=== PATIENT | male | born 1965 | race Caucasian/White ===

== ENCOUNTER → 2017-10-18 14:40 | Outpatient (CLI) | payer MEDICAID, SELFPAY ==
--- NOTE | 2017-10-18 14:43 | MR_ITS ---
MR elbow RT wo con CLINICAL INDICATION: Pain and swelling in elbow ITS.REASON: LATERAL EPICONDYLITIS, RIGHT ELBOW ORDERING PHYSICIAN: Damien Childs PATIENT AGE: 51 years Comparison: 09/14/2016 TECHNIQUE: Routine multiplanar multiecho sequences are performed without contrast. FINDINGS: Motion artifact obscures fine detail. This is especially prominent on the coronal 3-D images. Ligamentous structures are somewhat obscured secondary to the motion artifact which may result in false-positive or false-negative findings. A marker is placed along the medial aspect of the elbow joint as apparent palpable abnormality. No obvious fracture or bone bruise. There is a small amount fluid within the elbow joint. Mild soft tissue swelling is present in the subcutaneous region in the medial aspect of the elbow just superior to the placed marker. There is mild thickening of the common extensor tendon suggesting mild lateral epicondylitis. A small amount fluid is present in this region as well. As mentioned previously the lateral collateral ligament is not identified and may be torn. The biceps tendon and triceps tendon are intact. IMPRESSION: 1. Study is somewhat limited secondary to motion artifact. The ligaments about the elbow are therefore not well delineated. 2. There is mild soft tissue swelling along the medial aspect of the elbow involving the subcutaneous soft tissues. 3. 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
== END ==
PROVIDERS: Family Provider Emergency Medicine; PCP Emergency Medicine; Visit Provider Orthopaedic Surgery Adult Reconstructive Orthopaedic Surgery
DX: M77.11 Lateral epicondylitis, right elbow (principal)
CPT/HCPCS: 73221

== ENCOUNTER → 2018-02-01 14:19 | Outpatient (CLI) | payer MEDICAID, SELFPAY ==
--- NOTE | 2018-02-01 14:25 | US_ITS ---
US kidney retroperitoneal comp HISTORY: ITS.REASON: ABNORMAL KIDNEY FUNCTION ORDERING PHYSICIAN: Sana Serrano PATIENT AGE: 52 years Comparison: None FINDINGS: RIGHT KIDNEY:Unremarkable. Normal size and echogenicity. No hydronephrosis 10 x 5 x 7 cm LEFT KIDNEY:Unremarkable. No hydronephrosis. Normal size and echogenicity. 10 x 5 x 6 cm OTHER FINDINGS: No other pertinent findings IMPRESSION: Unremarkable renal ultrasound
== END ==
PROVIDERS: PCP Nurse Practitioner; Visit Provider Nurse Practitioner
DX: R94.4 Abnormal results of kidney function studies (principal)
CPT/HCPCS: 76770

== ENCOUNTER → 2018-05-18 11:25 | Outpatient (CLI) | payer MEDICAID, SELFPAY | PROVIDERS: PCP Nurse Practitioner; Visit Provider Physician Assistant | DX: R07.9 Chest pain, unspecified (principal); R94.31 Abnormal electrocardiogram [ECG] [EKG]; F17.200 Nicotine dependence, unspecified, uncomplicated; I10 Essential (primary) hypertension; I25.118 Atherosclerotic heart disease of native coronary artery with other forms of angina pectoris | CPT/HCPCS: 93225 ==

== ENCOUNTER → 2018-05-24 11:27 | Outpatient (CLI) | payer MEDICAID, SELFPAY ==
--- NOTE | 2018-05-24 11:31 | NM_ITS ---
History and Indications: History of [place], hypertension, tobacco use, family history, chest pain, palpitations, fatigue and abnormal EKG. Procedure: Patient received a 0.4 mg of intravenous Lexiscan, resting heart rate was 58 beats prominent, resting blood pressure 155/90, with intravenous was 87 bpm which is less than 85% of the maximum predicted heart rate and a blood pressure was 122/90. With Lexiscan patient complained of shortness of breath. Electrocardiogram: Resting electrocardiogram showed sinus bradycardia, rightward axis, with Lexiscan there is less than 1.[address] segment depression noted from the baseline EKG. The EKG portion of the Lexiscan Myoview is nondiagnostic. Cardiac stress and resting SPECT images: Cardiac stress and resting SPECT images were obtained using technetium 99 Myoview 32.0 mCi stress and 10.4 mCi at rest. Gated SPECT further analysis of segmental wall motion and calculation of the ejection fraction also done. Cardiac stress and resting SPECT images show uniform myocardial activity without segmental perfusion abnormality, computer derived ejection fraction is 58% with no regional wall motion abnormality, right ventricle is normal size and contractility. Conclusion: 1. The EKG portion of the Lexiscan Myoview is nondiagnostic. 2. No scintigraphic evidence of reversible ischemia seen, computer derived ejection 58% with no regional wall motion abnormality, right ventricle is normal size and contractility. 3. Normal Lexiscan Myoview study.
--- NOTE | 2018-05-24 11:48 | CA_ITS ---
PROCEDURE: 2-D M-mode and color Doppler study INDICATIONS FOR THE TEST: Chest pain + COPD Heart Murmur Tobacco Smoking+ Palpitations Fatigue Syncope Edema Hypertension+Diabetes Mellitus Rheumatic Fever SOB SPENCER Obesity Hyperlipidemia Family History HD Additional History CAD, ABN EKG PATIENT INFORMATION HEIGHT: 72 WEIGHT:237 GENDER: Male B/P:146/91 2-D/M-MODE INTERPRETATION: 2-D MEASUREMENTS OBSERVED VALUES IN CMS Right Ventricular Dimension (RVDd) 2.6 Interventricular Septum (Thickness)(IVsd) 1.5 Left Ventricular Internal Dimensions(LVIDd) 5.1 Left Ventricular Posterior Wall (Thickness)(LVPWd) 1.2 Aortic Root 3.9 Aortic Cusp Separation 2.1 Left Atrial Dimensions (LAD) 3.7 2D 1. Left atrium is mildly enlarged, left ventricle is normal size, there is mild concentric left ventricular hypertrophy, visually estimated ejection fraction 55% with no regional wall motion abnormality. 2. The right atrium and right ventricle are mildly enlarged with normal contractility. 3. The aortic valve is minimally thickened and fibrosed. 4. The mitral and tricuspid valvular grossly normal. 5. The pulmonic valve is poorly visualized. 6. No significant pericardial effusion noted. DOPPLER INTERROGATION: Doppler interrogation of the aortic, mitral and tricuspid valvular presence of mild mitral and tricuspid regurgitation, tricuspid regurgitation jet velocity is inadequate for calculation of the right ventricular systolic pressure, grade 1 diastolic dysfunction seen with tissue Doppler evidence of raised left atrial pressure. CONCLUSION: 1. Mildly enlarged left atrium, normal left ventricular size, mild concentric left ventricular hypertrophy, visually estimated ejection fraction 55% with no regional wall motion abnormality, grade 1 diastolic dysfunction seen with tissue Doppler evidence of raised left atrial pressure. 2. Mildly enlarged right ventricle with normal contractility. 3. Mild mitral and tricuspid regurgitation 4. No significant pericardial effusion noted.
--- NOTE | 2018-05-24 14:50 | HMH.ITSHM ---
Current Home Medications as stated by this patient Luca Kauffman or passenger relations representative. []LISINOPRIL ISOSORBIDE MEDCAVE VYCODENE
== END ==
PROVIDERS: PCP Family Medicine; Visit Provider Internal Medicine
DX: R07.9 Chest pain, unspecified (principal); R94.31 Abnormal electrocardiogram [ECG] [EKG]; I10 Essential (primary) hypertension; I25.118 Atherosclerotic heart disease of native coronary artery with other forms of angina pectoris; F17.200 Nicotine dependence, unspecified, uncomplicated
CPT/HCPCS: 78452; 93306; A9502; J2785

== ENCOUNTER → 2018-08-27 12:27 | Outpatient (CLI) | payer MEDICAID, SELFPAY ==
--- NOTE | 2018-08-27 12:29 | CT_ITS ---
CT chest wo con HISTORY: Abnormal chest x-ray, chest pain, ovary nodule ITS.REASON: PULMONARY NODULE ORDERING PHYSICIAN: Marquise Wilkins PATIENT AGE: 52 years COMPARISON: 07/30/2018 Technique: Axial images obtained without contrast. Sagittal, and coronal reformatted images are also generated and reviewed. All CT scans at the facility use one or more dose reduction, viz: automated exposure control, ma/kV adjustment per patient size (including targeted exams where dose is matched to indication, i.e. head), or iterative reconstruction technique. FINDINGS: Thyroid gland is slightly prominent on both sides. Scattered small lymph nodes are present in the mediastinum and janene. Normal heart size. No evidence pericardial effusion. There are centrilobular emphysematous changes with scattered areas of scarring with coarsening of the bronchovascular markings and mild prominence of the interstitium which may be seen with smoking-related lung disease. Please correlate with clinical findings. No lobar consolidation or collapse. There is an overall slight haziness of the pulmonary markings. There is a 5 mm noncalcified nodule in the left lower lobe. There is a 9 mm parenchymal opacity in the right upper lobe anteriorly in the subpleural region which may be related to an area of parenchymal scarring. A small fissural nodules present on the right in the mid aspect of the major fissure at 5 mm. The abnormality noted on the radiograph is felt to be related to some scarring in the right middle lobe. No acute bony findings. IMPRESSION: 1. Centrilobular emphysema with COPD with coarsening of the bronchovascular markings and mild prominence of interstitium with an overall hazy appearance of the lung markings on both sides which may be related to smoking-related lung disease. 2. Scattered parenchymal opacities as described above which represent areas of parenchymal scarring including a 8 mm opacity in the right upper lobe medially. Recommend 6 month follow-up to confirm stability
== END ==
PROVIDERS: PCP Nurse Practitioner; Visit Provider Internal Medicine Critical Care Medicine
DX: R91.1 Solitary pulmonary nodule (principal)
CPT/HCPCS: 71250

== ENCOUNTER → 2018-09-13 14:11 | Outpatient (CLI) | payer MEDICAID, SELFPAY ==
[2018-09-13 18:21] LABS: Free T4 (Free Thyroxine) 0.94 ng/dl (0.76-1.46)
== END ==
PROVIDERS: Visit Provider Otolaryngology
DX: E01.0 Iodine-deficiency related diffuse (endemic) goiter (principal); R13.10 Dysphagia, unspecified
CPT/HCPCS: 36415; 84439; 84443

== ENCOUNTER → 2018-09-19 08:36 | Outpatient (CLI) | payer MEDICAID, SELFPAY ==
--- NOTE | 2018-09-19 08:39 | FL_ITS ---
EXAM: Barium swallow/esophagram. INDICATION: ITS.REASON: dysphagia ORDERING PHYSICIAN: Gilbert Stark MD PATIENT AGE: 52 years COMPARISON: None TECHNIQUE: In the upright position the patient was observed to swallow barium in both the AP and lateral view. The cervical esophagus was examined under fluoroscopy with images obtained. The patient was then placed prone in the right anterior oblique position and was observed to swallow barium with Valsalva technique . FLUOROSCOPY TIME: 56 seconds FINDINGS: There was no evidence of aspiration. There was normal peristalsis. No filling defects or mucosal abnormalities. No masses or strictures. No hiatal hernia or reflux demonstrated. The esophagus does not appear deviated IMPRESSION: Negative barium swallow.
--- NOTE | 2018-09-19 08:39 | US_ITS ---
US thyroid HISTORY: ITS.REASON: enlarged thyroid ORDERING PHYSICIAN: Gilbert Stark MD PATIENT AGE: 52 years Comparison: None FINDINGS: The isthmus is prominent at 6 mm. The right lobe measures 4.7 x 1 point #2.3 cm. The left lobe measures 4.5 x 1.8 x 2.6 cm. No discrete mass evident. No cyst apparent IMPRESSION: Thyroid enlargement, no discrete nodules apparent
== END ==
PROVIDERS: PCP Family Medicine; Visit Provider Otolaryngology
DX: E01.0 Iodine-deficiency related diffuse (endemic) goiter (principal); R13.10 Dysphagia, unspecified
CPT/HCPCS: 74220; 76536

== ENCOUNTER → 2019-01-04 10:03 | Outpatient (CLI) | payer MEDICAID, SELFPAY ==
[2019-01-04 11:06] LABS: Basophils # 0.1 K/mm3 (0-0.2); Basophils % 0.9 % (0.1-2.0); Eosinophils # 0.3 K/mm3 (0.0-0.4); Eosinophils % 3.4 % (0.1-12.0); Hematocrit 48.7 % (42.0-52.0); Hemoglobin 16.4 g/dL (14.1-18.0); Lymphocytes # 2.2 K/mm3 (0.7-4.5); Lymphocytes % 29.9 % (10-50); Mean Corpuscular HGB Conc 33.7 g/dL (31.8-35.4); Mean Corpuscular Hemoglobin 31.8 pg (27.0-31.2); Mean Corpuscular Volume 94.3 fl (80-94); Mean Platelet Volume 10.1 fl (7.4-10.4); Monocytes # 0.4 K/mm3 (0.1-1.0); Monocytes % 5.8 % (1.7-9.3); Neutrophils # 4.4 K/mm3 (1.8-7.8); Neutrophils % 59.9 % (37.0-80.0); Platelet Count 132 K/mm3 (142-424); Red Blood Count 5.16 M/mm3 (4.60-6.20); Red Cell Distribution Width 13.3 % (11.5-17.5); White Blood Count 7.3 K/mm3 (4.8-10.8)
[2019-01-04 13:32] LABS: Alanine Aminotransferase 31 U/L (12-78); Albumin Level 3.5 gm/dL (3.4-5.0); Albumin/Globulin Ratio 1.2 (1.1-1.8); Alkaline Phosphatase 150 U/L (46-116); Anion Gap 12.4 mEq/L (5-15); Aspartate Amino Transferase 13 U/L (15-37); Bilirubin,Total 0.4 mg/dL (0.2-1.0); Blood Urea Nitrogen 7 mg/dL (7-18); Calcium 8.7 mg/dL (8.5-10.1); Carbon Dioxide 29 mmol/L (21.0-32.0); Chloride 105 mmol/L (98-107); Creatinine,Serum 1.14 mg/dL (0.70-1.30); Estimated Glomerular Filt Rate 68 ml/min (>60); GFR (African American) 82 ML/MIN (>60); Glucose 93 mg/dL (74-106); Potassium 3.4 mmoL/L (3.5-5.1); Sodium 143 mmol/L (136-145); Thyroid Stimulating Hormone 1.82 uIU/ml (0.358-3.740); Total Protein,Serum 6.5 gm/dL (6.4-8.2)
[2019-01-07 15:26] LABS: Anti-Centromere B Antibodies <0.2 AI (0.0-0.9); Anti-Jo-1 <0.2 AI (0.0-0.9); Anti-Smith Antibody <0.2 AI (0.0-0.9); Antichromatin Antibodies 0.5 AI (0.0-0.9); Antiscleroderma-70 Antibodies <0.2 AI (0.0-0.9); RNP Antibodies <0.2 AI (0.0-0.9); Sjogren's Anti-SS-A <0.2 AI (0.0-0.9); Sjogren's Anti-SS-B <0.2 AI (0.0-0.9)
[2019-01-08 06:56] LABS: Anti-DNA (DS) Ab Qn 1 IU/mL (0-9)
== END ==
PROVIDERS: Visit Provider Nurse Practitioner Family
DX: R59.0 Localized enlarged lymph nodes (principal); R53.83 Other fatigue
CPT/HCPCS: 36415; 80053; 82330; 84443; 85025; 86225; 86235

== ENCOUNTER → 2019-01-22 07:40 | Outpatient (CLI) | payer MEDICAID, SELFPAY ==
--- NOTE | 2019-01-22 07:50 | US_ITS ---
PROCEDURE: US ABDOMEN COMPLETE CLINICAL INDICATION: SPLENOMEGALY COMPARISON: [facility] CT abdomen pelvis wo con from 07/30/2018 FINDINGS: PANCREAS: Unremarkable. No obvious mass or abnormal fluid collection. No ductal dilatation LIVER: No focal liver lesions demonstrated. Homogeneous echogenicity. No intrahepatic biliary ductal dilatation evident. There is appropriate direction of blood flow within a non dilated portal vein RIGHT KIDNEY: Unremarkable. Normal size and echogenicity. No hydronephrosis LEFT KIDNEY: Unremarkable. Normal size and echogenicity. No hydronephrosis GALLBLADDER: Prior cholecystectomy. Common bile duct is normal at 3 mm AORTA: No evidence of aneurysmal dilatation. SPLEEN: Borderline splenomegaly at 13 cm. Homogeneous echogenicity of the spleen ASCITES: None demonstrated. IMPRESSION: Borderline splenomegaly. Status post cholecystectomy Dictated by: Tom Knox MD 01/22/2019 10:54 Signed by: <Electronically signed by Tom Knox MD in [place]> 01/22/2019 10:54
== END ==
PROVIDERS: PCP Nurse Practitioner; Visit Provider Nurse Practitioner
DX: D73.81 Neutropenic splenomegaly (principal)
CPT/HCPCS: 76700

== ENCOUNTER 2019-02-18 10:47 | Observation (INO) ==
--- NOTE | 2019-02-18 11:08 | Emergency Department Note ---
ED Disposition Clinical Impression: Allergic reaction Qualifiers: Encounter type: initial encounter Qualified Code(s): T78.40XA - Allergy, unspecified, initial encounter Disposition: Admitted As Inpatient Condition on Discharge: Fair Referrals: Sana Serrano APRN [Primary Care Provider] - - Critical Care Critical Care Time: No Attestation: On 02/18/19, the high probability of a clinically significant, sudden or life threatening deterioration of the following system(s) required my full and direct attention, intervention and personal management. The time I documented below is in addition to time spent performing reported procedures but includes the following listed in this critical care notation. Medical Decision Making - [place] Inquiry Pt receiving controlled substance: No Vital Signs: 02/18/19 11:00 Temperature 99.4 F Temperature Source Oral Pulse Rate [Left Radial] 71 Respiratory Rate 18 Blood Pressure [Right Arm] 129/92 H Blood Pressure Mean [Right Arm] 104 Blood Pressure Source [Right Arm] Automatic Cuff Blood Pressure Position [Right Arm] Sitting 02 Sat by Pulse Oximetry 96 Oxygen Delivery Method Room Air Orders (Tests/Meds): ED MEDICATIONS Generic Name Dose Route Start Last Admin Trade Name Freq PRN Reason Stop Dose Admin Sodium Chloride 8 ml 02/18/19 11:10 02/18/19 11:16 Sodium Chloride 0.9% 10ml Vial IV 03/20/19 11:09 8 ml NEEDED PRN Administration dilute pepcid Discontinued Medications Generic Name Dose Route Start Last Admin Trade Name Freq PRN Reason Stop Dose Admin Diphenhydramine HCl 50 mg 02/18/19 11:05 02/18/19 11:16 Benadryl 50mg/1ml Vial IV 02/18/19 11:06 50 mg ONCE ONE Administration Famotidine 20 mg 02/18/19 11:10 02/18/19 11:16 Pepcid 20mg/2ml Vial IV 02/18/19 11:11 20 mg ONCE ONE Administration ORDERS Category Date Time Status BMP [Basic Metabolic Panel] Stat Lab 02/18/19 11:04 Ordered Complete Blood Count Auto Diff Stat Lab 02/18/19 11:04 Ordered Medical Decision Narrative: Patient with possible allergic reaction, also considered reaction to lisinopril given swollen tongue and lower lip. He complains of left eyelid swelling, but really this appears to be more related to a stye as the entire lid is not swollen. Will hold lisinopril, admit for observation. No airway emergency at this time and patient does not feel like he is having any breathing difficulties. He states that he "swells" with steroids, so I have given him IV Benadryl and Pepcid at this time. Discussed his case with Dr. Roach and patient will be admitted for further management. Allergic React/Insect Bite HPI - General Chief complaint: Allergic Reaction Stated complaint: lips and eyes are swollen Time Seen by Provider: 02/18/19 11:05 Mode of Arrival - ED Triage: Ambulatory Limitations: No Limitations - History of Present Illness HPI narrative: This is a 53-year-old male with a past medical history significant for hypertension, COPD who presents to the emergency department for lip, tongue, left eyelid swelling since yesterday. He tried taking Benadryl last night, but symptoms were worse this morning. He states that he cannot take steroids and is allergic to these. He has multiple medication allergies, but has not had any new medications, new foods or new environmental exposures to his knowledge. He denies any difficulty breathing. He does take lisinopril once a day, but has never had an allergic reaction before to this. He denies any chest pain, vomiting. MD complaint: allergic reaction Allergies/Adverse Reactions: Allergies Allergy/AdvReac Type Severity Reaction Status Date / Time ciprofloxacin Allergy Severe S-DIFF. Verified 09/13/18 13:34 BREATHING; SWELLING Corticosteroids Allergy Severe S-SWELLS-OR Verified 09/13/18 13:34 (Glucocorticoids) AL/THROAT erythromycin base Allergy Severe S-DIFF. Verified 09/13/18 13:34 BREATHING; SWELLING Fish Containing Products Allergy Severe S-DIFF. Verified 09/13/18 13:34 [From SEAFOOD (F/D)] BREATHING; SWELLING iopamidol Allergy Severe S-DIFF. Verified 09/13/18 13:34 BREATHING; SWELLING NSAIDS (Non-Steroidal Allergy Severe BLEEDING Verified 09/13/18 13:34 Anti-Inflamma Penicillins Allergy Severe S-DIFF. Verified 09/13/18 13:34 BREATHING; SWELLING tramadol Allergy Severe S-DIFF. Verified 09/13/18 13:34 BREATHING; SWELLING From SEAFOOD (F/D) Allergy Severe S-DIFF. Uncoded 05/08/18 14:05 BREATHING; SWELLING - Related Data Home Medications Medication Instructions Recorded Confirmed hydrocodone 5 mg-acetaminophen 500 1 tab PO QID PRN tab 07/21/17 02/18/19 mg tablet nitroglycerin 0.4 mg sublingual 0.4 mg SUBLINGUAL Q5M PRN 07/21/17 02/18/19 tablet pantoprazole 40 mg tablet,delayed 40 mg PO QAM 07/21/17 02/18/19 release methocarbamol 750 mg tablet 750 mg PO QID PRN 02/08/18 02/18/19 Amlodipine Besylate 2.5 mg PO DAILY 07/30/18 02/18/19 Isosorbide Mononitrate [Imdur 30mg 30 mg PO DAILY 07/30/18 02/18/19 ER tablet] Lisinopril/Hydrochlorothiazide 1 tab PO DAILY 07/30/18 02/18/19 [Lisinopril-Hctz 10-12.5 mg Tab] [facility] History - Hepatitis A Screen Drug use history?: No High risk sexual behaviors?: No History of sexually transmitted infection?: No Currently employed?: No Childcare worker?: No Do you have indoor plumbing?: No Do you have electricity?: Yes Attestation statement:: This patient has been screened for Hepatitis A risk factors. Medical History: Reports:: Asthma, Cancer, Chronic Obstructive Pulmonary Disease (COPD), Gastroesophageal Reflux Disease(GERD), Hypertension, Palpitations Denies:: Diabetes Mellitus Type 1, Diabetes Mellitus Type 2 Other Medical History: Reports: Arthritis Laterality Cases: Right: Arthroscopy Shoulder, Bilateral: Arthroscopy Knee Other Surgeries: Yes: Cancer Surgery, Cardiac Catheterization, Cholecystectomy, Colonoscopy, Other Amputation: No Fractures: No Comment: hemorrhoid, R tendon repair Elbow & Wrist. - Social History Smoking Status: Current every day smoker Tobacco Type: cigarettes # Packs/Day (cigarettes): 1 Alcohol Intake: never Alcohol Intake Frequency:: 0-2 drinks per day Substance Use Type: denies use Occupational Status: other Family Hx:: Coronary Artery Disease, Heart Attack ROS Obtained: Yes All systems reviewed & no additional complaints Physical Exam - General General appearance: alert, in no apparent distress - Eye Eye exam: Present: PERRL, other (Mild swelling of the upper lid on the left) - ENT ENT exam: Present: other (Swollen tongue and lower lip,) - Neck Neck exam: Present: normal inspection, full ROM, trachea midline. Absent: meningismus, lymphadenopathy - Respiratory Respiratory exam: Present: normal lung sounds bilaterally. Absent: respiratory distress - Cardiovascular Cardiovascular exam: Present: regular rate, normal rhythm. Absent: JVD - Abdominal Exam Abdominal exam: Present: soft, normal bowel sounds. Absent: distention, tenderness, guarding - Extremities Exam Extremities exam: Present: normal inspection, normal capillary refill. Absent: joint swelling - Neurological Exam Neurological exam: Present: alert, oriented X3 - Psychiatric Psychiatric exam: Present: normal affect, normal mood - Skin Skin exam: Present: warm, dry, intact, normal color. Absent: rash
[2019-02-18 11:32] LABS: Basophils # 0.1 K/mm3 (0-0.2); Basophils % 0.7 % (0.1-2.0); Eosinophils # 0.3 K/mm3 (0.0-0.4); Eosinophils % 3.6 % (0.1-12.0); Hematocrit 51.7 % (42.0-52.0); Hemoglobin 16.7 g/dL (14.1-18.0); Lymphocytes # 2.4 K/mm3 (0.7-4.5); Lymphocytes % 27.8 % (10-50); Mean Corpuscular HGB Conc 32.2 g/dL (31.8-35.4); Mean Corpuscular Volume 95.9 fl (80-94); Mean Platelet Volume 10.1 fl (7.4-10.4); Monocytes # 0.6 K/mm3 (0.1-1.0); Neutrophils # 5.2 K/mm3 (1.8-7.8); Neutrophils % 60.9 % (37.0-80.0); Platelet Count 154 K/mm3 (142-424); Red Blood Count 5.39 M/mm3 (4.60-6.20); Red Cell Distribution Width 13.6 % (11.5-17.5); White Blood Count 8.5 K/mm3 (4.8-10.8)
[2019-02-18 12:02] LABS: Anion Gap 12.7 mEq/L (5-15); Calcium 8.9 mg/dL (8.5-10.1)
--- NOTE | 2019-02-18 17:46 | H&P/Discharge Summary ---
General - General Admission date:: 02/18/19 Discharge date: 02/18/19 *Admission Date: 02/18/19 *Chief complaint: Swelling of lips and eyes *History of present illness: 53-year-old male presented to the emergency department with nonpruritic swelling of the lower lip as well as the eyes left more so than right. Patient awoke like this this morning. He denies similar history. He does take lisinopril for hypertension. Patient was given IV Benadryl in the emergency department. He indicated to staff that he felt like his tongue was mildly swollen and decision was made to admit for observation. [facility] History I have reviewed the patient's past medical history: Yes Medical History: Reports:: Asthma, Cancer, Chronic Obstructive Pulmonary Disease (COPD), Gastroesophageal Reflux Disease(GERD), Hypertension, Palpitations Denies:: Diabetes Mellitus Type 1, Diabetes Mellitus Type 2, MRSA *Have you ever received a pneumonia vaccine?: Yes *Have you received a flu vaccine this season?: Yes Other Medical History: Reports: Arthritis Laterality Cases: Right: Arthroscopy Shoulder, Bilateral: Arthroscopy Knee Other Surgeries: Yes: Cancer Surgery, Cardiac Catheterization, Cholecystectomy, Colonoscopy, Other Amputation: No Fractures: No - *Social History Educational Level: Completed College Smoking Status: Current every day smoker Tobacco Type: cigarettes # Packs/Day (cigarettes): 1 Alcohol Intake: never Alcohol Intake Frequency:: 0-2 drinks per day Substance Use Type: denies use *Occupational Status:: retired, other Housing: house Household Members: family *Travel in the last 8 weeks: None Family Hx:: Coronary Artery Disease, Heart Attack Review of Systems - Review of Systems Review of systems:: pertinent systems reviewed and negative unless documented below Exam Vital signs and Labs for Last 24 Hours: Temp Pulse Resp BP Pulse Ox 98.7 F 54 L 18 157/93 H 96 02/18/19 16:00 02/18/19 16:00 02/18/19 16:00 02/18/19 16:00 02/18/19 16:00 Laboratory Results - last 24 hr 02/18/19 11:20: WBC 8.5, RBC 5.39, Hgb 16.7, Hct 51.7, MCV 95.9 H, MCH 30.9, MCHC 32.2, RDW 13.6, Plt Count 154, MPV 10.1, Neut % (Auto) 60.9, Lymph % (Auto) 27.8, [place] % (Auto) 7.0, Eos % (Auto) 3.6, Baso % (Auto) 0.7, Neut # (Auto) 5.2, Lymph # (Auto) 2.4, [place] # (Auto) 0.6, Eos # (Auto) 0.3, Baso # (Auto) 0.1 02/18/19 11:20: Sodium 142, Potassium 3.7, Chloride 105, Carbon Dioxide 28, Anion Gap 12.7, BUN 5 L, Creatinine 1.05, Estimated Creat Clear 107, Estimated GFR 74, Est GFR ( Amer) 90, Glucose 93, Calcium 8.9 I & O for Last 24 hours: Intake & Output 02/16/19 02/17/19 02/18/19 02/19/19 11:59 11:59 11:59 11:59 Output Total 0 / 0 Balance 0 / 0 Weight 232 lb 6 oz Narrative: Patient is in no distress. The left upper eyelid is mildly swollen. Sclera are clear. Extraocular movements are intact. Oropharynx is moist and clear. Tongue does not appear swollen nor any evidence of glossitis. The lower lip is mildly swollen. Of note patient had a picture of his lip when he first awoke this morning and there has been significant improvement in amount of swelling. Neck has no lymphadenopathy or carotid bruits. Lungs are clear. Heart has a regular rate and rhythm. Neurologically he has a grossly normal exam Hospital Course Hospital Course: Patient was given IV Benadryl and IV Pepcid in the emergency department. He was given additional doses of oral Benadryl after he was admitted to the floor for observation. Swelling in both eyelid and the lip improved and patient was discharged to home. Patient does not need to follow-up in the office. He has been taken off of his lisinopril and will be given amlodipine for his hypertension Results Labs on day of discharge: Labs from last 24 hours 02/18/19 02/18/19 11:20 11:20 WBC 8.5 RBC 5.39 Hgb 16.7 Hct 51.7 MCV 95.9 H MCH 30.9 MCHC 32.2 RDW 13.6 Plt Count 154 MPV 10.1 Neut % (Auto) 60.9 Lymph % (Auto) 27.8 [place] % (Auto) 7.0 Eos % (Auto) 3.6 Baso % (Auto) 0.7 Neut # (Auto) 5.2 Lymph # (Auto) 2.4 [place] # (Auto) 0.6 Eos # (Auto) 0.3 Baso # (Auto) 0.1 Sodium 142 Potassium 3.7 Chloride 105 Carbon Dioxide 28 Anion Gap 12.7 BUN 5 L Creatinine 1.05 Estimated Creat Clear 107 Estimated GFR 74 Est GFR ( Amer) 90 Glucose 93 Calcium 8.9 DS: Diagnosis - Discharge Diagnosis (1) Angioedema due to angiotensin converting enzyme inhibitor (MALLORY-I) Status: Acute Discharge Plan - Patient Discharge Instructions ACTIVITY: Continue current activity DIET: continue same diet - Follow up Plan Disposition: Home, Self-Long-Term Medications: Home Medications Medication Instructions Recorded Confirmed Type hydrocodone 5 mg-acetaminophen 500 1 tab PO QID PRN tab 07/21/17 02/18/19 History mg tablet nitroglycerin 0.4 mg sublingual 0.4 mg SUBLINGUAL Q5M PRN 07/21/17 02/18/19 History tablet pantoprazole 40 mg tablet,delayed 40 mg PO QAM 07/21/17 02/18/19 History release methocarbamol 750 mg tablet 750 mg PO QID PRN 02/08/18 02/18/19 History Isosorbide Mononitrate [Imdur 30mg 30 mg PO DAILY 07/30/18 02/18/19 History ER tablet] Lisinopril/Hydrochlorothiazide 1 tab PO DAILY 07/30/18 02/18/19 History [Lisinopril-Hctz 10-12.5 mg Tab] Amlodipine Besylate [Amlodipine 5 mg PO DAILY #30 tab 02/18/19 Rx 5mg tab] hydroCHLOROthiazide 12.5 mg PO DAILY #30 tab 02/18/19 Rx [Hydrochlorothiazide 12.5mg Tab] Prescriptions/Medication Reconciliation: New hydroCHLOROthiazide [Hydrochlorothiazide 12.5mg Tab] 12.5 mg PO DAILY #30 tab Amlodipine Besylate [Amlodipine 5mg tab] 5 mg PO DAILY #30 tab Continued nitroglycerin 0.4 mg sublingual tablet 0.4 mg SUBLINGUAL Q5M PRN PRN Reason: Chest Pain hydrocodone 5 mg-acetaminophen 500 mg tablet 1 tab PO QID PRN tab PRN Reason: pain methocarbamol 750 mg tablet 750 mg PO QID PRN PRN Reason: spasms pantoprazole 40 mg tablet,delayed release 40 mg PO QAM Isosorbide Mononitrate [Imdur 30mg ER tablet] 30 mg PO DAILY Discontinued Lisinopril/Hydrochlorothiazide [Lisinopril-Hctz 10-12.5 mg Tab] 1 tab PO DAILY - Problem Reconciliation Problems Reviewed?: Yes
== END 2019-02-18 18:28 | disposition home or self-care (01) ==
LOC: ER 10:47 → 2ND 10:47
PROVIDERS: ADMIT Family Medicine; ATTEND Family Medicine
DX: J44.9 Chronic obstructive pulmonary disease, unspecified; Z72.0 Tobacco use; Z88.1 Allergy status to other antibiotic agents; T78.3XXA Angioneurotic edema, initial encounter; Z88.8 Allergy status to other drugs, medicaments and biological substances; Z88.0 Allergy status to penicillin; Z91.041 Radiographic dye allergy status; Z88.6 Allergy status to analgesic agent; Z79.899 Other long term (current) drug therapy; Z91.013 Allergy to seafood
CPT/HCPCS: 80048; 85025; 96374; 96375; 99283; G0378

== ENCOUNTER → 2019-02-28 09:28 | Outpatient (CLI) | payer MEDICAID, SELFPAY ==
[2019-02-28 10:09] LABS: Basophils # 0.1 K/mm3 (0-0.2); Basophils % 1.4 % (0.1-2.0); Eosinophils # 0.3 K/mm3 (0.0-0.4); Eosinophils % 2.9 % (0.1-12.0); Hematocrit 50.5 % (42.0-52.0); Hemoglobin 16.4 g/dL (14.1-18.0); Lymphocytes # 2.6 K/mm3 (0.7-4.5); Lymphocytes % 26.1 % (10-50); Mean Corpuscular HGB Conc 32.5 g/dL (31.8-35.4); Mean Corpuscular Hemoglobin 31.1 pg (27.0-31.2); Mean Corpuscular Volume 95.7 fl (80-94); Mean Platelet Volume 10.1 fl (7.4-10.4); Monocytes # 0.8 K/mm3 (0.1-1.0); Monocytes % 7.6 % (1.7-9.3); Neutrophils # 6.1 K/mm3 (1.8-7.8); Neutrophils % 61.9 % (37.0-80.0); Platelet Count 168 K/mm3 (142-424); Red Blood Count 5.28 M/mm3 (4.60-6.20); Red Cell Distribution Width 13.7 % (11.5-17.5); White Blood Count 9.8 K/mm3 (4.8-10.8)
[2019-02-28 11:17] LABS: Lactate Dehydrogenase 192 U/L (82-234)
[2019-03-01 14:26] LABS: Immunoglobulin A, Qn 270 mg/dL (90-386); Immunoglobulin G, Qn 778 mg/dL (700-1600)
[2019-03-01 15:10] LABS: Albumin 3.8 g/dL (2.9-4.4); Alpha-1-Globulin 0.3 g/dL (0.0-0.4); Alpha-2-Globulin 0.9 g/dL (0.4-1.0); Free Kappa Lt Chains 22.1 mg/L (3.3-19.4); Free Lambda Lt Chains 20.6 mg/L (5.7-26.3); Gamma Globulin 0.8 g/dL (0.4-1.8); Protein, Total 6.9 g/dL (6.0-8.5)
[2019-03-01 17:06] LABS: Immunoglobulin M, Qn 81 mg/dL (20-172)
[2019-03-02 09:30] LABS: Peripheral Smear Review Scanned Result
== END ==
PROVIDERS: PCP Emergency Medicine; Visit Provider Internal Medicine Medical Oncology
DX: D73.81 Neutropenic splenomegaly (principal)
CPT/HCPCS: 36415; 82784; 83615; 83883; 84155; 84165; 85025; 86334

== ENCOUNTER → 2019-05-21 13:57 | Outpatient (CLI) | payer MEDICAID, SELFPAY ==
--- NOTE | 2019-05-21 13:57 | US_ITS ---
PROCEDURE: MM DIG MAMM BI DX W/CAD CLINICAL INDICATION: breast lump Which okay digits text [facility] if you treated not all abdominal P still COMPARISON: No exams were available for comparison TECHNIQUE: Standard CC and MLO images were obtained. R2 CAD reviewed. FINDINGS: IMPRESSION: BI-RAD Category: FOLLOW-UP: (A letter has been sent to the patient regarding results of the study.) Dictated by: Tom Knox MD 05/24/2019 11:16 Electronically signed by Tom Knox MD in [place] 05/24/2019 11:16
== END ==
PROVIDERS: PCP Emergency Medicine; Visit Provider Nurse Practitioner Family
DX: N63.41 Unspecified lump in right breast, subareolar (principal); N64.4 Mastodynia
CPT/HCPCS: 76641; 77066

== ENCOUNTER → 2019-07-23 10:59 | Outpatient (CLI) | payer MEDICAID, SELFPAY ==
--- NOTE | 2019-07-23 11:02 | FL_ITS ---
PROCEDURE: FL BARIUM SWALLOW MODIFIED CLINICAL INDICATION: DYSPHAGIA COMPARISON: No exams were available for comparison TECHNIQUE: Patient administered varying consistencies of barium contrast, while viewed in lateral position under real-time fluoroscopy with cine recording. FLUOROSCOPY TIME:1 minutes 25 seconds The study was performed in conjunction with speech pathologist. Please see that report & recommendations. FINDINGS: Patient was given varying consistencies of barium. No evidence of penetration or aspiration. No significant stasis or premature spillage. IMPRESSION: Unremarkable modified barium swallow. Please see speech pathologist report and recommendations. Dictated by: Tom Knox MD 07/25/2019 13:51 Electronically signed by Tom Knox MD in [place] 07/25/2019 13:51
== END ==
PROVIDERS: PCP Emergency Medicine; Visit Provider Internal Medicine
DX: R13.12 Dysphagia, oropharyngeal phase (principal)
CPT/HCPCS: 70371; 92611

== ENCOUNTER → 2019-08-14 08:47 | Outpatient (CLI) | payer MEDICAID, SELFPAY ==
--- NOTE | 2019-08-14 08:50 | US_ITS ---
PROCEDURE: US ABDOMEN LIMITED CLINICAL INDICATION: SPLENOMEGLY COMPARISON: US ABDOMEN COMPLETE from 01/22/2019 FINDINGS: Spleen size is upper normal at 12 cm. There is homogeneous echogenicity. No splenic mass evident. No obvious splenic mass or perisplenic fluid collection. Images of the left kidney are unremarkable. IMPRESSION: Spleen size upper limits of normal otherwise negative splenic ultrasound Dictated by: Tom Knox MD 08/14/2019 12:52 Electronically signed by Tom Knox MD in [place] 08/14/2019 12:52
--- NOTE | 2019-08-14 09:13 | CT_ITS ---
PROCEDURE: CT CHEST WO CON CLINICAL INDICATION: LUNG NODULES Follow-up lung nodule COMPARISON: ABDPELW/O CT ABD PELVIS W/O CONTRAST from 03/12/[address] chest wo con from 08/27/2018 TECHNIQUE: Axial images obtained with sagittal and coronal reformats. All CT scans at the facility use one or more dose reduction, viz: automated exposure control, ma/kV adjustment per patient size (including targeted exams where dose is matched to indication, i.e. head), or iterative reconstruction technique. FINDINGS: HEART AND MEDIASTINAL STRUCTURES: Scattered small nodes are present in the mediastinum measuring up to 14 mm. LUNGS AND PLEURAL SPACES: Centrilobular emphysema with changes of COPD. Scattered areas of scarring are noted as before. Six mm nodule left lower lobe not significantly changed. Parenchymal opacity in the right upper lobe is unchanged.. Small fissural nodule on the right is unchanged. No new nodules are evident. No lobar consolidation or collapse. BONY STRUCTURES: No acute bony abnormalities apparent. UPPER ABDOMEN: Unremarkable. ADDITIONAL FINDINGS: Scattered small bilateral axillary nodes. There is bilateral gynecomastia. IMPRESSION: Overall stable appearance of the chest. There are centrilobular emphysematous changes as well as COPD. 6 mm left lower lobe nodules unchanged. Other parenchymal opacities are unchanged as well. Dictated by: Tom Knox MD 08/15/2019 12:54 Electronically signed by Tom Knox MD in [place] 08/15/2019 12:54
[2019-08-14 09:58] LABS: Basophils # 0.1 K/mm3 (0-0.2); Basophils % 1.1 % (0.1-2.0); Eosinophils # 0.3 K/mm3 (0.0-0.4); Eosinophils % 3.9 % (0.1-12.0); Hematocrit 48.7 % (42.0-52.0); Hemoglobin 16.1 g/dL (14.1-18.0); Lymphocytes # 2.4 K/mm3 (0.7-4.5); Mean Corpuscular Hemoglobin 30.6 pg (27.0-31.2); Mean Corpuscular Volume 92.7 fl (80-94); Monocytes # 0.4 K/mm3 (0.1-1.0); Monocytes % 4.7 % (1.7-9.3); Neutrophils # 4.9 K/mm3 (1.8-7.8); Neutrophils % 60.3 % (37.0-80.0); Platelet Count 148 K/mm3 (142-424); Red Blood Count 5.26 M/mm3 (4.60-6.20); White Blood Count 8.1 K/mm3 (4.8-10.8)
[2019-08-14 10:44] LABS: Chloride 108 mmol/L (98-107); Potassium 3.8 mmoL/L (3.5-5.1); Sodium 140 mmol/L (136-145)
[2019-08-14 10:46] LABS: Alanine Aminotransferase 38 U/L (12-78); Aspartate Amino Transferase 33 U/L (17-59); Blood Urea Nitrogen 10 mg/dl (9-20); Estimated Glomerular Filt Rate 71 ml/min (>60); GFR (African American) 85 ML/MIN (>60)
[2019-08-14 10:47] LABS: Albumin/Globulin Ratio 1.7 (1.1-1.8); Alkaline Phosphatase 120 U/L (38-126); Anion Gap 9.8 mEq/L (5-15); Bilirubin,Total 0.5 mg/dl (0.2-1.3); Calcium 9.1 mg/dl (8.4-10.2); Carbon Dioxide 26 mmol/L (22.0-30.0); Globulin 2.4 g/dL (1.3-3.2); Glucose 96 mg/dl (74-100); Total Protein,Serum 6.4 g/dl (6.3-8.2)
[2019-08-15 15:23] LABS: Free Kappa Lt Chains 15.4 mg/L (3.3-19.4); Free Lambda Lt Chains 17.5 mg/L (5.7-26.3)
== END ==
PROVIDERS: PCP Emergency Medicine; Visit Provider Internal Medicine Medical Oncology
DX: R16.1 Splenomegaly, not elsewhere classified (principal); R91.8 Other nonspecific abnormal finding of lung field
CPT/HCPCS: 36415; 71250; 76705; 80053; 83883; 85025

== ENCOUNTER → 2019-08-28 09:34 | Outpatient (CLI) | payer MEDICAID, SELFPAY ==
[2019-08-28 10:30] VITALS: PULSE 71; PULSE 75
== END ==
PROVIDERS: PCP Emergency Medicine; Visit Provider Internal Medicine Sleep Medicine
DX: R06.02 Shortness of breath (principal); R91.1 Solitary pulmonary nodule
CPT/HCPCS: 94060; 94640; 94727; 94729

== ENCOUNTER → 2019-09-05 12:13 | Outpatient (CLI) | payer MEDICAID, SELFPAY | PROVIDERS: PCP Emergency Medicine; Visit Provider Internal Medicine Sleep Medicine | DX: R06.02 Shortness of breath (principal); J44.9 Chronic obstructive pulmonary disease, unspecified | CPT/HCPCS: 94618 ==

== ENCOUNTER → 2019-11-05 10:16 | Outpatient (CLI) | payer MEDICAID, SELFPAY ==
[2019-11-06 15:31] LABS: Covid-19 Nasal PCR Sendout Lex NONE DETECTED
== END ==
PROVIDERS: Visit Provider Internal Medicine Pulmonary Disease
DX: Z03.818 Encounter for observation for suspected exposure to other biological agents ruled out (principal); R59.1 Generalized enlarged lymph nodes
CPT/HCPCS: U0004

== ENCOUNTER → 2019-12-02 10:09 | Outpatient (CLI) | payer MEDICAID, SELFPAY ==
[2019-12-03 13:28] LABS: Covid-19 Nasal PCR Sendout Lex NOT DETECTED
== END ==
PROVIDERS: Visit Provider Thoracic Surgery (Cardiothoracic Vascular Surgery)
DX: Z01.818 Encounter for other preprocedural examination (principal)
CPT/HCPCS: U0004

== ENCOUNTER 2019-12-13 12:22 | Emergency (ER) | payer MEDICAID, SELFPAY ==
[2019-12-13 12:24] VITALS: BP 145/109; PULSE 85; RESP 16; TEMP 37.1; O2SAT 98; BMI 31.3
[2019-12-13 12:59] VITALS: BP 142/110; PULSE 76; O2SAT 93
[2019-12-13 13:07] LABS: Alanine Aminotransferase 31 U/L (12-78); Albumin Level 4.2 g/dl (3.5-5.0); Albumin/Globulin Ratio 1.4 (1.1-1.8); Alkaline Phosphatase 150 U/L (38-126); Anion Gap 13.2 mEq/L (5-15); Aspartate Amino Transferase 35 U/L (17-59); Blood Urea Nitrogen 9 mg/dl (9-20); Calcium 8.9 mg/dl (8.4-10.2); Carbon Dioxide 29 mmol/L (22.0-30.0); Chloride 103 mmol/L (98-107); Creatinine Clearance Estimated 128 mL/min (50-200); Estimated Glomerular Filt Rate 78 ml/min (>60); GFR (African American) 95 ML/MIN (>60); Glucose 114 mg/dl (74-100); Potassium 3.2 mmoL/L (3.5-5.1); Sodium 142 mmol/L (136-145); Total Protein,Serum 7.2 g/dl (6.3-8.2)
[2019-12-13 13:12] LABS: Lactic Acid 1.3 mmol/L (0.7-2.1)
[2019-12-13 13:16] LABS: Strep Scrn Group A (Rapid) Negative (Negative)
[2019-12-13 13:42] LABS: Basophils # 0.1 K/mm3 (0-0.2); Basophils % 0.6 % (0.1-2.0); Eosinophils # 0.3 K/mm3 (0.0-0.4); Eosinophils % 3.1 % (0.1-12.0); Hematocrit 48.5 % (42.0-52.0); Hemoglobin 16.7 g/dL (14.1-18.0); Lymphocytes # 1.9 K/mm3 (0.7-4.5); Lymphocytes % 21.9 % (10-50); Mean Corpuscular HGB Conc 34.5 g/dL (31.8-35.4); Mean Corpuscular Hemoglobin 32.7 pg (27.0-31.2); Mean Corpuscular Volume 94.8 fl (80-94); Mean Platelet Volume 11.8 fl (7.4-10.4); Monocytes # 0.5 K/mm3 (0.1-1.0); Monocytes % 6.1 % (1.7-9.3); Neutrophils # 5.8 K/mm3 (1.8-7.8); Neutrophils % 68.3 % (37.0-80.0); Platelet Count 140 K/mm3 (142-424); Red Blood Count 5.12 M/mm3 (4.60-6.20); Red Cell Distribution Width 13.6 % (11.5-17.5); White Blood Count 8.5 K/mm3 (4.8-10.8)
[2019-12-13 14:00] VITALS: BP 167/113; PULSE 75; O2SAT 90
--- NOTE | 2019-12-13 14:40 | HMH.EDFEV ---
ED Disposition Clinical Impression: Fever of unknown origin, Viral infection Disposition: Home, Self-Care Condition on Discharge: Good Instructions: Fever of Unknown Origin Additional Instructions: Please stay self isolated until we recovered test back which would be tomorrow or at the latest on Monday. Referrals: Antwan Esparza MD [Primary Care Provider] - - Critical Care Critical Care Time: No Attestation: On 12/13/19, the high probability of a clinically significant, sudden or life threatening deterioration of the following system(s) required my full and direct attention, intervention and personal management. The time I documented below is in addition to time spent performing reported procedures but includes the following listed in this critical care notation. Medical Decision Making - Medical Records Medical records reviewed: Yes: I reviewed the patient's medical records. - [place] Inquiry Pt receiving controlled substance: No Vital Signs: 12/13/19 12:24 12/13/19 12:59 12/13/19 14:00 Temperature 98.7 F Temperature Source Oral Pulse Rate [Left Radial] 85 76 75 Respiratory Rate 16 Blood Pressure [Right Arm] 145/109 H 142/110 H 167/113 H Blood Pressure Mean [Right Arm] 121 120 131 Blood Pressure Source [Right Arm] Automatic Cuff Automatic Cuff Blood Pressure Position [Right Arm] Sitting Sitting Sitting 02 Sat by Pulse Oximetry 98 93 L 90 L Oxygen Delivery Method Room Air Room Air Room Air - Lab Data Lab results reviewed: Yes: I reviewed the patient's lab results. Lab Results 12/13/19 12:35: Group A Strep Rapid Negative 12/13/19 12:48: WBC 8.5, RBC 5.12, Hgb 16.7, Hct 48.5, MCV 94.8 H, MCH 32.7 H, MCHC 34.5, RDW 13.6, Plt Count 140 L, MPV 11.8 H, Neut % (Auto) 68.3, Lymph % (Auto) 21.9, Lumpkin % (Auto) 6.1, Eos % (Auto) 3.1, Baso % (Auto) 0.6, Neut # (Auto) 5.8, Lymph # (Auto) 1.9, Lumpkin # (Auto) 0.5, Eos # (Auto) 0.3, Baso # (Auto) 0.1 12/13/19 12:48: Sodium 142, Potassium 3.2 L, Chloride 103, Carbon Dioxide 29, Anion Gap 13.2, BUN 9, Creatinine 1.00, Estimated Creat Clear 128, Estimated GFR 78, Est GFR ( Amer) 95, Glucose 114 H, Calcium 8.9, Total Bilirubin 1.0, AST 35, ALT 31, Alkaline Phosphatase 150 H, Total Protein 7.2, Albumin 4.2, Globulin 3.0, Albumin/Globulin Ratio 1.4 12/13/19 12:48: Lactate 1.3 Result diagrams: 12/13/19 12:48 12/13/19 12:48 Orders (Tests/Meds): ORDERS Category Date Time Status SARS-CoV-2, FANNY ([place]) Stat Lab 12/13/19 14:31 Ordered Blood Culture Stat Micro 12/13/19 12:48 Received Strep Screen Confirmation Stat Micro 12/13/19 12:35 Received Medical Decision Narrative: Patient's laboratory data and his strep screen both came back negative but given the patient's history I do want to do a COVID test on this individual. Fever HPI - General Chief Complaint: Fever Stated Complaint: sore throat,fever post surgery december 03 Time Seen by Provider: 12/13/19 14:40 Mode of Arrival: Ambulatory Source of Information: Patient Limitations: No Limitations Description of Symptoms (Recalled from ER Triage Doc. by RN): to ed per pvt car with c/o sore throat and fever. pt states recent surgery 12/03 to remove lymphnodes in the throat. pt states symptoms since surgury but pain is worse today. pt states fever at home up to 100. states he called his MD today regarding symptoms and told to come to ed for eval - History of Present Illness HPI Narrative: A pleasant 54-year-old female presents the emergency department with a sore throat and a subjective fever. He states he did have a surgical procedure done 3 days prior and was intubated and they said that his throat could be sore from the intubation. However patient states that he at night his throat feels like it is on fire and he states at home he has had chills and shakes stated his temperature at home was 100. Patient denies any other acute symptoms. Patient does rate his throat pain 3 out of 10 and classi
[2019-12-13 15:37] VITALS: BP 160/105; PULSE 64; O2SAT 90
[2019-12-13 16:28] VITALS: BP 152/75; PULSE 65; RESP 16; TEMP 36.6; O2SAT 98
[2019-12-15 16:32] LABS: Covid-19 Nasal PCR Sendout UK Not Detected
== END 2019-12-13 16:29 | disposition home or self-care (01) ==
PROVIDERS: Emergency Provider Family Medicine; PCP Emergency Medicine
DX: B34.9 Viral infection, unspecified (principal); J44.9 Chronic obstructive pulmonary disease, unspecified; K21.9 Gastro-esophageal reflux disease without esophagitis; Z87.891 Personal history of nicotine dependence; Z88.0 Allergy status to penicillin; Z88.8 Allergy status to other drugs, medicaments and biological substances
CPT/HCPCS: 80053; 83605; 85025; 87040; 87430; 96374; 96375; 99283; J2405; U0003

== ENCOUNTER 2020-02-05 12:18 | Outpatient (RCR) | payer MEDICAID, SELFPAY | END 2020-05-12 14:42 | disposition home or self-care (01) | LOC: PT 12:18 | PROVIDERS: Visit Provider Internal Medicine Pulmonary Disease | DX: J44.9 Chronic obstructive pulmonary disease, unspecified (principal) ==

== ENCOUNTER → 2020-02-28 14:10 | Outpatient (CLI) | payer MEDICAID, SELFPAY ==
--- NOTE | 2020-02-28 14:14 | CT_ITS ---
PROCEDURE: CT HEAD/BRAIN WO CON CLINICAL INDICATION: NEUROPATHY The facial numbness, left arm and leg numbness weakness and slurred speech, history of lymphoma COMPARISON: CT HDWO CT HEAD W/O CONTRAST from 03/14/2017 TECHNIQUE: Axial images obtained. All CT scans at the facility use one or more dose reduction, viz: automated exposure control, ma/kV adjustment per patient size (including targeted exams where dose is matched to indication, i.e. head), or iterative reconstruction technique. FINDINGS: No midline shift, mass effect, intracranial hemorrhage, hydrocephalus, or extra-axial fluid collection is evident. The calvarium has an unremarkable appearance. No mastoid effusion. No sinus air-fluid level. IMPRESSION: No acute intracranial finding Dictated by: Tom Knox MD 02/28/2020 17:41 Tom Knox MD in [place] 02/28/2020 17:41
== END ==
PROVIDERS: PCP Emergency Medicine; Visit Provider Physician Assistant
DX: G62.9 Polyneuropathy, unspecified (principal); R20.0 Anesthesia of skin; R20.2 Paresthesia of skin
CPT/HCPCS: 70450

== ENCOUNTER → 2020-04-29 08:53 | Outpatient (CLI) | payer MEDICAID, SELFPAY ==
--- NOTE | 2020-04-29 08:55 | US_ITS ---
PROCEDURE: US SOFT TISSUE HEAD AND NECK CLINICAL INDICATION: CERVICALGIA, LYMPHADENOPATHY,CERVICAL COMPARISON: CT,PT PET/CT SKULL, BASE,THIGH from 10/11/2019 FINDINGS: Survey is performed of the left neck showing scattered small lymph nodes. The largest node is in the left submandibular region laterally measuring 12 by 5 mm. This node is deep to the sternocleidomastoid. Other smaller nodes are present along the same change. No abnormal fluid collections. IMPRESSION: Small left-sided cervical lymph nodes Dictated by: Tom Knox MD 04/29/2020 19:12 Tom Knox MD in [place] 04/29/2020 19:12
--- NOTE | 2020-04-29 08:57 | US_ITS ---
PROCEDURE: US FNA THYROID CLINICAL INDICATION: CERVICALGIA,LYMPHADENOPATHY,CERVICAL COMPARISON: No exams were available for comparison FINDINGS: Technique: Following obtaining informed consent and time-out procedure under aseptic conditions and local anesthesia with 1 percent lidocaine with ultrasound guidance, FNA was performed of a small cervical lymph node in the left neck. FNA was performed x4 with 2 specimen sent for cytology and 2 or RPMI. Oral sedation was given with 1 mg of Xanax and 7.5 mg hydrocodone p.o.. Cytology: Negative for malignancy, compatible with a benign lymph node. The lymph node sampled was the largest identified in the left neck area. The patient tolerated the procedure well without evidence of immediate complication. IMPRESSION: Uneventful ultrasound-guided fine needle aspiration of a left neck lymph node benign findings. Dictated by: Tom Knox MD 05/17/2020 11:15 Tom Knox MD in [place] 05/17/2020 11:15
== END ==
PROVIDERS: PCP Emergency Medicine; Visit Provider Otolaryngology
DX: M54.2 Cervicalgia (principal); R59.0 Localized enlarged lymph nodes
CPT/HCPCS: 10005; 76536; 76942

== ENCOUNTER → 2020-05-13 13:28 | Outpatient (CLI) | payer MEDICAID, SELFPAY ==
--- NOTE | 2020-05-13 13:28 | CT_ITS ---
PROCEDURE: CT SOFT TISSUE NECK WO CON CLINICAL HISTORY: Cervical lymphadenopathy lymphadenopathy left side of neck marked with bb has had prev u/s biopsy Hx of lymphoma COMPARISON: CT,PT PET/CT SKULL, BASE,THIGH from 10/11/2019 TECHNIQUE: Oral Contrast: None IV Contrast: None Axial images obtained with sagittal and coronal reformats. All CT scans at the facility use one or more dose reduction, viz: automated exposure control, ma/kV adjustment per patient size (including targeted exams where dose is matched to indication, i.e. head), or iterative reconstruction technique. FINDINGS: Evaluation slightly limited due to lack of IV contrast. The nasopharynx, oropharynx, uvula, hypopharynx, epiglottis, and laryngeal region have an unremarkable appearance. The thyroid gland is somewhat prominent not significantly changed. There are a few scattered nonenlarged cervical lymph nodes. These are located in the submandibular region and jugular chain. The largest node is the left submandibular area level IIa measuring approximately 10 mm similar to the previous exam. Other smaller nodes are present on both sides not significantly changed. Lung apices demonstrates COPD with centrilobular emphysema. IMPRESSION: No change small bilateral cervical lymph nodes as described above. Dictated by: Tom Knox MD 05/18/2020 09:15 Tom Knox MD in [place] 05/18/2020 09:15
--- NOTE | 2020-05-13 13:28 | CT_ITS ---
PROCEDURE: CT CHEST WO CON CLINICAL INDICATION: adenopathy hx of lung nodules COMPARISON: CT CT CHEST WO CON from 08/14/2019 CT,PT PET/CT SKULL, BASE,THIGH from 10/11/2019 TECHNIQUE: Axial images obtained with sagittal and coronal reformats. All CT scans at the facility use one or more dose reduction, viz: automated exposure control, ma/kV adjustment per patient size (including targeted exams where dose is matched to indication, i.e. head), or iterative reconstruction technique. FINDINGS: The thyroid gland is slightly prominent in may be better evaluated with thyroid ultrasound if clinically warranted. There are few small mediastinal lymph nodes. These are not significantly changed in size. Nodes are present in the pretracheal, precarinal, and aortopulmonic window region. The single largest node is in the precarinal region measuring 1.6 cm in transverse dimension not significantly changed. Small axillary nodes are also present in are unchanged. There are changes of centrilobular emphysema with COPD. Scattered areas of scarring are noted. There is mild bronchial thickening. 5 mm noncalcified nodules present in the left lower lobe image 49 series 3 unchanged. 3 mm subpleural nodule left lower lobe image 49 series 3 unchanged. 4 mm flat like nodule right upper lobe posteriorly 43 series 3 calcified 3 mm nodule right upper lobe image 39 series 3. No new nodules are identified. Mild gynecomastia. Upper abdominal images show prior cholecystectomy. There is mild splenomegaly at 14 cm. There are few small peripancreatic lymph nodes. IMPRESSION: Overall stable CT appearance of the chest. Centrilobular emphysema with COPD and scattered areas of scarring with stable small bilateral pulmonary nodular opacities and stable small lymph nodes within the mediastinum in the axilla. The largest node is in the precarinal area measuring approximately 1.6 cm overall not significantly changed. Mild splenomegaly. Mild gynecomastia. Mild prominence of the thyroid gland. Dictated by: Tom Knox MD 05/18/2020 08:57 Tom Knox MD in [facility] 05/18/2020 08:57
== END ==
PROVIDERS: PCP Emergency Medicine; Visit Provider Internal Medicine Pulmonary Disease
DX: R59.0 Localized enlarged lymph nodes (principal); R91.8 Other nonspecific abnormal finding of lung field
CPT/HCPCS: 70490; 71250

== ENCOUNTER → 2020-06-23 09:00 | Outpatient (CLI) | payer MEDICAID, SELFPAY | LOC: LAB 06-25 14:43 → LAB.DROPOF 06-26 08:36 | PROVIDERS: Visit Provider Internal Medicine Pulmonary Disease | DX: J44.9 Chronic obstructive pulmonary disease, unspecified (principal) | CPT/HCPCS: 87070; 87077; 87186; 87205 ==

== ENCOUNTER → 2020-06-25 14:32 | Outpatient (CLI) | payer MEDICAID, SELFPAY ==
[2020-06-25 16:17] LABS: T4 (Thyroxine) 11.5 ug/dl (5.53-11.0); Triiodothryronine (T3) Uptake 26 % (23.5-40.5)
[2020-06-25 16:30] LABS: Thyroid Stimulating Hormone 2.68 uIU/mL (0.465-4.68)
== END ==
LOC: LAB.DROPOF 14:33 → LAB 06-26 08:34
PROVIDERS: Physician Assistant; Visit Provider Internal Medicine Pulmonary Disease
DX: E07.9 Disorder of thyroid, unspecified (principal); R68.89 Other general symptoms and signs
CPT/HCPCS: 36415; 84436; 84443; 84479

== ENCOUNTER → 2020-07-23 13:20 | Outpatient (CLI) | payer MEDICAID, SELFPAY ==
--- NOTE | 2020-07-23 13:25 | MR_ITS ---
PROCEDURE: MR ORBITS FACE NECK WO/W CON CLINICAL INDICATION: PARESTHESIA, AND ABNORMAL THYROID IMAGING pt states hx of lymphoma. COMPARISON: CT CT SOFT TISSUE NECK WO CON from 05/13/2020 TECHNIQUE: Routine multiplanar multi echo sequences are performed without and with gadolinium enhancement. FINDINGS: There is considerable motion artifact on every sequence limiting fine detail evaluation. No obvious mass or abnormal fluid collection. There are small bilateral enhancing lymph nodes. No dominant adenopathy. No abnormal fluid collection. There is indeterminate thyroid heterogeneity with significant artifact degradation. There is a small area of enhancement in the left nasopharyngeal mucosa measuring 6 mm best detected on series 16, image 6. Direct visualization is suggested. This exam was also sent to [facility]ology for 2nd opinion. IMPRESSION: Limited evaluation of the neck due to motion artifact. Scattered small enhancing cervical nodes are present with no dominant adenopathy or abscess. There is a tiny area of enhancement in the left nasopharyngeal mucosa measuring 6 mm best detected on series 16, image 6. This is of questionable clinical significance. Direct visualization is suggested. Dictated by: Tom Knox MD 07/26/2020 10:50 Tom Knox MD in [facility] 07/26/2020 10:50
== END ==
PROVIDERS: PCP Emergency Medicine; Visit Provider Otolaryngology
DX: R93.89 Abnormal findings on diagnostic imaging of other specified body structures (principal); R20.2 Paresthesia of skin
CPT/HCPCS: 70543; A9576

== ENCOUNTER → 2021-01-11 13:18 | Outpatient (CLI) | payer MEDICAID, SELFPAY ==
[2021-01-11 13:56] LABS: Chloride 106 mmol/L (98-107); Potassium 3.5 mmoL/L (3.5-5.1); Sodium 141 mmol/L (136-145)
[2021-01-11 13:58] LABS: Alanine Aminotransferase 28 U/L (12-78); Aspartate Amino Transferase 31 U/L (17-59); Blood Urea Nitrogen 6 mg/dl (9-20); Estimated Glomerular Filt Rate 78 ml/min (>60); GFR (African American) 95 ML/MIN (>60)
[2021-01-11 13:59] LABS: Albumin Level 4.1 g/dl (3.5-5.0); Albumin/Globulin Ratio 1.5 (1.1-1.8); Alkaline Phosphatase 133 U/L (38-126); Anion Gap 13.5 mEq/L (5-15); Bilirubin,Total 0.9 mg/dl (0.2-1.3); Calcium 8.8 mg/dl (8.4-10.2); Carbon Dioxide 25 mmol/L (22.0-30.0); Globulin 2.7 g/dL (1.3-3.2); Glucose 102 mg/dl (74-100); Total Protein,Serum 6.8 g/dl (6.3-8.2)
== END ==
PROVIDERS: PCP Emergency Medicine; Visit Provider Physician Assistant
DX: I73.9 Peripheral vascular disease, unspecified (principal); I25.10 Atherosclerotic heart disease of native coronary artery without angina pectoris; I10 Essential (primary) hypertension; F17.200 Nicotine dependence, unspecified, uncomplicated; T50.2X5A Adverse effect of carbonic-anhydrase inhibitors, benzothiadiazides and other diuretics, initial encounter
CPT/HCPCS: 36415; 80053; 93970

== ENCOUNTER → 2021-01-21 12:22 | Outpatient (CLI) | payer MEDICAID, SELFPAY ==
--- NOTE | 2021-01-21 13:25 | CA_ITS ---
APPROVED REPORT Bilateral Lower Extremity Venous Study for DVT. Senior Web Architect: Wilda Bonilla RVT Indications Lower Extremity Pain: Bilateral Lower Extremity Edema: Bilateral History of Smoking bilateral leg edema Risk Factors History of Smoking Vein Imaging CFV (R): compressive, spontaneous, phasic, augmentation FEM (R): compressive, spontaneous, phasic, augmentation POP (R): compressive, spontaneous, phasic, augmentation PTV (R): Compressible GSV (R): Compressible Peroneals (R):Compressible GAS (R): Compressible CFV (L): compressive, spontaneous, phasic, augmentation FEM (L): compressive, spontaneous, phasic, augmentation POP (L): compressive, spontaneous, phasic, augmentation PTV (L): Compressible GSV (L): Compressible Peroneals (L):Compressible GAS (L): Compressible Findings Study suggests no evidence of DVT or SVT of the bilateral lower extremities. Conclusion Study suggests no evidence of DVT or SVT of the bilateral lower extremities. Electronically signed by : Tom Knox MD 01/21/2021 16:27:18
== END ==
PROVIDERS: PCP Emergency Medicine; Visit Provider Physician Assistant
DX: R60.0 Localized edema (principal); I70.213 Atherosclerosis of native arteries of extremities with intermittent claudication, bilateral legs
CPT/HCPCS: 93970

== ENCOUNTER → 2021-03-16 14:43 | Outpatient (CLI) | payer MEDICAID, SELFPAY ==
[2021-03-16 15:20] LABS: Chloride 105 mmol/L (98-107); Sodium 140 mmol/L (136-145)
[2021-03-16 15:21] LABS: Potassium 4.2 mmoL/L (3.5-5.1)
[2021-03-16 15:23] LABS: Anion Gap 13.2 mEq/L (5-15); Blood Urea Nitrogen 7 mg/dl (9-20); Carbon Dioxide 26 mmol/L (22.0-30.0); Estimated Glomerular Filt Rate 88 ml/min (>60); GFR (African American) 107 ML/MIN (>60)
[2021-03-16 15:24] LABS: Calcium 9.2 mg/dl (8.4-10.2); Glucose 94 mg/dl (74-100)
== END ==
PROVIDERS: Visit Provider Physician Assistant
DX: R07.9 Chest pain, unspecified (principal); I25.118 Atherosclerotic heart disease of native coronary artery with other forms of angina pectoris; I10 Essential (primary) hypertension; R94.31 Abnormal electrocardiogram [ECG] [EKG]; F17.200 Nicotine dependence, unspecified, uncomplicated
CPT/HCPCS: 36415; 80048

== ENCOUNTER → 2021-04-02 14:45 | Outpatient (CLI) | payer MEDICAID, SELFPAY ==
--- NOTE | 2021-04-02 14:46 | CA_ITS ---
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: Ana Hall RT(R) Ht: 6 ft 0 in Wt: 247lbs BSA: 2.33 BP: 160/110 mmHg Indications: cp, copd, smoker, palpitations, fatigue, HTN, SOB, CAD, abn EKG, CA, GERD 2D Dimensions LVOT 2.01 cm (M/F) 1.5-2.5 M-Mode Dimensions RVDd 2.99 cm (0.9-2.6) LA Diam 2.69 cm (1.9-4.0) LVDd 4.86 cm (3.5-5.7) Ao Diam 2.78 cm (2.0-3.7) LVDs 4.10 cm (3.5-5.7) IVSd 0.98 cm (0.6-1.1) PWd 1.07 cm (0.6-1.1) EF (Teich) 33.00% FS 15.60% EDV (Teich) 110.70 mL ESV (Teich) 74.20 mL LV Diastology E Decel Time 180.00 (160-240 msec) E/A Ratio 0.8 MED E' 9.80 (< 7 cm/sec) E'/MED E' Ratio 7.13 (>14) LAT E' 9.20 (<10 cm/sec) E/LAT E' Ratio 7.60 (>14) Mitral Valve MV E Max Aric. 70.00 (40-130 cm/s) MV A Velocity 87.00 (40-130 cm/s) E/A Ratio 0.81 MV Decel. Time 180.00 (160-240 ms) MV PHT 53.00 ms Left Ventricle Technically difficult study because of the patient factors and poor acoustic windows. Left atrium is mildly enlarged, left ventricle is normal size, mild concentric left ventricular hypertrophy, visually estimated ejection fraction 55% with no regional wall motion abnormality, grade 1 diastolic dysfunction seen without tissue Doppler evidence of raise left atrial pressure. Right Ventricle Right atrium and right ventricle are mildly enlarged with normal contractility. Aortic Valve Aortic valve is minimally thickened and fibrosed, there is no aortic stenosis or aortic insufficiency. Mitral Valve Mitral valve grossly normal, there is trace mitral regurgitation. Tricuspid Valve Tricuspid valve grossly normal, there is trace tricuspid regurgitation, tricuspid regurgitation jet velocity is inadequate for calculation of the right ventricular systolic pressure. Pulmonic Valve Pulmonic valve is poorly visualized. Great Vessels Aortic root is normal size. Inferior vena cava is normal size with normal inspiratory collapse. Pericardium No significant pericardial effusion noted. Conclusion 1. Mild biatrial enlargement, normal left ventricular size, mild concentric left ventricular hypertrophy, visually estimated ejection fraction 55% with no regional wall motion abnormality, grade 1 diastolic dysfunction seen without tissue Doppler evidence of raise left atrial pressure. 2. Mildly enlarged right ventricle with normal contractility. 3. Trace mitral and tricuspid regurgitation. 4. No significant pericardial effusion noted. 5. Inferior vena cava normal size with normal inspiratory collapse. Electronically signed by : Miguel Warren MD 04/05/2021 19:28:58
--- NOTE | 2021-04-02 14:55 | CA_ITS ---
APPROVED REPORT Chief Of Anesthesiology: Wilda Bonilla RVT Study Quality: Good Indications: HTN, CAD Risk Factors Hypertension Smoking Renal Artery Doppler Origin (R) 137.2/ cm/sec Proximal (R) 138.7/ cm/sec Mid (R) 118.7/ cm/sec Distal (R) 72.2/ cm/sec Renal Aorta Ratio (R) 1.48 Segmental A. (R) 54.9/28.7 cm/sec RI: 0.47 Segmental A. Sup (R) 54.9/28.7 cm/sec Segmental A. Mid (R) 44.9/21.2 cm/sec Segmental A. Inf (R) 42.4/20.0 cm/sec Origin (L) 133.2/ cm/sec Proximal (L) 105.2/ cm/sec Mid (L) 141.6/ cm/sec Distal (L) 130.0/ cm/sec Renal Aorta Ratio (L) 1.51 Segmental A. (L) 67.2/24.5 cm/sec RI: 0.63 Segmental A. Sup (L) 42.6/20.7 cm/sec Segmental A. Mid (L) 56.8/23.3 cm/sec Segmental A. Inf (L) 67.2/24.5 cm/sec Renal Measurements Kidney Size (R) 11.8x7.4 cm Cortical Thickness (R) 1.5 cm Kidney Size (L) 10.3x7.2 cm Cortical Thickness (L) 2.0 cm Findings Study suggests no evidence of stenosis of the bilateral renal arteries. Conclusion Study suggests no evidence of stenosis of the bilateral renal arteries. Electronically signed by : Tom Knox MD 04/05/2021 15:25:08
== END ==
PROVIDERS: PCP Emergency Medicine; Visit Provider Physician Assistant
DX: I25.10 Atherosclerotic heart disease of native coronary artery without angina pectoris (principal); I10 Essential (primary) hypertension
CPT/HCPCS: 93306; 93976

== ENCOUNTER → 2021-08-10 14:45 | Outpatient (CLI) | payer MEDICAID, SELFPAY ==
--- NOTE | 2021-08-10 14:52 | MR_ITS ---
FINAL REPORT CLINICAL HISTORY: PARESTHESIA OF LT UPPER EXTREMITY. numbness and tingling bilateral hand and arms. headache. no recent injury or trauma. numbness on lt side of neck x3yrs. FINDINGS: Multi planar MR imaging was obtained of the cervical spine. There is abnormal decreased signal throughout the cervical discs. The vertebrae are of normal height. There is no malalignment. The cervical cord demonstrates normal signal and configuration. C2-C3: There is no evidence of significant disc bulge or protrusion. There is no significant facet hypertrophy. C3-C4: There is mild diffuse disc bulge. There is a left posterior lateral disc protrusion resulting in mild to moderate left neural foraminal narrowing. C4-C5: There is no evidence of significant disc bulge or protrusion. There is no significant facet hypertrophy. C5-C6: There is no evidence of significant disc bulge or protrusion. There is no significant facet hypertrophy. C6-C7: There is no evidence of significant disc bulge or protrusion. There is no significant facet hypertrophy. C7-T1: There is no evidence of significant disc bulge or protrusion. There is no significant facet hypertrophy. IMPRESSION: Left posterior lateral disc protrusion at C3-4 with significant compromise of the left C3-4 neural foramen. Reviewed, Interpreted and Dictated by Henry Silva MD Transcribed by Lynn Childers Authenticated by Henry Silva MD on 08/10/2021 05:20:02 PM [facility]
== END ==
PROVIDERS: PCP Nurse Practitioner Family; Visit Provider Physical Medicine & Rehabilitation
DX: R20.2 Paresthesia of skin (principal)
CPT/HCPCS: 72141; 76376

== ENCOUNTER → 2021-10-15 12:22 | Outpatient (CLI) | payer MEDICAID, SELFPAY ==
[2021-10-15 13:04] LABS: Basophils # 0.1 K/mm3 (0-0.2); Basophils % 1.3 % (0.1-2.0); Eosinophils # 0.3 K/mm3 (0.0-0.4); Eosinophils % 3.7 % (0.1-12.0); Hematocrit 47.9 % (42.0-52.0); Hemoglobin 16.8 g/dL (14.1-18.0); Lymphocytes # 2.2 K/mm3 (0.7-4.5); Lymphocytes % 30.6 % (10-50); Mean Corpuscular HGB Conc 35.1 g/dL (31.8-35.4); Mean Corpuscular Volume 91.3 fl (80-94); Mean Platelet Volume 10.2 fl (7.4-10.4); Monocytes # 0.6 K/mm3 (0.1-1.0); Monocytes % 8.3 % (1.7-9.3); Platelet Count 134 K/mm3 (142-424); Red Blood Count 5.24 M/mm3 (4.60-6.20); Red Cell Distribution Width 12.9 % (11.5-17.5); White Blood Count 7.2 K/mm3 (4.8-10.8)
[2021-10-15 13:39] LABS: Chloride 107 mmol/L (98-107); Potassium 3.9 mmoL/L (3.5-5.1); Sodium 140 mmol/L (136-145)
[2021-10-15 13:41] LABS: Alanine Aminotransferase 30 U/L (12-78); Alkaline Phosphatase 125 U/L (38-126); Anion Gap 11.9 mEq/L (5-15); Aspartate Amino Transferase 31 U/L (17-59); Bilirubin,Direct 0.1 mg/dl (0.0-0.4); Bilirubin,Indirect 0.6 mg/dL (0.0-0.9); Bilirubin,Total 0.7 mg/dl (0.2-1.3); Bilirubin,Unconjugated 0.6 mg/dL (0.0-1.1); Blood Urea Nitrogen 7 mg/dl (9-20); Carbon Dioxide 25 mmol/L (22.0-30.0); Estimated Glomerular Filt Rate 78 ml/min (>60); GFR (African American) 95 ML/MIN (>60)
[2021-10-15 13:42] LABS: Albumin Level 4.2 g/dl (3.5-5.0); Calcium 9.2 mg/dl (8.4-10.2); Chol/HDL Ratio 4.7 (1-3.5); Cholesterol 142 mg/dl (140-200); Glucose 98 mg/dl (74-100); HDL Cholesterol 30 mg/dl (40-60); Magnesium 1.7 mg/dl (1.6-2.3); Total Protein,Serum 6.5 g/dl (6.3-8.2); Triglycerides 111 mg/dl (30-150); VLDL Cholesterol 22 mg/dL (0-40)
[2021-10-15 13:58] LABS: Direct LDL Cholesterol 98.04 mg/dL (100-129)
[2021-10-15 13:59] LABS: Free T4 (Free Thyroxine) 1.11 ng/dl (0.78-2.19)
[2021-10-15 14:14] LABS: Thyroid Stimulating Hormone 2.28 uIU/mL (0.465-4.68)
== END ==
PROVIDERS: Visit Provider Physician Assistant
DX: I25.10 Atherosclerotic heart disease of native coronary artery without angina pectoris (principal); I10 Essential (primary) hypertension; F17.200 Nicotine dependence, unspecified, uncomplicated; R94.31 Abnormal electrocardiogram [ECG] [EKG]
CPT/HCPCS: 36415; 80048; 80061; 80076; 83735; 84439; 84443; 85025

== ENCOUNTER → 2021-10-27 13:14 | Outpatient (CLI) | payer MEDICAID, SELFPAY ==
--- NOTE | 2021-10-27 13:14 | US_ITS ---
FINAL REPORT CLINICAL HISTORY: thyroid nodule FINDINGS: Sonographic images of the thyroid were obtained. The thyroid is enlarged measuring 2.4 x 5.0 x 2.5 cm. Blood flow is noted. There are 2 nodules on the right. There is a solid, hypoechoic nodule on the right measuring 3 x 3 x 2 mm consistent with TI-RADS category 4. There is a 2nd, solid hypoechoic nodule measuring 4 x 3 x 3 mm consistent with TI-RADS category 4. No dominant mass or nodule is identified. The isthmus is normal. IMPRESSION: Right thyroid lobe nodules consistent with TI-RADS category 4. No follow-up is required. Reviewed, Interpreted and Dictated by Luis Carroll III, MD Transcribed by Kitty Alejandra Authenticated and [facility]
== END ==
PROVIDERS: PCP Nurse Practitioner Family; Visit Provider Otolaryngology
DX: E04.1 Nontoxic single thyroid nodule (principal)
CPT/HCPCS: 76536

== ENCOUNTER → 2022-02-04 14:22 | Outpatient (CLI) | payer MEDICAID, SELFPAY ==
--- NOTE | 2022-02-04 14:36 | XR_ITS ---
FINAL REPORT CLINICAL HISTORY: Left foot pain FINDINGS: LEFT FOOT 3 views were obtained. There is no acute fracture or dislocation. The joint spaces are intact. There is no soft tissue abnormality. IMPRESSION: No acute bony abnormality. Reviewed, Interpreted and Dictated by Luis Carroll III, MD Transcribed by Lynn Childers Authenticated and [facility]
== END ==
PROVIDERS: PCP Emergency Medicine; Visit Provider Podiatrist
DX: M79.672 Pain in left foot (principal)
CPT/HCPCS: 73630

== ENCOUNTER → 2022-03-11 13:13 | Outpatient (CLI) | payer MEDICAID, SELFPAY ==
--- NOTE | 2022-03-11 13:13 | CT_ITS ---
FINAL REPORT TECHNIQUE: Thin section axial CT images of the left ankle 3D reformatted images, coronal and sagittal reformats were performed. This study was performed with techniques to keep radiation doses as low as reasonably achievable (ALARA). Individualized dose reduction techniques using automated exposure control or adjustment of mA and/or kV according to the patient''s size were employed. CLINICAL HISTORY: ankle pain FINDINGS: There are no fractures. There are no masses or fluid collections. There are no soft tissue abnormalities. There are mild degenerative changes. IMPRESSION: Mild degenerative changes without acute bony abnormality. Reviewed, Interpreted and Dictated by Luis Carroll III, MD Transcribed by Dahiana Gaston Authenticated and [facility]
== END ==
PROVIDERS: PCP Emergency Medicine; Visit Provider Podiatrist
DX: M25.572 Pain in left ankle and joints of left foot (principal); M79.672 Pain in left foot
CPT/HCPCS: 73700

== ENCOUNTER → 2022-04-06 13:13 | Outpatient (CLI) | payer MEDICAID, SELFPAY ==
--- NOTE | 2022-04-06 13:13 | MR_ITS ---
FINAL REPORT CLINICAL HISTORY: ankle pain left ankle pain after fall x 3 years aog discoloration swelling and numbness FINDINGS: Multiplanar MR imaging of the left ankle was performed without contrast. The bony structures are intact without evidence of fracture, bone bruise or marrow edema. There is mild subcutaneous soft tissue edema about the ankle. No osteochondral lesion is identified. The ligaments are intact without evidence of injury. The flexor and extensor tendons are intact. The posterior plantar aponeurosis is intact. No significant joint effusion is seen. The musculature is intact. There is no evidence of soft tissue mass or cyst. IMPRESSION: Mild subcutaneous soft tissue edema about the ankle. Reviewed, Interpreted and Dictated by Henry Silva MD Transcribed by Kitty Alejandra Authenticated and [facility]
== END ==
PROVIDERS: PCP Emergency Medicine; Visit Provider Podiatrist
DX: M25.572 Pain in left ankle and joints of left foot (principal)
CPT/HCPCS: 73721

== ENCOUNTER → 2022-04-29 10:29 | Outpatient (CLI) | payer MEDICAID, SELFPAY ==
--- NOTE | 2022-04-29 10:32 | US_ITS ---
FINAL REPORT CLINICAL HISTORY: discolored toes neuropathic pain,HTN,EX SMOKER,HX HI, PRIOR INJURY LT FOOT/ANKLE FINDINGS: COMPLETE ANKLE/BRACHIAL INDICES BILATERAL Complete ankle brachial indices were obtained. The right BENITO is 1.2. The left BENITO is 1.2. IMPRESSION: ABIs are within normal limits bilaterally. Reviewed, Interpreted and Dictated by Luis Carroll III, MD Transcribed by Kitty Alejandra Authenticated and [facility]
== END ==
PROVIDERS: PCP Emergency Medicine; Visit Provider Podiatrist
DX: R09.89 Other specified symptoms and signs involving the circulatory and respiratory systems (principal); G57.93 Unspecified mononeuropathy of bilateral lower limbs; G60.9 Hereditary and idiopathic neuropathy, unspecified
CPT/HCPCS: 93923

== ENCOUNTER → 2022-05-24 12:48 | Outpatient (CLI) | payer MEDICAID, SELFPAY ==
--- NOTE | 2022-05-24 12:48 | US_ITS ---
FINAL REPORT CLINICAL HISTORY: hx nodule COMPARISON: October 27, 2021 FINDINGS: THYROID ULTRASOUND Sonographic images of the thyroid was obtained. The right lobe of the thyroid measures 5.8 x 3.0 x 2.4 cm. The left lobe of the thyroid measures 5.8 x 2.4 x 2.0 cm. The isthmus measures 9 mm. Redemonstration of small hypoechoic nodules in the right lobe measuring 3 and 4 mm, stable. There is a probable cyst in the thyroid isthmus. No lesions within the left lobe. There is moderate thyromegaly, diffusely, which is slightly worse from prior exam. IMPRESSION: Progressive thyromegaly. Benign right thyroid nodules, stable. TI-RADS category 4. No additional follow-up recommended given size and morphology of the nodules. Reviewed, Interpreted and Dictated by Shawn Galan MD Transcribed by Ale Cummings Authenticated and [facility]
== END ==
PROVIDERS: PCP Emergency Medicine; Visit Provider Otolaryngology
DX: E04.1 Nontoxic single thyroid nodule (principal); J39.2 Other diseases of pharynx
CPT/HCPCS: 76536

== ENCOUNTER → 2022-07-06 08:37 | Outpatient (CLI) | payer MEDICAID, SELFPAY ==
--- NOTE | 2022-07-06 08:42 | NM_ITS ---
FINAL REPORT CLINICAL HISTORY: LT ANKLE PAIN 9:00AM 26.3 MCI TC MDP FINDINGS: The patient was injected with 26.3 mCi of technetium 99 M MDP. Limited images of the left ankle were obtained in 3 phase. Compared to MRI dated 04/06/2022. There is symmetric angiographic phase. The immediate blood pool images show symmetric uptake within the right mid foot. On the delayed images, there is symmetric uptake within the hindfoot and midfoot between the right and left lower extremities, nonspecific. IMPRESSION: No convincing osteomyelitis. Nonspecific soft tissue uptake the recommend correlation with plain films. Reviewed, Interpreted and Dictated by Soni Tamayo MD Transcribed by Kitty Alejandra Authenticated and [facility]
== END ==
PROVIDERS: PCP Emergency Medicine; Visit Provider Orthopaedic Surgery Adult Reconstructive Orthopaedic Surgery
DX: M25.572 Pain in left ankle and joints of left foot (principal)
CPT/HCPCS: 78315; A9503

== ENCOUNTER → 2022-08-08 10:31 | Outpatient (POV) | payer MEDICAID, SELFPAY ==
[2022-08-08 11:00] VITALS: BP 178/100; PULSE 79; RESP 18; O2SAT 98; BMI 31.4
--- NOTE | 2022-08-08 11:26 | EXP.PAIN.OV ---
HPI Data of Consult Patient: new to practice Consult date: 08/08/22 Requesting Physician: Vaishali Borja APRN Primary Care Provider: Antwan Esparza MD Consult Narrative Reason for consult: Left foot/ankle pain, neuropathy History of present illness: Mr. Kauffman is a 56 year old male who presents today as a new patient. He is a referral from Dr. Damien Hauser office. He rates his pain a 6 out of 10. He states his pain is all in his left foot and ankle that is related to an injury that happened approximately 4 years ago. He states he fell off a ladder and believes this caused his issues and it has progressively worsened since. Patient states that approximately 8 months ago his pain did worsen with throbbing and popping sensations. He does state that it is worse with increased activity or weightbearing exercises. He does state that this extremity does have color change as well as frequent edema and cool to touch in comparison to his right. Patient states he has been to multiple orthopedic doctors as well as Dr. Regalado here at [facility] who all were not recommending surgical intervention. Patient was placed in a boot that does help provide support and stabilization. He states he has a history of cardiac and stomach issues and cannot tolerate any NSAIDs. Patient states that he tries to stay away from Tylenol products as well. Patient has tried multiple [id number] creams and sprays including lidocaine and diclofenac with minimal improvement. Patient has also tried heat and ice and an old remedy of vinegar with a brown paper back with no additional relief. Patient does state that he went to neuroscience [place] and was told he was high risk due to a pulmonary issue. 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 Patient denies any physical therapy or chiropractor history in the recent past. He does state that Dr. Hauser office was recommending to try a left ankle nerve block. Patient denies see a pain management group at however they do not do these type of blocks. He does state that he has prescribed pain medication and muscle relaxer from this facility. At this time his [place] report is still under manual review. CC: Vaishali Boraj APRN [facility] Disclaimer: The information contained in this section may have been updated after the patient was seen, as this information can be updated by other users. Medical History Asthma CAD (coronary artery disease) Cancer Chest pain COPD (chronic obstructive pulmonary disease) Dysphagia GERD (gastroesophageal reflux disease) HTN (hypertension) Palpitations Surgical History History of arthroscopy of both knees History of arthroscopy of right shoulder History of cholecystectomy Family History Other Coronary artery disease Heart attack Social History (Updated 08/08/22 @ 11:01 by Marley Carlisle RN) Smoking Status: Former smoker alcohol intake: never counseling provided: none substance use type: denies use current occupational status: other Travel in the last 8 weeks: None household members: other housing: other caffeine: No Review of Systems Review of Systems Review of systems:: pertinent systems reviewed and negative unless documented below Review of systems (narrative): Review of Systems: General: No recent weight changes, no fever, no sleep disturbances Respiratory: No cough, no shortness of air, no recurring pulmonary infections Cardiovascular/peripheral vascular: No chest pain, no palpitations, no edema, no shortness of breath Gastrointestinal: No new onset incontinence, normal bowel movements reported Genitourinary: No new onset incontinence Musculoskeletal: Left foot/ankle pain Psychiatric: [Normal mood/affect] Neurological: [Roberto
== END ==
LOC: SC.PAIN 10:32
PROVIDERS: PCP Emergency Medicine; Visit Provider Nurse Practitioner Family
DX: M25.572 Pain in left ankle and joints of left foot; M79.672 Pain in left foot; G90.522 Complex regional pain syndrome I of left lower limb
CPT/HCPCS: 99202; G0463

== ENCOUNTER 2022-08-16 13:02 | Day surgery (SDC) | payer MEDICAID, SELFPAY ==
[2022-08-16 13:22] VITALS: BP 178/114; PULSE 74; RESP 16; TEMP 36.6; O2SAT 95; BMI 31.4
[2022-08-16 13:35] VITALS: BP 155/99; PULSE 69; RESP 18; O2SAT 97
[2022-08-16 13:36] VITALS: BP 155/99; PULSE 69; RESP 18; O2SAT 97
[2022-08-16 13:40] VITALS: BP 158/100; PULSE 63; RESP 18; O2SAT 95
--- NOTE | 2022-08-16 13:51 | EXP.PAIN.PRO ---
Procedure Date: 08/16/22 Time: 13:30 Anesthesiologist:: Taj Fernandez CRNA Complications:: None Pre-procedure Diagnosis:: CRPS left ankle/foot Post-procedure Diagnosis:: Same Indications for Procedure:: Very pleasant 56-year-old male who comes our clinic today for sympathetic nerve block left L4 V nerve. Patient has chronic left foot/ankle pain secondary to a fall that happened 4 years ago. Patient has anaphylactic side effects from steroids in the past. Procedure Details:: Details of the procedure were explained to the patient. The patient was taken the procedure room placed in the prone position. The area of the lumbar spine was cleansed using chlorhexidine as a cleansing solution. At this time using fluoroscopy guidance markers were placed on the left lateral border of the L4 vertebral body. The skin and subcutaneous tissue was anesthetized using 1% lidocaine and 25-gauge needle. At this time using a 22-gauge 3-1/2 inch spinal needle the right upper one third of the L4-5 foramen was accessed. Needle positions were confirmed and a lateral view using fluoroscopy and contrast dye. At this time 4 cc of 1% lidocaine was injected at each level after negative aspiration. [place] were removed. Band-Aid applied. Patient tolerated the procedure without difficulty. There are no complications. Plan and Disposition:: Patient was discharged without incident
== END 2022-08-16 13:40 | disposition home or self-care (01) ==
PROVIDERS: PCP Emergency Medicine; Visit Provider Nurse Anesthetist, Certified Registered
DX: G90.522 Complex regional pain syndrome I of left lower limb (principal)
CPT/HCPCS: 64520; 77003

== ENCOUNTER → 2022-10-07 14:17 | Outpatient (CLI) | payer MEDICAID, SELFPAY ==
[2022-10-07 15:08] LABS: Basophils # 0.1 K/mm3 (0-0.2); Basophils % 1.3 % (0.1-2.0); Eosinophils # 0.3 K/mm3 (0.0-0.4); Eosinophils % 3.5 % (0.1-12.0); Hematocrit 50.4 % (42.0-52.0); Hemoglobin 16.5 g/dL (14.1-18.0); Lactate Dehydrogenase 215 U/L (313-618); Lymphocytes # 2.5 K/mm3 (0.7-4.5); Lymphocytes % 31.3 % (10-50); Mean Corpuscular HGB Conc 32.8 g/dL (31.8-35.4); Mean Corpuscular Hemoglobin 31.9 pg (27.0-31.2); Mean Corpuscular Volume 97.2 fl (80-94); Mean Platelet Volume 11.2 fl (7.4-10.4); Monocytes # 0.5 K/mm3 (0.1-1.0); Neutrophils # 4.6 K/mm3 (1.8-7.8); Neutrophils % 57.9 % (37.0-80.0); Platelet Count 146 K/mm3 (142-424); Red Blood Count 5.18 M/mm3 (4.60-6.20); Red Cell Distribution Width 13.6 % (11.5-17.5); White Blood Count 7.9 K/mm3 (4.8-10.8)
[2022-10-07 15:14] LABS: C-Reactive Protein 5.2 mg/L (0-4)
== END ==
PROVIDERS: PCP Emergency Medicine; Visit Provider Internal Medicine Medical Oncology
DX: E04.1 Nontoxic single thyroid nodule (principal)
CPT/HCPCS: 83615; 85025; 86140

== ENCOUNTER → 2022-12-09 14:25 | Outpatient (CLI) | payer MEDICAID, SELFPAY ==
[2022-12-09 15:01] LABS: Anion Gap 7.8 mEq/L (5-15); Blood Urea Nitrogen 11 mg/dl (9-20); Calcium 8.8 mg/dl (8.4-10.2); Carbon Dioxide 33 mmol/L (22.0-30.0); Chloride 104 mmol/L (98-107); Estimated Glomerular Filt Rate 57 ml/min (>60); GFR (African American) 69 ML/MIN (>60); Glucose 99 mg/dl (74-100); Potassium 3.8 mmoL/L (3.5-5.1); Sodium 141 mmol/L (136-145)
== END ==
PROVIDERS: PCP Emergency Medicine; Visit Provider Internal Medicine Cardiovascular Disease
DX: R06.02 Shortness of breath (principal); I50.20 Unspecified systolic (congestive) heart failure; R60.0 Localized edema
CPT/HCPCS: 36415; 80048

== ENCOUNTER → 2023-01-25 14:23 | Outpatient (CLI) | payer MEDICAID, SELFPAY ==
--- NOTE | 2023-01-25 14:27 | CT_ITS ---
FINAL REPORT TECHNIQUE: Axial images were obtained from the lung apex to the mid abdomen by computed tomography. Coronal and sagittal reformatted images were obtained. This study was performed with techniques to keep radiation doses as low as reasonably achievable, (ALARA). Individualized dose reduction techniques using automated exposure control or adjustment of mA and/or kV according to the patient's size were employed. CLINICAL HISTORY: MULTIPLE LUNG NODULES COMPARISON: 05/13/2020 FINDINGS: There is no axillary adenopathy. There are multiple small mediastinal nodes which are unchanged since the prior CT of 2019. Mild changes of emphysema are again noted. There is a small 5 mm posterior left lower lobe nodule seen on image #49, unchanged since the prior CT of 2019. Several other small nodules are again noted, also unchanged. No new masses or nodules are identified. Heart size is normal. There is no pericardial or pleural effusion. The patient has undergone a prior cholecystectomy. IMPRESSION: No new masses or nodules are identified since the prior CT of April 2020. Mild changes of emphysema. Reviewed, Interpreted and Dictated by Luis Carroll III, MD Transcribed by Barby Lund Authenticated and [facility]
== END ==
PROVIDERS: PCP Nurse Practitioner Family; Visit Provider Internal Medicine Medical Oncology
DX: R91.8 Other nonspecific abnormal finding of lung field (principal)
CPT/HCPCS: 71250

== ENCOUNTER → 2023-04-03 14:43 | Outpatient (CLI) | payer MEDICAID, SELFPAY ==
[2023-04-03 16:15] LABS: Free T4 (Free Thyroxine) 1.19 ng/dl (0.78-2.19)
[2023-04-03 16:29] LABS: Thyroid Stimulating Hormone 2.16 uIU/mL (0.465-4.68)
== END ==
PROVIDERS: PCP Emergency Medicine; Visit Provider Specialist
DX: E04.9 Nontoxic goiter, unspecified (principal)
CPT/HCPCS: 36415; 84439; 84443

== ENCOUNTER → 2023-05-09 11:34 | Outpatient (CLI) | payer MEDICAID, SELFPAY ==
--- NOTE | 2023-05-09 11:40 | XR_ITS ---
FINAL REPORT CLINICAL HISTORY: L Elbow pain, sx 2018 to release nerve. Anterior/posterior pain and swelling in left elbow. Numbness in left hand. COMPARISON: None FINDINGS: AP, oblique, and lateral views of the right elbow were obtained. There is no prior exam for comparison. There is no acute fracture or dislocation. Joint space is preserved. There is no joint effusion or other soft tissue abnormality. IMPRESSION: No acute osseous abnormality of the right elbow. Reviewed, Interpreted and Dictated by Henry Silva MD Transcribed by Barby Lund Authenticated and [facility]
== END ==
PROVIDERS: PCP Nurse Practitioner Family; Visit Provider Nurse Practitioner Family
DX: M25.522 Pain in left elbow (principal)
CPT/HCPCS: 73080

== ENCOUNTER 2023-05-25 13:23 | Outpatient (CLI) | payer MEDICAID, SELFPAY | END 2023-05-25 23:59 | LOC: RAD 13:23 | PROVIDERS: PCP Nurse Practitioner Family; Visit Provider Orthopaedic Surgery | DX: M25.522 Pain in left elbow (principal) ==

== ENCOUNTER 2023-06-23 14:39 | Outpatient (CLI) | payer MEDICAID, SELFPAY ==
--- NOTE | 2023-06-23 14:39 | MR_ITS ---
FINAL REPORT TECHNIQUE: Multiplanar MR without contrast CLINICAL HISTORY: Lt Elbow pain UNABLE TO STRAIGHTEN ELBOW BEST IMAGES POSSIBLE DUE TO PATIENT BEING IN PAIN AND MOVING , 2ND ATTEMPT FOR MRI , PT ALSO HAD TO GET UP DURING SCAN , WAS DONE AFTER 2ND SAG COMPARISON: None FINDINGS: There is marked overall degradation of image quality secondary to motion artifact, as the patient had difficulty with pain during the examination. There is bone marrow edema in the lateral epicondyle. There is significant edema within and surrounding the common extensor tendon at the lateral epicondyle attachment, consistent with severe lateral epicondylitis with partial tears. A physiologic joint effusion is present. There is no osteochondral defect. Medial and lateral collateral ligaments are intact. Biceps and triceps tendons are unremarkable. Flexor tendons have a normal appearance. IMPRESSION: Bone marrow edema in the lateral epicondyle, and significant edema in and around the extensor tendons, consistent with severe lateral epicondylitis and partial tears of the common extensor tendon. Would recommend a follow-up exam in several months for further evaluation. Reviewed, Interpreted and Dictated by Shawn Galan MD Transcribed by Barby Lund Authenticated and [facility]
== END 2023-06-23 23:59 ==
LOC: RAD 14:39
PROVIDERS: PCP Nurse Practitioner Family; Visit Provider Orthopaedic Surgery
DX: M25.522 Pain in left elbow (principal)
CPT/HCPCS: 73221

== ENCOUNTER 2023-07-19 09:59 | Day surgery (SDC) | payer MEDICAID, SELFPAY ==
[2023-07-17 09:22] VITALS: BMI 31.4
[2023-07-19] VITALS (10 sets, daily range): BP systolic 106–174; BP diastolic 52–106; PULSE 54–95; RESP 12–18; TEMP 36.2–36.6; O2SAT 90–99
--- NOTE | 2023-07-19 10:08 | XR_ITS ---
FINAL REPORT CLINICAL HISTORY: preop COMPARISON: 07/30/2018 FINDINGS: A single PA view of the chest was obtained. The cardiac and mediastinal silhouettes are within normal limits. The lungs are clear. There is no effusion or pneumothorax. IMPRESSION: No radiographic evidence of acute cardiac or pulmonary disease on this single view of the chest. Reviewed, Interpreted and Dictated by Soni Tamayo MD Transcribed by Kitty Alejandra Authenticated and [facility]
[2023-07-19] MEDS: LACTATED RINGERS 1000ML 1,000 ML 25 ML IV (10:23)
--- NOTE | 2023-07-19 10:26 | ECG_ITS ---
APPROVED REPORT Exam: Resting ECG HR:66 bpm ECG Measurements Heart Rate 66 AXES HI 177 P 11 QRSd 107 QRS -22 QT 425 T 56 QTc 439 Conclusion SINUS RHYTHM WITH OCCASIONAL SUPRAVENTRICULAR PREMATURE COMPLEXES BORDERLINE LEFT AXIS DEVIATION [QRS AXIS < -20] BORDERLINE ECG UNCONFIRMED REPORT Electronically signed by : Pedro Carmen MD 07/20/2023 20:04:16
[2023-07-19 11:35] LABS: Chloride 105 mmol/L (98-107)
[2023-07-19] MEDS: CLINDAMYCIN PHOSPHATE/D5W 900 MG/50 ML PIGGYBACK 106 MG IV (11:40)
[2023-07-19 11:43] LABS: Alanine Aminotransferase 32 U/L (12-78); Alkaline Phosphatase 135 U/L (38-126); Aspartate Amino Transferase 32 U/L (17-59); Bilirubin,Total 0.8 mg/dl (0.2-1.3); Blood Urea Nitrogen 10 mg/dl (9-20); Calcium 8.6 mg/dl (8.4-10.2); Creatinine Clearance Estimated 96 mL/min (50-200); Estimated Glomerular Filt Rate 57 ml/min (>60); GFR (African American) 69 ML/MIN (>60); Glucose 97 mg/dl (74-100); Potassium 3.7 mmoL/L (3.5-5.1); Sodium 139 mmol/L (136-145); Total Protein,Serum 6.8 g/dl (6.3-8.2)
[2023-07-19] MEDS: BUPIVACAINE 0.5% 30ML VIAL 150 MG (11:48)
--- NOTE | 2023-07-19 11:55 | P.PNANES_ITS ---
[facility] Disclaimer: The information contained in this section may have been updated after the patient was seen, as this information can be updated by other users. Medical History Asthma CAD (coronary artery disease) Cancer Chest pain COPD (chronic obstructive pulmonary disease) Dysphagia GERD (gastroesophageal reflux disease) HTN (hypertension) Palpitations Surgical History History of arthroscopy of both knees History of arthroscopy of right shoulder History of cholecystectomy Family History Other Coronary artery disease Heart attack Social History Smoking Status: Former smoker tobacco type: cigarettes packs per day: 1 alcohol intake: never counseling provided: none substance use type: denies use current occupational status: other Travel in the last 8 weeks: None household members: other housing: other caffeine: No [facility] Anesthesia Checklist Patient Identification Patient Identification: Verbal (Name & ) Structural Data Admitted From: Home Planned Operative Procedure/s: l elbow repair Consent for Planned Operative Procedure(s) Verified: Yes NPO Status Verified Time NPO: 00:00 Additional verifications Anesthesia Reactions: No Hx Blood Transfusions: No Blood Transfusion Reaction: No Airway Assessment Mallampati Score:: Class II C-Spine Mobility Assessed: Yes TMJ Mobility Assessed: Yes Dentition: Edentulous Neurological Assessment Level of Consciousness: Awake, Alert and Appropriate Anesthesia Plan Anesthesia Risk discussed: Yes Anesthesia Plan: Verified ASA Class: III Anesthesia Type: General
--- NOTE | 2023-07-19 12:03 | P.PNANES_ITS ---
[facility] Anesthesia Record Part I Anesthesia Record I Intake, IV Amount: 1,200 Hydration: Adequate Estimated blood loss (mL): 0 Urine output (mL): 0 Blood Pressure: 106/52 SaO2: 94 Pulse Rate: 56 Airway Patency: Patent Respiratory Rate: 12 Temperature: 97.2 F Patient is:: Awake and Stable Stable to PACU at:: 12:04
--- NOTE | 2023-07-19 12:03 | EXP.OP.NOTE ---
Date of procedure: 07/19/23 Pre-op Diagnosis:: Left elbow severe lateral epicondylitis and partial tear of the common extensor tendon origin Post-op Diagnosis:: Same Procedure performed:: Left elbow ultrasound-guided percutaneous tenotomy common extensor tendon origin (TENEX) Surgeon:: Andrew Borja DO RECORDING STUDIO SET UP WORKER:: Kartik Mccracken Anesthesia: GETA Estimated blood loss (mL): 0 Operative findings:: See dictation Operative note:: Patient is identified preoperatively. Left elbow marked with yes my initials. Then transferred to operative suite placed upon the operating bed general anesthesia administered airway secured. With a hand table left upper extremities prepped and draped normal sterile fashion. Once prepped and draped final operative timeout performed to identify proper patient procedure and extremity. Everyone involved the case agreed. There were no counter indications to beginning. Did receive preoperative antibiotics. The Tenex system was passed off and the system was primed. Sterile ultrasound sleeve was used ultrasound probe was then used to identify the lateral epicondyle and area of suspicion with a hyperechoic area of the common extensor tendon origin. And needle was used to guide placement of the incision the common extensor tendon origin once this was identified 11 blade was used to make a saad in the skin and hemostat was used for spreading and then the Tenex handpiece was inserted under direct ultrasound guidance the hyperechoic areas on the area of the common extensor tendon origin were identified and using a [id number] movement with the Tenex probe these were debrided under direct visualization. This gave good area of repair and debridement at the common extensor tendon origin. Once this was complete skin incisions were closed with nylon stitch sterile dressing placed from wrist to elbow patient waken anesthesia taken recovery in stable condition. Condition: stable Disposition: PACU Complications:: None apparent
--- NOTE | 2023-07-19 12:25 | SUR.PHASEI ---
Shawn MCGRATH FIRE OBSERVER NOTIFIED FOR PAIN MED ORDER. LMA REMOVED WITH DIFFICULTY AT 1219.
[2023-07-19] MEDS: MORPHINE 2MG/ML SYRINGE 2 MG IV ×3 (12:32→12:44)
[2023-07-19] MEDS: ONDANSETRON 4MG/2ML VIAL 4 MG IV (12:59)
[2023-07-19 15:09] LABS: Anion Gap 6.7 mEq/L (5-15); Carbon Dioxide 31 mmol/L (22.0-30.0)
[2023-07-19 16:31] LABS: Albumin Level 4.1 g/dl (3.5-5.0); Albumin/Globulin Ratio 1.5 (1.1-1.8); Globulin 2.7 g/dL (1.3-3.2)
[2023-07-20 09:42] VITALS: BP 151/100; PULSE 55; RESP 18; TEMP 36.2; O2SAT 95
--- NOTE | 2023-07-20 09:42 | EXP.ANES.II ---
[facility] Anesthesia Record Part II Anesthesia Record Part II Discharge Time: 13:04 Destination: Surgical Day Care (OP Surgery) PACU nurse assessment reviewed?: Yes Patient Condition:: Good Anesthesia Complications:: None Swallowing reflex intact?: Yes Airway Patency: Patent Cyanosis?: No Blood Pressure: 151/100 SaO2: 95 Respiratory Rate: 18 Pulse Rate: 55 Temperature: 97.1 F Mental Status: Alert & Oriented Pain level:: 4 Nausea and/or vomitting:: None Intake, IV Amount: 0 Hydration: Adequate
== END 2023-07-19 13:27 | disposition home or self-care (01) ==
PROVIDERS: PCP Internal Medicine; Visit Provider Orthopaedic Surgery
PROC: (CPT 24357; principal; 2023-07-19 11:00)
DX: M77.12 Lateral epicondylitis, left elbow (principal)
CPT/HCPCS: 24357; 71045; 80053; 93005; 96374; J2405

== ENCOUNTER 2023-09-15 12:29 | Outpatient (CLI) | payer MEDICAID, SELFPAY ==
--- NOTE | 2023-09-15 12:30 | US_ITS ---
FINAL REPORT CLINICAL HISTORY: History of Thyroid Nodules COMPARISON: 05/24/2022 FINDINGS: THYROID ULTRASOUND: The right lobe of the thyroid measures 5.2 x 2.3 x 3 cm in size. The left lobe of the thyroid measures 5.1 x 2.6 x 2.2 cm in size. There are small cystic nodular foci present in the right lobe of the thyroid, that likely represent small colloid cysts. The isthmus measures 5 mm in thickness. In the isthmus there is an 8 mm heterogeneous nodular focus eccentric to the right, probably present on the prior examination. No new focal nodules or masses are seen. IMPRESSION: 8 mm heterogeneous nodule in the isthmus slightly eccentric to the right, was probably present on the prior exam. This is a TI-RADS category 4 nodule. According to TI-RADS criteria, a nodule of the size does not require follow-up at this time. Multiple small cystic appearing nodules are present as noted on the prior exam, possibly small colloid cysts. Reviewed, Interpreted and Dictated by Henry Silva MD Transcribed by Barby Lund Authenticated and [facility]
[2023-09-15 13:42] LABS: Thyroid Stimulating Hormone 2.35 uIU/mL (0.465-4.68)
== END 2023-09-15 23:59 | disposition home or self-care (01) ==
LOC: RAD 12:30
PROVIDERS: PCP Internal Medicine; Visit Provider Nurse Practitioner
DX: R13.10 Dysphagia, unspecified (principal); R53.83 Other fatigue; Z86.39 Personal history of other endocrine, nutritional and metabolic disease
CPT/HCPCS: 36415; 76536; 84439; 84443

== ENCOUNTER 2023-10-06 09:28 | Emergency (ER) | payer MEDICAID, SELFPAY ==
[2023-10-06 09:28] VITALS: BP 180/143; PULSE 100; RESP 20; TEMP 36.8; O2SAT 97; BMI 31.8
--- NOTE | 2023-10-06 09:29 | ECG_ITS ---
APPROVED REPORT Exam: Resting ECG HR:96 bpm ECG Measurements Heart Rate 96 AXES ID 189 P 76 QRSd 104 QRS -8 QT 368 T 79 QTc 422 Conclusion SINUS RHYTHM WITH OCCASIONAL VENTRICULAR PREMATURE COMPLEXES POSSIBLE LEFT ATRIAL ENLARGEMENT [-0.1mV P-WAVE IN V1/V2] MODERATE ST DEPRESSION [0.05+ mV ST DEPRESSION] ABNORMAL ECG UNCONFIRMED REPORT Electronically signed by : J LUIS BALDWIN, 10/07/2023 06:02:43
--- NOTE | 2023-10-06 09:34 | HMH.EDGENADL ---
Discharge Plan Disposition Patient Disposition: Home, Self-Care Condition: Good Prescriptions Prescriptions: New metronidazole 500 mg tablet 500 mg PO Q8H 5 Days Qty: 15 0RF sulfamethoxazole-trimethoprim 800-160 mg tablet 1 tab PO BID 5 Days Qty: 10 0RF ondansetron 4 mg tablet,disintegrating 4 mg PO Q8H PRN (Reason: nausea and vomiting) 5 Days Qty: 10 0RF Discontinued hydrocodone-acetaminophen 5-325 mg tablet 1 tab PO Q4H PRN (Reason: post op pain) Qty: 7 0RF Rx Instructions: to add to current regimen for extra dose daily for 7 days. No Action diclofenac sodium 1 % gel topical nifedipine 90 mg tablet extended release 24hr PO metoprolol succinate 100 mg tablet extended release 24 hr PO doxazosin 4 mg tablet PO nitroglycerin 0.4 mg tablet, sublingual 0.4 mg SUBLINGUAL Q5M PRN (Reason: Chest Pain) Qty: 20 0RF epinephrine 0.3 mg/0.3 mL auto-injector 0.3 mg IM Q4H PRN (Reason: anaphylaxis) Qty: 2 0RF isosorbide mononitrate 60 mg tablet extended release 24 hr 120 mg PO DAILY metolazone 5 mg tablet 5 mg PO DAILY cyclobenzaprine 5 mg tablet 5 mg PO DAILY rosuvastatin 40 mg tablet 40 mg PO DAILY Referrals Follow up/Referrals: Provider,Referral, MD [Referring] - See instructions Activity Restrictions/Add. Instructions Additional Instructions/Restrictions: As we discussed today, your CT results showed diverticulitis. I have prescribed antibiotics that do not show any issues with your allergies after reviewing your allergy list. I have also prescribed nausea medication. I recommend you continue taking your hydrocodone/acetaminophen tablets which have been prescribed to you for pain. Looking through your prescription history it looks like you regularly get prescribed this medication and more recently dispensed 120 tablets so I am unable to prescribe any more medication on top of that. Please continue to stay hydrated. Please return with any new or worsening symptoms. Clinical Impressions Clinical Impression: Diverticulitis Discharge ED Provider: Altaf Ayala General Adult HPI General Chief complaint: Chest Pain Stated complaint: Chest Pain Time Seen by Provider: 10/06/23 09:34 History of Present Illness HPI narrative: The patient presents with a chief complaint of sudden onset stomach and chest pain that began two days ago. The pain is described as sharp and intermittent, particularly severe around the stomach area. The initial episode occurred while he was watching TV, and subsequently woke him up early in the morning due to the intensity of the pain. He reports a medical history significant for the surgical removal of a nodule near the heart by a thoracic surgeon and mentions having asbestosis throughout the body. Additionally, there is a history of stomach surgeries where 'nodules' were removed, and he believes that some surgical clamps were mistakenly left inside. He also mentions having thyroid issues, including nodules on the thyroid, and is scheduled to see a surgeon later in the month. Associated symptoms include fevers and chills, which occur intermittently, and nausea which led to a recent episode of vomiting outside. There is no report of blood in the vomit, changes in bowel movements, or any relation of the pain to meals. The patient confirms ongoing shortness of breath, attributing it to asbestosis. There have been no recent changes in medications or the introduction of new medications. Please note that above description of symptoms, in this electronic medical record under categorization of recalled from ER triage doctor by RN are reflective of an initial nursing assessment, however, is not reflective of my full history and physical exam that was personally taken and clarified. Consequentially, this preceding description of symptoms, which may include the patient's categorized chief complaint in the EMR, do not reflect my personal clinical impression, and the ultimate description of history of present illness and patient stated complaints should be deferred to this section of the note. Unless stated otherwise or congruent with this section of the note, additional signs, symptoms, or incongruence should be interpreted as inaccurate with my clinical impression. Related Data Home Medications Medication Instructions Recorded Confirmed isosorbide mononitrate 60 mg 120 mg PO DAILY HEART 10/26/22 10/05/23 tablet,extended release 24 hr cyclobenzaprine 5 mg tablet 5 mg PO DAILY 07/17/23 10/05/23 metolazone 5 mg tablet 5 mg PO DAILY 07/17/23 10/05/23 rosuvastatin 40 mg tablet 40 mg PO DAILY 07/17/23 10/05/23 diclofenac sodium 1 % topical gel topical 09/28/23 10/05/23 doxazosin 4 mg tablet mg PO 09/28/23 10/05/23 metoprolol succinate 100 mg mg PO 09/28/23 10/05/23 tablet,extended release 24 hr nifedipine 90 mg tablet,extended mg PO 09/28/23 10/05/23 release 24 hr Previous Rx's Medication Instructions Recorded nitroglycerin 0.4 mg sublingual 0.4 mg sublingual Q5M PRN Chest 07/02/19 tablet Pain #20 tabs epinephrine 0.3 mg/0.3 mL 0.3 mg (0.3 mL) IM Q4H PRN 10/02/23 injection, auto-injector anaphylaxis #2 ea metronidazole 500 mg tablet 500 mg PO Q8H 5 days #15 tabs 10/06/23 ondansetron 4 mg disintegrating 4 mg PO Q8H PRN nausea and 10/06/23 tablet vomiting 5 days #10 tabs sulfamethoxazole 800 1 tab PO BID 5 days #10 tabs 10/06/23 mg-trimethoprim 160 mg tablet Allergies Allergy/AdvReac Type Severity Reaction Status Date / Time ciprofloxacin Allergy Severe S-DIFF. Verified 10/05/23 14:47 BREATHING; SWELLING Corticosteroids Allergy Severe S-SWELLS-OR Verified 10/05/23 14:47 (Glucocorticoids) AL/THROAT erythromycin base Allergy Severe S-DIFF. Verified 10/05/23 14:47 BREATHING; SWELLING Fish Containing Products Allergy Severe S-DIFF. Verified 10/05/23 14:47 [From SEAFOOD (F/D)] BREATHING; SWELLING iopamidol Allergy Severe S-DIFF. Verified 10/05/23 14:47 BREATHING; SWELLING lisinopril Allergy Severe Swelling Verified 10/05/23 14:47 of Lip/Tongue/Throat losartan Allergy Severe bleeding Verified 10/05/23 14:47 kidneys NSAIDS (Non-Steroidal Allergy Severe BLEEDING Verified 10/05/23 14:47 Anti-Inflamma Penicillins Allergy Severe S-DIFF. Verified 10/05/23 14:47 BREATHING; SWELLING tramadol Allergy Severe S-DIFF. Verified 10/05/23 14:47 BREATHING; SWELLING albuterol Allergy Verified 10/05/23 14:47 CONTRAST DYE Allergy Severe RESPIRATORY Uncoded 10/06/23 09:57 FAILURE From SEAFOOD (F/D) Allergy Severe S-DIFF. Uncoded 10/05/23 14:47 BREATHING; SWELLING PFSH PFSH Disclaimer: The information contained in this section may have been updated after the patient was seen, as this information can be updated by other users. Medical History History of thyroid nodule Dysphagia Palpitations GERD (gastroesophageal reflux disease) COPD (chronic obstructive pulmonary disease) Cancer Asthma Chest pain CAD (coronary artery disease) HTN (hypertension) Surgical History History of cholecystectomy History of arthroscopy of both knees History of arthroscopy of right shoulder Family History Other Coronary artery disease Heart attack Social History Smoking Status: Current every day smoker tobacco type: cigarettes packs per day: 1 alcohol intake: never counseling provided: none substance use type: denies use current occupational status: other Travel in the last 8 weeks: None household members: other housing: other caffeine: No ROS Obtained: Yes other As per HPI Physical Exam General General appearance: alert and in no apparent distress Head Head exam: atraumatic and normocephalic Eye Eye exam: Present normal appearance Neck Neck exam: Present normal inspection Chest Chest inspection: Present normal inspection and symmetric chest wall rise Respiratory Respiratory exam: Present normal lung sounds bilaterally; Absent respiratory distress Cardiovascular Cardiovascular exam: Present regular rate and normal rhythm Abdominal Exam Abdominal exam: Present soft and tenderness; Absent guarding, rebound or rigidity Abdominal tenderness: Present LUQ, LLQ and mild Neurological Exam Neurological exam: Present alert and oriented X3 Psychiatric Psychiatric exam: Present normal affect and normal mood Skin Skin exam: Present warm and dry Medical Decision Making Medical Records Medical records reviewed: Yes I reviewed the patient's medical records. [place] Inquiry Pt receiving controlled substance: No Vital Signs: 10/06/23 09:28 10/06/23 10:00 10/06/23 11:00 Temperature 98.3 F Temperature Source Oral Pulse Rate 89 85 Pulse Rate [Right Radial] 100 H Respiratory Rate 20 Blood Pressure 143/102 H 154/97 H Blood Pressure [Right Arm] 180/143 H Blood Pressure Mean [Right Arm] 155 Blood Pressure Source Blood Pressure Source [Right Arm] Automatic Cuff Blood Pressure Position Blood Pressure Position [Right Arm] Sitting 02 Sat by Pulse Oximetry 97 97 92 L Oxygen Delivery Method Room Air Room Air 10/06/23 11:30 10/06/23 12:01 10/06/23 12:38 Temperature 98.7 F Temperature Source Oral Pulse Rate 94 H 90 64 Pulse Rate [Right Radial] Respiratory Rate 18 Blood Pressure 151/92 H 157/106 H 150/64 H Blood Pressure [Right Arm] Blood Pressure Mean [Right Arm] Blood Pressure Source Automatic Cuff Blood Pressure Source [Right Arm] Blood Pressure Position Sitting Blood Pressure Position [Right Arm] 02 Sat by Pulse Oximetry 91 L 93 L Oxygen Delivery Method Room Air Room Air Room Air Lab Data Lab Results 10/06/23 09:35: WBC 11.6 H, RBC 5.19, Hgb 16.9, Hct 49.0, MCV 94.3 H, MCH 32.5 H, MCHC 34.4, RDW 13.5, Plt Count 147, MPV 10.3, Neut % (Auto) 74.1, Lymph % (Auto) 16.1, [place] % (Auto) 6.7, Eos % (Auto) 2.4, Baso % (Auto) 0.7, Neut # (Auto) 8.6 H, Lymph # (Auto) 1.9, [place] # (Auto) 0.8, Eos # (Auto) 0.3, Baso # (Auto) 0.1, Sodium 138, Potassium 3.2 L, Chloride 105, Carbon Dioxide 26, Anion Gap 10.2, BUN 9, Creatinine 1.20, Estimated Creat Clear 105, Estimated GFR 63, Est GFR ( Amer) 76, Glucose 124 H, Calcium 8.9, Total Bilirubin 1.1, AST 31, ALT 32, Alkaline Phosphatase 115, Troponin I < 0.01, Total Protein 7.0, Albumin 4.1, Globulin 2.9, Albumin/Globulin Ratio 1.4, Lipase 41 10/06/23 09:35 10/06/23 09:35 Orders (Tests/Meds): ED MEDICATIONS Discontinued Medications Generic Name Dose Route Start Last Admin Trade Name Freq PRN Reason Stop Dose Admin Aspirin 325 mg 10/06/23 09:35 10/06/23 09:46 Aspirin 325mg Tablet PO 10/06/23 09:36 Not Given ONCE ONE Belladonna Alkaloids 60 ml 10/06/23 09:45 10/06/23 09:56 Belladonna Alkaloids 60 Ml Ml PO 10/06/23 09:46 60 ml ONCE ONE Administration Hydromorphone HCl 0.5 mg 10/06/23 09:45 10/06/23 09:56 Hydromorphone 4 Mg/Ml Syringe IV 10/06/23 09:46 0.5 mg ONCE ONE Administration Lactated Ringer's 1,000 mls @ 999 mls/hr 10/06/23 09:45 10/06/23 09:56 Lactated Ringer's 1000 Ml Bag IV 10/06/23 10:45 999 mls/hr .Q1H1M ONE Administration Ondansetron HCl 4 mg 10/06/23 09:45 10/06/23 09:56 Ondansetron 4mg/2ml Vial IV 10/06/23 09:46 4 mg ONCE ONE Administration ORDERS Category Date Time Status CT abdomen pelvis wo con Stat Cat Scan 10/06/23 09:45 Completed XR chest portable Stat Exams 10/06/23 09:35 Completed CBC w/Auto Diff [Complete Blood Count Auto Diff] Stat Lab 10/06/23 09:35 Completed CMP [Comprehensive Metabolic Panel] Stat Lab 10/06/23 09:35 Completed Lipase Stat Lab 10/06/23 09:35 Completed Troponin I Q3H Lab 10/06/23 09:35 Completed HEART Score History (anamnesis): Slightly suspicious ECG: Normal Age: 45-65 years Risk factors: Atherosclerosis history Troponin: </= normal limit HEART Score: 3 Medical Decision Narrative: Patient with history and exam per above presenting for evaluation of left lower quadrant, left upper quadrant abdominal pain, reported radiation to chest Diagnoses considered include Diverticulitis, ureterolithiasis, bowel obstruction, bowel perforation, hernia, epiploic appendagitis, constipation, pyelonephritis, acute cystitis, low index of suspicion for ACS upon clarification of patient's initially triage symptoms ED workup and treatment included: ED MEDICATIONS Discontinued Medications Generic Name Dose Route Start Last Admin Trade Name Freq PRN Reason Stop Dose Admin Aspirin 325 mg 10/06/23 09:35 10/06/23 09:46 Aspirin 325mg Tablet PO 10/06/23 09:36 Not Given ONCE ONE Belladonna Alkaloids 60 ml 10/06/23 09:45 10/06/23 09:56 Belladonna Alkaloids 60 Ml Ml PO 10/06/23 09:46 60 ml ONCE ONE Administration Hydromorphone HCl 0.5 mg 10/06/23 09:45 10/06/23 09:56 Hydromorphone 4 Mg/Ml Syringe IV 10/06/23 09:46 0.5 mg ONCE ONE Administration Lactated Ringer's 1,000 mls @ 999 mls/hr 10/06/23 09:45 10/06/23 09:56 Lactated Ringer's 1000 Ml Bag IV 10/06/23 10:45 999 mls/hr .Q1H1M ONE Administration Ondansetron HCl 4 mg 10/06/23 09:45 10/06/23 09:56 Ondansetron 4mg/2ml Vial IV 10/06/23 09:46 4 mg ONCE ONE Administration ORDERS Category Date Time Status CT abdomen pelvis wo con Stat Cat Scan 10/06/23 09:45 Completed XR chest portable Stat Exams 10/06/23 09:35 Completed CBC w/Auto Diff [Complete Blood Count Auto Diff] Stat Lab 10/06/23 09:35 Completed CMP [Comprehensive Metabolic Panel] Stat Lab 10/06/23 09:35 Completed Lipase Stat Lab 10/06/23 09:35 Completed Troponin I Q3H Lab 10/06/23 09:35 Completed Labs were independently interpreted by me, significant for white blood cell count 11.6, liver enzymes within normal limits, creatinine 1.20, initial troponin undetectable, lipase within normal limits Imaging was independently visualized and interpreted by me, significant for uncomplicated diverticulitis. Please refer to radiology report for full details. My clinical impression at this time is most consistent with uncomplicated diverticulitis, upon repeat evaluation patient reports moderate improvement of symptoms, after shared decision-making, patient elects to not proceed with draw of second troponin, and wishes to be discharged at this time with course of antibiotics, antiemetics, and close outpatient follow-up. I discussed my clinical impression with patient and answered all questions The patient was advised that persistent or worsening symptoms require further evaluation. I confirmed the patient's understanding of this discussion. Critical Care Critical Care Time Critical Care Time: No
--- NOTE | 2023-10-06 09:35 | XR_ITS ---
FINAL REPORT CLINICAL HISTORY: chest pain COMPARISON: 07/19/2023 FINDINGS: ABDOMEN SINGLE VIEW There is a nonspecific, nonobstructive bowel gas pattern. There are mild bibasilar opacities, favor atelectasis over pneumonia. No abnormal calcification is seen. IMPRESSION: Favor bibasilar atelectasis over pneumonia. Reviewed, Interpreted and Dictated by Luis Carroll III, MD Transcribed by Kitty Alejandra Authenticated and [facility]
--- NOTE | 2023-10-06 09:45 | CT_ITS ---
FINAL REPORT CLINICAL HISTORY: diffuse abdominal pain COMPARISON: None FINDINGS: Axial CT images of the abdomen and pelvis were obtained without intravenous contrast. Coronal and sagittal reformatted images were also obtained.This study was performed with techniques to keep radiation doses as low as reasonably achievable (ALARA). Individualized dose reduction techniques using automated exposure control or adjustment of mA and/or kV according to the patient's size were employed. Abdomen: There is bibasilar atelectasis versus scar, and emphysema in the lung bases. There is no evidence of renal stone or hydronephrosis. The gallbladder has been surgically resected. The liver, spleen and pancreas have an unremarkable, unenhanced appearance. No mass or adenopathy is seen. No inflammatory process is identified. Mild vascular calcifications are noted. There is a small umbilical hernia containing fat. Pelvis: Images of the pelvis reveal no evidence of ureteral dilation or ureteral stone.No mass or abnormal fluid collection is identified. The appendix is unremarkable in appearance. There is diverticulosis in the descending and sigmoid portions of the colon. In the distal sigmoid colon there are changes of sigmoid diverticulitis, with adjacent stranding and inflammatory change but no evidence of abscess. IMPRESSION: No renal or ureteral stone, or hydronephrosis. Distal sigmoid diverticulitis, without evidence of a focal abscess. Reviewed, Interpreted and Dictated by Luis Carroll III, MD Transcribed by Barby Lund Authenticated and [facility]
--- NOTE | 2023-10-06 09:47 | PC.NURSE ---
Patient refused Aspirin due to 'stomach issues'. Aware.
[2023-10-06 09:50] LABS: Basophils # 0.1 K/mm3 (0-0.2); Basophils % 0.7 % (0.1-2.0); Eosinophils # 0.3 K/mm3 (0.0-0.4); Eosinophils % 2.4 % (0.1-12.0); Hemoglobin 16.9 g/dL (14.1-18.0); Lymphocytes # 1.9 K/mm3 (0.7-4.5); Lymphocytes % 16.1 % (10-50); Mean Corpuscular HGB Conc 34.4 g/dL (31.8-35.4); Mean Corpuscular Hemoglobin 32.5 pg (27.0-31.2); Mean Corpuscular Volume 94.3 fl (80-94); Mean Platelet Volume 10.3 fl (7.4-10.4); Monocytes # 0.8 K/mm3 (0.1-1.0); Monocytes % 6.7 % (1.7-9.3); Neutrophils # 8.6 K/mm3 (1.8-7.8); Neutrophils % 74.1 % (37.0-80.0); Platelet Count 147 K/mm3 (142-424); Red Blood Count 5.19 M/mm3 (4.60-6.20); Red Cell Distribution Width 13.5 % (11.5-17.5); White Blood Count 11.6 K/mm3 (4.8-10.8)
[2023-10-06] MEDS: BELLADONNA ALKALOIDS 60 ML ML PO (09:56)
[2023-10-06] MEDS: LACTATED RINGERS 1000ML 1,000 ML 999 ML IV (09:56)
[2023-10-06] MEDS: ONDANSETRON 4MG/2ML VIAL 4 MG IV (09:56)
--- NOTE | 2023-10-06 09:57 | PC.NURSE ---
Pt concerned about the GI cocktail containing IPP dye . Consulted with Sagar in Pharmacy, he is unsure of what dye this is. Consulted with pt further and he was explaining it that he can not have IV contrast dye . Educated pt again regarding the GI cocktail and what it contains. He is agreeable to take it now. MD aware of severe allergy to IV contrast.
[2023-10-06 10:00] VITALS: BP 143/102; PULSE 89; O2SAT 97
[2023-10-06 10:08] LABS: Chloride 105 mmol/L (98-107)
[2023-10-06 10:09] LABS: Potassium 3.2 mmoL/L (3.5-5.1); Sodium 138 mmol/L (136-145)
[2023-10-06 10:11] LABS: Alanine Aminotransferase 32 U/L (12-78); Aspartate Amino Transferase 31 U/L (17-59); Blood Urea Nitrogen 9 mg/dl (9-20); Creatinine Clearance Estimated 105 mL/min (50-200); Estimated Glomerular Filt Rate 63 ml/min (>60); GFR (African American) 76 ML/MIN (>60)
[2023-10-06 10:12] LABS: Albumin Level 4.1 g/dl (3.5-5.0); Albumin/Globulin Ratio 1.4 (1.1-1.8); Alkaline Phosphatase 115 U/L (38-126); Anion Gap 10.2 mEq/L (5-15); Bilirubin,Total 1.1 mg/dl (0.2-1.3); Calcium 8.9 mg/dl (8.4-10.2); Carbon Dioxide 26 mmol/L (22.0-30.0); Globulin 2.9 g/dL (1.3-3.2); Glucose 124 mg/dl (74-100); Lipase 41 U/L (23-300)
--- NOTE | 2023-10-06 10:30 | PC.NURSE ---
pt leaving for CT by WC at this time
[2023-10-06 11:00] VITALS: BP 154/97; PULSE 85; O2SAT 92
[2023-10-06 11:10] LABS: Troponin I < 0.01 ng/ml (0.00-0.034)
[2023-10-06 11:30] VITALS: BP 151/92; PULSE 94; O2SAT 91
[2023-10-06 12:01] VITALS: BP 157/106; PULSE 90; O2SAT 93
[2023-10-06 12:38] VITALS: BP 150/64; PULSE 64; RESP 18; TEMP 37.1; O2SAT 98
== END 2023-10-06 12:44 | disposition home or self-care (01) ==
PROVIDERS: Emergency Provider Emergency Medicine; PCP Nurse Practitioner Family
DX: K57.32 Diverticulitis of large intestine without perforation or abscess without bleeding (principal); E87.6 Hypokalemia; I49.3 Ventricular premature depolarization; R50.9 Fever, unspecified; R11.2 Nausea with vomiting, unspecified; F17.210 Nicotine dependence, cigarettes, uncomplicated; J44.9 Chronic obstructive pulmonary disease, unspecified; I11.9 Hypertensive heart disease without heart failure; I25.10 Atherosclerotic heart disease of native coronary artery without angina pectoris; K21.9 Gastro-esophageal reflux disease without esophagitis
CPT/HCPCS: 71045; 74176; 80053; 83690; 84484; 85025; 93005; 96361; 96374; 96375; 99285; J2405

== ENCOUNTER 2023-11-29 12:47 | Outpatient (CLI) | payer MEDICAID, SELFPAY ==
--- NOTE | 2023-11-29 12:51 | CT_ITS ---
FINAL REPORT CLINICAL HISTORY: abdominal pain COMPARISON: 10/06/2023 FINDINGS: Axial CT images of the abdomen and pelvis were obtained without intravenous contrast. Coronal and sagittal reformatted images were also obtained.This study was performed with techniques to keep radiation doses as low as reasonably achievable (ALARA). Individualized dose reduction techniques using automated exposure control or adjustment of mA and/or kV according to the patient's size were employed. Abdomen: Mild atelectasis versus scar is present in the lung bases. There is no evidence of renal stone or hydronephrosis.The liver, spleen and pancreas have an unremarkable, unenhanced appearance. No mass or adenopathy is seen. No inflammatory process is identified. Pelvis: Images of the pelvis reveal no evidence of ureteral dilation or ureteral stone. There is diffuse colon wall thickening, as well as areas of diverticulosis of the sigmoid colon, with interval improvement of the inflammatory change consistent with diverticulitis that was seen on the prior exam. Today's exam is suggestive of colitis. No mass or abnormal fluid collection is identified. IMPRESSION: No renal or ureteral stone, or hydronephrosis. Diffuse colonic wall thickening, worrisome for colitis. Reviewed, Interpreted and Dictated by Luis Carroll III, MD Transcribed by Barby Lund Authenticated and [facility]
== END 2023-11-29 23:59 | disposition home or self-care (01) ==
LOC: RAD 12:51
PROVIDERS: PCP Surgery; Visit Provider Surgery
DX: K57.92 Diverticulitis of intestine, part unspecified, without perforation or abscess without bleeding (principal)
CPT/HCPCS: 74176

== ENCOUNTER 2023-12-20 13:46 | Outpatient (CLI) | payer MEDICAID, SELFPAY ==
--- NOTE | 2023-12-20 13:50 | XR_ITS ---
FINAL REPORT CLINICAL HISTORY: lt wrist pain FINDINGS: Left wrist Three views were obtained. There is no acute fracture or dislocation. The joint spaces appear normal. No soft tissue abnormality is identified. IMPRESSION: No acute process. Reviewed, Interpreted and Dictated by Henry Silva MD Transcribed by Kitty Alejandra Authenticated and . [facility]
== END 2023-12-20 23:59 | disposition home or self-care (01) ==
LOC: RAD 13:48
PROVIDERS: PCP Nurse Practitioner Family; Visit Provider Orthopaedic Surgery
DX: M25.532 Pain in left wrist (principal)
CPT/HCPCS: 73110

== ENCOUNTER 2024-02-14 11:13 | Outpatient (CLI) | payer MEDICAID, SELFPAY ==
[2024-02-14 11:56] LABS: Alanine Aminotransferase 32 U/L (12-78); Albumin Level 4.2 g/dl (3.5-5.0); Albumin/Globulin Ratio 1.8 (1.1-1.8); Alkaline Phosphatase 103 U/L (38-126); Amylase 69 U/L (30-110); Anion Gap 5.7 mEq/L (5-15); Aspartate Amino Transferase 32 U/L (17-59); Blood Urea Nitrogen 9 mg/dl (9-20); Calcium 9.1 mg/dl (8.4-10.2); Carbon Dioxide 31 mmol/L (22.0-30.0); Chloride 105 mmol/L (98-107); Estimated Glomerular Filt Rate 69 ml/min (>60); GFR (African American) 84 ML/MIN (>60); Globulin 2.3 g/dL (1.3-3.2); Glucose 97 mg/dl (74-100); Lipase 50 U/L (23-300); Potassium 3.7 mmoL/L (3.5-5.1); Sodium 138 mmol/L (136-145); Total Protein,Serum 6.5 g/dl (6.3-8.2)
== END 2024-02-14 23:59 | disposition home or self-care (01) ==
LOC: LAB 11:13
PROVIDERS: PCP Nurse Practitioner Family; Visit Provider Internal Medicine Gastroenterology
DX: R10.13 Epigastric pain (principal)
CPT/HCPCS: 36415; 80053; 82150; 83690

== ENCOUNTER 2024-03-07 08:00 | Day surgery (SDC) | payer MEDICAID, SELFPAY ==
[2024-03-05 12:16] VITALS: BMI 32.6
[2024-03-07 08:15] VITALS: BP 162/84; PULSE 68; RESP 16; TEMP 36.8; O2SAT 95
[2024-03-07] MEDS: LACTATED RINGERS 1000ML 1,000 ML 25 ML IV (08:21)
--- NOTE | 2024-03-07 08:30 | P.PNANES_ITS ---
[facility] Disclaimer: The information contained in this section may have been updated after the patient was seen, as this information can be updated by other users. Medical History (Updated 03/07/24 @ 08:22 by Chiara Zarate) History of myocardial infarction Congestive heart failure Multiple thyroid nodules History of thyroid nodule Dysphagia Palpitations GERD (gastroesophageal reflux disease) COPD (chronic obstructive pulmonary disease) Cancer Asthma Chest pain CAD (coronary artery disease) HTN (hypertension) Surgical History History of colonoscopy History of cholecystectomy History of arthroscopy of both knees History of arthroscopy of right shoulder Family History Other Coronary artery disease Heart attack Social History Smoking Status: Current every day smoker tobacco type: cigarettes packs per day: 1 alcohol intake: never counseling provided: none substance use type: denies use current occupational status: other Travel in the last 8 weeks: None household members: other housing: other caffeine: No [facility] Anesthesia Checklist Patient Identification Patient Identification: Verbal (Name & ) Structural Data Admitted From: Home Planned Operative Procedure/s: egd Consent for Planned Operative Procedure(s) Verified: Yes NPO Status Verified Time NPO: 00:00 Additional verifications Anesthesia Reactions: No Hx Blood Transfusions: No Blood Transfusion Reaction: No Airway Assessment Mallampati Score:: Class II C-Spine Mobility Assessed: Yes TMJ Mobility Assessed: Yes Dentition: Edentulous Neurological Assessment Level of Consciousness: Awake, Alert and Appropriate Anesthesia Plan Anesthesia Risk discussed: Yes Anesthesia Plan: Verified ASA Class: III Anesthesia Type: MAC
[2024-03-07 09:30] VITALS: O2SAT 95
--- NOTE | 2024-03-07 09:40 | HMH.PROCNOTE ---
[facility] Procedure Note Date: 03/07/24 Time: 09:40 Procedure Note:: Upper Endoscopy Procedure Report: Esophagogastroduodenoscopy with cold biopsies and TTS balloon dilation Endoscopost: Sky Grady II, MD Referring Physician: Inna WALTERS Date of Procedure: March 07, 2024 Equipment: Olympus GIF 190 standard upper endoscope Sedation: MAC sedation Indications: Mr. Kauffman is a 58-year-old gentleman with chronic epigastric abdominal discomfort which can sometimes be generalized. He reports bloating, nausea and early satiety. He has occasional dysphagia. The patient had been seen by Dr. 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 He was told to follow-up annually or biannually. He reports no heartburn or reflux. He does have a history of uncomplicated diverticulitis. He reports no belching, gassiness, heartburn or reflux. He does take Protonix daily which is not helping his symptoms. He was drinking up to a 12 pack of carbonated beverages daily. Procedure: Prior to the procedure, a history and physical exam was performed, and patient's medications and allergies were reviewed. The risks, benefits and alternatives of the sedation and procedure were discussed with the patient. All questions were answered and informed consent was obtained. The patient was brought to the procedure room. Patient identification and proposed procedure were verified by the physician and the nurse. The patient was placed in a left lateral decubitus position and the scope was passed under direct vision. Throughout the procedure, the patient's blood pressure, pulse, and oxygen saturations were monitored continuously. The upper GI endoscopy was accomplished without difficulty. The patient tolerated the procedure well. Findings: The scope was passed directly into the upper esophagus and advanced to the third portion of the duodenum. The post bulbar duodenum and duodenal bulb were normal with normal mucosa and conniventes. The scope was withdrawn through a normal duodenal bulb and pylorus into the stomach. There was bile reflux with moderate linear reactive gastropathy of the antrum and body. There was mild gastritis of the body and fundus. 2 biopsies were taken in the antrum and along the lesser curvature for histology to rule out gastritis and/or H pylori. Upon retroflexion there was no hiatal hernia. The scope was then withdrawn into the esophagus. There was a serrated Z-line but no evidence of reflux esophagitis or Ugarte's. Biopsies were taken from the GE junction. There were tertiary contractions and evidence of moderate esophageal dysmotility. The entire esophagus was dilated to 60 Welsh/20 mm with a TTS hydrostatic balloon. There was minimal resistance. The remainder of the esophageal mucosa was normal. Impression: 1. Nonerosive GERD with moderate esophageal dysmotility 2. Bile reflux with moderate linear reactive gastropathy and mild type A proximal gastritis Plan: I will follow-up the biopsies to rule out H. pylori. I will also check biopsies to see if there is evidence of any intestinal metaplasia at the GE junction. The patient does have functional dyspepsia. I have recommended dietary measures and we will discuss additional treatment options today. I will proceed with colonoscopy.
[2024-03-07 09:53] VITALS: BP 145/91; PULSE 68; RESP 16; TEMP 37.2; O2SAT 93
[2024-03-07 10:10] VITALS: BP 132/91; PULSE 54; RESP 16; O2SAT 93
[2024-03-07 10:23] VITALS: BP 131/96; PULSE 54; RESP 18; O2SAT 94
== END 2024-03-07 10:23 | disposition home or self-care (01) ==
PROVIDERS: PCP Nurse Practitioner; Visit Provider Internal Medicine Gastroenterology
PROC: 0DJ08ZZ Inspection of Upper Intestinal Tract, Via Natural or Artificial Opening Endoscopic (ICD-10-PCS; CPT 43235; principal; 2024-03-07 10:00)
DX: R10.13 Epigastric pain (principal); R10.10 Upper abdominal pain, unspecified; R14.0 Abdominal distension (gaseous); R11.0 Nausea; R68.81 Early satiety; R13.10 Dysphagia, unspecified; K29.70 Gastritis, unspecified, without bleeding; K22.4 Dyskinesia of esophagus; K21.9 Gastro-esophageal reflux disease without esophagitis; Z85.01 Personal history of malignant neoplasm of esophagus; Z72.0 Tobacco use; K31.9 Disease of stomach and duodenum, unspecified
CPT/HCPCS: 43239; 43249; C1726; J7120

== ENCOUNTER 2024-04-24 15:01 | Outpatient (CLI) | payer MEDICAID, SELFPAY ==
--- NOTE | 2024-04-24 15:10 | XR_ITS ---
FINAL REPORT CLINICAL HISTORY: CHEST PAIN hx of nodule near bottom of sternum, taken out, patient says it was cancer, can feel a nodule here again COMPARISON: 10/06/2023 FINDINGS: CHEST 2 VIEWS PA AND LATERAL The heart is normal in size. The mediastinum is unremarkable. The lungs are hyperinflated consistent with COPD. No mass is identified. There is no pneumothorax. IMPRESSION: COPD. No mass identified. Reviewed, Interpreted and Dictated by Luis Carroll III, MD Transcribed by Kitty Alejandra Authenticated and [facility]
== END 2024-04-24 23:59 | disposition home or self-care (01) ==
PROVIDERS: PCP Nurse Practitioner; Visit Provider Nurse Practitioner
DX: R07.9 Chest pain, unspecified (principal)
CPT/HCPCS: 71046

== ENCOUNTER 2024-05-16 09:16 | Outpatient (POV) | payer MEDICAID, SELFPAY ==
[2024-05-16 09:37] VITALS: BP 171/99; PULSE 86; RESP 95; O2SAT 95; BMI 32.8
--- NOTE | 2024-05-16 10:00 | A.OFFVIS_ITS ---
[facility] Disclaimer: The information contained in this section may have been updated after the patient was seen, as this information can be updated by other users. Medical History (Updated 05/16/24 @ 10:05 by Vaishali Borja APRN) History of myocardial infarction Congestive heart failure Multiple thyroid nodules History of thyroid nodule Dysphagia Palpitations GERD (gastroesophageal reflux disease) COPD (chronic obstructive pulmonary disease) Cancer Asthma Chest pain CAD (coronary artery disease) HTN (hypertension) Surgical History History of colonoscopy History of cholecystectomy History of arthroscopy of both knees History of arthroscopy of right shoulder Family History Other Coronary artery disease Heart attack Social History Smoking Status: Current every day smoker tobacco type: cigarettes packs per day: 1 alcohol intake: never counseling provided: none substance use type: denies use current occupational status: other Travel in the last 8 weeks: None household members: other housing: other caffeine: No PM Subjective & Objective Subjective Subjective:: Patient is a pleasant 58-year-old male who presents today for worsening neck pain with radiating numbness and tingling into his left upper extremity. Patient denies any new trauma or injury. He rates his pain today a 6 out of 10. Patient does state that he ended up having updated imaging there at for his cervical spine due to worsening pain symptoms. He states that he has been to see 2 different neurosurgeons and neither of them are recommending surgery due to being too high risk. Patient states the pain is constant and describes it as an aching, throbbing sensation with numbness and tingling. He does state the pain is interfering with his ability to perform activities of daily living such as cooking and cleaning. Patient does state in the past he has had injections and initially they really helped however over time they became less effective. Patient states that he ended up having surgery on his elbow and had an EMG test following by Dr. Avendaño and that is when the left arm numbness tingling started. Patient does state that he has a prior history of allergy to steroids and stated that he did have tongue swelling. He is prescribed [place] 5 mg 4 times a day from an outside provider. His [place] has been reviewed and is appropriate. Review of Systems: General: No recent weight changes, no fever, no sleep disturbances Respiratory: No cough, no shortness of air, no recurring pulmonary infections Cardiovascular/peripheral vascular: No chest pain, no palpitations, no edema, no shortness of breath Gastrointestinal: No new onset incontinence, normal bowel movements reported Genitourinary: No new onset incontinence Musculoskeletal: Neck pain, left arm pain Psychiatric: [Normal mood/affect] Neurological: [Denies weakness in extremities], [denies balance issues] Pain at rest (0-10 scale): 6 Objective Objective:: Physical Exam: General: Alert and oriented x3, no acute distress, pleasant and cooperative Lungs: Respirations even and unlabored, symmetrical chest expansion Eyes: PERRL Musculoskeletal: Flexion and extension of cervical [spine] somewhat guarded secondary to pain, [antalgic gait noted] Neurological: Speech clear, no gross sensory deficit Has patient had previous pain injection?: No Conservative treatment options previously tried: Home exercise plan Length of treatment: Longer than 12 weeks Meds Home Medications and Allergies Home Medications ?Medication ?Instructions ?Recorded ?Confirmed ?Type nitroglycerin 0.4 mg sublingual 0.4 mg sublingual Q5M PRN Chest 07/02/19 05/16/24 Rx tablet Pain #20 tabs isosorbide mononitrate 60 mg 120 mg PO DAILY HEART 10/26/22 05/16/24 History tablet,extended release 24 hr cyclobenzaprine 5 mg tablet 5 mg PO DAILY 07/17/23 05/16/24 History metolazone 5 mg tablet 5 mg PO DAILY 07/17/23 05/16/24 History rosuvastatin 40 mg tablet 40 mg PO DAILY 07/17/23 05/16/24 History diclofenac sodium 1 % topical gel 1 ea topical DAILY 09/28/23 05/16/24 History doxazosin 4 mg tablet 4 mg PO NEEDED PRN Chest Pain 09/28/23 05/16/24 History metoprolol succinate 100 mg 100 mg PO DAILY 09/28/23 05/16/24 History tablet,extended release 24 hr nifedipine 90 mg tablet,extended 90 mg PO DAILY 09/28/23 05/16/24 History release 24 hr epinephrine 0.3 mg/0.3 mL 0.3 mg (0.3 mL) IM Q4H PRN 10/02/23 05/16/24 Rx injection, auto-injector anaphylaxis #2 ea ondansetron 4 mg disintegrating 4 mg PO Q8H PRN nausea and 10/06/23 05/16/24 Rx tablet vomiting 5 days #10 tabs hydrocodone 5 mg-acetaminophen 325 1 tab PO Q8H PRN Pain 10/24/23 05/16/24 History mg tablet pantoprazole 40 mg tablet,delayed 40 mg PO DAILY 11/07/23 05/16/24 History release metronidazole 500 mg tablet 500 mg PO Q8H #30 tabs 12/19/23 05/16/24 Rx benzonatate 100 mg capsule 100 mg PO TID PRN cough #30 caps 01/11/24 05/16/24 Rx metoclopramide HCl 10 mg tablet 10 mg PO QAC #90 tabs 02/14/24 05/16/24 Rx metoclopramide HCl 10 mg tablet 10 mg PO QAC #90 tabs 03/11/24 05/16/24 Rx New Prescriptions to Start Prescriptions: Allergies Allergy/AdvReac Type Severity Reaction Status Date / Time ciprofloxacin Allergy Severe S-DIFF. Verified 03/05/24 12:15 BREATHING; SWELLING Corticosteroids Allergy Severe S-SWELLS-OR Verified 03/05/24 12:15 (Glucocorticoids) AL/THROAT erythromycin base Allergy Severe S-DIFF. Verified 03/05/24 12:15 BREATHING; SWELLING Fish Containing Products Allergy Severe S-DIFF. Verified 03/05/24 12:15 (From SEAFOOD (F/D)) BREATHING; SWELLING iopamidol Allergy Severe S-DIFF. Verified 03/05/24 12:15 BREATHING; SWELLING lisinopril Allergy Severe Swelling Verified 03/05/24 12:15 of Lip/Tongue/Throat losartan Allergy Severe bleeding Verified 03/05/24 12:15 kidneys NSAIDS (Non-Steroidal Allergy Severe BLEEDING Verified 03/05/24 12:15 Anti-Inflamma Penicillins Allergy Severe S-DIFF. Verified 03/05/24 12:15 BREATHING; SWELLING tramadol Allergy Severe S-DIFF. Verified 03/05/24 12:15 BREATHING; SWELLING albuterol Allergy Unknown Verified 03/05/24 12:15 allergy reaction CONTRAST DYE Allergy Severe RESPIRATORY Uncoded 02/14/24 10:42 FAILURE From SEAFOOD (F/D) Allergy Severe S-DIFF. Uncoded 02/14/24 10:42 BREATHING; SWELLING Assessment and Plan *Assessment and plan (1) Degenerative disc disease, cervical: Status: Acute Category: Medical Code(s): M50.30 - Other cervical disc degeneration, unspecified cervical region (2) Cervical radiculopathy: Status: Acute Category: Medical Code(s): M54.12 - Radiculopathy, cervical region (3) Chronic pain syndrome: Status: Acute Category: Medical Code(s): G89.4 - Chronic pain syndrome Plan Patient was discussed due to his reaction to steroids that we may be able to see if he is a potential candidate of a spinal cord stimulator. Patient has been to multiple neurosurgeons and is not a candidate for neck surgery due to the risk. I did review over the risk and benefits and educational handouts during today's visit. Patient would like to proceed forward with this plan of care. Patient will be ordered a psychological evaluation and if he is deemed an appropriate candidate we will proceed forward with the trial at a later date. Patient will return to clinic in 1 month following his evaluation for plan of care. Patient has been instructed to contact the clinic with any concerns before the next appointment. Dr. Lopez has reviewed this note and agrees with this plan of care. This note was dictated using voice recognition software and make contain errors or omissions. All injections are used with Lidocaine, Bupivacaine and Depo Medrol. Occasionally urine drug screen is needed to verify patient's compliance with our office pain contract. This is ordered based off specific treatments related to chronic pain with the potential to abuse certain medications.
== END 2024-05-16 23:59 | disposition home or self-care (01) ==
LOC: SC.PAIN 09:18
PROVIDERS: PCP Nurse Practitioner; Visit Provider Nurse Practitioner Family
DX: M50.10 Cervical disc disorder with radiculopathy, unspecified cervical region (principal); G89.4 Chronic pain syndrome; F17.210 Nicotine dependence, cigarettes, uncomplicated; Z73.89 Other problems related to life management difficulty; Z79.899 Other long term (current) drug therapy
CPT/HCPCS: 99212; G0463

== ENCOUNTER 2024-06-18 14:23 | Outpatient (CLI) | payer MEDICAID, SELFPAY ==
[2024-07-12 10:04] LABS: Miscellaneous Test SCANNED IMAGE
== END 2024-06-18 23:59 | disposition home or self-care (01) ==
LOC: LAB 14:24
PROVIDERS: PCP Nurse Practitioner; Visit Provider Nurse Practitioner
DX: R69 Illness, unspecified (principal)
CPT/HCPCS: 36415

== ENCOUNTER 2024-06-26 14:31 | Outpatient (CLI) | payer MEDICAID, SELFPAY ==
--- NOTE | 2024-06-26 14:34 | CT_ITS ---
FINAL REPORT TECHNIQUE: Axial images were obtained through the chest without contrast. This study was performed with techniques to keep radiation doses as low as reasonably achievable (ALARA). Individualized dose reduction techniques using automated exposure control or adjustment of mA and/or kV according to the patient's size were employed. CLINICAL HISTORY: LYMPHOMA COMPARISON: 01/25/2023 FINDINGS: CT CHEST WITHOUT CONTRAST: There are a few small right paratracheal nodes, measuring up to 12 mm in size, stable. No axillary or hilar adenopathy is noted. There are moderately advanced changes of centrilobular emphysema present. The heart size is normal. There is no pericardial or pleural effusion. Limited images of the upper abdomen are unremarkable. The previously seen nodule in the left lower lobe, 5 mm in size, is stable when compared to the prior examination, best seen on image #147 of series 3. There is another small left base nodule, 4 mm in size, best seen on image #148 of series 3, also stable. Scattered calcified granulomas are noted in the lung medrano bilaterally, unchanged. IMPRESSION: Left lower lobe nodule, stable as described above. Another small left base nodule, 4 mm in size, is also stable. No new masses or nodules are identified. Right paratracheal nodes, measuring up to 12 mm in size, remain unchanged since the prior exam. Reviewed, Interpreted and Dictated by Henry Silva MD Transcribed by Barby Lund Authenticated and [facility]
== END 2024-06-26 23:59 | disposition home or self-care (01) ==
LOC: RAD 14:32
PROVIDERS: PCP Nurse Practitioner; Visit Provider Nurse Practitioner
DX: C85.90 Non-Hodgkin lymphoma, unspecified, unspecified site (principal)
CPT/HCPCS: 71250

== ENCOUNTER 2024-09-02 13:58 | Outpatient (CLI) | payer MEDICAID, SELFPAY ==
--- OUTSIDE RECORDS SUMMARY | 2024-09-02 14:01 | XMS_ITS | Data Portability ---
Author Organization [facility] - [place] [facility] Address [address] [place] [id number] Care Team Providers Care Coiler Name Role Phone APOLINAR MARISCAL Primary Care Provider Assessment Encounter Date Assessment Date Assessment LastModified by Organization Details LastModified Time 11/06/2023 11/06/2023 57-year-old male with: 1) Diverticulitis -Will discuss scheduling colonoscopy at follow up once symptoms have resolved -Patient instructed to start fiber supplement once daily such as Metamucil or Citrucel as it has a protective effect to help prevent worsening disease and can reduce recurrent episodes -Patient educated that looser stools are permissive. If patient begins to experience constipation, start Miralax 1 capful in 8oz of liquid once daily to help facilitate adequate bowel movements -Discussed high-fiber diet -Discussed weight loss. Patient states he is having trouble losing weight and would like a referral for medical weight loss management and possibly bariatric surgery -Reduce meat intake -Discussed tobacco cessation 2) Barretts esophagus -Will prescribe pantoprazole 40mg daily. -EGD with Dr. Mello on 12/10/2021, pathology showed intestinal metaplasia without dysplasia. Repeat recommended in 3 years. Due 12/10/2024. - Take PPI 30 minutes before eating for it to be effective - Elevation of head of the bed - Remain upright 2 to 3 hours after eating - Dietary modification: Avoidance of triggers such as fatty foods, caffeine, chocolate, spicy foods, food with high fat content, carbonated beverages, peppermint, acidic and citrus items - Avoidance of tight fitting garments - Promotion of salivation through oral lozenges/chewing gum to neutralize refluxed acid - Avoidance of tobacco and alcohol 6-8 week f/u [email or web address] Not available 11/06/2023 16:37:06 Plan of Treatment Reminders Order Date Submit Date Provider Last Modified By Organization Details Last Modified Time Details Appointments None record ed. Lab None record ed. Referral dermat ologis t referr al 2022 023 [facility], [address] [facility], [place], [address], 3 14:32:26 endocr inolog y referr al - thyroi d nodule [address] [facility] , [address] [facility], [place], [address], 3 05:01:47 Procedures None record ed. Surgeries None record ed. Imaging CT, chest, w/o contra st [address] (Scheduling), [address], [place], [address], 3 10:16:35 Medication Orders pantop razole 40 mg tablet ,delay ed releas e 2023 024 [facility], [address] [facility] 27 [place], [id number], 4 15:07:34 Patient TargetsNo targets recorded. Patient InstructionsNo instructions recorded. Reason for Referral Endocrinology Referral for T hyroid nodule thyroid nodule Referring Physician: Jose Mccracken, Hematology/Oncology, Encounter Date: 07/29/2022 Veneer Measurer Referral for S kin lesion Referring Physician: Jose Mccracken Hematology/Oncology, Encounter Date: 02/01/2023 Results Created Date Observation Date Name Description Value Unit Range Abnormal Flag Note LastModifiedBy Organization Detail LastModifiedTime 07/26/19 23 05/24/2022 US, thyro id No observ ation record ed. [email or web address] [facility] (Med Record) [address], [place], [address], 07/26/2022 08:54:38 12/20/1912/14/2022 imagi ng/di agnos tic resul t No observ ation record ed. [email or web address] [address], [place], [address], 12/20/2022 06:28:04 12/22/1912/30/2018 CT, chest , w/ contr ast No observ ation record ed. [address] Replaced By [facility], [place], [address], 12/22/2022 10:08:15 01/11/20 23 12/14/2022 CT, chest , w/ contr ast No observ ation record ed. [address] [facility] [address], [place], [address], 01/11/2023 13:35:49 01/28/2001/25/2023 CT, chest , w/o contr ast No observ ation record ed. [facility] [address], [place], [address], 01/27/2023 12:44:10 02/02/2005/13/2020 CT, chest , w/ contr ast No observ ation record ed. [email or web address] [facility] (Med Record) [address], [place], [address], 02/01/2023 14:01:06 02/02/20 23 05/13/2020 CT, chest , w/ contr ast No observ ation record ed. [email or web address] [facility] [address], [place], [address], 02/02/2023 08:58:00 07/04/1906/26/2024 CT, chest , w/ contr ast No observ ation record ed. [email or web address] [facility] (Med Record) [address], [place], [place], [address], 07/04/2024 15:40:52 08/17/19 25 PET, skull base to mid-t high No observ ation record ed. [email or web address] Not Available 2024 12:39:53 Result Notes None recorded. Procedures Surgical History Date Name Laterality Status Provider Name and Address Organization Details Recorded Time 021 Gastrointestinal Surgery completed Neo PRADHAN - [facility] & [place] 11/06/2023 14:00:49 Imaging Results Imaging Date Name Status LastModified by Organiz ation Details LastModified Time 05/24/2022 US, thyroid completed [address] (Med Record) [address], [place], [address], 07/26/2022 08:54:38 12/14/2022 imaging/diagn ostic result completed [address] [facility] [place] [address], [place], [address], 12/20/2022 06:28:04 12/30/2018 CT, chest, w/ contrast completed [address], [place], [address], 12/22/2022 10:08:15 12/14/2022 CT, chest, w/ contrast completed [address] [place], [address], 01/11/2023 13:35:49 01/25/2023 CT, chest, w/o contrast completed [email or web address] [facility] [address], [place], [address], 01/27/2023 12:44:10 05/13/2020 CT, chest, w/ contrast completed [email or web address] [facility] (Med Record) [address], [place], [address], 02/01/2023 14:01:06 05/13/2020 CT, chest, w/ contrast completed [email or web address] [facility] [address], [place], [address], 02/02/2023 08:58:00 06/26/2024 CT, chest, w/ contrast completed [email or web address] [facility] (Med Record) [address], [place], [address], 07/04/2024 15:40:52 08/16/2024 PET, skull base to mid-thigh completed [email or web address] Information not available 08/16/2024 12:39:53 Procedure Notes None recorded. Medical Equipment None Reported. Allergies Allergen ID Allergen Name Allergen Category Reaction Reaction Severity Criticality Documentation Date Start Date Code Code System Note Provider Name and Address Organization Details Recorded Time 004542 Cipro medicatio n Not available Not available Not available 11/06/2023 92683 3 RxNorm Neo Adler n null, [place] - [facility] - [place] 4 14:11:53 823952 Product containin g glucocort icoid (product) medicatio n Not available Not available Not available 11/06/2023 81290 6006 SNOMED Neo Adler n null, [place] - [facility] & [place] 4 14:12:04 407260 erythromy deborah medicatio n Not available Not available Not available 11/06/2023 4053 RxNorm Neo Adler n null, [place] - [facility] - [place] 4 14:12:12 784169 Fish (substanc e) food,medi cation Not available Not available Not available 11/06/2023 12622 1005 SNOMED Neo Adler n null, [place] - [facility] [place] 4 14:12:27 659002 iopamidol medicatio n Not available Not available Not available 11/06/2023 5966 RxNorm Neo Bartletto n null, [place] - [facility] [place] 4 14:12:34 474457 lisinopri l medicatio n Not available Not available Not available 11/06/2023 90724 RxNorm Neo Williamso n null, [place] - [facility] & [place] 4 14:12:45 612758 losartan medicatio n Not available Not available Not available 11/06/2023 17574 RxNorm Neo Williamso n null, [place] [facility] & [place] 4 14:12:52 602682 Non-stero idal anti-infl ammatory agent (product) medicatio n Not available Not available Not available 11/06/2023 13251 005 SNOMED Neo Williamso n null, [place] - [facility] & [place] 4 14:12:58 777934 Product containin g penicilli n (product) medicatio n Not available Not available Not available 11/06/2023 17879 8001 SNOMED Neo Williamso n null, [place] - [facility] & [place] 4 14:13:04 357868 tramadol medicatio n Not available Not available Not available 11/06/2023 59386 RxNorm Neo Williamso n null, [place] - [facility] & [place] 4 14:13:11 433354 albuterol medicatio n Not available Not available Not available 11/06/2023 435 RxNorm Neo Williamso n null, [place] [facility] & [place] 4 14:13:29 779053 Iodinated contrast media (substanc e) medicatio n Not available Not available Not available 11/06/2023 13045 2004 SNOMED Neo Williamso n null, [place] - [facility] & [place] 4 14:13:36 Medications Name Sig Start Date Stop Date Status Note LastModified by Organization Details LastModified Time lpv cream (rr) 11/05 completed Not Available Not Available Not Available amantadine HCl 100 mg tablet 12/13 completed Not Available Not Available Not Available losartan 50 mg tablet 12/13 completed Not Available Not Available Not Available latanoprost 0.005 % eye drops 11/05 completed Not Available Not Available Not Available ipratropium 0.5 mg-albuterol 3 mg (2.5 mg base)/3 mL nebulization soln active Not Available Not Available Not Available clindamycin HCl 300 mg capsule 03/20 completed Not Available Not Available Not Available doxazosin 1 mg tablet 11/05 completed Not Available Not Available Not Available azithromycin 250 mg tablet 11/05 completed Not Available Not Available Not Available metoprolol succinate ER 50 mg tablet,extend ed release 24 hr 12/13 completed Not Available Not Available Not Available hydrocodone 5 mg-acetaminop hen 325 mg tablet active Not Available Not Available Not Available metoprolol succinate ER 100 mg tablet,extend ed release 24 hr active Not Available Not Available Not Available metolazone 5 mg tablet active Not Available Not Available No t Available metronidazole 500 mg tablet active Not Available Not Availabl e Not Available sulfamethoxaz ole 800 mg-trimethopr im 160 mg tablet active Not Available Not Available Not Available spironolacton e 25 mg tablet 03/20 completed Not Available Not Available Not Available lidocaine-frank locaine 2.5 %-2.5 % topical cream 03/20 completed Not Available Not Available Not Available isosorbide mononitrate ER 120 mg tablet,extend ed release 24 hr active Not Available Not Available Not Available losartan 100 mg-hydrochlor othiazide 25 mg tablet 12/13 completed Not Available Not Available Not Available nifedipine ER 90 mg tablet,extend ed release 24 hr active Not Available Not Available Not Available amlodipine 10 mg tablet 12/13 completed Not Available Not Available Not Available pantoprazole 40 mg tablet,delaye d release Take 1 tablet every day by oral route for 90 days. active Not Available Not Available No t Available nitroglycerin 0.4 mg sublingual tablet active Not Available Not Available Not Available doxazosin 4 mg tablet active Not Available Not Available No t Available epinephrine 0.3 mg/0.3 mL injection, auto-injector active Not Available Not Availabl e Not Available nifedipine ER 60 mg tablet,extend ed release 11/05 completed Not Available Not Available Not Available ondansetron 4 mg disintegratin g tablet active Not Available Not Available Not Available losartan 100 mg tablet 03/20 completed Not Available Not Available Not Available doxazosin 2 mg tablet 11/05 completed Not Available Not Available Not Available cyclobenzapri ne 5 mg tablet active Not Available Not Available Not Available rosuvastatin 40 mg tablet active Not Available Not Available Not Available Flovent HFA 110 mcg/actuation aerosol inhaler 03/20 completed Not Available Not Available Not Available ProAir HFA 90 mcg/actuation aerosol inhaler 03/20 completed Not Available Not Available Not Available diclofenac 1 % topical gel active Not Available Not Availabl e Not Available Bevespi Aerosphere 9 mcg-4.8 mcg HFA aerosol inhaler 03/20 completed Not Available Not Available Not Available Trelegy Ellipta 100 mcg-62.5 mcg-25 mcg powder for inhalation 03/20 completed Not Available Not Available Not Available Nexlizet 180 mg-10 mg tablet active Not Available Not Available Not Available Vitals Date Recorded Body weight Body mass index (BMI) Body height Body temperature Oxygen saturation Oxygen saturation in Arterial blood by Pulse oximetry Heart rate Systolic blood pressure Diastolic blood pressure Provider Name and Address Organization Details Last Updated DateTime 528929. 05 g 34.6 kg/m2 182.88 cm 97.7 [degF] 97 % 97 % 84 /min 164 mm[Hg] 111 mm[Hg] Neo ruano [place] - [facility] & [place] 14:05:35 Social History Question Answer Notes LastModified by Organizat ion Details LastModified Time Tobacco Smoking Status Former Smoker Neo lai, [place] - [facility] & [place] 11/06/2023 14:00:43 Do You Have An Advance Directive? Yes Information not available 11/06/2023 What Is Your Level Of Alcohol Consumption? None [email or web address] Information not available 11/06/2023 Are You Blind Or Do You Have Difficulty Seeing? Yes Information not available 11/06/2023 What Was The Date Of Your Most Recent Tobacco Screening? 07/24/2022 [email or web address] Information not available 11/06/2023 Are You Passively Exposed To Smoke? No [email or web address] Information no t available 11/06/2023 Do You Or Have You Ever Used Smokeless Tobacco? Never Used Smokeless Tobacco [email or web address] Information not available 11/06/2023 How Much Tobacco Do You Smoke? No [email or web address] Information not available 11/06/2023 Do You Feel Stressed (tense, Restless, Nervous, Or Anxious, Or Unable To Sleep At Night)? [id number] [email or web address] Information not available 11/06/2023 Do You Use Any Illicit Or Recreational Drugs? No [email or web address] Information not available 11/06/2023 How Many Years Have You Smoked Tobacco? 35 [email or web address] Information not available 11/06/2023 Sex: Unknown Functional Status Question Answer Note LastModified by Organization D etails LastModified Time What is your exercise level? Moderate [email or web address] Information not available 11/06/2023 Mental Status None recorded. Family History Relationship Description Onset Age of this Age Resolved Age Notes LastModified by Organization Details LastModified Time Mother Chronic obstructive pulmonary disease pt. added direct ly (11/02) [email or web address] Not available 11/03/2023 14:14:24 Father Chronic obstructive pulmonary disease pt. added direct ly (11/02) [email or web address] Not available 11/03/2023 14:14:24 Medical History Condition Response Lung Disease Y COPD Y Autoimmune disease Y Vision or Eye Problems Y Arthritis Y Thyroid Problems Y GI Problems Y Osteoporosis/Osteopenia Y Neurological Problems Y Back Problems Y Heart Disease Y Hypertension Y Immunizations Vaccine Type Date Status Note Provider Nam e and Address Organization Details Recorded Time influenza, intradermal, quadrivalent, preservative free 9 completed Brooklynn lai, [place] - [facility] & [place] 10/27/2023 08:17:10 Pneumococcal conjugate PCV 13 9 completed Brooklynn lai, [place] - [facility] & [place] 10/27/2023 08:17:10 Td (adult), 2 Lf tetanus toxoid, preservative free, adsorbed 4 completed Brooklynn lai, [place] - [facility] & [place] 10/27/2023 08:17:10 DTaP 4 completed Brooklynn lai, [place] - [facility] & [place] 10/27/2023 08:17:10 Past Encounters Encounter ID Performer Location Encounter Start Date Encounter Closed Date Diagnosis/Indication Diagnosis SNOMED-CT Code Diagnosis ICD10 Code Diagnosis Note [id number] Jose Mccracken MD [facility] [address] [place] [address] 07/29/2022 12:03:08 07/29/2022 12:07:25 Multiple nodules of lung 510956540 R91.8 Patient with long history of pulmonary nodules. Patient follows with Pulmonary Medicine. Patient has been seen previously [facility] by Pulmonary Medicine as well as CT surgery. Bronchosco py to evaluate nodules without evidence of malignancy . CT scan of the chest without contrast on January 11, 2022 with comparison made to imaging on August 06, 2021. Findings of no mediastina l or hilar lymphadeno roland. Moderate to severe emphysemat ous changes. No focal pneumonia. No suspicious pulmonary nodule or mass. Ultrasound of the thyroid performed on May 24, 2022 with findings of right thyroid lobe 5.8 x 3.0 x 2.4 cm. Left thyroid lobe with findings of 5.8 x 2.4 x 2.0 cm. Isthmus measuring 9 mm. Small hypoechoic nodules in the right lobe that measures 3 and 4 mm. These are stable in size. Probable cyst in the thyroid isthmus. No lesions in the left thyroid lobe. Moderate thyromegal y diffusely and progressiv e thyromegal y since previous imaging on October 27, 2021. During evaluation with Gastroente rology for difficulty swallowing patient had discussion of thyroid enlargemen t causing symptoms with swallowing . Patient seen by ENT at [facility] and no interventi on planned. Telephone visit on July 29, 2022. Discussed repeat CT scan of the chest and will proceed with repeat in December 2022. discussed potential evaluation with Endocrinol ogy due to thyromegal y. Patient is on a regular diet. Will consult with Endocrinol ogy if any further testing needs to be performed of thyromegal y. Telephone visit on July 29, 2022 began at 11 40 a.m. and ended at 12:05 p.m.. Thyroid nodule [id number] E04.1 Ultrasound of the thyroid performed on October 27, 2021. Thyroid slightly enlarged at 2.4 x 5.0 x 2.5 cm. Two nodules on the right seen. Solid hypoechoic nodule 3.0 x 3.0 x 2.0 mm consistent with TI-RADS category 4. Second nodule is 4.0 x 3.0 x 3.0 mm and thy- rads category 4. No follow-up required. Ultrasound of the thyroid performed on May 24, 2022 with findings of right thyroid lobe 5.8 x 3.0 x 2.4 cm. Left thyroid lobe with findings of 5.8 x 2.4 x 2.0 cm. Isthmus measuring 9 mm. Small hypoechoic nodules in the right lobe that measures 3 and 4 mm. These are stable in size. Probable cyst in the thyroid isthmus. No lesions in the left thyroid lobe. Moderate thyromegal y diffusely and progressiv e thyromegal y since previous imaging on October 27, 2021. During evaluation with Gastroente rology for difficulty swallowing patient had discussion of thyroid enlargemen t causing symptoms with swallowing . Patient seen by ENT at [facility] and no interventi on planned. Telephone visit on July 29, 2022. Discussed repeat CT scan of the chest and will proceed with repeat in December 2022. discussed potential evaluation with Endocrinol ogy due to thyromegal y. Patient is on a regular diet. Will consult with Endocrinol ogy if any further testing needs to be performed of thyromegal y. 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 Thrombocyt openic disorder [id number] D69.6 Labs on December 24, 2020 with white blood cell count 7.7. Red blood count 5.2. Hemoglobin 16.5 and hematocrit 47.0. Platelet count 323706. Normal cell differenti al. Patient recently seen at [facility] and had labs performed on October 15, 2021. White blood cell count 7.2. Red blood count 5.24. Hemoglobin 16.8 and hematocrit 47.9. MCV 91.3. MCH 32.0. Platelet count 836680. GFR greater than 60. Creatinine 1.0. Normal liver function testing.Pr eviously on imaging from April 2020 patient had mild splenomega ly with spleen at 14 cm. If platelet count continues to decrease would repeat imaging. [id number] Jose Mccracken MD [facility] [address] [place] [address] 12/16/2022 10:28:44 12/16/2022 11:45:01 Multiple nodules of lung [id number] R91.8 Patient with long history of pulmonary nodules. Patient follows with Pulmonary Medicine. Patient has been seen previously [facility] by Pulmonary Medicine as well as CT surgery. Bronchosco py to evaluate nodules without evidence of malignancy . CT scan of the chest without contrast on January 11, 2022 with comparison made to imaging on August 06, 2021. Findings of no mediastina l or hilar lymphadeno roland. Moderate to severe emphysemat ous changes. No focal pneumonia. No suspicious pulmonary nodule or mass. Ultrasound of the thyroid performed on May 24, 2022 with findings of right thyroid lobe 5.8 x 3.0 x 2.4 cm. Left thyroid lobe with findings of 5.8 x 2.4 x 2.0 cm. Isthmus measuring 9 mm. Small hypoechoic nodules in the right lobe that measures 3 and 4 mm. These are stable in size. Probable cyst in the thyroid isthmus. No lesions in the left thyroid lobe. Moderate thyromegal y diffusely and progressiv e thyromegal y since previous imaging on October 27, 2021. Telephone visit on December 16, 2022. Telephone visit began at 11:15 a.m. and ended at 11:35 a.m. patient recently seen by CT surgery at [facility]. Previously has been evaluated by Cardiology at [facility] for congestive heart failure. Patient has decrease in ejection fraction and difficulty with hypertensi on. During the course of last few weeks patient has had blood pressure medication altered to help lower his blood pressure. Cardiac imaging performed at [facility] with concern for cardiac nodularity . Patient had biopsy of myocardium on December 15, 2022 at [facility]. Will follow-up pathology. Patient concern for possible malignancy verses etiology of congestive heart failure. Will follow-up pathology sampling. Plan see the patient back for phone visit next few weeks. Thyroid nodule [id number] E04.1 Ultrasound of the thyroid performed on October 27, 2021. Thyroid slightly enlarged at 2.4 x 5.0 x 2.5 cm. Two nodules on the right seen. Solid hypoechoic nodule 3.0 x 3.0 x 2.0 mm consistent with TI-RADS category 4. Second nodule is 4.0 x 3.0 x 3.0 mm and thy- rads category 4. No follow-up required. Ultrasound of the thyroid performed on May 24, 2022 with findings of right thyroid lobe 5.8 x 3.0 x 2.4 cm. Left thyroid lobe with findings of 5.8 x 2.4 x 2.0 cm. Isthmus measuring 9 mm. Small hypoechoic nodules in the right lobe that measures 3 and 4 mm. These are stable in size. Probable cyst in the thyroid isthmus. No lesions in the left thyroid lobe. Moderate thyromegal y diffusely and progressiv e thyromegal y since previous imaging on October 27, 2021. During evaluation with Gastroente rology for difficulty swallowing patient had discussion of thyroid enlargemen t causing symptoms with swallowing . Patient seen by ENT at [facility] and no interventi on planned. Telephone visit on July 29, 2022. Discussed repeat CT scan of the chest and will proceed with repeat in December 2022. discussed potential evaluation with Endocrinol ogy due to thyromegal y. Patient is on a regular diet. Will consult with Endocrinol ogy if any further testing needs to be performed of thyromegal y. 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 Thrombocyt openic disorder [id number] D69.6 Labs on December 24, 2020 with white blood cell count 7.7. Red blood count 5.2. Hemoglobin 16.5 and hematocrit 47.0. Platelet count 229148. Normal cell differenti al. Patient recently seen at [facility] and had labs performed on October 15, 2021. White blood cell count 7.2. Red blood count 5.24. Hemoglobin 16.8 and hematocrit 47.9. MCV 91.3. MCH 32.0. Platelet count 084572. GFR greater than 60. Creatinine 1.0. Normal liver function testing.Pr eviously on imaging from April 2020 patient had mild splenomega ly with spleen at 14 cm. If platelet count continues to decrease would repeat imaging. Chronic sy stolic heart failure [id number] I50.22 Recent diagnosis in 2022 of congestive heart failure. Decrease in ejection fraction. Long history of hypertensi on.Myometr ium biopsy on December 15, 2022. Chronic ob structive pulmonary disease [id number] J44.9 History of COPD. Patient follows with Pulmonary Medicine. Peripheral vascular disease [id number] I73.9 Patient seen by vascular surgery at [facility]. Difficulty with peripheral circulatio n and findings of peripheral vascular disease. Patient was also diagnosed with congestive heart failure around this time. [id number] Jose Mccracken MD [facility] Oncology and Hematolog [facility] [address] [place] [address] 02/01/2023 14:16:47 02/01/2023 15:10:02 Multiple nodules of lung [id number] R91.8 Patient with long history of pulmonary nodules. Patient follows with Pulmonary Medicine. Patient has been seen previously [facility] by Pulmonary Medicine as well as CT surgery. Bronchosco py to evaluate nodules without evidence of malignancy . CT scan of the chest without contrast on January 11, 2022 with comparison made to imaging on August 06, 2021. Findings of no mediastina l or hilar lymphadeno roland. Moderate to severe emphysemat ous changes. No focal pneumonia. No suspicious pulmonary nodule or mass. Ultrasound of the thyroid performed on May 24, 2022 with findings of right thyroid lobe 5.8 x 3.0 x 2.4 cm. Left thyroid lobe with findings of 5.8 x 2.4 x 2.0 cm. Isthmus measuring 9 mm. Small hypoechoic nodules in the right lobe that measures 3 and 4 mm. These are stable in size. Probable cyst in the thyroid isthmus. No lesions in the left thyroid lobe. Moderate thyromegal y diffusely and progressiv e thyromegal y since previous imaging on October 27, 2021. CT scan of the chest performed on January 25, 2023 with comparison to imaging from May 13, 2020. Imaging performed at [facility]. No findings of axillary adenopathy . Small mediastina l lymph nodes unchanged from 2019. Emphysemat ous changes noted. Small 5 mm posterior lower lobe nodule that is stable and unchanged from CT scan from April 2020. No new masses or nodules. Heart is normal in size. No pericardia l or pleural effusion. Telephone visit on February 01, 2023. Discussed results from recent imaging. Discussed continued follow-up as neededWchasity d plan to repeat CT scan of the chest as well as abdomen in July 2023. Will follow-up. Telephone visit began at 2:45 p.m. and ended at 3:05 p.m.. Thyroid nodule [id number] E04.1 Ultrasound of the thyroid performed on October 27, 2021. Thyroid slightly enlarged at 2.4 x 5.0 x 2.5 cm. Two nodules on the right seen. Solid hypoechoic nodule 3.0 x 3.0 x 2.0 mm consistent with TI-RADS category 4. Second nodule is 4.0 x 3.0 x 3.0 mm and thy- rads category 4. No follow-up required. Ultrasound of the thyroid performed on May 24, 2022 with findings of right thyroid lobe 5.8 x 3.0 x 2.4 cm. Left thyroid lobe with findings of 5.8 x 2.4 x 2.0 cm. Isthmus measuring 9 mm. Small hypoechoic nodules in the right lobe that measures 3 and 4 mm. These are stable in size. Probable cyst in the thyroid isthmus. No lesions in the left thyroid lobe. Moderate thyromegal y diffusely and progressiv e thyromegal y since previous imaging on October 27, 2021. During evaluation with Gastroente rology for difficulty swallowing patient had discussion of thyroid enlargemen t causing symptoms with swallowing . Patient seen by ENT at [facility] and no interventi on planned. Telephone visit on July 29, [address]. [address] scan of the chest and will proceed with repeat in December 2022. discussed potential evaluation with Endocrinol ogy due to thyromegal y. Patient is on a regular diet. Will consult with Endocrinol ogy if any further testing needs to be performed of thyromegal y. Plan to have total thyroidect gideon on March 02, 2023 at [facility]. 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 Thrombocyt openic disorder [id number] D69.6 Labs on December 24, 2020 with white blood cell count 7.7. Red blood count 5.2. Hemoglobin 16.5 and hematocrit 47.0. Platelet count 664283. Normal cell differenti al. Patient recently seen at [facility] and had labs performed on October 15, 2021. White blood cell count 7.2. Red blood count 5.24. Hemoglobin 16.8 and hematocrit 47.9. MCV 91.3. MCH 32.0. Platelet count 844063. GFR greater than 60. Creatinine 1.0. Normal liver function testing. Previously on imaging from April 2020 patient had mild splenomega ly with spleen at 14 cm. If platelet count continues to decrease would repeat imaging. Stable findings on imaging from January 25, 2023. Chronic sy stolic heart failure [id number] I50.22 Recent diagnosis in 2022 of congestive heart failure. Decrease in ejection fraction. Long history of hypertensi on.Myometr ium biopsy on December 15, 2022. Chronic ob structive pulmonary disease [id number] J44.9 History of COPD. Patient follows with Pulmonary Medicine. Peripheral vascular disease [id number] I73.9 Patient seen by vascular surgery at [facility]. Difficulty with peripheral circulatio n and findings of peripheral vascular disease. Patient was also diagnosed with congestive heart failure around this time. Skin lesion [id number] L98 .9 Patient reports dark skin lesion under left arm. Patient requesting to be seen by Dermatolog y. Will make referral [id number] Jose Mccracken MD [facility] Hematolog [facility] [address] [place] [address] 03/22/2023 15:04:08 03/23/2023 06:54:50 Multiple nodules of lung [id number] R91.8 Patient with long history of pulmonary nodules. Patient follows with Pulmonary Medicine. Patient has been seen previously [facility] by Pulmonary Medicine as well as CT surgery. Bronchosco py to evaluate nodules without evidence of malignancy . CT scan of the chest without contrast on January 11, 2022 with comparison made to imaging on August 06, 2021. Findings of no mediastina l or hilar lymphadeno roland. Moderate to severe emphysemat ous changes. No focal pneumonia. No suspicious pulmonary nodule or mass. Ultrasound of the thyroid performed on May 24, 2022 with findings of right thyroid lobe 5.8 x 3.0 x 2.4 cm. Left thyroid lobe with findings of 5.8 x 2.4 x 2.0 cm. Isthmus measuring 9 mm. Small hypoechoic nodules in the right lobe that measures 3 and 4 mm. These are stable in size. Probable cyst in the thyroid isthmus. No lesions in the left thyroid lobe. Moderate thyromegal y diffusely and progressiv e thyromegal y since previous imaging on October 27, 2021. CT scan of the chest performed on January 25, 2023 with comparison to imaging from May 13, 2020. Imaging performed at [facility]. No findings of axillary adenopathy . Small mediastina l lymph nodes unchanged from 2019. Emphysemat ous changes noted. Small 5 mm posterior lower lobe nodule that is stable and unchanged from CT scan from April 2020. No new masses or nodules. Heart is normal in size. No pericardia l or pleural effusion. Thyroid nodule [id number] E04.1 Ultrasound of the thyroid performed on October 27, 2021. Thyroid slightly enlarged at 2.4 x 5.0 x 2.5 cm. Two nodules on the right seen. Solid hypoechoic nodule 3.0 x 3.0 x 2.0 mm consistent with TI-RADS category 4. Second nodule is 4.0 x 3.0 x 3.0 mm and thy- rads category 4. No follow-up required. Ultrasound of the thyroid performed on May 24, 2022 with findings of right thyroid lobe 5.8 x 3.0 x 2.4 cm. Left thyroid lobe with findings of 5.8 x 2.4 x 2.0 cm. Isthmus measuring 9 mm. Small hypoechoic nodules in the right lobe that measures 3 and 4 mm. These are stable in size. Probable cyst in the thyroid isthmus. No lesions in the left thyroid lobe. Moderate thyromegal y diffusely and progressiv e thyromegal y since previous imaging on October 27, 2021. During evaluation with Gastroente rology for difficulty swallowing patient had discussion of thyroid enlargemen t causing symptoms with swallowing . Patient seen by ENT at [facility] and no interventi on planned.Pl anned to have total thyroidect gideon on March 02, 2023 at [facility]. CT scan of the chest performed on January 25, 2023 with comparison to imaging from May 13, 2020. Imaging performed at [facility]. No findings of axillary adenopathy . Small mediastina l lymph nodes unchanged from 2019. Emphysemat ous changes noted. Small 5 mm posterior lower lobe nodule that is stable and unchanged from CT scan from April 2020. No new masses or nodules. Heart is normal in size. No pericardia l or pleural effusion. [facility] Patient reports having ultrasound of the thyroid as well as needle biopsy. Patient is unaware of results. Can request results and review. Patient reports previous evaluation Gastroente rology and felt to have extrinsic compressio n of the esophagus on recent EGD. Patient was not pleased with endocrinol ogy evaluation as he reports he was told there was nothing more they could do, and no further workup was required. Patient was told to follow-up with his primary care physician. Telephone visit began at 2:40 p.m. and ended at 2:55 p.m. On March 22, 2023. Will request results and most recent clinic note. Will review notes and see if any interventi on is needed from Hematology Oncology perspectiv e. 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 Thrombocyt openic disorder [id number] D69.6 Labs on December 24, 2020 with white blood cell count 7.7. Red blood count 5.2. Hemoglobin 16.5 and hematocrit 47.0. Platelet count 596605. Normal cell differenti al. Patient recently seen at [facility] and had labs performed on October 15, 2021. White blood cell count 7.2. Red blood count 5.24. Hemoglobin 16.8 and hematocrit 47.9. MCV 91.3. MCH 32.0. Platelet count 500966. GFR greater than 60. Creatinine 1.0. Normal liver function testing. Previously on imaging from April 2020 patient had mild splenomega ly with spleen at 14 cm. If platelet count continues to decrease would repeat imaging. Stable findings on imaging from January 25, 2023. Chronic sy stolic heart failure [id number] I50.22 Recent diagnosis in 2022 of congestive heart failure. Decrease in ejection fraction. Long history of hypertensi on.Myometr ium biopsy on December 15, 2022. Chronic ob structive pulmonary disease [id number] J44.9 History of COPD. Patient follows with Pulmonary Medicine. Peripheral vascular disease [id number] I73.9 Patient seen by vascular surgery at [facility]. Difficulty with peripheral circulatio n and findings of peripheral vascular disease. Patient was also diagnosed with congestive heart failure around this time. Lower extremity edema multifacto rial. Patient with congestive heart failure as well as peripheral vascular disease. 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 Diverticul osis of colon 074621740 K57.30 Diverticulitis 480895407 K57.92 Umbilical hernia [id number] [id number] K42.9 Health Concerns Section Related Observation LastModified by Organization Detai ls LastModified Time None Recorded Concern Status LastModified by Organization Details LastModified Time None Recorded Advance Directives Directive Y: Payers Encounter Date Sequence Insurance Name Policy Number Policy Morton Covered Member ID Morton Member ID Guarantor Name 07/29/2022 1 [employer] [place] ([place]ICA[place]MO[place] [id number] Luca Kauffman [id number] Luca Kauffman 12/16/2022 1 [employer] [place]7 Luca Kauffman [id number] Luca Kauffman 02/01/2023 1 [employer] [place]!7 Luca Johnsonn [id number] Luca Kauffman 03/22/2023 1 [employer] [place]7 Luca Kauffman [id number] Luca Kauffman 11/06/2023 1 [employer] [place] ([place] Q!7 Luca Kauffman [id number] Luca Kauffman Notes Date Note Type Note Provider Name and Address Organization Details Recorded Time 07/29/2022 text/html 56 yo M returns for evaluation of pulmonary nodule. Patient with history of lung nodules and had CT scan of the chest on May 13, 2020. Comparison imaging was August 14, 2019 and PET scan performed on October 11, 2019.Findings on CT scan of the chest on May 13, 2020 with no significant change in mediastinal lymph nodes. Nodes are present in the pretracheal precarinal and AP window. Single largest lymph node is in the precarinal region and measures 1.6 cm. Not significantly changed in size. Findings of central lobar emphysema noted. Scattered noncalcified nodules in the left lower lobe as well as subpleural nodule. Mild gynecomastia noted. Mild splenomegaly with spleen size at 14 cm.Patient with positive family history of lung cancer.Patient being evaluated by Gastroenterology for liver disease. Previous liver biopsy with concerns for cirrhosis..In 2019 the patient reports being seen at [facility] by CT surgery as well as Pulmonary Medicine. Patient had bronchoscopy for evaluation of pulmonary nodules. Have requested records. Patient also reports having surgery with a nodule removed. Will follow-up pathology evaluation.Records from [facility] obtained:PET scan performed on October 11, 2019 no hypermetabolic focus in the head and neck. Few prominent bilateral upper cervical lymph nodes but no hypermetabolic activity. Left level 2A lymph node measures 0.9 x 0.8 cm. No hypermetabolic activity. Left level 2 B lymph node measuring 0.9 x 0.6 cm. No signs of hypermetabolism. Mildly hypermetabolic 1.5 x 1.3 cm right lower paratracheal lymph node with an SUV of 3.7. AP window lymph node with size of 1.1 x 0.9 cm with SUV of 2.4. Overall sub cm non hypermetabolic bilateral lung nodules favored to be inflammatory in the setting of emphysema.Patient following PET scan had EBUS performed at [facility] with Pulmonary Medicine. Lymph nodes sampled was 4 R lymph node from previous PET scan abnormality. Pathology was nondiagnostic.Patient was then evaluated by CT surgery for mediastinoscopy which was done on December 04, 2019.Pathology from EBUS with lymph node 4R with findings of lymphocytes and lymphoid stroma. No tumor seen. Station 12 are with lymphocytes and lymphoid stroma seen. No evidence of malignancy.Pathology from mediastinoscopy on December 04, 2019 with resection of lymph node for are. Benign lymph node with marked reactive sinusoidal hyperplasia. Partial fat replacement. No evidence of clonal or aberrant population on flow cytometry. Mix lymph node lymphocyte population. Normal CD4 and CD8 ratio. No aberrant T-cell population. B cells with polyclonal surface immunoglobulin expression not consistent with malignancy.CT scan of the chest without contrast performed on August 01, 2020. Imaging without IV contrast. Multiple blebs in the upper lobes and apices. Calcified granuloma in the right upper lobe laterally. Mild scar in the inferior medial right middle lobe. 2 mm noncalcified nodule in the peripheral lateral segment of the right middle lobe. 6 mm noncalcified nodule in the left lower lobe posteriorly. 2 mm nodule in the left lower lobe anteriorly and laterally. 4 mm noncalcified nodule along the left major fissure. Mildly prominent interstitial pattern suggesting chronic lung disease. Mediastinal lymph node that is 1.2 cm. No evidence of pleural effusion. No enlarged axillary lymph nodes.Labs on December 24, 2020 with white blood cell count 7.7. Red blood count 5.2. Hemoglobin 16.5 and hematocrit 47.0. Platelet count 702156. Normal cell differential.Patient recently seen at [facility] and had labs performed on October 15, 2021. White blood cell count 7.2. Red blood count 5.24. Hemoglobin 16.8 and hematocrit 47.9. MCV 91.3. MCH 32.0. Platelet count 349904. GFR greater than 60. Creatinine 1.0. Normal liver function testing.Ultrasound of the thyroid performed on October 27, 2021. Thyroid slightly enlarged at 2.4 x 5.0 x 2.5 cm. Two nodules on the right seen. Solid hypoechoic nodule 3.0 x 3.0 x 2.0 mm consistent with TI-RADS category 4. Second nodule is 4.0 x 3.0 x 3.0 mm and tie rads category 4. No follow-up required. CT scan of the chest without contrast on January 11, 2022 with comparison made to imaging on August 06, 2021. Findings of no mediastinal or hilar lymphadenopathy. Moderate to severe emphysematous changes. No focal pneumonia. No suspicious pulmonary nodule or mass. Ultrasound of the thyroid performed on May 24, 2022 with findings of right thyroid lobe 5.8 x 3.0 x 2.4 cm. Left thyroid lobe with findings of 5.8 x 2.4 x 2.0 cm. Isthmus measuring 9 mm. Small hypoechoic nodules in the right lobe that measures 3 and 4 mm. These are stable in size. Probable cyst in the thyroid isthmus. No lesions in the left thyroid lobe. Moderate thyromegaly diffusely and progressive thyromegaly since previous imaging on October 27, 2021. During evaluation with Gastroenterology for difficulty swallowing patient had discussion of thyroid enlargement causing symptoms with swallowing. Patient seen by ENT at [facility] and no intervention planned. Telephone visit on July 29, 2022. Discussed repeat CT scan of the chest and will proceed with repeat in December 2022. discussed potential evaluation with Endocrinology due to thyromegaly. Patient is on a regular diet. Will consult with Endocrinology if any further testing needs to be performed of thyromegaly. Jose Mccracken MD [address], [place], [address], [place] - [facility] - [place] 07/29/2022 12:05:46 12/16/2022 text/html 57 yo M returns for evaluation of pulmonary nodule. Patient with history of lung nodules and had CT scan of the chest on May 13, 2020. Comparison imaging was August 14, 2019 and PET scan performed on October 11, 2019.Findings on CT scan of the chest on May 13, 2020 with no significant change in mediastinal lymph nodes. Nodes are present in the pretracheal precarinal and AP window. Single largest lymph node is in the precarinal region and measures 1.6 cm. Not significantly changed in size. Findings of central lobar emphysema noted. Scattered noncalcified nodules in the left lower lobe as well as subpleural nodule. Mild gynecomastia noted. Mild splenomegaly with spleen size at 14 cm.Patient with positive family history of lung cancer. In 2019 the patient reports being seen at [facility] by CT surgery as well as Pulmonary Medicine. Patient had bronchoscopy for evaluation of pulmonary nodules. Have requested records. Patient also reports having surgery with a nodule removed. Will follow-up pathology evaluation.Records from [facility] hospital obtained:PET scan performed on October 11, 2019 no hypermetabolic focus in the head and neck. Few prominent bilateral upper cervical lymph nodes but no hypermetabolic activity. Left level 2A lymph node measures 0.9 x 0.8 cm. No hypermetabolic activity. Left level 2 B lymph node measuring 0.9 x 0.6 cm. No signs of hypermetabolism. Mildly hypermetabolic 1.5 x 1.3 cm right lower paratracheal lymph node with an SUV of 3.7. AP window lymph node with size of 1.1 x 0.9 cm with SUV of 2.4. Overall sub cm non hypermetabolic bilateral lung nodules favored to be inflammatory in the setting of emphysema.Patient following PET scan had EBUS performed at [facility] with Pulmonary Medicine. Lymph nodes sampled was 4 R lymph node from previous PET scan abnormality. Pathology was nondiagnostic.Patient was then evaluated by CT surgery for mediastinoscopy which was done on December 04, 2019.Pathology from EBUS with lymph node 4R with findings of lymphocytes and lymphoid stroma. No tumor seen. Station 12 are with lymphocytes and lymphoid stroma seen. No evidence of malignancy.Pathology from mediastinoscopy on December 04, 2019 with resection of lymph node for are. Benign lymph node with marked reactive sinusoidal hyperplasia. Partial fat replacement. No evidence of clonal or aberrant population on flow cytometry. Mix lymph node lymphocyte population. Normal CD4 and CD8 ratio. No aberrant T-cell population. B cells with polyclonal surface immunoglobulin expression not consistent with malignancy.CT scan of the chest without contrast performed on August 01, 2020. Imaging without IV contrast. Multiple blebs in the upper lobes and apices. Calcified granuloma in the right upper lobe laterally. Mild scar in the inferior medial right middle lobe. 2 mm noncalcified nodule in the peripheral lateral segment of the right middle lobe. 6 mm noncalcified nodule in the left lower lobe posteriorly. 2 mm nodule in the left lower lobe anteriorly and laterally. 4 mm noncalcified nodule along the left major fissure. Mildly prominent interstitial pattern suggesting chronic lung disease. Mediastinal lymph node that is 1.2 cm. No evidence of pleural effusion. No enlarged axillary lymph nodes.Labs on December 24, 2020 with white blood cell count 7.7. Red blood count 5.2. Hemoglobin 16.5 and hematocrit 47.0. Platelet count 720347. Normal cell differential.Patient recently seen at [facility] and had labs performed on October 15, 2021. White blood cell count 7.2. Red blood count 5.24. Hemoglobin 16.8 and hematocrit 47.9. MCV 91.3. MCH 32.0. Platelet count 621711. GFR greater than 60. Creatinine 1.0. Normal liver function testing.Ultrasound of the thyroid performed on October 27, 2021. Thyroid slightly enlarged at 2.4 x 5.0 x 2.5 cm. Two nodules on the right seen. Solid hypoechoic nodule 3.0 x 3.0 x 2.0 mm consistent with TI-RADS category 4. Second nodule is 4.0 x 3.0 x 3.0 mm and tie rads category 4. No follow-up required. CT scan of the chest without contrast on January 11, 2022 with comparison made to imaging on August 06, 2021. Findings of no mediastinal or hilar lymphadenopathy. Moderate to severe emphysematous changes. No focal pneumonia. No suspicious pulmonary nodule or mass. Ultrasound of the thyroid performed on May 24, 2022 with findings of right thyroid lobe 5.8 x 3.0 x 2.4 cm. Left thyroid lobe with findings of 5.8 x 2.4 x 2.0 cm. Isthmus measuring 9 mm. Small hypoechoic nodules in the right lobe that measures 3 and 4 mm. These are stable in size. Probable cyst in the thyroid isthmus. No lesions in the left thyroid lobe. Moderate thyromegaly diffusely and progressive thyromegaly since previous imaging on October 27, 2021. During evaluation with Gastroenterology for difficulty swallowing patient had discussion of thyroid enlargement causing symptoms with swallowing. Patient seen by ENT at [facility] and no intervention planned. Telephone visit on July 29, 2022. Discussed repeat CT scan of the chest and will proceed with repeat in December 2022. discussed potential evaluation with Endocrinology due to thyromegaly. Telephone visit on December 16, 2022. Telephone visit began at 11:15 a.m. and ended at 11:35 a.m. patient recently seen by CT surgery at [facility]. Previously has been evaluated by Cardiology at [facility] for congestive heart failure. Patient has decrease in ejection fraction and difficulty with hypertension. During the course of last few weeks patient has had blood pressure medication altered to help lower his blood pressure. Cardiac imaging performed at [facility] with concern for cardiac nodularity. Patient had biopsy of myocardium on December 15, 2022 at [facility]. Will follow-up pathology. Patient concern for possible malignancy verses etiology of congestive heart failure. Will follow-up pathology sampling. Plan see the patient back for phone visit next few weeks. Jose Mccracken MD [address], [place], [address], [place] [facility] - [place] 12/16/2022 11:43:41 02/01/2023 text/html 57 yo M returns for evaluation of pulmonary nodule. Patient with history of lung nodules and had CT scan of the chest on May 13, 2020. Comparison imaging was August 14, 2019 and PET scan performed on October 11, 2019.Findings on CT scan of the chest on May 13, 2020 with no significant change in mediastinal lymph nodes. Nodes are present in the pretracheal precarinal and AP window. Single largest lymph node is in the precarinal region and measures 1.6 cm. Not significantly changed in size. Findings of central lobar emphysema noted. Scattered noncalcified nodules in the left lower lobe as well as subpleural nodule. Mild gynecomastia noted. Mild splenomegaly with spleen size at 14 cm.Patient with positive family history of lung cancer. In 2019 the patient reports being seen at [facility] by CT surgery as well as Pulmonary Medicine. Patient had bronchoscopy for evaluation of pulmonary nodules. Have requested records. Patient also reports having surgery with a nodule removed. Will follow-up pathology evaluation.Records from [facility] obtained:PET scan performed on October 11, 2019 no hypermetabolic focus in the head and neck. Few prominent bilateral upper cervical lymph nodes but no hypermetabolic activity. Left level 2A lymph node measures 0.9 x 0.8 cm. No hypermetabolic activity. Left level 2 B lymph node measuring 0.9 x 0.6 cm. No signs of hypermetabolism. Mildly hypermetabolic 1.5 x 1.3 cm right lower paratracheal lymph node with an SUV of 3.7. AP window lymph node with size of 1.1 x 0.9 cm with SUV of 2.4. Overall sub cm non hypermetabolic bilateral lung nodules favored to be inflammatory in the setting of emphysema.Patient following PET scan had EBUS performed at [facility] with Pulmonary Medicine. Lymph nodes sampled was 4 R lymph node from previous PET scan abnormality. Pathology was nondiagnostic.Patient was then evaluated by CT surgery for mediastinoscopy which was done on December 04, 2019.Pathology from EBUS with lymph node 4R with findings of lymphocytes and lymphoid stroma. No tumor seen. Station 12 are with lymphocytes and lymphoid stroma seen. No evidence of malignancy.Pathology from mediastinoscopy on December 04, 2019 with resection of lymph node for are. Benign lymph node with marked reactive sinusoidal hyperplasia. Partial fat replacement. No evidence of clonal or aberrant population on flow cytometry. Mix lymph node lymphocyte population. Normal CD4 and CD8 ratio. No aberrant T-cell population. B cells with polyclonal surface immunoglobulin expression not consistent with malignancy.CT scan of the chest without contrast performed on August 01, 2020. Imaging without IV contrast. Multiple blebs in the upper lobes and apices. Calcified granuloma in the right upper lobe laterally. Mild scar in the inferior medial right middle lobe. 2 mm noncalcified nodule in the peripheral lateral segment of the right middle lobe. 6 mm noncalcified nodule in the left lower lobe posteriorly. 2 mm nodule in the left lower lobe anteriorly and laterally. 4 mm noncalcified nodule along the left major fissure. Mildly prominent interstitial pattern suggesting chronic lung disease. Mediastinal lymph node that is 1.2 cm. No evidence of pleural effusion. No enlarged axillary lymph nodes.Labs on December 24, 2020 with white blood cell count 7.7. Red blood count 5.2. Hemoglobin 16.5 and hematocrit 47.0. Platelet count [id number]. Normal cell differential.Patient recently seen at [facility] and had labs performed on October 15, 2021. White blood cell count 7.2. Red blood count 5.24. Hemoglobin 16.8 and hematocrit 47.9. MCV 91.3. MCH 32.0. Platelet count 260525. GFR greater than 60. Creatinine 1.0. Normal liver function testing.Ultrasound of the thyroid performed on October 27, 2021. Thyroid slightly enlarged at 2.4 x 5.0 x 2.5 cm. Two nodules on the right seen. Solid hypoechoic nodule 3.0 x 3.0 x 2.0 mm consistent with TI-RADS category 4. Second nodule is 4.0 x 3.0 x 3.0 mm and tie rads category 4. No follow-up required. CT scan of the chest without contrast on January 11, 2022 with comparison made to imaging on August 06, 2021. Findings of no mediastinal or hilar lymphadenopathy. Moderate to severe emphysematous changes. No focal pneumonia. No suspicious pulmonary nodule or mass. Ultrasound of the thyroid performed on May 24, 2022 with findings of right thyroid lobe 5.8 x 3.0 x 2.4 cm. Left thyroid lobe with findings of 5.8 x 2.4 x 2.0 cm. Isthmus measuring 9 mm. Small hypoechoic nodules in the right lobe that measures 3 and 4 mm. These are stable in size. Probable cyst in the thyroid isthmus. No lesions in the left thyroid lobe. Moderate thyromegaly diffusely and progressive thyromegaly since previous imaging on October 27, 2021. During evaluation with Gastroenterology for difficulty swallowing patient had discussion of thyroid enlargement causing symptoms with swallowing. Patient seen by ENT at [facility] and no intervention planned. Telephone visit on July 29, 2022. Discussed repeat CT scan of the chest and will proceed with repeat in December 2022. discussed potential evaluation with Endocrinology due to thyromegaly. Telephone visit on December 16, 2022. Telephone visit began at 11:15 a.m. and ended at 11:35 a.m. patient recently seen by CT surgery at [facility]. Previously has been evaluated by Cardiology at [facility] for congestive heart failure. Patient has decrease in ejection fraction and difficulty with hypertension. During the course of last few weeks patient has had blood pressure medication altered to help lower his blood pressure. Cardiac imaging performed at [facility] with concern for cardiac nodularity. Patient had biopsy of myocardium on December 15, 2022 at [facility]. Will follow-up pathology. CT scan of the chest performed on January 25, 2023 with comparison to imaging from May 13, 2020. Imaging performed at [facility]. No findings of axillary adenopathy. Small mediastinal lymph nodes unchanged from 2020. Emphysematous changes noted. Small 5 mm posterior lower lobe nodule that is stable and unchanged from CT scan from April 2020. No new masses or nodules. Heart is normal in size. No pericardial or pleural effusion. Telephone visit on February 01, 2023. Discussed results from recent imaging. Discussed continued follow-up as needed Jose Mccracken MD [id number] [facility], [place], [address], [place] - [facility] - [place] 02/01/2023 15:08:02 03/22/2023 text/html 57 yo M returns for evaluation of pulmonary nodule. Patient with history of lung nodules and had CT scan of the chest on May 13, 2020. Comparison imaging was August 14, 2019 and PET scan performed on October 11, 2019.Findings on CT scan of the chest on May 13, 2020 with no significant change in mediastinal lymph nodes. Nodes are present in the pretracheal precarinal and AP window. Single largest lymph node is in the precarinal region and measures 1.6 cm. Not significantly changed in size. Findings of central lobar emphysema noted. Scattered noncalcified nodules in the left lower lobe as well as subpleural nodule. Mild gynecomastia noted. Mild splenomegaly with spleen size at 14 cm.Patient with positive family history of lung cancer. In 2019 the patient reports being seen at [facility] by CT surgery as well as Pulmonary Medicine. Patient had bronchoscopy for evaluation of pulmonary nodules. Have requested records. Patient also reports having surgery with a nodule removed. Will follow-up pathology evaluation.Records from [facility] obtained:PET scan performed on October 11, 2019 no hypermetabolic focus in the head and neck. Few prominent bilateral upper cervical lymph nodes but no hypermetabolic activity. Left level 2A lymph node measures 0.9 x 0.8 cm. No hypermetabolic activity. Left level 2 B lymph node measuring 0.9 x 0.6 cm. No signs of hypermetabolism. Mildly hypermetabolic 1.5 x 1.3 cm right lower paratracheal lymph node with an SUV of 3.7. AP window lymph node with size of 1.1 x 0.9 cm with SUV of 2.4. Overall sub cm non hypermetabolic bilateral lung nodules favored to be inflammatory in the setting of emphysema.Patient following PET scan had EBUS performed at [facility] with Pulmonary Medicine. Lymph nodes sampled was 4 R lymph node from previous PET scan abnormality. Pathology was nondiagnostic.Patient was then evaluated by CT surgery for mediastinoscopy which was done on December 04, 2019.Pathology from EBUS with lymph node 4R with findings of lymphocytes and lymphoid stroma. No tumor seen. Station 12 are with lymphocytes and lymphoid stroma seen. No evidence of malignancy.Pathology from mediastinoscopy on December 04, 2019 with resection of lymph node for are. Benign lymph node with marked reactive sinusoidal hyperplasia. Partial fat replacement. No evidence of clonal or aberrant population on flow cytometry. Mix lymph node lymphocyte population. Normal CD4 and CD8 ratio. No aberrant T-cell population. B cells with polyclonal surface immunoglobulin expression not consistent with malignancy.CT scan of the chest without contrast performed on August 01, 2020. Imaging without IV contrast. Multiple blebs in the upper lobes and apices. Calcified granuloma in the right upper lobe laterally. Mild scar in the inferior medial right middle lobe. 2 mm noncalcified nodule in the peripheral lateral segment of the right middle lobe. 6 mm noncalcified nodule in the left lower lobe posteriorly. 2 mm nodule in the left lower lobe anteriorly and laterally. 4 mm noncalcified nodule along the left major fissure. Mildly prominent interstitial pattern suggesting chronic lung disease. Mediastinal lymph node that is 1.2 cm. No evidence of pleural effusion. No enlarged axillary lymph nodes.Labs on December 24, 2020 with white blood cell count 7.7. Red blood count 5.2. Hemoglobin 16.5 and hematocrit 47.0. Platelet count [id number]. Normal cell differential.Patient recently seen at [facility] and had labs performed on October 15, 2021. White blood cell count 7.2. Red blood count 5.24. Hemoglobin 16.8 and hematocrit 47.9. MCV 91.3. MCH 32.0. Platelet count [id number]. GFR greater than 60. Creatinine 1.0. Normal liver function testing.Ultrasound of the thyroid performed on October 27, 2021. Thyroid slightly enlarged at 2.4 x 5.0 x 2.5 cm. Two nodules on the right seen. Solid hypoechoic nodule 3.0 x 3.0 x 2.0 mm consistent with TI-RADS category 4. Second nodule is 4.0 x 3.0 x 3.0 mm and tie rads category 4. No follow-up required. CT scan of the chest without contrast on January 11, 2022 with comparison made to imaging on August 06, 2021. Findings of no mediastinal or hilar lymphadenopathy. Moderate to severe emphysematous changes. No focal pneumonia. No suspicious pulmonary nodule or mass. Ultrasound of the thyroid performed on May 24, 2022 with findings of right thyroid lobe 5.8 x 3.0 x 2.4 cm. Left thyroid lobe with findings of 5.8 x 2.4 x 2.0 cm. Isthmus measuring 9 mm. Small hypoechoic nodules in the right lobe that measures 3 and 4 mm. These are stable in size. Probable cyst in the thyroid isthmus. No lesions in the left thyroid lobe. Moderate thyromegaly diffusely and progressive thyromegaly since previous imaging on October 27, 2021. During evaluation with Gastroenterology for difficulty swallowing patient had discussion of thyroid enlargement causing symptoms with swallowing. Patient seen by ENT at [facility] and no intervention planned. Discussed repeat CT scan of the chest and will proceed with repeat in December 2022. discussed potential evaluation with Endocrinology due to thyromegaly. patient recently seen by CT surgery at [facility]. Previously has been evaluated by Cardiology at [facility] for congestive heart failure. Patient has decrease in ejection fraction and difficulty with hypertension. During the course of last few weeks patient has had blood pressure medication altered to help lower his blood pressure. Cardiac imaging performed at [facility] with concern for cardiac nodularity. Patient had biopsy of myocardium on December 15, 2022 at [facility]. Will follow-up pathology. CT scan of the chest performed on January 25, 2023 with comparison to imaging from May 13, 2020. Imaging performed at [facility]. No findings of axillary adenopathy. Small mediastinal lymph nodes unchanged from 2019. Emphysematous changes noted. Small 5 mm posterior lower lobe nodule that is stable and unchanged from CT scan from April 2020. No new masses or nodules. Heart is normal in size. No pericardial or pleural effusion. Following image of the chest on CT scan with imaging performed in December 2022 patient was noted to have thyromegaly. Patient was recently seen by Endocrinology [facility]. Patient reports having ultrasound of the thyroid as well as needle biopsy. Patient is unaware of results. Can request results and review. Patient reports previous evaluation Gastroenterology and felt to have extrinsic compression of the esophagus on recent EGD. Patient was not pleased with endocrinology evaluation as he reports he was told there was nothing more they could do, and no further workup was required. Patient was told to follow-up with his primary care physician. Telephone visit began at 2:40 p.m. and ended at 2:55 p.m. On March 22, 2023. Will request results and most recent clinic note. Will review notes and see if any intervention is needed from Hematology Oncology perspective. Jose Mccracken MD [address] [facility], [place], [address], [place] - [facility] - [place] 03/22/2023 15:13:00 11/06/2023 text/html CURRENT (11/06/23 Evelia Diaz): Ms. Kauffman is a 57-year-old male who was referred by Apolinar Mariscal for diverticulitis. The patient presented to [facility] with abdominal pain. CT scan performed on 10/06/2023 revealed sigmoid diverticulitis. He was started on antibiotics for treatment. He reports since that time he was started on antibiotics a second time as his lower abdominal pain had not subsided. He is still taking this round of antibiotics. He has an appointment with Dr. Landry at [facility] tomorrow for evaluation of his hernias found on CT scan at that time. 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 Repeat was recommended in 3 years. The patient reports he previously stopped his PPI therapy as he has minimal acid reflux symptoms. He denies nausea, vomiting, hematemesis, hematochezia or melena. BOUBACAR DIAZ MSN, [employer], MICROBIOLOGY [employer]IL SCIENTIST-C [id number] , [place], [address], [facility] - [place] 11/06/2023 16:37:59
--- NOTE | 2024-09-02 14:03 | XR_ITS ---
FINAL REPORT CLINICAL HISTORY: Left ankle pain pt states neuropathy bilat feet FINDINGS: LEFT ANKLE Three views demonstrate no acute fracture or dislocation. The mortise is intact. The soft tissues are unremarkable. IMPRESSION: No acute bony abnormality. Reviewed, Interpreted and Dictated by Henry Silva MD Transcribed by Lynn Childers Authenticated and [facility]
== END 2024-09-02 23:59 | disposition home or self-care (01) ==
LOC: RAD 13:59
PROVIDERS: PCP Nurse Practitioner; Visit Provider Nurse Practitioner
DX: M25.572 Pain in left ankle and joints of left foot (principal)
CPT/HCPCS: 73610

== ENCOUNTER 2024-10-21 14:04 | Emergency (ER) | payer MEDICAID, SELFPAY ==
[2024-10-21 14:20] VITALS: BP 205/111; PULSE 88; RESP 20; TEMP 36.6; O2SAT 97; BMI 31.4
--- NOTE | 2024-10-21 14:36 | ECG_ITS ---
APPROVED REPORT Exam: Resting ECG HR:85 bpm ECG Measurements Heart Rate 85 AXES MD 192 P 77 QRSd 105 QRS 37 QT 390 T 72 QTc 432 Conclusion SINUS RHYTHM WITH FREQUENT ECTOPIC PREMATURE COMPLEXES No STEMI Electronically signed by : KARYN MELGAR, 10/22/2024 06:34:24
--- NOTE | 2024-10-21 14:51 | XR_ITS ---
FINAL REPORT CLINICAL HISTORY: SOB/CP COMPARISON: 04/24/2024 FINDINGS: A portable view of the chest was obtained. Cardiac and mediastinal silhouettes are within normal limits. The lungs are clear. There is no pleural effusion or pneumothorax. IMPRESSION: No acute process on this portable exam. Reviewed, Interpreted and Dictated by Soni Tamayo MD Transcribed by Neris Mcknight Authenticated and [facility]
[2024-10-21 14:56] LABS: Lactate Venous 1.6 mmol/L (0.4-2.0); VBG Base Excess -2.6 mmol/L (-2.4-2.3); VBG HCO3 23.1 mmol/L (23-30); VBG Oxygen Saturation 78.5 % (50-70); VBG PCO2 43.2 mmol/L (35-51); VBG PH 7.35 mmol/L (7.31-7.41); VBG PO2 41.6 mmol/L (28-40); VBG Total CO2 24.4 mmol/L (23-27)
[2024-10-21 14:57] LABS: Basophils # 0.1 K/mm3 (0-0.2); Eosinophils # 0.2 Kmm3 (0.0-0.4); Hematocrit 51.3 % (42.0-52.0); Hemoglobin 17.7 g/dL (14.1-18.0); Immature Granulocytes # 0.03 10^3uL; Immature Granulocytes % 0.4 %; Lymphocytes # 1.9 K/mm3 (0.7-4.5); Lymphocytes % 24.5 % (10-50); Mean Corpuscular HGB Conc 34.5 g/dL (31.8-35.4); Mean Corpuscular Hemoglobin 31.9 pg (27.0-31.2); Mean Corpuscular Volume 92.6 fl (80-94); Mean Platelet Volume 12.7 fl (7.4-10.4); Monocytes # 0.6 K/mm3 (0.1-1.0); Monocytes % 7.6 % (1.7-9.3); Neutrophils # 4.9 K/mm3 (1.8-7.8); Neutrophils % 63.5 % (37.0-80.0); Nucleated Red Blood Cells # 0 10^3/uL; Nucleated Red Blood Cells % 0 %; Platelet Count 137 K/mm3 (142-424); Red Blood Count 5.54 M/mm3 (4.60-6.20); Red Cell Distribution Width 12.5 % (11.5-17.5); Red Cell Distribution Width-SD 42.9 fL; White Blood Count 7.7 K/mm3 (4.8-10.8)
[2024-10-21 15:03] LABS: Alanine Aminotransferase 37 U/L (12-78); Albumin Level 4.6 g/dl (3.5-5.0); Albumin/Globulin Ratio 1.6 (1.1-1.8); Alkaline Phosphatase 138 U/L (38-126); Anion Gap 9.6 mEq/L (5-15); Aspartate Amino Transferase 34 U/L (17-59); Bilirubin,Total 0.8 mg/dl (0.2-1.3); Blood Urea Nitrogen 11 mg/dl (9-20); Carbon Dioxide 31 mmol/L (22.0-30.0); Chloride 104 mmol/L (98-107); Creatinine Clearance Estimated 94 mL/min (50-200); Estimated Glomerular Filt Rate 57 ml/min (>60); GFR (African American) 69 ML/MIN (>60); Globulin 2.9 g/dL (1.3-3.2); Glucose 100 mg/dl (74-100); Potassium 3.6 mmoL/L (3.5-5.1); Sodium 141 mmol/L (136-145); Total Protein,Serum 7.5 g/dl (6.3-8.2)
[2024-10-21 15:16] VITALS: BP 183/106; PULSE 57; RESP 17; O2SAT 96
[2024-10-21 15:19] LABS: Troponin I < 0.01 ng/ml (0.00-0.034)
--- NOTE | 2024-10-21 15:26 | ED_ITS ---
Discharge Plan Disposition Patient Disposition: Home, Self-Care Condition: Good Prescriptions Prescriptions: No Action diclofenac sodium 1 % gel 1 ea topical DAILY nifedipine 90 mg tablet extended release 24hr 90 mg PO DAILY metoprolol succinate 100 mg tablet extended release 24 hr 100 mg PO DAILY hydrocodone-acetaminophen 5-325 mg tablet 1 tab PO Q8H PRN (Reason: Pain) metoclopramide HCl 10 mg tablet 10 mg PO QAC Qty: 90 3RF Rx Instructions: administer 30 minutes before meals tamsulosin [Flomax] 0.4 mg capsule 0.4 mg PO DAILY 90 Days Qty: 90 0RF nitroglycerin 0.4 mg tablet, sublingual 0.4 mg SUBLINGUAL Q5M PRN (Reason: Chest Pain) Qty: 20 0RF pantoprazole 40 mg tablet,delayed release (DR/EC) 40 mg PO DAILY benzonatate 100 mg capsule 100 mg PO TID PRN (Reason: cough) Qty: 30 0RF epinephrine 0.3 mg/0.3 mL auto-injector 0.3 mg IM Q4H PRN (Reason: anaphylaxis) Qty: 2 0RF metronidazole 500 mg tablet 500 mg PO Q8H Qty: 30 0RF metoclopramide HCl 10 mg tablet 10 mg PO QAC Qty: 90 0RF Rx Instructions: Please take 1 tablet p.o. AC before meals isosorbide mononitrate 60 mg tablet extended release 24 hr 120 mg PO DAILY ondansetron 4 mg tablet,disintegrating 4 mg PO Q8H PRN (Reason: nausea and vomiting) 5 Days Qty: 10 0RF metolazone 5 mg tablet 5 mg PO DAILY cyclobenzaprine 5 mg tablet 5 mg PO DAILY rosuvastatin 40 mg tablet 40 mg PO DAILY Referrals Follow up/Referrals: Inna Serrano APRN [Primary Care Provider, Medical] - See instructions Activity Restrictions/Add. Instructions Additional Instructions/Restrictions: I recommend strongly following up with cardiology for review of your blood pressure management and blood pressure records. If you have any new or worsening signs or symptoms follow-up with your PCP return to the ER as needed. Clinical Impressions Clinical Impression: Asymptomatic hypertension Print Language Print Language: Upper Sorbian Discharge ED Provider: Altaf Ayala [facility] <ELÍAS Vasquez - Last Filed: 10/21/24 19:03> General Chief Complaint: Chest Pain Stated Complaint: HIGH BP- sent by Dr. Jose Time Seen by Provider: 10/21/24 14:56 Mode of Arrival: Ambulatory Source of Information: Patient Description of Symptoms (Recalled from ER Triage Doc. by RN): Pt was at follow up appt with Dr Suero today and sent here due to his BP. Pt has hx of htn his pressure is currently 205/111. Pt O2 is 97% but states his chest feels heavy but he believes its from the chest nodules he has that his oncologist is watching. History of Present Illness HPI narrative: Patient was sent from Dr. Jose's office for elevated blood pressure. Patient reports that he has significant past medical history for CHF coronary artery disease hypertension longstanding pulmonary nodule history of smoking. He was at Dr. Joes's office for routine follow-up for his bladder and kidney issues and it was noted that he was significantly hypertensive. Patient does not routinely check his blood pressure but did note that it has been in the 200s as most recently as this week. 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 He follows with cardiology in [place]. Patient currently denies dyspnea cardiac chest pain fever chills hemoptysis hematochezia melena nausea vomiting diarrhea. Related Data Home Medications ?Medication ?Instructions ?Recorded ?Confirmed isosorbide mononitrate 60 mg 120 mg PO DAILY HEART 12/1110/21/24 tablet,extended release 24 hr cyclobenzaprine 5 mg tablet 5 mg PO DAILY 07/17/2307/16 metolazone 5 mg tablet 5 mg PO DAILY 07/17/2310/21 rosuvastatin 40 mg tablet 40 mg PO DAILY 07/17/2307/16 diclofenac sodium 1 % topical gel 1 ea topical DAILY 0 09/28/23 10/21/24 metoprolol succinate 100 mg 100 mg PO DAILY 09/28/23 0 10/21/24 tablet,extended release 24 hr nifedipine 90 mg tablet,extended 90 mg PO DAILY 10/21/24 release 24 hr hydrocodone 5 mg-acetaminophen 325 1 tab PO Q8H PRN Pa in 10/24/23 10/21/24 mg tablet pantoprazole 40 mg tablet,delayed 40 mg PO DAILY 11/0610/21/24 release Previous Rx's ?Medication ?Instructions ?Recorded nitroglycerin 0.4 mg sublingual 0.4 mg sublingual Q5M PRN Chest 07/02/19 tablet Pain #20 tabs epinephrine 0.3 mg/0.3 mL 0.3 mg (0.3 mL) IM Q4H PRN 0 10/02/23 injection, auto-injector anaphylaxis #2 ea ondansetron 4 mg disintegrating 4 mg PO Q8H PRN nausea and 10/06/23 tablet vomiting 5 days #10 tabs metronidazole 500 mg tablet 500 mg PO Q8H #30 tabs benzonatate 100 mg capsule 100 mg PO TID PRN cough #30 caps 01/11/24 metoclopramide HCl 10 mg tablet 10 mg PO QAC #90 tabs 02/14/24 metoclopramide HCl 10 mg tablet 10 mg PO QAC #90 tabs 03/11/24 tamsulosin 0.4 mg capsule (Flomax) 0.4 mg PO DAILY 90 days #90 caps 10/21/24 Allergies Allergy/AdvReac Type Severity Reaction Status Date / Time ciprofloxacin Allergy Severe S-DIFF. Verified 10/21/24 13:10 BREATHING; SWELLING Corticosteroids Allergy Severe S-SWELLS-OR Verified 10/21/24 13:10 (Glucocorticoids) AL/THROAT erythromycin base Allergy Severe S-DIFF. Verified 10/21/24 13:10 BREATHING; SWELLING Fish Containing Products Allergy Severe S-DIFF. Verified 10/21/24 13:10 (From SEAFOOD (F/D)) BREATHING; SWELLING iopamidol Allergy Severe S-DIFF. Verified 10/21/24 13:10 BREATHING; SWELLING lisinopril Allergy Severe Swelling Verified 10/21/24 13:10 of Lip/Tongue/Throat losartan Allergy Severe bleeding Verified 10/21/24 13:10 kidneys NSAIDS (Non-Steroidal Allergy Severe BLEEDING Verified 10/21/24 13:10 Anti-Inflamma Penicillins Allergy Severe S-DIFF. Verified 10/21/24 13:10 BREATHING; SWELLING tramadol Allergy Severe S-DIFF. Verified 10/21/24 13:10 BREATHING; SWELLING albuterol Allergy Unknown Verified 10/21/24 13:10 allergy reaction CONTRAST DYE Allergy Severe RESPIRATORY Uncoded 10/21/24 13:10 FAILURE From SEAFOOD (F/D) Allergy Severe S-DIFF. Uncoded 10/21/24 13:10 BREATHING; SWELLING PFSH <ELÍAS Vasquez - Last Filed: 10/21/24 19:03> [facility] Disclaimer: The information contained in this section may have been updated after the patient was seen, as this information can be updated by other users. Medical History History of myocardial infarction Congestive heart failure Multiple thyroid nodules History of thyroid nodule Dysphagia Palpitations GERD (gastroesophageal reflux disease) COPD (chronic obstructive pulmonary disease) Cancer Asthma Chest pain CAD (coronary artery disease) HTN (hypertension) Surgical History History of colonoscopy History of cholecystectomy History of arthroscopy of both knees History of arthroscopy of right shoulder Family History Other Coronary artery disease Heart attack Social History Smoking Status: Current every day smoker tobacco type: cigarettes packs per day: 1 alcohol intake: never counseling provided: none substance use type: denies use current occupational status: other Travel in the last 8 weeks?: None household members: other housing: other caffeine: No Have you lived/traveled outside US in past 30 days?: No Contact w/someone who lives/traveled outside US past 30 days?: No Exposure to someone with infectious disease in past 14 days?: No Do you have a fever (greater than 100.4 F or 38 C)?: No Have you tested positive for COVID-19?: No Exposed to someone with COVID-19 in past 14 days?: No Do you have a sore throat?: No Do you have a cough?: No Do you have any weakness?: No Do you have any diarrhea?: No Are you experiencing any unusual bleeding?: No Do you have any muscle aches/pain?: No Do you have any abdominal pain?: No Are you experiencing loss of taste or smell?: No Other Medical History Have you received the Flu Vaccine for this season: No Have you received the Pneumonia Vaccine: Yes <ELÍAS Vasquez - Last Filed: 10/21/24 19:03> ROS Obtained: Yes Systems reviewed as appropriate & no additional complaints except as documented Physical Exam <ELÍAS Vasquez - Last Filed: 10/21/24 19:03> General General appearance: alert and in no apparent distress Respiratory Respiratory exam: Present normal lung sounds bilaterally Cardiovascular Cardiovascular exam: Present regular rate Neurological Exam Neurological exam: Present alert and oriented X3 HEART Score <ELÍAS Vasquez - Last Filed: 10/21/24 19:03> HEART Score HEART Score assessment performed?: Yes History (anamnesis): Slightly suspicious ECG: Normal Age: 45-65 years Risk factors: Atherosclerosis history Troponin: </= normal limit HEART Score: 3 <Altaf Ayala MD - Last Filed: 10/21/24 23:34> HEART Score HEART Score: 3 Critical Care <ELÍAS Vasquez - Last Filed: 10/21/24 19:03> Critical Care Time Critical Care Time: No Medical Decision Making <ELÍAS Vasquez - Last Filed: 10/21/24 19:03> Medical Records Medical records reviewed: Yes I reviewed the patient's medical records. [place] Inquiry Pt receiving controlled substance: No Vital Signs Vital Signs: 10/21/24 14:20 10/21/24 15:16 10/21/24 15:31 Temperature 97.9 F Temperature Source Oral Pulse Rate 57 L 74 Pulse Rate [Left] 88 Respiratory Rate 20 17 12 Blood Pressure 183/106 H 185/116 H Blood Pressure [Right Arm] 205/111 H Blood Pressure Mean [Right Arm] 142 Blood Pressure Source Blood Pressure Source [Right Arm] Manual Cuff/ Doppler Blood Pressure Position Blood Pressure Position [Right Arm] Sitting 02 Sat by Pulse Oximetry 97 96 95 Oxygen Delivery Method Room Air Room Air Room Air 10/21/24 15:46 10/21/24 16:01 10/21/24 16:31 Temperature 98.4 F Temperature Source Oral Pulse Rate 51 L 62 74 Pulse Rate [Left] Respiratory Rate 20 43 H 14 Blood Pressure 172/101 H 191/103 H 196/123 H Blood Pressure [Right Arm] Blood Pressure Mean [Right Arm] Blood Pressure Source Automatic Cuff Blood Pressure Source [Right Arm] Blood Pressure Position Supine Blood Pressure Position [Right Arm] 02 Sat by Pulse Oximetry 95 98 Oxygen Delivery Method Room Air Room Air Lab Data Lab results reviewed: Yes I reviewed the patient's lab results. Labs: Lab Results 10/21/24 14:30: WBC 7.7, RBC 5.54, Hgb 17.7, Hct 51.3, MCV 92.6, MCH 31.9 H, MCHC 34.5, RDW 12.5, Plt Count 137 L, MPV 12.7 H, Neut % (Auto) 63.5, Lymph % (Auto) 24.5, [place] % (Auto) 7.6, Eos % (Auto) 3.0, Baso % (Auto) 1.0, Neut # (Auto) 4.9, Lymph # (Auto) 1.9, [place] # (Auto) 0.6, Eos # (Auto) 0.2, Baso # (Auto) 0.1, Sodium 141, Potassium 3.6, Chloride 104, Carbon Dioxide 31 H, Anion Gap 9.6, BUN 11, Creatinine 1.30 H, Estimated Creat Clear 94, Estimated GFR 57 L , Est GFR ( Amer) 69, Glucose 100, Calcium 9.0, Total Bilirubin 0.8, AST 34, ALT 37, Alkaline Phosphatase 138 H, Troponin I < 0.01, NT-Pro-B Natriuret Pep 155 H, Total Protein 7.5, Albumin 4.6, Globulin 2.9, Albumin/Globulin Ratio 1.6, HCV Ab SANTOS w/Rflx PCR Qn Negative, HIV Ag/Ab Combo Qual Negative 10/21/24 14:44: VBG pH 7.35, VBG pCO2 43.2, VBG pO2 41.6 H, VBG HCO3 23.1, VBG Total CO2 24.4, VBG O2 Saturation 78.5 H, VBG Base Excess -2.6 L, VBG Lactic Acid 1.6 10/21/24 14:30 10/21/24 14:30 Response Orders (Tests/Meds): ED MEDICATIONS Discontinued Medications Generic Name Dose Route Start Last Admin Trade Name Freq PRN Reason Stop Dose Admin Aspirin 324 mg 10/21/24 14:52 10/21/24 15:27 Aspirin Ec 81mg Tablet PO 10/21/24 14:53 324 mg ONCE ONE Administration ORDERS Category Date Time Status Chest XR -- portable [XR chest portable] Stat Exams 10/21/24 14:51 Completed BNP [NT Pro Brain Natriuretic Pep.] Stat Lab 10/21/24 14:30 Completed Complete Blood Count Auto Diff Stat Lab 10/21/24 14:30 Completed Comprehensive Metabolic Panel Stat Lab 10/21/24 14:30 Completed HIV Combo Stat Lab 10/21/24 14:30 Completed Hepatitis C Ab Qual. W/ RFX Stat Lab 10/21/24 14:30 Completed Troponin I Stat Lab 10/21/24 14:30 Completed VBG [Venous Blood Gas] Stat RT 10/21/24 14:44 Completed MDM Narrative Medical Decision Narrative: In summary patient is a 58-year-old male who presents to the emergency department for evaluation of asymptomatic hypertension. Patient is hypertensive on arrival with a blood pressure 205/111 pulse 88 normal sinus rhythm on bedside monitor breathing 20 times a minute satting at 97% on room air upon arrival, afebrile at 97.9. Physical exam reveals a well-nourished well-developed was awake 58-year-old gentleman is currently in no acute distress. Breath sounds clear and equal bilaterally to the bases without adventitious sounds, heart sounds are S1-S2 regular rate and rhythm without murmurs gallops rubs or thrills, abdomen soft nontender no rebound or guarding no rigidity. Patient is neurovascularly intact in all 4 extremities and has nonpitting edema in his right lower extremity which is known.. Differential diagnosis considered included CHF hypertensive emergency ACS etc. Initial workup will be conducted with hematologic labs twelve-lead EKG Inflatherm chest x-ray. Initial interventions were considered however patient is symptom-free thus deferred.. Initial workup reviewed by me shows his hematologic labs significant for normal white count normal H&H no neutrophilic shift VBG shows a pH of 7.35 VBG lactic acid 1.6 creatinine is 1.3 GFR is 57 troponin is undetectable at 0.01 NT proBNP is 155 urinalysis is bland and my informal trepidation of his plain film chest x-ray shows no acute processes. Upon repeat evaluation patient remains asymptomatic. 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 Patient verbalized understanding and agreement. <Altaf Ayala MD - Last Filed: 10/21/24 23:34> Vital Signs Vital Signs: 10/21/24 14:20 10/21/24 15:16 10/21/24 15:31 Temperature 97.9 F Temperature Source Oral Pulse Rate 57 L 74 Pulse Rate [Left] 88 Respiratory Rate 20 17 12 Blood Pressure 183/106 H 185/116 H Blood Pressure [Right Arm] 205/111 H Blood Pressure Mean [Right Arm] 142 Blood Pressure Source Blood Pressure Source [Right Arm] Manual Cuff/ Doppler Blood Pressure Position Blood Pressure Position [Right Arm] Sitting 02 Sat by Pulse Oximetry 97 96 95 Oxygen Delivery Method Room Air Room Air Room Air 10/21/24 15:46 10/21/24 16:01 10/21/24 16:31 Temperature 98.4 F Temperature Source Oral Pulse Rate 51 L 62 74 Pulse Rate [Left] Respiratory Rate 20 43 H 14 Blood Pressure 172/101 H 191/103 H 196/123 H Blood Pressure [Right Arm] Blood Pressure Mean [Right Arm] Blood Pressure Source Automatic Cuff Blood Pressure Source [Right Arm] Blood Pressure Position Supine Blood Pressure Position [Right Arm] 02 Sat by Pulse Oximetry 95 98 Oxygen Delivery Method Room Air Room Air Lab Data Labs: Lab Results 10/21/24 14:30: WBC 7.7, RBC 5.54, Hgb 17.7, Hct 51.3, MCV 92.6, MCH 31.9 H, MCHC 34.5, RDW 12.5, Plt Count 137 L, MPV 12.7 H, Neut % (Auto) 63.5, Lymph % (Auto) 24.5, [place] % (Auto) 7.6, Eos % (Auto) 3.0, Baso % (Auto) 1.0, Neut # (Auto) 4.9, Lymph # (Auto) 1.9, [place] # (Auto) 0.6, Eos # (Auto) 0.2, Baso # (Auto) 0.1, Sodium 141, Potassium 3.6, Chloride 104, Carbon Dioxide 31 H, Anion Gap 9.6, BUN 11, Creatinine 1.30 H, Estimated Creat Clear 94, Estimated GFR 57 L , Est GFR ( Amer) 69, Glucose 100, Calcium 9.0, Total Bilirubin 0.8, AST 34, ALT 37, Alkaline Phosphatase 138 H, Troponin I < 0.01, NT-Pro-B Natriuret Pep 155 H, Total Protein 7.5, Albumin 4.6, Globulin 2.9, Albumin/Globulin Ratio 1.6, HCV Ab SANTOS w/Rflx PCR Qn Negative, HIV Ag/Ab Combo Qual Negative 10/21/24 14:44: VBG pH 7.35, VBG pCO2 43.2, VBG pO2 41.6 H, VBG HCO3 23.1, VBG Total CO2 24.4, VBG O2 Saturation 78.5 H, VBG Base Excess -2.6 L, VBG Lactic Acid 1.6 Response Orders (Tests/Meds): ED MEDICATIONS Discontinued Medications Generic Name Dose Route Start Last Admin Trade Name Freq PRN Reason Stop Dose Admin Aspirin 324 mg 10/21/24 14:52 10/21/24 15:27 Aspirin Ec 81mg Tablet PO 10/21/24 14:53 324 mg ONCE ONE Administration ORDERS Category Date Time Status Chest XR -- portable [XR chest portable] Stat Exams 10/21/24 14:51 Completed BNP [NT Pro Brain Natriuretic Pep.] Stat Lab 10/21/24 14:30 Completed Complete Blood Count Auto Diff Stat Lab 10/21/24 14:30 Completed Comprehensive Metabolic Panel Stat Lab 10/21/24 14:30 Completed HIV Combo Stat Lab 10/21/24 14:30 Completed Hepatitis C Ab Qual. W/ RFX Stat Lab 10/21/24 14:30 Completed Troponin I Stat Lab 10/21/24 14:30 Completed VBG [Venous Blood Gas] Stat RT 10/21/24 14:44 Completed MDM Narrative Medical Decision Narrative: In summary patient is a 58-year-old male who presents to the emergency department for evaluation of asymptomatic hypertension. Patient is hypertensive on arrival with a blood pressure 205/111 pulse 88 normal sinus rhythm on bedside monitor breathing 20 times a minute satting at 97% on room air upon arrival, afebrile at 97.9. Physical exam reveals a well-nourished well-developed was awake 58-year-old gentleman is currently in no acute distress. Breath sounds clear and equal bilaterally to the bases without adventitious sounds, heart sounds are S1-S2 regular rate and rhythm without murmurs gallops rubs or thrills, abdomen soft nontender no rebound or guarding no rigidity. Patient is neurovascularly intact in all 4 extremities and has nonpitting edema in his right lower extremity which is known.. Differential diagnosis considered included CHF hypertensive emergency ACS etc. Initial workup will be conducted with hematologic labs twelve-lead EKG Inflatherm chest x-ray. Initial interventions were considered however patient is symptom-free thus deferred.. Initial workup reviewed by me shows his hematologic labs significant for normal white count normal H&H no neutrophilic shift VBG shows a pH of 7.35 VBG lactic acid 1.6 creatinine is 1.3 GFR is 57 troponin is undetectable at 0.01 NT proBNP is 155 urinalysis is bland and my informal trepidation of his plain film chest x-ray shows no acute processes. Upon repeat evaluation patient remains asymptomatic. 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 Patient verbalized understanding and agreement. I was consulted by the VANDA, and we discussed the complexity of the problems being addressed.I approved the treatment and management plan for this patient?s care in the Emergency Department, thus performing a substantive portion of the medical decision making.Signed, Altaf Ayala MD MBA
[2024-10-21] MEDS: ASPIRIN EC 81MG TABLET 324 MG PO (15:27)
[2024-10-21 15:31] VITALS: BP 185/116; PULSE 74; RESP 12; O2SAT 95
[2024-10-21 15:46] VITALS: BP 172/101; PULSE 51; RESP 20; O2SAT 95
[2024-10-21 15:56] LABS: HIV Combo NEGATIVE (Negative)
[2024-10-21 16:01] VITALS: BP 191/103; PULSE 62; RESP 43; O2SAT 98
[2024-10-21 16:05] LABS: Hepatitis C Ab Qual. W/ RFX NEGATIVE (Negative)
[2024-10-21 16:08] LABS: NT Pro Brain Natriuretic Pep. 155 pg/mL (0-125)
--- NOTE | 2024-10-21 16:13 | PC.NURSE ---
Gave the patient a blanket.
[2024-10-21 16:31] VITALS: BP 196/123; PULSE 74; RESP 14; TEMP 36.9; O2SAT 100
[2024-10-24 08:16] LABS: PSA, Free 0.18 ng/mL; Prostate Specific Ag 0.8 ng/mL (0.0-4.0)
== END 2024-10-21 16:35 | disposition home or self-care (01) ==
PROVIDERS: Emergency Medicine; Physician Assistant; Urology; Emergency Provider Emergency Medicine; PCP Nurse Practitioner
DX: R91.1 Solitary pulmonary nodule (principal); I10 Essential (primary) hypertension; F17.210 Nicotine dependence, cigarettes, uncomplicated; Z11.59 Encounter for screening for other viral diseases; Z11.4 Encounter for screening for human immunodeficiency virus [HIV]
CPT/HCPCS: 71045; 80053; 82803; 83880; 84153; 84154; 84484; 85025; 86803; 87389; 93005; 99284

== ENCOUNTER 2024-12-09 14:41 | Outpatient (CLI) | payer MEDICAID, SELFPAY ==
--- OUTSIDE RECORDS SUMMARY | 2024-11-08 11:57 | XMS_ITS | Encounter Summary ---
[facility] [address] [place] [address] Care Team Providers Care Kindergarten Teacher Name Role Phone Delmer Fritz MD Primary Care Provider Reason for Referral * Cardiac Stress Testing (Routine) - Closed Specialty Diagnoses / Procedures Referred By Cortez johnson Referred To Contact Diagnoses Amyloidosis, unspecified type Procedures [facility] Imaging for Cardiac Amyloidosis Antwan Armstrong MD [address] [place] [address] Phone: tel: fax: Referral ID Status Reason Start Date Expiration Date Visits Re quested Visits Authorized Closed 11/01/2024 01/31/2026 1 1 Reason for Visit * Cardiac Stress Testing (Routine) - Closed Specialty Diagnoses / Procedures Referred By Cortez johnson Referred To Contact Diagnoses Amyloidosis, unspecified type Procedures [facility] Imaging for Cardiac Amyloidosis Antwan Armstrong MD [facility] [place] [address] Phone: tel: fax: Referral ID Status Reason Start Date Expiration Date Visits Re quested Visits Authorized Closed 11/01/2024 01/31/2026 1 1 Encounter Details Date Type Department Care Team (Late st Contact Info) Description 11/08/2024 11:57 AM EDT - 11/08/2024 11:59 PM EDT Hospital Encounter [facility] [address] [place] [address] Antwan Armstrong MD [address] [place] [address] Amyloidosis, unspecified type Discharge Disposition: Home or Self Care Social History Tobacco Use Types Packs/Day Years Used Date Smoking Tobacco: Every Day Cigarettes 0.3 38.6 Started: 1986 Smokeless Tobacco: Former Comments:has smoked over a p ack a day at times. 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 06/11/2018 benzonatate (TESSALON) 100 MG capsule Take 1 capsule by mouth 3 (Three) Times a Day As Needed for Cough. cyclobenzaprine (FLEXERIL) 5 MG tablet Take 1 tablet by mouth. 07/17/2023 doxazosin (CARDURA) 4 MG tablet 09/28/2023 EPINEPHrine (EPIPEN) 0.3 MG/0.3ML solution auto-injector injection HYDROcodone-acetam inophen (NORCO) 5-325 MG per tablet Take 2 tablets by mouth Every 6 (Six) Hours As Needed. 06/28/2018 isosorbide mononitrate (IMDUR) 30 MG 24 hr tablet Take 1 tablet by mouth Daily. 06/11/2018 metoclopramide (REGLAN) 10 MG tablet Take 1 tablet by mouth 4 (Four) Times a Day Before Meals & at Bedtime. metoprolol succinate XL (TOPROL-XL) 100 MG 24 hr tablet 09/28/2023 nitroglycerin (NITROSTAT) 0.[address] 1 tablet under the tongue Every 5 (Five) Minutes As Needed for Chest Pain. Take no more than 3 doses in 15 minutes. ondansetron (ZOFRAN) 4 MG tablet Take 1 tablet by mouth. 11/21/2018 pantoprazole (PROTONIX) 40 MG EC tablet Take 1 tablet by mouth Daily. promethazine (PHENERGAN) 25 MG tablet Take 1 tablet by mouth Every 6 (Six) Hours As Needed. 11/21/2018 rosuvastatin (CRESTOR) 40 MG tablet 07/17/2023 documented as of this encounter Plan of Treatment Not on file documented as of this encounter Procedures Procedure Name Priority Date/Time Associated Diagnosis Comments PYP IMAGING FOR CARDIAC AMYLOIDOSIS Routine 11/08/2024 12:13 PM EDT Amyloidosis, unspecified type documented in this encounter Results * [facility]YP Imaging for Cardiac Amyloidosis (11/08/2024 12:13 PM EDT) Anatomical Region Laterality Modality Nuclear Medicine Narrative 11/08/2024 3:41 PM EDT Semi-quantitative visual grading of myocardial uptake by comparison to rib uptake was grade 0 (no cardiac uptake and normal bone uptake). Quantitative analysis of heart/lung ratio was normal. The study is not suggestive of ATTR cardiac amyloidosis. There is no prior study available for comparison. PYP Technical Details Rest imaging was performed with CT based attenuation correction while the patient was in a supine position approximately two hour(s) following the intravenous injection of 21 mCi of Technetium-99m HDP administered on 11/08/2024 at 12:05 EDT in the right antecubital fossa. Planar and SPECT acquisition was performed. PYP Findings The image quality of the study was good. Semi-quantitative visual grading of myocardial uptake by comparison to rib uptake was grade 0 (no cardiac uptake and normal bone uptake). . Quantitative analysis of heart/lung ratio was normal. PYP Conclusion The study is not suggestive of ATTR cardiac amyloidosis. There is no prior study available for comparison. Please note that [place] amylodosis should be excluded using appropriate serum and urine tests prior to final diagnosis of ATTR amyloidosis. PYP scan does not differentiate between wild-type and hereditary ATTR amyloidosis, and very rare instances of false positive or negative PYP scans can occur. Consider formal Cardiology/Heart Failure Clinic referral if clinically indicated. us Antwan Armstrong MD CV STRESS ORDERABLES Final Result documented in this encounter Visit Diagnoses Diagnosis Amyloidosis, unspecified type documented in this encounter Administered Medications Inactive Administered Medications - up to 3 most recent administrations Medication Order MAR Action Action Date Dose Rate Site technetium oxidronate (TechneScan HDP) injection 1 dose 1 dose, Intravenous, Once in Imaging, On Mon11/08/24 at 1209, For 1 dose, Millicuries: 21 Given 11/08/2024 12:07 PM EDT 1 dose documented in this encounter Care Teams Kindergarten Teacher Relationship Specialty Start Date End Date Delmer Fritz MD [address] [place] [address] PCP - General Family Medicine 08/07/24 documented as of this encounter
--- OUTSIDE RECORDS SUMMARY | 2024-11-11 13:40 | XMS_ITS | Encounter Summary ---
Author Organization Healthcare Address [address] [place] [address] Care Team Providers Care Advanced Manufacturing Vice President Name Role Phone Ángela Millard CASINO INVESTIGATOR Unavailable [phone] Inna Serrano APRN Primary Care Provider [phone] Reason for Visit * Reason Comments Follow-up Encounter Details Date Type Department Care Team (Late st Contact Info) Description 11/11/2024 1:40 PM EDT Office Visit [facility] [address] [place] [address] Leslie Suarez DO [address] [facility] [address] [place] [address] High risk medication use (Primary Dx) Social History Tobacco Use Types Packs/Day Years Used Date Smoking Tobacco: Every Day Cigarettes 0.3 37 Started: 11/06/1986; Last attempted to quit: 10/30/2023 Smokeless Tobacco: Never Tobacco Cessation:Ready to Q uit: Not Asked; Counseling Given: Not Answered Alcohol Use Standard Drinks/Week Comments No 0 (1 standard drink = 0.6 oz pure alcohol) Alcoholic Drinks/day: Never Drank Alcohol PHQ-2 Answer Date Recorded Patient Health Questionnaire-2 Score 0 11/11/2024 PHQ-2A Answer Date Recorded Patient Health Questionnaire-2 Score 0 03/23/2023 Sex and Gender Information Value Date Recorded Sex Assigned at Not on file Legal Sex Male 8:01 PM EDT Gender Identity Not on file Sexual Orientation Not on file documented as of this encounter Last Filed Vital Signs Vital Sign Reading Time Taken Comments Blood Pressure 161/103 11/11/2024 1:27 PM EDT Pulse - - Temperature - - Respiratory Rate - - Oxygen Saturation - - Inhaled Oxygen Concentration - - Weight 105 kg (232 lb) 11/11/2024 1:27 PM EDT Height 182.9 cm (6') 11/11/2024 1:27 PM EDT Body Mass Index 31.46 11/11/2024 1:27 PM EDT documented in this encounter Functional Status * Over the past 2 weeks, how often have you been bothered by any of the following problems? Question Answer Date of Assessment Author Little interest or pleasure in doing things Not at all 11/11/2024 1:29 PM EDT Poly Squires Feeling down, depressed, or hopeless Not at all 10/21 1:29 PM EDT Poly Squires Patient Health Questionnaire-2 Score 0 10/21 1:29 PM EDT Poly Squires * Calculated C-SSRS Risk Score (Lifetime/Recent) Answer Date of Assessment Author No Risk Indicated 11/11/2024 1:28 PM EDT Jaja Squires * If you checked off any problems on this questionnaire so far, Question Answer Date of Assessment Author How difficult have these problems made it for you to do your work, take care of things at home, or get along with other people? Not difficult at all 11/11/2024 1:29 PM EDT Poly Squires * Question Answer Date of Assessment Author 1. Wish to be (Past 1 Month) No 025 1:28 PM EDT Poly Squires 2. Non-Specific Active Suici tyrone Thoughts (Past 1 Month) No 11/11/2024 1:28 PM EDT Poly Squires 6. Suicidal Behavior (Lifetime) No 1:28 PM EDT Poly Squires documented as of this encounter Miscellaneous Notes * Progress Notes - Leslie Suarez DO - 11/11/2024 1:40 PM EDT Images from the original note were not included. PHYSICAL MEDICINE AND REHABILITATION OUTPATIENT CLINIC NOTE Chief Complaint: Follow up and need for med refills, pain in neck/back/feet Background History: Luca Kauffman is a 58 y.o. year old male presenting with chronic low back painand med refills Interval History: the patient was last seen in clinic 3 months ago. Notes since last visit was diagnosed with heart failure and started on lasix and entresto. Also notes diagnosed with renal insufficiency with Cr now at 1.3 due to the PFA exposure and high levels detected. Notes that his blood pressure has been elevated. He is to fu in heart failure clinic but in the meantime is trying to keep upwith monitoring of his blood pressure. Notes pain in the back and legs unchanged + swelling in the legs. Will need refills of meds. 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 Has been using his pwc more consistently as feels very SOA with any exertion. Bowel: continent Bladder: continent Skin: discoloration of forefoot bilaterally and impacted by swelling Equipment needs: none Spasticity: none Mood/behavior: stable Med refill needs: hydrocodone Current Therapy: None Other needs: None Details of past medical history, surgical history, family history, and social history reviewed in the medical record. Allergies: Allergies Allergen Reactions Ciprofloxacin Anaphylaxis, Other - please document in the comment field, Swelling and Unknown - Patient states they do not know rxn details Contrast Allergy Premed Pack [Prednisone & Diphenhydramine] Anaphylaxis and Swelling Erythromycin Anaphylaxis, Other - please document in the comment field and Swelling Iodinated Contrast Media Other - please document in the comment field and Swelling Iv Contrast Other - please document in the comment field and Swelling Keflex [Cephalexin] Shortness of breath and Swelling Lisinopril Swelling Losartan Other - please document in the comment field Milk-Related Compounds Other - please document in the comment field CAUSES PLEURAL EFFUSIONS CAUSES PLEURAL EFFUSIONS Nsaids Anaphylaxis, Swelling and Unknown - Patient states they do not know rxn details Non specific Other Swelling STERIODS Penicillins Rash, Anaphylaxis, Itching and Swelling Prednisone Anaphylaxis, Swelling and Unknown - Patient states they do not know rxn details Patient states he has the same reaction to all steroids Shellfish-Derived Products Anaphylaxis and Swelling Sulfacetamide Anaphylaxis and Swelling Tilactase Swelling and Unknown - Patient states they do not know rxn details Tramadol Other - please document in the comment field and Swelling Albuterol Other - please document in the comment field Anti-Inflammatory Enzyme [Cholestatin] Other - please document in the comment field G I bleed Ibuprofen Unknown - Patient states they do not know rxn details Shellfish Allergy Unknown - Patient states they do not know rxn details Tramadol-Acetaminophen Other - please document in the comment field and Unknown - Patient states they do not know rxn details Medications: Current Outpatient Medications: amantadine (Symmetrel) 100 MG tablet, Take 1 tablet (100 mg) by mouth 1 (one) time each day., Disp:, Rfl: cyclobenzaprine (Flexeril) 5 MG tablet, Take 1 tablet by mouth 2 times a day., Disp: 120 tablet, Rfl: 3 diclofenac (Voltaren) 1 % topical gel, , Disp: , Rfl: doxazosin (Cardura) 4 MG tablet, Take 1 tablet (4 mg) by mouth every night., Disp: , Rfl: Entresto 49-51 MG tablet, Take 1 tablet by mouth 2 times a day., Disp: , Rfl: EPINEPHrine (Epipen) 0.3 MG/0.3ML injection syringe, , Disp: , Rfl: furosemide (Lasix) 40 MG tablet, Take 1 tablet by mouth daily., Disp: , Rfl: HYDROcodone-acetaminophen ([place]) 5-325 MG tablet, Take 1 tablet by mouth every 6 hours as needed for severe pain., Disp: 120 tablet, Rfl: 0 isosorbide mononitrate ER (Imdur) 120 MG 24 hr tablet, Take 1 tablet (120 mg) by mouth 1 (one) timeeach day., Disp: , Rfl: LORazepam (Ativan) 0.5 MG tablet, Take 1 tablet by mouth 2 times a day., Disp: , Rfl: metoclopramide (Reglan) 10 MG tablet, Take 1 tablet (10 mg) by mouth., Disp: , Rfl: metOLazone (Zaroxolyn) 5 MG tablet, Take 1 tablet (5 mg) by mouth 1 (one) time each day., Disp: , Rfl: metoprolol succinate XL (Toprol-XL) 100 MG 24 hr tablet, Take 1 tablet (100 mg) by mouth 1 (one) time each day., Disp: , Rfl: naloxone (Narcan) 4 mg/0.1 mL nasal spray, 1. Give 1 spray in nostril for no/slow breathing or cannot wake after opioid use 2. Call 911 3. Repeat in other nostril if symptoms continue, Disp: 1 each, Rfl: 0 NIFEdipine XL (Procardia XL) 90 MG 24 hr tablet, , Disp: , Rfl: nitroglycerin (Nitrostat) 0.4 MG SL tablet, , Disp: , Rfl: pantoprazole (Protonix) 40 MG EC tablet, , Disp: , Rfl: promethazine (Phenergan) 25 MG tablet, Take 1 tablet (25 mg) by mouth., Disp: , Rfl: rosuvastatin (Crestor) 40 MG tablet, , Disp: , Rfl: tamsulosin (Flomax) 0.4 MG 24 hr capsule, Take 1 capsule by mouth daily., Disp: , Rfl: ROS: 14 point ROS negative except for above. Physical Examination: 02/08/2024 10:33 AM 02/08/2024 10:37 AM 02/15/2024 2:41 PM 08/12/2024 1:41 PM 09/24/2024 10:16 AM 09/24/2024 10:23 AM 11/11/2024 1:27 PM Vitals Systolic 163 180 174 181 161 Diastolic 103 88 100 130 103 Heart Rate 81 Resp 18 Height (cm) 182.9 cm 182.9 cm 182.9 cm 182.9 cm Weight (kg) 110.678 kg 110.678 kg 113.3 kg 105.235 kg BMI 33.09 kg/m2 33.09 kg/m2 33.88 kg/m2 31.46 kg/m2 BSA (m2) 2.37 m2 2.37 m2 2.4 m2 2.31 m2 Visit Report Report Report Report Report Report Report Report General Apperance: Awake, in no acute distress Respiratory: No use of accessory muscles during breathing. Cardiovascular: edema in the BLE as described by patient , mild rubor Gastrointestinal: Soft, non-tender Skin: bilateral skin discoloration in feet Heme/lymph/immune: no bruising, no lymphadenopathy Musculoskeletal: Able to move all 4 extremities but pain noted Neurological: - Awake and alert, AOx4, participating in conversation - Speech: fluent without appreciable aphasia or dysarthria Assessment: Luca Kauffman is a 58 y.o. 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 Yes Authorizations and Agreements/Telemedicine Consent sent and consent confirmed? Yes Patient Location: Patient's Home Patient confirms they are physically located in [place]? Yes If the patient is not physically located in [place], the provider has confirmed with Legal thatthe provider is authorized to provide services in patient's stated location? Yes Provider Location: HealthCare Facility Audio and video or audio only? Audio and video Total visit time: 30 minutes Electronically Signed by: Leslie Morrison DO - 11/11/2024 - 1:30 PM documented in this encounter Plan of Treatment Upcoming Encounters Date Type Department Care Team (Late st Contact Info) Description 12/24/2024 2:50 PM EDT Office Visit [facility] [address] [place] [address] Apollo Torres, LOUIE [address] [place] [address] 02/12/2025 3:00 PM EDT Office Visit [facility] at [facility] [address] [place] [address] Leslie Suarez DO [address] [facility] [address] [place] [address] 09/30/2025 10:10 AM EDT Appointment [facility] [address] [place] [address] 09/30/2025 11:30 AM EDT Office Visit [facility] [address] [place] [address] Aysha Crews MD [address] [place] [address] Scheduled Orders Name Type Priority Associated Diagnoses Orde r Schedule Pain Management, Quantitative Urine Drug Testing Lab Routine High risk medication use Expected: 02/11/2025 (Approximate), Expires: 05/15/2026 documented as of this encounter Visit Diagnoses Diagnosis High risk medication use- Primary documented in this encounter Additional Health Concerns Assessment Noted Time A fall risk assessment has been complete d for the patient 11/11/2024 1:29 PM EDT A Body Mass Index follow-up plan has been documented for the patient 11/11/2024 5:31 PM EDT documented as of this encounter Care Teams Advanced Manufacturing Vice President Relationship Specialty Start Date End Date Inna Serrano APRN [address] [place] [address] PCP - General 02/19/24 Ángela Millard, BELINDA [address] [place] [address] Nurse Practitioner Neurosurgery 09/17/21 documented as of this encounter
--- OUTSIDE RECORDS SUMMARY | 2024-12-09 14:44 | XMS_ITS | Clinical Summary ---
[facility] Organization [facility] Address [address] [place] [address] Care Team Providers Care Sack Maker Name Role Phone Delmer Fritz MD Primary Care Provider [phone] Allergies Active Allergy Reactions Criticality Noted Date Comments Ciprofloxacin Anaphylaxis,Swellin g High 09/06/2018 Contrast Dye (Echo Or Unknown Ct/Mr) Swelling High 11/01/2018 Erythromycin Anaphylaxis,Swellin g High 09/06/2018 Lisinopril Anaphylaxis,Swellin g High 07/29/2024 Milk-Related Compounds Other (See Comments) High 11/01/2018 CAUSES PLEURAL EFFUSIONS Nsaids Anaphylaxis,Swellin g High 08/21/2018 Non specific Other Swelling High 11/01/2018 STERIODS Penicillins Anaphylaxis,Swellin g High 08/21/2018 Prednisone Anaphylaxis,Swellin g High 09/06/2018 Patient states he has the same reaction to all steroids Shellfish-Derived Products Anaphylaxis,Swellin g High 09/06/2018 Medications isosorbide mononitrate (IMDUR) 30 MG 24 hr tablet Take 1 tablet by mouth Daily. 06/11/2018 Active amLODIPine (NORVASC) 2.5 MG tablet Take 1 tablet by mouth Daily. 06/11/2018 Active HYDROcodone-acet aminophen (NORCO) 5-325 MG per tablet Take 2 tablets by mouth Every 6 (Six) Hours As Needed. 06/28/2018 Active nitroglycerin (NITROSTAT) 0.[address] 1 tablet under the tongue Every 5 (Five) Minutes As Needed for Chest Pain. Take no more than 3 doses in 15 minutes. Active pantoprazole (PROTONIX) 40 MG EC tablet Take 1 tablet by mouth Daily. Active ondansetron (ZOFRAN) 4 MG tablet Take 1 tablet by mouth. 11/21/2018 Active promethazine (PHENERGAN) 25 MG tablet Take 1 tablet by mouth Every 6 (Six) Hours As Needed. 11/21/2018 Active cyclobenzaprine (FLEXERIL) 5 MG tablet Take 1 tablet by mouth. 07/17/2023 Active benzonatate (TESSALON) 100 MG capsule Take 1 capsule by mouth 3 (Three) Times a Day As Needed for Cough. Active metoprolol succinate XL (TOPROL-XL) 100 MG 24 hr tablet 09/28/2023 Act mai doxazosin (CARDURA) 4 MG tablet 09/28/2023 Active EPINEPHrine (EPIPEN) 0.3 MG/0.3ML solution auto-injector injection Active rosuvastatin (CRESTOR) 40 MG tablet 07/17/2023 Active metoclopramide (REGLAN) 10 MG tablet Take 1 tablet by mouth 4 (Four) Times a Day Before Meals & at Bedtime. Active Active Problems Problem Noted Date Diagnosed Date Bilateral pulmonary nodules (Largest 8mm in LLL) Incidental 08/21/2018 Tobacco abuse (Resolved x 1 month) 08/21/2018 Stage IV (very severe) COPD 08/21/2018 H/O Asbestos exposure 08/21/2018 Chronic back pain (Chronic narcotics) 08/21/2018 Encounters Date Type Department Care Team Description 11/08/2024 11:57 AM EDT - 11/08/2024 11:59 PM EDT Hospital Encounter [facility] [address] [place] [address] Antwan Armstrong MD Amyloidosis, unspecified type Discharge Disposition: Home or Self Care 11/08/2024 Travel from Last 3 Months Immunizations Immunization Administration Dates Next Due DTaP 08/21/2013 Flu Vaccine Intradermal Quad 18-64YR 05/23/2018 Pneumococcal Conjugate 13-Valent (PCV13) 019 Family History Medical History Relation Name Comments Asthma Child Atrial fibrillation Mother Cancer Mother lung cancer Hypertension Mother Vaginal cancer Mother Relation Name Status Comments Child Alive Father age 22 Maternal Grandfather Maternal Grandmother Mother Alive Paternal Grandfather Paternal Grandmother Social History Tobacco Use Types Packs/Day Years Used Date Smoking Tobacco: Every Day Cigarettes 0.3 38.6 Started: 1984 Smokeless Tobacco: Former Tobacco Cessation:Ready to Q uit: Not Asked; Counseling Given: Not Answered Comments:has smoked over a pack a day at times. 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 Not on file Not on f ile Last Filed Vital Signs Vital Sign Reading Time Taken Comments Blood Pressure 138/76 08/20/2024 12:09 PM EDT Pulse 81 07/29/2024 1:56 PM EDT Temperature 37 C (98.6 F) 08/20/2024 12:09 PM EDT Respiratory Rate 18 12/19/2018 2:57 PM EDT Oxygen Saturation 98% 08/20/2024 12:09 PM EDT Inhaled Oxygen Concentration - - Weight 115 kg (253 lb) 08/20/2024 12:09 PM EDT Height 182.9 cm (6') 08/20/2024 12:09 PM EDT per pt Body Mass Index 34.31 08/20/2024 12:09 PM EDT Plan of Treatment Health Maintenance Due Date Last Done Comments COLOGUARD 11/13/2012 COLON CANCER SCREENING 5 YEA R SIGMOIDOSCOPY 11/13/2012 COLONOSCOPY 11/13/2012 COLORECTAL CANCER SCREENING 11/13/2012 CT COLONOGRAPHY 11/13/2012 FECAL OCCULT BLOOD TEST 11/13/2012 FIT Testing (1 year) 11/13/2012 TDAP/TD VACCINES (2 - Tdap) 03/05/2014 03/05/2004 ZOSTER VACCINE (1 of 2) 11/13/2017 ANNUAL PHYSICAL 08/21/2018 HEPATITIS C SCREENING 08/21/2018 COVID-19 Vaccine (1 - season) 2024 Pneumococcal Vaccine 50+ (2 of 2 - PPSV23) 04/01/2024 02/05/2024, 05/23/2018 INFLUENZA VACCINE 02/19/2025 05/23/2018, 03/01/2011 Procedures Procedure Name Priority Date/Time Associated Diagnosis Comments [facility] IMAGING FOR CARDIAC AMYLOIDOSIS Routine 11/08/2024 12:13 PM EDT Amyloidosis, unspecified type from Last 3 Months Results * [facility] Imaging for Cardiac Amyloidosis [...] Cardiology/Heart Failure Clinic referral if clinically indicated. Antwan Armstrong MD CV STRESS ORDERABLES Final Result from Last 3 Months Insurance Care Teams Sack Maker Relationship Specialty Start Date End Date Delmer Fritz MD [address] [id number] PCP - General Family Medicine 08/07/24
--- OUTSIDE RECORDS SUMMARY | 2024-12-09 14:44 | XMS_ITS | Encounter Summary ---
Author Organization [facility] Address [address] [place] [address] Care Team Providers Care Planer Tailer Name Role Phone Antwan Esparza MD Primary Care Provider [phone] Ángela Millard PIPE AND TANK FABRICATOR Unavailable [phone] Inna Serrano APRN Primary Care Provider + [phone] Encounter Details Date Type Department Care Team (Late Contact Info) Description 05/24/2022 Orders Only External Location [address] [place] [address] Provider, External Social History Tobacco Use Types Packs/Day Years Used Date Smoking Tobacco: Every Day Cigarettes Smokeless Tobacco: Never Alcohol Use Standard Drinks/Week Comments No 0 (1 standard drink = 0.6 oz pure alcohol) Alcoholic Drinks/day: Never Drank Alcohol PHQ-2 Answer Date Recorded Patient Health Questionnaire-2 Score 0 04/25/2022 Sex and Gender Information Value Date Recorded Sex Assigned at Not on file Legal Sex Male 8:01 PM EDT Gender Identity Not on file Sexual Orientation Not on file documented as of this encounter Plan of Treatment Upcoming Encounters Date Type Department Care Team (Late st Contact Info) Description 12/24/2024 2:50 PM EDT [facility] Visit [facility] [address] [place] [address] Apollo Torres DPM [address] [place] [address] 02/12/2025 3:00 PM EDT Office Visit [facility] [address] [place] [address] Leslie Suarez DO [address] [place] [address] 09/30/2025 10:10 AM EDT Appointment [facility] [address] [place] [address] 09/30/2025 11:30 AM EDT Office Visit [facility] [address] [place] [address] Aysha Crews MD [address] [place] [address] documented as of this encounter Procedures Procedure Name Priority Date/Time Associated Diagnosis Comments US THYROID 05/24/2022 1:35 PM EST documented in this encounter Results * US Thyroid (05/24/2022 1:35 PM EST) Anatomical Region Laterality Modality Thyroid, Neck Ultrasound 05/24/2022 1:35 PM EST us External Provider IMG US PROCEDURES Final Result documented in this encounter Visit Diagnoses Not on filedocumented in this encounter Additional Health Concerns Assessment Noted Time A fall risk assessment has been complete d for the patient 04/25/2022 1:12 PM EST documented as of this encounter Care Teams Planer Tailer Relationship Specialty Start Date End Date Antwan Esparza MD [address] [place] [address] PCP - General 12/14/20 02/18/24 Inna Serrano APRN [address] [place] [address] PCP - General 02/19/24 Ángela Millard APRN [address] [place] [address] Nurse Practitioner Neurosurgery 09/17/21 documented as of this encounter
--- OUTSIDE RECORDS SUMMARY | 2024-12-09 14:44 | XMS_ITS | Encounter Summary ---
Author Organization [facility] Address [address] [place] [address] Care Team Providers Care Mud Analysis Well Logging Operator Name Role Phone Ángela Millard TOLL TEST DESK WORKER Unavailable [phone] Inna Serrano APRN Primary Care Provider [phone] Reason for Visit * Reason Onset Date Comments HCN - Patient Message 10/24/2024 Encounter Details Date Type Department Care Team (Late st Contact Info) Description 10/24/2024 Telephone Physical Medicine & Rehabilitation Clinic at [facility] [address] [facility] [place] [address] Leslie Suarez DO [address] [facility] [address] [place] [address] HCN - Patient Message Social History Tobacco Use Types Packs/Day Years Used Date Smoking Tobacco: Every Day Cigarettes 0.3 37 Started: 11/06/1986; Last attempted to quit: 10/30/2023 Smokeless Tobacco: Never Alcohol Use Standard Drinks/Week [...] on file documented as of this encounter Functional Status * Over the [...] as of this encounter Miscellaneous Notes * Telephone Encounter - Leslie Suarez DO - 10/24/2024 3:34 PM EDT Thank you for the update. 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 His has just been diagnosed with congestive heart failure. Best contact number: [phone] (mobile) Optimal time of day to reach caller: ANYTIME Additional comments/information from caller: None Note: Please do not reply to this message. Follow-up communication and further actions as a result of this message need to be communicated with the patient directly, if the patient is not active onMyChart. If the patient is active on MyChart, they will receive notification of the communication/outcome via MyChart. documented in this encounter Plan of Treatment Upcoming Encounters Date Type Department Care Team (Late st Contact Info) Description 12/24/2024 2:50 PM EDT Office Visit [facility] Surgery [facility] Medicine [address] [place] [address] Apollo Torres, LOUIE [address] [facility] [address] [place] [address] 02/12/2025 3:00 PM EDT Office Visit [facility] at [facility] [address] [place] [address] Leslie Suarez DO [address] [place] [address] 09/30/2025 10:10 AM EDT Appointment [facility] [address] [place] [address] 09/30/2025 11:30 AM EDT Office Visit [facility] [address] [place] [address] Aysha Crews MD [address] [facility] [address] [place] [address] documented as of this encounter Visit Diagnoses Not on filedocumented in this encounter Additional Health Concerns Assessment Noted Time A fall risk assessment has been complete d for the patient 09/24/2024 10:19 AM EDT A Body Mass Index follow-up plan has been documented for the patient 09/24/2024 12:24 PM EDT documented as of this encounter Care Teams Mud Analysis Well Logging Operator Relationship Specialty Start Date End Date Inna Serrano APRN [address] [place] [address] PCP - General 02/19/24 Ángela Millard APRN [address] [place] [address] Nurse Practitioner Neurosurgery 09/17/21 documented as of this encounter
--- OUTSIDE RECORDS SUMMARY | 2024-12-09 14:44 | XMS_ITS | Encounter Summary ---
Author Organization [facility] Address [address] [place] [address] Care Team Providers Care Tick Inspector Name Role Phone Delmer Fritz MD Primary Care Provider [phone] Antwan Esparza MD Primary Care Provider + [phone] Ángela Millard RESORT DESK CLERK Unavailable [phone] Inna Serrano APRN Primary Care Provider + [phone] Encounter Details Date Type Department Care Team (Late st Contact Info) Description 07/20/2012 Orders Only External Location [address] [place] [address] Vin Ji MD [address] [facility] [place] [address] Social History Tobacco Use Types Packs/Day Years Used Date Smoking Tobacco: Never Assessed Sex and Gender Information Value Date Recorded Sex Assigned at Not on file Legal Sex Male 8:01 PM EDT Gender Identity Not on file Sexual Orientation Not on file documented as of this encounter Plan of Treatment Upcoming Encounters Date Type Department Care Team (Late st Contact Info) Description 12/24/2024 2:50 PM EDT [facility] [address] [place] [address] Apollo Torres DPM [address] [place] [address] 02/12/2025 3:00 PM EDT Office Visit [facility] [address] [place] [address] Leslie Suarez DO [address] [place] [address] 09/30/2025 10:10 AM EDT Appointment [facility] [address] [place] [address] 09/30/2025 11:30 AM EDT Office Visit [facility] [address]nd [place] [address] Aysha Crews MD [address] [place] [address] documented as of this encounter Procedures Procedure Name Priority Date/Time Associated Diagnosis Comments XR OUTSIDE IMAGES 07/20/2012 1:54 PM EST documented in this encounter Results * XR OUTSIDE IMAGES (07/20/2012 1:54 PM EST) Anatomical Region Laterality Modality Radiographic Kendra ging 07/20/2012 1:54 PM EST us Vin Ji MD IMG XR PROCEDURES Final Res ult documented in this encounter Visit Diagnoses Not on filedocumented in this encounter Care Teams Tick Inspector Relationship Specialty Start Date End Date Delmer Fritz MD [address] [facility] [address] [place] [address] PCP - General 10/02/20 12/13/20 Antwan Esparza MD [address] [place] [address] PCP - General 12/14/20 02/18/24 Inna Serrano APRN [address] [place] [address] PCP - General 02/19/24 Ángela Millard APRN [address] [address] Nurse Practitioner Neurosurgery 09/17/21 documented as of this encounter
--- OUTSIDE RECORDS SUMMARY | 2024-12-09 14:44 | XMS_ITS | Encounter Summary ---
Author Organization Healthcare Address [address] [place] [address] Care Team Providers Care Electromechanical Technologist Name Role Phone Antwan Esparza MD Primary Care Provider [phone] Ángela Millard ASSOCIATE MERCHANT Unavailable [phone] Inna Serrano APRN Primary Care Provider [phone] Reason for Referral * Consultation (Routine) - Closed Specialty Diagnoses / Procedures Referred By Cortez johnson Referred To Contact Endocrinology Diagnoses Thyroid nodule Jose Mccracken MD [address] [facility] [address] [place] [address] Phone: tel: fax: [facility] [address] [place] [address] Phone: tel: fax: Referral ID Status Reason Start Date Expiration Date V isits Requested Visits Authorized [id number] Closed Specialty Services Required 08/01/2022 01/31/2024 1 1 Encounter Details Date Type Department Care Team (Late st Contact Info) Description 08/01/2022 Community [facility] [address] [place] [address] Jose Mccracken MD [address] [facility] [place] [address] Thyroid nodule (Primary Dx) Social History Tobacco Use Types [...] on file Sexual Orientation Not on file COVID-19 Exposure Response Date Recorded In the last 10 days, have yo u been in contact with someone who was confirmed or suspected to have Coronavirus/COVID-19? No / Unsure 08/03/2022 9:28 AM EDT documented as of this encounter Plan of Treatment Upcoming Encounters Date Type Department Care Team (Late st Contact Info) Description 12/24/2024 2:50 PM EDT [facility] [address] [place] [address] Apollo Torres DPM [address] [facility] [address] [place] [address] 02/12/2025 3:00 PM EDT Office Visit [facility] [address] [place] [address] Leslie Suarez DO [address] [place] [address] 09/30/2025 10:10 AM EDT Appointment [facility] [address] [place] [address] 09/30/2025 11:30 AM EDT Office Visit [facility] [address] [place] [address] Aysha Crews MD [address] [facility] [address] [place] [address] Scheduled Referrals Name Type Priority Associated Diagnoses Order Schedule Ambulatory referral to Endocrinology Outpatient Referral Routine Thyroid nodule 1 Occurrences starting 08/01/2022 until 02/02/2024 documented as of this encounter Visit Diagnoses Diagnosis Thyroid nodule- Primary Nontoxic uninodular goiter documented in this encounter Additional Health Concerns Assessment Noted Time A fall risk assessment has been complete d for the patient 04/25/2022 1:12 PM EST documented as of this encounter Care Teams Electromechanical Technologist Relationship Specialty Start Date End Date Antwan Esparza MD [address] [place] [address] PCP - General 12/14/20 02/18/24 Inna Serrano APRN [address] [place] [address] PCP - General 02/19/24 Ángela Millard APRN [address] [place] [address] Nurse Practitioner Neurosurgery 09/17/21 documented as of this encounter
--- OUTSIDE RECORDS SUMMARY | 2024-12-09 14:44 | XMS_ITS | Encounter Summary ---
Author Organization [facility] Address [address] [place] [address] Care Team Providers Care University Counselor Name Role Phone Ángela Millard LOGISTICS SPECIALIST Unavailable [phone] Inna Serrano APRN Primary Care Provider [phone] Reason for Visit * Reason Onset Date Comments HCN - Patient Message 10/31/2024 Encounter Details Date Type Department Care Team (Late st Contact Info) Description 10/31/2024 Telephone Physical Medicine & Rehabilitation Clinic at [facility] [address] [place] [address] Leslie Suarez DO [address] [facility] [address] [place] [address] HCN - Patient Message Social History Tobacco Use Types Packs/Day Years Used Date Smoking Tobacco: Every Day Cigarettes 0.3 37 Started: 11/06/1986; Last attempted to quit: 10/30/2023 Smokeless Tobacco: Never Alcohol Use Standard Drinks/Week Comments No 0 (1 standard drink = 0.6 oz pure alcohol) Alcoholic Drinks/day: Never Drank Alcohol PHQ-2 Answer Date Recorded Patient Health Questionnaire-2 Score 0 08/12/2024 PHQ-2A Answer Date Recorded Patient Health Questionnaire-2 Score 0 03/23/2023 Sex and Gender Information Value Date Recorded Sex Assigned at Not on file Legal Sex Male 8:01 PM EDT Gender Identity Not on file Sexual Orientation Not on file documented as of this encounter Miscellaneous Notes * Telephone Encounter - Graciela Lal - 10/31/2024 2:49 PM EDT Confirmed 11/11/24 is a telephone visit with Dr. Morrison at end of clinic day. * Telephone Encounter - Carissa Fried - 10/31/2024 1:21 PM EDT Clinical Concern/Question SANDIE Reason for Call: Patient calling asking to change his TH on 11/11 to a phone call. Please call patient back to arrange if possible. Best contact number: [phone] (mobile) Optimal time of day to reach caller: ANYTIME Additional comments/information from caller: None Note: Please do not reply to this message. Follow-up communication and further actions as a result of this message need to be communicated with the patient directly, if the patient is not active onMyChart. If the patient is active on MyChart, they will receive notification of the communication/outcome via [employer]. documented in this encounter Plan of Treatment Upcoming Encounters Date Type Department Care Team (Late st Contact Info) Description 12/24/2024 2:50 PM EDT Office Visit [facility] Orthopaedic Surgery & Sports Medicine [address] [place] [address] Apollo Torres, DPLeland [address] [place] [address] 02/12/2025 3:00 PM EDT Office Visit [facility] Rehabilitation Clinic at [facility] [address] [place] [address] Leslie Suarez DO [address] [place] [address] 09/30/2025 10:10 AM EDT Appointment [facility] [address] [place] [address] 09/30/2025 11:30 AM EDT Office Visit [facility] [address] [place] [address] Aysha Crews MD [address] [place] [address] documented as of this encounter Visit Diagnoses Not on filedocumented in this encounter Additional Health Concerns Assessment Noted Time A fall risk assessment has been complete d for the patient 09/24/2024 10:19 AM EDT A Body Mass Index follow-up plan has been documented for the patient 09/24/2024 12:24 PM EDT documented as of this encounter Care Teams University Counselor Relationship Specialty Start Date End Date Inna Serrano APRN [address] [place] [address] PCP - General 02/19/24 Ángela Millard APRN [address] [place] [address] Nurse Practitioner Neurosurgery 09/17/21 documented as of this encounter
--- OUTSIDE RECORDS SUMMARY | 2024-12-09 14:44 | XMS_ITS | Encounter Summary ---
Author Organization [facility] Address [address] [place] [address] Care Team Providers Care Appraisal Technician Name Role Phone Ángela Millard PURIFICATION OPERATOR HELPER Unavailable [phone] Inna Serrano APRN Primary Care Provider [phone] Reason for Visit * Reason Onset Date Comments HCN - Patient Message 10/28/2024 Encounter Details Date Type Department Care Team (Late st Contact Info) Description 10/28/2024 Telephone Physical [facility] at [facility] [address] [facility] [place] [address] Leslie Suarez DO [address] [facility] [address] [place] [address] HCN - Patient Message Social [...] Telephone Encounter - Leslie Suarez DO - 10/28/2024 9:47 AM EDT Noted and thanks for passing along. * Telephone Encounter - Omkar Thurman - 10/28/2024 8:47 AM EDT Clinical Concern/Question Reason for Call: Dr. Adonis Morrison pt called to correct a message he sent last week. He states he does not have congestive heart failure. He states he was diagnosed with chronic heart failure. Best contact number: [phone] (mobile) Optimal time of day to reach [...] Description 12/24/2024 2:50 PM EDT Office Visit [facility] Orthopaedic Surgery & Sports Medicine [address], 1st [address] [place] [address] Apollo Torres DPM [address] [place] [address] 02/12/2025 3:00 PM EDT Office Visit [facility] at [facility] [address] [place] [address] Leslie Suarez DO [address] [place] [address] 09/30/2025 10:10 AM EDT Appointment [facility] Rad[facility] [address] [place] [address] 09/30/2025 11:30 AM EDT Office Visit [facility] [address] [facility], 2nd [place] [address] Aysha Crews MD [address] [facility] [address] [place] [address] documented as of this encounter Visit Diagnoses Not on filedocumented in this encounter Additional Health Concerns Assessment Noted Time A fall risk assessment has been complete d for the patient 09/24/2024 10:19 AM EDT A Body Mass Index follow-up plan has been documented for the patient 09/24/2024 12:24 PM EDT documented as of this encounter Care Teams Appraisal Technician Relationship Specialty Start Date End Date Inna Serrano APRN [address] [place], [place] [id number] PCP - General 02/19/24 Ángela Millard APRN [address] [place] [address] Nurse Practitioner Neurosurgery 09/17/21 documented as of this encounter
--- OUTSIDE RECORDS SUMMARY | 2024-12-09 14:44 | XMS_ITS | Encounter Summary ---
Author Organization Healthcare Address [address] [place] [address] Care Team Providers Care Pyrotechnic Mixer Name Role Phone Delmer Fritz MD Primary Care Provider [phone] Antwan Esparza MD Primary Care Provider + [phone] Ángela Millard CUSTOM SHOEMAKER Unavailable [phone] Inna Serrano APRN Primary Care Provider + [phone] Encounter Details Date Type Department Care Team (Late st Contact Info) Description 02/09/2011 Orders Only External Location [address] [place] [address] Vin Ji MD [address] [facility] [place] [address] Social History Tobacco Use Types [...] Description 12/24/2024 2:50 PM EDT Office Visit [facility] [address], 1st Floor [address] [place] [address] Apollo Torres DPM [address] [place] [address] 02/12/2025 3:00 PM EDT Office Visit [facility] [address] [place] [address] Leslie Suarez DO [address] [place] [address] 09/30/2025 10:10 AM EDT Appointment [facility] Rad[facility] [address] [place] [address] 09/30/2025 11:30 AM EDT Office Visit [facility] [address], 2nd [place] [address] Ayhsa Crews MD [address] [place] [address] documented as of this encounter Procedures Procedure Name Priority Date/Time Associated Diagnosis Comments XR OUTSIDE IMAGES 02/09/2011 3:37 PM EDT documented in this encounter Results * XR OUTSIDE IMAGES (02/09/2011 3:37 PM EDT) Anatomical Region Laterality Modality Radiographic Kendra ging 02/09/2011 3:37 PM EDT Vin Ji MD IMG XR PROCEDURES Final Res ult documented in this encounter Visit Diagnoses Not on filedocumented in this encounter Care Teams Pyrotechnic Mixer Relationship Specialty Start Date End Date Delmer Fritz MD [address] [facility] [address] [place] [address] PCP - General 10/02/20 12/13/20 Antwan Esparza MD [address] [place] [address] PCP - General 12/14/20 02/18/24 Inna Serrano APRN [address] [place] [address] PCP - General 02/19/24 Ángela Millard APRN [address] [facility] [place] [address] Nurse Practitioner Neurosurgery 09/17/21 documented as of this encounter
--- OUTSIDE RECORDS SUMMARY | 2024-12-09 14:44 | XMS_ITS | Encounter Summary ---
Author Organization Healthcare Address [address] [place] [address] Care Team Providers Care Gold Frame Assembler Name Role Phone Ángela Millard MANAGER EQUITY Unavailable [phone] Inna Serrano MANAGER EQUITY Primary Care Provider [phone] Reason for Visit * Reason Onset Date Comments HCN - Rx Refill Request 10/10/2024 Encounter Details Date Type Department Care Team (Late st Contact Info) Description 10/10/2024 Telephone Physical Medicine & Rehabilitation Clinic at [facility] [address] [facility] [place] [address] Leslie Suarez DO [address] [facility] [address] [place] [address] HCN - Rx Refill Request Social History Tobacco Use Types Packs/Day Years [...] Telephone Encounter - Leslie Suarez DO - 10/10/2024 10:12 AM EDT done * Telephone Encounter - Malena Edmond - 10/10/2024 8:52 AM EDT Medication Refill Request Medication Name: flexieril and hydrocodone Dosage: on chart Preferred Pharmacy & Location: [facility] [place] [address] [address] (Pharmacy) Days of medication remaining (if under 3 days please aishwarya as urgent): 6 Best contact number: [phone] (home) Optimal time of day to reach caller: ANYTIME Additional comments/information from caller: None Note: Please do not reply to this message. Follow-up communication and further actions as a result of this message need to be communicated with the patient directly, if the patient is not active onMyChart. If the patient is active on MyChart, they will receive notification of the communication/outcome via [employer]. documented in this encounter Plan of Treatment Upcoming Encounters Date Type Department Care Team (Late st Contact Info) Description 12/24/2024 2:50 PM EDT Office Visit [facility] Orthopaedic Surgery & Sports Medicine [address], 1st Floor [address] [place] [address] Apollo Torres, DPLeland [address] [place] [address] 02/12/2025 3:00 PM EDT Office Visit Physical Medicine & Rehabilitation Clinic at [facility] [address] [place] [address] Leslie Suarez DO [address] [place] [address] 09/30/2025 10:10 AM EDT Appointment [facility] Rad[facility] [address] [place] [address] 09/30/2025 11:30 AM EDT Office Visit [facility] [address], 2nd [place] [address] Aysha Crews MD [address] [place] [address] documented as of this encounter Visit Diagnoses Not on filedocumented in this encounter Additional Health Concerns Assessment Noted Time A fall risk assessment has been complete d for the patient 09/24/2024 10:19 AM EDT A Body Mass Index follow-up plan has been documented for the patient 09/24/2024 12:24 PM EDT documented as of this encounter Care Teams Gold Frame Assembler Relationship Specialty Start Date End Date Inna Serrano APRN [facility] [place] [address] PCP - General 02/19/24 Ángela Millard APRN [address] [place] [address] Nurse Practitioner Neurosurgery 09/17/21 documented as of this encounter
--- OUTSIDE RECORDS SUMMARY | 2024-12-09 14:44 | XMS_ITS | Encounter Summary ---
Author Organization Healthcare Address [address] [place] [address] Care Team Providers Care Salesperson Art Objects Name Role Phone Antwan Esparza MD Primary Care Provider + [phone] Ángela Millard SOLUTION MANAGER Unavailable [phone] Inna Serrano APRN Primary Care Provider [phone] Encounter Details Date Type Department Care Team (Late st Contact Info) Description 12/20/2023 Orders Only External Location [address] [place] [address] Provider, External Social History Tobacco Use Types Packs/Day Years Used Date Smoking Tobacco: Every Day Cigarettes Smokeless Tobacco: Never Alcohol Use Standard Drinks/Week Comments No 0 (1 standard drink = 0.6 oz pure alcohol) Alcoholic Drinks/day: Never Drank Alcohol PHQ-2 Answer Date Recorded Patient Health Questionnaire-2 Score 0 12/21/2023 PHQ-2A Answer Date Recorded Patient Health Questionnaire-2 [...] pleasure in doing things Not at all 12/21/2023 2:54 PM EDT Branden Sancehz RN Feeling down, depressed, or hopeless Not at all 12/21/2023 2:54 PM EDT Branden Calderon RN Patient Health Questionnaire-2 Score 0 12/21/2023 2:54 PM EDT Branden Jules, ANNIKA * Calculated C-SSRS Risk Score (Lifetime/Recent) Answer Date of Assessment Author No Risk Indicated 12/21/2023 2:54 PM EDT Branden Pretty, ANNIKA * Question Answer Date of Assessment Author 1. Wish to be (Past 1 Month) No 12/21/2023 2:54 PM EDT Branden Calderon RN 2. Non-Specific Active Suicidal Thoughts (Past 1 Month) No 12/21/2023 2:54 PM EDT Branden Calderon, ANNIKA 6. Suicidal Behavior (Lifetime) No 12/21/2023 2:54 PM EDT Branden Calderon, ANNIKA documented as of this encounter Plan of Treatment Upcoming Encounters Date Type Department Care Team (Late st Contact Info) Description 12/24/2024 2:50 PM EDT Office Visit [facility] Surgery [facility] [address], 1st Floor [address] [place] [address] Apollo Torres DPM [address] [place] [address] 02/12/2025 3:00 PM EDT Office Visit [facility] at [facility] [address] [place] [address] Leslie Suarez DO [address] [place] [address] 09/30/2025 10:10 AM EDT Appointment [facility] [address] [place] [address] 09/30/2025 11:30 AM EDT Office Visit [facility] [address] 2nd [place] [address] Aysha Crews MD [address] [place] [address] documented as of this encounter Procedures Procedure Name Priority Date/Time Associated Diagnosis Comments XR OUTSIDE IMAGES 12/20/2023 1:52 PM EDT documented in this encounter Results * XR OUTSIDE IMAGES (12/20/2023 1:52 PM EDT) Anatomical Region Laterality Modality Radiographic Kendra ging 12/20/2023 1:52 PM EDT us External Provider IMG XR PROCEDURES Final Result documented in this encounter Visit Diagnoses Not on filedocumented in this encounter Additional Health Concerns Assessment Noted Time A fall risk assessment has been complete d for the patient 09/20/2023 2:37 PM EDT A Body Mass Index follow-up plan has been documented for the patient 09/25/2023 3:28 PM EDT documented as of this encounter Care Teams Salesperson Art Objects Relationship Specialty Start Date End Date Antwan Esparza MD [address] [place] [address] PCP - General 12/14/20 02/18/24 Inna Serrano APRN [address] [place] [address] PCP - General 02/19/24 Ángela Millard APRN [address] [place] [address] Nurse Practitioner Neurosurgery 09/17/21 documented as of this encounter
--- OUTSIDE RECORDS SUMMARY | 2024-12-09 14:44 | XMS_ITS | Encounter Summary ---
Author Organization Healthcare Address [address] [place] [address] Care Team Providers Care Student Liaison Officer Name Role Phone Antwan Esparza MD Primary Care Provider + [phone] Ángela Millard HVAC SERVICES PROFESSIONAL Unavailable [phone] Inna Serrano APRN Primary Care Provider + [phone] Encounter Details Date Type Department Care Team (Late st Contact Info) Description 03/08/2021 Orders Only External Location [address] [place] [address] Provider, External Social History Tobacco Use Types Packs/Day Years Used Date Smoking Tobacco: Every Day Smokeless Tobacco: Never Alcohol Use Standard Drinks/Week Comments No 0 (1 standard drink = 0.6 oz pure alcohol) Alcoholic Drinks/day: Never Drank Alcohol Sex and Gender Information Value Date Recorded Sex Assigned at Not on file Legal Sex Male 8:01 PM EDT Gender Identity Not on file Sexual Orientation Not on file documented as of this encounter Plan of Treatment Upcoming Encounters Date Type Department Care Team (Late Contact Info) Description 12/24/2024 2:50 PM EDT Office Visit [facility] [address], 1st [address] [place] [address] Apollo Torres DPM [address] [place] [address] 02/12/2025 3:00 PM EDT Office Visit Physical Medicine & Rehabilitation Clinic at [facility] [address] [place] [address] Leslie Suarez, [address] [place] [address] 09/30/2025 10:10 AM EDT Appointment [facility] Rad[facility] [address] [place] [address] 09/30/2025 11:30 AM EDT Office Visit [facility] [address], 2nd [place] [address] Aysha Crews MD [address] [place] [address] documented as of this encounter Procedures Procedure Name Priority Date/Time Associated Diagnosis Comments CT THORACIC OUTSIDE IMAGES 03/08/2021 2:34 PM EDT documented in this encounter Results * CT THORACIC OUTSIDE IMAGES (03/08/2021 2:34 PM EDT) Anatomical Region Laterality Modality Computed Tomogra phy 03/08/2021 2:34 PM EDT External Provider IMG CT PROCEDURES Final Result documented in this encounter Visit Diagnoses Not on filedocumented in this encounter Additional Health Concerns Assessment Noted Time A fall risk assessment has been complete d for the patient 12/14/2020 9:53 AM EDT documented as of this encounter Care Teams Student Liaison Officer Relationship Specialty Start Date End Date Antwan Esparza MD [address] [place] [address] PCP - General 12/14/20 02/18/24 Inna Serrano APRN [address] [place] [address] PCP - General 02/19/24 Ángela Millard APRN [address] [place] [address] Nurse Practitioner Neurosurgery 09/17/21 documented as of this encounter
--- OUTSIDE RECORDS SUMMARY | 2024-12-09 14:44 | XMS_ITS | Encounter Summary ---
Author Organization Healthcare Address [address] [place] [address] Care Team Providers Care Offbearer Sewer Pipe Name Role Phone Ángela Millard PROGRAM MANAGEMENT SPECIALIST Unavailable [phone] Inna Serrano PROGRAM MANAGEMENT SPECIALIST Primary Care Provider [phone] Reason for Visit * Reason Onset Date Comments HCN - Patient Message 10/03/2024 Encounter Details Date Type Department Care Team (Late st Contact Info) Description 10/03/2024 Telephone [facility] Orthopaedic Surgery & Sports Medicine [address], 1st [address] [place] [address] Sancho Gutierrez, DPLeland [address] [place] [address] HCN - Patient Message Social History Tobacco [...] encounter Miscellaneous Notes * Telephone Encounter - Jessie Brownlee - 10/04/2024 1:37 PM EDT Called and asked for ankle films to be PS and they said it was sent * Telephone Encounter - Germaine Hart - 10/03/2024 4:21 PM EDT Clinical Concern/Question Reason for Call: Ahmed patient calling to juan antonio Barney know that his Xrs should have been sent to clinic from [facility] via [employer] Best contact number: [phone] (mobile) Optimal time of day to reach caller: ANYTIME Additional comments/information from caller: None Note: Please do not reply to this message. Follow-up communication and further actions as a result of this message need to be communicated with the patient directly, if the patient is not active onMyChart. If the patient is active on MyChart, they will receive notification of the communication/outcome via [employer]. documented in this encounter Plan of Treatment Upcoming Encounters Date Type Department Care Team (Late st Contact Info) Description 12/24/2024 2:50 PM EDT Office Visit [facility] Orthopaedic Surgery & Sports Medicine [address], 1[address] [place] [address] Apollo Torres, DPLeland [address] [place] [address] 02/12/2025 3:00 PM EDT Office Visit Physical Medicine & Rehabilitation Clinic at [facility] [address] [place] [address] Leslie Suarez DO [address] [place] [address] 09/30/2025 10:10 AM EDT Appointment [facility]ino[facility] Radiology [address] [place] [address] 09/30/2025 11:30 AM EDT Office Visit [facility] [address] 2[address] [place] [address] Aysha Crews MD [address] [place] [address] documented as of this encounter Visit Diagnoses Not on filedocumented in this encounter Additional Health Concerns Assessment Noted Time A fall risk assessment has been complete d for the patient 09/24/2024 10:19 AM EDT A Body Mass Index follow-up plan has been documented for the patient 09/24/2024 12:24 PM EDT documented as of this encounter Care Teams Offbearer Sewer Pipe Relationship Specialty Start Date End Date Inna Serrano APRN [address] [place] [address] PCP - General 02/19/24 Ángela Millard, PROGRAM MANAGEMENT SPECIALIST [address] [place] [address] Nurse Practitioner Neurosurgery 09/17/21 documented as of this encounter
--- OUTSIDE RECORDS SUMMARY | 2024-12-09 14:44 | XMS_ITS | Encounter Summary ---
Author Organization Healthcare Address [address] [place] [address] Care Team Providers Care Tar Chaser Name Role Phone Antwan Esparza MD Primary Care Provider + [phone] Ángela Millard APRN Unavailable [phone] Inna Serrano APRN Primary Care Provider + [phone] Encounter Details Date Type Department Care Team ([facility] Contact Info) Description 12/24/2020 Orders Only External Location [address] [place] [address] Provider, External Social History Tobacco Use Types [...] Exposure Response Date Recorded In the last month, have you been in contact with someone who was confirmed or suspected to have Coronavirus / COVID-19? No / Unsure 12/14/2020 9:46 AM EDT documented as of this encounter Plan of Treatment Upcoming Encounters Date Type Department Care Team ([facility] Contact Info) Description 12/24/2024 2:50 PM EDT Office Visit [facility] [address] 1st [address] [place] [address] Apollo Torres, LOUIE [address] [place] [address] 02/12/2025 3:00 PM EDT Office Visit [facility] [address] [place] [address] Adonis Prince Leslie, [address] [place] [address] 09/30/2025 10:10 AM EDT Appointment [facility] Radiology [address] [place] [address] 09/30/2025 11:30 AM EDT Office Visit [facility] [address], 2nd [place] [address] Aysha Crews MD [address] [place] [address] documented as of this encounter Procedures Procedure Name Priority Date/Time Associated Diagnosis Comments XR THORACIC OUTSIDE IMAGES 12/24/2020 1:05 PM EDT documented in this encounter Results * XR THORACIC OUTSIDE IMAGES (12/24/2020 1:05 PM EDT) Anatomical Region Laterality Modality Radiographic Kendra ging 12/24/2020 1:05 PM EDT us External Provider IMG XR PROCEDURES Final Result documented in this encounter Visit Diagnoses Not on filedocumented in this encounter Additional Health Concerns Assessment Noted Time A fall risk assessment has been complete d for the patient 12/14/2020 9:53 AM EDT documented as of this encounter Care Teams Tar Chaser Relationship Specialty Start Date End Date Antwan Esparza MD [address] [place] [address] PCP - General 12/14/20 02/18/24 Inna Serrano APRN [address] [place] [address] PCP - General 02/19/24 Ángela Millard APRN [address] [address] Nurse Practitioner Neurosurgery 09/17/21 documented as of this encounter
--- OUTSIDE RECORDS SUMMARY | 2024-12-09 14:44 | XMS_ITS | Encounter Summary ---
Author Organization Healthcare Address [address] [place] [id number] Care Team Providers Care Laundry Machine Operator Name Role Phone Ángela Millard UNDERBASTER Unavailable [phone] Inna Serrano UNDERBASTER Primary Care Provider [phone] Encounter Details Date Type Department Care Team (Late st Contact Info) Description 10/23/2024 Telephone [facility] [address] [place] [address] Aysha Crews MD [address] [place] [address] Social History Tobacco Use Types Packs/Day Years [...] encounter Miscellaneous Notes * Telephone Encounter - Alison Jonas RN - 10/24/2024 12:11 PM EDT RN spoke w/ pt. Pt reports Monday pt saw his urologist and his blood pressure was 232/196. They took it 3x and still high every time. They sent pt to ED where they did an EKG and CXR. Discharged home. BP at time of discharge was 190/106. Congestive heart failure per com writer (seen today 10/24). Ordered a bunch of scans. Both arms andlegs are swollen. Feeling weak. Echo done in office. 'Heart skips when he lays down.' Podiatry appt on 11/26 to see if blood vessels are ok in feet or need addressed. Pt wanted to keep Dr. Crews in the loop on his health. RN will let Dr. Crews know and encouraged pt to call back if pt needed anything or had any questions. RN wished him the best. Pt verbalized understanding and agreeable to plan. * Telephone Encounter - Jag Lott - 10/23/2024 2:29 PM EDT Patient Phone Message Reason for Call: Patient called requesting call back from Dr. Crews or her nurse. He was in the ED recently and would like to discuss his symptoms and advice/next steps. Please call back to discuss. Best contact number and optimal time of day to reach caller: Luca: [phone] Note: Please do not reply to this message. Follow-up communication and further actions as a result of this message need to be communicated with the patient directly, if the patient is not active onMyChart. If the patient is active on MyChart, they will receive notification of the communication/outcome via [employer]. documented in this encounter Plan of Treatment Upcoming Encounters Date Type Department Care Team (Late st Contact Info) Description 12/24/2024 2:50 PM EDT Office Visit [facility] Orthopaedic Surgery & Sports Medicine [address] [place] [address] Apollo Torres, LOUIE [address] [place] [address] 02/12/2025 3:00 PM EDT Office Visit [facility] [address] [place] [address] Adonis Prince Leslie, [address] [place] [address] 09/30/2025 10:10 AM EDT Appointment [facility] Radiology [address] [place] [address] 09/30/2025 11:30 AM EDT Office Visit [facility] [address] [place] [address] Aysha Crews MD [address] [place] [address] documented as of this encounter Visit Diagnoses Not on filedocumented in this encounter Additional Health Concerns Assessment Noted Time A fall risk assessment has been complete d for the patient 09/24/2024 10:19 AM EDT A Body Mass Index follow-up plan has been documented for the patient 09/24/2024 12:24 PM EDT documented as of this encounter Care Teams Laundry Machine Operator Relationship Specialty Start Date End Date Inna Serrano APRN [address] [place], [place] [id number] PCP - General 02/19/24 Ángela Millard APRN [address] [place] [address] Nurse Practitioner Neurosurgery 09/17/21 documented as of this encounter
--- OUTSIDE RECORDS SUMMARY | 2024-12-09 14:44 | XMS_ITS | Encounter Summary ---
Author Organization Healthcare Address [address] [place] [address] Care Team Providers Care Timber Hewer Name Role Phone Ángela Millard SPIKE DRIVER Unavailable [phone] Inna Serrano SPIKE DRIVER Primary Care Provider [phone] Reason for Visit * Reason Onset Date Comments HCN - Patient Message 10/02/2024 Encounter Details Date Type Department Care Team (Late st Contact Info) Description 10/02/2024 Telephone [facility] Orthopaedic Surgery & Sports Medicine [address] [place] [address] Sancho Gutierrez, DPLeland [address] [place] [address] HCN - Patient Message Social [...] Telephone Encounter - Jessie Brownlee - 10/04/2024 8:05 AM EDT PACS told patient what I had received. I will ask [facility] to PS xrays again * Telephone Encounter - Omkar Thurman - 10/02/2024 10:40 AM EDT Clinical Concern/Question Reason for Call: Pt called to confirm receipt of PFAS lab results from [facility] ahead of his upcoming appt with Dr. Gutierrez. Best contact number: [phone] (mobile) Optimal time of day to reach caller: ANYTIME Additional comments/information from caller: None Note: Please do not reply to this message. Follow-up communication and further actions as a result of this message need to be communicated with the patient directly, if the patient is not active onMyChart. If the patient is active on MyChart, they will receive notification of the communication/outcome via [employer]. documented in this encounter Plan of Treatment Upcoming Encounters Date Type Department Care Team (Late st Contact Info) Description 12/24/2024 2:50 PM EDT Office Visit [facility] Orthopaedic Surgery & Sports Medicine [address] [place] [address] Apollo Torres, LOUIE [address] [place] [address] 02/12/2025 3:00 PM EDT Office Visit [facility] [address] [place] [address] Leslie Suarez DO [address] [place] [address] 09/30/2025 10:10 AM EDT Appointment [facility] Radiology [address] [place] [address] 09/30/2025 11:30 AM EDT Office Visit [facility] [address], [address] [place] [address] Aysha Crews MD [address] [place] [address] documented as of this encounter Visit Diagnoses Not on filedocumented in this encounter Additional Health Concerns Assessment Noted Time A fall risk assessment has been complete d for the patient 09/24/2024 10:19 AM EDT A Body Mass Index follow-up plan has been documented for the patient 09/24/2024 12:24 PM EDT documented as of this encounter Care Teams Timber Hewer Relationship Specialty Start Date End Date Inna Serrano APRN [address] [place] [address] PCP - General 02/19/24 Ángela Millard APRN [address] [place] [address] Nurse Practitioner Neurosurgery 09/17/21 documented as of this encounter
--- OUTSIDE RECORDS SUMMARY | 2024-12-09 14:44 | XMS_ITS | Encounter Summary ---
Author Organization Healthcare Address [address] [place] [address] Care Team Providers Care Telegraph Mechanic Name Role Phone Antwan Esparza MD Primary Care Provider + [phone] Ángela Millard COMPUTER NUMERICAL CONTROL PROGRAMMER Unavailable [phone] Inna Serrano APRN Primary Care Provider + [phone] Encounter Details Date Type Department Care Team (Late st Contact Info) Description 02/01/2021 Orders Only External Location [address] [place] [address] Provider, External Social History Tobacco Use Types [...] Description 12/24/2024 2:50 PM EDT Office Visit [facility] Surgery [facility] [address], [address] [place] [address] Apollo Torres DPM [address] [place] [address] 02/12/2025 3:00 PM EDT Office Visit [facility] at [facility] [address] [place] [address] Leslie Suarez, [address] [place] [address] 09/30/2025 10:10 AM EDT Appointment [facility] Radiology [address] [place] [address] 09/30/2025 11:30 AM EDT Office Visit [facility] [address], [address] [place] [address] Aysha Crews MD [address] [place] [address] documented as of this encounter Procedures Procedure Name Priority Date/Time Associated Diagnosis Comments XR OUTSIDE IMAGES 02/01/2021 1:29 PM EDT documented in this encounter Results * XR OUTSIDE IMAGES (02/01/2021 1:29 PM EDT) Anatomical Region Laterality Modality Radiographic Kendra ging 02/01/2021 1:29 PM EDT us External Provider IMG XR PROCEDURES Final Result documented in this encounter Visit Diagnoses Not on filedocumented in this encounter Additional Health Concerns Assessment Noted Time A fall risk assessment has been complete d for the patient 12/14/2020 9:53 AM EDT documented as of this encounter Care Teams Telegraph Mechanic Relationship Specialty Start Date End Date Antwan Esparza MD [address] [place] [address] PCP - General 12/14/20 02/18/24 Inna Serrano APRN [address] [place] [address] PCP - General 02/19/24 Ángela Millard APRN [address] [place] [address] Nurse Practitioner Neurosurgery 09/17/21 documented as of this encounter
--- OUTSIDE RECORDS SUMMARY | 2024-12-09 14:44 | XMS_ITS | Encounter Summary ---
Author Organization Healthcare Address [address] [place] [address] Care Team Providers Care Trust Officer Name Role Phone Antwan Esparza MD Primary Care Provider + [phone] Ángela Millard APRN Unavailable [phone] Inna Serrano APRN Primary Care Provider + [phone] Encounter Details Date Type Department Care Team ([facility] Contact Info) Description 08/06/2021 Orders Only External Location [address] [place] [address] Provider, External Social History Tobacco Use Types [...] have Coronavirus / COVID-19? No / Unsure 07/26/2021 10:11 AM EST documented as of this encounter Plan of Treatment Upcoming Encounters Date Type Department Care Team ([facility] Contact Info) Description 12/24/2024 2:50 PM EDT Office Visit [facility] [address] [place] [address] Apollo Torres, LOUIE [address] [place] [address] 02/12/2025 3:00 PM EDT Office Visit [facility] [address] [place] [address] Adonis PrinceLeslie, DO [address] [place] [address] 09/30/2025 10:10 AM EDT Appointment [facility] Radiology [address] [place] [address] 09/30/2025 11:30 AM EDT Office Visit [facility] Res[facility] [address] [place] [address] Aysha Crews MD [address] [place] [address] documented as of this encounter Procedures Procedure Name Priority Date/Time Associated Diagnosis Comments CT THORACIC OUTSIDE IMAGES 08/06/2021 12:28 PM EDT documented in this encounter Results * CT THORACIC OUTSIDE IMAGES (08/06/2021 12:28 PM EDT) Anatomical Region Laterality Modality Computed Tomogra phy 08/06/2021 12:2 8 PM EDT us External Provider IMG CT PROCEDURES Final Result documented in this encounter Visit Diagnoses Not on filedocumented in this encounter Additional Health Concerns Assessment Noted Time A fall risk assessment has been complete d for the patient 12/14/2020 9:53 AM EDT documented as of this encounter Care Teams Trust Officer Relationship Specialty Start Date End Date Antwan Esparza MD [address] [place] [address] PCP - General 12/14/20 02/18/24 Inna Serrano APRN [address] [place] [address] PCP - General 02/19/24 Ángela Millard APRN [address] [facility] [place] [address] Nurse Practitioner Neurosurgery 09/17/21 documented as of this encounter
--- OUTSIDE RECORDS SUMMARY | 2024-12-09 14:44 | XMS_ITS | Encounter Summary ---
Author Organization Healthcare Address [address] [place] [address] Care Team Providers Care Nurse Wound Name Role Phone Antwan Esparza MD Primary Care Provider + [phone] Ángela Millard RECORD CUTTER Unavailable [phone] Inna Serrano APRN Primary Care Provider + [phone] Encounter Details Date Type Department Care Team (Late st Contact Info) Description 02/01/2021 Orders Only External Location [address] [place] [address] Provider, External Social History Tobacco Use Types [...] Description 12/24/2024 2:50 PM EDT Office Visit [facility] [address] [place] [address] Apollo Torres DPM [address] [place] [address] 02/12/2025 3:00 PM EDT Office Visit [facility] Medicine & Rehabilitation Clinic at [facility] [address] [place] [address] Leslie Suarez, [address] [place] [address] 09/30/2025 10:10 AM EDT Appointment [facility] Radiology [address] [place] [address] 09/30/2025 11:30 AM EDT Office Visit [facility] Res[facility] [address] [place] [address] Aysha Crews MD [address] [place] [address] documented as of this encounter Procedures Procedure Name Priority Date/Time Associated Diagnosis Comments US OUTSIDE IMAGES 02/01/2021 1:55 PM EDT documented in this encounter Results * US OUTSIDE IMAGES (02/01/2021 1:55 PM EDT) Anatomical Region Laterality Modality Ultrasound 02/01/2021 1:55 PM EDT us External Provider IMG US PROCEDURES Final Result documented in this encounter Visit Diagnoses Not on filedocumented in this encounter Additional Health Concerns Assessment Noted Time A fall risk assessment has been complete d for the patient 12/14/2020 9:53 AM EDT documented as of this encounter Care Teams Nurse Wound Relationship Specialty Start Date End Date Antwan Esparza MD [address] [place] [address] PCP - General 12/14/20 02/18/24 Inna Serrano APRN [facility] [place] [address] PCP - General 02/19/24 Ángela Millard APRN [address] [place] [address] Nurse Practitioner Neurosurgery 09/17/21 documented as of this encounter
--- OUTSIDE RECORDS SUMMARY | 2024-12-09 14:44 | XMS_ITS | Clinical Summary ---
Author Organization [facility] Address [address] [place] [address] Phone Care Team Providers Care Manager Client Name Role Phone Unavailable Primary Care Provider Unavailabl e Allergies Active Allergy Reactions Criticality Noted Date Comments Androgenic Anabolic Steroid 05/28/19 11 Ciprofloxacin 05/28/2010 Erythromycin 05/28/2010 Iodinated Contrast Media 05/28/2010 Penicillins 05/28/2010 Medications VALPROIC ACID ORAL Take by mouth. Active methocarbamol (ROBAXIN) 750 mg Take 750 mg by mouth every 4 hours. Active Medical History Medical History Date Comments Migraines CAD (coronary artery disease) Social History Tobacco Use Types Packs/Day Years Used Date Smoking Tobacco: Every Day Cigarettes Sex and Gender Information Value Date Recorded Sex Assigned at Not on file Legal Sex Male 8:16 PM EDT Gender Identity Not on file Sexual Orientation Not on file Obstetrics History Last Filed Vital Signs Vital Sign Reading Time Taken Comments Blood Pressure 150/81 05/28/2010 10:22 PM EST Pulse 72 05/28/2010 10:22 PM EST Temperature 36.6 C (97.8 F) 05/28/2010 5:53 PM EST Respiratory Rate 18 05/28/2010 10:22 PM EST Oxygen Saturation 96% 05/28/2010 8:16 PM EST Inhaled Oxygen Concentration - - Weight - - Height - - Body Mass Index - - Plan of Treatment Health Maintenance Due Date Last Done Comments Annual Wellness Exam 11/13/1970 DTaP/TDaP/Td (1 - Tdap) 11/13/1986 Hepatitis B Vaccine (1 of 3 - 19+ 3-dose series) 11/13/1986 Cologuard 11/13/2012 Colon Cancer Screening 11/13/2012 Colonoscopy 11/13/2012 FIT 11/13/2012 Sigmoidoscopy 11/13/2012 Virtual Colonography 11/13/2012 Pneumococcal Vaccine 50+ (1 of 1 - PCV) 11/13/2017 Zoster (1 of 2) 11/13/2017 COVID-19 Vaccine (1 - 2023-2 5 season) 2024 Influenza Vaccine (#1) 2025 Meningococcal B Vaccine Aged Out No l onger eligible based on patient's age to complete this topic Insurance [employer] [facility] [place] [id number] [facility] [id number] [facility]
--- OUTSIDE RECORDS SUMMARY | 2024-12-09 14:44 | XMS_ITS | Encounter Summary ---
Author Organization Healthcare Address [address] [place] [address] Care Team Providers Care Production Machine Shop Supervisor Name Role Phone Antwan Esparza MD Primary Care Provider + [phone] Ángela Millard ANTIQUE COLLECTOR Unavailable [phone] Inna Serrano APRN Primary Care Provider + [phone] Encounter Details Date Type Department Care Team (Late st Contact Info) Description 10/06/2023 Orders Only External Location [address] [place] [address] Provider, External Social History Tobacco Use Types Packs/Day Years Used Date Smoking Tobacco: Every Day Cigarettes Smokeless Tobacco: Never Alcohol Use Standard Drinks/Week Comments No 0 (1 standard drink = 0.6 oz pure alcohol) Alcoholic Drinks/day: Never Drank Alcohol PHQ-2 Answer Date Recorded Patient Health Questionnaire-2 Score 0 09/20/2023 PHQ-2A Answer Date Recorded Patient Health Questionnaire-2 [...] Description 12/24/2024 2:50 PM EDT Office Visit [facility] [address] [place] [address] Apollo Torres, LOUIE [address] [place] [address] 02/12/2025 3:00 PM EDT Office Visit [facility] [address] [place] [address] Adonis PrinceLeslie gibson DO [address] [place] [address] 09/30/2025 10:10 AM EDT Appointment [facility] Rad[facility] [address] [place] [address] 09/30/2025 11:30 AM EDT Office Visit [facility] Res[facility] [address] [place] [address] Aysha Crews MD [address] [facility] [address] [place] [address] documented as of this encounter Procedures Procedure Name Priority Date/Time Associated Diagnosis Comments XR OUTSIDE IMAGES 10/06/2023 9:42 AM EDT documented in this encounter Results * XR OUTSIDE IMAGES (10/06/2023 9:42 AM EDT) Anatomical Region Laterality Modality Radiographic Kendra ging 10/06/2023 9:42 AM EDT us External Provider IMG XR PROCEDURES [...] documented as of this encounter Care Teams Production Machine Shop Supervisor Relationship Specialty Start Date End Date Antwan Esparza MD [address] [place] [address] PCP - General 12/14/20 02/18/24 Inna Serrano APRN [facility] [place] [address] PCP - General 02/19/24 Ángela Millard APRN [address] [place] [address] Nurse Practitioner Neurosurgery 09/17/21 documented as of this encounter
--- OUTSIDE RECORDS SUMMARY | 2024-12-09 14:44 | XMS_ITS | Encounter Summary ---
Author Organization Healthcare Address [address] [place] [address] Care Team Providers Care Vision Teacher Name Role Phone Delmer Fritz MD Primary Care Provider [phone] Antwan Esparza MD Primary Care Provider + [phone] Ángela Millard VERTICA ARCHITECT Unavailable [phone] Inna Serrano APRN Primary Care Provider + [phone] Encounter Details Date Type Department Care Team (Late st Contact Info) Description 09/01/2020 Orders Only External Location [address] [place] [address] Provider, External Social History Tobacco Use Types [...] Description 12/24/2024 2:50 PM EDT Office Visit [facility] [address] [place] [address] Apollo Torres, LOUIE [address] [place] [address] 02/12/2025 3:00 PM EDT Office Visit [facility] at [facility] [address] [place] [address] Leslie Suarez, DO [address] [place] [address] 09/30/2025 10:10 AM EDT Appointment [facility] Rad[facility] [address] [place] [address] 09/30/2025 11:30 AM EDT Office Visit [facility] [address] [place] [address] Aysha Crews MD [address] [place] [address] documented as of this encounter Procedures Procedure Name Priority Date/Time Associated Diagnosis Comments CT THORACIC OUTSIDE IMAGES 09/01/2020 2:48 PM EDT documented in this encounter Results * CT THORACIC OUTSIDE IMAGES (09/01/2020 2:48 PM EDT) Anatomical Region Laterality Modality Computed Tomogra phy 09/01/2020 2:48 PM EDT us External Provider IMG CT PROCEDURES Final Result documented in this encounter Visit Diagnoses Not on filedocumented in this encounter Care Teams Vision Teacher Relationship Specialty Start Date End Date Delmer Fritz MD [address] [facility] [address] [place] [address] PCP - General 10/02/20 12/13/20 Antwan Esparza MD [address] [place], [place] [address] PCP - General 12/14/20 02/18/24 Inna Serrano APRN [facility] [place] [address] PCP - General 02/19/24 Ángela Millard APRN [address] [place] [address] Nurse Practitioner Neurosurgery 09/17/21 documented as of this encounter
--- OUTSIDE RECORDS SUMMARY | 2024-12-09 14:44 | XMS_ITS | Encounter Summary ---
Author Organization Healthcare Address [address] [place] [address] Care Team Providers Care Weaving Machine Operator Name Role Phone Ángela Millard MANAGER BEAUTY Unavailable [phone] Inna Serrano APRN Primary Care Provider [phone] Reason for Visit * Reason Onset Date Comments HCN Status Update Call #1 10/21/2024 Encounter Details Date Type Department Care Team (Late st Contact Info) Description 10/21/2024 Telephone Physical Medicine & Rehabilitation Clinic at [facility] [address] [place] [address] Leslie Suarez DO [address] [place] [address] HCN Status Update Call #1 Social History Tobacco Use Types Packs/Day Years [...] encounter Miscellaneous Notes * Telephone Encounter - Poly Squires - 10/21/2024 3:24 PM EDT Called pt back, he stated that they sent him to ER because BP is 220/186 legs and feet are swollen. * Telephone Encounter - Malena Edmond Ekaterina - 10/21/2024 10:35 AM EDT Status Update Call #1 1st call regarding the status of the initial request. Best contact number: [phone] (mobile) Optimal time of day to reach [...] receive notification of the communication/outcome via MyChart. * Telephone Encounter - Macy Green - 10/21/2024 9:08 AM EDT Clinical Concern/Question Reason for Call: Dr. Morrison pt. This pt wanting to let Dr. Morrison know that he is seeing a providerfor his kidneys today at 1 pm. He is requesting a call back from clinical staff after his appt today. Best contact number: [phone] (mobile) Optimal time of day to reach [...] Description 12/24/2024 2:50 PM EDT Office Visit [facility] Orthopaedic Surgery & Sports Medicine [address], 1[address] [place] [address] Apollo Torres, DPLeland [address] [place] [address] 02/12/2025 3:00 PM EDT Office Visit Physical Medicine & Rehabilitation Clinic at [facility] [address] [place] [address] Leslie Suarez DO [address] [place] [address] 09/30/2025 10:10 AM EDT Appointment [facility] Radiology [address] [place] [address] 09/30/2025 11:30 AM EDT Office Visit [facility] Res[facility] [address]nd [place] [address] Aysha Crews MD [address] [place] [address] documented as of this encounter Visit Diagnoses Not on filedocumented in this encounter Additional Health Concerns Assessment Noted Time A fall risk assessment has been complete d for the patient 09/24/2024 10:19 AM EDT A Body Mass Index follow-up plan has been documented for the patient 09/24/2024 12:24 PM EDT documented as of this encounter Care Teams Weaving Machine Operator Relationship Specialty Start Date End Date Inna Serrano APRN [facility] [place] [address] PCP - General 02/19/24 Ángela Millard APRN [address] [place] [address] Nurse Practitioner Neurosurgery 09/17/21 documented as of this encounter
--- OUTSIDE RECORDS SUMMARY | 2024-12-09 14:44 | XMS_ITS | Encounter Summary ---
Author Organization Healthcare Address [address] [place] [address] Care Team Providers Care Geochemical Laboratory Technician Name Role Phone Ángela Millard SIZE ROLLER OPERATOR Unavailable [phone] Inna Serrano SIZE ROLLER OPERATOR Primary Care Provider [phone] Reason for Visit * Reason Onset Date Comments HCN - Patient Message 10/31/2024 HCN Status Update Call #1 10/31/2024 Encounter Details Date Type Department Care Team (Late st Contact Info) Description 10/31/2024 Telephone Physical Medicine & Rehabilitation Clinic at [facility] [address] [place] [address] Leslie Suarez DO [address] [facility] [address] [place] [address] HCN - Patient Message; HCN Status Update Call #1 Social History [...] Telephone Encounter - Leslie Suarez DO - 11/05/2024 2:30 PM EDT Noted thanks for letting me know. 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 * Telephone Encounter - Nikki Garg - 11/05/2024 8:37 AM EDT Status Update Call #2 2nd call regarding the status of the initial request. Best contact number: [phone] (mobile) Optimal time of day to reach caller: ANYTIME Additional comments/information from caller: Patient is calling about what the neurologist said andwould like to speak with a nurse to let provider know. I sent a SM, but no one was available to take the call. Note: Please do not reply to this message. Follow-up communication and further actions as a result of this message need to be communicated with the patient directly, if the patient is not active onMyChart. If the patient is active on MyChart, they will receive notification of the communication/outcome via MyChart. * Telephone Encounter - Carissa Fried - 10/31/2024 1:22 PM EDT Clinical Concern/Question SANDIE Reason for Call: Patient calling stating his lokie engineer is referring him to vascular surgery because he has severe leg swelling and was told he has blockages . He said he wants Dr. Morrison to know this. Best contact number: [phone] (mobile) Optimal time of day to reach [...] Description 12/24/2024 2:50 PM EDT Office Visit [facility] [address], 1[address] [place] [address] Apollo Torres, LOUIE [address] [place] [address] 02/12/2025 3:00 PM EDT Office Visit [facility] at [facility] [address] [place] [address] Leslie Suarez DO [address] [facility] [address] [place] [address] 09/30/2025 10:10 AM EDT Appointment [facility] G Radiology [address] [place] [address] 09/30/2025 11:30 AM EDT Office Visit [facility] Respiratory [address] [facility], 2nd [place] [address] Aysha Crews MD [address] [place] [address] documented as of this encounter Visit Diagnoses Not on filedocumented in this encounter Additional Health Concerns Assessment Noted Time A fall risk assessment has been complete d for the patient 09/24/2024 10:19 AM EDT A Body Mass Index follow-up plan has been documented for the patient 09/24/2024 12:24 PM EDT documented as of this encounter Care Teams Geochemical Laboratory Technician Relationship Specialty Start Date End Date Inna Serrano APRN [address] [place] [address] PCP - General 02/19/24 Ángela Millard APRN [address] [place] [address] Nurse Practitioner Neurosurgery 09/17/21 documented as of this encounter
--- OUTSIDE RECORDS SUMMARY | 2024-12-09 14:44 | XMS_ITS | Encounter Summary ---
Author Organization Healthcare Address [address] [place] [address] Care Team Providers Care Sewing Machine Attachment Tester Name Role Phone Antwan Esparza MD Primary Care Provider [phone] Ángela Millard BATCHER OPERATOR Unavailable [phone] Inna Serrano APRN Primary Care Provider + [phone] Encounter Details Date Type Department Care Team (Late st Contact Info) Description 10/06/2023 Orders Only External Location [address] [place] [address] Provider, External Social History Tobacco Use Types [...] Description 12/24/2024 2:50 PM EDT Office Visit [place] [facility] [address], 1[address] [place] [address] Apollo Torres, LOUIE [address] [place] [address] 02/12/2025 3:00 PM EDT Office Visit [facility] at [facility] [address] [place] [address] Adonis Prince LeslieDO [address] [place] [address] 09/30/2025 10:10 AM EDT Appointment [facility] G Radiology [address] [place] [address] 09/30/2025 11:30 AM EDT Office Visit [facility] [address], [address]nd [place] [address] Aysha Crews MD [address] [facility] [address] [place] [address] documented as of this encounter Procedures Procedure Name Priority Date/Time Associated Diagnosis Comments CT OUTSIDE IMAGES 10/06/2023 10:33 AM EDT documented in this encounter Results * CT OUTSIDE IMAGES (10/06/2023 10:33 AM EDT) Anatomical Region Laterality Modality Computed Tomogra phy 10/06/2023 10:3 3 AM EDT us External Provider IMG CT PROCEDURES [...] documented as of this encounter Care Teams Sewing Machine Attachment Tester Relationship Specialty Start Date End Date Antwan Esparza MD [address] [place] [address] PCP - General 12/14/20 02/18/24 Inna Serrano APRN [facility] [place] [address] PCP - General 02/19/24 Ángela Millard APRN [address] [place] [address] Nurse Practitioner Neurosurgery 09/17/21 documented as of this encounter
--- OUTSIDE RECORDS SUMMARY | 2024-12-09 14:44 | XMS_ITS | Encounter Summary ---
Author Organization [facility] Address [address] [place] [address] Care Team Providers Care Roller Coaster Engineer Name Role Phone Ángela Millard RADIO REPAIRMAN Unavailable [phone] Inna Serrano APRN Primary Care Provider [phone] Reason for Visit * Reason Onset Date Comments HCN Clinical Concern/Question 10/22/2024 Encounter Details Date Type Department Care Team (Late st Contact Info) Description 10/22/2024 Telephone Physical Medicine & Rehabilitation Clinic at [facility] [address] [facility] [place] [address] Leslie Suarez DO [address] [facility] [address] [place] [address] HCN Clinical Concern/Question Social History Tobacco Use Types Packs/Day Years [...] Telephone Encounter - Leslie Suarez DO - 10/22/2024 2:57 PM EDT Noted and thanks for letting me know. * Telephone Encounter - Poly Squires - 10/22/2024 1:10 PM EDT I spoke with pt and he stated that they found out at the ER that he has kidney disease his R kidneyis filled with blood. Pt has to go back in two weeks to see them. The reason way his BP was high isbecause of his leg and feet being swollen. They recommended for him to go see his sueding and buffing machine operator for Xray's and for a possible inpatient. * Telephone Encounter - Leta Fraser - 10/22/2024 8:52 AM EDT Clinical Concern/Question Reason for Call: patient is requesting a call back from Dr. Morrison nurse regarding hi recent ER visit Best contact number: [phone] (mobile) Optimal time of day to reach caller: ANYTIME Additional comments/information from caller: None Note: Please do not reply to this message. Follow-up communication and further actions as a result of this message need to be communicated with the patient directly, if the patient is not active onMyChart. If the patient is active on MyChart, they will receive notification of the communication/outcome via WigWaghart. documented in this encounter Plan of Treatment Upcoming Encounters Date Type Department Care Team (Late st Contact Info) Description 12/24/2024 2:50 PM EDT Office Visit [facility] [address] 1[address] [place] [address] Apollo Torres, LOUIE [address] [place] [address] 02/12/2025 3:00 PM EDT Office Visit Physical Medicine & Rehabilitation Clinic at [facility] [address] [place] [address] Leslie Suarez DO [address] [place] [address] 09/30/2025 10:10 AM EDT Appointment [facility] G Radiology [address] [place] [address] 09/30/2025 11:30 AM EDT Office Visit [facility] Res[facility] [address] 2nd [place] [address] Aysha Crews MD [address] [place] [address] documented as of this encounter Visit Diagnoses Not on filedocumented in this encounter Additional Health Concerns Assessment Noted Time A fall risk assessment has been complete d for the patient 09/24/2024 10:19 AM EDT A Body Mass Index follow-up plan has been documented for the patient 09/24/2024 12:24 PM EDT documented as of this encounter Care Teams Roller Coaster Engineer Relationship Specialty Start Date End Date Inna Serrano, RADIO REPAIRMAN [address] [place], [place] [id number] PCP - General 02/19/24 Ángela Millard APRN [address] [place] [address] Nurse Practitioner Neurosurgery 09/17/21 documented as of this encounter
--- OUTSIDE RECORDS SUMMARY | 2024-12-09 14:45 | XMS_ITS | Encounter Summary ---
Author Organization Healthcare Address [address] [place] [address] Care Team Providers Care Title Search Manager Name Role Phone Antwan Esparza MD Primary Care Provider [phone] Ángela Millard NEWSPAPER MANAGING EDITOR Unavailable [phone] Inna Serrano NEWSPAPER MANAGING EDITOR Primary Care Provider + [phone] Encounter Details Date Type Department Care Team (Late Contact Info) Description 07/06/2022 Orders Only External Location [address] [place] [address] Damien Childs MD [address] [facility] [address] [place] [address] Social History Tobacco Use Types Packs/Day Years [...] Description 12/24/2024 2:50 PM EDT Office Visit [facility] [address], 1[address] [place] [address] Apollo Torres DPM [address] [place] [address] 02/12/2025 3:00 PM EDT Office Visit [facility] at [facility] [address] [place] [address] Adonis PrinceLeslie gibson, DO [address] [place] [address] 09/30/2025 10:10 AM EDT Appointment [facility] Radiology [address] [place] [address] 09/30/2025 11:30 AM EDT Office Visit [facility] [address], 2nd [place] [address] Aysha Crews MD [address] [facility] [address] [place] [address] documented as of this encounter Procedures Procedure Name Priority Date/Time Associated Diagnosis Comments NM OUTSIDE IMAGES 07/06/2022 8:58 AM EST documented in this encounter Results * NM OUTSIDE IMAGES (07/06/2022 8:58 AM EST) Anatomical Region Laterality Modality Nuclear Medicine 07/06/2022 8:58 AM EST Damien Childs MD IMG NM PROCEDURES Final Result documented in this encounter Visit Diagnoses Not on filedocumented in this encounter Additional Health Concerns Assessment Noted Time A fall risk assessment has been complete d for the patient 04/25/2022 1:12 PM EST documented as of this encounter Care Teams Title Search Manager Relationship Specialty Start Date End Date Antwan Esparza MD [address] [place] [address] PCP - General 12/14/20 02/18/24 Inna Serrano APRN [address] [place] [address] PCP - General 02/19/24 Ángela Millard APRN [address] [place] [address] Nurse Practitioner Neurosurgery 09/17/21 documented as of this encounter
--- OUTSIDE RECORDS SUMMARY | 2024-12-09 14:45 | XMS_ITS | Encounter Summary ---
Author Organization Healthcare Address [address] [place] [address] Care Team Providers Care Oceanography Professor Name Role Phone Antwan Esparza MD Primary Care Provider [phone] Ángela Millard SALESFORCE CONSULTANT Unavailable [phone] Inna Serrano APRN Primary Care Provider + [phone] Encounter Details Date Type Department Care Team (Late Contact Info) Description 04/06/2022 Orders Only External Location [address] [place] [address] [address] [address] Social History Tobacco Use Types Packs/Day Years Used Date Smoking Tobacco: Every Day Cigarettes Smokeless Tobacco: Never Alcohol Use Standard Drinks/Week Comments No 0 (1 standard drink = 0.6 oz pure alcohol) Alcoholic Drinks/day: Never Drank Alcohol PHQ-2 Answer Date Recorded Patient Health Questionnaire-2 Score 0 11/01/2021 Sex and Gender Information Value Date Recorded Sex Assigned at Not on file Legal Sex Male 8:01 PM EDT Gender Identity Not on file Sexual Orientation Not on file documented as of this encounter Plan of Treatment Upcoming Encounters Date Type Department Care Team (Late Contact Info) Description 12/24/2024 2:50 PM EDT Office Visit [place] [facility] [address] 1[address] [place] [address] Apollo Torres, LOUIE [address] [place] [address] 02/12/2025 3:00 PM EDT Office Visit [facility] at [facility] [address] [place] [address] Adonis Prince Leslie [address] [place] [address] [place] [address] 09/30/2025 10:10 AM EDT Appointment [facility] G Radiology [address] [place] [address] 09/30/2025 11:30 AM EDT Office Visit [facility] Res[facility] [address], [address]nd [place] [address] Aysha Cerws MD [address] [place] [address] documented as of this encounter Procedures Procedure Name Priority Date/Time Associated Diagnosis Comments MR MSK OUTSIDE IMAGES 04/06/2022 1:22 PM EST documented in this encounter Results * MR MSK OUTSIDE IMAGES (04/06/2022 1:22 PM EST) Anatomical Region Laterality Modality Magnetic Resonan ce 04/06/2022 1:22 PM EST Petra Regalado [facility] MRI PROCEDURES Final Result documented in this encounter Visit Diagnoses Not on filedocumented in this encounter Additional Health Concerns Assessment Noted Time A fall risk assessment has been complete d for the patient 01/31/2022 1:51 PM EDT documented as of this encounter Care Teams Oceanography Professor Relationship Specialty Start Date End Date Antwan Esparza MD [address] [place] [address] PCP - General 12/14/20 02/18/24 Inna Serrano APRN [address] [place] [address] PCP - General 02/19/24 Ángela Millard APRN [address] [address] Nurse Practitioner Neurosurgery 09/17/21 documented as of this encounter
--- OUTSIDE RECORDS SUMMARY | 2024-12-09 14:45 | XMS_ITS | Encounter Summary ---
Author Organization Healthcare Address [address] [place] [address] Care Team Providers Care Bench Inspector Name Role Phone Delmer Fritz MD Primary Care Provider [phone] Antwan Esparza MD Primary Care Provider + [phone] Ángela Millard TAFE LECTURER Unavailable [phone] Inna Serrano APRN Primary Care Provider + [phone] Encounter Details Date Type Department Care Team (Late st Contact Info) Description 08/27/2018 Orders Only External Location [address] [place] [address] Provider, External Social History Tobacco Use Types [...] Description 12/24/2024 2:50 PM EDT Office Visit [place] [facility] [address] [place] [address] Apollo Torres, LOUIE [address] [place] [address] 02/12/2025 3:00 PM EDT Office Visit Physical Medicine & Rehabilitation Clinic at [facility] [address] [place] [address] Cordelia Suareza, DO [address] [place] [address] 09/30/2025 10:10 AM EDT Appointment [facility] Radiology [address] [place] [address] 09/30/2025 11:30 AM EDT Office Visit [facility] [address] [place] [address] Aysha Crews MD [address] [place] [address] documented as of this encounter Procedures Procedure Name Priority Date/Time Associated Diagnosis Comments CT OUTSIDE IMAGES 08/27/2018 1:15 PM EDT documented in this encounter Results * CT OUTSIDE IMAGES (08/27/2018 1:15 PM EDT) Anatomical Region Laterality Modality Computed Tomogra phy 08/27/2018 1:15 PM EDT us External Provider IMG CT PROCEDURES Final Result documented in this encounter Visit Diagnoses Not on filedocumented in this encounter Care Teams Bench Inspector Relationship Specialty Start Date End Date Delmer Fritz MD [address] [facility] [address] [place] [address] PCP - General 10/02/20 12/13/20 Antwan Esparza MD [address] [place] [address] PCP - General 12/14/20 02/18/24 Inna Serrano APRN [address] [place] [address] PCP - General 02/19/24 Ángela Millard APRN [address] [place] [address] Nurse Practitioner Neurosurgery 09/17/21 documented as of this encounter
--- OUTSIDE RECORDS SUMMARY | 2024-12-09 14:45 | XMS_ITS | Encounter Summary ---
Author Organization Healthcare Address [address] [place] [address] Care Team Providers Care Operations Recruiter Name Role Phone Delmer Fritz MD Primary Care Provider [phone] Antwan Esparza MD Primary Care Provider + [phone] Ángela Millard PURCHASING/RECEIVING Unavailable [phone] Inna Serrano APRN Primary Care Provider + [phone] Encounter Details Date Type Department Care Team (Late st Contact Info) Description 02/08/2017 Orders Only External Location [address] [place] [address] Provider, External Social History Tobacco Use Types [...] Description 12/24/2024 2:50 PM EDT Office Visit [facility] [address] 1[address] [place] [address] Apollo Torres, LOUIE [address] [place] [address] 02/12/2025 3:00 PM EDT Office Visit Physical Medicine & Rehabilitation Clinic at [facility] [address] [place] [address] Adonis Morrison Leslie, [address] [place] [address] 09/30/2025 10:10 AM EDT Appointment [facility] G Radiology [address] [place] [address] 09/30/2025 11:30 AM EDT Office Visit [facility] [address]nd [place] [address] Aysha Crews MD [address] [place] [address] documented as of this encounter Procedures Procedure Name Priority Date/Time Associated Diagnosis Comments XR OUTSIDE IMAGES 02/08/2017 11:59 AM EDT documented in this encounter Results * XR OUTSIDE IMAGES (02/08/2017 11:59 AM EDT) Anatomical Region Laterality Modality Radiographic Kendra ging 02/08/2017 11:5 9 AM EDT us External Provider IMG XR PROCEDURES Final Result documented in this encounter Visit Diagnoses Not on filedocumented in this encounter Care Teams Operations Recruiter Relationship Specialty Start Date End Date Delmer Fritz MD [address] [facility] [address] [place], [place] [id number] PCP - General 10/02/20 12/13/20 Antwan Esparza MD [address] [place] [address] PCP - General 12/14/20 02/18/24 Inna Serrano APRN [facility] [place] [address] PCP - General 02/19/24 Ángela Millard APRN [address] [place] [address] Nurse Practitioner Neurosurgery 09/17/21 documented as of this encounter
--- OUTSIDE RECORDS SUMMARY | 2024-12-09 14:45 | XMS_ITS | Encounter Summary ---
Author Organization Healthcare Address [address] [place] [address] Care Team Providers Care Nipping Machine Operator Name Role Phone Antwan Esparza MD Primary Care Provider + [phone] Ángela Millard CURBSTONE SETTER Unavailable [phone] Inna Serrano APRN Primary Care Provider + [phone] Encounter Details Date Type Department Care Team (Late Contact Info) Description 01/25/2023 Orders Only External Location [address] [place] [address] Provider, External Social History Tobacco Use Types Packs/Day Years Used Date Smoking Tobacco: Every Day Cigarettes Smokeless Tobacco: Never Alcohol Use Standard Drinks/Week Comments No 0 (1 standard drink = 0.6 oz pure alcohol) Alcoholic Drinks/day: Never Drank Alcohol PHQ-2 Answer Date Recorded Patient Health Questionnaire-2 Score 0 12/21/2022 Sex and Gender Information Value Date Recorded [...] Orthopaedic Surgery & Sports Medicine [address], 1[address] [place] [address] Apollo Torres DPM [address] [place] [address] 02/12/2025 3:00 PM EDT Office Visit [facility] [address] [place] [address] Leslie Suarez DO [address] [place] [address] 09/30/2025 10:10 AM EDT Appointment [facility] Radiology [address] [place] [address] 09/30/2025 11:30 AM EDT Office Visit [facility] [address], 2nd [place] [address] Aysha Crews MD [address] [place] [address] documented as of this encounter Procedures Procedure Name Priority Date/Time Associated Diagnosis Comments CT THORACIC OUTSIDE IMAGES 01/25/2023 2:38 PM EDT documented in this encounter Results * CT THORACIC OUTSIDE IMAGES (01/25/2023 2:38 PM EDT) Anatomical Region Laterality Modality Computed Tomogra phy 01/25/2023 2:38 PM EDT us External Provider IMG CT PROCEDURES Final Result documented in this encounter Visit Diagnoses Not on filedocumented in this encounter Additional Health Concerns Assessment Noted Time A fall risk assessment has been complete d for the patient 12/21/2022 3:37 PM EDT A Body Mass Index follow-up plan has been documented for the patient 12/21/2022 4:58 PM EDT documented as of this encounter Care Teams Nipping Machine Operator Relationship Specialty Start Date End Date Antwan Esparza MD [address] [place] [address] PCP - General 12/14/20 02/18/24 Inna Serrano APRN [address] [place] [address] PCP - General 02/19/24 Ángela Millard, BELINDA [address] [address] Nurse Practitioner Neurosurgery 09/17/21 documented as of this encounter
--- OUTSIDE RECORDS SUMMARY | 2024-12-09 14:45 | XMS_ITS | Encounter Summary ---
Author Organization Healthcare Address [address] [place] [address] Care Team Providers Care It Consulting Manager Name Role Phone Antwan Esparza MD Primary Care Provider + [phone] Ángela Millard ELECTRICIAN FRONT Unavailable +[phone] Inna Serrano APRN Primary Care Provider [phone] Encounter Details Date Type Department Care Team (Late Contact Info) Description 07/19/2023 Orders Only External Location [address] [place] [address] Andrew Borja, DO [address] [place] [address] [place] [id number] Social History Tobacco Use Types Packs/Day Years Used Date Smoking Tobacco: Every Day Cigarettes Smokeless Tobacco: Never Alcohol Use Standard Drinks/Week Comments No 0 (1 standard drink = 0.6 oz pure alcohol) Alcoholic Drinks/day: Never Drank Alcohol PHQ-2 Answer Date Recorded Patient Health Questionnaire-2 Score 0 06/21/2023 PHQ-2A Answer Date Recorded Patient Health Questionnaire-2 [...] Description 12/24/2024 2:50 PM EDT [facility] [address], 1st [address] [place] [address] Apollo Torres, LOUIE [address] [place] [address] 02/12/2025 3:00 PM EDT Office Visit [facility] [address] [place] [address] Leslie Suarez DO [address] [place] [address] 09/30/2025 10:10 AM EDT Appointment [facility] Radiology [address] [place] [address] 09/30/2025 11:30 AM EDT Office Visit [facility] [address], 2nd [place] [address] Aysha Crews MD [address] [place] [address] documented as of this encounter Procedures Procedure Name Priority Date/Time Associated Diagnosis Comments XR OUTSIDE IMAGES 07/19/2023 10:27 AM EST documented in this encounter Results * XR OUTSIDE IMAGES (07/19/2023 10:27 AM EST) Anatomical Region Laterality Modality Radiographic Kendra ging 07/19/2023 10:2 7 AM EST Gene J Borja DO IMG XR PROCEDURES Final Result documented in this encounter Visit Diagnoses Not on filedocumented in this encounter Additional Health Concerns Assessment Noted Time A fall risk assessment has been complete d for the patient 06/21/2023 3:11 PM EST A Body Mass Index follow-up plan has been documented for the patient 06/23/2023 5:09 PM EST documented as of this encounter Care Teams It Consulting Manager Relationship Specialty Start Date End Date Antwan Esparza MD [address] [place] [address] PCP - General 12/14/20 02/18/24 Inna Serrano APRN [address] [place] [address] PCP - General 02/19/24 Ángela Millard APRN [address] [place] [address] Nurse Practitioner Neurosurgery 09/17/21 documented as of this encounter
--- OUTSIDE RECORDS SUMMARY | 2024-12-09 14:45 | XMS_ITS | Encounter Summary ---
Author Organization [facility] Address [address] [place] [address] Care Team Providers Care Residential Collections Name Role Phone Antwan Esparza MD Primary Care Provider + [phone] Ángela Millard CREATIVE ENGAGEMENT DIRECTOR Unavailable [phone] Inna Serrano CREATIVE ENGAGEMENT DIRECTOR Primary Care Provider [phone] Encounter Details Date Type Department Care Team (Late Contact Info) Description 09/15/2023 Orders Only External Location [address] [place] [address] Idalia Torres, CREATIVE ENGAGEMENT DIRECTOR [address] [place] [address] Social History Tobacco Use Types Packs/Day [...] Description 12/24/2024 2:50 PM EDT Office Visit [facility] [address], 1st [address] [place] [address] Apollo Torres, LOUIE [address] [place] [address] 02/12/2025 3:00 PM EDT Office Visit [facility] [address] [place] [address] Leslie Suarez, [address] [place] [address] 09/30/2025 10:10 AM EDT Appointment [facility] Radiology [address] [place] [address] 09/30/2025 11:30 AM EDT Office Visit [facility] [address], 2nd [place] [address] Aysha Crews MD [address] [place] [address] documented as of this encounter Procedures Procedure Name Priority Date/Time Associated Diagnosis Comments US THYROID 09/15/2023 12:36 PM EDT documented in this encounter Results * US Thyroid (09/15/2023 12:36 PM EDT) Anatomical Region Laterality Modality Thyroid, Neck Ultrasound 09/15/2023 12:3 6 PM EDT us Idalia Torres CREATIVE ENGAGEMENT DIRECTOR IMG US PROCEDURES Final Result documented in this encounter Visit Diagnoses Not on filedocumented in this encounter Additional Health Concerns Assessment Noted Time A fall risk assessment has been complete d for the patient 06/21/2023 3:11 PM EST A Body Mass Index follow-up plan has been documented for the patient 06/23/2023 5:09 PM EST documented as of this encounter Care Teams Residential Collections Relationship Specialty Start Date End Date Antwan Esparza MD [address] [place] [address] PCP - General 12/14/20 02/18/24 Inna Serrano APRN [address] [place] [address] PCP - General 02/19/24 Ángela Millard APRN [address] [place] [address] Nurse Practitioner Neurosurgery 09/17/21 documented as of this encounter
--- OUTSIDE RECORDS SUMMARY | 2024-12-09 14:45 | XMS_ITS | Encounter Summary ---
Author Organization Healthcare Address [address] [place] [address] Care Team Providers Care Personal Financial Representative Name Role Phone Delmer Fritz MD Primary Care Provider [phone] Antwan Esparza MD Primary Care Provider + [phone] Ángela Millard PIPE MANUFACTURE SUPERVISOR Unavailable [phone] Inna Serrano APRN Primary Care Provider + [phone] Encounter Details Date Type Department Care Team (Late st Contact Info) Description 02/28/2020 Orders Only External Location [address] [place] [address] Provider, External Social History Tobacco Use Types [...] Description 12/24/2024 2:50 PM EDT Office Visit [facility] [address] 1[address] [place] [address] Apollo Torres, LOUIE [address] [place] [address] 02/12/2025 3:00 PM EDT Office Visit Physical Medicine & Rehabilitation Clinic at [facility] [address] [place] [address] Cordelia Suareza, DO [address] [place] [address] 09/30/2025 10:10 AM EDT Appointment [facility] Radiology [address] [place] [address] 09/30/2025 11:30 AM EDT Office Visit [facility] [address], 2nd [place] [address] Aysha Crews MD [address] [place] [address] documented as of this encounter Procedures Procedure Name Priority Date/Time Associated Diagnosis Comments CT OUTSIDE IMAGES 02/28/2020 2:21 PM EDT documented in this encounter Results * CT OUTSIDE IMAGES (02/28/2020 2:21 PM EDT) Anatomical Region Laterality Modality Computed Tomogra phy 02/28/2020 2:21 PM EDT us External Provider IMG CT PROCEDURES Final Result documented in this encounter Visit Diagnoses Not on filedocumented in this encounter Care Teams Personal Financial Representative Relationship Specialty Start Date End Date Delmer Fritz MD [address] [facility] [address] [place] [address] PCP - General 10/02/20 12/13/20 Antwan Esparza MD [address] [place] [address] PCP - General 12/14/20 02/18/24 Inna Serrano APRN [address] [place] [address] PCP - General 02/19/24 Ángela Millard APRN [address] [place] [address] Nurse Practitioner Neurosurgery 09/17/21 documented as of this encounter
--- OUTSIDE RECORDS SUMMARY | 2024-12-09 14:45 | XMS_ITS | Encounter Summary ---
Author Organization Healthcare Address [address] [place] [address] Care Team Providers Care Metalworker Name Role Phone Delmer Fritz MD Primary Care Provider [phone] Antwan Esparza MD Primary Care Provider + [phone] Ángela Millard CARBON PRINTER Unavailable +[phone] Inna Serrano APRN Primary Care Provider + [phone] Encounter Details Date Type Department Care Team (Late st Contact Info) Description 05/13/2020 Orders Only External Location [address] [place] [address] Provider, External Social History Tobacco Use Types [...] Description 12/24/2024 2:50 PM EDT Office Visit [facility] [address], 1[address] [place] [address] Apollo Torres, LOUIE [address] [place] [address] 02/12/2025 3:00 PM EDT Office Visit Physical Medicine & Rehabilitation Clinic at [facility] [address] [place] [address] Adonis Jimenezles, Leslie, DO [address] [place] [address] 09/30/2025 10:10 AM EDT Appointment [facility] Radiology [address] [place] [address] 09/30/2025 11:30 AM EDT Office Visit [facility] [address] 2nd [place] [address] Aysha Crews MD [address] [place] [address] documented as of this encounter Procedures Procedure Name Priority Date/Time Associated Diagnosis Comments CT OUTSIDE IMAGES 05/13/2020 1:38 PM EST documented in this encounter Results * CT OUTSIDE IMAGES (05/13/2020 1:38 PM EST) Anatomical Region Laterality Modality Computed Tomogra phy 05/13/2020 1:38 PM EST us External Provider IMG CT PROCEDURES Final Result documented in this encounter Visit Diagnoses Not on filedocumented in this encounter Care Teams Metalworker Relationship Specialty Start Date End Date Delmer Fritz MD [address] [facility] [address] [place] [address] PCP - General 10/02/20 12/13/20 Antwan Esparza MD [address] [place], [place] [address] PCP - General 12/14/20 02/18/24 Inna Serrano APRN [address] [place] [address] PCP - General 02/19/24 Ángela Millard APRN [address] [place] [address] Nurse Practitioner Neurosurgery 09/17/21 documented as of this encounter
--- OUTSIDE RECORDS SUMMARY | 2024-12-09 14:45 | XMS_ITS | Encounter Summary ---
Author Organization Healthcare Address [address] [place] [id number] Care Team Providers Care Civil Engineer Helper Name Role Phone Ángela Millard BUSINESS TRAVEL CONSULTANT Unavailable [phone] Inna Serrano BUSINESS TRAVEL CONSULTANT Primary Care Provider [phone] Encounter Details Date Type Department Care Team (Late st Contact Info) Description 11/12/2024 Telephone [facility] [address], [address]nd [place] [address] Aysha Crews MD [address] [place] [address] Social History Tobacco Use Types [...] Telephone Encounter - Alison Jonas RN - 11/12/2024 3:03 PM EDT RN spoke w/ pt. Pt wanted to update Dr. Crews & team that pt has been diagnosed with kidney failure and also diagnosed with chronic heart failure. [facility]/options including if pt is a transplant candidate. Pt will call with any further issues or updates as needed. 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 Geovanny Tovar @ [facility]) sending pt to heart failure clinic, Best contact number and optimal time of day to reach caller: [phone], Note: Please do not reply to this message. Follow-up communication and further actions as a result of this message need to be communicated with the patient directly, if the patient is not active onMyChart. If the patient is active on MyChart, they will receive notification of the communication/outcome via Badge. documented in this encounter Plan of Treatment Upcoming Encounters Date Type Department Care Team (Late st Contact Info) Description 12/24/2024 2:50 PM EDT Office Visit [facility] Orthopaedic Surgery & Sports Medicine [address] 1[address] [place] [address] Apollo Torres, DPLeland [address] [place] [address] 02/12/2025 3:00 PM EDT Office Visit Physical Medicine & Rehabilitation Clinic at [facility] [address] [place] [address] Leslie Suarez DO [address] [facility] [address] [place] [address] 09/30/2025 10:10 AM EDT Appointment [facility] Radiology [address] [place] [address] 09/30/2025 11:30 AM EDT Office Visit [facility] [address]nd [place] [address] Aysha Crews MD [address] [facility] [address] [place] [address] documented as of this encounter Visit Diagnoses Not on filedocumented in this encounter Additional Health Concerns Assessment Noted Time A fall risk assessment has been complete d for the patient 11/11/2024 1:29 PM EDT A Body Mass Index follow-up plan has been documented for the patient 11/11/2024 5:31 PM EDT documented as of this encounter Care Teams Civil Engineer Helper Relationship Specialty Start Date End Date Inna Serrano APRN [address] [place] [address] PCP - General 02/19/24 Ángela Millard APRN [address] [place] [address] Nurse Practitioner Neurosurgery 09/17/21 documented as of this encounter
--- OUTSIDE RECORDS SUMMARY | 2024-12-09 14:45 | XMS_ITS | Encounter Summary ---
Author Organization Healthcare Address [address] [place] [address] Care Team Providers Care Furniture Lumber Production Worker Name Role Phone Delmer Fritz MD Primary Care Provider [phone] Antwan Esparza MD Primary Care Provider + [phone] Ángela Millard PLATING EQUIPMENT TENDER Unavailable [phone] Inna Serrano APRN Primary Care Provider + [phone] Encounter Details Date Type Department Care Team (Late st Contact Info) Description 10/30/2012 Orders Only External Location [address] [place] [address] Provider, External Social History Tobacco Use Types [...] Description 12/24/2024 2:50 PM EDT [facility] [address], 1st [address] [place] [address] Apollo Torres, LOUIE [address] [place] [address] 02/12/2025 3:00 PM EDT Office Visit Physical Medicine & Rehabilitation Clinic at [facility] [address] [place] [address] Adonis Morrison Leslie, DO [address] [place] [address] 09/30/2025 10:10 AM EDT Appointment [facility] Radiology [address] [place] [address] 09/30/2025 11:30 AM EDT Office Visit [facility] [address] 2nd [place] [address] Aysha Crews MD [address] [place] [address] documented as of this encounter Procedures Procedure Name Priority Date/Time Associated Diagnosis Comments US OUTSIDE IMAGES 10/30/2012 1:38 PM EDT documented in this encounter Results * US OUTSIDE IMAGES (10/30/2012 1:38 PM EDT) Anatomical Region Laterality Modality Ultrasound 10/30/2012 1:38 PM EDT us External Provider IMG US PROCEDURES Final Result documented in this encounter Visit Diagnoses Not on filedocumented in this encounter Care Teams Furniture Lumber Production Worker Relationship Specialty Start Date End Date Delmer Fritz MD [address] [facility] [address] [place] [address] PCP - General 10/02/20 12/13/20 Antwan Esparza MD [address] [place] [address] PCP - General 12/14/20 02/18/24 Inna Serrano APRN [address] [place] [address] PCP - General 02/19/24 Ángela Millard APRN [address] [place] [address] Nurse Practitioner Neurosurgery 09/17/21 documented as of this encounter
--- OUTSIDE RECORDS SUMMARY | 2024-12-09 14:45 | XMS_ITS | Encounter Summary ---
Author Organization Healthcare Address [address] [place] [address] Care Team Providers Care Customer Support Specialist Name Role Phone Antwan Esparza MD Primary Care Provider + [phone] Ángela Millard PROGRAM CLINICIAN Unavailable [phone] Inna Serrano PROGRAM CLINICIAN Primary Care Provider [phone] Reason for Visit * Reason Onset Date Comments HCN - Patient Message 10/08/2021 Encounter Details Date Type Department Care Team (Late st Contact Info) Description 09/27/2021 Refill [facility] [address] [place] [address] Leslie Suarez, DO [address] [facility] [address] [place] [address] Chronic low back pain, unspecified back pain laterality, unspecified whether sciatica present Social History Tobacco Use Types Packs/Day Years Used Date Smoking Tobacco: Every Day Cigarettes Smokeless Tobacco: Never Alcohol Use Standard Drinks/Week Comments No 0 (1 standard drink = 0.6 oz pure alcohol) Alcoholic Drinks/day: Never Drank Alcohol PHQ-2 Answer Date Recorded Patient Health Questionnaire-2 Score 0 09/02/2021 Sex and Gender Information Value Date Recorded Sex Assigned at Not on file Legal Sex Male 8:01 PM EDT Gender Identity Not on file Sexual Orientation Not on file COVID-19 Exposure Response Date Recorded In the last 10 days, have yo u been in contact with someone who was confirmed or suspected to have Coronavirus/COVID-19? No / Unsure 09/17/2021 1:24 PM EDT documented as of this encounter Miscellaneous Notes * Telephone Encounter - Heena Millard - 10/12/2021 11:06 AM EDT Patient Phone Message Reason for Call: Patient calling asking to speak to Dr. Morrison. Best contact number and optimal time of day to reach caller: [phone] Note: Please do not reply to this message. Follow-up communication and further actions as a result of this message need to be communicated with the patient directly, if the patient is not active onMyChart. If the patient is active on MyChart, they will receive notification of the communication/outcome via MyChart. * Telephone Encounter - Malena Edmond - 10/08/2021 3:18 PM EDT Patient Phone Message Reason for Call:Patient is requesting call back to discuss Neuro result please call patient to advise Best contact number and optimal time of day to reach caller: [phone] Note: Please do not reply to this message. Follow-up communication and further actions as a result of this message need to be communicated with the patient directly, if the patient is not active onMyChart. If the patient is active on MyChart, they will receive notification of the communication/outcome via MyChart. * Telephone Encounter - Omkar Thurman - 09/27/2021 8:01 AM EDT Medication Refill Request Medication Name & Dosage: Hydrocodone Preferred Pharmacy & Location: [facility] Days of medication remaining (if under 3 days please aishwarya as urgent): 4 Best contact number and optimal time of day to reach caller: [phone] Additional comments/information from caller: Pt asked if it would be possible to increase # of doses per day from 2 to 3. Note: Please do not reply to this [...] Description 12/24/2024 2:50 PM EDT Office Visit [facility] [address] [place] [address] Apollo Torres DPM [address] [place] [address] 02/12/2025 3:00 PM EDT Office Visit Physical Medicine & Rehabilitation Clinic at [facility] [address] [place] [address] Leslie Suarez DO [address] [place] [address] 09/30/2025 10:10 AM EDT Appointment [facility] Radiology [address] [place] [address] 09/30/2025 11:30 AM EDT Office Visit [facility] [address] 2[address] [place] [address] Aysha Crews MD [address] [facility] [address] [place] [address] documented as of this encounter Visit Diagnoses Diagnosis Chronic low back pain, unspecified back pain laterality, unspecified whether sciatica present documented in this encounter Additional Health Concerns Assessment Noted Time A fall risk assessment has been complete d for the patient 09/17/2021 1:57 PM EDT documented as of this encounter Care Teams Customer Support Specialist Relationship Specialty Start Date End Date Antwan Esparza MD [address] [place] [address] PCP - General 12/14/20 02/18/24 Inna Serrano APRN [address] [place] [address] PCP - General 02/19/24 Ángela Millard APRN [address] [place] [address] Nurse Practitioner Neurosurgery 09/17/21 documented as of this encounter
--- OUTSIDE RECORDS SUMMARY | 2024-12-09 14:45 | XMS_ITS | Encounter Summary ---
Author Organization Healthcare Address [address] [place] [address] Care Team Providers Care Flame Brazing Machine Operator Name Role Phone Delmer Fritz MD Primary Care Provider [phone] Antwan Esparza MD Primary Care Provider + [phone] Ángela Millard REGIONAL SALES MANAGER Unavailable [phone] Inna Serrano APRN Primary Care Provider + [phone] Encounter Details Date Type Department Care Team (Late st Contact Info) Description 03/19/2015 Orders Only External Location [address] [place] [address] Provider, External Social History Tobacco Use Types [...] Description 12/24/2024 2:50 PM EDT Office Visit [facility] [address], 1st [address] [place] [address] Apollo Torres, LOUIE [address] [place] [address] 02/12/2025 3:00 PM EDT Office Visit [facility] at [facility] [address] [place] [address] Adonis Morrison Leslie, [address] [place] [address] 09/30/2025 10:10 AM EDT Appointment [facility] [address] [place] [address] 09/30/2025 11:30 AM EDT Office Visit [facility] [address], [address]nd [place] [address] Aysha Crews MD [address] [place] [address] documented as of this encounter Procedures Procedure Name Priority Date/Time Associated Diagnosis Comments XR OUTSIDE IMAGES 03/19/2015 3:55 PM EDT documented in this encounter Results * XR OUTSIDE IMAGES (03/19/2015 3:55 PM EDT) Anatomical Region Laterality Modality Radiographic Kendra ging 03/19/2015 3:55 PM EDT us External Provider IMG XR PROCEDURES Final Result documented in this encounter Visit Diagnoses Not on filedocumented in this encounter Care Teams Flame Brazing Machine Operator Relationship Specialty Start Date End Date Delmer Fritz MD 430 [facility] [address]1 [address]1 [place], [place] [id number] PCP - General 10/02/20 12/13/20 Antwan Esparza MD [address] [place], [place] [address] PCP - General 12/14/20 02/18/24 Inna Serrano APRN [facility] [place] [address] PCP - General 02/19/24 Ángela Millard APRN [address] [place] [address] Nurse Practitioner Neurosurgery 09/17/21 documented as of this encounter
--- OUTSIDE RECORDS SUMMARY | 2024-12-09 14:45 | XMS_ITS | Encounter Summary ---
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
--- OUTSIDE RECORDS SUMMARY | 2024-12-09 14:45 | XMS_ITS | Encounter Summary ---
Author Organization Healthcare Address [address] [place] [address] Care Team Providers Care Configuration Analyst Name Role Phone Ángela Millard COMFORT STATION ATTENDANT Unavailable [phone] Inna Serrano COMFORT STATION ATTENDANT Primary Care Provider [phone] Encounter Details Date Type Department Care Team (Late Contact Info) Description 09/02/2024 Orders Only External Location [address] [place] [address] Provider, External Social History Tobacco Use Types [...] Orthopaedic Surgery & Sports Medicine [address], 1st Floor [address] [place] [address] Apollo Torres, LOUIE [address] [place] [address] 02/12/2025 3:00 PM EDT Office Visit [facility] [address] [place] [address] Adonis PrinceLeslie gibson, [address] [place] [address] 09/30/2025 10:10 AM EDT Appointment [facility] Radiology [address] [place] [address] 09/30/2025 11:30 AM EDT Office Visit [facility] [address], 2nd [place] [address] Aysha Crews MD [address] [place] [address] documented as of this encounter Procedures Procedure Name Priority Date/Time Associated Diagnosis Comments XR MSK OUTSIDE IMAGES 09/02/2024 2:11 PM EDT documented in this encounter Results * XR MSK OUTSIDE IMAGES (09/02/2024 2:11 PM EDT) Anatomical Region Laterality Modality Radiographic Kendra ging 09/02/2024 2:11 PM EDT us External Provider IMG XR PROCEDURES Final Result documented in this encounter Visit Diagnoses Not on filedocumented in this encounter Additional Health Concerns Assessment Noted Time A fall risk assessment has been complete d for the patient 08/12/2024 1:42 PM EDT A Body Mass Index follow-up plan has been documented for the patient 08/13/2024 2:56 PM EDT documented as of this encounter Care Teams Configuration Analyst Relationship Specialty Start Date End Date Inna Serrano APRN [address] [place] [address] PCP - General 02/19/24 Ángela Millard APRN [address] [place] [address] Nurse Practitioner Neurosurgery 09/17/21 documented as of this encounter
--- OUTSIDE RECORDS SUMMARY | 2024-12-09 14:45 | XMS_ITS | Encounter Summary ---
Author Organization Healthcare Address [address] [place] [address] Care Team Providers Care Planning Rn Name Role Phone Antwan Esparza MD Primary Care Provider + [phone] Ángela Millard APRN Unavailable [phone] Inna Serrano APRN Primary Care Provider + [phone] Encounter Details Date Type Department Care Team ([facility] Contact Info) Description 08/10/2021 Orders Only External Location [address] [place] [address] Provider, External Social History Tobacco Use Types [...] Upcoming Encounters Date Type Department Care Team ([facility] Contact Info) Description 12/24/2024 2:50 PM EDT Office Visit [facility] [address], 1[address] [place] [address] Apollo Torres, LOUIE [address] [place] [address] 02/12/2025 3:00 PM EDT Office Visit [facility] [address] [place] [address] Adonis Prince Leslie, [address] [place] [address] 09/30/2025 10:10 AM EDT Appointment [facility] Rad[facility] [address] [place] [address] 09/30/2025 11:30 AM EDT Office Visit [facility] [address], 2nd [place] [address] Aysha Crews MD [address] [place] [address] documented as of this encounter Procedures Procedure Name Priority Date/Time Associated Diagnosis Comments MR OUTSIDE IMAGES 08/10/2021 3:51 PM EDT documented in this encounter Results * MR transfer of outside films (08/10/2021 3:51 PM EDT) Anatomical Region Laterality Modality Magnetic Resonan ce 08/10/2021 3:51 PM EDT us External Provider IMG MRI PROCEDURES Final Resul t documented in this encounter Visit Diagnoses Not on filedocumented in this encounter Additional Health Concerns Assessment Noted Time A fall risk assessment has been complete d for the patient 12/14/2020 9:53 AM EDT documented as of this encounter Care Teams Planning Rn Relationship Specialty Start Date End Date Antwan Esparza MD [address] [place] [address] PCP - General 12/14/20 02/18/24 Inna Serrano APRN [address] [place] [address] PCP - General 02/19/24 Ángela Millard APRN [address] [address] Nurse Practitioner Neurosurgery 09/17/21 documented as of this encounter
--- OUTSIDE RECORDS SUMMARY | 2024-12-09 14:45 | XMS_ITS | Encounter Summary ---
Author Organization Healthcare Address [address] [id number] Care Team Providers Care Remote Encoding Operations Supervisor Name Role Phone Antwan Esparza MD Primary Care Provider + [phone] Ángela Millard LADLE WATCHER Unavailable [phone] Inna Serrano LADLE WATCHER Primary Care Provider + [phone] Reason for Visit * Reason Onset Date Comments HCN - Rx Refill Request 05/30/2022 Encounter Details Date Type Department Care Team (Late st Contact Info) Description 05/30/2022 Refill PFE SCHEDULING [address] [place] [address] Leslie Suarez DO [address] [facility] [address] [place] [address] Chronic low back pain, unspecified back pain laterality, unspecified whether sciatica present; Chronic midline low back pain without sciatica; Chronic bilateral low back pain without sciatica Social History Tobacco Use Types Packs/Day Years [...] encounter Miscellaneous Notes * Telephone Encounter - Carissa Fried - 05/30/2022 1:07 PM EST Medication Refill Request SANDIE Medication Name & Dosage: Hydrocodone 5/325 mg take every 6 hrs as needed for pain Preferred Pharmacy & Location: [facility] [phone] Days of medication remaining (if under 3 days please aishwarya as urgent): 0 Best contact number and optimal time of day to reach caller: [phone] Additional comments/information from caller: Note: Please do not reply to this message. Follow-up communication and further actions as a result of this message need to be communicated with the patient directly, if the patient is not active onMyChart. If the patient is active on MyChart, they will receive notification of the communication/outcome via [employer]. documented in this encounter Plan of Treatment Upcoming Encounters Date Type Department Care Team (Late st Contact Info) Description 12/24/2024 2:50 PM EDT Office Visit [facility] [address], 1st Floor [address] [place] [address] Apollo Torres, LOUIE [address] [place] [address] 02/12/2025 3:00 PM EDT Office Visit Physical Medicine & Rehabilitation Clinic at [facility] [address] [place] [address] Lelsie Suarez, [address] [place] [address] 09/30/2025 10:10 AM EDT Appointment [facility] Radiology [address] [place] [address] 09/30/2025 11:30 AM EDT Office Visit [facility] [address] 2nd [place] [address] Aysha Crews MD [address] [place] [address] documented as of this encounter Visit Diagnoses Diagnosis Chronic low back pain, unspecified back pain laterality, unspecified whether sciatica present documented in this encounter Additional Health Concerns Assessment Noted Time A fall risk assessment has been complete d for the patient 04/25/2022 1:12 PM EST documented as of this encounter Care Teams Remote Encoding Operations Supervisor Relationship Specialty Start Date End Date Antwan Esparza MD 9 [place] [address] PCP - General 12/14/20 02/18/24 Inna Serrano APRN [facility] [place] [address] PCP - General 02/19/24 Ángela Millard APRN [address] [facility] [address] [place] [address] Nurse Practitioner Neurosurgery 09/17/21 documented as of this encounter
--- OUTSIDE RECORDS SUMMARY | 2024-12-09 14:45 | XMS_ITS | Encounter Summary ---
Author Organization Healthcare Address [address] [place] [address] Care Team Providers Care Highway Engineering Teacher Name Role Phone Ángela Millard FLAT DRIER Unavailable [phone] Inna Serrano APRN Primary Care Provider [phone] Reason for Visit * Reason Onset Date Comments HCN - Patient Message 12/02/2024 Encounter Details Date Type Department Care Team (Late st Contact Info) Description 12/02/2024 Telephone Physical Medicine & Rehabilitation Clinic at [facility] [address] [facility] [place] [address] Leslie Suarez DO [address] [facility] [address] [place] [address] HCN - Patient Message Social [...] Telephone Encounter - Leslie Suarez DO - 12/02/2024 4:00 PM EDT Noted thanks * Telephone Encounter - Poly Squires - 12/02/2024 2:28 PM EDT Thank you * Telephone Encounter - Germaine Hart - 12/02/2024 10:59 AM EDT Clinical Concern/Question Reason for Call: Prince patient calling, he is needing to get some information to Prince RODRIGUEZ. Patient is going to be seeing a hardware installer due to his PCP finding lesions on his neck, face, stomach,and arms. He is also needing to let her know he is having a thermal-image scan on his heart as advised by his supervisor vat house and heart transplant doctors to determine if he is a candidate for a heart transplant. Best contact number: [phone] (mobile) Optimal time of day to reach [...] 12/24/2024 2:50 PM EDT Office Visit [facility] Orthopaedic Surgery & Sports Medicine [address], 1st Floor [address] [place] [address] Apollo Torres DPM [address] [place] [address] 02/12/2025 3:00 PM EDT Office Visit [facility] [address] [place] [place] [address] Leslie Suarez, [address] [place] [address] 09/30/2025 10:10 AM EDT Appointment [facility] Radiology [address] [place] [address] 09/30/2025 11:30 AM EDT Office Visit [facility] [address], 2nd [place] [address] Aysha Crews MD [address] [place] [address] documented as of this encounter Visit Diagnoses Not on filedocumented in this encounter Additional Health Concerns Assessment Noted Time A fall risk assessment has been complete d for the patient 11/11/2024 1:29 PM EDT A Body Mass Index follow-up plan has been documented for the patient 11/11/2024 5:31 PM EDT documented as of this encounter Care Teams Highway Engineering Teacher Relationship Specialty Start Date End Date Inna Serrano APRN [address] [place] [address] PCP - General 02/19/24 Ángela Millard APRN [address] [place] [address] Nurse Practitioner Neurosurgery 09/17/21 documented as of this encounter
--- OUTSIDE RECORDS SUMMARY | 2024-12-09 14:45 | XMS_ITS | Encounter Summary ---
Author Organization Healthcare Address [address] [place] [address] Care Team Providers Care Clam Bed Worker Name Role Phone Delmer Fritz MD Primary Care Provider [phone] Antwan Esparza MD Primary Care Provider + [phone] Ángela Millard BATCH MIXER Unavailable [phone] Inna Serrano APRN Primary Care Provider + [phone] Encounter Details Date Type Department Care Team (Late st Contact Info) Description 05/13/2020 Orders Only External Location [address] [place] [address] Provider, External Social History Tobacco Use Types [...] Description 12/24/2024 2:50 PM EDT Office Visit [facility] [address], 1[address] Floor [address] [place] [address] Apollo Torres, LOUIE [address] [place] [address] 02/12/2025 3:00 PM EDT Office Visit [facility] Medicine [facility] Rehabilitation [facility] at [facility] [address] [place] [address] Adonis Jimenezles, Leslie, DO [address] [place] [address] 09/30/2025 10:10 AM EDT Appointment [facility] Radiology [address] [place] [address] 09/30/2025 11:30 AM EDT Office Visit [facility] [address], 2nd [place] [address] Aysha Crews MD [address] [place] [address] documented as of this encounter Procedures Procedure Name Priority Date/Time Associated Diagnosis Comments CT OUTSIDE IMAGES 05/13/2020 1:35 PM EST documented in this encounter Results * CT OUTSIDE IMAGES (05/13/2020 1:35 PM EST) Anatomical Region Laterality Modality Computed Tomogra phy 05/13/2020 1:35 PM EST us External Provider IMG CT PROCEDURES Final Result documented in this encounter Visit Diagnoses Not on filedocumented in this encounter Care Teams Clam Bed Worker Relationship Specialty Start Date End Date Delmer Fritz MD 430 [facility] [address] [place] [address] PCP - General 10/02/20 12/13/20 Antwan sEparza MD [address] [place] [address] PCP - General 12/14/20 02/18/24 Inna Serrano APRN [address] [place] [address] PCP - General 02/19/24 Ángela Millard APRN [address] [place] [address] Nurse Practitioner Neurosurgery 09/17/21 documented as of this encounter
--- OUTSIDE RECORDS SUMMARY | 2024-12-09 14:45 | XMS_ITS | Encounter Summary ---
Author Organization Healthcare Address [address] [place] [address] Care Team Providers Care Food And Nutrition Services Supervisor Name Role Phone Antwan Esparza MD Primary Care Provider + [phone] Ángela Millard DYE BOX OPERATOR Unavailable [phone] Inna Serrano APRN Primary Care Provider [phone] Encounter Details Date Type Department Care Team (Late Contact Info) Description 06/23/2023 Orders Only External Location [address] [place] [address] Andrew Borja, DO [address] [place] [address] [place] [id number] Social History Tobacco Use Types Packs/Day Years [...] Description 12/24/2024 2:50 PM EDT Office Visit [facility] Orthopaedic Surgery & Sports Medicine [address], 1st [address] [place] [address] Apollo Torres, LOUIE [address] [place] [address] 02/12/2025 3:00 PM EDT Office Visit [facility] [address] [place] [address] Leslie Suarez DO [address] [place] [address] 09/30/2025 10:10 AM EDT Appointment [facility] Radiology [address] [place] [address] 09/30/2025 11:30 AM EDT Office Visit [facility] [address], 2nd [place] [address] Aysha Crews MD [address] [place] [address] documented as of this encounter Procedures Procedure Name Priority Date/Time Associated Diagnosis Comments MR OUTSIDE IMAGES 06/23/2023 3:04 PM EST documented in this encounter Results * MR transfer of outside films (06/23/2023 3:04 PM EST) Anatomical Region Laterality Modality Magnetic Resonan ce 06/23/2023 3:04 PM EST Gene J Borja DO IMG MRI PROCEDURES Final Result documented in this encounter Visit Diagnoses Not on filedocumented in this encounter Additional Health Concerns Assessment Noted Time A fall risk assessment has been complete d for the patient 06/21/2023 3:11 PM EST A Body Mass Index follow-up plan has been documented for the patient 06/23/2023 5:09 PM EST documented as of this encounter Care Teams Food And Nutrition Services Supervisor Relationship Specialty Start Date End Date Antwan Esparza MD [address] [place] [address] PCP - General 12/14/20 02/18/24 Inna Serrano APRN [address] [place] [address] PCP - General 02/19/24 Ángela Millard APRN [address] [place] [address] Nurse Practitioner Neurosurgery 09/17/21 documented as of this encounter
--- OUTSIDE RECORDS SUMMARY | 2024-12-09 14:45 | XMS_ITS | Encounter Summary ---
Author Organization Healthcare Address [address] [place] [address] Care Team Providers Care Shaker Repairer Name Role Phone Delmer Fritz MD Primary Care Provider [phone] Antwan Esparza MD Primary Care Provider + [phone] Ángela Millard MANAGER MARKETING Unavailable [phone] Inna Serrano APRN Primary Care Provider + [phone] Encounter Details Date Type Department Care Team (Late st Contact Info) Description 07/30/2018 Orders Only External Location [address] [place] [address] Provider, External Social History Tobacco Use Types [...] Description 12/24/2024 2:50 PM EDT Office Visit [facility] [address], 1[address] [place] [address] Apollo Torres, LOUIE [address] [place] [address] 02/12/2025 3:00 PM EDT Office Visit Physical Medicine & Rehabilitation Clinic at [facility] [address] [address] Adonis Morrison Leslie, [address] [place] [address] 09/30/2025 10:10 AM EDT Appointment [facility] Radiology [address] [place] [address] 09/30/2025 11:30 AM EDT Office Visit [facility] [address], 2nd [place] [address] Aysha Crews MD [address] [place] [address] documented as of this encounter Procedures Procedure Name Priority Date/Time Associated Diagnosis Comments XR OUTSIDE IMAGES 07/30/2018 2:13 PM EDT documented in this encounter Results * XR OUTSIDE IMAGES (07/30/2018 2:13 PM EDT) Anatomical Region Laterality Modality Radiographic Kendra ging 07/30/2018 2:13 PM EDT us External Provider IMG XR PROCEDURES Final Result documented in this encounter Visit Diagnoses Not on filedocumented in this encounter Care Teams Shaker Repairer Relationship Specialty Start Date End Date Delmer Fritz MD 430 [facility] [address] [place], [place] [id number] PCP - General 10/02/20 12/13/20 Antwan Esparza MD [address] [place], [place] [address] PCP - General 12/14/20 02/18/24 Inna Serrano APRN [facility] [place] [address] PCP - General 02/19/24 Ángela Millard APRN [address] [place] [address] Nurse Practitioner Neurosurgery 09/17/21 documented as of this encounter
--- OUTSIDE RECORDS SUMMARY | 2024-12-09 14:45 | XMS_ITS | Encounter Summary ---
Author Organization Healthcare Address [address] [address] Care Team Providers Care Financial Processing Clerk Name Role Phone Delmer Fritz MD Primary Care Provider [phone] Antwan Esparza MD Primary Care Provider + [phone] Ángela Millard TERMINAL CARMAN Unavailable [phone] Inna Serrano APRN Primary Care Provider + [phone] Encounter Details Date Type Department Care Team (Late st Contact Info) Description 08/14/2019 Orders Only External Location [address] [place] [address] Provider, External Social History Tobacco Use Types [...] Description 12/24/2024 2:50 PM EDT Office Visit [facility] [address] [address] Apollo Torres, LOUIE [address] [address] 02/12/2025 3:00 PM EDT Office Visit Physical Medicine & Rehabilitation Clinic at [facility] [address] [address] Cordelia Suareza, [address] [address] 09/30/2025 10:10 AM EDT Appointment [facility] Radiology [address] [address] 09/30/2025 11:30 AM EDT Office Visit [facility] [address], 2[address] Floor [address] Aysha Crews MD [address] [address] documented as of this encounter Procedures Procedure Name Priority Date/Time Associated Diagnosis Comments CT OUTSIDE IMAGES 08/14/2019 9:18 AM EDT documented in this encounter Results * CT OUTSIDE IMAGES (08/14/2019 9:18 AM EDT) Anatomical Region Laterality Modality Computed Tomogra phy 08/14/2019 9:18 AM EDT us External Provider IMG CT PROCEDURES Final Result documented in this encounter Visit Diagnoses Not on filedocumented in this encounter Care Teams Financial Processing Clerk Relationship Specialty Start Date End Date Delmer Fritz MD [address] [facility] [address] [place] [address] PCP - General 10/02/20 12/13/20 Antwan Esparza MD [address] [place] [address] PCP - General 12/14/20 02/18/24 Inna Serrano APRN [address] [place] [address] PCP - General 02/19/24 Ángela Millard APRN [address] [address] Nurse Practitioner Neurosurgery 09/17/21 documented as of this encounter
--- OUTSIDE RECORDS SUMMARY | 2024-12-09 14:45 | XMS_ITS | Encounter Summary ---
Author Organization Healthcare Address [address] [place] [address] Care Team Providers Care Time Piece Repairer Name Role Phone Ángela Millard CLOTHING ROOM SUPERVISOR Unavailable [phone] Inna Serrano CLOTHING ROOM SUPERVISOR Primary Care Provider [phone] Reason for Visit * Reason Onset Date Comments HCN - Patient Message 09/18/2024 Encounter Details Date Type Department Care Team (Late st Contact Info) Description 09/18/2024 Telephone [facility] Orthopaedic Surgery & Sports Medicine [address], [address] [place] [address] Sancho Gutierrez, DPLeland [address] [place] [address] HCN - Patient Message Social [...] * Telephone Encounter - Jessie Brownlee - 09/20/2024 11:02 AM EDT MRI and bone scan requested from [facility] per patient's request prior to appt * Telephone Encounter - Jessie Brownlee - 09/19/2024 10:40 AM EDT LVM * Telephone Encounter - Malena Edmond - 09/18/2024 1:08 PM EDT Clinical Concern/Question Reason for Call: Pt is requesting call back regarding xrays from [facility] he stated we need to request them please call to advise Best contact number: [phone] (mobile) Optimal time of day to reach caller: ANYTIME Additional comments/information from caller: None Note: Please do not reply to this message. Follow-up communication and further actions as a result of this message need to be communicated with the patient directly, if the patient is not active onMyChart. If the patient is active on MyChart, they will receive notification of the communication/outcome via [employer]. documented in this encounter Plan of Treatment Upcoming Encounters Date Type Department Care Team (Late st Contact Info) Description 12/24/2024 2:50 PM EDT Office Visit [facility] Orthopaedic Surgery & Sports Medicine [address] [place] [address] Apollo Torres, DPLeland [address] [place] [address] 02/12/2025 3:00 PM EDT Office Visit [facility] at [facility] [address] [place] [address] Leslie Suarez DO [address] [facility] [address] [place] [address] 09/30/2025 10:10 AM EDT Appointment [facility] [address] [place] [address] 09/30/2025 11:30 AM EDT Office Visit [facility] [address] [place] [address] Aysha Crews MD [address] [place] [address] documented as of this encounter Visit Diagnoses Not on filedocumented in this encounter Additional Health Concerns Assessment Noted Time A fall risk assessment has been complete d for the patient 08/12/2024 1:42 PM EDT A Body Mass Index follow-up plan has been documented for the patient 08/13/2024 2:56 PM EDT documented as of this encounter Care Teams Time Piece Repairer Relationship Specialty Start Date End Date Inna Serrano, CLOTHING ROOM SUPERVISOR [address] [place] [address] PCP - General 02/19/24 Ángela Millard, CLOTHING ROOM SUPERVISOR [address] [place] [address] Nurse Practitioner Neurosurgery 09/17/21 documented as of this encounter
--- OUTSIDE RECORDS SUMMARY | 2024-12-09 14:45 | XMS_ITS | Encounter Summary ---
Author Organization Healthcare Address [address] [place] [address] Care Team Providers Care Milk Vendor Name Role Phone Antwan Esparza MD Primary Care Provider [phone] Ángela Millard TOOLROOM ATTENDANT Unavailable [phone] Inna Serrano TOOLROOM ATTENDANT Primary Care Provider + [phone] Reason for Visit * Reason Onset Date Comments HCN - Rx Refill Request 04/11/2022 Encounter Details Date Type Department Care Team (Late st Contact Info) Description 04/11/2022 Refill [facility] [address] [place] [address] Leslie Suaerz DO [address] [facility] [address] [place] [address] Chronic low back pain, unspecified back pain laterality, unspecified whether sciatica present (Primary Dx); Chronic midline low back pain without sciatica; [...] encounter Miscellaneous Notes * Telephone Encounter - Yocasta Harthel N - 04/11/2022 10:37 AM EST Medication Refill Request Medication Name & Dosage: Hydrocodone-acetaminophen 5-325MG Preferred Pharmacy & Location: [facility] [place], [place] Days of medication remaining (if under 3 days please aishwarya as urgent): 7 days Best contact number and optimal time of day to reach caller: [phone] Additional comments/information from caller: Note: Please do not reply to this message. Follow-up communication and further actions as a result of this message need to be communicated with the patient directly, if the patient is not active onMyChart. If the patient is active on MyChart, they will receive notification of the communication/outcome via [employer]. documented in this encounter Plan of Treatment Upcoming Encounters Date Type Department Care Team (Late st Contact Info) Description 12/24/2024 2:50 PM EDT [facility] Visit [facility] [address] 1[address] [place] [address] Apollo Torres, DPLeland [address] [place] [address] 02/12/2025 3:00 PM EDT Office Visit [facility] [address] [place] [address] Leslie Suarez DO [address] [place] [address] 09/30/2025 10:10 AM EDT Appointment [facility] [address] [place] [address] 09/30/2025 11:30 AM EDT Office Visit [facility] [address] [place] [address] Aysha Crews MD [address] [place] [address] documented as of this encounter Visit Diagnoses Diagnosis Chronic low back pain, unspecified back pain laterality, unspecified whether sciatica present- Primary documented in this encounter Additional Health Concerns Assessment Noted Time A fall risk assessment has been complete d for the patient 01/31/2022 1:51 PM EDT documented as of this encounter Care Teams Milk Vendor Relationship Specialty Start Date End Date Antwan Esparza MD [address] [place] [address] PCP - General 12/14/20 02/18/24 Inna Serrano APRN [facility] [place] [address] PCP - General 02/19/24 Ángela Millard APRN [address] [place] [address] Nurse Practitioner Neurosurgery 09/17/21 documented as of this encounter
--- OUTSIDE RECORDS SUMMARY | 2024-12-09 14:45 | XMS_ITS | Encounter Summary ---
Author Organization Healthcare Address [address] [place] [address] Care Team Providers Care Data Analytics Architect Name Role Phone Ángela Millard DETECTIVE INVESTIGATOR Unavailable [phone] Inna Serrano DETECTIVE INVESTIGATOR Primary Care Provider [phone] Encounter Details Date Type Department Care Team (Late Contact Info) Description 08/08/2024 Orders Only External Location [address] [place] [address] Provider, External Social History Tobacco Use Types [...] Description 12/24/2024 2:50 PM EDT Office Visit [facility] [address], [address] [place] [address] Apollo Torres, LOUIE [address] [place] [address] 02/12/2025 3:00 PM EDT Office Visit [facility] [address] [place] [address] Adonis PrinceLeslie gibson, [address] [place] [address] 09/30/2025 10:10 AM EDT Appointment [facility] [address] [place] [address] 09/30/2025 11:30 AM EDT Office Visit [facility] [address], 2nd [place] [address] Aysha Crews MD [address] [place] [place] [address] documented as of this encounter Procedures Procedure Name Priority Date/Time Associated Diagnosis Comments CT MSK OUTSIDE IMAGES 08/08/2024 3:22 PM EDT documented in this encounter Results * CT MSK OUTSIDE IMAGES (08/08/2024 3:22 PM EDT) Anatomical Region Laterality Modality Computed Tomogra phy 08/08/2024 3:22 PM EDT us External Provider IMG CT PROCEDURES Final Result documented in this encounter Visit Diagnoses Not on filedocumented in this encounter Additional Health Concerns Assessment Noted Time A fall risk assessment has been complete d for the patient 05/20/2024 2:14 PM EST A Body Mass Index follow-up plan has been documented for the patient 05/20/2024 4:46 PM EST documented as of this encounter Care Teams Data Analytics Architect Relationship Specialty Start Date End Date Inna Serrano APRN [address] [place] [address] PCP - General 02/19/24 Ángela Millard APRN [address] [place] [address] Nurse Practitioner Neurosurgery 09/17/21 documented as of this encounter
--- OUTSIDE RECORDS SUMMARY | 2024-12-09 14:45 | XMS_ITS | Encounter Summary ---
Author Organization Healthcare Address [address] [place] [address] Care Team Providers Care Order Tracer Name Role Phone Ángela Millard INSPECTOR BRAKE LINING Unavailable [phone] Inna Serrano APRN Primary Care Provider [phone] Reason for Visit * Reason Onset Date Comments HCN - Patient Message 09/19/2024 Encounter Details Date Type Department Care Team (Late st Contact Info) Description 09/19/2024 Telephone Physical Medicine & Rehabilitation Clinic at [facility] [address] [facility] [place] [address] Leslie Suarez DO [address] [facility] [address] [place] [address] HCN - Patient Message Social [...] Telephone Encounter - Leslie Suarez DO - 09/19/2024 4:42 PM EDT Noted thank you for the update. * Telephone Encounter - Poly Squires - 09/19/2024 3:49 PM EDT I called pt back, he stated that his cancer doctor is sending him on the 6 to see a thoracic surgeon and chemo doctor. * Telephone Encounter - Nikki Garg - 09/19/2024 11:03 AM EDT Clinical Concern/Question Reason for Call: Prince Patient is calling asking to speak with a nurse to give an update after talking with cancer provider. Please call to discuss. Best contact number: [phone] (mobile) Optimal time of day to reach caller: ANYTIME Additional comments/information from caller: I sent a SM, but no one [...] Description 12/24/2024 2:50 PM EDT Office Visit [facility] Orthopaedic Surgery & Sports Medicine [address] 1[address] [place] [address] Apollo Torres, LOUIE [address] [place] [address] 02/12/2025 3:00 PM EDT Office Visit [facility] at [facility] [address] [place] [address] Adonis Prince Leslie, DO [address] [facility] [address] [place] [address] 09/30/2025 10:10 AM EDT Appointment [facility] [address] [place] [address] 09/30/2025 11:30 AM EDT Office Visit [facility] [address], [address]nd [place] [address] Aysha Crews MD [address] [place] [address] documented as of this encounter Visit Diagnoses Not on filedocumented in this encounter Additional Health Concerns Assessment Noted Time A fall risk assessment has been complete d for the patient 08/12/2024 1:42 PM EDT A Body Mass Index follow-up plan has been documented for the patient 08/13/2024 2:56 PM EDT documented as of this encounter Care Teams Order Tracer Relationship Specialty Start Date End Date Inna Serrano APRN [address] [place] [address] PCP - General 02/19/24 Ángela Millard APRN [address] [place] [address] Nurse Practitioner Neurosurgery 09/17/21 documented as of this encounter
--- OUTSIDE RECORDS SUMMARY | 2024-12-09 14:45 | XMS_ITS | Encounter Summary ---
Author Organization [facility] Address [address] [place] [address] Care Team Providers Care Icebox Worker Name Role Phone Antwan Esparza MD Primary Care Provider [phone] Ángela Millard RADIO PROGRAM CHECKER Unavailable [phone] Inna Serrano RADIO PROGRAM CHECKER Primary Care Provider [phone] Reason for Visit * Reason Onset Date Comments HCN - Rx Refill Request 12/27/2021 Encounter Details Date Type Department Care Team (Late st Contact Info) Description 12/27/2021 Telephone Physical Medicine & Rehabilitation Clinic at [facility] [address] [place] [address] Leslie Suarez DO [address] [facility] [address] [place] [address] HCN - Rx Refill Request [...] encounter Miscellaneous Notes * Telephone Encounter - Omkar Thurman - 12/27/2021 8:31 AM EDT Medication Refill Request Medication Name & Dosage: Hydrocodone and diclofenac Preferred Pharmacy & Location: [facility] Days of medication remaining (if under 3 days please aishwarya as urgent): 5 Best contact number and optimal time of day to reach caller: [phone] Additional comments/information from caller: Note: Please do not reply to this message. Follow-up communication and further actions as a result of this message need to be communicated with the patient directly, if the patient is not active onMyChart. If the patient is active on MyChart, they will receive notification of the communication/outcome via [employer]. documented in this encounter Plan of Treatment Upcoming Encounters Date Type Department Care Team (Late st Contact Info) Description 12/24/2024 2:50 PM EDT Office Visit [facility] [address] 1[address] [place] [address] Apollo Torres, LOUIE [address] [place] [address] 02/12/2025 3:00 PM EDT Office Visit [facility] [address] [place] [address] Leslie Suarez DO [address] [place] [address] 09/30/2025 10:10 AM EDT Appointment [facility] [address] [place] [address] 09/30/2025 11:30 AM EDT Office Visit [facility] [address] 2[address] [place] [address] Aysha Crews MD [address] [place] [address] documented as of this encounter Visit Diagnoses Diagnosis Chronic low back pain, unspecified back pain laterality, unspecified whether sciatica present documented in this encounter Additional Health Concerns Assessment Noted Time A fall risk assessment has been complete d for the patient 11/01/2021 9:34 AM EDT documented as of this encounter Care Teams Icebox Worker Relationship Specialty Start Date End Date Antwan Esparza MD [address] [place] [address] PCP - General 12/14/20 02/18/24 Inna Serrano APRN [address] [place] [address] PCP - General 02/19/24 Ángela Millard APRN [address] [place] [address] Nurse Practitioner Neurosurgery 09/17/21 documented as of this encounter
--- OUTSIDE RECORDS SUMMARY | 2024-12-09 14:46 | XMS_ITS | Encounter Summary ---
Author Organization [facility] Address [address] [place] [address] Care Team Providers Care Revenue Cycle Specialist Name Role Phone Ángela Millard PUNCH BOX TENDER Unavailable [phone] Inna Serrano APRN Primary Care Provider [phone] Encounter Details Date Type Department Care Team (Latest Contact Info) Description 11/11/2024 Travel Social History Tobacco Use Types Packs/Day [...] Poly Squires documented as of this encounter Plan of Treatment Upcoming Encounters Date Type Department Care Team (Late st Contact Info) Description 12/24/2024 2:50 PM EDT Office Visit [facility] [address] [place] [address] Apollo Torres, LOUIE [address] [place] [address] 02/12/2025 3:00 PM EDT Office Visit [facility] [address] [place] [address] Leslie Suarez DO [address] [place] [address] 09/30/2025 10:10 AM EDT Appointment [facility] [address] [place] [address] 09/30/2025 11:30 AM EDT Office Visit [facility] [address] [place] [address] Aysha Crews MD [address] [place] [address] documented as of this encounter Visit Diagnoses Not on filedocumented in this encounter Additional Health Concerns Assessment Noted Time A fall risk assessment has been complete d for the patient 11/11/2024 1:29 PM EDT A Body Mass Index follow-up plan has been documented for the patient 11/11/2024 5:31 PM EDT documented as of this encounter Care Teams Revenue Cycle Specialist Relationship Specialty Start Date End Date Inna Serrano APRN [address] [place] [address] PCP - General 02/19/24 Ángela Millard APRN [address] [place] [address] Nurse Practitioner Neurosurgery 09/17/21 documented as of this encounter
--- OUTSIDE RECORDS SUMMARY | 2024-12-09 14:46 | XMS_ITS | Encounter Summary ---
Author Organization Healthcare Address [address] [place] [id number] Care Team Providers Care Hide Cleaner Name Role Phone Ángela Millard IRONER SOCK Unavailable [phone] Inna Serrano IRONER SOCK Primary Care Provider [phone] Encounter Details Date Type Department Care Team (Late st Contact Info) Description 12/03/2024 Telephone [facility] [address], 2nd [place] [address] Aysha Crews MD [address] [place] [address] Social History Tobacco Use Types [...] Telephone Encounter - Alison Jonas RN - 12/04/2024 10:39 AM EDT RN spoke with pt. RN told pt that skin lesions would be better addressed by a radio mechanic or other specialist and that his PCP would be the one to make that referral. Pt expressed concern that manydermatologists don't take medicaid. RN advised pt to reach out to PCP and work with them to find a radio mechanic that does accept his insurance. Pt verbalized understanding and agreeable to plan. * Telephone Encounter - Alissa Mcintyre - 12/04/2024 8:39 AM EDT Patient is calling back to check on the status of this, he is wanting to make sure he doesn't have skin cancer. * Telephone Encounter - Bertha Contreras - 12/03/2024 10:09 AM EDT Patient states he saw his PCP on 11/29/2024 and they saw lesions on face, neck, and stomach that are black. 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 documented in this encounter Plan of Treatment Upcoming Encounters Date Type Department Care Team (Late st Contact Info) Description 12/24/2024 2:50 PM EDT Office Visit [facility] Orthopaedic Surgery & Sports Medicine [address] [place] [address] Apollo Torres, DPLeland [address] [place] [address] 02/12/2025 3:00 PM EDT Office Visit [facility] Rehabilitation [facility] at [facility] [address] [place] [address] Leslie Suarez DO [address] [place] [address] 09/30/2025 10:10 AM EDT Appointment [facility] [address] [place] [address] 09/30/2025 11:30 AM EDT Office Visit [facility] [address], 2[address] [place] [address] Aysha Crews MD [address] [facility] [address] [place] [address] documented as of this encounter Visit Diagnoses Not on filedocumented in this encounter Additional Health Concerns Assessment Noted Time A fall risk assessment has been complete d for the patient 11/11/2024 1:29 PM EDT A Body Mass Index follow-up plan has been documented for the patient 11/11/2024 5:31 PM EDT documented as of this encounter Care Teams Hide Cleaner Relationship Specialty Start Date End Date Inna Serrano APRN [address] [place] [address] PCP - General 02/19/24 Ángela Millard APRN [address] [place] [address] Nurse Practitioner Neurosurgery 09/17/21 documented as of this encounter
--- OUTSIDE RECORDS SUMMARY | 2024-12-09 14:46 | XMS_ITS | Clinical Summary ---
Author Organization [facility] Address [address] [place] [address] Care Team Providers Care Scooper Name Role Phone Ángela Millard CT SCAN TECHNICIAN Unavailable [phone] SCAN TECHNICIAN Primary Care Provider [phone] Allergies Active Allergy Reactions Criticality Noted Date Comments Albuterol Other - please document in the comment field Low 01/11/2024 Cholestatin Other - please document in the comment field Low 08/02/2010 G I bleed Ciprofloxacin Anaphylaxis,Other - please document in the comment field,Swelling,Unkn own - Patient states they do not know rxn details High 05/28/2010 Prednisone & Diphenhydramine Anaphylaxis,Swellin g High 10/23/2012 Erythromycin Anaphylaxis,Other - please document in the comment field,Swelling High 05/28/2010 Ibuprofen Unknown - Patient states they do not know rxn details Low 10/23/2012 Iodinated Contrast Media Other - please document in the comment field,Swelling High 01/11/2024 Iv Contrast Other - please document in the comment field,Swelling High 05/28/2010 Cephalexin Shortness of breath,Swelling High 09/24/2024 Lisinopril Swelling High 04/25/2019 Losartan Other - please document in the comment field High 01/11/2024 Milk-Related Compounds Other - please document in the comment field High 11/01/2018 CAUSES PLEURAL EFFUSIONS CAUSES PLEURAL EFFUSIONS Nsaids Anaphylaxis,Swellin g,Unknown - Patient states they do not know rxn details High 02/04/2013 Non specific Other Swelling High 11/01/2018 STERIODS Penicillins Rash,Anaphylaxis,It dean,Swelling High 05/28/2010 Prednisone Anaphylaxis,Swellin g,Unknown - Patient states they do not know rxn details High 05/12/2014 Patient states he has the same reaction to all steroids Shellfish Allergy Unknown - Patient states they do not know rxn details Low 05/12/2014 Shellfish-Derived Products Anaphylaxis,Swellin g High 10/23/2012 Sulfacetamide Anaphylaxis,Swellin g High 10/23/2012 Tilactase Swelling,Unknown - Patient states they do not know rxn details High 10/23/2012 Tramadol Other - please document in the comment field,Swelling High 01/11/2024 Tramadol-Acetaminophen Other - please document in the comment field,Unknown - Patient states they do not know rxn details Low 08/02/2010 Medications EPINEPHrine (Epipen) 0.3 MG/0.3ML injection syringe 8 Active promethazine (Phenergan) 25 MG tablet Take 1 tablet (25 mg) by mouth. 9 Active amantadine (Symmetrel) 100 MG tablet Take 1 tablet (100 mg) by mouth 1 (one) time each day. 3 Active doxazosin (Cardura) 4 MG tablet Take 1 tablet (4 mg) by mouth every night. 3 Active isosorbide mononitrate ER (Imdur) 120 MG 24 hr tablet Take 1 tablet (120 mg) by mouth 1 (one) time each day. 3 Active metOLazone (Zaroxolyn) 5 MG tablet Take 1 tablet (5 mg) by mouth 1 (one) time each day. 3 Active nitroglycerin (Nitrostat) 0.4 MG SL tablet 3 Active rosuvastatin (Crestor) 40 MG tablet 3 Active metoprolol succinate XL (Toprol-XL) 100 MG 24 hr tablet Take 1 tablet (100 mg) by mouth 1 (one) time each day. 3 Active NIFEdipine XL (Procardia XL) 90 MG 24 hr tablet 3 Active naloxone (Narcan) 4 mg/0.1 mL nasal spray 1. Give 1 spray in nostril for no/slow breathing or cannot wake after opioid use 2. Call 911 3. Repeat in other nostril if symptoms continue 1 each 4 Active pantoprazole (Protonix) 40 MG EC tablet 4 Active diclofenac (Voltaren) 1 % topical gel 4 Active metoclopramide (Reglan) 10 MG tablet Take 1 tablet (10 mg) by mouth. 4 Active Entresto 49-51 MG tablet Take 1 tablet by mouth 2 times a day. 5 Active tamsulosin (Flomax) 0.4 MG 24 hr capsule Take 1 capsule by mouth daily. 5 Active LORazepam (Ativan) 0.5 MG tablet Take 1 tablet by mouth 2 times a day. 5 Active furosemide (Lasix) 40 MG tablet Take 1 tablet by mouth daily. 5 Active HYDROcodone-nelida taminophen (Slaton) 5-325 MG tablet Take 1 tablet by mouth every 6 hours as needed for severe pain. 120 tablet 5 Active cyclobenzaprine (Flexeril) 5 MG tablet Take 1 tablet by mouth 2 times a day. 120 tablet 3 5 Active HYDROcodone-nelida taminophen (Slaton) 5-325 MG tablet Take 1 tablet by mouth every 6 hours as needed for severe pain. 120 tablet 5 11/12/19 25 Discontinu ed(Reorder ) cyclobenzaprine (Flexeril) 5 MG tablet Take 1 tablet by mouth 2 times a day. 120 tablet 3 5 11/12/19 25 Discontinu ed(Reorder ) Active Problems Problem Noted Date Diagnosed Date Tobacco use disorder 09/24/2024 Second hand smoke exposure 09/24/2024 Chronic back pain 08/21/2018 Elbow pain 08/17/2017 DJD (degenerative joint disease) 05/12/2014 Encounters Date Type Department Care Team Description 12/09/2024 Telephone [facility] [address] [place] [address] Leslie Suarez DO HCN - Patient Message 12/03/2024 Telephone [facility] [address] , [address] [place] [address] Aysha Crews MD 12/02/2024 Telephone [facility] [address] [place] [address] Leslie Suarez, HCN - Patient Message 11/12/2024 Telephone [facility] [address] , [address] [place] [address] Aysha Crews MD 11/11/2024 1:40 PM EDT Office Visit [facility] [address] [place] [address] Leslie Suarez, High risk medication use (Primary Dx) 11/11/2024 Travel 10/31/2024 Telephone [facility] [address] [place] [address] Leslie Suarez, HCN - Patient Message; HCN Status Update Call #1 10/31/2024 Telephone [facility] [address] [place] [address] Leslie Suarez, HCN - Patient Message 10/28/2024 Telephone [facility] [address] [place] [address] Leslie Suarez, HCN - Patient Message 10/24/2024 Telephone [facility] [address] [place] [address] Leslie Suarez, HCN - Patient Message 10/23/2024 Telephone [facility] [address] [place] [address] yAsha Crews MD 10/22/2024 Telephone [facility] [address] [place] [address] Leslie Suarez, HCN Clinical Concern/Question 10/21/2024 Telephone [facility] [address] [place] [address] Leslie Suarez DO HCN Status Update Call #1 10/10/2024 Telephone [facility] [address] [place] [address] Leslie Suarez DO HCN - Rx Refill Request 10/03/2024 Telephone [facility] [address], [address]st [address] [place] [address] Sancho Gutierrez, LOUIE HCN - Patient Message 10/02/2024 Telephone [facility] [address], [address] [place] [address] Sancho Gutierrez, SARANYAM HCN - Patient Message 10/01/2024 Travel 09/30/2024 Orders Only [facility] [address], [address] [facility] [address] [place] [address] Sancho Gutierrez, DPM Bilateral foot pain (Primary Dx) 09/25/2024 Telephone [facility] [address] [facility], [address] [place] [address] Aysha Crews MD 09/24/2024 11:00 AM EDT Office Visit [facility] [address] [id number] Aysha Crews MD Lung nodule (Primary Dx) 09/24/2024 Telephone [facility] [address] [place] [address] Leslie Suarez DO HCN - Patient Message 09/24/2024 Travel 09/19/2024 Travel 09/19/2024 Telephone [facility] [address] [place] [address] Leslie Suarez DO HCN - Patient Message 09/18/2024 Telephone [facility] [address], [address] [place] [address] Sancho Gutierrez, DPM HCN - Patient Message 09/17/2024 Telephone [facility] [address] [facility], [address]nd [place] [address] Nina Santos RN 09/16/2024 Telephone [facility] [address] [facility], [address]nd [place] [address] Ramo Bhatt MD 09/12/2024 Travel 09/09/2024 Refill [facility] [address] [place] [address] Leslie Suarez DO from Last 3 Months Immunizations Immunization Administration Dates Next Due DTaP 08/21/2013 Influenza, Unspecified 03/01/2011 Influenza, intradermal, quad rivalent, preservative free 05/23/2018 Pneumococcal Conjugate PCV 13 02/05/2024, 019 TD (adult), 2 Lf tetanus tox oid, preservative free, adsorbed 03/05/2004 Family History Medical History Relation Name Comments Dislocations Brother Mothers brother Diabetes Father Luca Epilepsy Father Luca Hypertension Father Luca Allergies Mother Luca Arthritis Mother Luca Asthma Mother Luca Cancer Mother Luca Hyperlipidemia Mother Luca Hypertension Mother Luca Lung cancer Mother Luca Osteoporosis Mother Luca Broken bones Mother's Brother 1 Mother Severe sprains Mother's Brother 2 Luca mother Heart attack Other 1 Cancer Other 2 Conversions - Other Other 3 Other Sp ecified Family Circumstances Diabetes Paternal Grandfather Father Relation Name Status Comments Brother Mothers brother Father Luca Mother Luca Mother's Brother 1 Mother Mother's Brother 2 Luca mother Other 1 Other 2 Other 3 Paternal Grandfather Father Social History Tobacco Use Types Packs/Day Years [...] on file Sexual Orientation Not on file Last Filed Vital Signs Vital Sign Reading Time Taken Comments Blood Pressure 161/103 11/11/2024 1:27 PM EDT Pulse 81 09/24/2024 10:16 AM EDT Temperature 36.7 C (98 F) 09/02/2021 8:57 AM EDT Respiratory Rate 18 09/24/2024 10:16 AM EDT Oxygen Saturation 97% 09/24/2024 10:16 AM EDT Inhaled Oxygen Concentration - - Weight 105 kg (232 lb) 11/11/2024 1:27 PM EDT Height 182.9 cm (6') 11/11/2024 1:27 PM EDT Body Mass Index 31.46 11/11/2024 1:27 PM EDT Plan of Treatment Upcoming Encounters Date Type Department Care Team (Late st Contact Info) Description 12/24/2024 2:50 PM EDT Office Visit [facility] [address], [address] [place] [address] Apollo Torres, DPM [address] [place] [address] 02/12/2025 3:00 PM EDT Office Visit [facility] [address] [place] [address] Leslie Suarez DO [address] [place] [address] 09/30/2025 10:10 AM EDT Appointment [facility] [address] [place] [address] 09/30/2025 11:30 AM EDT Office Visit [facility] [address] [place] [address] Aysha Crews MD [address] [place] [address] Health Maintenance Due Date Last Done Comments [facility]-HIV Screening 1965 [facility]-Hepatitis C Screening 1967 [facility]-Infant/Child/Adol SDOH Screenings 1965 [facility]- SDOH Screenings 11/13/1985 [facility]-Adult SDOH Screenings 11/13/1985 [facility]-Hepatitis B Vaccines (1 of 3 - 19+ 3-dose series) 11/13/1986 CT Colonography 11/13/2012 Colonoscopy 11/13/2012 FIT-DNA 11/13/2012 FIT 11/13/2012 FOBT 11/13/2012 Sigmoidoscopy 11/13/2012 [facility]-Colorectal Cancer Screening 11/13/2012 [facility]-Zoster Vaccines (1 of 2) 11/13/2017 [facility]-DTaP,Tdap,and Td Vaccines (2 - Tdap) 08/22/2023 08/21/2013, 03/05/2004 [id number] Vaccine (1 - season) 2024 [facility]-Pneumococcal Vaccine: 50+ Years (2 of 2 - PPSV23) 04/01/2024 02/05/2024, 05/23/2018 [facility]-Influenza Vaccine (#1) 2025 03/01/2011 [facility]-Depression Screening 11/11/2025 11/11/2024 [facility]-Obesity Intervention Completed 025, 09/24/2024, 08/12/2024, Additional history exists HPV Vaccines Aged Out No longer eligi ble based on patient's age to complete this topic [facility]-HIB Vaccines Aged Out No longer e ligible based on patient's age to complete this topic [facility]-Hepatitis A Vaccines Aged Out No longer eligible based on patient's age to complete this topic [facility]-IPV Vaccines Aged Out No longer e ligible based on patient's age to complete this topic [facility]-Rotavirus Vaccines Aged Out No lo nger eligible based on patient's age to complete this topic Insurance [facility] MEDICAID Care Teams Scooper Relationship Specialty Start Date End Date Inna Serrano APRN [address] [place] [address] PCP - General 02/19/24 Ángela Millard, CT SCAN TECHNICIAN [address] [place] [address] Nurse Practitioner Neurosurgery 09/17/21
--- OUTSIDE RECORDS SUMMARY | 2024-12-09 14:46 | XMS_ITS | Encounter Summary ---
Author Organization [facility] Address [address] [place] [address] Care Team Providers Care Protocol Manager Name Role Phone Ángela Millard LIBRARY SPECIALIST Unavailable Inna Serrano APRN Primary Care Provider [phone] Reason for Visit * Reason Onset Date Comments HCN - Patient Message 12/09/2024 Encounter Details Date Type Department Care Team (Late st Contact Info) Description 12/09/2024 Telephone [facility] [address] [facility] [place] [address] Leslie Suarez DO [address] [facility] [address] [place] [address] HCN - Patient Message Social [...] Telephone Encounter - Leslie Suarez DO - 12/09/2024 10:14 AM EDT Tell him thanks for the fu * Telephone Encounter - Minnie Edmondasha Ekaterina - 12/09/2024 9:16 AM EDT Clinical Concern/Question Reason for Call: Pt is calling to let you know he is going to see his neuro due to kidney functionsplease call to advise Best contact number: [phone] (mobile) Optimal time of day to reach caller: ANYTIME Additional comments/information from caller: None Note: Please do not reply to this message. Follow-up communication and further actions as a result of this message need to be communicated with the patient directly, if the patient is not active onMyChart. If the patient is active on MyChart, they will receive notification of the communication/outcome via [email or web address]. documented in this encounter Plan of Treatment Upcoming Encounters Date Type Department Care Team (Late st Contact Info) Description 12/24/2024 2:50 PM EDT Office Visit [facility] Orthopa[facility] Surgery & Sports Medicine [address], [address] [place] [address] Apollo Torres, DPLeland [address] [place] [address] 02/12/2025 3:00 PM EDT Office Visit [facility] [address] [place] [address] Leslie Suarez DO [address] [place] [address] 09/30/2025 10:10 AM EDT Appointment [facility] [address] [place] [address] 09/30/2025 11:30 AM EDT Office Visit [facility] [address] [place] [address] Aysha Crews MD [address] [place] [address] documented as of this encounter Visit Diagnoses Not on filedocumented in this encounter Additional Health Concerns Assessment Noted Time A fall risk assessment has been complete d for the patient 11/11/2024 1:29 PM EDT A Body Mass Index follow-up plan has been documented for the patient 11/11/2024 5:31 PM EDT documented as of this encounter Care Teams Protocol Manager Relationship Specialty Start Date End Date Inna Serrano APRN [address] [place] [address] PCP - General 02/19/24 Ángela Millard, BELINDA [address] [place] [address] Nurse Practitioner Neurosurgery 09/17/21 documented as of this encounter
[2024-12-09 15:26] LABS: Blood Urea Nitrogen 9 mg/dl (9-20); Creatinine,Serum 1.10 mg/dl (0.66-1.25); Estimated Glomerular Filt Rate 69 ml/min (>60); GFR (African American) 83 ML/MIN (>60)
== END 2024-12-09 23:59 | disposition home or self-care (01) ==
LOC: LAB 14:42
PROVIDERS: PCP Nurse Practitioner; Visit Provider Urology
DX: N19 Unspecified kidney failure (principal)
CPT/HCPCS: 36415; 82565; 84520

== ENCOUNTER 2025-01-21 14:09 | Outpatient (CLI) | payer MEDICAID, SELFPAY ==
--- OUTSIDE RECORDS SUMMARY | 2025-01-08 14:00 | XMS_ITS | Encounter Summary ---
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 Absolute 0.04 0.00 - 0.06 10*3/uL LAB HEMATOLOGY METHOD 01/08/2025 5:22 PM EDT [facility] Blood Venous blood specimen / Unknown Venipuncture / Unknown 01/08/2025 3:44 PM EDT 01/08/2025 3:44 PM EDT Narrative [facility] - 01/08/2025 5:22 PM EDT Therapeutic decision making should be based on absolute values, rather than percentages. us David Workman MD LAB BLOOD ORDERABLES Final Resul t [facility] [address] [place] [address] * (ABNORMAL) Renal Function Panel, Plasma (01/08/2025 3:44 PM EDT) Glucose, Plasma 96 74 - 99 mg/dL 01/08/2025 5:54 PM EDT [facility] BUN, Plasma 8 7 - 21 mg/dL 01/08/2025 5:54 PM EDT [facility] Creatinine, Plasma 1.26(H) 0.70 - 1.20 mg/dL 01/08/2025 5:54 PM EDT [facility] BUN/Creatinine Ratio 6 01/08/2025 5:54 PM EDT [facility] Sodium, Plasma 140 136 - 145 mmol/L 01/08/2025 5:54 PM EDT [facility] Potassium, Plasma 3.5(L) 3.6 - 4.9 mmol/L 01/08/2025 5:54 PM EDT [facility] Chloride, Plasma 102 97 - 107 mmol/L 01/08/2025 5:54 PM EDT [facility] CO2, Plasma 26 22 - 29 mmol/L 01/08/2025 5:54 PM EDT [facility] Anion Gap 12 6 - 16 mmol/L 01/08/2025 5:54 PM EDT [facility] Total Calcium, Plasma 9.1 8.9 - 10.2 mg/dL 01/08/2025 5:54 PM EDT [facility] Phosphorus, Plasma 3.3 2.5 - 4.5 mg/dL 01/08/2025 5:54 PM EDT [facility] Albumin, Plasma 4.4 3.5 - 5.2 g/dL 01/08/2025 5:54 PM EDT [facility] eGFRcr 66.5 mL/min/1.7 3m*2 01/08/2025 5:54 PM EDT [facility] Comment:Reported eGFRcr in m L/min/1.73m2 is based the CKD-EPI 2020 equation that does not use a race coefficient. Blood Venous blood specimen / Unknown Venipuncture / Unknown 01/08/2025 3:44 PM EDT 01/08/2025 3:44 PM EDT us David Workman MD LAB BLOOD ORDERABLES Final Resul t Performing Organization Address City/[facility] [[email or web address]] Co de Phone Number [facility] [address] [place] [address] * Protein, Random, Urine with Creatinine (01/08/2025 3:40 PM EDT) Protein, Urine 13 mg/dL 01/08/2025 5:55 PM EDT [facility] Creatinine, Urine 86 mg/dL 01/08/2025 5:55 PM EDT [facility] Protein/Creati nine Ratio 0.2 mg/mg Creat 01/08/2025 5:55 PM EDT [facility] Urine Urine specimen obtained by clean catch procedure / Unknown Non-blood Collection / Unknown 01/08/2025 3:40 PM EDT 01/08/2025 3:40 PM EDT us David Workman MD LAB URINE ORDERABLES Final Resul t Performing Organization Address [facility] de Phone Number [facility] [address] [place] [address] * Albumin-creatinine ratio, urine, random (01/08/2025 3:40 PM EDT) Microalbumin, Urine 1.78 <1.9 mg/dL 01/08/2025 6:10 PM EDT [facility] Creatinine, Urine 87 mg/dL 01/08/2025 6:10 PM EDT [facility] Albumin/Creati nine Ratio 20 0 - 30 mg/g creatinine 01/08/2025 6:10 PM EDT [facility] Urine Urine specimen obtained by clean catch procedure / Unknown Non-blood Collection / Unknown 01/08/2025 3:40 PM EDT 01/08/2025 3:40 PM EDT us David Workman MD LAB URINE ORDERABLES Final Resul t Performing Organization Address City/[facility]/ZIP Co de Phone Number [facility] [address] [place] [address] * Urinalysis with reflex microscopic (Culture NOT Included) (01/08/2025 3:40 PM EDT) Color, Urine Yellow LAB URINALYSIS - AUTOMATED METHOD 01/08/2025 5:15 PM EDT [facility] Clarity, Urine Clear LAB URINALYSIS - AUTOMATED METHOD 01/08/2025 5:15 PM EDT [facility] Spec [place], Urine 1.010 1.005 - 1.030 LAB URINALYSIS - AUTOMATED METHOD 01/08/2025 5:15 PM EDT [facility] pH, Urine 6.0 5.0 - 8.0 LAB URINALYSIS - AUTOMATED METHOD 01/08/2025 5:15 PM EDT [facility] Protein, Urine Negative Negative mg/dL LAB URINALYSIS - AUTOMATED METHOD 01/08/2025 5:15 PM EDT [facility] Glucose, Urine Negative Negative mg/dL LAB URINALYSIS - AUTOMATED METHOD 01/08/2025 5:15 PM EDT [facility] Ketones, Urine Negative Negative mg/dL LAB URINALYSIS - AUTOMATED METHOD 01/08/2025 5:15 PM EDT [facility] Blood, Urine Negative Negative LAB URINALYSIS - AUTOMATED METHOD 01/08/2025 5:15 PM EDT [facility] Bilirubin, Urine Negative Negative LAB URINALYSIS - AUTOMATED METHOD 01/08/2025 5:15 PM EDT [facility] Urobilinogen, Urine 0.2 0.2 to 1.0 mg/dL LAB URINALYSIS - AUTOMATED METHOD 01/08/2025 5:15 PM EDT [facility] Leukocytes, Urine Negative Negative LAB URINALYSIS - AUTOMATED METHOD 01/08/2025 5:15 PM EDT [facility] Nitrite, Urine Negative Negative LAB URINALYSIS - AUTOMATED METHOD 01/08/2025 5:15 PM EDT [facility] Urine Urine specimen obtained by clean catch procedure / Unknown Non-blood Collection / Unknown 01/08/2025 3:40 PM EDT 01/08/2025 3:40 PM EDT us David Workman MD LAB URINE ORDERABLES Final Resul t [facility] [address] [place] [address] documented in this encounter Visit Diagnoses Diagnosis CKD stage 3a, GFR 45-59 ml/min ([facility])- Primary documented in this encounter Additional Health Concerns Assessment Noted Time A fall risk assessment has been complete d for the patient 01/08/2025 1:58 PM EDT A Body Mass Index follow-up plan has been documented for the patient 01/08/2025 3:33 PM EDT documented as of this encounter Care Teams Postal Transportation Clerk Relationship Specialty Start Date End Date Inna Serrano APRN [address] [place] [address] PCP - General 02/19/24 Ángela Millard APRN [address] [place] [address] Nurse Practitioner Neurosurgery 09/17/21 documented as of this encounter
--- NOTE | 2025-01-21 14:10 | US_ITS ---
FINAL REPORT TECHNIQUE: Multiple sonographic images of the kidneys were obtained in the longitudinal and transverse planes. CLINICAL HISTORY: CKD STAGE 3A FINDINGS: The right kidney measures 10.4 cm in [id number] length. There is no hydronephrosis, mass or stone. Cortical echogenicity and cortical thickness are within normal limits. The left kidney measures 10.3 cm in [id number] length. There is no hydronephrosis, mass or stone. Cortical echogenicity and cortical thickness are within normal limits. IMPRESSION: Morphologically normal kidneys bilaterally. Reviewed, Interpreted and Dictated by Henry Silva MD Transcribed by Cinthia Chen Authenticated and [facility]
--- OUTSIDE RECORDS SUMMARY | 2025-01-21 14:11 | XMS_ITS | Clinical Summary ---
[facility] Address [address] [place] [address] Care Team Providers Care Cloud Solutions Architect Name Role Phone Delmer Fritz MD Primary Care Provider [phone] Allergies Active Allergy Reactions Criticality Noted Date [...] 100 MG 24 hr tablet 09/28/2023 Act mia doxazosin (CARDURA) 4 MG tablet 09/28/2023 Active [...] - 11/08/2024 11:59 PM EDT Hospital Encounter [facility] [address] [place] [address] Antwan Armstrong MD Amyloidosis, unspecified [...] Date Smoking Tobacco: Every Day Cigarettes 0.3 38.7 Started: 1984 Smokeless Tobacco: Former Tobacco Cessation:Ready [...] Job Start Date Job 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 Not 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 Not on file Not [...] 08/20/2024 12:09 PM EDT Plan of Treatment Upcoming Encounters Date Type Department Care Team (Late st Contact Info) Description 01/29/2025 10:45 AM EDT Appointment [facility] [address] [facility] [address] [place] [address] 01/29/2025 12:15 PM EDT Appointment [facility] [address] [facility] [address]rd [place] [address] Health Maintenance Due Date Last Done Comments COLOGUARD 11/13/2012 COLON CANCER SCREENING 5 YEA R SIGMOIDOSCOPY 11/13/2012 COLONOSCOPY 11/13/2012 COLORECTAL CANCER SCREENING 11/13/2012 CT COLONOGRAPHY 11/13/2012 FECAL OCCULT BLOOD TEST 11/13/2012 FIT Testing (1 year) 11/13/2012 TDAP/TD VACCINES (2 - Tdap) 03/05/2014 03/05/2004 ZOSTER VACCINE (1 of 2) 11/13/2017 ANNUAL PHYSICAL 08/21/2018 HEPATITIS C SCREENING 08/21/2018 Pneumococcal Vaccine 50+ (2 of 2 - PPSV23) 04/01/2024 02/05/2024, 05/23/2018 COVID-19 Vaccine (1 - season) 2025 INFLUENZA VACCINE 02/19/2025 05/23/2018, 03/01/2011 Procedures Procedure [...] Final Result from Last 3 Months Insurance [employer] Care Teams Cloud Solutions Architect Relationship Specialty Start Date End Date Delmer Fritz MD [address] [place] [phone] PCP - General Family Medicine 08/07/24
--- OUTSIDE RECORDS SUMMARY | 2025-01-21 14:11 | XMS_ITS | Encounter Summary ---
Author Organization Healthcare Address [address] [place] [address] Care Team Providers Care Director Of Agronomy Name Role Phone Ángela Millard STARCH DUMPER Unavailable [phone] Inna Serrano APRN Primary Care Provider [phone] Reason for Visit * Reason Onset Date Comments HCN Status Update Call #2 01/08/2025 Encounter Details Date Type Department Care Team (Late st Contact Info) Description 01/08/2025 Telephone Physical Medicine & Rehabilitation Clinic at [facility] [address] [facility] [place] [address] Leslie Suarez DO [address] [facility] [address] [place] [address] HCN Status Update Call #2 Social History Tobacco Use Types Packs/Day Years [...] encounter Miscellaneous Notes * Telephone Encounter - Germaine Hart - 01/15/2025 12:49 PM EDT Status Update Call #2 2nd call regarding the status of the initial request. Best contact number: [phone] (mobile) Optimal time of day to reach caller: ANYTIME Additional comments/information from caller: Patient calling regarding RX needing a PA sent to the pharmacy [facility]. Patient states the medication is due today and he cannot fill without the PA. Note: Please do not reply to this message. Follow-up communication and further actions as a result of this message need to be communicated with the patient directly, if the patient is not active onMyChart. If the patient is active on MyChart, they will receive notification of the communication/outcome via [employer]. * Telephone Encounter - Malena Edmond - 01/09/2025 9:07 AM EDT Status Update Call #1 1st call regarding the status of the initial request. Best contact number: [phone] (mobile) Optimal time of day to reach caller: ANYTIME Additional comments/information from caller: Pt is calling to check the status of drug results Note: Please do not reply to this message. Follow-up communication and further actions as a result of this message need to be communicated with the patient directly, if the patient is not active onMyChart. If the patient is active on MyChart, they will receive notification of the communication/outcome via MyChart. * Telephone Encounter - Dee Dee Jenkins MD - 01/08/2025 3:28 PM EDT Noted. Thanks. Will watch for results * Telephone Encounter - Poly Squires - 01/08/2025 2:36 PM EDT Spoke with pt he just wanted to inform . It was done at . * Telephone Encounter - Nikki Garg - 01/08/2025 2:15 PM EDT Clinical Concern/Question Reason for Call: Prince, Patient is calling and asked to advise provider that he had done the drug test today that the provider requested. Best contact number: [phone] (mobile) Optimal time of day to reach [...] Description 02/12/2025 3:00 PM EDT Office Visit [facility] [address] [place] [address] Leslie Suarez DO [address] [place] [address] 04/08/2025 12:00 PM EST Office Visit [facility]ph[facility], [facility]eral Metabolism [address] [facility], [address] [place] [address] David Workman MD [address] [place] [address] 09/30/2025 10:10 AM EDT Appointment [facility] [address] [place] [address] 09/30/2025 11:30 AM EDT Office Visit [facility] [address] [facility], 2nd [place] [address] Aysha Crews MD [address] [place] [address] documented as of this encounter Visit Diagnoses Not on filedocumented in this encounter Additional Health Concerns Assessment Noted Time A fall risk assessment has been complete d for the patient 01/08/2025 1:58 PM EDT A Body Mass Index follow-up plan has been documented for the patient 01/08/2025 3:33 PM EDT documented as of this encounter Care Teams Director Of Agronomy Relationship Specialty Start Date End Date Inna Serrano APRN [address] [place] [address] PCP - General 02/19/24 Ángela Millard APRN [address] [place] [address] Nurse Practitioner Neurosurgery 09/17/21 documented as of this encounter
--- OUTSIDE RECORDS SUMMARY | 2025-01-21 14:11 | XMS_ITS | Clinical Summary ---
Author Organization [facility] Address [address] [place] [address] Phone Care Team Providers Care Box Brander Name Role Phone Unavailable Primary Care Provider [...] to complete this topic Insurance [employer] [place] [id number] [facility] [id number] [facility]
--- OUTSIDE RECORDS SUMMARY | 2025-01-21 14:11 | XMS_ITS | Encounter Summary ---
Author Organization [facility] Address [address] [place] [address] Care Team Providers Care End Maker Name Role Phone Ángela Millard REPLANTER Unavailable [phone] Inna Serrano APRN Primary Care Provider [phone] Reason for Visit * Reason Onset Date Comments HCN - Patient Message 10/24/2024 Encounter Details Date Type Department Care Team (Late st Contact Info) Description 10/24/2024 Telephone Physical Medicine & Rehabilitation Clinic at [facility] [address] [facility] [place] [address] Leslie Suarez DO [address] [facility] [address] [place] [address] HCN - Patient Message Social [...] with congestive heart failure. Best contact number: [phone] (mobile) Optimal time of day to reach [...] Visit [facility] at [facility] [address] [place] [address] Leslie Suarez DO [address] [place] [address] 04/08/2025 12:00 PM EST Office Visit [facility] [place] Nephrology, Bone & Mineral Metabolism [address] [facility], [address] [place] [address] David Workman MD [address] [place] [address] 09/30/2025 10:10 AM EDT Appointment [facility] Radiology [address] [place] [address] 09/30/2025 11:30 AM EDT Office Visit [facility] [address] [facility], 2nd [place] [address] Aysha Crews MD [address] [facility] [address] [place] [address] documented as of this encounter Visit Diagnoses Not on filedocumented in this encounter Additional Health Concerns Assessment Noted Time A fall risk assessment has been complete d for the patient 09/24/2024 10:19 AM EDT A Body Mass Index follow-up plan has been documented for the patient 09/24/2024 12:24 PM EDT documented as of this encounter Care Teams End Maker Relationship Specialty Start Date End Date Inna Serrano APRN [address] [place] [address] PCP - General 02/19/24 Ángela Millard APRN [address] [place] [address] Nurse Practitioner Neurosurgery 09/17/21 documented as of this encounter
--- OUTSIDE RECORDS SUMMARY | 2025-01-21 14:11 | XMS_ITS | Encounter Summary ---
Author Organization Healthcare Address [address] [place] [address] Care Team Providers Care Foam Dispenser Name Role Phone Antwan Esparza MD Primary Care Provider + [phone] Ángela Millard FELTMAKER Unavailable [phone] Inna Serrano APRN Primary Care Provider [phone] Encounter Details Date Type Department Care Team (Late st Contact Info) Description 12/20/2023 Orders Only External Location [address] [place] [address] Provider, External Social History Tobacco Use Types [...] at all 12/21/2023 2:54 PM EDT Branden Sanchez RN Feeling down, depressed, or hopeless Not at all 12/21/2023 2:54 PM EDT Branden Calderon RN Patient Health Questionnaire-2 Score 0 12/21/2023 2:54 PM EDT Branden Jules RN * Calculated C-SSRS Risk Score (Lifetime/Recent) Answer [...] Visit Physical Medicine & Rehabilitation Clinic at [facility] [address] [place] [address] Leslie Suarez DO [address] [facility] [address] [place] [address] 04/08/2025 12:00 PM EST Office Visit [facility] Nephrology, Bone & Mineral Metabolism [address] [facility], [address] [place] [address] David Workman MD [address] [place] [address] 09/30/2025 10:10 AM EDT Appointment [facility] Radiology [address] [place] [address] 09/30/2025 11:30 AM EDT Office Visit [facility] [address] [facility], 2nd [place] [address] Aysha Crews MD [address] [facility] [address] [place] [address] documented as of this encounter Procedures Procedure Name Priority Date/Time Associated Diagnosis Comments XR OUTSIDE IMAGES 12/20/2023 1:52 PM EDT documented in this encounter Results * XR OUTSIDE IMAGES (12/20/2023 1:52 PM EDT) Anatomical Region Laterality Modality Radiographic Kendra ging 12/20/2023 1:52 PM EDT External Provider IMG XR PROCEDURES Final Result documented in this encounter Visit Diagnoses Not on filedocumented in this encounter Additional Health Concerns Assessment Noted Time A fall risk assessment has been complete d for the patient 09/20/2023 2:37 PM EDT A Body Mass Index follow-up plan has been documented for the patient 09/25/2023 3:28 PM EDT documented as of this encounter Care Teams Foam Dispenser Relationship Specialty Start Date End Date Antwan Esparza MD [address] [place] [address] PCP - General 12/14/20 02/18/24 Inna Serrano APRN [address] [place] [address] PCP - General 02/19/24 Ángela Millard APRN [address] [place] [address] Nurse Practitioner Neurosurgery 09/17/21 documented as of this encounter
--- OUTSIDE RECORDS SUMMARY | 2025-01-21 14:11 | XMS_ITS | Encounter Summary ---
Author Organization [facility] Address [address] [place] [id number] Care Team Providers Care International Logistics Analyst Name Role Phone Ángela Millard MULTICULTURAL SERVICES LIBRARIAN Unavailable [phone] Inna Serrano MULTICULTURAL SERVICES LIBRARIAN Primary Care Provider [phone] Reason for Visit * Reason Onset Date Comments HCN Clinical Concern/Question 12/23/2024 Encounter Details Date Type Department Care Team ([facility] st Contact Info) Description 12/23/2024 Telephone [facility]phrology, [facility]eral Metabolism [address] [facility], [address] [place] [address] Greta Elliott MD [address] [place] [id number] HCN Clinical Concern/Question Social History Tobacco Use [...] encounter Miscellaneous Notes * Telephone Encounter - Celina Wolfe - 12/23/2024 9:54 AM EDT Rescheduled to male provider per pt. request * Telephone Encounter - Tammy Mata - 12/23/2024 8:18 AM EDT Clinical Concern/Question Reason for Call: Patient would like to change his 12/25 appointment -- he prefers only a male provider. Best contact number: [phone] (home) Optimal time of day to reach caller: ANYTIME Additional comments/information from caller: None Note: Please do not reply to this message. Follow-up communication and further actions as a result of this message need to be communicated with the patient directly, if the patient is not active onMyChart. If the patient is active on MyChart, they will receive notification of the communication/outcome via [employer]. documented in this encounter Plan of Treatment Upcoming Encounters Date Type Department Care Team (Late st Contact Info) Description 02/12/2025 3:00 PM EDT Office Visit [facility] [address] [place] [address] Leslie Suarez DO [address] [facility] [address] [place] [address] 04/08/2025 12:00 PM EST Office Visit [facility] Bone [facility] Mineral Metabolism [address] [facility], [address] [place] [address] David Workman MD [address] [place] [address] 09/30/2025 10:10 AM EDT Appointment [facility] Radiology [address] [place] [address] 09/30/2025 11:30 AM EDT Office Visit [facility] [address] [facility], 2nd [place] [address] Aysha Crews MD [address] [place] [address] documented as of this encounter Visit Diagnoses Not on filedocumented in this encounter Additional Health Concerns Assessment Noted Time A fall risk assessment has been complete d for the patient 11/11/2024 1:29 PM EDT A Body Mass Index follow-up plan has been documented for the patient 11/11/2024 5:31 PM EDT documented as of this encounter Care Teams International Logistics Analyst Relationship Specialty Start Date End Date Inna Serrano APRN [facility] [place] [address] PCP - General 02/19/24 Ángela Millard APRN [address] [place] [address] Nurse Practitioner Neurosurgery 09/17/21 documented as of this encounter
--- OUTSIDE RECORDS SUMMARY | 2025-01-21 14:11 | XMS_ITS | Encounter Summary ---
Author Organization [facility] Address [address] [place] [address] Care Team Providers Care Production Potter Name Role Phone Antwan Esparza MD Primary Care Provider [phone] Ángela Millard SYNCHRONIZER Unavailable [phone] Inna Serrano APRN Primary Care Provider [phone] Reason for Referral * Consultation (Routine) - Closed Specialty Diagnoses / Procedures Referred By Cortez johnson Referred To Contact Endocrinology Diagnoses Thyroid nodule Jose Mccracken MD [address] [facility] [address] [place] [address] Phone: tel: fax: [facility] [address] [place] [address] Phone: tel: fax: Referral ID Status Reason Start Date Expiration Date V isits Requested Visits Authorized [id number] Closed Specialty Services Required 08/01/2022 01/31/2024 1 1 Encounter Details Date Type Department Care Team (Late st Contact Info) Description 08/01/2022 Community [facility] [address] [place] [address] Jose Mccracken MD [address] [facility] [place] [address] Thyroid nodule (Primary Dx) Social [...] Rehabilitation Clinic at [facility] [address] [place] [address] Leslie Suarez DO [address] [facility] [address] [place] [address] 04/08/2025 12:00 PM EST Office Visit [facility] [address] [facility], [address] [place] [address] David Workman MD [address] [place] [address] 09/30/2025 10:10 AM EDT Appointment [facility] Radiology [address] [place] [address] 09/30/2025 11:30 AM EDT Office Visit [facility] Res[facility] [address] [facility], 2nd [place] [address] Aysha Crews MD [address] [facility] [address] [place] [address] Scheduled Referrals Name Type Priority Associated Diagnoses [...] as of this encounter Care Teams Production Potter Relationship Specialty Start Date End Date Antwan Esparza MD [address] [place] [address] PCP - General 12/14/20 02/18/24 Inna Serrano, SYNCHRONIZER [address] [place] [address] PCP - General 02/19/24 Ángela Millard APRN [address] [place] [address] Nurse Practitioner Neurosurgery 09/17/21 documented as of this encounter
--- OUTSIDE RECORDS SUMMARY | 2025-01-21 14:11 | XMS_ITS | Encounter Summary ---
Author Organization Healthcare Address [address] [place] [address] Care Team Providers Care Duplicate Maker Name Role Phone Antwan Esparza MD Primary Care Provider [phone] Ángela Millard APRN Unavailable [phone] Inna Serrano APRN Primary Care Provider [phone] Encounter Details Date Type Department Care Team (Late Contact Info) Description 12/24/2020 Orders Only External Location [address] [place] [address] Provider, External Social History Tobacco Use Types [...] Department Care Team (Late Contact Info) Description 02/12/2025 3:00 PM EDT Office Visit [facility] [address] [place] [address] Leslie Suarez DO [address] [place] [address] 04/08/2025 12:00 PM EST Office Visit [facility] Nephrology, Bone & Mineral Metabolism [address] [facility], [address] [place] [address] David Workman MD [address] [place] [address] 09/30/2025 10:10 AM EDT Appointment [facility] Radiology [address] [place] [address] 09/30/2025 11:30 AM EDT Office Visit [facility] Res[facility] [address] 2nd [place] [address] Aysha Crews MD [address] [place] [address] documented as of this encounter [...] documented as of this encounter Care Teams Duplicate Maker Relationship Specialty Start Date End Date Antwan Esparza MD [address] [place] [address] PCP - General 12/14/20 02/18/24 Inna Serrano APRN [facility] [place] [address] PCP - General 02/19/24 Ángela Millard APRN [address] [place] [address] Nurse Practitioner Neurosurgery 09/17/21 documented as of this encounter
--- OUTSIDE RECORDS SUMMARY | 2025-01-21 14:11 | XMS_ITS | Encounter Summary ---
Author Organization [facility] Address [address] [place] [address] Care Team Providers Care Printed Circuit Board Panels Trimmer Name Role Phone Ángela Millard STAFF HOME THERAPY RN Unavailable [phone] Inna Serrano APRN Primary Care Provider [phone] Encounter Details Date Type Department Care Team (Latest Contact Info) Description 01/08/2025 Travel Social History Tobacco Use Types Packs/Day [...] all 01/08/2025 1:58 PM EDT Bro Bauer B Patient Health Questionnaire-2 Score 2 01/08/2025 1:58 PM EDT Maynor Bauer * If you checked off any problems on this questionnaire so far, Question Answer Date of Assessment Author How difficult have these problems made it for you to do your work, take care of things at home, or get along with other people? Not difficult at all 01/08/2025 1:58 PM EDT Gaurav Bauer * How difficult have these problems made it for you to do your work, take care of things at home, or get along with other people? Answer Date of Assessment Author Not difficult at all 01/08/2025 1:58 PM EDT Kacey Griffith documented as of this encounter Plan of Treatment Upcoming Encounters Date Type Department Care Team (Late st Contact Info) Description 02/12/2025 3:00 PM EDT Office Visit Physical Medicine & Rehabilitation Clinic at [facility] [address] [place] [address] Leslie Suarez DO [address] [facility] [address] [place] [address] 04/08/2025 12:00 PM EST Office Visit [facility] Nephrology, Bone & Mineral Metabolism [address] [facility], [address] [place] [address] David Workman MD [address] [place] [address] 09/30/2025 10:10 AM EDT Appointment [facility] Radiology [address] [place] [address] 09/30/2025 11:30 AM EDT Office Visit [facility]ck [facility] Respiratory [address] [facility], 2nd [place] [address] Aysha Crews MD [address] [facility] [address] [place] [address] documented as of this encounter Visit Diagnoses Not on filedocumented in this encounter Additional Health Concerns Assessment Noted Time A fall risk assessment has been complete d for the patient 01/08/2025 1:58 PM EDT A Body Mass Index follow-up plan has been documented for the patient 01/08/2025 3:33 PM EDT documented as of this encounter Care Teams Printed Circuit Board Panels Trimmer Relationship Specialty Start Date End Date Inna eSrrano APRN [address] [place] [address] PCP - General 02/19/24 Ángela Millard APRN [address] [place] [address] Nurse Practitioner Neurosurgery 09/17/21 documented as of this encounter
--- OUTSIDE RECORDS SUMMARY | 2025-01-21 14:11 | XMS_ITS | Encounter Summary ---
Author Organization [facility] Address [address] [place] [address] Care Team Providers Care Curve Saw Operator Name Role Phone Ángela Millard PUPIL PERSONNEL SERVICES DIRECTOR Unavailable [phone] Inna Serrano APRN Primary Care Provider [phone] Reason for Visit * Reason Onset Date Comments HCN - Patient Message 10/28/2024 Encounter Details Date Type Department Care Team (Late st Contact Info) Description 10/28/2024 Telephone Physical Medicine & Rehabilitation [facility] at [facility] [address] [facility] [place] [address] Leslie Suarez DO [address] [facility] [address] [place] [address] HCN - Patient Message Social [...] with chronic heart failure. Best contact number: [phone] (mobile) Optimal time of day to reach [...] [facility] [address] [place] [address] Leslie Suarez DO [address] [facility] [address] [place] [address] 04/08/2025 12:00 PM EST Office Visit [facility] Nephrology, Bone & Mineral Metabolism [address] [facility], [address] [place] [address] David Workman MD [address] [place] [address] 09/30/2025 10:10 AM EDT Appointment [facility] Radiology [address] [place] [address] 09/30/2025 11:30 AM EDT Office Visit [facility] [address] [facility], 2nd [place] [address] Aysha Crews MD [address] [facility] [address] [place] [address] documented as of this encounter Visit Diagnoses Not on filedocumented in this encounter Additional Health Concerns Assessment Noted Time A fall risk assessment has been complete d for the patient 09/24/2024 10:19 AM EDT A Body Mass Index follow-up plan has been documented for the patient 09/24/2024 12:24 PM EDT documented as of this encounter Care Teams Curve Saw Operator Relationship Specialty Start Date End Date Inna Serrano APRN [address] [place] [address] PCP - General 02/19/24 Ángela Millard APRN [address] [place] [address] Nurse Practitioner Neurosurgery 09/17/21 documented as of this encounter
--- OUTSIDE RECORDS SUMMARY | 2025-01-21 14:11 | XMS_ITS | Encounter Summary ---
Author Organization [facility] Address [address] [place] [address] Care Team Providers Care Ecommerce Merchandising Manager Name Role Phone Ángela Millard PIANO AND ORGAN REFINISHER Unavailable [phone] Inna Serrano PIANO AND ORGAN REFINISHER Primary Care Provider [phone] Encounter Details Date Type Department Care Team (Late st Contact Info) Description 12/30/2024 Telephone [facility]ph[facility], [facility] Mineral Metabolism [address] [facility], [address] [place] [address] David Workman MD [address] [place] [address] Social History Tobacco Use Types Packs/Day Years [...] Miscellaneous Notes * Telephone Encounter - Celina Arce - 01/01/2025 3:55 PM EDT .secure chat sent to Dr. Workman and Dr. Lyons * Telephone Encounter - Neyda Guzman - 12/30/2024 1:08 PM EDT Clinical Concern/Question Reason for Call: Asking to speak w/nurse about health concerns at this time Best contact number: [phone] (home) Optimal time of day to reach caller: ANYTIME Additional comments/information from caller: None Note: Please do not reply to this message. Follow-up communication and further actions as a result of this message need to be communicated with the patient directly, if the patient is not active onMyChart. If the patient is active on MyChart, they will receive notification of the communication/outcome via [employer]. documented in this encounter Plan of Treatment Upcoming Encounters Date Type Department Care Team ([facility] st Contact Info) Description 02/12/2025 3:00 PM EDT Office Visit [facility] [address] [place] [address] Leslie Suarez DO [address] [place] [address] 04/08/2025 12:00 PM EST Office Visit [facility] Nephrology, Bone & Mineral Metabolism [address] [facility] [address], [address] [place] [address] David Workman MD [address] [place] [address] 09/30/2025 10:10 AM EDT Appointment [facility] [address] [place] [address] 09/30/2025 11:30 AM EDT Office Visit [facility] [address] [facility], 2nd [place] [address] Aysha Crews MD [address] [place] [address] documented as of this encounter Visit Diagnoses Not on filedocumented in this encounter Additional Health Concerns Assessment Noted Time A fall risk assessment has been complete d for the patient 11/11/2024 1:29 PM EDT A Body Mass Index follow-up plan has been documented for the patient 11/11/2024 5:31 PM EDT documented as of this encounter Care Teams Ecommerce Merchandising Manager Relationship Specialty Start Date End Date Inna Serrano APRN [address] [place], [place] [id number] PCP - General 02/19/24 Ángela Millard APRN [address] [place] [address] Nurse Practitioner Neurosurgery 09/17/21 documented as of this encounter
--- OUTSIDE RECORDS SUMMARY | 2025-01-21 14:11 | XMS_ITS | Encounter Summary ---
Author Organization [facility] Address [address] [place] [address] Care Team Providers Care Chair Upholsterer Name Role Phone Ángela Millard ICE SELLER Unavailable [phone] Inna Serrano APRN Primary Care Provider [phone] Encounter Details Date Type Department Care Team (Late st Contact Info) Description 12/19/2024 Orders Only [facility] at [facility] [address] [place] [address] Leslie Suarez DO [address] [facility] [address] [place] [address] High risk medication use (Primary [...] [facility] [address] [place] [address] Leslie Suarez DO [address] [place] [address] 04/08/2025 12:00 PM EST Office Visit [facility] Nephrology, Bone & Mineral Metabolism [address] [facility] [address], [address] [place] [address] David Workman MD [address] [place] [address] 09/30/2025 10:10 AM EDT Appointment [facility] Radiology [address] [place] [address] 09/30/2025 11:30 AM EDT Office Visit [facility] Head[facility] Neck [facility] Respiratory [address] [facility], 2nd [place] [address] Aysha Crews MD [address] [place] [address] documented as of this encounter Visit Diagnoses Diagnosis High risk medication use- Primary documented in this encounter Additional Health Concerns Assessment Noted Time A fall risk assessment has been complete d for the patient 11/11/2024 1:29 PM EDT A Body Mass Index follow-up plan has been documented for the patient 11/11/2024 5:31 PM EDT documented as of this encounter Care Teams Chair Upholsterer Relationship Specialty Start Date End Date Inna Serrano APRN [address] [place] [address] PCP - General 02/19/24 Ángela Millard APRN [address] [place] [address] Nurse Practitioner Neurosurgery 09/17/21 documented as of this encounter
--- OUTSIDE RECORDS SUMMARY | 2025-01-21 14:11 | XMS_ITS | Encounter Summary ---
Author Organization [facility] Address [address] [place] [address] Care Team Providers Care Trial Examiner Name Role Phone Ángela Millard ROOFER Unavailable [phone] Inna Serrano ROOFER Primary Care Provider [phone] Reason for Visit * Reason Onset Date Comments HCN - Patient Message 10/31/2024 HCN Status Update Call #1 10/31/2024 Encounter Details Date Type Department Care Team (Late st Contact Info) Description 10/31/2024 Telephone [facility] [address] [address] Leslie Suarez DO [address] [facility] [address] [place] [address] HCN - Patient Message; HCN [...] appt [facility] heart scan [facility]. * Telephone Encounter - Nikki Garg - 11/05/2024 8:37 AM EDT Status Update Call #2 2nd call regarding the status of the initial request. Best contact number: [phone] (mobile) Optimal time of day to reach [...] Reason for Call: Patient calling stating his edge beader is referring him to vascular surgery because he has severe leg swelling and was told he has blockages . He said he wants Dr. Morrison to know this. Best contact number: [phone] (mobile) Optimal time of day to reach [...] [facility] [address] [place] [address] Leslie Suarez DO [address] [place] [address] 04/08/2025 12:00 PM EST Office Visit [facility] Nephrology, Bone & Mineral Metabolism [address] [facility], [address] [place] [address] David Workman MD [address] [place] [address] 09/30/2025 10:10 AM EDT Appointment [facility] Radiology [address] [place] [address] 09/30/2025 11:30 AM EDT Office Visit [facility] Head[facility] Neck [facility] Respiratory [address] [facility], 2nd [place] [address] Aysha Crews MD [address] [place] [address] documented as of this encounter Visit Diagnoses Not on filedocumented in this encounter Additional Health Concerns Assessment Noted Time A fall risk assessment has been complete d for the patient 09/24/2024 10:19 AM EDT A Body Mass Index follow-up plan has been documented for the patient 09/24/2024 12:24 PM EDT documented as of this encounter Care Teams Trial Examiner Relationship Specialty Start Date End Date Inna Serrano APRN [address] [place] [address] PCP - General 02/19/24 Ángela Millard APRN [address] [place] [address] Nurse Practitioner Neurosurgery 09/17/21 documented as of this encounter
--- OUTSIDE RECORDS SUMMARY | 2025-01-21 14:11 | XMS_ITS | Encounter Summary ---
Author Organization [facility] Address [address] [place] [place] [id number] Care Team Providers Care Returned Goods Receiving Clerk Name Role Phone Ángela Millard Ev DIRECTOR BLOOD BANK Unavailable [phone] Inna Serrano APRN Primary Care Provider [phone] Reason for Visit * Reason Onset Date Comments HCN - Patient Message 01/09/2025 Encounter Details Date Type Department Care Team ([facility] st Contact Info) Description 01/09/2025 Telephone [facility] Nephrology, Bone & Mineral Metabolism [address] [facility], [address] [place] [address] David Workman MD [address] [place] [address] HCN - Patient Message Social History Tobacco [...] * Telephone Encounter - Celina Arce - 01/13/2025 2:55 PM EDT Renal ultrasound order faxed to [facility] [phone] * Telephone Encounter - Celina Arce - 01/10/2025 11:22 AM EDT Secure chat sent to the provider, Dr. Workman * Telephone Encounter - Neyda Guzman - 01/10/2025 8:04 AM EDT Status Update Call #1 1st call regarding the status of the initial request. Best contact number: [phone] (mobile) Optimal time of day to reach caller: ANYTIME Additional comments/information from caller: Asking for call back about labs and states no Rx was or has been sent Note: Please do not reply to this message. Follow-up communication and further actions as a result of this message need to be communicated with the patient directly, if the patient is not active onMyChart. If the patient is active on MyChart, they will receive notification of the communication/outcome via [employer]. * Telephone Encounter - Radha Cruz LPN - 01/09/2025 4:03 PM EDT Message sent to provider that patient is requesting call to discuss lab results. * Telephone Encounter - Claudia Griffin - 01/09/2025 3:51 PM EDT Pt is calling back regarding his previous msg. * Telephone Encounter - Claudia Griffin - 01/09/2025 12:13 PM EDT Patient Phone Message Reason for Call: Pt is requesting a call to discuss results. Best contact number and optimal time of day to reach caller: [phone] Note: Please do not reply to this [...] [facility] [address] [place] [address] Leslie Suarez DO [address] [facility] [address] [place] [address] 04/08/2025 12:00 PM EST Office Visit [facility]ph[facility] Bone & Mineral Metabolism [address] [facility], [address] [place] [address] David Workman MD [address] [place] [address] 09/30/2025 10:10 AM EDT Appointment [facility] [address] [place] [address] 09/30/2025 11:30 AM EDT Office Visit [facility]ck [facility] Respiratory [address] [facility], 2nd [place] [address] Aysha Crews MD [address] [facility] [address] [place] [address] documented as of this encounter Visit Diagnoses Not on filedocumented in this encounter Additional Health Concerns Assessment Noted Time A fall risk assessment has been complete d for the patient 01/08/2025 1:58 PM EDT A Body Mass Index follow-up plan has been documented for the patient 01/08/2025 3:33 PM EDT documented as of this encounter Care Teams Returned Goods Receiving Clerk Relationship Specialty Start Date End Date Inna Serrano APRN [address] [place] [address] PCP - General 02/19/24 Ángela Millard, BELINDA [address] [place] [address] Nurse Practitioner Neurosurgery 09/17/21 documented as of this encounter
--- OUTSIDE RECORDS SUMMARY | 2025-01-21 14:11 | XMS_ITS | Encounter Summary ---
Author Organization [facility] Address [address] [place] [address] Care Team Providers Care Doctor Of Podiatry Name Role Phone Ángela Millard ORTHOPEDICS TEACHER Unavailable [phone] Inna Serrano APRN Primary Care Provider [phone] Reason for Visit * Reason Onset Date Comments HCN - Patient Message 12/13/2024 Encounter Details Date Type Department Care Team ([facility] st Contact Info) Description 12/13/2024 Telephone [facility] Nephrology, Bone & Mineral Metabolism [address] [facility], [address] [place] [address] None, None [address] [place] [address] HCN - Patient Message Social History Tobacco [...] all 01/08/2025 1:58 PM EDT Gaurav Bauer l B * How difficult have these problems made it for you to do your work, take care of things at home, or get along with other people? Answer Date of Assessment Author Not difficult at all 01/08/2025 1:58 PM EDT Kacey Griffith documented as of this encounter Miscellaneous Notes * Telephone Encounter - Jesi Pope - 12/17/2024 5:15 PM EDT 12/17/24 CALLED PT NO ANSWER * Telephone Encounter - Jesi Pope - 12/17/2024 5:14 PM EDT 12/17/24 CALLED PT MAIL BOX ARE FULL CAN'T LEAVE A MESSAGED * Telephone Encounter - Celina Wolfe - 12/13/2024 12:14 PM EDT Scheduled December * Telephone Encounter - Rebecca Zavaleta - 12/13/2024 11:41 AM EDT Clinical Concern/Question Reason for Call: RETAIL MARKETING COORDINATOR calling to schedule appointment from referral placed. Diagnosis not showing on DT. Best contact number: [phone] (mobile) Optimal time of day to reach caller: ANYTIME Additional comments/information from caller: Note: Please do [...] Upcoming Encounters Date Type Department Care Team ([facility] st Contact Info) Description 02/12/2025 3:00 PM EDT Office Visit [facility] [address] [place] [address] Leslie Suarez DO [address] [facility] [place] [address] [place] [address] 04/08/2025 12:00 PM EST Office Visit [facility] Nephrology, Bone & Mineral Metabolism [address] [facility], [address] [place] [address] David Workman MD [address] [place] [address] 09/30/2025 10:10 AM EDT Appointment [facility] [address] [place] [address] 09/30/2025 11:30 AM EDT Office Visit [facility] Head[facility] Neck [facility] Respiratory [address] [facility], 2nd [place] [address] Aysha Crews MD [address] [facility] [address] [place] [address] documented as of this encounter Visit Diagnoses Not on filedocumented in this encounter Additional Health Concerns Assessment Noted Time A fall risk assessment has been complete d for the patient 11/11/2024 1:29 PM EDT A Body Mass Index follow-up plan has been documented for the patient 11/11/2024 5:31 PM EDT documented as of this encounter Care Teams Doctor Of Podiatry Relationship Specialty Start Date End Date Inna Serrano APRN [address] [place] [address] PCP - General 02/19/24 Ángela Millard APRN [address] [place] [address] Nurse Practitioner Neurosurgery 09/17/21 documented as of this encounter
--- OUTSIDE RECORDS SUMMARY | 2025-01-21 14:11 | XMS_ITS | Encounter Summary ---
Author Organization [facility] Address [address] [place] [address] Care Team Providers Care Ladle Operator Name Role Phone Antwan Esparza MD Primary Care Provider [phone] Ángela Millard CHROME WORKER Unavailable [phone] Inna Serrano APRN Primary Care Provider [phone] Encounter Details Date Type Department Care Team (Late st Contact Info) Description 10/06/2023 Orders Only External Location [address] [place] [address] Provider, External Social History Tobacco Use Types [...] [facility] [address] [place] [address] Leslie Suarez DO [address] [place] [address] 04/08/2025 12:00 PM EST Office Visit [facility] Nephrology, Bone & Mineral Metabolism [address], [address] [place] [address] David Workman MD [address] [place] [address] 09/30/2025 10:10 AM EDT Appointment [facility] Radiology [address] [place] [address] 09/30/2025 11:30 AM EDT Office Visit [facility] Head[facility] Neck [facility] Respiratory [address] [facility], 2nd [place] [address] Aysha Crews MD [address] [place] [address] documented as of this encounter [...] documented as of this encounter Care Teams Ladle Operator Relationship Specialty Start Date End Date Antwan Esparza MD [address] [place] [address] PCP - General 12/14/20 02/18/24 Inna Serrano APRN [address] [place] [address] PCP - General 02/19/24 Ángela Millard APRN [address] [facility] [place] [address] Nurse Practitioner Neurosurgery 09/17/21 documented as of this encounter
--- OUTSIDE RECORDS SUMMARY | 2025-01-21 14:11 | XMS_ITS | Encounter Summary ---
Author Organization [facility] Address [address] [place] [address] Care Team Providers Care Senior Developer Name Role Phone Ángela Millard Ev TURNAROUND PLANNER Unavailable [phone] Inna Serrano APRN Primary Care Provider [phone] Reason for Visit * Reason Onset Date Comments HCN Clinical Concern/Question 12/19/2024 Encounter Details Date Type Department Care Team ([facility] st Contact Info) Description 12/19/2024 Telephone [facility] Nephrology, Bone & Mineral Metabolism [address] [facility], [address] [place] [address] David Workman MD [address] [place] [address] HCN Clinical Concern/Question Social History Tobacco Use [...] encounter Miscellaneous Notes * Telephone Encounter - Tammy Mata - 12/19/2024 8:27 AM EDT Clinical Concern/Question Reason for Call: Patient asking if it is okay for him to have a stress test. Best contact number: [phone] (mobile) Optimal time of day to reach caller: ANYTIME Additional comments/information from caller: None Note: Please do not reply to this message. Follow-up communication and further actions as a result of this message need to be communicated with the patient directly, if the patient is not active onMyChart. If the patient is active on MyChart, they will receive notification of the communication/outcome via [employer]. documented in this encounter Plan of Treatment Upcoming Encounters Date Type Department Care Team ([facility] st Contact Info) Description 02/12/2025 3:00 PM EDT Office Visit [facility] at [facility] [address] [place] [address] Leslie Suarez DO [address] [facility] [address] [place] [address] 04/08/2025 12:00 PM EST Office Visit [facility] Nephrology, Bone & Mineral Metabolism [address] [facility], [address] [place] [address] David Workman MD [address] [place] [address] 09/30/2025 10:10 AM EDT Appointment [facility] Radiology [address] [place] [address] 09/30/2025 11:30 AM EDT Office Visit [facility] Head[facility] Neck & Respiratory [address] [facility], 2nd [place] [address] Aysha Crews MD [address] [facility] [address] [place] [address] documented as of this encounter Visit Diagnoses Not on filedocumented in this encounter Additional Health Concerns Assessment Noted Time A fall risk assessment has been complete d for the patient 11/11/2024 1:29 PM EDT A Body Mass Index follow-up plan has been documented for the patient 11/11/2024 5:31 PM EDT documented as of this encounter Care Teams Senior Developer Relationship Specialty Start Date End Date Inna Serrano APRN [address] [place] [address] PCP - General 02/19/24 Ángela Millard APRN [address] [place] [address] Nurse Practitioner Neurosurgery 09/17/21 documented as of this encounter
--- OUTSIDE RECORDS SUMMARY | 2025-01-21 14:11 | XMS_ITS | Encounter Summary ---
Author Organization [facility] Address [address] [place] [address] Care Team Providers Care Medical Staff Assistant Name Role Phone Ángela Millard NEW ACCOUNT INTERVIEWER Unavailable [phone] Inna Serrano APRN Primary Care Provider [phone] Encounter Details Date Type Department Care Team (Latest Contact Info) Description 01/01/2025 Travel Social History Tobacco Use Types Packs/Day [...] Visit Physical Medicine & Rehabilitation Clinic at [facility] [address] [place] [address] Leslie Suarez DO [address] [place] [address] 04/08/2025 12:00 PM EST Office Visit [facility] Nephrology, Bone & Mineral Metabolism [address] [facility], [address] [place] [address] David Workman MD [address] [place] [address] 09/30/2025 10:10 AM EDT Appointment [facility] [address] [place] [address] 09/30/2025 11:30 AM EDT Office Visit [facility]ck [facility] Respiratory [address] [facility], 2nd [place] [address] Aysha Crews MD [address] [facility] [address] [place] [address] documented as of this encounter Visit Diagnoses Not on filedocumented in this encounter Additional Health Concerns Assessment Noted Time A fall risk assessment has been complete d for the patient 11/11/2024 1:29 PM EDT A Body Mass Index follow-up plan has been documented for the patient 11/11/2024 5:31 PM EDT documented as of this encounter Care Teams Medical Staff Assistant Relationship Specialty Start Date End Date Inna Serrano APRN [address] [place] [address] PCP - General 02/19/24 Ángela Millard APRN [address] [place] [address] Nurse Practitioner Neurosurgery 09/17/21 documented as of this encounter
--- OUTSIDE RECORDS SUMMARY | 2025-01-21 14:11 | XMS_ITS | Encounter Summary ---
Author Organization [facility] Address [address] [place] [address] Care Team Providers Care Collar Starcher Name Role Phone Antwan Esparza MD Primary Care Provider [phone] Ángela Millard PROFESSOR OF LAW Unavailable [phone] Inna Serrano APRN Primary Care Provider + [phone] Encounter Details Date Type Department Care Team (Late st Contact Info) Description 10/06/2023 Orders Only External Location [address] [place] [address] Provider, External Social History Tobacco Use Types [...] & Rehabilitation Clinic at [facility] [address] [place] [address] Leslie Suarez DO [address] [place] [address] 04/08/2025 12:00 PM EST Office Visit [facility] Nephrology, Bone & Mineral Metabolism [address], [address] [place] [address] David Workman MD [address] [place] [address] 09/30/2025 10:10 AM EDT Appointment [facility] [address] [place] [address] 09/30/2025 11:30 AM EDT Office Visit [facility] Head[facility] Neck [facility] Respiratory [address] [facility], 2nd [place] [address] Aysha Crews MD [address] [place] [address] documented as of this encounter [...] documented as of this encounter Care Teams Collar Starcher Relationship Specialty Start Date End Date Antwan Esparza MD [address] [place] [address] PCP - General 12/14/20 02/18/24 Inna Serrano APRN [address] [place] [address] PCP - General 02/19/24 Ángela Millard APRN [address] [address] Nurse Practitioner Neurosurgery 09/17/21 documented as of this encounter
--- OUTSIDE RECORDS SUMMARY | 2025-01-21 14:11 | XMS_ITS | Encounter Summary ---
Author Organization Healthcare Address [address] [place] [address] Care Team Providers Care Fastener Sewing Machine Operator Name Role Phone Ángela Millard LEAD COOK Unavailable [phone] Inna Serrano APRN Primary Care Provider [phone] Reason for Visit * Reason Onset Date Comments HCN Status Update Call #1 10/21/2024 Encounter Details Date Type Department Care Team (Late st Contact Info) Description 10/21/2024 Telephone Physical Medicine & Rehabilitation Clinic at [facility] [address] [place] [address] Leslie Suarez DO [address] [facility] [place] [address] HCN Status Update Call #1 [...] swollen. * Telephone Encounter - Malena Edmond Ekaetrina - 10/21/2024 10:35 AM EDT Status Update Call #1 1st call regarding the status of the initial request. Best contact number: [phone] (mobile) Optimal time of day to reach [...] after his appt today. Best contact number: [phone] (mobile) Optimal time of day to reach [...] Physical Medicine & [facility] at [facility] [address] [place] [address] Leslie Suarez DO [address] [facility] [address] [place] [address] 04/08/2025 12:00 PM EST Office Visit Professional [facility] Nephrology, Bone & Mineral Metabolism [address] [facility], [address] [place] [address] David Workman MD [address] [place] [address] 09/30/2025 10:10 AM EDT Appointment [facility] Radiology [address] [place] [address] 09/30/2025 11:30 AM EDT Office Visit [facility] Respiratory [address], 2nd [place] [address] Aysha Crews MD [address] [place] [address] documented as of this encounter Visit Diagnoses Not on filedocumented in this encounter Additional Health Concerns Assessment Noted Time A fall risk assessment has been complete d for the patient 09/24/2024 10:19 AM EDT A Body Mass Index follow-up plan has been documented for the patient 09/24/2024 12:24 PM EDT documented as of this encounter Care Teams Fastener Sewing Machine Operator Relationship Specialty Start Date End Date Inna Serrano APRN [address] [place] [address] PCP - General 02/19/24 Ángela Millard APRN [address] [place] [address] Nurse Practitioner Neurosurgery 09/17/21 documented as of this encounter
--- OUTSIDE RECORDS SUMMARY | 2025-01-21 14:11 | XMS_ITS | Encounter Summary ---
Author Organization [facility] Address [address] [place] [address] Care Team Providers Care Convalescent Sitter Name Role Phone Ángela Millard MEDICAL TECHNOLOGIST CHEMISTRY Unavailable [phone] Inna Serrano MEDICAL TECHNOLOGIST CHEMISTRY Primary Care Provider [phone] Reason for Visit * Reason Comments Med Refill Encounter Details Date Type Department Care Team (Late st Contact Info) Description 12/13/2024 Refill Physical Medicine & Rehabilitation Clinic at [facility] [address] [place] [address] Leslie Suarez DO [address] [facility] [address] [place] [address] Social History Tobacco Use Types Packs/Day Years [...] encounter Miscellaneous Notes * Telephone Encounter - Kaykay Orellana - 12/13/2024 3:16 PM EDT F/u 02/12/25 documented in this encounter Plan of Treatment Upcoming Encounters Date Type Department Care Team (Late st Contact Info) Description 02/12/2025 3:00 PM EDT Office Visit [facility] Rehabilitation [facility] at [facility] [address] [place] [address] Leslie Suarez DO [address] [place] [address] 04/08/2025 12:00 PM EST Office Visit [facility] Nephrology, Bone & Mineral Metabolism [address] [facility], [address] [place] [address] David Workman MD [address] [place] [address] 09/30/2025 10:10 AM EDT Appointment [facility] Radiology [address] [place] [address] 09/30/2025 11:30 AM EDT Office Visit [facility] Head[facility] Neck & Respiratory [address] [facility], 2nd [place] [address] Aysha Crews MD [address] [facility] [address] [place] [address] documented as of this encounter Visit Diagnoses Not on filedocumented in this encounter Additional Health Concerns Assessment Noted Time A fall risk assessment has been complete d for the patient 11/11/2024 1:29 PM EDT A Body Mass Index follow-up plan has been documented for the patient 11/11/2024 5:31 PM EDT documented as of this encounter Care Teams Convalescent Sitter Relationship Specialty Start Date End Date Inna Serrano APRN [address] [place] [address] PCP - General 02/19/24 Ángela Millard APRN [address] [address] Nurse Practitioner Neurosurgery 09/17/21 documented as of this encounter
--- OUTSIDE RECORDS SUMMARY | 2025-01-21 14:11 | XMS_ITS | Encounter Summary ---
Author Organization Healthcare Address [address] [place] [address] Care Team Providers Care Card Cutter Name Role Phone Ángela Millard INSURANCE COMPLIANCE ANALYST Unavailable [phone] Inna Serrano APRN Primary Care Provider [phone] Reason for Visit * Reason Onset Date Comments HCN - Patient Message 12/09/2024 Encounter Details Date Type Department Care Team (Late st Contact Info) Description 12/09/2024 Telephone Physical Medicine & Rehabilitation Clinic at [facility] [address] [place] [address] Leslie Suarez DO [address] [facility] [address] [place] [address] HCN - Patient Message Social [...] encounter Miscellaneous Notes * Telephone Encounter - Sally Caputo - 12/09/2024 3:52 PM EDT Clinical Concern/Question Reason for Call: Prince pt. Pt went to his kidney dr today. His level is 1.[address] discussed putting him on dialysis for for a short time to get the excess fluid out of his body. He is also going to do a biopsy on his kidneys in Dec. Pt just wanted to update Dr Morrison about what is going on. Best contact number: [phone] (mobile) Optimal time of day to reach caller: ANYTIME Additional comments/information from caller: None Note: Please do not reply to this message. Follow-up communication and further actions as a result of this message need to be communicated with the patient directly, if the patient is not active onMyChart. If the patient is active on MyChart, they will receive notification of the communication/outcome via MAZ[employer]. documented in this encounter Plan of Treatment Upcoming Encounters Date Type Department Care Team (Late st Contact Info) Description 02/12/2025 3:00 PM EDT Office Visit [facility] at [facility] [address] [place] [address] Leslie Suarez DO [address] [place] [address] 04/08/2025 12:00 PM EST Office Visit Professional [facility] Nephrology, Bone & Mineral Metabolism [address] [facility], [address] [place] [address] David Workman MD [address] [place] [address] 09/30/2025 10:10 AM EDT Appointment [facility] Radiology [address] [place] [address] 09/30/2025 11:30 AM EDT Office Visit [facility] Head[facility] Neck [facility] Respiratory [address] [facility], 2nd [place] [address] Aysha Crews MD [address] [place] [address] documented as of this encounter Visit Diagnoses Not on filedocumented in this encounter Additional Health Concerns Assessment Noted Time A fall risk assessment has been complete d for the patient 11/11/2024 1:29 PM EDT A Body Mass Index follow-up plan has been documented for the patient 11/11/2024 5:31 PM EDT documented as of this encounter Care Teams Card Cutter Relationship Specialty Start Date End Date Inna Serrano APRN [address] [place], [place] [id number] PCP - General 02/19/24 Ángela Millard APRN [address] [place] [address] Nurse Practitioner Neurosurgery 09/17/21 documented as of this encounter
--- OUTSIDE RECORDS SUMMARY | 2025-01-21 14:11 | XMS_ITS | Encounter Summary ---
Author Organization Healthcare Address [address] [place] [address] Care Team Providers Care Home Coordinator Name Role Phone Delmer Fritz MD Primary Care Provider [phone] Antwan Esparza MD Primary Care Provider [phone] Ángela Millard RF MANAGER Unavailable [phone] Inna Serrano APRN Primary Care Provider + [phone] Encounter Details Date Type Department Care Team (Late st Contact Info) Description 09/01/2020 Orders Only External Location [address] [place] [address] Provider, External Social History Tobacco Use Types [...] [facility] at [facility] [address] [place] [address] Leslie Suarez DO [address] [place] [address] 04/08/2025 12:00 PM EST Office Visit Professional [facility] Nephrology, Bone & Mineral Metabolism [address], [address] [place] [address] David Workman MD [address] [place] [address] 09/30/2025 10:10 AM EDT Appointment [facility] Radiology [address] [place] [address] 09/30/2025 11:30 AM EDT Office Visit [facility] Head[facility] Neck & Respiratory [address] [facility], 2nd [place] [address] Aysha Crews MD [address] [place] [address] documented as of this encounter Procedures Procedure [...] on filedocumented in this encounter Care Teams Home Coordinator Relationship Specialty Start Date End Date Delmer Fritz MD [address] [facility] [address] [place] [address] PCP - General 10/02/20 12/13/20 Antwan Esparza MD [address] [place] [address] PCP - General 12/14/20 02/18/24 Inna Serrano APRN [address] [place] [address] PCP - General 02/19/24 Ángela Millard APRN [address] [place] [address] Nurse Practitioner Neurosurgery 09/17/21 documented as of this encounter
--- OUTSIDE RECORDS SUMMARY | 2025-01-21 14:11 | XMS_ITS | Encounter Summary ---
Author Organization [facility] Address [address] [place] [address] Care Team Providers Care Business Development Associate Name Role Phone Ángela Millard PRODUCT SAFETY TEST ENGINEER Unavailable [phone] Inna Serrano APRN Primary Care Provider [phone] Reason for Visit * Reason Onset Date Comments HCN Clinical Concern/Question 10/22/2024 Encounter Details Date Type Department Care Team (Late st Contact Info) Description 10/22/2024 Telephone Physical Medicine & Rehabilitation Clinic at [facility] [address] [facility] [place] [address] Leslie Suarez DO [address] [facility] [address] [place] [address] HCN Clinical Concern/Question Social History [...] recommended for him to go see his lead tank mechanic for Xray's and for a possible inpatient. * Telephone Encounter - Leta Fraser - 10/22/2024 8:52 AM EDT Clinical Concern/Question Reason for Call: patient is requesting a call back from Dr. Morrison nurse regarding hi recent ER visit Best contact number: [phone] (mobile) Optimal time of day to reach caller: ANYTIME Additional comments/information from caller: None Note: Please do not reply to this message. Follow-up communication and further actions as a result of this message need to be communicated with the patient directly, if the patient is not active onMyChart. If the patient is active on MyChart, they will receive notification of the communication/outcome via Streem[employer]. documented in this encounter Plan of Treatment Upcoming Encounters Date Type Department Care Team ([facility] st Contact Info) Description 02/12/2025 3:00 PM EDT Office Visit [facility] at [facility] [address] [place] [address] Leslie Suarez DO [address] [facility] [address] [place] [address] 04/08/2025 12:00 PM EST Office Visit [facility] Nephrology, Bone & Mineral Metabolism [address] [facility], [address] [place] [address] David Workman MD [address] [place] [address] 09/30/2025 10:10 AM EDT Appointment [facility] Radiology [address] [place] [address] 09/30/2025 11:30 AM EDT Office Visit [facility] Head, Neck & Respiratory [address] [facility], 2nd [place] [address] Aysha Cerws MD [address] [facility] [address] [place] [address] documented as of this encounter Visit Diagnoses Not on filedocumented in this encounter Additional Health Concerns Assessment Noted Time A fall risk assessment has been complete d for the patient 09/24/2024 10:19 AM EDT A Body Mass Index follow-up plan has been documented for the patient 09/24/2024 12:24 PM EDT documented as of this encounter Care Teams Business Development Associate Relationship Specialty Start Date End Date Inna Serrano APRN [address] [place] [address] PCP - General 02/19/24 Ángela Millard APRN [address] [place] [address] Nurse Practitioner Neurosurgery 09/17/21 documented as of this encounter
--- OUTSIDE RECORDS SUMMARY | 2025-01-21 14:11 | XMS_ITS | Encounter Summary ---
Author Organization [facility] Address [address] [place] [address] Care Team Providers Care Airframe Design Engineer Name Role Phone Ángela Millard PCAT INSTRUCTOR Unavailable [phone] Inna Serrano APRN Primary Care Provider [phone] Reason for Visit * Reason Onset Date Comments HCN - Patient Message 12/19/2024 Encounter Details Date Type Department Care Team (Late st Contact Info) Description 12/19/2024 Telephone Physical Medicine & Rehabilitation Clinic at [facility] [address] [facility] [place] [address] Leslie Suarez DO [address] [facility] [address] [place] [address] HCN - Patient Message Social [...] Telephone Encounter - Leslie Suarez DO - 12/23/2024 10:30 AM EDT Ok thank you for update. Did he get his UDS done, if so please call for the results. Thanks. * Telephone Encounter - Carissa Fried - 12/23/2024 9:58 AM EDT Status Update Call #2 2nd call regarding the status of the initial request. Patient called back stating his appt with hisurologist was moved to 01/08. He said he requested a male physician. He just wanted to make Dr. Morrison aware of the new appt date/time. Best contact number: [phone] (mobile) Optimal time of day to reach caller: ANYTIME Additional comments/information from caller: None. Note: Please do not reply to this message. Follow-up communication and further actions as a result of this message need to be communicated with the patient directly, if the patient is not active onMyChart. If the patient is active on MyChart, they will receive notification of the communication/outcome via MyChart. * Telephone Encounter - Poly Squires - 12/19/2024 10:49 AM EDT Spoke with clinic they said it's [facility] no need to fax order * Telephone Encounter - Leslie Suarez DO - 12/19/2024 10:20 AM EDT Order placed thanks. Please fax to external lab * Telephone Encounter - Poly Squires - 12/19/2024 10:17 AM EDT UDS * Telephone Encounter - Leslie Suarez DO - 12/19/2024 9:46 AM EDT Ua or UDS? * Telephone Encounter - Poly Squires - 12/19/2024 9:31 AM EDT Spoke with pt he would like a urinalysis order put in so that he can do it at good same he has an appt with his kidney Doctor. * Telephone Encounter - Omkar Thurman - 12/19/2024 8:32 AM EDT Clinical Concern/Question Reason for Call: Dr. Adonis Morrison pt is requesting a call back from clinical staff re: urinalysis order. Best contact number: [phone] (mobile) Optimal time of day to reach [...] Rehabilitation Clinic at [facility] [address] [place] [address] Leslie Suarez DO [address] [place] [address] 04/08/2025 12:00 PM EST Office Visit Professional [facility] Nephrology, Bone & Mineral Metabolism [address] [facility], [address] [place] [address] David Workman MD [address] [place] [address] 09/30/2025 10:10 AM EDT Appointment [facility] Radiology [address] [place] [address] 09/30/2025 11:30 AM EDT Office Visit [facility] Head, Neck & Respiratory [address] [facility], 2nd [place] [address] Aysha Crews MD [address] [facility] [address] [place] [address] documented as of this encounter Visit Diagnoses Not on filedocumented in this encounter Additional Health Concerns Assessment Noted Time A fall risk assessment has been complete d for the patient 11/11/2024 1:29 PM EDT A Body Mass Index follow-up plan has been documented for the patient 11/11/2024 5:31 PM EDT documented as of this encounter Care Teams Airframe Design Engineer Relationship Specialty Start Date End Date Inna Serrano APRN [address] [place] [address] PCP - General 02/19/24 Ángela Millard APRN [address] [place] [address] Nurse Practitioner Neurosurgery 09/17/21 documented as of this encounter
--- OUTSIDE RECORDS SUMMARY | 2025-01-21 14:11 | XMS_ITS | Encounter Summary ---
Author Organization Healthcare Address [address] [place] [address] Care Team Providers Care Project Lead Name Role Phone Ángela Millard BELINDA Unavailable [phone] Inna Serrano APRN Primary Care Provider [phone] Reason for Visit * Reason Onset Date Comments Med Refill 12/13/2024 Encounter Details Date Type Department Care Team (Late st Contact Info) Description 12/13/2024 Refill Physical Medicine & Rehabilitation Clinic at [facility] [address] [facility] [place] [address] Leslie Suarez DO [address] [facility] [address] [place] [address] Social History Tobacco Use Types [...] Telephone Encounter - Leslie Suarez DO - 12/13/2024 8:34 PM EDT duplicate * Telephone Encounter - Harshal, Sally S - 12/13/2024 2:19 PM EDT Status Update Call #1 1st call regarding the status of the initial request. Best contact number: [phone] (mobile) Optimal time of day to reach caller: ANYTIME Additional comments/information from caller: None Note: Please do not reply to this message. Follow-up communication and further actions as a result of this message need to be communicated with the patient directly, if the patient is not active onMyChart. If the patient is active on MyChart, they will receive notification of the communication/outcome via [employer]. documented in this encounter Plan of Treatment Upcoming Encounters Date Type Department Care Team (Late st Contact Info) Description 02/12/2025 3:00 PM EDT Office Visit [facility] at [facility] [address] [place] [address] Leslie Suarez DO [address] [place] [address] 04/08/2025 12:00 PM EST Office Visit Professional [facility] Nephrology, Bone & Mineral Metabolism [address] [facility], [address] [place] [address] David Workman MD [address] [place] [address] 09/30/2025 10:10 AM EDT Appointment [facility] Radiology [address] [place] [address] 09/30/2025 11:30 AM EDT Office Visit [facility] Head[facility] Neck & Respiratory [address] [facility], 2nd [place] [address] Aysha Crews MD [address] [place] [address] documented as of this encounter Visit Diagnoses Not on filedocumented in this encounter Additional Health Concerns Assessment Noted Time A fall risk assessment has been complete d for the patient 11/11/2024 1:29 PM EDT A Body Mass Index follow-up plan has been documented for the patient 11/11/2024 5:31 PM EDT documented as of this encounter Care Teams Project Lead Relationship Specialty Start Date End Date Inna Serrano APRN [address] [place], [place] [id number] PCP - General 02/19/24 Ángela Millard APRN [address] [place] [address] Nurse Practitioner Neurosurgery 09/17/21 documented as of this encounter
--- OUTSIDE RECORDS SUMMARY | 2025-01-21 14:12 | XMS_ITS | Encounter Summary ---
Author Organization Healthcare Address [address] [place] [address] Care Team Providers Care Software Test Manager Name Role Phone Antwan Esparza MD Primary Care Provider [phone] Ángela Millard LABELS MOLDER Unavailable [phone] Inna Serrano APRN Primary Care Provider + [phone] Encounter Details Date Type Department Care Team (Late Contact Info) Description 02/01/2021 Orders Only External Location [address] [place] [address] Provider, External Social History Tobacco Use Types [...] Visit Physical Medicine & Rehabilitation Clinic at [facility] [address] [place] [address] Leslie Suarez DO [address] [place] [address] 04/08/2025 12:00 PM EST Office Visit [facility] Nephrology, Bone & Mineral Metabolism [address] [facility], [address] [place] [address] David Workman MD [address] [place] [address] 09/30/2025 10:10 AM EDT Appointment [facility] Radiology [address] [place] [address] 09/30/2025 11:30 AM EDT Office Visit [facility] Head, Neck & Respiratory [address] [facility], 2nd [place] [address] Aysha Cerws MD [address] [place] [address] documented as of this encounter [...] documented as of this encounter Care Teams Software Test Manager Relationship Specialty Start Date End Date Antwan Esparza MD [address] [place] [address] PCP - General 12/14/20 02/18/24 Inna Serrano APRN [facility] [place] [address] PCP - General 02/19/24 Ángela Millard APRN [address] [place] [address] Nurse Practitioner Neurosurgery 09/17/21 documented as of this encounter
--- OUTSIDE RECORDS SUMMARY | 2025-01-21 14:12 | XMS_ITS | Encounter Summary ---
Author Organization Healthcare Address [address] [place] [address] Care Team Providers Care High Pressure Kettle Operator Name Role Phone Antwan Esparza MD Primary Care Provider + [phone] Ángela Millard CUTLET MAKER PORK Unavailable [phone] Inna Serrano APRN Primary Care Provider + [phone] Encounter Details Date Type Department Care Team (Late Contact Info) Description 02/01/2021 Orders Only External Location [address] [place] [address] Provider, External Social History Tobacco Use Types [...] Visit Physical Medicine & Rehabilitation Clinic at [facility] [address] [place] [address] Leslie Suarez DO [address] [place] [address] 04/08/2025 12:00 PM EST Office Visit [facility] Nephrology, Bone & Mineral Metabolism [address] [facility], [address] [place] [address] David Workman MD [address] [place] [address] 09/30/2025 10:10 AM EDT Appointment [facility] Radiology [address] [place] [address] 09/30/2025 11:30 AM EDT Office Visit [facility] Head[facility] Neck & Respiratory [address] [facility], 2nd [place] [address] Aysha Crews MD [address] [place] [address] documented as of this encounter [...] documented as of this encounter Care Teams High Pressure Kettle Operator Relationship Specialty Start Date End Date Antwan Esparza MD [address] [place], [place] [id number] PCP - General 12/14/20 02/18/24 Inna Serrano APRN [address] [place] [address] PCP - General 02/19/24 Ángela Millard APRN [address] [place] [address] Nurse Practitioner Neurosurgery 09/17/21 documented as of this encounter
--- OUTSIDE RECORDS SUMMARY | 2025-01-21 14:12 | XMS_ITS | Encounter Summary ---
Author Organization Healthcare Address [address] [place] [address] Care Team Providers Care Senior Grants Officer Name Role Phone Delmer Fritz MD Primary Care Provider [phone] Antwan Esparza MD Primary Care Provider + [phone] Ángela Millard HEAD SCHOOL CUSTODIAN Unavailable +[phone] Inna Serrano APRN Primary Care Provider + [phone] Encounter Details Date Type Department Care Team (Late st Contact Info) Description 05/13/2020 Orders Only External Location [address] [place] [address] Provider, External Social History Tobacco Use Types [...] [facility] [address] [address] Leslie Suarez DO [address] [place] [address] 04/08/2025 12:00 PM EST Office Visit [facility] Nephrology, Bone & Mineral Metabolism [address] [facility], [address] [place] [address] David Workman MD [address] [place] [address] 09/30/2025 10:10 AM EDT Appointment [facility] G Radiology [address] [place] [address] 09/30/2025 11:30 AM EDT Office Visit [facility] Head, Neck & Respiratory [address] [facility], 2nd [place] [address] Aysha Crews MD [address] [facility] [address] [place] [address] documented as of this encounter [...] on filedocumented in this encounter Care Teams Senior Grants Officer Relationship Specialty Start Date End Date Delmer Fritz MD [address] [place] [address] [address] [place] [address] PCP - General 10/02/20 12/13/20 Antwan Esparza MD [address] [place] [address] PCP - General 12/14/20 02/18/24 Inna Serrano APRN [address] [place] [address] PCP - General 02/19/24 Ángela Millard APRN [address] [place] [address] Nurse Practitioner Neurosurgery 09/17/21 documented as of this encounter
--- OUTSIDE RECORDS SUMMARY | 2025-01-21 14:12 | XMS_ITS | Encounter Summary ---
Author Organization Healthcare Address [address] [place] [address] Care Team Providers Care Ultrasound Tester Name Role Phone Ángela Millard STEREOTYPER Unavailable [phone] Inna Serrano APRN Primary Care Provider [phone] Reason for Visit * Reason Onset Date Comments HCN - Patient Message 01/21/2025 Encounter Details Date Type Department Care Team (Late st Contact Info) Description 01/21/2025 Telephone [facility] at [facility] [address] [place] [address] Leslie Suarez DO [address] [facility] [address] [place] [address] HCN - Patient Message Social [...] * Telephone Encounter - Omkar Thurman - 01/21/2025 8:31 AM EDT Clinical Concern/Question Reason for Call: Dr. Adonis Morrison pt called to inform provider and clinical staff that he is scheduled for renal ultrasound bx at [facility] today. No call back requested. Best contact number: [phone] (mobile) Optimal time of day to reach caller: ANYTIME Additional comments/information from caller: None Note: Please do not reply to this message. Follow-up communication and further actions as a result of this message need to be communicated with the patient directly, if the patient is not active onMyChart. If the patient is active on MyChart, they will receive notification of the communication/outcome via DeskActivehart. documented in this encounter Plan of Treatment Upcoming Encounters Date Type Department Care Team (Late st Contact Info) Description 02/12/2025 3:00 PM EDT Office Visit [facility] [address] [address] Leslie Suarez DO [address] [facility] [address] [place] [address] 04/08/2025 12:00 PM EST Office Visit [facility] Nephrology, Bone & Mineral Metabolism [address] [facility], [address] [place] [address] David Workman MD [address] [place] [address] 09/30/2025 10:10 AM EDT Appointment [facility] G Radiology [address] [place] [address] 09/30/2025 11:30 AM EDT Office Visit [facility] Head, Neck & Respiratory 800 [facility], 2nd [place] [address] Aysha Crews MD [address] [facility] [address] [place] [address] documented as of this encounter Visit Diagnoses Not on filedocumented in this encounter Additional Health Concerns Assessment Noted Time A fall risk assessment has been complete d for the patient 01/08/2025 1:58 PM EDT A Body Mass Index follow-up plan has been documented for the patient 01/08/2025 3:33 PM EDT documented as of this encounter Care Teams Ultrasound Tester Relationship Specialty Start Date End Date Inna Serrano APRN [address] [place] [address] PCP - General 02/19/24 Ángela Millard APRN [address] [place] [address] Nurse Practitioner Neurosurgery 09/17/21 documented as of this encounter
--- OUTSIDE RECORDS SUMMARY | 2025-01-21 14:12 | XMS_ITS | Encounter Summary ---
Author Organization Healthcare Address [address] [place] [address] Care Team Providers Care Shell Freezing Machine Operator Name Role Phone Antwan Esparza MD Primary Care Provider + [phone] Ángela Millard LEARNING AND DEVELOPMENT INTERN Unavailable [phone] Inna Serrano LEARNING AND DEVELOPMENT INTERN Primary Care Provider + [phone] Encounter Details Date Type Department Care Team (Late st Contact Info) Description 01/25/2023 Orders Only External Location [address] [place] [address] Provider, External Social History Tobacco Use Types [...] Visit [facility] [address] [place] [address] Leslie Suarez DO [address] [place] [address] 04/08/2025 12:00 PM EST Office Visit [facility] Nephrology, Bone & Mineral Metabolism [address], [address] [place] [address] David Workman MD [address] [place] [address] 09/30/2025 10:10 AM EDT Appointment P[facility] G Radiology [address] [place] [address] 09/30/2025 11:30 AM EDT Office Visit Pav [facility] Head, Neck & Respiratory 800 [facility], 2nd [place] [address] Aysha Crews MD [address] [place] [address] documented as of this encounter [...] documented as of this encounter Care Teams Shell Freezing Machine Operator Relationship Specialty Start Date End Date Antwan Esparza MD [address] [place] [address] PCP - General 12/14/20 02/18/24 Inna Serrano APRN [facility] [place] [address] PCP - General 02/19/24 Ángela Millard, BELINDA [address] [place] [address] Nurse Practitioner Neurosurgery 09/17/21 documented as of this encounter
--- OUTSIDE RECORDS SUMMARY | 2025-01-21 14:12 | XMS_ITS | Encounter Summary ---
Author Organization Healthcare Address [address] [place] [address] Care Team Providers Care Psychiatric Technician Name Role Phone Delmer Fritz MD Primary Care Provider [phone] Antwan Esparza MD Primary Care Provider + [phone] Ángela Millard PATTERN HANGER Unavailable [phone] Inna Serrano APRN Primary Care Provider + [phone] Encounter Details Date Type Department Care Team (Late st Contact Info) Description 08/27/2018 Orders Only External Location [address] [place] [address] Provider, External Social History Tobacco Use Types [...] [facility] [address] [place] [address] Leslie Suarez DO [address] [place] [address] 04/08/2025 12:00 PM EST Office Visit Professional [facility] Nephrology, Bone & Mineral Metabolism [address] [facility], [address] [place] [address] David Workman MD [address] [place] [address] 09/30/2025 10:10 AM EDT Appointment [facility] G Radiology [address] [place] [address] 09/30/2025 11:30 AM EDT Office Visit [facility] Head, Neck & Respiratory 800 [facility], 2nd [place] [address] Aysha Crews MD [address] [place] [address] documented as of this encounter [...] on filedocumented in this encounter Care Teams Psychiatric Technician Relationship Specialty Start Date End Date Delmer Fritz MD [address] [facility] [address] [place] [address] PCP - General 10/02/20 12/13/20 Antwan Esparza MD [address] [place] [address] PCP - General 12/14/20 02/18/24 Inna Serrano APRN [address] [place] [address] PCP - General 02/19/24 Ángela Millard APRN [address] [place] [address] Nurse Practitioner Neurosurgery 09/17/21 documented as of this encounter
--- OUTSIDE RECORDS SUMMARY | 2025-01-21 14:12 | XMS_ITS | Encounter Summary ---
Author Organization Healthcare Address [address] [place] [address] Care Team Providers Care Entry Level Project Engineer Name Role Phone Delmer Fritz MD Primary Care Provider [phone] Antwan Esparza MD Primary Care Provider + [phone] Ángela Millard BATTERY WRECKER OPERATOR Unavailable [phone] Inna Serrano APRN Primary Care Provider + [phone] Encounter Details Date Type Department Care Team (Late st Contact Info) Description 08/14/2019 Orders Only External Location [address] [place] [address] Provider, External Social History Tobacco Use Types [...] [facility] [address] [place] [address] Leslie Suarez DO [address] [place] [address] 04/08/2025 12:00 PM EST Office Visit [facility] Nephrology, Bone & Mineral Metabolism [address] [facility], [address] [place] [address] David Workman MD [address] [place] [address] 09/30/2025 10:10 AM EDT Appointment [facility] Radiology [address] [place] [address] 09/30/2025 11:30 AM EDT Office Visit [facility] Head, Neck & Respiratory 800 [facility], 2nd [place] [address] Aysha Crews MD [address] [place] [address] documented as of this encounter [...] on filedocumented in this encounter Care Teams Entry Level Project Engineer Relationship Specialty Start Date End Date Delmer Fritz MD [address] [facility] [address] [place] [address] PCP - General 10/02/20 12/13/20 Antwan Esparza MD 9 [place] [address] PCP - General 12/14/20 02/18/24 Inna Serrano APRN [address] [place] [address] PCP - General 02/19/24 Ángela Millard APRN [address] [place] [address] Nurse Practitioner Neurosurgery 09/17/21 documented as of this encounter
--- OUTSIDE RECORDS SUMMARY | 2025-01-21 14:12 | XMS_ITS | Encounter Summary ---
Author Organization Healthcare Address [address] [place] [address] Care Team Providers Care System Operation Superintendent Name Role Phone Delmer Fritz MD Primary Care Provider [phone] Antwan Esparza MD Primary Care Provider + [phone] Ángela Millard BINGO WORKER Unavailable [phone] Inna Serrano APRN Primary Care Provider + [phone] Encounter Details Date Type Department Care Team (Late st Contact Info) Description 02/28/2020 Orders Only External Location [address] [place] [address] Provider, External Social History Tobacco Use Types [...] [facility] [address] [place] [address] Leslie Suarez DO [address] [place] [address] 04/08/2025 12:00 PM EST Office Visit [facility] Nephrology, Bone & Mineral Metabolism [address] [facility], [address] [place] [address] David Workman MD [address] [place] [address] 09/30/2025 10:10 AM EDT Appointment P[facility] G Radiology [address] [place] [address] 09/30/2025 11:30 AM EDT Office Visit Pav CC Head, Neck & Respiratory 800 [facility], 2nd [place] [address] Aysha Crews MD [address] [place] [address] documented as of this encounter [...] on filedocumented in this encounter Care Teams System Operation Superintendent Relationship Specialty Start Date End Date Delmer Fritz MD [address] [facility] [address] [place] [address] PCP - General 10/02/20 12/13/20 Antwan Esparza MD 9 [place] [address] PCP - General 12/14/20 02/18/24 Inna Serrano APRN [address] [place] [address] PCP - General 02/19/24 Ángela Millard APRN [address] [place] [address] Nurse Practitioner Neurosurgery 09/17/21 documented as of this encounter
--- OUTSIDE RECORDS SUMMARY | 2025-01-21 14:12 | XMS_ITS | Encounter Summary ---
Author Organization Healthcare Address [address] [place] [address] Care Team Providers Care Finance Insurance Manager Name Role Phone Ángela Millard DISC RULER OPERATOR Unavailable [phone] Inna Serrano APRN Primary Care Provider [phone] Encounter Details Date Type Department Care Team (Latest Contact Info) Description 12/19/2024 Travel Social History Tobacco Use Types Packs/Day [...] Visit [facility] at [facility] [address] [place] [address] Leslie Suarez DO [address] [place] [address] 04/08/2025 12:00 PM EST Office Visit [facility] Nephrology, Bone & Mineral Metabolism [address] [facility], [address] [place] [address] David Workman MD [address] [place] [address] 09/30/2025 10:10 AM EDT Appointment [facility] G Radiology [address] [place] [address] 09/30/2025 11:30 AM EDT Office Visit [facility] Head, Neck & Respiratory 800 [facility], 2nd [place] [address] Aysha Crews MD [address] [facility] [address] [place] [address] documented as of this encounter Visit Diagnoses Not on filedocumented in this encounter Additional Health Concerns Assessment Noted Time A fall risk assessment has been complete d for the patient 11/11/2024 1:29 PM EDT A Body Mass Index follow-up plan has been documented for the patient 11/11/2024 5:31 PM EDT documented as of this encounter Care Teams Finance Insurance Manager Relationship Specialty Start Date End Date Inna Serrano APRN [address] [place] [address] PCP - General 02/19/24 Ángela Millard APRN [address] [place] [address] Nurse Practitioner Neurosurgery 09/17/21 documented as of this encounter
--- OUTSIDE RECORDS SUMMARY | 2025-01-21 14:12 | XMS_ITS | Encounter Summary ---
Author Organization Healthcare Address [address] [place] [address] Care Team Providers Care Hydrocrane Operator Name Role Phone Ángela Millard SELF SEALING FUEL TANK REPAIRER Unavailable [phone] Inna Serrano APRN Primary Care Provider [phone] Reason for Visit * Reason Onset Date Comments HCN - Patient Message 01/15/2025 Encounter Details Date Type Department Care Team (Late st Contact Info) Description 01/15/2025 Telephone Physical [facility] at [facility] [address] [facility] [place] [address] Leslie Suarez DO [address] [facility] [address] [place] [address] HCN - Patient Message Social [...] Telephone Encounter - Leslie Suarez DO - 01/15/2025 8:28 PM EDT Thank you for the update * Telephone Encounter - Carissa Fried - 01/15/2025 2:45 PM EDT Clinical Concern/Question SANDIE Reason for Call: Patient called back psychiatric therapist is ordering US of kidney plus needle biopsy 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 It is all from drinking water where the PFA was in the water. Best contact number: [phone] (mobile) Optimal time of day to reach caller: ANYTIME Additional comments/information from caller: None Note: Please do not reply to this message. Follow-up communication and further actions as a result of this message need to be communicated with the patient directly, if the patient is not active onMyChart. If the patient is active on MyChart, they will receive notification of the communication/outcome via Betterment. documented in this encounter Plan of Treatment Upcoming Encounters Date Type Department Care Team (Late st Contact Info) Description 02/12/2025 3:00 PM EDT Office Visit [facility] at [facility] [address] [place] [address] Leslie Suarez DO [address] [place] [address] 04/08/2025 12:00 PM EST Office Visit [facility] Nephrology, Bone & Mineral Metabolism [address], [address] [place] [address] David Workman MD [address] [place] [address] 09/30/2025 10:10 AM EDT Appointment P[facility] G Radiology [address] [place] [address] 09/30/2025 11:30 AM EDT Office Visit [facility] Head, Neck & Respiratory [address] , 2nd [place] [address] Aysha Crews MD [address] [place] [address] documented as of this encounter Visit Diagnoses Not on filedocumented in this encounter Additional Health Concerns Assessment Noted Time A fall risk assessment has been complete d for the patient 01/08/2025 1:58 PM EDT A Body Mass Index follow-up plan has been documented for the patient 01/08/2025 3:33 PM EDT documented as of this encounter Care Teams Hydrocrane Operator Relationship Specialty Start Date End Date Inna Serrano APRN [address] [place] [address] PCP - General 02/19/24 Ángela Millard APRN [address] [place] [address] Nurse Practitioner Neurosurgery 09/17/21 documented as of this encounter
--- OUTSIDE RECORDS SUMMARY | 2025-01-21 14:12 | XMS_ITS | Encounter Summary ---
Author Organization Healthcare Address [address] [place] [address] Care Team Providers Care Check Weigher Name Role Phone Antwan Esparza MD Primary Care Provider [phone] Ángela Millard SLIP MIXER Unavailable [phone] Inna Serrano SLIP MIXER Primary Care Provider [phone] Encounter Details Date Type Department Care Team (Late Contact Info) Description 04/06/2022 Orders Only External Location [address] [place] [address] Petra Regalado [address] [address] Social History Tobacco Use Types [...] [facility] [address] [place] [address] Leslie Suarez DO [address] [place] [address] 04/08/2025 12:00 PM EST Office Visit Professional [facility] Nephrology, Bone & Mineral Metabolism [address] [facility], [address] [place] [address] David Workman MD [address] [place] [address] 09/30/2025 10:10 AM EDT Appointment P[facility] G Radiology [address] [place] [address] 09/30/2025 11:30 AM EDT Office Visit [facility] Head, Neck & Respiratory 800 [facility], 2nd [place] [address] Aysha Crews MD [address] [place] [address] documented as of this encounter Procedures Procedure Name Priority Date/Time Associated Diagnosis Comments MR MSK OUTSIDE IMAGES 04/06/2022 1:22 PM EST documented in this encounter Results * MR MSK OUTSIDE IMAGES (04/06/2022 1:22 PM EST) Anatomical Region Laterality Modality Magnetic Resonan ce 04/06/2022 1:22 PM EST Petra Regalado [facility] MRI PROCEDURES Final Result documented in this encounter Visit Diagnoses Not on filedocumented in this encounter Additional Health Concerns Assessment Noted Time A fall risk assessment has been complete d for the patient 01/31/2022 1:51 PM EDT documented as of this encounter Care Teams Check Weigher Relationship Specialty Start Date End Date Antwan Esparza MD [address] [place] [address] PCP - General 12/14/20 02/18/24 Inna Serrano APRN [facility] [place] [address] PCP - General 02/19/24 Ángela Millard APRN [address] [place] [address] Nurse Practitioner Neurosurgery 09/17/21 documented as of this encounter
--- OUTSIDE RECORDS SUMMARY | 2025-01-21 14:12 | XMS_ITS | Encounter Summary ---
Author Organization Healthcare Address [address] [place] [address] Care Team Providers Care Audio Installer Name Role Phone Antwan Esparza MD Primary Care Provider [phone] Ángela Millard SHELLFISH SORTER Unavailable [phone] Inna Serrano SHELLFISH SORTER Primary Care Provider + [phone] Encounter Details Date Type Department Care Team (Late st Contact Info) Description 05/24/2022 Orders Only External Location [address] [place] [address] Provider, External Social History Tobacco Use Types [facility] [address] [place] [address] Leslie Suarez DO [address] [place] [address] 04/08/2025 12:00 PM EST Office Visit Professional [facility] Nephrology, Bone & Mineral Metabolism [address] [facility], [address] [place] [address] David Workman MD [address] [place] [address] 09/30/2025 10:10 AM EDT Appointment PAV G Radiology [address] [place] [address] 09/30/2025 11:30 AM EDT Office Visit Pav CC Head, Neck & Respiratory 800 [facility], 2nd [place] [address] Aysha Crews MD [address] [place] [address] documented as of this encounter [...] documented as of this encounter Care Teams Audio Installer Relationship Specialty Start Date End Date Antwan Esparza MD 9 [place] [address] PCP - General 12/14/20 02/18/24 Inna Serrano APRN [facility] [place] [address] PCP - General 02/19/24 Ángela Millard APRN [address] [place] [address] Nurse Practitioner Neurosurgery 09/17/21 documented as of this encounter
--- OUTSIDE RECORDS SUMMARY | 2025-01-21 14:12 | XMS_ITS | Encounter Summary ---
Author Organization Healthcare Address [address] [place] [address] Care Team Providers Care Awning Erector Name Role Phone Demler Fritz MD Primary Care Provider [phone] Antwan Esparza MD Primary Care Provider + [phone] Ángela Millard ONCOLOGY SOCIAL WORKER Unavailable [phone] Inna Serrano APRN Primary Care Provider + [phone] Encounter Details Date Type Department Care Team (Late st Contact Info) Description 02/08/2017 Orders Only External Location [address] [place] [address] Provider, External Social History Tobacco Use Types [...] Rehabilitation Clinic at [facility] [address] [place] [address] Leslie Suarez DO [address] [place] [address] 04/08/2025 12:00 PM EST Office Visit Professional [facility] Nephrology, Bone & Mineral Metabolism [address] [facility] [place], [address] [place] [address] David Workman MD [address] [place] [address] 09/30/2025 10:10 AM EDT Appointment P[facility] G Radiology [address] [place] [address] 09/30/2025 11:30 AM EDT Office Visit Pav CC Head, Neck & Respiratory 800 [facility], 2nd [place] [address] Aysha Crews MD [address] [facility] [address] [place] [address] documented as of this encounter [...] on filedocumented in this encounter Care Teams Awning Erector Relationship Specialty Start Date End Date Delmer Fritz MD [address] [place] [address] [address] [place] [address] PCP - General 10/02/20 12/13/20 Antwan Esparza MD 9 [place] [address] PCP - General 12/14/20 02/18/24 Inna Serrano APRN [address] [place] [address] PCP - General 02/19/24 Ángela Millard APRN [address] [facility] [address] [place] [address] Nurse Practitioner Neurosurgery 09/17/21 documented as of this encounter
--- OUTSIDE RECORDS SUMMARY | 2025-01-21 14:12 | XMS_ITS | Encounter Summary ---
Author Organization Healthcare Address [address] [place] [address] Care Team Providers Care Coal Getter Name Role Phone Delmer Fritz MD Primary Care Provider [phone] Antwan Esparza MD Primary Care Provider + [phone] Ángela Millard DENTAL HYGIENE INSTRUCTOR Unavailable [phone] Inna Serrano APRN Primary Care Provider [phone] Encounter Details Date Type Department Care Team (Late st Contact Info) Description 07/20/2012 Orders Only External Location [address] [place] [address] Vin Ji MD [address] [facility]100 [place], [place] [id number] Social History Tobacco Use Types Packs/Day Years [...] Clinic at [facility] [address] [place] [address] Leslie Suarez DO [address] [facility] [address] [place] [address] 04/08/2025 12:00 PM EST Office Visit [facility] Nephrology, Bone & Mineral Metabolism [address] [facility], [address] [place] [address] David Workman MD [address] [place] [address] 09/30/2025 10:10 AM EDT Appointment [facility] Radiology [address] [place] [address] 09/30/2025 11:30 AM EDT Office Visit [facility] Head[facility] Neck & Respiratory 800 [facility], 2nd [place] [address] Aysha Crews MD [address] [place] [address] documented as of this encounter Procedures Procedure Name Priority Date/Time Associated Diagnosis Comments XR OUTSIDE IMAGES 07/20/2012 1:54 PM EST documented in this encounter Results * XR OUTSIDE IMAGES (07/20/2012 1:54 PM EST) Anatomical Region Laterality Modality Radiographic Kendra ging 07/20/2012 1:54 PM EST Vin Ji MD IMG XR PROCEDURES Final Res ult documented in this encounter Visit Diagnoses Not on filedocumented in this encounter Care Teams Coal Getter Relationship Specialty Start Date End Date Delmer Fritz MD [address] [facility] [address] [place] [address] PCP - General 10/02/20 12/13/20 Antwan Esparza MD [address] [place] [address] PCP - General 12/14/20 02/18/24 Inna Serrano APRN [address] [place] [address] PCP - General 02/19/24 Ángela Millard APRN [address] [place] [address] Nurse Practitioner Neurosurgery 09/17/21 documented as of this encounter
--- OUTSIDE RECORDS SUMMARY | 2025-01-21 14:12 | XMS_ITS | Encounter Summary ---
Author Organization Healthcare Address [address] [place] [address] Care Team Providers Care Underwriting Technician Name Role Phone Delmer Fritz MD Primary Care Provider [phone] Antwan Esparza MD Primary Care Provider + [phone] Ángela Millard BOAT DRIVER Unavailable [phone] Inna Serrano APRN Primary Care Provider + [phone] Encounter Details Date Type Department Care Team (Late st Contact Info) Description 07/30/2018 Orders Only External Location [address] [place] [address] Provider, External Social History Tobacco Use Types [...] Physical Medicine & Rehabilitation Clinic at [facility] [address] [place] [place] [address] Leslie Suarez DO [address] [place] [address] 04/08/2025 12:00 PM EST Office Visit Professional [facility] Nephrology, Bone & Mineral Metabolism [address] [facility], [address] [place] [address] David Workman MD [address] [place] [address] 09/30/2025 10:10 AM EDT Appointment [facility] G Radiology [address] [place] [address] 09/30/2025 11:30 AM EDT Office Visit [facility] Head, Neck & Respiratory 800 [facility], 2nd [place] [address] Aysha Crews MD [address] [facility] [address] [place] [address] documented as of this encounter [...] on filedocumented in this encounter Care Teams Underwriting Technician Relationship Specialty Start Date End Date Delmer Fritz MD [address] [place] [address] [address] [place] [address] PCP - General 10/02/20 12/13/20 Antwan Esparza MD [address] [place] [address] PCP - General 12/14/20 02/18/24 Inna Serrano APRN [address] [place] [address] PCP - General 02/19/24 Ángela Millard APRN [address] [place] [address] Nurse Practitioner Neurosurgery 09/17/21 documented as of this encounter
--- OUTSIDE RECORDS SUMMARY | 2025-01-21 14:12 | XMS_ITS | Encounter Summary ---
Author Organization [facility] Address [address] [id number] Care Team Providers Care Document Preparation Specialist Name Role Phone Ángela Millard Ev DINKEY OPERATOR SLATE Unavailable [phone] Inna Serrano APRN Primary Care Provider [phone] Reason for Visit * Reason Onset Date Comments HCN - Patient Message 01/14/2025 Encounter Details Date Type Department Care Team ([facility] st Contact Info) Description 01/14/2025 Telephone [facility] Nephrology, Bone & Mineral Metabolism [address] [facility], [address] [place] [address] David Workman MD [address] [place] [address] HCN - Patient Message Social History [...] * Telephone Encounter - Celina Arce - 01/16/2025 1:45 PM EDT Prior auth not required Renal ultrasound order faxed to [facility] [place] Scheduling [phone] * Telephone Encounter - Celina Arce - 01/14/2025 12:19 PM EDT Confirmed with facility that order was received, stated they need prior auth. Auth team notified * Telephone Encounter - Claudia Griffin - 01/14/2025 12:11 PM EDT Patient Phone Message Reason for Call: Pt says [facility] does not have his renal US order. He is asking for the status of the referral. Best contact number and optimal time of day to reach caller: [phone] Note: Please do not reply to this message. Follow-up communication and further actions as a result of this message need to be communicated with the patient directly, if the patient is not active onMyChart. If the patient is active on MyChart, they will receive notification of the communication/outcome via Eventupt. documented in this encounter Plan of Treatment Upcoming Encounters Date Type Department Care Team (Late st Contact Info) Description 02/12/2025 3:00 PM EDT Office Visit [facility] [address] [address] Leslie Suarez DO [address] [place] [address] 04/08/2025 12:00 PM EST Office Visit [facility] Nephrology, Bone & Mineral Metabolism [address] [facility], [address] [place] [address] David Workman MD [address] [place] [address] 09/30/2025 10:10 AM EDT Appointment [facility] Radiology [address] [place] [address] 09/30/2025 11:30 AM EDT Office Visit [facility] Head, Neck & Respiratory 800 [facility], 2nd [place] [address] Aysha Crews MD [address] [place] [address] documented as of this encounter Visit Diagnoses Not on filedocumented in this encounter Additional Health Concerns Assessment Noted Time A fall risk assessment has been complete d for the patient 01/08/2025 1:58 PM EDT A Body Mass Index follow-up plan has been documented for the patient 01/08/2025 3:33 PM EDT documented as of this encounter Care Teams Document Preparation Specialist Relationship Specialty Start Date End Date Inna Serrano, DINKEY OPERATOR [address] [place] [address] PCP - General 02/19/24 Ángela Millard, DINKEY OPERATOR SLATE [address] [place] [address] Nurse Practitioner Neurosurgery 09/17/21 documented as of this encounter
--- OUTSIDE RECORDS SUMMARY | 2025-01-21 14:12 | XMS_ITS | Encounter Summary ---
Author Organization Healthcare Address [address] [place] [address] Care Team Providers Care Water Hauler Name Role Phone Antwan Esparza MD Primary Care Provider + [phone] Ángela Millard APRN Unavailable [phone] Inna Serrano APRN Primary Care Provider + [phone] Encounter Details Date Type Department Care Team (Late Contact Info) Description 08/06/2021 Orders Only External Location [address] [place] [address] Provider, External Social History Tobacco Use Types [...] [facility] at [facility] [address] [place] [address] Leslie Suarez DO [address] [place] [address] 04/08/2025 12:00 PM EST Office Visit [facility] Nephrology, Bone & Mineral Metabolism [address] [facility], [address] [place] [address] David Workman MD [address] [place] [address] 09/30/2025 10:10 AM EDT Appointment [facility] Radiology [address] [place] [address] 09/30/2025 11:30 AM EDT Office Visit [facility] Head, Neck & Respiratory 800 [facility], 2nd [place] [address] Aysha Crews MD [address] [place] [address] documented as of this encounter [...] documented as of this encounter Care Teams Water Hauler Relationship Specialty Start Date End Date Antwan Esparza MD [address] [place] [address] PCP - General 12/14/20 02/18/24 Inna Serrano APRN [facility] [place] [address] PCP - General 02/19/24 Ángela Millard APRN [address] [address] Nurse Practitioner Neurosurgery 09/17/21 documented as of this encounter
--- OUTSIDE RECORDS SUMMARY | 2025-01-21 14:12 | XMS_ITS | Encounter Summary ---
Author Organization [facility] Address [address] [place] [address] Care Team Providers Care Dental Financial Coordinator Name Role Phone Antwan Esparza MD Primary Care Provider [phone] Ángela Millard EXECUTIVE DIRECTOR SHELTERED WORKSHOP Unavailable [phone] Inna Serrano EXECUTIVE DIRECTOR SHELTERED WORKSHOP Primary Care Provider + [phone] Encounter Details Date Type Department Care Team (Late Contact Info) Description 07/06/2022 Orders Only External Location [address] [place] [address] Damien Childs MD [address] [facility] [address] [place] [address] Social History Tobacco Use Types [...] [facility] at [facility] [address] [place] [address] Leslie Suarez DO [address] [facility] [address] [place] [address] 04/08/2025 12:00 PM EST Office Visit [facility] Nephrology, Bone & Mineral Metabolism [address], [address] [place] [address] David Workman MD [address] [place] [address] 09/30/2025 10:10 AM EDT Appointment [facility] Radiology [address] [place] [address] 09/30/2025 11:30 AM EDT Office Visit [facility] Head, Neck & Respiratory [address] , 2nd [place] [address] Aysha Crews MD [address] [place] [address] documented as of this encounter [...] documented as of this encounter Care Teams Dental Financial Coordinator Relationship Specialty Start Date End Date Antwan Esparza MD [address] [place] [address] PCP - General 12/14/20 02/18/24 Inna Serrano APRN [address] [place] [address] PCP - General 02/19/24 Ángela Millard APRN [address] [place] [address] Nurse Practitioner Neurosurgery 09/17/21 documented as of this encounter
--- OUTSIDE RECORDS SUMMARY | 2025-01-21 14:12 | XMS_ITS | Encounter Summary ---
Author Organization Healthcare Address [address] [place] [address] Care Team Providers Care Cytopathology Technologist Name Role Phone Delmer Fritz MD Primary Care Provider [phone] Antwan Esparza MD Primary Care Provider + [phone] Ángela Millard BIT WELDER Unavailable [phone] Inan Serrano APRN Primary Care Provider [phone] Encounter Details Date Type Department Care Team (Late st Contact Info) Description 02/09/2011 Orders Only External Location 800 [place] [address] Vin Ji MD [address] [facility]100 [place], [place] [address] Social History Tobacco Use Types Packs/Day Years [...] [facility] [address] [place] [address] Leslie Suaerz DO 2049 [facility] [address] [place] [address] 04/08/2025 12:00 PM EST Office Visit [facility] Nephrology, Bone & Mineral Metabolism [address] [facility], [address] [place] [address] David Workman MD [address] [place] [address] 09/30/2025 10:10 AM EDT Appointment [facility] G Radiology [address] [place] [address] 09/30/2025 11:30 AM EDT Office Visit [facility] Head, Neck & Respiratory 800 [facility], 2nd [place] [address] yAsha Crews MD [address] [place] [address] documented as of this encounter [...] on filedocumented in this encounter Care Teams Cytopathology Technologist Relationship Specialty Start Date End Date Delmer Fritz MD 430 [facility] [address] [place] [address] PCP - General 10/02/20 12/13/20 Antwan Esparza MD [address] [place] [address] PCP - General 12/14/20 02/18/24 Inna Serrano APRN [facility] [place] [address] PCP - General 02/19/24 Ángela Millard APRN [address] [place] [address] Nurse Practitioner Neurosurgery 09/17/21 documented as of this encounter
--- OUTSIDE RECORDS SUMMARY | 2025-01-21 14:12 | XMS_ITS | Encounter Summary ---
Author Organization Healthcare Address [address] [place] [address] Care Team Providers Care Spinning Lathe Operator Name Role Phone Antwan Esparza MD Primary Care Provider + [phone] Ángela Millard RESEARCH BIOSTATISTICIAN Unavailable [phone] Inna Serrano APRN Primary Care Provider + [phone] Encounter Details Date Type Department Care Team (Late Contact Info) Description 03/08/2021 Orders Only External Location [address] [place] [address] Provider, External Social History Tobacco Use Types [...] Visit Physical Medicine & Rehabilitation [facility] at [facility] [address] [place] [address] Leslie Suarez DO [address] [place] [address] 04/08/2025 12:00 PM EST Office Visit [facility] Nephrology, Bone & Mineral Metabolism [address] [facility], [address] [place] [address] David Workman MD 800 [place] [address] 09/30/2025 10:10 AM EDT Appointment [facility] G Radiology [address] [place] [address] 09/30/2025 11:30 AM EDT Office Visit [facility] Head, Neck & Respiratory 800 [facility], 2nd [place] [address] Aysha Crews MD [address] [place] [address] documented as of this encounter Procedures Procedure Name Priority Date/Time Associated Diagnosis Comments CT THORACIC OUTSIDE IMAGES 03/08/2021 2:34 PM EDT documented in this encounter Results * CT THORACIC OUTSIDE IMAGES (03/08/2021 2:34 PM EDT) Anatomical Region Laterality Modality Computed Tomogra phy 03/08/2021 2:34 PM EDT us External Provider IMG CT PROCEDURES Final Result documented in this encounter Visit Diagnoses Not on filedocumented in this encounter Additional Health Concerns Assessment Noted Time A fall risk assessment has been complete d for the patient 12/14/2020 9:53 AM EDT documented as of this encounter Care Teams Spinning Lathe Operator Relationship Specialty Start Date End Date Antwan Esparza MD [address] [place] [address] PCP - General 12/14/20 02/18/24 Inna Serrano APRN [facility] [place] [address] PCP - General 02/19/24 Ángela Millard APRN [address] [place] [address] Nurse Practitioner Neurosurgery 09/17/21 documented as of this encounter
--- OUTSIDE RECORDS SUMMARY | 2025-01-21 14:13 | XMS_ITS | Encounter Summary ---
Author Organization Healthcare Address [address] [place] [place] [id number] Care Team Providers Care Journeyman Machinist Name Role Phone Ángela Millard NUTRITION PROFESSOR Unavailable [phone] Inna Serrano NUTRITION PROFESSOR Primary Care Provider [phone] Encounter Details Date Type Department Care Team (Late st Contact Info) Description 12/03/2024 Telephone [facility] Head[facility] Neck & Respiratory [address], 2nd [place] [address] Aysha Crews MD [address] [place] [address] Social History Tobacco Use Types [...] lesions would be better addressed by a multiple slide operator or other specialist and that his PCP would be the one to make that referral. Pt expressed concern that manydermatologists don't take medicaid. RN advised pt to reach out to PCP and work with them to find a multiple slide operator that does accept his insurance. Pt verbalized [...] Rehabilitation Clinic at [facility] [address] [place] [address] Leslie Suarez, [address] [place] [address] 04/08/2025 12:00 PM EST Office Visit [facility] Nephrology, Bone & Mineral Metabolism [address] [facility], [address] [place] [address] David Workman MD [address] [place] [address] 09/30/2025 10:10 AM EDT Appointment [facility] G Radiology [address] [place] [address] 09/30/2025 11:30 AM EDT Office Visit [facility] Head, Neck & Respiratory [address] , 2[address] [place] [address] Aysha Crews MD [address] [place] [address] documented as of this encounter Visit Diagnoses Not on filedocumented in this encounter Additional Health Concerns Assessment Noted Time A fall risk assessment has been complete d for the patient 11/11/2024 1:29 PM EDT A Body Mass Index follow-up plan has been documented for the patient 11/11/2024 5:31 PM EDT documented as of this encounter Care Teams Journeyman Machinist Relationship Specialty Start Date End Date Inna Serrano APRN [address] [place] [address] PCP - General 02/19/24 Ángela Millard APRN [address] [place] [address] Nurse Practitioner Neurosurgery 09/17/21 documented as of this encounter
--- OUTSIDE RECORDS SUMMARY | 2025-01-21 14:13 | XMS_ITS | Encounter Summary ---
Author Organization Healthcare Address [address] [place] [address] Care Team Providers Care Fire Code Inspector Name Role Phone Delmer Fritz MD Primary Care Provider [phone] Antwan Esparza MD Primary Care Provider + [phone] Ángela Millard PREMIUM CARD CANCELLATION CLERK Unavailable [phone] Inna Serrano APRN Primary Care Provider + [phone] Encounter Details Date Type Department Care Team (Late st Contact Info) Description 05/13/2020 Orders Only External Location [address] [place] [address] Provider, External Social History Tobacco Use Types [...] Rehabilitation Clinic at [facility] [address] [place] [address] Leslie Suarez DO [address] [place] [address] 04/08/2025 12:00 PM EST Office Visit [facility] Nephrology, Bone & Mineral Metabolism [address] [facility], [address] [place] [address] David Workman MD [address] [place] [address] 09/30/2025 10:10 AM EDT Appointment [facility] Radiology [address] [place] [address] 09/30/2025 11:30 AM EDT Office Visit [facility] Head, Neck & Respiratory 800 [facility], 2nd [place] [address] Aysha Crews MD [address] [facility] [address] [place] [address] documented as of this encounter [...] on filedocumented in this encounter Care Teams Fire Code Inspector Relationship Specialty Start Date End Date Delmer Fritz MD [address] [place] [address] [address] [place] [address] PCP - General 10/02/20 12/13/20 Antwan Esparza MD [address] [place] [address] PCP - General 12/14/20 02/18/24 Inna Serrano APRN [address] [place] [address] PCP - General 02/19/24 Ángela Millard APRN [address] [place] [address] Nurse Practitioner Neurosurgery 09/17/21 documented as of this encounter
--- OUTSIDE RECORDS SUMMARY | 2025-01-21 14:13 | XMS_ITS | Clinical Summary ---
Author Organization [facility] Address [address] [place] [address] Care Team Providers Care Beading Installer Name Role Phone Ángela Millard WELDER FITTER HELPER Unavailable [phone] Inna Serrano WELDER FITTER HELPER Primary Care Provider [phone] Allergies Active Allergy Reactions Criticality Noted Date [...] Other Swelling High 11/01/2018 STERIODS Penicillins Rash,Anaphylaxis,It edan,Swelling High 05/28/2010 Prednisone Anaphylaxis,Swellin g,Unknown - Patient [...] Medications EPINEPHrine (Epipen) 0.3 MG/0.3ML injection syringe 11/18/19 18 Active promethazine (Phenergan) 25 MG tablet Take 1 tablet (25 mg) by mouth. 11/22/19 19 Active amantadine (Symmetrel) 100 MG tablet Take 1 tablet (100 mg) by mouth 1 (one) time each day. 08/11/19 23 Active doxazosin (Cardura) 4 MG tablet Take 1 tablet (4 mg) by mouth every night. 12/14/19 23 Active isosorbide mononitrate ER (Imdur) 120 MG 24 hr tablet Take 1 tablet (120 mg) by mouth 1 (one) time each day. 12/08/19 23 Active metOLazone (Zaroxolyn) 5 MG tablet Take 1 tablet (5 mg) by mouth 1 (one) time each day. 11/30/19 23 Active nitroglycerin (Nitrostat) 0.4 MG SL tablet 11/30/19 23 Active rosuvastatin (Crestor) 40 MG tablet 12/08/19 23 Active metoprolol succinate XL (Toprol-XL) 100 MG 24 hr tablet Take 1 tablet (100 mg) by mouth 1 (one) time each day. 12/13/19 23 Active NIFEdipine XL (Procardia XL) 90 MG 24 hr tablet 03/15/20 23 Active naloxone (Narcan) 4 mg/0.1 mL nasal spray 1. Give 1 spray in nostril for no/slow breathing or cannot wake after opioid use 2. Call 911 3. Repeat in other nostril if symptoms continue 1 each 11/17/19 24 Active pantoprazole (Protonix) 40 MG EC tablet 11/06/19 24 Active metoclopramide (Reglan) 10 MG tablet Take 1 tablet (10 mg) by mouth. 02/14/20 24 Active tamsulosin (Flomax) 0.4 MG 24 hr capsule Take 1 capsule by mouth daily. 10/22/19 25 Active LORazepam (Ativan) 0.5 MG tablet Take 1 tablet by mouth 2 times a day. 10/30/19 25 Active cyclobenzaprine (Flexeril) 5 MG tablet Take 1 tablet by mouth 2 times a day. 120 tablet 3 11/12/19 25 Active HYDROcodone-nelida taminophen ([place]) 5-325 MG tablet Take 1 tablet by mouth every 6 hours as needed for severe pain. 120 tablet 01/10/20 25 Active diclofenac (Voltaren) 1 % topical gel 01/23/20 24 025 Discontinued Entresto 49-51 MG tablet Take 1 tablet by mouth 2 times a day. 10/25/19 25 025 Discontinued furosemide (Lasix) 40 MG tablet Take 1 tablet by mouth daily. 10/25/19 25 025 Discontinued HYDROcodone-nelida taminophen ([place]) 5-325 MG tablet TAKE 1 TABLET BY MOUTH EVERY 6 HOURS NEEDED FOR SEVERE pain 120 tablet 12/14/19 25 025 Discontinued(Re order) Active Problems Problem Noted Date Diagnosed Date Tobacco use disorder 09/24/2024 Second hand smoke exposure 09/24/2024 Chronic back pain 08/21/2018 Elbow pain 08/17/2017 DJD (degenerative joint disease) 05/12/2014 Encounters Date Type Department Care Team Description 01/21/2025 Telephone [facility] [address] [address] Leslie Suarez DO HCN - Patient Message 01/15/2025 Telephone [facility] [address] [place] [address] Leslie Suarez DO HCN - Patient Message 01/14/2025 Telephone [facility] [place] [facility] [address], [address] [place] [address] David Workman MD HCN - Patient Message 01/09/2025 Telephone [facility] [address], [address] [place] [address] David Workman MD HCN - Patient Message 01/08/2025 2:00 PM EDT Office Visit [facility] [address], [address] [place] [address] David Workman MD CKD stage 3a, GFR 45-59 ml/min (CMS/HCC) (Primary Dx) 01/08/2025 Telephone [facility] [address] [place] [address] Leslie Suarez DO HCN Status Update Call #2 01/08/2025 Travel 01/01/2025 Travel 12/30/2024 Telephone [facility] [address], [address] [place] [address] David Workman MD 12/23/2024 Telephone [facility] [address], [address] [place] [address] Greta Elliott MD HCN Clinical Concern/Question 12/19/2024 Orders Only [facility] [address] [place] [address] Leslie Suarez DO High risk medication use (Primary Dx) 12/19/2024 Telephone [facility] [address] [place] [address] Leslie Suarez DO HCN - Patient Message 12/19/2024 Telephone [facility] [address], [address] [place] [address] David Workman MD HCN Clinical Concern/Question 12/19/2024 Travel 12/13/2024 Refill [facility] [address] [place] [address] Leslie Suarez, 12/13/2024 Telephone [facility] [address] [facility], [address] [place] [address] None, None HCN - Patient Message 12/13/2024 Refill [facility] [address] [place] [address] Leslie Suarez, 12/09/2024 Telephone [facility] [address] [place] [address] Leslie Suarez, HCN - Patient Message 12/09/2024 Telephone [facility] [address] [place] [address] Leslie Suarez DO HCN - Patient Message 12/03/2024 Telephone [facility] [address] [place] [address] Aysha Crews MD 12/02/2024 Telephone [facility] [address] [place] [address] Leslie Suarez DO HCN - Patient Message 11/12/2024 Telephone [facility] [address], [address] [place] [phone] Aysha Crews MD 11/11/2024 1:40 PM EDT Office Visit [facility] [address] [place] [address] Leslie Suarez DO High risk medication use (Primary Dx) 11/11/2024 Travel 10/31/2024 Telephone [facility] [address] [place] [address] Leslie Suarez, HCN - Patient Message; HCN Status Update Call #1 10/31/2024 Telephone [facility] [address] [place] [address] Leslie Suarez, HCN - Patient Message 10/28/2024 Telephone [facility] [address] [place] [address] Leslie Suarez, HCN - Patient Message 10/24/2024 Telephone [facility] [address] [place] [address] Leslie Suarez, HCN - Patient Message 10/23/2024 Telephone [facility] [address] [place] [id number] Aysha Crews MD 10/22/2024 Telephone [facility] [address] [place] [address] [place] [address] Leslie Suarez, HCN Clinical Concern/Question 10/21/2024 Telephone [facility] [address] [place] [address] [place] [address] Leslie Suarez, HCN Status Update Call #1 from Last 3 Months Immunizations Immunization Administration Dates Next Due DTaP 08/21/2013 Influenza, Unspecified 03/01/2011 Influenza, intradermal, quad rivalent, preservative free 05/23/2018 Pneumococcal Conjugate PCV 13 02/05/2024, 019 TD (adult), 2 Lf tetanus tox oid, preservative free, adsorbed 03/05/2004 Family History Medical History Relation Name Comments Dislocations Brother Mothers brother Diabetes Father Father Epilepsy Father Father Hypertension Father Father Kidney Stones Father Father Thyroid disease Father Father Allergies Mother Mother Arthritis Mother Mother Asthma Mother Mother COPD Mother Mother Cancer Mother Mother Coronary artery disease Mother Mother Heart disease Mother Mother Hyperlipidemia Mother Mother Hypertension Mother Mother Lung cancer Mother Mother Osteoporosis Mother Mother Broken bones Mother's Brother 1 Mother Severe sprains Mother's Brother 2 Luca mother Heart attack Other 1 Cancer Other 2 Conversions - Other Other 3 Other Sp ecified Family Circumstances Diabetes Paternal Grandfather Father Vision loss Son Luca kauffman Relation Name Status Comments Brother Mothers brother Father Father Mother Mother Mother's Brother 1 Mother Mother's Brother 2 Luca mother Other 1 Other 2 Other 3 Paternal Grandfather Father Son Luca kauffman Alive Social History Tobacco Use Types Packs/Day Years [...] F) 01/08/2025 1:59 PM EDT Respiratory Rate 18 09/24/2024 10:1 6 AM EDT Oxygen Saturation 95% 01/08/2025 1:5 9 PM EDT Inhaled Oxygen Concentration - - Weight 115 kg (253 lb) 01/08/2025 1:59 PM EDT Height 182.9 cm (6') 01/08/2025 1:59 PM EDT Body Mass Index 34.31 01/08/2025 1:59 PM EDT Plan of Treatment Upcoming Encounters Date Type Department Care Team (Late st Contact Info) Description 02/12/2025 3:00 PM EDT Office Visit [facility] [address] [place] [address] Leslie Suarez DO [address] [place] [address] 04/08/2025 12:00 PM EST Office Visit [facility] [address] [facility], [address] [place] [address] David Workman MD [address] [place] [address] 09/30/2025 10:10 AM EDT Appointment [facility] [address] [place] [address] 09/30/2025 11:30 AM EDT Office Visit [facility] [address] [place] [address] Aysha Crews MD [address] [place] [address] Health Maintenance Due Date Last Done Comments [facility]-HIV Screening 1967 [facility]-Hepatitis C Screening 1967 [facility]-/Child/Adol SDOH Screenings 1965 [facility]- SDOH Screenings 11/13/1985 [facility]-Adult SDOH Screenings 11/13/1985 [facility]-Hepatitis B Vaccines (1 of 3 - 19+ 3-dose series) 11/13/1986 CT Colonography 11/13/2012 Colonoscopy 11/13/2012 FIT-DNA 11/13/2012 FIT 11/13/2012 FOBT 11/13/2012 Sigmoidoscopy 11/13/2012 [facility]-Colorectal Cancer Screening 11/13/2012 [facility]-Zoster Vaccines (1 of 2) 11/13/2017 [facility]-DTaP,Tdap,and Td Vaccines (2 - Tdap) 08/22/2023 08/21/2013, 03/05/2004 [facility]-Pneumococcal Vaccine: 50+ Years (2 of 2 - PPSV23) 04/01/2024 02/05/2024, 05/23/2018 [id number] Vaccine (1 - 2023- season) 2025 [facility]-Influenza Vaccine (#1) 2025 03/01/2011 [facility]-Depression Screening 01/08/2026 01/08/2025 [facility]-Obesity Intervention Completed 025, 11/11/2024, 09/24/2024, Additional history exists HPV Vaccines Aged Out [...] on patient's age to complete this topic Procedures Procedure Name Priority Date/Time Associated Diagnosis Comments PROTEIN ELECTROPHORESIS, PATHOLOGIST INTERPRETATION Routine 01/08/2025 3:44 PM EDT CKD stage 3a, GFR 45-59 ml/min (CMS/HCC) KAPPA LAMBDA QUANTITATIVE FREE LIGHT CHAINS WITH RATIO Routine 01/08/2025 3:44 PM EDT CKD stage 3a, GFR 45-59 ml/min (CMS/HCC) RENAL FUNCTION PANEL, PLASMA Routine 01/08/2025 3:44 PM EDT CKD stage 3a, GFR 45-59 ml/min (CMS/HCC) CBC WITH AUTO DIFFERENTIAL Routine 01/08/2025 3:44 PM EDT CKD stage 3a, GFR 45-59 ml/min (CMS/HCC) PTH INTACT TOTAL Routine 01/08/2025 3:44 PM EDT CKD stage 3a, GFR 45-59 ml/min (CMS/HCC) VITAMIN D 25 HYDROXY Routine 01/08/2025 3:44 PM EDT CKD stage 3a, GFR 45-59 ml/min (CMS/HCC) KAPPA LAMBDA QUANT FREE LIGHT CHAINS WITH RATIO ORDERABLE Routine 01/08/2025 3:44 PM EDT CKD stage 3a, GFR 45-59 ml/min (CMS/HCC) TOTAL PROTEIN, SERUM Routine 01/08/2025 3:44 PM EDT CKD stage 3a, GFR 45-59 ml/min (CMS/HCC) PROTEIN ELECTROPHORESIS, SERUM Routine 01/08/2025 3:44 PM EDT CKD stage 3a, GFR 45-59 ml/min (CMS/HCC) PROTEIN ELECTROPHORESIS, SERUM Routine 01/08/2025 3:44 PM EDT CKD stage 3a, GFR 45-59 ml/min (CMS/HCC) URINALYSIS WITH REFLEX MICROSCOPIC Routine 01/08/2025 3:40 PM EDT CKD stage 3a, GFR 45-59 ml/min (CMS/HCC) ALBUMIN, URINE, RANDOM Routine 3:40 PM EDT CKD stage 3a, GFR 45-59 ml/min (CMS/HCC) PROTEIN, URINE, RANDOM WITH CREATININE Routine 01/08/2025 3:40 PM EDT CKD stage 3a, GFR 45-59 ml/min (CMS/HCC) PAIN MANAGEMENT, QUANTITATIVE URINE DRUG TESTING Routine 01/08/2025 1:38 PM EDT High risk medication use PAIN MANAGEMENT, QUANTITATIVE URINE DRUG TESTING Routine 01/08/2025 1:38 PM EDT High risk medication use from Last 3 Months Results * [place] Lambda Quant Free Light Chains w/Ratio (01/08/2025 3:44 PM EDT) [place] Lambda Free Light Chain Ratio 0.98 0.26 - 1.65 Ratio 01/09/2025 9:12 AM EDT [facility] [place] Quant Free Light Chains 18.92 3.30 - 19.40 mg/L 01/09/2025 9:12 AM EDT [facility] Lambda Quant Free Light Chains 19.21 5.71 - 26.30 mg/L 01/09/2025 9:12 AM EDT [facility] Blood Venous blood specimen / Unknown Venipuncture / Unknown 01/08/2025 3:44 PM EDT 01/08/2025 3:44 PM EDT Narrative [facility] - 01/09/2025 9:12 AM EDT Undetected antigen excess is a rare event but cannot be excluded.If these free light chain results do not agree with other clinical or laboratory findings,or if the sample is from a patient that has previously demonstrated antigen excess,the results must be checked by retesting at a higher sample dilution. Results should always be interpreted in conjunction with other laboratory tests and clinical evidence; any anomalies should be discussed with the testing laboratory. Test performed at [facility],Special Chemistry Laboratory. David Workman MD LAB BLOOD ORDERABLES Final Resul t Performing Organization Address City/[facility] Co de Phone Number [facility] [address] [place] [address] * Total Protein, Serum (01/08/2025 3:44 PM EDT) Total Protein 6.9 6.2 - 7.7 g/dL 01/08/2025 5:58 PM EDT [facility] Blood Venous blood specimen / Unknown Venipuncture / Unknown 01/08/2025 3:44 PM EDT 01/08/2025 3:44 PM EDT David Workman MD LAB BLOOD ORDERABLES Final Resul t [facility] [address] [place] [address] * Protein Electrophoresis, Serum (01/08/2025 3:44 PM EDT) Albumin Electrophoresis, Serum 4.1 3.6 - 4.7 g/dL 01/09/2025 2:51 AM EDT [facility] Alpha 1 Globulin Electrophoresis, Serum 0.4 0.2 - 0.4 g/dL 01/09/2025 2:51 AM EDT [facility] Alpha 2 Globulin Electrophoresis, Serum 0.8 0.5 - 0.9 g/dL 01/09/2025 2:51 AM EDT [facility] Beta 1 Globulin Electrophoresis, Serum 0.4 0.3 - 0.5 g/dL 01/09/2025 2:51 AM EDT [facility] Beta 2 Globulin Electrophoresis, Serum 0.4 0.2 - 0.5 g/dL 01/09/2025 2:51 AM EDT [facility] Gamma Globulin Electrophoresis, Serum 0.9 0.6 - 1.5 g/dL 01/09/2025 2:51 AM EDT [facility] Interpretation, Serum Protein Electrophoresis Pathology report to follow. 01/09/2025 2:51 AM EDT [facility] Blood Venous blood specimen / Unknown Venipuncture / Unknown 01/08/2025 3:44 PM EDT 01/08/2025 3:44 PM EDT us David Workman MD LAB BLOOD ORDERABLES Final Resul t [facility] [address] [place] [address] * Protein electrophoresis serum, pathologist interpretation (01/08/2025 3:44 PM EDT) Clinical Diagnosis, SPEP CKD stage 3a 01/09/2025 11:33 AM EDT [facility] Interpretation , SPEP There are no significant abnormalities in the protein electrophoretic pattern. A resident was involved in the service. I attest I examined the relevant preparations for the specimens and confirmed the diagnosis or interpretation. 01/09/2025 11:33 AM EDT [facility] Pathologist Signature, SPEP Reviewed by: Cory Valenzuela MD 01/09/2025 11:33 AM EDT [facility] CP ASR DISCLAIMER Yes 01/09/2025 11:33 AM EDT [facility] Blood Venous blood specimen / Unknown Venipuncture / Unknown 01/08/2025 3:44 PM EDT 01/08/2025 3:44 PM EDT us David Workman MD LAB PATHOLOGY ORDERABLES Final R esult Performing Organization Address City/[facility]/ZIP Co de Phone Number [facility] [address] [place] [address] * Vitamin D 25 Hydroxy (01/08/2025 3:44 PM EDT) Vitamin D 25 Hydroxy 20.2 20.0 - 80.0 ng/mL 01/08/2025 8:13 PM EDT [facility] Blood Venous blood specimen / Unknown Venipuncture / Unknown 01/08/2025 3:44 PM EDT 01/08/2025 3:44 PM EDT Narrative [facility] - 01/08/2025 8:13 PM EDT Testing performed on [employer], standardized against NIST SRM [id number]. When testing [...] ORDERABLES Final Resul t Performing Organization Address City/[facility]/ZIP Co de Phone Number [facility] [address] [place] [address] * (ABNORMAL) CBC and Differential (01/08/2025 3:44 PM EDT) WBC Count 9.82 3.70 - 10.30 10*3/uL LAB HEMATOLOGY METHOD 01/08/2025 5:22 PM EDT [facility] RBC Count 5.41 4.60 - 6.10 10*6/uL LAB HEMATOLOGY METHOD 01/08/2025 5:22 PM EDT [facility] HGB 17.0 13.7 - 17.5 g/dL LAB HEMATOLOGY METHOD 01/08/2025 5:22 PM EDT [facility] HCT 49.6 40.0 - 51.0 % LAB HEMATOLOGY METHOD 01/08/2025 5:22 PM EDT [facility] Platelet Count 152(L) 155 - 369 10*3/uL LAB HEMATOLOGY METHOD 01/08/2025 5:22 PM EDT [facility] MCV 92 79 - 98 fL LAB HEMATOLOGY METHOD 01/08/2025 5:22 PM EDT [facility] MCH 31.4 26.0 - 32.0 pg LAB HEMATOLOGY METHOD 01/08/2025 5:22 PM EDT [facility] MCHC 34.3 30.7 - 35.5 g/dL LAB HEMATOLOGY METHOD 01/08/2025 5:22 PM EDT [facility] RDW 12.1 11.5 - 14.5 % LAB HEMATOLOGY METHOD 01/08/2025 5:22 PM EDT [facility] MPV 12.4 8.8 - 12.5 fL LAB HEMATOLOGY METHOD 01/08/2025 5:22 PM EDT [facility] nRBC 0.0 <=0.0 per 100 WBCs LAB HEMATOLOGY METHOD 01/08/2025 5:22 PM EDT [facility] Differential Type Automated LAB HEMATOLOGY METHOD 01/08/2025 5:22 PM EDT [facility] Neutrophils % 66 % LAB HEMATOLOGY METHOD 01/08/2025 5:22 PM EDT [facility] Lymphocytes % 24 % LAB HEMATOLOGY METHOD 01/08/2025 5:22 PM EDT [facility] Monocytes % 7 % LAB HEMATOLOGY METHOD 01/08/2025 5:22 PM EDT [facility] Eosinophils % 2 % LAB HEMATOLOGY METHOD 01/08/2025 5:22 PM EDT [facility] Basophils % 1 % LAB HEMATOLOGY METHOD 01/08/2025 5:22 PM EDT [facility] Immature Granulocytes % 0 % LAB HEMATOLOGY METHOD 01/08/2025 5:22 PM EDT [facility] Neutrophils Absolute 6.44(H) 1.60 - 6.10 10*3/uL LAB HEMATOLOGY METHOD 01/08/2025 5:22 PM EDT [facility] Lymphocytes Absolute 2.34 1.20 - 3.90 10*3/uL LAB HEMATOLOGY METHOD 01/08/2025 5:22 PM EDT [facility] Monocytes Absolute 0.66 0.30 - 0.90 10*3/uL LAB HEMATOLOGY METHOD 01/08/2025 5:22 PM EDT [facility] Eosinophils Absolute 0.24 0.00 - 0.50 10*3/uL LAB HEMATOLOGY METHOD 01/08/2025 5:22 PM EDT [facility] Basophils Absolute 0.10 0.00 - 0.10 10*3/uL LAB HEMATOLOGY METHOD 01/08/2025 5:22 PM EDT [facility] Immature Granulocytes Absolute 0.04 0.00 - 0.06 10*3/uL LAB HEMATOLOGY METHOD 01/08/2025 5:22 PM EDT [facility] Blood Venous blood specimen / Unknown Venipuncture / Unknown 01/08/2025 3:44 PM EDT 01/08/2025 3:44 PM EDT Narrative [facility] - 01/08/2025 5:22 PM EDT Therapeutic decision making should be based on absolute values, rather than percentages. us David Workman MD LAB BLOOD ORDERABLES Final Resul t Performing Organization Address City/[facility] Co de Phone Number [facility] [address] [place] [address] * (ABNORMAL) PTH Intact Total (01/08/2025 3:44 PM EDT) PTH Intact Total 107(H) 9 - 77 pg/mL 01/08/2025 8:08 PM EDT [facility] Blood Venous blood specimen / Unknown Venipuncture / Unknown 01/08/2025 3:44 PM EDT 01/08/2025 3:44 PM EDT Narrative [facility] - 01/08/2025 8:08 PM EDT Assay performed by immunoassay at the [facility]. Performed on [employer] chemiluminescent immunoassay, tractable to the World Health Organization's first international standard for PTH from the NIBSC, Code 79/500. Results obtained from different test methods or kits cannot be used interchangeably. us David Workman MD LAB BLOOD ORDERABLES Final Resul t Performing Organization Address City/[facility]/ZIP Co de Phone Number [facility] [address] [place] [address] * (ABNORMAL) Renal Function Panel, Plasma (01/08/2025 3:44 PM EDT) [facility] Glucose, Plasma 96 74 - 99 mg/dL 01/08/2025 5:54 PM EDT [facility] BUN, Plasma 8 7 - 21 mg/dL 01/08/2025 5:54 PM EDT [facility] Creatinine, Plasma 1.26(H) 0.70 - 1.20 mg/dL 01/08/2025 5:54 PM EDT [facility] BUN/Creatinine Ratio 6 01/08/2025 5:54 PM EDT [facility] Sodium, Plasma 140 136 - 145 mmol/L 01/08/2025 5:54 PM EDT [facility] Potassium, Plasma 3.5(L) 3.6 - 4.9 mmol/L 01/08/2025 5:54 PM EDT [facility] Chloride, Plasma 102 97 - 107 mmol/L 01/08/2025 5:54 PM EDT [facility] CO2, Plasma 26 22 - 29 mmol/L 01/08/2025 5:54 PM EDT [facility] Anion Gap 12 6 - 16 mmol/L 01/08/2025 5:54 PM EDT [facility] Total Calcium, Plasma 9.1 8.9 - 10.2 mg/dL 01/08/2025 5:54 PM EDT [facility] Phosphorus, Plasma 3.3 2.5 - 4.5 mg/dL 01/08/2025 5:54 PM EDT [facility] Albumin, Plasma 4.4 3.5 - 5.2 g/dL 01/08/2025 5:54 PM EDT [facility] eGFRcr 66.5 mL/min/1.7 3m*2 01/08/2025 5:54 PM EDT [facility] Comment:Reported eGFRcr in m L/min/1.73m2 is based the CKD-EPI 2020 equation that does not use a race coefficient. Blood Venous blood specimen / Unknown Venipuncture / Unknown 01/08/2025 3:44 PM EDT 01/08/2025 3:44 PM EDT us David Workman MD LAB BLOOD ORDERABLES Final Resul t [facility] [address] [place] [id number] * Albumin-creatinine ratio, urine, random (01/08/2025 3:40 PM EDT) Microalbumin, Urine 1.78 <1.9 mg/dL 01/08/2025 6:10 PM EDT [facility] Creatinine, Urine 87 mg/dL 01/08/2025 6:10 PM EDT [facility] Albumin/Creati nine Ratio 20 0 - 30 mg/g creatinine 01/08/2025 6:10 PM EDT [facility] Urine Urine specimen obtained by clean catch procedure / Unknown Non-blood Collection / Unknown 01/08/2025 3:40 PM EDT 01/08/2025 3:40 PM EDT us David Workman MD LAB URINE ORDERABLES Final Resul t Performing Organization Address City/[facility]/ZIP Co de Phone Number [facility] [address] [place] [id number] * Protein, Random, Urine with Creatinine (01/08/2025 3:40 PM EDT) Protein, Urine 13 mg/dL 01/08/2025 5:55 PM EDT [facility] Creatinine, Urine 86 mg/dL 01/08/2025 5:55 PM EDT [facility] Protein/Creati nine Ratio 0.2 mg/mg Creat 01/08/2025 5:55 PM EDT [facility] Urine Urine specimen obtained by clean catch procedure / Unknown Non-blood Collection / Unknown 01/08/2025 3:40 PM EDT 01/08/2025 3:40 PM EDT us David Workman MD LAB URINE ORDERABLES Final Resul t Performing Organization Address City/[facility]/ZIP Co de Phone Number [facility] [address] [place] [address] * Urinalysis with reflex microscopic (Culture NOT Included) (01/08/2025 3:40 PM EDT) Color, Urine Yellow LAB URINALYSIS - AUTOMATED METHOD 01/08/2025 5:15 PM EDT [facility] Clarity, Urine Clear LAB URINALYSIS - AUTOMATED METHOD 01/08/2025 5:15 PM EDT [facility] Spec [place], Urine 1.010 1.005 - 1.030 LAB URINALYSIS - AUTOMATED METHOD 01/08/2025 5:15 PM EDT [facility] pH, Urine 6.0 5.0 - 8.0 LAB URINALYSIS - AUTOMATED METHOD 01/08/2025 5:15 PM EDT [facility] Protein, Urine Negative Negative mg/dL LAB URINALYSIS - AUTOMATED METHOD 01/08/2025 5:15 PM EDT [facility] Glucose, Urine Negative Negative mg/dL LAB URINALYSIS - AUTOMATED METHOD 01/08/2025 5:15 PM EDT [facility] Ketones, Urine Negative Negative mg/dL LAB URINALYSIS - AUTOMATED METHOD 01/08/2025 5:15 PM EDT [facility] Blood, Urine Negative Negative LAB URINALYSIS - AUTOMATED METHOD 01/08/2025 5:15 PM EDT [facility] Bilirubin, Urine Negative Negative LAB URINALYSIS - AUTOMATED METHOD 01/08/2025 5:15 PM EDT [facility] Urobilinogen, Urine 0.2 0.2 to 1.0 mg/dL LAB URINALYSIS - AUTOMATED METHOD 01/08/2025 5:15 PM EDT [facility] Leukocytes, Urine Negative Negative LAB URINALYSIS - AUTOMATED METHOD 01/08/2025 5:15 PM EDT [facility] Nitrite, Urine Negative Negative LAB URINALYSIS - AUTOMATED METHOD 01/08/2025 5:15 PM EDT [facility] Urine Urine specimen obtained by clean catch procedure / Unknown Non-blood Collection / Unknown 01/08/2025 3:40 PM EDT 01/08/2025 3:40 PM EDT us David Workman MD LAB URINE ORDERABLES Final Resul t [facility] [address] [place] [address] * (ABNORMAL) Pain Management, Quantitative Urine Drug Testing (01/08/2025 1:38 PM EDT) [place] Alprazolam <20 <20 ng/mL 01/11 9:44 AM EDT [facility] [place] Midazolam <20 <20 ng/mL 2024 9:44 AM EDT [facility] [place] Triazolam <20 <20 ng/mL 2024 9:44 AM EDT [facility] Alprazolam <10 <10 ng/mL 01/11/2025 9:44 AM EDT [facility] Aminoclonazepam <20 <20 ng/mL 9:44 AM EDT [facility] Amphetamine <50 <50 ng/mL 01/11/2025 9:44 AM EDT [facility] Benzoylecgonine <50 <50 ng/mL 9:44 AM EDT [facility] Buprenorphine <10 <10 ng/mL 01/11/2025 9:44 AM EDT [facility] Buprenorphine Glucuronide <50 <50 ng/mL 01/11/2025 9:44 AM EDT [facility] Butalbital <50 <50 ng/mL 01/11/2025 9:44 AM EDT [facility] 9 Carboxy THC <10 <10 ng/mL 01/11/2025 9:44 AM EDT [facility] 9 Carboxy THC Glucuronide <25 <25 ng/mL 01/11/2025 9:44 AM EDT [facility] Clonazepam <10 <10 ng/mL 01/11/2025 9:44 AM EDT [facility] Codeine <50 <50 ng/mL 01/11/2025 9:44 AM EDT [facility] Codeine Glucuronide <50 <50 ng/mL 01/11 9:44 AM EDT [facility] Cyclobenzaprine <50 <50 ng/mL 9:44 AM EDT [facility] Desmethyl Tramadol <50 <50 ng/mL 2024 9:44 AM EDT [facility] Diazepam <10 <10 ng/mL 01/11/2025 9:44 AM EDT [facility] EDDP - Methadone Metabolite <50 <50 ng/mL 01/11/2025 9:44 AM EDT [facility] Fentanyl <1 <1 ng/mL 01/11/2025 9:44 AM EDT [facility] Hydrocodone 168(H) <50 ng/mL 01/11/2025 9:44 AM EDT [facility] Hydromorphone <50 <50 ng/mL 01/11/2025 9:44 AM EDT [facility] Hydromorphone Glucuronide 157(H) <50 ng/mL 01/11/2025 9:44 AM EDT [facility] Lorazepam <20 <20 ng/mL 01/11/2025 9:44 AM EDT [facility] Lorazepam Glucuronide <50 <50 ng/mL 01/11/2025 9:44 AM EDT [facility] MDA <50 <50 ng/mL 01/11/2025 9:44 AM EDT [facility] MDMA <50 <50 ng/mL 01/11/2025 9:44 AM EDT [facility] Meperidine <50 <50 ng/mL 01/11/2025 9:44 AM EDT [facility] Methadone <50 <50 ng/mL 01/11/2025 9:44 AM EDT [facility] Methamphetamine <50 <50 ng/mL 9:44 AM EDT [facility] Methylphenidate <50 <50 ng/mL 9:44 AM EDT [facility] 6 Monoacetyl morphine <10 <10 ng/mL 01/11/2025 9:44 AM EDT [facility] Morphine <50 <50 ng/mL 01/11/2025 9:44 AM EDT [facility] Morphine Glucuronide <50 <50 ng/mL 12/21 9:44 AM EDT [facility] Naloxone <50 <50 ng/mL 01/11/2025 9:44 AM EDT [facility] Naloxone Glucuronide <50 <50 ng/mL 12/21 9:44 AM EDT [facility] Norbuprenorphine <10 <10 ng/mL 01/12/20 9:44 AM EDT [facility] Norbuprenorphine Glucuronide <50 <50 ng/mL 01/11/2025 9:44 AM EDT [facility] Nordiazepam <20 <20 ng/mL 01/11/2025 9:44 AM EDT [facility] Norfentanyl <2 <2 ng/mL 01/11/2025 9:44 AM EDT [facility] Normeperidine <50 <50 ng/mL 01/11/2025 9:44 AM EDT [facility] PCP Quant, Ur <50 <50 ng/mL 01/11/2025 9:44 AM EDT [facility] Phenobarbital <50 <50 ng/mL 01/11/2025 9:44 AM EDT [facility] Oxazepam <20 <20 ng/mL 01/11/2025 9:44 AM EDT [facility] Oxazepam Glucuronide <50 <50 ng/mL 12/21 9:44 AM EDT [facility] Oxycodone <50 <50 ng/mL 01/11/2025 9:44 AM EDT [facility] Oxymorphone <50 <50 ng/mL 01/11/2025 9:44 AM EDT [facility] Oxymorphone Glucuronide <50 <50 ng/mL 01/11/2025 9:44 AM EDT [facility] Secobarbital <50 <50 ng/mL 01/11/2025 9:44 AM EDT [facility] Tramadol <50 <50 ng/mL 01/11/2025 9:44 AM EDT [facility] Temazepam <20 <20 ng/mL 01/11/2025 9:44 AM EDT [facility] Temazepam Glucuronide <50 <50 ng/mL 01/11/2025 9:44 AM EDT [facility] Urine Urine specimen obtained by clean catch procedure / Unknown Non-blood Collection / Unknown 01/08/2025 1:38 PM EDT 01/08/2025 1:38 PM EDT Narrative [facility] - 01/11/2025 9:44 AM EDT This report is intended for use in clinical monitoring or management of patients. It is NOT intended for use in employment-related drug testing. For pain management, the absence of expected drug(s) and/or drug metabolite(s) may indicate non-compliance, inappropriate timing of specimen collection relative to drug administration, poor drug absorption, or limitations of testing. Interpretive questions should be directed to the laboratory. Test performed by LC-MS/MS at the [facility]. This test was developed and its performance characteristics determined by [facility]. It has not been cleared or approved by the FDA. The laboratory is regulated under CLIA as qualified to perform high-complexity testing. This test is used for clinical purposes. us Leslie Morrison DO LAB URINE ORDERABLES Final Result [facility] [address] [place] [address] from Last 3 Months Insurance [employer] Care Teams Beading Installer Relationship Specialty Start Date End Date Inna Serrano APRN [address] [place] [address] PCP - General 02/19/24 Ángela Millard APRN [address] [place] [address] Nurse Practitioner Neurosurgery 09/17/21
--- OUTSIDE RECORDS SUMMARY | 2025-01-21 14:13 | XMS_ITS | Encounter Summary ---
Author Organization [facility] Address [address] [place] [address] Care Team Providers Care Codifier Name Role Phone Ángela Millard FENCE RIDER Unavailable [phone] Inna Serrano APRN Primary Care Provider [phone] Reason for Visit * Reason Onset Date Comments HCN - Patient Message 12/09/2024 Encounter Details Date Type Department Care Team (Late st Contact Info) Description 12/09/2024 Telephone Physical [facility] [address] [place] [address] Leslie Suarez DO [address] [place] [address] HCN - Patient Message Social [...] for the fu * Telephone Encounter - Malena Edmond - 12/09/2024 9:16 AM EDT Clinical Concern/Question Reason for Call: Pt is calling to let you know he is going to see his neuro due to kidney functionsplease call to advise Best contact number: [phone] (mobile) Optimal time of day to reach caller: ANYTIME Additional comments/information from caller: None Note: Please do not reply to this message. Follow-up communication and further actions as a result of this message need to be communicated with the patient directly, if the patient is not active onMyChart. If the patient is active on MyChart, they will receive notification of the communication/outcome via Tabbert. documented in this encounter Plan of Treatment Upcoming Encounters Date Type Department Care Team (Late st Contact Info) Description 02/12/2025 3:00 PM EDT Office Visit [facility] [address] [place] [address] Adonis Prince LeslieDO [address] [place] [address] 04/08/2025 12:00 PM EST Office Visit [facility] Nephrology, Bone & Mineral Metabolism [address] [facility], [address] [place] [address] David Workman MD [address] [place] [address] 09/30/2025 10:10 AM EDT Appointment [facility] [address] [place] [address] 09/30/2025 11:30 AM EDT Office Visit [facility] [address] [facility], 2nd [place] [address] Aysha Crews MD [address] [place] [address] documented as of this encounter Visit Diagnoses Not on filedocumented in this encounter Additional Health Concerns Assessment Noted Time A fall risk assessment has been complete d for the patient 11/11/2024 1:29 PM EDT A Body Mass Index follow-up plan has been documented for the patient 11/11/2024 5:31 PM EDT documented as of this encounter Care Teams Codifier Relationship Specialty Start Date End Date Inna Serrano APRN [address] [place] [address] PCP - General 02/19/24 Ángela Millard APRN [address] [place] [address] Nurse Practitioner Neurosurgery 09/17/21 documented as of this encounter
--- OUTSIDE RECORDS SUMMARY | 2025-01-21 14:13 | XMS_ITS | Encounter Summary ---
Author Organization Healthcare Address [address] [place] [address] Care Team Providers Care Night Shift Name Role Phone Delmer Fritz MD Primary Care Provider [phone] Antwan Esparza MD Primary Care Provider + [phone] Ángela Millard AUGER PRESS OPERATOR Unavailable [phone] Inna Serrano APRN Primary Care Provider + [phone] Encounter Details Date Type Department Care Team (Late st Contact Info) Description 10/30/2012 Orders Only External Location [address] [place] [address] Provider, External Social History Tobacco Use Types [...] Rehabilitation Clinic at [facility] [address] [address] Leslie Suarez DO [address] [place] [address] 04/08/2025 12:00 PM EST Office Visit [facility] Nephrology, Bone & Mineral Metabolism [address] [facility], [address] [place] [address] David Workman MD [address] [place] [address] 09/30/2025 10:10 AM EDT Appointment [facility] [address] [place] [address] 09/30/2025 11:30 AM EDT Office Visit [facility] [address] [facility], 2nd [place] [address] Aysha Crews MD [address] [facility] [address] [place] [address] documented as of this encounter [...] on filedocumented in this encounter Care Teams Night Shift Relationship Specialty Start Date End Date Delmer Fritz MD [address] [facility] [address] [place] [address] PCP - General 10/02/20 12/13/20 Antwan Esparza MD [address] [place] [address] PCP - General 12/14/20 02/18/24 Inna Serrano APRN [address] [place] [address] PCP - General 02/19/24 Ángela Millard APRN [address] [facility] [address] [place] [address] Nurse Practitioner Neurosurgery 09/17/21 documented as of this encounter
--- OUTSIDE RECORDS SUMMARY | 2025-01-21 14:13 | XMS_ITS | Encounter Summary ---
Author Organization Healthcare Address [address] [place] [address] Care Team Providers Care Insulation Board Calender Operator Name Role Phone Ángela Millard AVIATION SAFETY INSPECTOR Unavailable [phone] Inna Serrano AVIATION SAFETY INSPECTOR Primary Care Provider [phone] Encounter Details Date Type Department Care Team (Late st Contact Info) Description 09/02/2024 Orders Only External Location [address] [place] [address] Provider, External Social History Tobacco Use Types [...] & Rehabilitation Clinic at [facility] [address] [place] [address] Leslie Suarez DO [address] [place] [address] 04/08/2025 12:00 PM EST Office Visit [facility] Nephrology, Bone & Mineral Metabolism [address] [facility], [address] [place] [address] David Workman MD [address] [place] [address] 09/30/2025 10:10 AM EDT Appointment [facility] [address] [place] [address] 09/30/2025 11:30 AM EDT Office Visit [facility] [address] [facility], 2nd [place] [address] Aysha Crews MD [address] [place] [address] documented as of this encounter Procedures Procedure Name Priority Date/Time Associated Diagnosis Comments XR MSK OUTSIDE IMAGES 09/02/2024 2:11 PM EDT documented in this encounter Results * XR MSK OUTSIDE IMAGES (09/02/2024 2:11 PM EDT) Anatomical Region Laterality Modality Radiographic Kendra ging 09/02/2024 2:11 PM EDT External Provider IMG XR PROCEDURES [...] documented as of this encounter Care Teams Insulation Board Calender Operator Relationship Specialty Start Date End Date Inna Serrano APRN [address] [place] [address] PCP - General 02/19/24 nÁgela Millard APRN [address] [place] [address] Nurse Practitioner Neurosurgery 09/17/21 documented as of this encounter
--- OUTSIDE RECORDS SUMMARY | 2025-01-21 14:13 | XMS_ITS | Encounter Summary ---
Author Organization Healthcare Address [address] [place] [address] Care Team Providers Care Information And Referral Director Name Role Phone Delmer Fritz MD Primary Care Provider [phone] Antwan Esparza MD Primary Care Provider + [phone] Ángela Millard TAPE FOLDING MACHINE OPERATOR Unavailable [phone] Inna Serrano APRN Primary Care Provider + [phone] Encounter Details Date Type Department Care Team (Late st Contact Info) Description 03/19/2015 Orders Only External Location [address] [place] [address] Provider, External Social History Tobacco Use Types [...] [facility] [address] [place] [address] Leslie Suarez DO [address] [place] [address] 04/08/2025 12:00 PM EST Office Visit [facility] Nephrology, Bone & Mineral Metabolism [address] [facility], [address] [place] [address] David Workman MD [address] [place] [address] 09/30/2025 10:10 AM EDT Appointment [facility] [address] [place] [address] 09/30/2025 11:30 AM EDT Office Visit [facility] [address] [facility], 2nd [place] [address] Aysha Crews MD [address] [facility] [address] [place] [address] documented as of this encounter [...] on filedocumented in this encounter Care Teams Information And Referral Director Relationship Specialty Start Date End Date Delmer Fritz MD [address] [facility] [address] [place] [address] PCP - General 10/02/20 12/13/20 Antwan Esparza MD [address] [place] [address] PCP - General 12/14/20 02/18/24 Inna Serrano APRN [address] [place] [address] PCP - General 02/19/24 Ángela Millard APRN [address] [place] [address] Nurse Practitioner Neurosurgery 09/17/21 documented as of this encounter
--- OUTSIDE RECORDS SUMMARY | 2025-01-21 14:13 | XMS_ITS | Encounter Summary ---
Author Organization Healthcare Address [address] [place] [address] Care Team Providers Care Broodmare Foreman Name Role Phone Antwan Esparza MD Primary Care Provider + [phone] Ángela Millard FRUIT PEELER Unavailable [phone] Inna Serrano FRUIT PEELER Primary Care Provider + [phone] Reason for Visit * Reason Onset Date Comments HCN - Rx Refill Request 04/11/2022 Encounter Details Date Type Department Care Team (Late st Contact Info) Description 04/11/2022 Refill [facility] [address] [place] [address] Leslie Suarez DO [address] [facility] [address] [place] [address] Chronic low back pain, unspecified [...] Miscellaneous Notes * Telephone Encounter - Yocasta Hartsuzie Hernandez - 04/11/2022 10:37 AM EST Medication Refill Request Medication Name & Dosage: Hydrocodone-acetaminophen 5-325MG Preferred Pharmacy & Location: [facility] [place], [place] Days of medication remaining (if under 3 days please aishwarya as urgent): 7 days Best contact number and optimal time of day to reach caller: [phone] Additional comments/information from caller: Note: Please do not reply to this message. Follow-up communication and further actions as a result of this message need to be communicated with the patient directly, if the patient is not active onMyChart. If the patient is active on MyChart, they will receive notification of the communication/outcome via Trunk Clubhart. documented in this encounter Plan of Treatment Upcoming Encounters Date Type Department Care Team (Late st Contact Info) Description 02/12/2025 3:00 PM EDT Office Visit [facility] [address] [place] [address] Leslie Suarez DO [address] [facility] [address] [place] [address] 04/08/2025 12:00 PM EST Office Visit [facility] Nephrology, Bone & Mineral Metabolism [address] [facility], [address] [place] [address] David Workman MD [address] [place] [address] 09/30/2025 10:10 AM EDT Appointment [facility] [address] [place] [address] 09/30/2025 11:30 AM EDT Office Visit [facility] [address] [facility], 2nd [place] [address] Aysha Crews MD [address] [place] [address] documented as of this encounter Visit Diagnoses Diagnosis Chronic low back pain, unspecified back pain laterality, unspecified whether sciatica present- Primary documented in this encounter Additional Health Concerns Assessment Noted Time A fall risk assessment has been complete d for the patient 01/31/2022 1:51 PM EDT documented as of this encounter Care Teams Broodmare Foreman Relationship Specialty Start Date End Date Antwan Esparza MD [address] [place] [address] PCP - General 12/14/20 02/18/24 Inna Serrano APRN [facility] [place] [address] PCP - General 02/19/24 Ángela Millard APRN [address] [place] [address] Nurse Practitioner Neurosurgery 09/17/21 documented as of this encounter
--- OUTSIDE RECORDS SUMMARY | 2025-01-21 14:13 | XMS_ITS | Encounter Summary ---
Author Organization Healthcare Address [address] [place] [address] Care Team Providers Care Steam Table Associate Name Role Phone Ángela Millard PENCIL MAKER Unavailable [phone] Inna Serrano PENCIL MAKER Primary Care Provider [phone] Encounter Details Date Type Department Care Team (Late st Contact Info) Description 08/08/2024 Orders Only External Location [address] [place] [address] Provider, External Social History Tobacco Use Types [...] [facility] [address] [place] [address] Leslie Suarez DO [address] [place] [address] 04/08/2025 12:00 PM EST Office Visit [facility] Nephrology, Bone & Mineral Metabolism [address] [facility], [address] [place] [address] David Workman MD [address] [place] [address] 09/30/2025 10:10 AM EDT Appointment [facility] [address] [place] [address] 09/30/2025 11:30 AM EDT Office Visit [facility] Res[facility] [address] [facility], 2nd [place] [address] Aysha Crews MD [address] [place] [address] documented as of this encounter [...] documented as of this encounter Care Teams Steam Table Associate Relationship Specialty Start Date End Date Inna Serrano APRN [address] [place] [address] PCP - General 02/19/24 Ángela Millard APRN [address] [place] [address] Nurse Practitioner Neurosurgery 09/17/21 documented as of this encounter
--- OUTSIDE RECORDS SUMMARY | 2025-01-21 14:13 | XMS_ITS | Encounter Summary ---
Author Organization [facility] Address [address] [place] [address] Care Team Providers Care Manager Culture Name Role Phone Antwan Esparza MD Primary Care Provider [phone] Ángela Millard GLASS PRODUCTION MACHINE OPERATOR Unavailable [phone] Inna Serrano APRN Primary Care Provider [phone] Encounter Details Date Type Department Care Team (Late Contact Info) Description 06/23/2023 Orders Only External Location [address] [place] [address] Andrew Borja, DO [address] [place] [address] [place] [id number] Social History Tobacco Use Types Packs/Day Years [...] Visit Physical Medicine & [facility] at [facility] [address] [place] [address] Leslie Suarez DO [address] [place] [address] 04/08/2025 12:00 PM EST Office Visit [facility] Nephrology, Bone & Mineral Metabolism [address] [facility], [address] [place] [address] David Workman MD [address] [place] [address] 09/30/2025 10:10 AM EDT Appointment [facility] [address] [place] [address] 09/30/2025 11:30 AM EDT Office Visit [facility] Ne[facility] Res[facility] [address] [facility], 2nd [place] [address] Aysha Crews MD [address] [facility] [address] [place] [address] documented as of this [...] documented as of this encounter Care Teams Manager Culture Relationship Specialty Start Date End Date Antwan Esparza MD [address] [place] [address] PCP - General 12/14/20 02/18/24 Inna Serrano APRN [address] [place] [address] PCP - General 02/19/24 Ángela Millard APRN [address] [place] [address] Nurse Practitioner Neurosurgery 09/17/21 documented as of this encounter
--- OUTSIDE RECORDS SUMMARY | 2025-01-21 14:13 | XMS_ITS | Encounter Summary ---
Author Organization [facility] Address [address] [place] [address] Care Team Providers Care Stone Operator Name Role Phone Antwan Esparza MD Primary Care Provider [phone] Ángela Millard LOCAL TELEPHONE OPERATOR Unavailable [phone] Inna Serrano APRN Primary Care Provider [phone] Encounter Details Date Type Department Care Team (Late Contact Info) Description 07/19/2023 Orders Only External Location [address] [place] [address] Andrew Borja, DO [address] [place] [address] [place] [id number] Social History Tobacco Use Types Packs/Day Years [...] Visit [facility] Rehabilitation [facility] at [facility] [address] [place] [address] Leslie Suarez DO [address] [place] [address] 04/08/2025 12:00 PM EST Office Visit [facility] Nephrology, Bone & Mineral Metabolism [address] [facility], [address] [place] [address] David Workman MD [address] [place] [address] 09/30/2025 10:10 AM EDT Appointment [facility] G Radiology [address] [place] [address] 09/30/2025 11:30 AM EDT Office Visit [facility] Head[facility] Neck & Respiratory [address] [facility], 2nd [place] [address] Aysha Crews MD [address] [facility] [address] [place] [address] documented as of this encounter [...] documented as of this encounter Care Teams Stone Operator Relationship Specialty Start Date End Date Antwan Esparza MD [address] [place] [address] PCP - General 12/14/20 02/18/24 Inna Serrano APRN [address] [place] [address] PCP - General 02/19/24 Ángela Millard APRN [address] [place] [address] Nurse Practitioner Neurosurgery 09/17/21 documented as of this encounter
--- OUTSIDE RECORDS SUMMARY | 2025-01-21 14:13 | XMS_ITS | Encounter Summary ---
Author Organization Healthcare Address [address] [place] [address] Care Team Providers Care Microsoft Bi Developer Name Role Phone Ángela Millard OPEN CLAIMS REPRESENTATIVE Unavailable [phone] Inna Serrano APRN Primary Care Provider [phone] Reason for Visit * Reason Onset Date Comments HCN - Patient Message 12/02/2024 Encounter Details Date Type Department Care Team (Late st Contact Info) Description 12/02/2024 Telephone Physical Medicine & Rehabilitation Clinic at [facility] [address] [facility] [place] [address] Leslie Suarez DO [address] [facility] [address] [place] [address] HCN - Patient Message Social [...] Patient is going to be seeing a library aide due to his PCP finding lesions on his neck, face, stomach,and arms. He is also needing to let her know he is having a thermal-image scan on his heart as advised by his associate professor of management and heart transplant doctors to determine if he is a candidate for a heart transplant. Best contact number: [phone] (mobile) Optimal time of day to reach [...] Visit [facility] at [facility] [address] [place] [address] Leslie Suarez DO [address] [place] [address] 04/08/2025 12:00 PM EST Office Visit [facility] Nephrology, Bone & Mineral Metabolism [address] [facility], [address] [place] [address] David Workman MD [address] [place] [address] 09/30/2025 10:10 AM EDT Appointment [facility] G Radiology [address] [place] [address] 09/30/2025 11:30 AM EDT Office Visit [facility] Head, Neck & Respiratory [address] [facility], 2nd [place] [address] Aysha Crews MD [address] [place] [address] documented as of this encounter Visit Diagnoses Not on filedocumented in this encounter Additional Health Concerns Assessment Noted Time A fall risk assessment has been complete d for the patient 11/11/2024 1:29 PM EDT A Body Mass Index follow-up plan has been documented for the patient 11/11/2024 5:31 PM EDT documented as of this encounter Care Teams Microsoft Bi Developer Relationship Specialty Start Date End Date Inna Serrano APRN [address] [place] [address] PCP - General 02/19/24 Ángela Millard APRN [address] [place] [address] Nurse Practitioner Neurosurgery 09/17/21 documented as of this encounter
--- OUTSIDE RECORDS SUMMARY | 2025-01-21 14:13 | XMS_ITS | Encounter Summary ---
Author Organization Healthcare Address [address] [place] [address] Care Team Providers Care Fiscal Accountant Name Role Phone Antwan Esparza MD Primary Care Provider + [phone] Ángela Millard APRN Unavailable [phone] Inna Serrano APRN Primary Care Provider + [phone] Encounter Details Date Type Department Care Team (Late Contact Info) Description 08/10/2021 Orders Only External Location [address] [place] [address] Provider, External Social History Tobacco Use Types [...] Upcoming Encounters Date Type Department Care Team ([facility] Contact Info) Description 02/12/2025 3:00 PM EDT Office Visit [facility] at [facility] [address] [place] [address] Leslie Suarez DO [address] [place] [address] 04/08/2025 12:00 PM EST Office Visit [facility] Nephrology, Bone & Mineral Metabolism [address] [facility], [address] [place] [address] David Workman MD [address] [place] [address] 09/30/2025 10:10 AM EDT Appointment [facility] G Radiology [address] [place] [address] 09/30/2025 11:30 AM EDT Office Visit [facility] Head[facility] Neck & Respiratory [address] [facility], 2nd [place] [address] Aysha Crews MD [address] [place] [address] documented as of this encounter [...] documented as of this encounter Care Teams Fiscal Accountant Relationship Specialty Start Date End Date Antwan Esparza MD [address] [place] [address] PCP - General 12/14/20 02/18/24 Inna Serrano APRN [facility] [place] [address] PCP - General 02/19/24 Ángela Millard APRN [address] [place] [address] Nurse Practitioner Neurosurgery 09/17/21 documented as of this encounter
--- OUTSIDE RECORDS SUMMARY | 2025-01-21 14:13 | XMS_ITS | Encounter Summary ---
Author Organization Healthcare Address [address] [place] [address] Care Team Providers Care Snack Stewardess Name Role Phone Antwan Esparza MD Primary Care Provider + [phone] Ángela Millard REPAIRER CYLINDER HEADS Unavailable [phone] Inna Serrano REPAIRER CYLINDER HEADS Primary Care Provider [phone] Reason for Visit * Reason Onset Date Comments HCN - Patient Message 10/08/2021 Encounter Details Date Type Department Care Team (Late st Contact Info) Description 09/27/2021 Refill [facility] [address] [place] [address] Leslie Suarez, DO [address] [facility] [address] [place] [address] Chronic low back pain, unspecified [...] optimal time of day to reach caller: [phone] Note: Please do not reply to this [...] optimal time of day to reach caller: [phone] Note: Please do not reply to this [...] & Dosage: Hydrocodone Preferred Pharmacy & Location: [facility] Days of medication remaining (if under 3 days please aishwarya as urgent): 4 Best contact number and optimal time of day to reach caller: [phone] Additional comments/information from caller: Pt asked if [...] [facility] at [facility] [address] [place] [address] Leslie Suarez DO [address] [place] [address] 04/08/2025 12:00 PM EST Office Visit [facility] [place] Nephrology, Bone & Mineral Metabolism [address] [facility], [address] [place] [address] David Workman MD [address] [place] [address] 09/30/2025 10:10 AM EDT Appointment [facility] G Radiology [address] [place] [address] 09/30/2025 11:30 AM EDT Office Visit [facility] Head[facility] Neck & Respiratory [address] [facility], 2nd [place] [address] Aysha Crews MD [address] [facility] [address] [place] [address] documented as of this encounter Visit Diagnoses Diagnosis Chronic low back pain, unspecified back pain laterality, unspecified whether sciatica present documented in this encounter Additional Health Concerns Assessment Noted Time A fall risk assessment has been complete d for the patient 09/17/2021 1:57 PM EDT documented as of this encounter Care Teams Snack Stewardess Relationship Specialty Start Date End Date Antwan Esparza MD [address] [place] [address] PCP - General 12/14/20 02/18/24 Inna Serrano APRN [address] [place] [address] PCP - General 02/19/24 Ángela Millard APRN [address] [facility] [address] [place] [address] Nurse Practitioner Neurosurgery 09/17/21 documented as of this encounter
--- OUTSIDE RECORDS SUMMARY | 2025-01-21 14:13 | XMS_ITS | Encounter Summary ---
Author Organization [facility] Address [address] [place] [address] Care Team Providers Care Forest Fire Lookout Name Role Phone Antwan Esparza MD Primary Care Provider + [phone] Ángela Millard PRODUCTION UTILITY WORKER Unavailable [phone] Inna Serrano PRODUCTION UTILITY WORKER Primary Care Provider [phone] Reason for Visit * Reason Onset Date Comments HCN - Rx Refill Request 12/27/2021 Encounter Details Date Type Department Care Team (Late st Contact Info) Description 12/27/2021 Telephone Physical Medicine & Rehabilitation Clinic at [facility] [address] [place] [address] Leslie Suarez DO [address] [facility] [address] [place] [address] HCN - Rx Refill Request [...] Hydrocodone and diclofenac Preferred Pharmacy & Location: [facility] Days of medication remaining (if under 3 days please aishwarya as urgent): 5 Best contact number and optimal time of day to reach caller: [phone] Additional comments/information from caller: Note: Please do not reply to this message. Follow-up communication and further actions as a result of this message need to be communicated with the patient directly, if the patient is not active onMyChart. If the patient is active on MyChart, they will receive notification of the communication/outcome via [employer] documented in this encounter Plan of Treatment Upcoming Encounters Date Type Department Care Team ([facility] st Contact Info) Description 02/12/2025 3:00 PM EDT Office Visit [facility] Rehabilitation Clinic at [facility] [address] [place] [address] Leslie Suarez DO [address] [facility] [address] [place] [address] 04/08/2025 12:00 PM EST Office Visit [facility] Nephrology, Bone & Mineral Metabolism [address] [facility], [address] [place] [address] David Workman MD [address] [place] [address] 09/30/2025 10:10 AM EDT Appointment [facility] G Radiology [address] [place] [address] 09/30/2025 11:30 AM EDT Office Visit [facility] Head, Neck & Respiratory [address] [facility], 2nd [place] [address] Aysha Crews MD [address] [facility] [address] [place] [address] documented as of this encounter Visit Diagnoses Diagnosis Chronic low back pain, unspecified back pain laterality, unspecified whether sciatica present documented in this encounter Additional Health Concerns Assessment Noted Time A fall risk assessment has been complete d for the patient 11/01/2021 9:34 AM EDT documented as of this encounter Care Teams Forest Fire Lookout Relationship Specialty Start Date End Date Antwan Esparza MD [address] [place] [address] PCP - General 12/14/20 02/18/24 Inna Serrano APRN [address] [place] [address] PCP - General 02/19/24 Ángela Millard APRN [address] [place] [address] Nurse Practitioner Neurosurgery 09/17/21 documented as of this encounter
--- OUTSIDE RECORDS SUMMARY | 2025-01-21 14:13 | XMS_ITS | Encounter Summary ---
Author Organization Healthcare Address [address] [place] [id number] Care Team Providers Care Public Transit Trolley Driver Name Role Phone Antwan Esparza MD Primary Care Provider + [phone] Ángela Millard BIOMED TECH Unavailable [phone] Inna Serrano BIOMED TECH Primary Care Provider + [phone] Reason for Visit * Reason Onset Date Comments HCN - Rx Refill Request 05/30/2022 Encounter Details Date Type Department Care Team (Late st Contact Info) Description 05/30/2022 Refill PFE SCHEDULING [address] [place] [address] Leslie Suarez DO [address] [facility] [address] [place] [address] Chronic low back pain, unspecified back pain [...] needed for pain Preferred Pharmacy & Location: [facility] [phone] Days of medication remaining (if under 3 days please aishwarya as urgent): 0 Best contact number and optimal time of day to reach caller: [phone] Additional comments/information from caller: Note: Please do not reply to this message. Follow-up communication and further actions as a result of this message need to be communicated with the patient directly, if the patient is not active onMyChart. If the patient is active on MyChart, they will receive notification of the communication/outcome via [employer]. documented in this encounter Plan of Treatment Upcoming Encounters Date Type Department Care Team (Late st Contact Info) Description 02/12/2025 3:00 PM EDT Office Visit [facility] [address] [place] [address] Leslie Suarez DO [address] [facility] [address] [place] [address] 04/08/2025 12:00 PM EST Office Visit [facility] Nephrology, Bone & Mineral Metabolism [address] [facility], [address] [place] [address] David Workman MD [address] [place] [address] 09/30/2025 10:10 AM EDT Appointment [facility] G Radiology [address] [place] [address] 09/30/2025 11:30 AM EDT Office Visit [facility] Head, Neck & Respiratory [address] [facility], 2nd [place] [address] Aysha Crews MD [address] [facility] [address] [place] [address] documented as of this encounter Visit Diagnoses Diagnosis Chronic low back pain, unspecified back pain laterality, unspecified whether sciatica present documented in this encounter Additional Health Concerns Assessment Noted Time A fall risk assessment has been complete d for the patient 04/25/2022 1:12 PM EST documented as of this encounter Care Teams Public Transit Trolley Driver Relationship Specialty Start Date End Date Antwan Esparza MD [address] [place] [address] PCP - General 12/14/20 02/18/24 Inna Serrano APRN [facility] [place] [address] PCP - General 02/19/24 Ángela Millard APRN [address] [place] [address] Nurse Practitioner Neurosurgery 09/17/21 documented as of this encounter
--- OUTSIDE RECORDS SUMMARY | 2025-01-21 14:13 | XMS_ITS | Encounter Summary ---
Author Organization [facility] Address [address] [place] [address] Care Team Providers Care Intranet Support Name Role Phone Antwan Esparza MD Primary Care Provider + [phone] Ángela Millard BRUSH SANDER Unavailable [phone] Inna Serrano BRUSH SANDER Primary Care Provider [phone] Encounter Details Date Type Department Care Team (Late Contact Info) Description 09/15/2023 Orders Only External Location [address] [place] [address] Idalia Torres, BRUSH SANDER [address] [place], [place] [id number] Social History Tobacco Use Types Packs/Day Years [...] Visit [facility] Clinic at [facility] [address] [place] [address] Adonis JimenezlesLeslie, DO [address] [place] [address] 04/08/2025 12:00 PM EST Office Visit [facility] Nephrology, Bone & Mineral Metabolism [address] [facility], [address] [place] [address] David Workman MD [address] [place] [address] 09/30/2025 10:10 AM EDT Appointment P[facility] G Radiology [address] [place] [address] 09/30/2025 11:30 AM EDT Office Visit [facility] Head[facility] Neck & Respiratory [address] 2nd [place] [address] Aysha Crews MD [address] [facility] [address] [place] [address] documented as of this encounter Procedures Procedure Name Priority Date/Time Associated Diagnosis Comments US THYROID 09/15/2023 12:36 PM EDT documented in this encounter Results * US Thyroid (09/15/2023 12:36 PM EDT) Anatomical Region Laterality Modality Thyroid, Neck Ultrasound 09/15/2023 12:3 6 PM EDT Idalia Torres APRN IM US PROCEDURES Final Result documented in this encounter Visit Diagnoses Not on filedocumented in this encounter Additional Health Concerns Assessment Noted Time A fall risk assessment has been complete d for the patient 06/21/2023 3:11 PM EST A Body Mass Index follow-up plan has been documented for the patient 06/23/2023 5:09 PM EST documented as of this encounter Care Teams Intranet Support Relationship Specialty Start Date End Date Antwan Esparza MD [address] [place] [address] PCP - General 12/14/20 02/18/24 Inna Serrano APRN [address] [place] [address] PCP - General 02/19/24 Ángela Millard APRN [address] [place] [address] Nurse Practitioner Neurosurgery 09/17/21 documented as of this encounter
== END 2025-01-21 23:59 | disposition home or self-care (01) ==
LOC: RAD 14:09
PROVIDERS: PCP Nurse Practitioner; Visit Provider Student in an Organized Health Care Education/Training Program
DX: N18.31 Chronic kidney disease, stage 3a (principal)
CPT/HCPCS: 76770

== ENCOUNTER 2025-02-14 13:53 | Outpatient (CLI) | payer MEDICAID, SELFPAY ==
--- OUTSIDE RECORDS SUMMARY | 2024-04-27 17:00 | XMS_ITS ---
Author Organization [facility] Address [address] [place] [address] Care Team Providers Care Hand Tool Filer Name Role Phone Chayo Morrison Primary Care Provider [phone] Jared Philippe Unavailable Migration, Provider Unavailable Unavailable Allergies Allergen (clinical drug ingredient) Drug/Non Drug Allergy documented on EMR Reaction Allergy Type Onset Date Status IVP DYE (uncoded) anaphylaxis Allergy Active Non-steroidal anti-inflammatory agent (FN) NAIDS (uncoded) anaphylaxis Allergy Active Steroid STEROID (uncoded) anaphylaxis Allergy [facility] Encounter Medications Medication SIG (Take, Route, [...] review and pick correct strength[facility]ulat [facility]. If intended option is not shown, [...] Diagnosis Hakan Fry [address] [place] [address] 04/27/2024 Provider Migration Plan Of Treatment No Information Progress Notes * Luca KAUFFMAN DDOB: [birth year] (59 yo M)Acc No.[id number]:04/27/2024 Patient: Luca Jacobo Provider: Catalina neil Migration :1965 A ge:58 Y S ex:Male Date:04/27/2024 Address:[address], [facility], [id number] Pcp:Chayo Morrison Subjective: * Chief Complaints: [facility] * Medications: T akingNitroglycerin 0.4 MG Tablet Sublingual 1 tab(s) sublingually every 5 minutes , Notes to Pharmacist: PRNLisinopril 10 MG Tablet 1 tab(s) orally once a day Losartan Potassium 50 MG Tablet 1 tab(s) orally once a day EPINEPHrine 0.3 MG KIT DIRECTED INTRAMUSCULARLY ONCE , Notes to Pharmacist: *Please review and pick correct strength-formulation from [email or web address] options. If intended option is not shown, [...] Electronic signature of Prov ider Migration on 02/14/2025 at 01:58 PM EDT Sign off status: Pending * Provider: Catalina neil Migration Date: 1 06/28/2023 Generated for Laurie johnson/Jovanna/Felixitting on: 0 02/14/2025 01:58 PM EDT
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
--- OUTSIDE RECORDS SUMMARY | 2025-01-29 10:32 | XMS_ITS | Encounter Summary ---
[facility] Organization [facility] Address [address] [place] [address] Care Team Providers Care Ticket Clerk Name Role Phone Delmer Fritz MD Primary Care Provider [phone] Reason for Referral * Cardiac Stress Testing (Routine) - Closed Specialty Diagnoses / Procedures Referred By Ramyaac t Referred To Contact Diagnoses Chest pain, precordial Procedures Stress test with myocardial perfusion one day Antwan Armstrong MD [address] [place] [address] Phone: tel: fax: Referral ID Status Reason Start Date Expiration Date Visits Re quested Visits Authorized [id number] Closed 11/13/2024 02/12/2026 4 2 Reason for Visit * Cardiac Stress Testing (Routine) - Closed Specialty Diagnoses / Procedures Referred By Cortez johnson Referred To Contact Diagnoses Chest pain, precordial Procedures Stress test with myocardial perfusion one day Antwan Armstrong MD [address] [place], [place] [id number] Phone: tel: fax: Referral ID Status Reason Start Date Expiration Date Visits Re quested Visits Authorized [id number] Closed 11/13/2024 02/12/2026 4 2 Encounter Details Date Type Department Care Team (Latest Contact Info) Description 01/29/2025 10:32 AM EDT - 01/29/2025 11:59 PM EDT Hospital Encounter 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 NURSE REVIEWER [address] [place] [address] Emir Morales MD [address] [place], [place] [id number] Chest pain, unspecified type; Abnormal nuclear stress test 02/17/2025 8:00 AM EDT - 02/17/2025 9:00 AM EDT Surgery [facility] NURSE REVIEWER [address] [place] [address] Emir Morales MD [address] [place], [place] [id number] Left Heart Cath [35645 (CPT )] Scheduled Procedures Name Priority Associated Diagnoses Date/Ti me LEFT HEART CATH w/cors Chest pain, unspecified type Abnormal nuclear stress test documented as of this encounter Procedures Procedure Name Priority Date/Time Associated Diagnosis Comments STRESS TEST, REGADENOSON W MYOCARDIAL PERFUSION SPECT (MULTI STUDY) Routine 01/29/2025 12:58 PM EDT Chest pain, precordial documented in this encounter Results * STRESS TEST, REGADENOSON W MYOCARDIAL PERFUSION SPECT (MULTI STUDY) (01/29/2025 12:58 PM EDT) [facility] CV STRESS PROTOCOL 1 Pharmacologic Stage 1 1.0 Duration Min Stage 1 1 Duration Sec Stage 1 0 Stress Dose Regadenoson Stage 1 0.40 Stress Comments Stage 1 10 sec bolus injection Stage 2 2.0 Duration Min Stage 2 1 Duration Sec Stage 2 0 Stage 3 3.0 Duration Min Stage 3 1 Duration Sec Stage 3 0 Stage 4 4.0 Duration Min Stage 4 1 Duration Sec Stage 4 0 Target HR (85%) 139 bpm Max. Pred. HR (100%) 163 bpm Exercise duration (min) 4 min Exercise duration (sec) 0 sec Estimated workload 1.0 METS HR Stage 1 76 O2 Stage 1 95 HR Stage 2 86 BP Stage 2 124/86 O2 Stage 2 98 HR Stage 3 78 O2 Stage 3 97 HR Stage 4 80 BP Stage 4 164/118 O2 Stage 4 97 Baseline HR 72 bpm Baseline BP 166/104 mmHg O2 sat rest 95 % Peak HR 89 bpm Peak BP 124/86 mmHg O2 sat peak 98 % Recovery HR 79 bpm Recovery BP 158/104 mmHg Recovery O2 96 % Percent Max Pred HR 54.60 % Percent Target HR 64 % CV REST NUCLEAR ISOTOPE DOSE 9.8 mCi CV STRESS NUCLEAR ISOTOPE DOSE 31.8 mCi Nuc Stress EF 71 % Anatomical Region Laterality Modality Nuclear Medicine Narrative 01/30/2025 11:50 AM EDT Myocardial perfusion imaging indicates small infarction of the inferolateral wall with no significant ischemia noted. Left ventricular ejection fraction is hyperdynamic (Calculated EF > 70%). Study Impression Myocardial perfusion imaging indicates a located in the inferior wall and lateral wall with no significant ischemia noted. Rest Perfusion Defect 1 There is a defect present in the mid inferior wall, mid inferolateral wall and apical inferior wall. Stress Perfusion Defect 1 There is a defect present in the mid inferior wall, mid inferolateral wall and apical inferior wall. Nuclear Study Description A 1-day rest/stress protocol myocardial perfusion imaging study was performed. A 20 G peripheral IV was started in the right antecubital fossa. While at rest, the patient was injected intravenously with 9.8 mCi of technetium sestamibi at 11:00 EDT. Regadenoson (0.4 mg / 5 mL) was given intravenously over approximately 10 seconds followed by 5 mL flush of saline according to protocol. While at peak stress, the patient was injected intravenously with 31.8 mCi of technetium sestamibi at 12:45 EDT. The total amount of radiation received in the study is about 12.56 mSv. Rest ECG Baseline ECG of normal sinus rhythm noted at rest. PACs and PVCs noted. Stress ECG Stress ECG of normal sinus rhythm noted. There was no ST segment deviation noted during stress. Arrhythmias during stress: occasional PACs, rare PVCs. Stress ECG was interpretable. Ventricle Size / Description Left ventricular ejection fraction is hyperdynamic (Calculated EF > 70%). Normal LV wall motion noted. Stress Description A pharmacological stress test was performed using regadenoson without low-level exercise. The patient reached the end of the protocol. The patient reported chest discomfort and dizziness during the stress test. Recovery ECG During recovery, the patient complained of no significant symptoms following stress. Sinus rhythm was noted during recovery. Arrhythmias during recovery: occasional PAC's, occasional PVC's. Test Reception Centre Manager ECG [place] Antwan Armstrong MD CV STRESS ORDERABLES Final Result documented in this encounter Visit Diagnoses Diagnosis Chest pain, precordial Precordial pain Chest pain, unspecified type Abnormal nuclear stress test Chest pain, unspecified type Abnormal nuclear stress test documented in this encounter Administered Medications Inactive Administered Medications - up to 3 most recent administrations Medication Order MAR Action Action Date Dose Rate Site technetium sestamibi (CARDIOLITE) injection 1 dose 1 dose, Intravenous, Once in Imaging, On Mon01/29/25 at 1100, For 1 dose, Millicuries: 9.8 Given 01/29/2025 11:00 AM EDT 1 dose technetium sestamibi (CARDIOLITE) injection 1 dose 1 dose, Intravenous, Once in Imaging, On Mon01/29/25 at 1332, For 1 dose, Millicuries: 31.8 Given 01/29/2025 12:45 PM EDT 1 dose documented in this encounter Care Teams Ticket Clerk Relationship Specialty Start Date End Date Delmer Frizt MD [address] [place] [address] PCP - General Family Medicine 08/07/24 documented as of this encounter
--- OUTSIDE RECORDS SUMMARY | 2025-01-29 12:15 | XMS_ITS | Encounter Summary ---
[facility] Address [address] [place] [address] Care Team Providers Care Vp Design Name Role Phone Delmer Fritz MD Primary Care Provider [phone] Reason for Visit * Cardiac Stress Testing (Routine) - Closed Specialty Diagnoses / Procedures Referred By Cortez johnson Referred To Contact Diagnoses Chest pain, precordial Procedures Stress test with myocardial perfusion one day Antwan Armstrong MD [address] [address] Phone: tel: fax: Referral ID Status Reason Start Date Expiration Date Visits Re quested Visits Authorized [id number] Closed 11/13/2024 02/12/2026 4 2 Encounter Details Date Type Department Care Team (Latest Contact Info) Description 01/29/2025 12:15 PM EDT - 01/29/2025 11:59 PM EDT Hospital Encounter [facility] [address] [place] [address] Discharge Disposition: Home or Self Care Social [...] 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 Not on file Not on f ile documented as of this encounter Last Filed Vital Signs Vital Sign Reading Time Taken Comments Blood Pressure - - Pulse - - Temperature - - Respiratory Rate - - Oxygen Saturation - - Inhaled Oxygen Concentration - - Weight 115 kg (253 lb) 01/29/2025 12:35 PM EDT Height 182.9 cm (6') 01/29/2025 12:35 PM EDT Body Mass Index 34.31 01/29/2025 12:35 PM EDT documented in this encounter Medications at Time of Discharge [...] Description 02/17/2025 8:00 AM EDT Hospital Encounter [facility] CUSTOMER SERVICE ATTENDANT [address] [place] [address] Emir Morales MD [address] [facility] [address] [place] [address] Chest pain, unspecified type; Abnormal nuclear stress test 02/17/2025 8:00 AM EDT - 02/17/2025 9:00 AM EDT Surgery [facility] CUSTOMER SERVICE ATTENDANT [address] [place] [address] Emir Morales MD [address] [place] [address] Left Heart Cath [[id number] (CPT )] Scheduled Procedures Name Priority Associated Diagnoses Date/Ti me LEFT HEART CATH w/cors Chest pain, unspecified type Abnormal nuclear stress test documented as of this encounter Procedures Procedure Name Priority Date/Time Associated Diagnosis Comments STRESS TEST, REGADENOSON W MYOCARDIAL PERFUSION SPECT (MULTI STUDY) Routine 01/29/2025 12:58 PM EDT Chest pain, precordial documented in this encounter Visit Diagnoses Not on filedocumented in this encounter Administered Medications Inactive Administered Medications - up to 3 most recent administrations Medication Order MAR Action Action Date Dose Rate Site regadenoson (LEXISCAN) injection 0.4 mg 0.4 mg, Intravenous, Once, On Mon01/29/25 at 1242, For 1 dose, Administer over approximately 10 seconds. Given 01/29/2025 12:44 PM EDT 0.4 mg documented in this encounter Care Teams Vp Design Relationship Specialty Start Date End Date Delmer Fritz MD [address] [place] [id number] PCP - General Family Medicine 08/07/24 documented as of this encounter
--- OUTSIDE RECORDS SUMMARY | 2025-02-14 13:56 | XMS_ITS | Encounter Summary ---
Author Organization Healthcare Address [address] [place] [address] Care Team Providers Care Hospice Volunteer Coordinator Name Role Phone Delmer Fritz MD Primary Care Provider [phone] Antwan Esparza MD Primary Care Provider [phone] Ángela Millard THREADING MACHINE FEEDER AUTOMATIC Unavailable [phone] Inna Serrano APRN Primary Care Provider [phone] Encounter Details Date Type Department Care Team (Late st Contact Info) Description 09/01/2020 Orders Only External Location [address] [place] [address] Provider, External Social History Tobacco Use Types [...] Description 02/19/2025 3:20 PM EDT Office Visit Physical Medicine & Rehabilitation Clinic at [facility] [address] [place] [address] Leslie Suarez DO [address] [place] [address] 04/08/2025 12:00 PM EST Office Visit Professional [facility] Nephrology, Bone & Mineral Metabolism [address] [facility] [place] [address] David Workman MD [address] [place] [id number] 09/30/2025 10:10 AM EDT Appointment [facility] Radiology [address] [place] [address] 09/30/2025 11:30 AM EDT Office Visit [facility] Head, Neck & Respiratory [address] [facility] 2nd [place] [address] Aysha Crews MD [address] [place] [address] documented as of this encounter Procedures Procedure [...] on filedocumented in this encounter Care Teams Hospice Volunteer Coordinator Relationship Specialty Start Date End Date Delmer Fritz MD [address] [facility] [address] [place] [address] PCP - General 10/02/20 12/13/20 Antwan Esparza MD [address] [place] [address] PCP - General 12/14/20 02/18/24 Inna Serrano APRN [address] [place] [address] PCP - General 02/19/24 Ángela Millard APRN [address] [place] [address] Nurse Practitioner Neurosurgery 09/17/21 documented as of this encounter
--- OUTSIDE RECORDS SUMMARY | 2025-02-14 13:56 | XMS_ITS | Encounter Summary ---
Author Organization Healthcare Address [address] [place] [address] Care Team Providers Care Wash House Worker Name Role Phone Antwan Esparza MD Primary Care Provider [phone] Ángela Millard SALVAGE ENGINEERING TECHNICIAN Unavailable [phone] Inna Serrano APRN Primary Care Provider + [phone] Encounter Details Date Type Department Care Team (Late Contact Info) Description 12/24/2020 Orders Only External Location [address] [place] [address] Provider, External Social History Tobacco Use Types [...] Department Care Team (Late Contact Info) Description 02/19/2025 3:20 PM EDT Office Visit [facility] [address] [place] [address] Leslie Suarez DO [address] [place] [address] 04/08/2025 12:00 PM EST Office Visit Professional [facility] Nephrology, Bone & Mineral Metabolism [address] [facility], [address] [place] [address] aDvid Workman MD [address] [place] [address] 09/30/2025 10:10 AM EDT Appointment [facility] Radiology [address] [place] [address] 09/30/2025 11:30 AM EDT Office Visit [facility] Head, Neck & Respiratory [address] [place] [address] Aysha Crews MD [address] [place] [address] documented as of this encounter [...] documented as of this encounter Care Teams Wash House Worker Relationship Specialty Start Date End Date Antwan Esparza MD [address] [place] [address] PCP - General 12/14/20 02/18/24 Inna Serrano APRN [facility] [place] [address] PCP - General 02/19/24 Ángela Millard APRN [address] [place] [address] Nurse Practitioner Neurosurgery 09/17/21 documented as of this encounter
--- OUTSIDE RECORDS SUMMARY | 2025-02-14 13:56 | XMS_ITS | Clinical Summary ---
[facility] [address] [place] [address] Care Team Providers Care Pipe Coverer Helper Name Role Phone Delmer Fritz MD Primary Care Provider [phone] Allergies Active Allergy Reactions Criticality Noted Date [...] Active Problems Problem Noted Date Diagnosed Date Chest pain 02/05/2025 Abnormal nuclear stress test 02/05/2025 Bilateral pulmonary nodules (Largest 8mm in LLL) Incidental 08/21/2018 Tobacco abuse (Resolved x 1 month) 08/21/2018 Stage IV (very severe) COPD 08/21/2018 H/O Asbestos exposure 08/21/2018 Chronic back pain (Chronic narcotics) 08/21/2018 Encounters Date Type Department Care Team Description 02/12/2025 Telephone [facility] CARDIOLOGY [address] [place] [address] Emir Morales MD 02/10/2025 Telephone [facility] [address] [place] [address] Emir Morales MD 01/29/2025 12:15 PM EDT - 01/29/2025 11:59 PM EDT Hospital Encounter [facility] CARDIOVASCULAR LAB [address] [place] [address] Discharge Disposition: Home or Self Care 01/29/2025 10:32 AM EDT - 01/29/2025 11:59 PM EDT Hospital Encounter [facility] CARDI[facility] LAB [address] [place] [address] Chest pain, precordial Discharge Disposition: Home or Self Care 01/29/2025 Travel from Last 3 Months Immunizations Immunization [...] 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 Not on file Not [...] Mass Index 34.31 01/29/2025 12:35 PM EDT Plan of Treatment Upcoming Encounters Date Type Department Care Team (Late st Contact Info) Description 02/17/2025 8:00 AM EDT Hospital Encounter [facility] CERTIFIED FAMILY MEDIATOR [address] [place] [address] Emir Morales MD [address] [facility] [address] [place] [address] Chest pain, unspecified type; Abnormal nuclear stress test 02/17/2025 8:00 AM EDT - 02/17/2025 9:00 AM EDT Surgery [facility] CERTIFIED FAMILY MEDIATOR [address] [place] [address] Emir Morales MD [address] [place] [address] Left Heart Cath [36742 (CPT )] Scheduled Procedures Name Priority Associated Diagnoses Date/Ti me LEFT HEART CATH w/cors Chest pain, unspecified type Abnormal nuclear stress test Health Maintenance Due Date Last Done Comments [...] - PPSV23) 04/01/2024 02/05/2024, 05/23/2018 INFLUENZA VACCINE 12/20/2024 05/23/2018, 03/01/2011 Procedures Procedure Name Priority Date/Time Associated Diagnosis Comments STRESS TEST, REGADENOSON W MYOCARDIAL PERFUSION SPECT (MULTI STUDY) Routine 01/29/2025 12:58 PM EDT Chest pain, precordial from Last 3 Months Results * STRESS TEST, REGADENOSON W MYOCARDIAL PERFUSION SPECT (MULTI STUDY) (01/29/2025 12:58 PM EDT) CV STRESS PROTOCOL 1 Pharmacologic Stage 1 [...] during recovery: occasional PAC's, occasional PVC's. Test Vp Sales ECG [place] Antwan Armstrong MD CV STRESS ORDERABLES Final Result from Last 3 Months Insurance [facility] MEDICAID Care Teams Pipe Coverer Helper Relationship Specialty Start Date End Date Delmer Fritz MD [address] [place] [address] PCP - General Family Medicine 08/07/24
--- OUTSIDE RECORDS SUMMARY | 2025-02-14 13:56 | XMS_ITS | Clinical Summary ---
Author Organization [facility] Address [address] [place] [address] Phone Care Team Providers Care Engineering Teacher Name Role Phone Unavailable Primary Care Provider [...] COVID-19 Vaccine (1 - 2023-2 5 season) 2025 Influenza Vaccine (#1) 2025 Meningococcal B Vaccine Aged Out No l onger eligible based on patient's age to complete this topic Insurance [employer] [place] [id number] [facility] [id number] [facility]
--- OUTSIDE RECORDS SUMMARY | 2025-02-14 13:57 | XMS_ITS | Encounter Summary ---
Author Organization [facility] Address [address] [place] [address] Care Team Providers Care Wool Sacker Name Role Phone Ángela Millard VICE PRESIDENT UNDERWRITING Unavailable [phone] Inna Serrano APRN Primary Care Provider [phone] Reason for Visit * Reason Onset Date Comments Med Refill 02/10/2025 Encounter Details Date Type Department Care Team (Late st Contact Info) Description 02/10/2025 Refill Physical Medicine & Rehabilitation [facility] at [facility] [address] [facility] [place] [address] Dee Dee Jenkins MD [address] [facility] [address] [place] [address] Social History Tobacco Use Types [...] [facility] at [facility] [address] [place] [address] Leslie Suarez DO [address] [place] [address] 04/08/2025 12:00 PM EST Office Visit [facility] Nephrology, Bone & Mineral Metabolism [address] [facility], [address] [place] [address] David Workman MD [address] [place] [address] 09/30/2025 10:10 AM EDT Appointment [facility] Radiology [address] [place] [address] 09/30/2025 11:30 AM EDT Office Visit [facility] Res[facility] [address] 2nd [place] [address] Aysha Crews MD [address] [place] [address] documented as of this encounter Visit Diagnoses Not on filedocumented in this encounter Additional Health Concerns Assessment Noted Time A fall risk assessment has been complete d for the patient 01/08/2025 1:58 PM EDT A Body Mass Index follow-up plan has been documented for the patient 01/08/2025 3:33 PM EDT documented as of this encounter Care Teams Wool Sacker Relationship Specialty Start Date End Date Inna Serrano APRN [address] [place], [place] [address] PCP - General 02/19/24 Ángela Millard APRN [address] [place] [address] Nurse Practitioner Neurosurgery 4/29/22 documented as of this encounter
--- OUTSIDE RECORDS SUMMARY | 2025-02-14 13:57 | XMS_ITS | Encounter Summary ---
Author Organization Healthcare Address [address] [place] [id number] Care Team Providers Care Pattern Ruler Name Role Phone Ángela Millard ASSISTANT COMMISSIONER Unavailable [phone] Inna Serrano ASSISTANT COMMISSIONER Primary Care Provider [phone] Encounter Details Date Type Department Care Team (Late st Contact Info) Description 02/03/2025 Telephone [facility] [address], 2nd [place] [address] Aysha Crews MD [address] [place] [address] Social History Tobacco Use Types [...] Telephone Encounter - Alison Jonas RN - 02/04/2025 10:05 AM EDT RN LVM for pt relaying that Dr. Crews was made aware of the scans that pt requested to be sent over and that the results of those are best handled by the physician who ordered them but, that Dr. Crews appreciates him sending them along so she is kept informed. RN left number to call back if pt would like to. * Telephone Encounter - Marissa Cloud - 02/04/2025 9:50 AM EDT Per pt call to [facility], pt had imaging done at [facility] and sent thhe reports for those images but not the images themselves. Pt calling to update us that they are now working on sending the actual images and to be on the lookout for those. [phone] * Telephone Encounter - Sheryl Keyes - 02/03/2025 1:27 PM EDT Patient recently had a stress test and a scan of his heart at [facility] in [place], [place]. Pt wanted to make Dr. Crews aware and see if she would be able to take a look at those images becausethe report says the patient has mild mid inferior wall damage, mid apical wall damage. Please advise donovan. documented in this encounter Plan of Treatment Upcoming Encounters Date Type Department Care Team (Late st Contact Info) Description 02/19/2025 3:20 PM EDT Office Visit [facility] at [facility] [address] [place] [address] Leslie Suarez DO [address] [facility] [address] [place] [address] 04/08/2025 12:00 PM EST Office Visit [facility] Nephrology, Bone & Mineral Metabolism [address] [facility], [address] [place] [address] David Workman MD [address] [place] [address] 09/30/2025 10:10 AM EDT Appointment [facility] Radiology [address] [place] [address] 09/30/2025 11:30 AM EDT Office Visit [facility] Head[facility] Neck & Respiratory [address] [facility], 2nd [place] [address] Aysha Crews MD [address] [place] [address] documented as of this encounter Visit Diagnoses Not on filedocumented in this encounter Additional Health Concerns Assessment Noted Time A fall risk assessment has been complete d for the patient 01/08/2025 1:58 PM EDT A Body Mass Index follow-up plan has been documented for the patient 01/08/2025 3:33 PM EDT documented as of this encounter Care Teams Pattern Ruler Relationship Specialty Start Date End Date Inna Serrano APRN [address] [place] [address] PCP - General 02/19/24 Ángela Millard APRN [address] [place] [address] Nurse Practitioner Neurosurgery 09/17/21 documented as of this encounter
--- OUTSIDE RECORDS SUMMARY | 2025-02-14 13:57 | XMS_ITS | Encounter Summary ---
Author Organization Healthcare Address [address] [place] [address] Care Team Providers Care Chair Inspector And Leveler Name Role Phone Ángela Millard Ev NATURAL RESOURCE OFFICER Unavailable [phone] Inna Serrano NATURAL RESOURCE OFFICER Primary Care Provider [phone] Reason for Visit * Reason Onset Date Comments HCN Status Update Call #1 02/05/2025 Encounter Details Date Type Department Care Team (Late st Contact Info) Description 02/05/2025 Telephone Physical Medicine & Rehabilitation Clinic at [facility] [address] [place] [place] [address] Leslie Suarez DO [address] [facility] [address] [place] [address] HCN Status Update Call #1 [...] encounter Miscellaneous Notes * Telephone Encounter - Macy Green - 02/06/2025 9:08 AM EDT Status Update Call #1 1st call regarding the status of the initial request. Best contact number: [phone] (mobile) Optimal time of day to reach caller: ANYTIME Additional comments/information from caller: Pt is going to be in the hospital starting tomorrow and he is wanting to get his TH appt rescheduled. He's requesting a call back today. Note: Please do not reply to this message. Follow-up communication and further actions as a result of this message need to be communicated with the patient directly, if the patient is not active onMyChart. If the patient is active on MyChart, they will receive notification of the communication/outcome via MyChart. * Telephone Encounter - Germaine Hart - 02/05/2025 2:33 PM EDT Clinical Concern/Question Reason for Call: [facility] patient needing a return call to reschedule upcoming TH appt with [facility] Best contact number: [phone] (mobile) Optimal time of day to reach caller: ANYTIME Additional comments/information from caller: None Note: Please do not reply to this message. Follow-up communication and further actions as a result of this message need to be communicated with the patient directly, if the patient is not active onMyChart. If the patient is active on MyChart, they will receive notification of the communication/outcome via Woven Inchart. documented in this encounter Plan of Treatment Upcoming Encounters Date Type Department Care Team (Late st Contact Info) Description 02/19/2025 3:20 PM EDT Office Visit [facility] [address] [place] [address] Leslie Suarez DO [address] [place] [address] 04/08/2025 12:00 PM EST Office Visit [facility] Nephrology, Bone & Mineral Metabolism [address] [facility], [address] [place] [address] David Workman MD [address] [place] [address] 09/30/2025 10:10 AM EDT Appointment [facility] G Radiology [address] [place] [address] 09/30/2025 11:30 AM EDT Office Visit [facility] Head[facility] Neck & Respiratory [address] [facility], 2nd [place] [address] Aysha Crews MD [address] [place] [address] documented as of this encounter Visit Diagnoses Not on filedocumented in this encounter Additional Health Concerns Assessment Noted Time A fall risk assessment has been complete d for the patient 01/08/2025 1:58 PM EDT A Body Mass Index follow-up plan has been documented for the patient 01/08/2025 3:33 PM EDT documented as of this encounter Care Teams Chair Inspector And Leveler Relationship Specialty Start Date End Date Inna Serrano APRN [address] [place] [address] PCP - General 02/19/24 Ángela Milalrd APRN [address] [place] [address] Nurse Practitioner Neurosurgery 09/17/21 documented as of this encounter
--- OUTSIDE RECORDS SUMMARY | 2025-02-14 13:57 | XMS_ITS | Encounter Summary ---
Author Organization Healthcare Address [address] [place] [address] Care Team Providers Care Automotive Service Manager Name Role Phone Ángela Millard DEPARTMENT HELPER Unavailable [phone] Inna Srerano APRN Primary Care Provider [phone] Reason for Visit * Reason Onset Date Comments HCN - Patient Message 02/03/2025 Encounter Details Date Type Department Care Team (Late st Contact Info) Description 02/03/2025 Telephone Physical Medicine & Rehabilitation Clinic at [facility] [address] [facility] [place] [address] Leslie Suarez DO [address] [facility] [address] [place] [address] HCN - Patient Message Social [...] Telephone Encounter - Leslie Suarez DO - 02/03/2025 5:37 PM EDT Thanks for the updates. * Telephone Encounter - Carissa Fried - 02/03/2025 1:22 PM EDT Clinical Concern/Question SANDIE Reason for Call: Patient calling stating he had a scan done yesterday of his heart that showed twoholes at the bottom of the heart . He was told he has chronic heart failure and congestive heart failure. [facility]. Patient wants Dr. Morrison to know. Best contact number: [phone] (mobile) Optimal time of day to reach caller: ANYTIME Additional comments/information from caller: None Note: Please do not reply to this message. Follow-up communication and further actions as a result of this message need to be communicated with the patient directly, if the patient is not active onMyChart. If the patient is active on MyChart, they will receive notification of the communication/outcome via [employer]. documented in this encounter Plan of Treatment Upcoming Encounters Date Type Department Care Team (Late st Contact Info) Description 02/19/2025 3:20 PM EDT Office Visit [facility] Rehabilitation Clinic at [facility] [address] [place] [address] Leslie Suarez DO [address] [facility] [address] [place] [address] 04/08/2025 12:00 PM EST Office Visit [facility] Nephrology, Bone & Mineral Metabolism [address], [address] [place] [address] David Workman MD [address] [place] [address] 09/30/2025 10:10 AM EDT Appointment [facility] G Radiology [address] [place] [address] 09/30/2025 11:30 AM EDT Office Visit [facility] Head[facility] Neck & Respiratory [address] 2nd [place] [address] Aysha Crews MD [address] [place] [address] documented as of this encounter Visit Diagnoses Not on filedocumented in this encounter Additional Health Concerns Assessment Noted Time A fall risk assessment has been complete d for the patient 01/08/2025 1:58 PM EDT A Body Mass Index follow-up plan has been documented for the patient 01/08/2025 3:33 PM EDT documented as of this encounter Care Teams Automotive Service Manager Relationship Specialty Start Date End Date Inna Serrano APRN [facility] [place] [address] PCP - General 02/19/24 Ángela Millard APRN [address] [place] [address] Nurse Practitioner Neurosurgery 09/17/21 documented as of this encounter
--- OUTSIDE RECORDS SUMMARY | 2025-02-14 13:57 | XMS_ITS | Encounter Summary ---
Author Organization Healthcare Address [address] [place] [address] Care Team Providers Care Instructional Technology Teacher Name Role Phone Antwan Esparza MD Primary Care Provider [phone] Ángela Millard INDUSTRIAL HYGIENE TECHNICIAN Unavailable [phone] Inna Serrano APRN Primary Care Provider [phone] Encounter Details Date Type Department Care Team (Late st Contact Info) Description 12/20/2023 Orders Only External Location [address] [place] [address] Provider, External Social History Tobacco Use Types [...] at [facility] [address] [place] [address] Leslie Suarez DO [address] [facility] [address] [place] [address] 04/08/2025 12:00 PM EST Office Visit [facility] Nephrology, Bone & Mineral Metabolism [address] [facility], [address] [place] [address] David Workman MD [address] [place] [address] 09/30/2025 10:10 AM EDT Appointment [facility] G Radiology [address] [place] [address] 09/30/2025 11:30 AM EDT Office Visit [facility] Head[facility] Neck & Respiratory [address] [facility], 2nd [place] [address] Aysha Crews MD [address] [facility] [address] [place] [address] documented as of this encounter [...] documented as of this encounter Care Teams Instructional Technology Teacher Relationship Specialty Start Date End Date Antwan Esparza MD [address] [place] [address] PCP - General 12/14/20 02/18/24 Inna Serrano APRN [address] [place] [address] PCP - General 02/19/24 Ángela Millard APRN [address] [place] [address] Nurse Practitioner Neurosurgery 09/17/21 documented as of this encounter
--- OUTSIDE RECORDS SUMMARY | 2025-02-14 13:57 | XMS_ITS | Encounter Summary ---
[facility] Address [address] [place] [address] Care Team Providers Care Digital Marketing Manager Name Role Phone Delmer Fritz MD Primary Care Provider [phone] Encounter Details Date Type Department Care Team (Late st Contact Info) Description 02/10/2025 Telephone [facility] MEDICAL [facility] CARDIOLOGY [address] [facility] [address] [place] [address] Emir Morales MD [address] [facility] [address] [facility] [address] [place] [address] Social History Tobacco Use Types Packs/Day Years [...] Not on file Sexual Orientation Straight 01/22/2025 9 :01 AM EDT 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 Added to scan pile. Can not find mention of IV Benadryl. Made Dr. Morales aware via secure chat. Have faxed request for more records, but have not received any further at this time. * Telephone Encounter - Bertha Vaughan RN - 02/10/2025 1:14 PM EDT Spoke with pt about upcoming cardiac cath with steroid and contrast allergies. Pt states to contrast dye and steroids he has the same reaction: throat swelling and whole body swelling, respiratory distress. blows up like a [place] blimp . Has had a cardiac cath previously years and years ago [facility]- said they gave him IV Benadryl before and after his procedure and kept overnight for monitoring. Says this plan worked well. Made Dr. Morales aware. Also faxed request to [facility] for cath and med records to confirm medicine regimen used at that time. documented in this encounter Plan of Treatment Upcoming Encounters Date Type Department Care Team (Late st Contact Info) Description 02/17/2025 8:00 AM EDT Hospital Encounter [facility] INFORMATION ENGINEER [address] [place] [address] Emir Morales MD [address] [place] [address] Chest pain, unspecified type; Abnormal nuclear stress test 02/17/2025 8:00 AM EDT - 02/17/2025 9:00 AM EDT Surgery [facility] INFORMATION ENGINEER [address] [place] [address] Emir Morales MD [address] [place] [address] Left Heart Cath [38600 (CPT )] Scheduled Procedures Name Priority Associated Diagnoses Date/Ti me LEFT HEART CATH w/cors Chest pain, unspecified type Abnormal nuclear stress test documented as of this encounter Visit Diagnoses Not on filedocumented in this encounter Care Teams Digital Marketing Manager Relationship Specialty Start Date End Date Delmer Fritz MD [address] [place] [address] PCP - General Family Medicine 08/07/24 documented as of this encounter
--- OUTSIDE RECORDS SUMMARY | 2025-02-14 13:57 | XMS_ITS | Encounter Summary ---
Author Organization [facility] Address [address] [place] [address] Care Team Providers Care Wood Scaler Name Role Phone Ángela Millard NETWORK LIAISON Unavailable [phone] Inna Serrano APRN Primary Care Provider [phone] Encounter Details Date Type Department Care Team (Late st Contact Info) Description 01/27/2025 Telephone [facility] Nephrology, Bone & Mineral Metabolism [address] [facility], [address] [place] [address] David Workman MD [address] [place] [address] Social History Tobacco Use Types [...] encounter Miscellaneous Notes * Telephone Encounter - Nanette Sandra - 01/27/2025 9:35 AM EDT Clinical Concern/Question Reason for Call: Pt's high school counselor took him off Carvedilol and prescribed Bumetanide instead. Pt said that his high school counselor is going to do labs in 1 week and evaluate whether the fluid retention has decreased. Pt said he will be admitted to the hospital if he has not improved. Best contact number: [phone] (home) Optimal time of day to reach caller: ANYTIME Additional comments/information from caller: This is FYI unless Dr Workman needs to speak to the pt about this, but pt was not requesting a callback. Note: Please do not reply to this [...] Medicine & Rehabilitation Clinic at [facility] [address] [place] [address] Leslie Suarez DO [address] [facility] [address] [place] [address] 04/08/2025 12:00 PM EST Office Visit [facility] Nephrology, Bone & Mineral Metabolism [address] [facility], [address] [place] [address] David Workman MD [address] [place] [address] 09/30/2025 10:10 AM EDT Appointment [facility] G Radiology [address] [place] [address] 09/30/2025 11:30 AM EDT Office Visit [facility] Head[facility] Neck & Respiratory [address] [facility], 2nd [place] [address] Aysha Crews MD [address] [place] [address] documented as of this encounter Visit Diagnoses Not on filedocumented in this encounter Additional Health Concerns Assessment Noted Time A fall risk assessment has been complete d for the patient 01/08/2025 1:58 PM EDT A Body Mass Index follow-up plan has been documented for the patient 01/08/2025 3:33 PM EDT documented as of this encounter Care Teams Wood Scaler Relationship Specialty Start Date End Date Inna Serrano APRN [address] [place], [place] [id number] PCP - General 02/19/24 Ángela Millard APRN [address] [place] [address] Nurse Practitioner Neurosurgery 09/17/21 documented as of this encounter
--- OUTSIDE RECORDS SUMMARY | 2025-02-14 13:57 | XMS_ITS | Encounter Summary ---
Author Organization [facility] Address [address] [place] [address] Care Team Providers Care Carton Stapler Name Role Phone Delmer Fritz MD Primary Care Provider [phone] Encounter Details Date Type Department Care Team (Late st Contact Info) Description 02/12/2025 Telephone [facility] CARDIOLOGY [address] [facility] [address] [place] [address] Emir Morales MD [address] [facility] [address] [facility] 400 [place] [address] Social History Tobacco Use Types Packs/Day Years [...] 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 faxed to [facility] lab at [phone]. documented in this encounter Plan of Treatment Upcoming Encounters Date Type Department Care Team (Late st Contact Info) Description 02/17/2025 8:00 AM EDT Hospital Encounter [facility] SENIOR RESEARCH CONSULTANT [address] [place] [address] Emir Morales MD [address] [place], [place] [id number] Chest pain, unspecified type; Abnormal nuclear stress test 02/17/2025 8:00 AM EDT - 02/17/2025 9:00 AM EDT Surgery [facility] SENIOR RESEARCH CONSULTANT [address] [place] [address] Emir Morales MD [address] [place] [id number] Left Heart Cath [80935 (CPT )] Scheduled Procedures Name Priority Associated Diagnoses Date/Ti me LEFT HEART CATH w/cors Chest pain, unspecified type Abnormal nuclear stress test documented as of this encounter Visit Diagnoses Not on filedocumented in this encounter Care Teams Carton Stapler Relationship Specialty Start Date End Date Delmer Fritz MD [address] [place] [address] PCP - General Family Medicine 08/07/24 documented as of this encounter
--- OUTSIDE RECORDS SUMMARY | 2025-02-14 13:57 | XMS_ITS | Encounter Summary ---
Author Organization [facility] Address [address] [id number] Care Team Providers Care Quantitative Consultant Name Role Phone Ángela Millard DIRECTOR GLOBAL INTELLIGENCE Unavailable [phone] Inan Serrano APRN Primary Care Provider [phone] Reason for Visit * Reason Onset Date Comments HCN Clinical Concern/Question 12/23/2024 Encounter Details Date Type Department Care Team ([facility] st Contact Info) Description 12/23/2024 Telephone [facility] Nephrology, Bone [facility] Mineral Metabolism [address], [address] [place] [address] Greta Elliott MD [address] [id number] HCN Clinical Concern/Question Social History Tobacco Use [...] Call: Patient would like to change his /6 appointment -- he prefers only a male provider. Best contact number: [phone] (home) Optimal time of day to reach caller: ANYTIME Additional comments/information from caller: None Note: Please do not reply to this message. Follow-up communication and further actions as a result of this message need to be communicated with the patient directly, if the patient is not active onMyChart. If the patient is active on MyChart, they will receive notification of the communication/outcome via NakedRoomt. documented in this encounter Plan of Treatment Upcoming Encounters Date Type Department Care Team (Late st Contact Info) Description 02/19/2025 3:20 PM EDT Office Visit [facility] [address] [place] [address] Leslie Suarez DO [address] [place] [address] 04/08/2025 12:00 PM EST Office Visit [facility] Nephrology, Bone & Mineral Metabolism [address], [address] [place] [address] David Workman MD [address] [place] [address] 09/30/2025 10:10 AM EDT Appointment [facility] Radiology [address] [place] [address] 09/30/2025 11:30 AM EDT Office Visit [facility] Res[facility] [address] 2nd [place] [address] Aysha Crews MD [address] [facility] [address] [place] [address] documented as of this encounter Visit Diagnoses Not on filedocumented in this encounter Additional Health Concerns Assessment Noted Time A fall risk assessment has been complete d for the patient 11/11/2024 1:29 PM EDT A Body Mass Index follow-up plan has been documented for the patient 11/11/2024 5:31 PM EDT documented as of this encounter Care Teams Quantitative Consultant Relationship Specialty Start Date End Date Inna Serrano APRN [address] [place] [address] PCP - General 02/19/24 Ángela Millard APRN [address] [place] [address] Nurse Practitioner Neurosurgery 09/17/21 documented as of this encounter
--- OUTSIDE RECORDS SUMMARY | 2025-02-14 13:57 | XMS_ITS | Patient Health Record ---
Author Organization [facility] Address [address] [place] [address] Care Team Providers Care Reflexologist Name Role Phone Chayo Morrison Primary Care Provider [phone] Jared Philippe Unavailable [phone] Migration, Provider Unavailable Unavailable Allergies Allergen (clinical drug ingredient) Drug/Non Drug Allergy documented on EMR Reaction Allergy Type Onset Date Status IVP DYE (uncoded) anaphylaxis Allergy Active Non-steroidal anti-inflammatory agent (FN) NAIDS (uncoded) anaphylaxis Allergy Active Steroid STEROID (uncoded) anaphylaxis Allergy Active Reason For Referral No Information Medications Medication SIG (Take, Route, Frequency, Duration) Notes Start Date End Date Status PROAIR HFA 90 MCG/INH AEROSOL ; Duration: 17 DAYS *Please review for potential replacement for e-prescription and drug interaction check* Active Cyclobenzaprine HCl 5 MG Tablet ; Duration: 10 Days Active Metoprolol Succinate ER 50 MG Tablet Extended Release 24 Hour ; Duration: 30 Days Active amLODIPine Besylate 10 MG Tablet 1 tab(s) orally once a day Active HYDROcodone-Acetamino phen 5-325 MG Tablet 1 tab(s) orally every 6 hours Active Nitroglycerin 0.4 MG Tablet Sublingual 1 tab(s) sublingually every 5 minutes PRN Active Lisinopril 10 MG Tablet 1 tab(s) orally once a day Active Losartan Potassium 50 MG Tablet 1 tab(s) orally once a day Active EPINEPHrine 0.3 MG KIT DIRECTED INTRAMUSCULARLY ONCE *Please review and pick correct strength-formulat ion from Medispan options. If intended option is not shown, discontinue and re-order from Quick Search* Active Social History Tobacco Use: Social History Observation Description Date Details (start date - stop date) Current Smoker NA - NA Social History General Social Info Question Answer Notes Substance use:- Smoking status: current smoker How often do you smoke cigarettes? every day How soon after you wake up do you smoke your first cigarette? 31-60 min How many cigarettes a day do you smoke? 11-20 Half a pack a day Are you interested in quitting? Thinking about quitting How long has it been since you last smoked? < 1 month Did you have a drink contain ing alcohol in the past year? No Have you used drugs other th an those for medical reasons in the past 12 months? No Personal History Marital status Do you have a partner or tessa ed one who provides emotional support or feels safe to talk to? Yes Do you have a partner or tessa ed one who can help with physical tasks (driving, cooking, helping to move) if you are unable to do so for yourself? Yes What is your work status? Disabled Do you exercise at least 2-3 times per week Yes Patient stated he takes walks. Do you eat fast food more th an 2-3 times per week? No Do you drink soda, pop, or s weet drinks (eg coffee) more than 2-3 times per week? Yes Do you eat sweets, deserts, or white breads/rice more than 2-3 times per week? 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 WRM (Z79.899) Active confirmed Problem Cervical spondylosis without myelopathy (261866793) Spondylosis without myelopathy or radiculopathy, cervical region (M47.812) Active confirmed Problem Cervical disc disorder (189636127) Cervical disc disorder, unspecified, unspecified cervical region (M50.90) Active confirmed Problem Dysthymia (41047757) Dysthymia (F34.1) Active confirmed Problem Opioid abuse (2171580) Opioid use, 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) Active confirmed Encounters Encounter Location Date Provider Diagnosis [facility] [address] [place] [address] 04/27/2024 Provider Migration Plan Of Treatment Pending Test Test Name Order Date Urine Drug Testing 11/29/2021 Future Test Test Name Order Date PPM - Personalized Pain Management (9921 3) 11/29/2021 Insurance Providers Payer Name Payer Address Payer Phone Subscriber Number Group Number Insured Name Patient Relationship to Insured Coverage Start Date Coverage End Date [employer] [place] - Medicaid [address] [address] [place] [id number] Luca Kauffman Self - patient is the insured 2 Medical (General) History Medical History History ICD Code COPD Arthritis Heartburn Hypertension Thyroid disease Surgical History Surgery Date(Month/Year) Shoulder Elbows 3 times Throat surgery Chest Lung Stomach Knees Hospitalization History Reason Date(Month/Year) Surgeries
--- OUTSIDE RECORDS SUMMARY | 2025-02-14 13:57 | XMS_ITS | Encounter Summary ---
Author Organization [facility] Address [address] [place] [address] Care Team Providers Care Front End Engineer Name Role Phone Ángela Millard CHIEF ENTERPRISE ARCHITECT Unavailable [phone] Inna Serrano CHIEF ENTERPRISE ARCHITECT Primary Care Provider [phone] Encounter Details Date Type Department Care Team ([facility] st Contact Info) Description 02/11/2025 Telephone [facility] Nephrology, Bone & Mineral Metabolism [address], [address] [place] [address] Mandie Olsen, PharmD [address] [place] [address] Social History Tobacco Use Types Packs/Day Years [...] encounter Miscellaneous Notes * Telephone Encounter - Mandie Olsen, PharmD - 02/11/2025 3:18 PM EDT Spoke with bethany over the phone to follow up on BP. Patient reports his accounting teacher told him to stop monitoring BP until he has heart cath. He reports he is not scheduled yet at this time, but they are working to get him scheduled. Will continue to follow up. Mandie Olsen PharmD, BCACP Clinical Pharmacist Ne[facility] [address] [place] [address] documented in this encounter Plan of Treatment Upcoming Encounters Date Type Department Care Team (Late st Contact Info) Description 02/19/2025 3:20 PM EDT Office Visit [facility] [address] [address] Leslie Suarez DO [address] [facility] [address] [place] [address] 04/08/2025 12:00 PM EST Office Visit [facility] Nephrology, Bone & Mineral Metabolism [address], [address] [place] [address] David Workman MD [address] [place] [address] 09/30/2025 10:10 AM EDT Appointment [facility] [address] [place] [address] 09/30/2025 11:30 AM EDT Office Visit [facility] Res[facility] [address] [facility], 2nd [place] [address] Aysha Crews MD [address] [facility] [address] [place] [address] documented as of this encounter Visit Diagnoses Not on filedocumented in this encounter Additional Health Concerns Assessment Noted Time A fall risk assessment has been complete d for the patient 01/08/2025 1:58 PM EDT A Body Mass Index follow-up plan has been documented for the patient 01/08/2025 3:33 PM EDT documented as of this encounter Care Teams Front End Engineer Relationship Specialty Start Date End Date Inna Serrano APRN [address] [place] [address] PCP - General 02/19/24 Ángela Millard APRN [address] [place] [address] Nurse Practitioner Neurosurgery 09/17/21 documented as of this encounter
--- OUTSIDE RECORDS SUMMARY | 2025-02-14 13:57 | XMS_ITS | Encounter Summary ---
Author Organization [facility] Address [address] [place] [address] Care Team Providers Care Dispersion Mixer Name Role Phone Ángela Millard MINE EQUIPMENT DESIGN ENGINEER Unavailable [phone] Inna Serrano APRN Primary Care Provider [phone] Encounter Details Date Type Department Care Team (Late st Contact Info) Description 12/19/2024 Orders Only Physical [facility] & Rehabilitation [facility] at [facility] [address] [place] [address] Leslie Suarez DO [address] [facility] [address] [place] [address] High risk medication use (Primary [...] Visit [facility] [address] [place] [address] Leslie Suarez DO [address] [place] [address] 04/08/2025 12:00 PM EST Office Visit [facility] Nephrology, Bone & Mineral Metabolism [address] [facility] [address] [place] [address] David Workman MD [address] [place] [address] 09/30/2025 10:10 AM EDT Appointment [facility] [address] [place] [address] 09/30/2025 11:30 AM EDT Office Visit [facility]ck [facility] Res[facility] [address] [facility], 2nd [place] [address] Aysha Crews MD [address] [place] [address] documented as of this encounter Visit Diagnoses Diagnosis High risk medication use- Primary documented in this encounter Additional Health Concerns Assessment Noted Time A fall risk assessment has been complete d for the patient 11/11/2024 1:29 PM EDT A Body Mass Index follow-up plan has been documented for the patient 11/11/2024 5:31 PM EDT documented as of this encounter Care Teams Dispersion Mixer Relationship Specialty Start Date End Date Inna Serrano APRN [address] [place] [address] PCP - General 02/19/24 Ángela Millard APRN [address] [place] [address] Nurse Practitioner Neurosurgery 09/17/21 documented as of this encounter
--- OUTSIDE RECORDS SUMMARY | 2025-02-14 13:57 | XMS_ITS | Encounter Summary ---
Author Organization [facility] Address [address] [place] [address] Care Team Providers Care Programming Manager Name Role Phone Ángela Millard AUDIT CONSULTANT Unavailable [phone] Inna Serrano APRN Primary Care Provider [phone] Reason for Visit * Reason Onset Date Comments HCN - Patient Message 12/19/2024 Encounter Details Date Type Department Care Team (Late st Contact Info) Description 12/19/2024 Telephone [facility] at [facility] [address] [facility] [place] [address] Leslie Suarez DO [address] [facility] [address] [place] [address] HCN - Patient Message Social [...] the new appt date/time. Best contact number: [phone] (mobile) Optimal time of day to reach caller: ANYTIME Additional comments/information from caller: None. Note: Please do not reply to this message. Follow-up communication and further actions as a result of this message need to be communicated with the patient directly, if the patient is not active onMyChart. If the patient is active on MyChart, they will receive notification of the communication/outcome via Monogram. * Telephone Encounter - Poly Squires - [...] staff re: urinalysis order. Best contact number: [phone] (mobile) Optimal time of day to reach [...] [facility] [address] [place] [address] Leslie Suarez DO [address] [place] [address] 04/08/2025 12:00 PM EST Office Visit [facility] Nephrology, Bone & Mineral Metabolism [address] [facility], [address] [place] [address] David Workman MD [address] [place] [address] 09/30/2025 10:10 AM EDT Appointment [facility] [address] [place] [address] 09/30/2025 11:30 AM EDT Office Visit [facility] Res[facility] [address] [facility], 2nd [place] [address] Aysha Crews MD [address] [facility] [address] [place] [address] documented as of this encounter Visit Diagnoses Not on filedocumented in this encounter Additional Health Concerns Assessment Noted Time A fall risk assessment has been complete d for the patient 11/11/2024 1:29 PM EDT A Body Mass Index follow-up plan has been documented for the patient 11/11/2024 5:31 PM EDT documented as of this encounter Care Teams Programming Manager Relationship Specialty Start Date End Date Inna Serrano APRN [address] [place] [address] PCP - General 02/19/24 Ángela Millard APRN [address] [place] [address] Nurse Practitioner Neurosurgery 09/17/21 documented as of this encounter
--- OUTSIDE RECORDS SUMMARY | 2025-02-14 13:57 | XMS_ITS | Encounter Summary ---
Author [facility] Address [address] [place] [address] Care Team Providers Care Installer Molding And Trim Name Role Phone Antwan Esparza MD Primary Care Provider [phone] Ángela Millard POWERTRAIN ENGINEER Unavailable [phone] Inna Serrano APRN Primary Care Provider [phone] Encounter Details Date Type Department Care Team (Late st Contact Info) Description 10/06/2023 Orders Only External Location [address] [place] [address] Provider, External Social History Tobacco Use Types [...] Physical Medicine & Rehabilitation Clinic at [facility] [address] [place] [address] Leslie Suarez DO [address] [place] [address] 04/08/2025 12:00 PM EST Office Visit [facility] Nephrology, Bone & Mineral Metabolism [address] [place] [address] David Workman MD [address] [place] [address] 09/30/2025 10:10 AM EDT Appointment [facility] [address] [place] [address] 09/30/2025 11:30 AM EDT Office Visit [facility] [address] [facility] 2nd [place] [address] Aysha Crews MD [address] [place] [address] documented as of this encounter [...] documented as of this encounter Care Teams Installer Molding And Trim Relationship Specialty Start Date End Date Antwan Esparza MD [address] [place] [address] PCP - General 12/14/20 02/18/24 Inna Serrano APRN [address] [place] [address] PCP - General 02/19/24 Ángela Millard APRN [address] [address] Nurse Practitioner Neurosurgery 09/17/21 documented as of this encounter
--- OUTSIDE RECORDS SUMMARY | 2025-02-14 13:57 | XMS_ITS | Encounter Summary ---
Author Organization [facility] Address [address] [place] [address] Care Team Providers Care Aix Administrator Name Role Phone Ángela Millard PERFORMANCE ANALYST Unavailable [phone] Inna Serrano APRN Primary Care Provider [phone] Encounter Details Date Type Department Care Team [...] Visit Physical Medicine & Rehabilitation [facility] at [facility] [address] [place] [address] Leslie Suarez DO [address] [place] [address] 04/08/2025 12:00 PM EST Office Visit [facility] Nephrology, Bone & Mineral Metabolism [address] [facility], [address] [place] [address] David Workman MD [address] [place] [address] 09/30/2025 10:10 AM EDT Appointment [facility] Radiology [address] [place] [address] 09/30/2025 11:30 AM EDT Office Visit [facility]ck [facility] Respiratory [address] [facility], 2nd [place] [address] Aysha Crews MD [address] [facility] [address] [place] [address] documented as of this encounter Visit Diagnoses Not on filedocumented in this encounter Additional Health Concerns Assessment Noted Time A fall risk assessment has been complete d for the patient 11/11/2024 1:29 PM EDT A Body Mass Index follow-up plan has been documented for the patient 11/11/2024 5:31 PM EDT documented as of this encounter Care Teams Aix Administrator Relationship Specialty Start Date End Date Inna Serrano APRN [address] [place] [address] PCP - General 02/19/24 Ángela Millard APRN [address] [place] [address] Nurse Practitioner Neurosurgery 09/17/21 documented as of this encounter
--- OUTSIDE RECORDS SUMMARY | 2025-02-14 13:57 | XMS_ITS | Encounter Summary ---
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 Not on file Not on f ile documented as of this encounter Plan of Treatment Upcoming Encounters Date Type Department Care Team (Late st Contact Info) Description 02/17/2025 8:00 AM EDT Hospital Encounter [facility] [address] [place] [address] Emir Morales MD [address] [place] [address] Chest pain, unspecified type; Abnormal nuclear stress test 02/17/2025 8:00 AM EDT - 02/17/2025 9:00 AM EDT Surgery [facility] LETTER STAMPING MACHINE OPERATOR [address] [place] [address] Emir Morales MD [address] [place] [address] Left Heart Cath [38887 (CPT )] Scheduled Procedures Name Priority Associated Diagnoses Date/Ti me LEFT HEART CATH w/cors Chest pain, unspecified type Abnormal nuclear stress test documented as of this encounter Visit Diagnoses Not on filedocumented in this encounter Care Teams Sand Mill Operator Facing Sand Relationship Specialty Start Date End Date Delmer Fritz MD [address] [place] [address] PCP - General Family Medicine 08/07/24 documented as of this encounter
--- OUTSIDE RECORDS SUMMARY | 2025-02-14 13:57 | XMS_ITS | Encounter Summary ---
Author Organization [facility] Address [address] [place] [address] Care Team Providers Care Patients Transporter Name Role Phone Ángela Millard Ev SOCIAL PROFESSIONALS Unavailable [phone] Inna Serrano APRN Primary Care Provider [phone] Reason for Visit * Reason Onset Date Comments HCN Clinical Concern/Question 01/22/2025 Encounter Details Date Type Department Care Team ([facility] st Contact Info) Description 01/22/2025 Telephone [facility] Nephrology, Bone & Mineral Metabolism [address] [facility] [place] [address] David Workman MD [address] [place] [address] HCN Clinical Concern/Question Social History [...] * Telephone Encounter - Tammy Mata - 01/22/2025 9:17 AM EDT Clinical Concern/Question Reason for Call: Patient letting care team know that he had a renal ultrasound done at [facility] on 01/21 and wants to make sure Dr. Workman gets the results. Best contact number: [phone] (home) Optimal time of day to reach caller: ANYTIME Additional comments/information from caller: None Note: Please do not reply to this message. Follow-up communication and further actions as a result of this message need to be communicated with the patient directly, if the patient is not active onMyChart. If the patient is active on MyChart, they will receive notification of the communication/outcome via BrightLinehart. documented in this encounter Plan of Treatment Upcoming Encounters Date Type Department Care Team ([facility] st Contact Info) Description 02/19/2025 3:20 PM EDT Office Visit [facility] [address] [address] Leslie Suarez DO [address] [place] [address] 04/08/2025 12:00 PM EST Office Visit [facility] Nephrology, Bone & Mineral Metabolism [address] [facility], [address] [place] [address] David Workman MD [address] [place] [address] 09/30/2025 10:10 AM EDT Appointment [facility] [address] [place] [address] 09/30/2025 11:30 AM EDT Office Visit [facility] [address] [facility], 2nd [place] [address] Aysha Crews MD [address] [facility] [address] [place] [address] documented as of this encounter Visit Diagnoses Not on filedocumented in this encounter Additional Health Concerns Assessment Noted Time A fall risk assessment has been complete d for the patient 01/08/2025 1:58 PM EDT A Body Mass Index follow-up plan has been documented for the patient 01/08/2025 3:33 PM EDT documented as of this encounter Care Teams Patients Transporter Relationship Specialty Start Date End Date Inna Serrano APRN [address] [place] [address] PCP - General 02/19/24 Ángela Millard APRN [address] [place] [address] Nurse Practitioner Neurosurgery 09/17/21 documented as of this encounter
--- OUTSIDE RECORDS SUMMARY | 2025-02-14 13:57 | XMS_ITS | Encounter Summary ---
Author Organization [facility] Address [address] [place] [address] Care Team Providers Care Hyperbaric Technologist Name Role Phone Ángela Millard COMPUTED TOMOGRAPHY TECHNICIAN Unavailable [phone] Inna Serrano COMPUTED TOMOGRAPHY TECHNICIAN Primary Care Provider [phone] Encounter Details Date Type Department Care Team (Late st Contact Info) Description 01/24/2025 Telephone [facility] Met[facility] [address] [facility], [address] [place] [address] David Workman MD [address] [place] [address] Social History Tobacco Use Types [...] * Telephone Encounter - Celina Arce - 01/24/2025 1:[address] Workman please let pt know that impression is kidneys are structurally normal, no stones andnothing to explain his left flank pain. I am on inpatient ICU service to can't call him today. We can discuss results more in depth at follow up * Telephone Encounter - Celina Arce - 01/24/2025 12:47 PM EDT Secure chat sent to the provider, Dr. Workman * Telephone Encounter - Crystal Chavez - 01/24/2025 10:07 AM EDT Clinical Concern/Question Reason for Call: patient calling he needs call back he stated from a pharmacist, he said he needs to find out if images was received from ultrasound would like call back Best contact number: Other: [phone] Optimal time of day to reach caller: ANYTIME Additional comments/information from caller: None Note: Please do not reply to this message. Follow-up communication and further actions as a result of this message need to be communicated with the patient directly, if the patient is not active onMyChart. If the patient is active on MyChart, they will receive notification of the communication/outcome via Segopotso. documented in this encounter Plan of Treatment Upcoming Encounters Date Type Department Care Team (Late st Contact Info) Description 02/19/2025 3:20 PM EDT Office Visit [facility] at [facility] [address] [place] [address] Leslie Suarez DO [address] [facility] [address] [place] [address] 04/08/2025 12:00 PM EST Office Visit Professional [facility] Nephrology, Bone & Mineral Metabolism [address] [facility], [address] [place] [address] David Workman MD [address] [place] [address] 09/30/2025 10:10 AM EDT Appointment [facility] Radiology [address] [place] [address] 09/30/2025 11:30 AM EDT Office Visit [facility] Head[facility] Neck & Respiratory [address] [facility], 2nd [place] [address] Aysha Crews MD [address] [place] [address] documented as of this encounter Visit Diagnoses Not on filedocumented in this encounter Additional Health Concerns Assessment Noted Time A fall risk assessment has been complete d for the patient 01/08/2025 1:58 PM EDT A Body Mass Index follow-up plan has been documented for the patient 01/08/2025 3:33 PM EDT documented as of this encounter Care Teams Hyperbaric Technologist Relationship Specialty Start Date End Date Inna Serrano APRN [facility] [place] [address] PCP - General 02/19/24 Ángela Millard APRN [address] [place] [address] Nurse Practitioner Neurosurgery 09/17/21 documented as of this encounter
--- OUTSIDE RECORDS SUMMARY | 2025-02-14 13:57 | XMS_ITS | Encounter Summary ---
Author Organization [facility] Address [address] [place] [address] Care Team Providers Care Candle Pourer Name Role Phone Antwan Esparza MD Primary Care Provider [phone] Ángela Millard CLERK GENERAL Unavailable Inna Serrano APRN Primary Care Provider [phone] Reason for Referral * Consultation (Routine) - Closed Specialty Diagnoses / Procedures Referred By Cortez johnson Referred To Contact Endocrinology Diagnoses Thyroid nodule Jose Mccracken MD [address] [facility] [address] [place] [address] Phone: tel: fax: [facility] Endocrinology [address] [place] [address] Phone: tel: fax: Referral ID Status Reason Start Date Expiration Date V isits Requested Visits Authorized [id number] Closed Specialty Services Required 08/01/2022 01/31/2024 1 1 Encounter Details Date Type Department Care Team (Late st Contact Info) Description 08/01/2022 [facility] [address] [place] [address] Jose Mccracken MD [address] [facility] [place] [address] Thyroid nodule (Primary Dx) Social [...] [facility] [address] [place] [address] Leslie Suarez DO [address] [facility] [address] [place] [address] 04/08/2025 12:00 PM EST Office Visit [facility] & Mineral Metabolism [address] [facility], [address] [place] [address] David Workman MD [address] [place] [address] 09/30/2025 10:10 AM EDT Appointment [facility] Radiology [address] [place] [address] 09/30/2025 11:30 AM EDT Office Visit [facility] Head[facility] Neck & Respiratory [address] [facility], 2nd [place] [address] Aysha Crews MD [address] [facility] [address] [place] [address] Scheduled Referrals Name Type Priority Associated Diagnoses [...] documented as of this encounter Care Teams Candle Pourer Relationship Specialty Start Date End Date Antwan Esparza MD [address] [place] [address] PCP - General 12/14/20 02/18/24 Inna Serrano, CLERK GENERAL [address] [place] [address] PCP - General 02/19/24 Ángela Millard APRN [address] [place] [address] Nurse Practitioner Neurosurgery 09/17/21 documented as of this encounter
--- OUTSIDE RECORDS SUMMARY | 2025-02-14 13:57 | XMS_ITS | Encounter Summary ---
Author Organization [facility] Address [address] [place] [address] Care Team Providers Care Chief Technician X Ray Name Role Phone Ángela Millard Ev COOKER SULFITE Unavailable [phone] Inna Serrano APRN Primary Care Provider [phone] Reason for Visit * Reason Onset Date Comments HCN - Patient Message 02/03/2025 Encounter Details Date Type Department Care Team ([facility] st Contact Info) Description 02/03/2025 Telephone [facility], Bone [facility] Mineral Metabolism [address] [facility], [address] [place] [address] David Workman MD [address] [place] [address] HCN - Patient Message Social History [...] * Telephone Encounter - Tammy Mata - 02/04/2025 3:02 PM EDT Clinical Concern/Question Reason for Call: Patient would like to let Dr. Workman know that he is going to be having a heart surgery at [facility]. Best contact number: [phone] (mobile) Optimal time of day to reach [...] communication/outcome via MyChart. * Telephone Encounter - Nanette Sandra - 02/04/2025 9:54 AM EDT Status Update Call #1 1st call regarding the status of the initial request. Best contact number: [phone] (home) Optimal time of day to reach caller: ANYTIME Additional comments/information from caller: Pt called to let Dr Workman know that [facility] is sending the imaging as well. Note: Please do not reply to this message. Follow-up communication and further actions as a result of this message need to be communicated with the patient directly, if the patient is not active onMyChart. If the patient is active on MyChart, they will receive notification of the communication/outcome via MyChart. * Telephone Encounter - Nehal Bass - 02/03/2025 11:37 AM EDT Clinical Concern/Question Reason for Call: pt had a nuclear heart scan done at [facility] last Monday and would like to know if Dr. Workman would like a copy of those test results. Best contact number: [phone] (mobile) Optimal time of day to reach [...] Upcoming Encounters Date Type Department Care Team ([facility] st Contact Info) Description 02/19/2025 3:20 PM EDT Office Visit [facility] [address] [place] [address] Leslie Suarez DO [address] [facility] [address] [place] [address] 04/08/2025 12:00 PM EST Office Visit [facility] [place] Nephrology, Bone & Mineral Metabolism [address] [facility], [address] [place] [address] David Workman MD [address] [place] [address] 09/30/2025 10:10 AM EDT Appointment [facility] Radiology [address] [place] [address] 09/30/2025 11:30 AM EDT Office Visit [facility] Head, Neck & Respiratory [address] [facility], 2nd [place] [address] Aysha Crews MD [address] [facility] [address] [place] [address] documented as of this encounter Visit Diagnoses Not on filedocumented in this encounter Additional Health Concerns Assessment Noted Time A fall risk assessment has been complete d for the patient 01/08/2025 1:58 PM EDT A Body Mass Index follow-up plan has been documented for the patient 01/08/2025 3:33 PM EDT documented as of this encounter Care Teams Chief Technician X Ray Relationship Specialty Start Date End Date Inna Serrano APRN [address] [place] [address] PCP - General 02/19/24 Ángela Millard APRN [address] [place] [address] Nurse Practitioner Neurosurgery 09/17/21 documented as of this encounter
--- OUTSIDE RECORDS SUMMARY | 2025-02-14 13:57 | XMS_ITS | Encounter Summary ---
Author Organization [facility] Address [address] [place] [address] Care Team Providers Care Supervisor Intelligence Analyst Name Role Phone Ángela Millard Ev LOCATION MAN Unavailable [phone] Inna Serrano APRN Primary Care Provider [phone] Reason for Visit * Reason Onset Date Comments HCN Clinical Concern/Question 12/19/2024 Encounter Details Date Type Department Care Team ([facility] st Contact Info) Description 12/19/2024 Telephone [facility] Neph[facility] Bone [facility] Mineral Metabolism [address] [facility], [address] [place] [address] David Workman MD [address] [place] [address] HCN Clinical Concern/Question Social History [...] have a stress test. Best contact number: [phone] (mobile) Optimal time of day to reach caller: ANYTIME Additional comments/information from caller: None Note: Please do not reply to this message. Follow-up communication and further actions as a result of this message need to be communicated with the patient directly, if the patient is not active onMyChart. If the patient is active on MyChart, they will receive notification of the communication/outcome via Fiixhart. documented in this encounter Plan of Treatment Upcoming Encounters Date Type Department Care Team ([facility] st Contact Info) Description 02/19/2025 3:20 PM EDT Office Visit Physical Medicine & Rehabilitation Clinic at [facility] [address] [place] [address] Leslie Suarez DO [address] [facility] [address] [place] [address] 04/08/2025 12:00 PM EST Office Visit [facility] [place] Nephrology, Bone & Mineral Metabolism [address] [facility], [address] [place] [address] David Workman MD [address] [place] [address] 09/30/2025 10:10 AM EDT Appointment [facility] Radiology [address] [place] [address] 09/30/2025 11:30 AM EDT Office Visit [facility] Head, Neck & Respiratory [address] [facility], 2nd [place] [address] Aysha Crews MD [address] [facility] [address] [place] [address] documented as of this encounter Visit Diagnoses Not on filedocumented in this encounter Additional Health Concerns Assessment Noted Time A fall risk assessment has been complete d for the patient 11/11/2024 1:29 PM EDT A Body Mass Index follow-up plan has been documented for the patient 11/11/2024 5:31 PM EDT documented as of this encounter Care Teams Supervisor Intelligence Analyst Relationship Specialty Start Date End Date Inna Serrano APRN [address] [place] [address] PCP - General 02/19/24 Ángela Millard APRN [address] [place] [address] Nurse Practitioner Neurosurgery 09/17/21 documented as of this encounter
--- OUTSIDE RECORDS SUMMARY | 2025-02-14 13:57 | XMS_ITS | Encounter Summary ---
Author Organization [facility] Address [address] [place] [address] Care Team Providers Care Event Set Up Specialist Name Role Phone Antwan Esparza MD Primary Care Provider [phone] Ángela Millard CAR SALTER Unavailable [phone] Inna Serrano APRN Primary Care Provider + [phone] Encounter Details Date Type Department Care Team (Late st Contact Info) Description 10/06/2023 Orders Only External Location [address] [place] [address] Provider, External Social History Tobacco Use Types [...] [facility] [address] [place] [address] Leslie Suarez DO [address] [place] [address] 04/08/2025 12:00 PM EST Office Visit Professional [facility] Nephrology, Bone & Mineral Metabolism [address] [place] [address] David Workman MD [address] [place] [address] 09/30/2025 10:10 AM EDT Appointment [facility] Radiology [address] [place] [address] 09/30/2025 11:30 AM EDT Office Visit [facility] Head, Neck & Respiratory [address] [facility], 2nd [place] [address] Aysha Crews MD [address] [place] [address] documented as of this encounter [...] documented as of this encounter Care Teams Event Set Up Specialist Relationship Specialty Start Date End Date Antwan Esparza MD [address] [place] [address] PCP - General 12/14/20 02/18/24 Inna Serrano APRN [address] [place] [address] PCP - General 02/19/24 Ánegla Millard APRN [address] [facility]01 [place] [address] Nurse Practitioner Neurosurgery 09/17/21 documented as of this encounter
--- OUTSIDE RECORDS SUMMARY | 2025-02-14 13:57 | XMS_ITS | Encounter Summary ---
Author Organization [facility] Address [address] [place] [address] Care Team Providers Care Fine Grade Bulldozer Operator Name Role Phone Ángela Millard FACILITIES SUPERVISOR Unavailable [phone] Inna Serrano FACILITIES SUPERVISOR Primary Care Provider [phone] Encounter Details Date Type Department Care Team (Late st Contact Info) Description 12/30/2024 Telephone [facility] Mineral Metabolism [address] [facility], [address] [place] [address] David Workman MD [address] [place] [address] Social History Tobacco Use Types [...] concerns at this time Best contact number: [phone] (home) Optimal time of day to reach caller: ANYTIME Additional comments/information from caller: None Note: Please do not reply to this message. Follow-up communication and further actions as a result of this message need to be communicated with the patient directly, if the patient is not active onMyChart. If the patient is active on MyChart, they will receive notification of the communication/outcome via GadgetATMhart. documented in this encounter Plan of Treatment Upcoming Encounters Date Type Department Care Team ([facility] st Contact Info) Description 02/19/2025 3:20 PM EDT Office Visit [facility] [address] [place] [address] Leslie Suarez DO [address] [place] [address] 04/08/2025 12:00 PM EST Office Visit [facility] Nephrology, Bone & Mineral Metabolism [address] [facility], [address] [place] [address] David Workman MD [address] [place] [address] 09/30/2025 10:10 AM EDT Appointment [facility] Radiology [address] [place] [address] 09/30/2025 11:30 AM EDT Office Visit [facility] Head, Neck & Respiratory [address] [facility], 2nd [place] [address] Aysha Crews MD [address] [place] [address] documented as of this encounter Visit Diagnoses Not on filedocumented in this encounter Additional Health Concerns Assessment Noted Time A fall risk assessment has been complete d for the patient 11/11/2024 1:29 PM EDT A Body Mass Index follow-up plan has been documented for the patient 11/11/2024 5:31 PM EDT documented as of this encounter Care Teams Fine Grade Bulldozer Operator Relationship Specialty Start Date End Date Inna Serrano APRN [address] [place], [place] [address] PCP - General 02/19/24 Ángela Millard APRN [address] [place] [address] Nurse Practitioner Neurosurgery 09/17/21 documented as of this encounter
--- OUTSIDE RECORDS SUMMARY | 2025-02-14 13:58 | XMS_ITS | Encounter Summary ---
Author Organization [facility] Address [address] [place] [address] Care Team Providers Care Die Cutter Diamond Name Role Phone Antwan Esparza MD Primary Care Provider [phone] Ángela Millard NETWORK RELATIONS CONSULTANT Unavailable [phone] Inna Serrano NETWORK RELATIONS CONSULTANT Primary Care Provider [phone] Encounter Details Date Type Department Care Team (Late Contact Info) Description 04/06/2022 Orders Only External Location [address] [place] [address] Petra Regalado [address] [address] Social History Tobacco Use Types [...] [facility] [address] [place] [address] Leslie Suarez DO [address] [place] [address] 04/08/2025 12:00 PM EST Office Visit Professional [facility] Nephrology, Bone & Mineral Metabolism [address] [facility], [address] [place] [address] David Workman MD [address] [place] [address] 09/30/2025 10:10 AM EDT Appointment [facility] Radiology [address] [place] [address] 09/30/2025 11:30 AM EDT Office Visit [facility] Head[facility] Neck & Respiratory [address] [facility], 2nd [place] [address] Aysha Crews MD [address] [place] [address] documented as of this encounter Procedures Procedure Name Priority Date/Time Associated Diagnosis Comments MR MSK OUTSIDE IMAGES 04/06/2022 1:22 PM EST documented in this encounter Results * MR MSK OUTSIDE IMAGES (04/06/2022 1:22 PM EST) Anatomical Region Laterality Modality Magnetic Resonan ce 04/06/2022 1:22 PM EST Petra Regalado [facility] PROCEDURES Final Result documented in this encounter Visit Diagnoses Not on filedocumented in this encounter Additional Health Concerns Assessment Noted Time A fall risk assessment has been complete d for the patient 01/31/2022 1:51 PM EDT documented as of this encounter Care Teams Die Cutter Diamond Relationship Specialty Start Date End Date Antwan Esparza MD [address] [place] [address] PCP - General 12/14/20 02/18/24 Inna Serrano APRN [facility] [place] [address] PCP - General 02/19/24 Ángela Millard APRN [address] [place] [address] Nurse Practitioner Neurosurgery 09/17/21 documented as of this encounter
--- OUTSIDE RECORDS SUMMARY | 2025-02-14 13:58 | XMS_ITS | Encounter Summary ---
Author Organization [facility] Address [address] [place] [address] Care Team Providers Care Laborer Shellfish Processing Name Role Phone Antwan Esparza MD Primary Care Provider + [phone] Ángela Millard ADVANCE SCOUT Unavailable [phone] Inna Serrano ADVANCE SCOUT Primary Care Provider [phone] Reason for Visit * Reason Onset Date Comments HCN - Patient Message 10/08/2021 Encounter Details Date Type Department Care Team (Late st Contact Info) Description 09/27/2021 Refill [facility] [address] [place] [address] Leslie Suarez, DO [address] [facility] [address] [place] [address] Chronic low back pain, unspecified [...] optimal time of day to reach caller: [phone] Note: Please do not reply to this [...] optimal time of day to reach caller: [phone] Note: Please do not reply to this [...] & Dosage: Hydrocodone Preferred Pharmacy & Location: [facility] Days of medication remaining (if under 3 days please aishwarya as urgent): 4 Best contact number and optimal time of day to reach caller: [phone] Additional comments/information from caller: Pt asked if [...] [facility] [address] [place] [address] Leslie Suarez DO [address] [place] [address] 04/08/2025 12:00 PM EST Office Visit [facility] [place] Nephrology, Bone & Mineral Metabolism [address] [facility], [address] [place] [address] David Workman MD [address] [place] [address] 09/30/2025 10:10 AM EDT Appointment [facility] Radiology [address] [place] [address] 09/30/2025 11:30 AM EDT Office Visit [facility] Head[facility] Neck & Respiratory 800 [facility], 2nd [place] [address] Aysha Crews MD [address] [facility] [address] [place] [address] documented as of this encounter Visit Diagnoses Diagnosis Chronic low back pain, unspecified back pain laterality, unspecified whether sciatica present documented in this encounter Additional Health Concerns Assessment Noted Time A fall risk assessment has been complete d for the patient 09/17/2021 1:57 PM EDT documented as of this encounter Care Teams Laborer Shellfish Processing Relationship Specialty Start Date End Date Antwan Esparza MD [address] [place] [address] PCP - General 12/14/20 02/18/24 Inna Serrano APRN [address] [place] [address] PCP - General 02/19/24 Ángela Millard APRN [address] [place] [facility] [address] [place] [address] Nurse Practitioner Neurosurgery 09/17/21 documented as of this encounter
--- OUTSIDE RECORDS SUMMARY | 2025-02-14 13:58 | XMS_ITS | Encounter Summary ---
Author Organization [facility] Address [address] [place] [address] Care Team Providers Care System Designer Name Role Phone Antwan Esparza MD Primary Care Provider + [phone] Ángela Millard REED REPAIRER Unavailable [phone] Inna Serrano APRN Primary Care Provider + [phone] Encounter Details Date Type Department Care Team (Late Contact Info) Description 02/01/2021 Orders Only External Location [address] [place] [address] Provider, External Social History Tobacco Use Types [...] Physical Medicine & Rehabilitation [facility] at [facility] [address] [place] [address] Leslie Suarez DO [address] [place] [address] 04/08/2025 12:00 PM EST Office Visit [facility] Nephrology, Bone & Mineral Metabolism [address] [facility], [address] [place] [address] David Workman MD [address] [place] [address] 09/30/2025 10:10 AM EDT Appointment [facility] Radiology [address] [place] [address] 09/30/2025 11:30 AM EDT Office Visit [facility] Head[facility] Neck & Respiratory [address] [facility], 2nd [place] [address] Aysha Crews MD [address] [place] [address] documented as of this encounter [...] documented as of this encounter Care Teams System Designer Relationship Specialty Start Date End Date Antwan Esparza MD [address] [place] [address] PCP - General 12/14/20 02/18/24 Inna Serrano APRN [facility] [place] [address] PCP - General 02/19/24 Ángela Millard APRN [address] [place] [address] Nurse Practitioner Neurosurgery 09/17/21 documented as of this encounter
--- OUTSIDE RECORDS SUMMARY | 2025-02-14 13:58 | XMS_ITS | Encounter Summary ---
Author Organization [facility] Address [address] [place] [address] Care Team Providers Care Senior Linux Engineer Name Role Phone Antwan Esparza MD Primary Care Provider [phone] Ángela Millard SPIN INSTRUCTOR Unavailable [phone] Inna Serrano APRN Primary Care Provider [phone] Encounter Details Date Type Department Care Team (Late Contact Info) Description 07/19/2023 Orders Only External Location [address] [place] [address] Andrew Borja, DO [address] [place] [address] [place] [id number] Social History Tobacco Use Types Packs/Day Years [...] [facility] at [facility] [address] [address] Leslie Suarez DO [address] [place] [address] 04/08/2025 12:00 PM EST Office Visit [facility] [place] [facility] Nephrology, Bone & Mineral Metabolism [address] [facility], [address] [place] [address] David Workman MD [address] [place] [address] 09/30/2025 10:10 AM EDT Appointment [facility] Radiology [address] [place] [address] 09/30/2025 11:30 AM EDT Office Visit [facility] Head, Neck & Respiratory [address] [facility], 2nd [place] [address] Aysha Crews MD [address] [facility] [address] [place] [address] documented as of this encounter [...] as of this encounter Care Teams Senior Linux Engineer Relationship Specialty Start Date End Date Antwan Esparza MD [address] [place] [address] PCP - General 12/14/20 02/18/24 Inna Serrano APRN [address] [place] [address] PCP - General 02/19/24 Ángela Millard APRN [address] [place] [address] Nurse Practitioner Neurosurgery 09/17/21 documented as of this encounter
--- OUTSIDE RECORDS SUMMARY | 2025-02-14 13:58 | XMS_ITS | Encounter Summary ---
Author Organization [facility] Address [address] [place] [address] Care Team Providers Care Housing Manager Name Role Phone Antwan Esparza MD Primary Care Provider + [phone] Ángela Millard FORM SETTER STEEL PAN FORMS Unavailable [phone] Inna Serrano FORM SETTER STEEL PAN FORMS Primary Care Provider [phone] Reason for Visit * Reason Onset Date Comments HCN - Rx Refill Request 12/27/2021 Encounter Details Date Type Department Care Team (Late st Contact Info) Description 12/27/2021 Telephone Physical Medicine & Rehabilitation Clinic at [facility] [address] [place] [address] Leslie Suarez DO [address] [facility] [address] [place] [address] HCN - Rx Refill Request [...] Hydrocodone and diclofenac Preferred Pharmacy & Location: [facility] Days of medication remaining (if under 3 days please aishwarya as urgent): 5 Best contact number and optimal time of day to reach caller: [phone] Additional comments/information from caller: Note: Please do not reply to this message. Follow-up communication and further actions as a result of this message need to be communicated with the patient directly, if the patient is not active onMyChart. If the patient is active on MyChart, they will receive notification of the communication/outcome via [employer]. documented in this encounter Plan of Treatment Upcoming Encounters Date Type Department Care Team ([facility] st Contact Info) Description 02/19/2025 3:20 PM EDT Office Visit [facility] [address] [place] [address] Leslie Suarez DO [address] [facility] [address] [place] [address] 04/08/2025 12:00 PM EST Office Visit [facility] Nephrology, Bone & Mineral Metabolism [address] [facility], [address] [place] [address] David Workman MD [address] [place] [address] 09/30/2025 10:10 AM EDT Appointment [facility] G Radiology [address] [place] [address] 09/30/2025 11:30 AM EDT Office Visit [facility] Head, Neck & Respiratory [address] [facility], 2nd [place] [address] Aysha Crews MD [address] [facility] [address] [place] [address] documented as of this encounter Visit Diagnoses Diagnosis Chronic low back pain, unspecified back pain laterality, unspecified whether sciatica present documented in this encounter Additional Health Concerns Assessment Noted Time A fall risk assessment has been complete d for the patient 11/01/2021 9:34 AM EDT documented as of this encounter Care Teams Housing Manager Relationship Specialty Start Date End Date Antwan Esparza MD [address] [place] [address] PCP - General 12/14/20 02/18/24 Inna Serrano APRN [address] [place] [address] PCP - General 02/19/24 Ángela Millard APRN [address] [place] [address] Nurse Practitioner Neurosurgery 09/17/21 documented as of this encounter
--- OUTSIDE RECORDS SUMMARY | 2025-02-14 13:58 | XMS_ITS | Encounter Summary ---
Author Organization Healthcare Address [address] [place] [id number] Care Team Providers Care Caustic Pump Operator Name Role Phone Antwan Esparza MD Primary Care Provider + [phone] Ángela Millard COMPUTER SYSTEM VALIDATION SPECIALIST Unavailable [phone] Inna Serrano COMPUTER SYSTEM VALIDATION SPECIALIST Primary Care Provider + [phone] Reason for Visit * Reason Onset Date Comments HCN - Rx Refill Request 05/30/2022 Encounter Details Date Type Department Care Team (Late st Contact Info) Description 05/30/2022 Refill PFE SCHEDULING [address] [place] [address] Leslie Suarez DO [address] [facility] [address] [place] [address] Chronic low back pain, unspecified back pain [...] needed for pain Preferred Pharmacy & Location: [facility] [phone] Days of medication remaining (if under 3 days please aishwarya as urgent): 0 Best contact number and optimal time of day to reach caller: [phone] Additional comments/information from caller: Note: Please do not reply to this message. Follow-up communication and further actions as a result of this message need to be communicated with the patient directly, if the patient is not active onMyChart. If the patient is active on MyChart, they will receive notification of the communication/outcome via [employer]. documented in this encounter Plan of Treatment Upcoming Encounters Date Type Department Care Team (Late st Contact Info) Description 02/19/2025 3:20 PM EDT Office Visit [facility] at [facility] [address] [place] [address] Leslie Suarez DO [address] [facility] [address] [place] [address] 04/08/2025 12:00 PM EST Office Visit [facility] Nephrology, Bone & Mineral Metabolism [address] [facility], [address] [place] [address] David Workman MD [address] [place] [address] 09/30/2025 10:10 AM EDT Appointment [facility] G Radiology [address] [place] [address] 09/30/2025 11:30 AM EDT Office Visit [facility] Head, Neck & Respiratory [address] [facility], 2nd [place] [address] Aysha Crews MD [address] [facility] [address] [place] [address] documented as of this encounter Visit Diagnoses Diagnosis Chronic low back pain, unspecified back pain laterality, unspecified whether sciatica present documented in this encounter Additional Health Concerns Assessment Noted Time A fall risk assessment has been complete d for the patient 04/25/2022 1:12 PM EST documented as of this encounter Care Teams Caustic Pump Operator Relationship Specialty Start Date End Date Antwan Esparza MD [address] [place] [address] PCP - General 12/14/20 02/18/24 Inna Serrano APRN [facility] [place] [address] PCP - General 02/19/24 Ángela Millard APRN [address] [place] [address] Nurse Practitioner Neurosurgery 09/17/21 documented as of this encounter
--- OUTSIDE RECORDS SUMMARY | 2025-02-14 13:58 | XMS_ITS | Clinical Summary ---
Author Organization [facility] Address [address] [place] [address] Care Team Providers Care Orthopedic Rn Name Role Phone Ángela Millard WELDING MACHINE TENDER Unavailable [phone] Inna Serrano WELDING MACHINE TENDER Primary Care Provider [phone] Allergies Active Allergy Reactions Criticality Noted Date [...] 1 (one) time each day. 3 Active isosorbide mononitrate ER (Imdur) 120 MG 24 hr tablet Take 1 tablet (120 mg) by mouth 1 (one) time each day. 3 Active nitroglycerin (Nitrostat) 0.4 MG SL tablet 3 Active rosuvastatin (Crestor) 40 MG tablet 3 Active naloxone (Narcan) 4 mg/0.1 mL nasal spray 1. Give 1 spray in nostril for no/slow breathing or cannot wake after opioid use 2. Call 911 3. Repeat in other nostril if symptoms continue 1 each 4 Active pantoprazole (Protonix) 40 MG EC tablet 4 Active metoclopramide (Reglan) 10 MG tablet Take 1 tablet (10 mg) by mouth. 4 Active tamsulosin (Flomax) 0.4 MG 24 hr capsule Take 1 capsule by mouth daily. 5 Active LORazepam (Ativan) 0.5 MG tablet Take 1 tablet by mouth 2 times a day. 5 Active cyclobenzaprine (Flexeril) 5 MG tablet Take 1 tablet by mouth 2 times a day. 120 tablet 3 5 Active NIFEdipine XL (Procardia XL) 90 MG 24 hr tablet Take 1 tablet by mouth every evening. 90 tablet 3 5 Active carvedilol (Coreg) 12.5 MG tablet Take 1 tablet by mouth 2 times a day. 90 tablet 3 5 Active HYDROcodone-nelida taminophen ([place]) 5-325 MG tablet Take 1 tablet by mouth every 6 hours as needed for severe pain. 120 tablet 5 Active doxazosin (Cardura) 4 MG tablet Take 1 tablet (4 mg) by mouth every night. 3 01/23/20 25 Discontinu ed(Per Patient Report) metOLazone (Zaroxolyn) 5 MG tablet Take 1 tablet (5 mg) by mouth 1 (one) time each day. 3 01/23/20 25 Discontinu ed(Per Patient Report) metoprolol succinate XL (Toprol-XL) 100 MG 24 hr tablet Take 1 tablet (100 mg) by mouth 1 (one) time each day. 3 01/23/20 25 Discontinu ed(Other) NIFEdipine XL (Procardia XL) 90 MG 24 hr tablet 3 01/23/20 25 Discontinu ed(Reorder ) HYDROcodone-nelida taminophen ([place]) 5-325 MG tablet Take 1 tablet by mouth every 6 hours as needed for severe pain. 120 tablet 5 02/11/20 25 Discontinu ed(Reorder ) Active Problems Problem Noted Date Diagnosed Date Tobacco use disorder 09/24/2024 Second hand smoke exposure 09/24/2024 Chronic back pain 08/21/2018 Elbow pain 08/17/2017 Resolved Problems Problem Noted Date Diagnosed Date Resolved Date DJD (degenerative joint disease) 05/12/2014 02/09/2025 Encounters Date Type Department Care Team Description 02/11/2025 Telephone [facility] [address] [facility], [address] [place] [address] Mandie Olsen, PharmD 02/10/2025 Refill [facility] [address] [place] [phone] Dee Dee Jenkins MD 02/05/2025 Telephone [facility] [address] [place] [address] Leslie Suarez DO HCN Status Update Call #1 02/03/2025 Telephone [facility] [address] [facility], [address] [place] [id number] Aysha Crews MD 02/03/2025 Telephone [facility] [address] [place] [address] Leslie Suarez, HCN - Patient Message 02/03/2025 Telephone [facility] Nephrology, Bone & Mineral Metabolism [address] [facility], [address] [place] [address] David Workman MD HCN - Patient Message 01/27/2025 Telephone [facility] Nephrology, Bone & Mineral Metabolism [address] [facility], [address] [place] [address] David Workman MD 01/24/2025 Telephone [facility] Nephrology, Bone & Mineral Metabolism [address] [facility], [address] [place] [address] David Workman MD 01/22/2025 Telephone [facility] Nephrology, Bone & Mineral Metabolism [address] [facility], [address] [place] [address] David Workman MD HCN Clinical Concern/Question 01/21/2025 Telephone [facility] [address] [place] [address] Leslie Suarez DO HCN - Patient Message 01/15/2025 Telephone [facility] [address] [place] [address] Leslie Suarez DO HCN - Patient Message 01/14/2025 Telephone [facility] Nephrology, Bone & Mineral Metabolism [address], [address] [place] [address] David Workman MD HCN - Patient Message 01/09/2025 Telephone [facility] Nephrology, Bone & Mineral Metabolism [address], [address] [place] [address] David Workman MD HCN - Patient Message 01/08/2025 2:00 PM EDT Office Visit [facility] Nephrology, Bone & Mineral Metabolism [address], [address] [place] [address] David Workman MD CKD stage 3a, GFR 45-59 ml/min ([facility]) (Primary Dx) 01/08/2025 Telephone [facility] [address] [place] [address] Leslie Suarez DO HCN Status Update Call #2 01/08/2025 Travel 01/01/2025 Travel 12/30/2024 Telephone [facility] Nephrology, Bone & Mineral Metabolism [address], [address] [place] [address] David Workman MD 12/23/2024 Telephone [facility] Nephrology, Bone & Mineral Metabolism [address], [address] [place] [address] Greta Elliott MD HCN Clinical Concern/Question 12/19/2024 Orders Only [facility] [address] [place] [address] Leslie Suarez DO High risk medication use (Primary Dx) 12/19/2024 Telephone [facility] [address] [place] [address] Leslie Suarez DO HCN - Patient Message 12/19/2024 Telephone [facility] Nephrology, Bone & Mineral Metabolism [address], [address] [place] [address] David Workman MD HCN Clinical Concern/Question 12/19/2024 Travel 12/13/2024 Refill [facility] [address] [place] [address] Leslie Suarez DO 12/13/2024 Telephone [facility] [facility] Nephrology, Bone & Mineral Metabolism [address] [facility], [address] [place] [address] None, None HCN - Patient Message 12/13/2024 Refill [facility] [address] [place] [address] Leslie Suarez DO 12/09/2024 Telephone [facility] [address] [place] [phone] Leslie Suarez DO HCN - Patient Message 12/09/2024 Telephone [facility] [address] [place] [address] Leslie Suarez DO HCN - Patient Message 12/03/2024 Telephone [facility] [address] [facility], [address] [place] [phone] Aysha Crews MD 12/02/2024 Telephone [facility] [address] [place] [address] [place] [address] Leslie Suarez DO HCN - Patient Message from Last 3 Months Immunizations Immunization Administration [...] [facility] [address] [place] [address] Leslie Suarez DO [address] [place] [phone] 04/08/2025 12:00 PM EST Office Visit [facility] Nephrology, Bone & Mineral Metabolism [address], [address] [place] [address] David Workman MD [address] [place] [address] 09/30/2025 10:10 AM EDT Appointment [facility] [address] [place] [phone] 09/30/2025 11:30 AM EDT Office Visit [facility] [address], [address] [place] [address] Aysha Crews MD [address] [place] [address] Health Maintenance Due Date Last [...] Vaccine: 50+ Years (2 of 2 - PPSV23, PCV20, or PCV21) 04/01/2024 02/05/2024, 05/23/2018 [id number] Vaccine (1 - season) 2025 [facility]-Influenza Vaccine (#1) 2025 03/01/2011 [...] use from Last 3 Months Results * [place] Lambda Quant Free Light Chains w/Ratio (01/08/2025 3:44 PM EDT) [place] Lambda Free Light Chain Ratio 0.98 0.26 - 1.65 Ratio 01/09/2025 9:12 AM EDT [facility] [place] Quant Free Light Chains 18.92 3.30 - 19.40 mg/L 01/09/2025 9:12 AM EDT [facility] Lambda Quant Free Light Chains 19.21 5.71 - 26.30 mg/L 01/09/2025 9:12 AM EDT [facility] Blood Venous blood specimen / Unknown Venipuncture / Unknown 01/08/2025 3:44 PM EDT 01/08/2025 3:44 PM EDT Narrative [facility] - 01/09/2025 9:12 AM EDT Undetected [...] with the testing laboratory. Test performed at [facility]. David Workman MD LAB BLOOD ORDERABLES Final Resul t Performing Organization Address City/[facility]/ZIP Co de Phone Number [facility] [address] [place] [address] * Total Protein, Serum (01/08/2025 3:44 PM EDT) Total Protein 6.9 6.2 - 7.7 g/dL 01/08/2025 5:58 PM EDT [facility] Blood Venous blood specimen / Unknown Venipuncture / Unknown 01/08/2025 3:44 PM EDT 01/08/2025 3:44 PM EDT David Workman MD LAB BLOOD ORDERABLES Final Resul t Performing Organization Address City/[facility]/ZIP Co de Phone Number [facility] [address] [place] [address] * Protein Electrophoresis, Serum (01/08/2025 3:44 PM EDT) Albumin Electrophoresis, Serum 4.1 3.6 - 4.7 g/dL 01/09/2025 2:51 AM EDT [facility] Alpha 1 Globulin Electrophoresis, Serum 0.4 0.2 - 0.4 g/dL 01/09/2025 2:51 AM EDT [facility] Alpha 2 Globulin Electrophoresis, Serum 0.8 0.5 - 0.9 g/dL 01/09/2025 2:51 AM EDT [facility] Beta 1 Globulin Electrophoresis, Serum 0.4 0.3 - 0.5 g/dL 01/09/2025 2:51 AM EDT [facility] Beta 2 Globulin Electrophoresis, Serum 0.4 0.2 - 0.5 g/dL 01/09/2025 2:51 AM EDT [facility] Gamma Globulin Electrophoresis, Serum 0.9 0.6 - 1.5 g/dL 01/09/2025 2:51 AM EDT [facility] Interpretation, Serum Protein Electrophoresis Pathology report to follow. 01/09/2025 2:51 AM EDT [facility] Blood Venous blood specimen / Unknown Venipuncture / Unknown 01/08/2025 3:44 PM EDT 01/08/2025 3:44 PM EDT us David Workman MD LAB BLOOD ORDERABLES Final Resul t [facility] [address] [place] [address] * Protein electrophoresis serum, pathologist interpretation (01/08/2025 3:44 PM EDT) Clinical Diagnosis, SPEP CKD stage 3a 01/09/2025 11:33 AM EDT [facility] Interpretation , SPEP There are no significant abnormalities in the protein electrophoretic pattern. A resident was involved in the service. I attest I examined the relevant preparations for the specimens and confirmed the diagnosis or interpretation. 01/09/2025 11:33 AM EDT [facility] Pathologist Signature, SPEP Reviewed by: Cory Valenzuela MD 01/09/2025 11:33 AM EDT [facility] LAB CP ASR DISCLAIMER Yes 01/09/2025 11:33 AM EDT [facility] Blood Venous blood specimen / Unknown Venipuncture / Unknown 01/08/2025 3:44 PM EDT 01/08/2025 3:44 PM EDT us David Workman MD LAB PATHOLOGY ORDERABLES Final R esult Performing Organization Address [facility] Co de Phone Number [facility] [address] [place] [address] * Vitamin D 25 Hydroxy (01/08/2025 3:44 PM EDT) Vitamin D 25 Hydroxy 20.2 20.0 - 80.0 ng/mL 01/08/2025 8:13 PM EDT [facility] Blood Venous blood specimen / Unknown Venipuncture / Unknown 01/08/2025 3:44 PM EDT 01/08/2025 3:44 PM EDT Narrative [facility] - 01/08/2025 8:13 PM EDT Testing performed on Panz[place], standardized against NIST SRM 2972. When testing [...] ORDERABLES Final Resul t Performing Organization Address [facility] Co de Phone Number [facility] [address] [place] [address] * (ABNORMAL) CBC and Differential (01/08/2025 3:44 PM EDT) WBC Count 9.82 3.70 - 10.30 10*3/uL LAB HEMATOLOGY METHOD 01/08/2025 5:22 PM EDT [facility] RBC Count 5.41 4.60 - 6.10 10*6/uL LAB HEMATOLOGY METHOD 01/08/2025 5:22 PM EDT [facility] HGB 17.0 13.7 - 17.5 g/dL LAB HEMATOLOGY METHOD 01/08/2025 5:22 PM EDT [facility] HCT 49.6 40.0 - 51.0 % LAB HEMATOLOGY METHOD 01/08/2025 5:22 PM EDT [facility] Platelet Count 152(L) 155 - 369 10*3/uL LAB HEMATOLOGY METHOD 01/08/2025 5:22 PM EDT [facility] MCV 92 79 - 98 fL LAB HEMATOLOGY METHOD 01/08/2025 5:22 PM EDT [facility] MCH 31.4 26.0 - 32.0 pg LAB HEMATOLOGY METHOD 01/08/2025 5:22 PM EDT [facility] MCHC 34.3 30.7 - 35.5 g/dL LAB HEMATOLOGY METHOD 01/08/2025 5:22 PM EDT [facility] RDW 12.1 11.5 - 14.5 % LAB HEMATOLOGY METHOD 01/08/2025 5:22 PM EDT [facility] MPV 12.4 8.8 - 12.5 fL LAB HEMATOLOGY METHOD 01/08/2025 5:22 PM EDT [facility] nRBC 0.0 <=0.0 per 100 WBCs LAB HEMATOLOGY METHOD 01/08/2025 5:22 PM EDT [facility] Differential Type Automated LAB HEMATOLOGY METHOD 01/08/2025 5:22 PM EDT [facility] Neutrophils % 66 % LAB HEMATOLOGY METHOD 01/08/2025 5:22 PM EDT [facility] Lymphocytes % 24 % LAB HEMATOLOGY METHOD 01/08/2025 5:22 PM EDT [facility] Monocytes % 7 % LAB HEMATOLOGY METHOD 01/08/2025 5:22 PM EDT [facility] Eosinophils % 2 % LAB HEMATOLOGY METHOD 01/08/2025 5:22 PM EDT [facility] Basophils % 1 % LAB HEMATOLOGY METHOD 01/08/2025 5:22 PM EDT [facility] Immature Granulocytes % 0 % LAB HEMATOLOGY METHOD 01/08/2025 5:22 PM EDT [facility] Neutrophils Absolute 6.44(H) 1.60 - 6.10 10*3/uL LAB HEMATOLOGY METHOD 01/08/2025 5:22 PM EDT [facility] Lymphocytes Absolute 2.34 1.20 - 3.90 10*3/uL LAB HEMATOLOGY METHOD 01/08/2025 5:22 PM EDT [facility] Monocytes Absolute 0.66 0.30 - 0.90 10*3/uL LAB HEMATOLOGY METHOD 01/08/2025 5:22 PM EDT [facility] Eosinophils Absolute 0.24 0.00 - 0.50 10*3/uL LAB HEMATOLOGY METHOD 01/08/2025 5:22 PM EDT [facility] Basophils Absolute 0.10 0.00 - 0.10 10*3/uL LAB HEMATOLOGY METHOD 01/08/2025 5:22 PM EDT [facility] Immature Granulocytes Absolute 0.04 0.00 - 0.06 10*3/uL LAB HEMATOLOGY METHOD 01/08/2025 5:22 PM EDT [facility] Blood Venous blood specimen / Unknown Venipuncture / Unknown 01/08/2025 3:44 PM EDT 01/08/2025 3:44 PM EDT Narrative [facility] - 01/08/2025 5:22 PM EDT Therapeutic decision making should be based on absolute values, rather than percentages. us David Workman MD LAB BLOOD ORDERABLES Final Resul t Performing Organization Address City/[facility] Co de Phone Number [facility] [address] [place] [address] * (ABNORMAL) PTH Intact Total (01/08/2025 3:44 PM EDT) PTH Intact Total 107(H) 9 - 77 pg/mL 01/08/2025 8:08 PM EDT [facility] Blood Venous blood specimen / Unknown Venipuncture / Unknown 01/08/2025 3:44 PM EDT 01/08/2025 3:44 PM EDT Narrative [facility] - 01/08/2025 8:08 PM EDT Assay performed by immunoassay at the [facility]. Performed on [employer] chemiluminescent immunoassay, tractable to the World Health Organization's first international standard for PTH from the NIBSC, Code 79/500. Results obtained from different test methods or kits cannot be used interchangeably. us David Workman MD LAB BLOOD ORDERABLES Final Resul t Performing Organization Address City/[facility]/ZIP Co de Phone Number [facility] [address] [place] [address] * (ABNORMAL) Renal Function Panel, Plasma (01/08/2025 3:44 PM EDT) [facility] Glucose, Plasma 96 74 - 99 mg/dL 01/08/2025 5:54 PM EDT [facility] BUN, Plasma 8 7 - 21 mg/dL 01/08/2025 5:54 PM EDT [facility] Creatinine, Plasma 1.26(H) 0.70 - 1.20 mg/dL 01/08/2025 5:54 PM EDT [facility] BUN/Creatinine Ratio 6 01/08/2025 5:54 PM EDT [facility] Sodium, Plasma 140 136 - 145 mmol/L 01/08/2025 5:54 PM EDT [facility] Potassium, Plasma 3.5(L) 3.6 - 4.9 mmol/L 01/08/2025 5:54 PM EDT [facility] Chloride, Plasma 102 97 - 107 mmol/L 01/08/2025 5:54 PM EDT [facility] CO2, Plasma 26 22 - 29 mmol/L 01/08/2025 5:54 PM EDT [facility] Anion Gap 12 6 - 16 mmol/L 01/08/2025 5:54 PM EDT [facility] Total Calcium, Plasma 9.1 8.9 - 10.2 mg/dL 01/08/2025 5:54 PM EDT [facility] Phosphorus, Plasma 3.3 2.5 - 4.5 mg/dL 01/08/2025 5:54 PM EDT [facility] Albumin, Plasma 4.4 3.5 - 5.2 g/dL 01/08/2025 5:54 PM EDT [facility] eGFRcr 66.5 mL/min/1.7 3m*2 01/08/2025 5:54 PM EDT [facility] Comment:Reported eGFRcr in m L/min/1.73m2 is based the CKD-EPI 2020 equation that does not use a race coefficient. Blood Venous blood specimen / Unknown Venipuncture / Unknown 01/08/2025 3:44 PM EDT 01/08/2025 3:44 PM EDT us David Workman MD LAB BLOOD ORDERABLES Final Resul t [facility] [address] [place] [address] * Albumin-creatinine ratio, urine, random (01/08/2025 3:40 PM EDT) Microalbumin, Urine 1.78 <1.9 mg/dL 01/08/2025 6:10 PM EDT [facility] Creatinine, Urine 87 mg/dL 01/08/2025 6:10 PM EDT [facility] Albumin/Creati nine Ratio 20 0 - 30 mg/g creatinine 01/08/2025 6:10 PM EDT [facility] Urine Urine specimen obtained by clean catch procedure / Unknown Non-blood Collection / Unknown 01/08/2025 3:40 PM EDT 01/08/2025 3:40 PM EDT us David Workman MD LAB URINE ORDERABLES Final Resul t Performing Organization Address [facility] de Phone Number [facility] [address] [place] [address] * Protein, Random, Urine with Creatinine (01/08/2025 3:40 PM EDT) Protein, Urine 13 mg/dL 01/08/2025 5:55 PM EDT [facility] Creatinine, Urine 86 mg/dL 01/08/2025 5:55 PM EDT [facility] Protein/Creati nine Ratio 0.2 mg/mg Creat 01/08/2025 5:55 PM EDT [facility] Urine Urine specimen obtained by clean catch procedure / Unknown Non-blood Collection / Unknown 01/08/2025 3:40 PM EDT 01/08/2025 3:40 PM EDT us David Workman MD LAB URINE ORDERABLES Final Resul t Performing Organization Address [facility] Co de Phone Number [facility] [address] [place] [address] * Urinalysis with reflex microscopic (Culture NOT Included) (01/08/2025 3:40 PM EDT) Color, Urine Yellow LAB URINALYSIS - AUTOMATED METHOD 01/08/2025 5:15 PM EDT [facility] Clarity, Urine Clear LAB URINALYSIS - AUTOMATED METHOD 01/08/2025 5:15 PM EDT [facility] Spec [place], Urine 1.010 1.005 - 1.030 LAB URINALYSIS - AUTOMATED METHOD 01/08/2025 5:15 PM EDT [facility] pH, Urine 6.0 5.0 - 8.0 LAB URINALYSIS - AUTOMATED METHOD 01/08/2025 5:15 PM EDT [facility] Protein, Urine Negative Negative mg/dL LAB URINALYSIS - AUTOMATED METHOD 01/08/2025 5:15 PM EDT [facility] Glucose, Urine Negative Negative mg/dL LAB URINALYSIS - AUTOMATED METHOD 01/08/2025 5:15 PM EDT [facility] Ketones, Urine Negative Negative mg/dL LAB URINALYSIS - AUTOMATED METHOD 01/08/2025 5:15 PM EDT [facility] Blood, Urine Negative Negative LAB URINALYSIS - AUTOMATED METHOD 01/08/2025 5:15 PM EDT [facility] Bilirubin, Urine Negative Negative LAB URINALYSIS - AUTOMATED METHOD 01/08/2025 5:15 PM EDT [facility] Urobilinogen, Urine 0.2 0.2 to 1.0 mg/dL LAB URINALYSIS - AUTOMATED METHOD 01/08/2025 5:15 PM EDT [facility] Leukocytes, Urine Negative Negative LAB URINALYSIS - AUTOMATED METHOD 01/08/2025 5:15 PM EDT [facility] Nitrite, Urine Negative Negative LAB URINALYSIS - AUTOMATED METHOD 01/08/2025 5:15 PM EDT [facility] Urine Urine specimen obtained by clean catch procedure / Unknown Non-blood Collection / Unknown 01/08/2025 3:40 PM EDT 01/08/2025 3:40 PM EDT us David Workman MD LAB URINE ORDERABLES Final Resul t [facility] [address] [place] [address] * (ABNORMAL) Pain Management, Quantitative Urine Drug Testing (01/08/2025 1:38 PM EDT) [facility] [place] Alprazolam <20 <20 ng/mL 01/11 9:44 AM EDT [facility] [place] Midazolam <20 <20 ng/mL 2024 9:44 AM EDT [facility] [place] Triazolam <20 <20 ng/mL 2024 9:44 AM EDT [facility] Alprazolam <10 <10 ng/mL 01/11/2025 9:44 AM EDT [facility] Aminoclonazepam <20 <20 ng/mL 9:44 AM EDT [facility] Amphetamine <50 <50 ng/mL 01/11/2025 9:44 AM EDT [facility] Benzoylecgonine <50 <50 ng/mL 9:44 AM EDT [facility] Buprenorphine <10 <10 ng/mL 01/11/2025 9:44 AM EDT [facility] Buprenorphine Glucuronide <50 <50 ng/mL 01/11/2025 9:44 AM EDT [facility] Butalbital <50 <50 ng/mL 01/11/2025 9:44 AM EDT [facility] 9 Carboxy THC <10 <10 ng/mL 01/11/2025 9:44 AM EDT [facility] 9 Carboxy THC Glucuronide <25 <25 ng/mL 01/11/2025 9:44 AM EDT [facility] Clonazepam <10 <10 ng/mL 01/11/2025 9:44 AM EDT [facility] Codeine <50 <50 ng/mL 01/11/2025 9:44 AM EDT [facility] Codeine Glucuronide <50 <50 ng/mL 01/11 9:44 AM EDT [facility] Cyclobenzaprine <50 <50 ng/mL 9:44 AM EDT [facility] Desmethyl Tramadol <50 <50 ng/mL 2024 9:44 AM EDT [facility] Diazepam <10 <10 ng/mL 01/11/2025 9:44 AM EDT [facility] EDDP - Methadone Metabolite <50 <50 ng/mL 01/11/2025 9:44 AM EDT [facility] Fentanyl <1 <1 ng/mL 01/11/2025 9:44 AM EDT [facility] Hydrocodone 168(H) <50 ng/mL 01/11/2025 9:44 AM EDT [facility] Hydromorphone <50 <50 ng/mL 01/11/2025 9:44 AM EDT [facility] Hydromorphone Glucuronide 157(H) <50 ng/mL 01/11/2025 9:44 AM EDT [facility] Lorazepam <20 <20 ng/mL 01/11/2025 9:44 AM EDT [facility] Lorazepam Glucuronide <50 <50 ng/mL 01/11/2025 9:44 AM EDT [facility] MDA <50 <50 ng/mL 01/11/2025 9:44 AM EDT [facility] MDMA <50 <50 ng/mL 01/11/2025 9:44 AM EDT [facility] Meperidine <50 <50 ng/mL 01/11/2025 9:44 AM EDT [facility] Methadone <50 <50 ng/mL 01/11/2025 9:44 AM EDT [facility] Methamphetamine <50 <50 ng/mL 9:44 AM EDT [facility] Methylphenidate <50 <50 ng/mL 9:44 AM EDT [facility] 6 Monoacetyl morphine <10 <10 ng/mL 01/11/2025 9:44 AM EDT [facility] Morphine <50 <50 ng/mL 01/11/2025 9:44 AM EDT [facility] Morphine Glucuronide <50 <50 ng/mL 12/21 9:44 AM EDT [facility] Naloxone <50 <50 ng/mL 01/11/2025 9:44 AM EDT [facility] Naloxone Glucuronide <50 <50 ng/mL 12/21 9:44 AM EDT [facility] Norbuprenorphine <10 <10 ng/mL 01/12/20 9:44 AM EDT [facility] Norbuprenorphine Glucuronide <50 <50 ng/mL 01/11/2025 9:44 AM EDT [facility] Nordiazepam <20 <20 ng/mL 01/11/2025 9:44 AM EDT [facility] Norfentanyl <2 <2 ng/mL 01/11/2025 9:44 AM EDT [facility] Normeperidine <50 <50 ng/mL 01/11/2025 9:44 AM EDT [facility] PCP Quant, Ur <50 <50 ng/mL 01/11/2025 9:44 AM EDT [facility] Phenobarbital <50 <50 ng/mL 01/11/2025 9:44 AM EDT [facility] Oxazepam <20 <20 ng/mL 01/11/2025 9:44 AM EDT [facility] Oxazepam Glucuronide <50 <50 ng/mL 12/21 9:44 AM EDT [facility] Oxycodone <50 <50 ng/mL 01/11/2025 9:44 AM EDT [facility] Oxymorphone <50 <50 ng/mL 01/11/2025 9:44 AM EDT [facility] Oxymorphone Glucuronide <50 <50 ng/mL 01/11/2025 9:44 AM EDT [facility] Secobarbital <50 <50 ng/mL 01/11/2025 9:44 AM EDT [facility] Tramadol <50 <50 ng/mL 01/11/2025 9:44 AM EDT [facility] Temazepam <20 <20 ng/mL 01/11/2025 9:44 AM EDT [facility] Temazepam Glucuronide <50 <50 ng/mL 01/11/2025 9:44 AM EDT [facility] Urine Urine specimen obtained by clean catch procedure / Unknown Non-blood Collection / Unknown 01/08/2025 1:38 PM EDT 01/08/2025 1:38 PM EDT Narrative [facility] - 01/11/2025 9:44 AM EDT This [...] laboratory. Test performed by LC-MS/MS at the [facility]. This test was developed and its performance characteristics determined by [facility] [employer] [facility]. It has not been cleared or approved by the FDA. The laboratory is regulated under CLIA as qualified to perform high-complexity testing. This test is used for clinical purposes. us Leslie Morrison DO LAB URINE ORDERABLES Final Result [facility] [address] [place] [address] from Last 3 Months Insurance [employer] Care Teams Orthopedic Rn Relationship Specialty Start Date End Date Inna Serrano APRN [address] [place] [address] PCP - General 02/19/24 Ángela Millard APRN [address] [place] [address] Nurse Practitioner Neurosurgery 09/17/21
--- OUTSIDE RECORDS SUMMARY | 2025-02-14 13:58 | XMS_ITS | Encounter Summary ---
Author Organization Healthcare Address [address] [place] [address] Care Team Providers Care Vp Sales Name Role Phone Antwan Esparza MD Primary Care Provider + [phone] Ángela Millard APRN Unavailable +[phone] Inna Serrano APRN Primary Care Provider + [phone] Encounter Details Date Type Department Care Team ([facility] Contact Info) Description 08/10/2021 Orders Only External Location [address] [place] [address] Provider, External Social History Tobacco Use Types [...] Upcoming Encounters Date Type Department Care Team ([facility] Contact Info) Description 02/19/2025 3:20 PM EDT Office Visit [facility] [address] [place] [address] Leslie Suarez DO [address] [place] [address] 04/08/2025 12:00 PM EST Office Visit Professional [facility] Nephrology, Bone & Mineral Metabolism [address] [facility], [address] [place] [address] David Workman MD [address] [place] [address] 09/30/2025 10:10 AM EDT Appointment [facility] Radiology [address] [place] [address] 09/30/2025 11:30 AM EDT Office Visit [facility] Head, Neck & Respiratory [address] [facility], 2nd [place] [address] Aysha Crews MD [address] [place] [address] documented as of this encounter [...] documented as of this encounter Care Teams Vp Sales Relationship Specialty Start Date End Date Antwan Esparza MD [address] [place] [address] PCP - General 12/14/20 02/18/24 Inna Serrano APRN [facility] [place] [address] PCP - General 02/19/24 Ángela Millard APRN [address] [place] [address] Nurse Practitioner Neurosurgery 09/17/21 documented as of this encounter
--- OUTSIDE RECORDS SUMMARY | 2025-02-14 13:58 | XMS_ITS | Encounter Summary ---
Author Organization Healthcare Address [address] [place] [address] Care Team Providers Care Orthopaedic Doctor Name Role Phone Delmer Fritz MD Primary Care Provider [phone] Antwan Esparza MD Primary Care Provider + [phone] Ángela Millard PHYTOPATHOLOGY TEACHER Unavailable +[phone] Inna Serrano APRN Primary Care Provider + [phone] Encounter Details Date Type Department Care Team (Late st Contact Info) Description 10/30/2012 Orders Only External Location [address] [place] [address] Provider, External Social History Tobacco Use Types [...] Visit [facility] [address] [place] [address] Leslie Suarez DO [address] [place] [address] 04/08/2025 12:00 PM EST Office Visit Professional [facility] Nephrology, Bone & Mineral Metabolism [address] [facility], [address] [place] [address] David Workman MD [address] [place] [address] 09/30/2025 10:10 AM EDT Appointment [facility] G Radiology [address] [place] [address] 09/30/2025 11:30 AM EDT Office Visit Pav [facility] Head, Neck & Respiratory [address] [facility], 2nd [place] [address] Aysha Crews MD [address] [facility] [address] [place] [address] documented as of this encounter [...] on filedocumented in this encounter Care Teams Orthopaedic Doctor Relationship Specialty Start Date End Date Delmer Fritz MD [address] [facility] [address] [place] [address] PCP - General 10/02/20 12/13/20 Antwan Esparza MD [address] [place] [address] PCP - General 12/14/20 02/18/24 Inna Serrano APRN [address] [place] [address] PCP - General 02/19/24 Ángela Millard APRN [address] [facility] [address] [place] [address] Nurse Practitioner Neurosurgery 09/17/21 documented as of this encounter
--- OUTSIDE RECORDS SUMMARY | 2025-02-14 13:58 | XMS_ITS | Encounter Summary ---
Author Organization Healthcare Address [address] [place] [address] Care Team Providers Care Technical Sme Name Role Phone Delmer Fritz MD Primary Care Provider [phone] Antwan Esparza MD Primary Care Provider + [phone] Ángela Millard CHANNELER RUNNER Unavailable [phone] Inna Serrano APRN Primary Care Provider [phone] Encounter Details Date Type Department Care Team (Late st Contact Info) Description 07/20/2012 Orders Only External Location [address] [place] [address] Vin Ji MD [address] [facility] [place], [place] [id number] Social History Tobacco Use Types Packs/Day Years [...] [facility] [address] [place] [address] Leslie Suarez DO [address] [facility] [address] [place] [address] 04/08/2025 12:00 PM EST Office Visit Professional [facility] Nephrology, Bone & Mineral Metabolism [address] [facility], [address] [place] [address] David Workman MD [address] [place] [address] 09/30/2025 10:10 AM EDT Appointment [facility] G Radiology [address] [place] [address] 09/30/2025 11:30 AM EDT Office Visit Pav [facility] Head, Neck & Respiratory [address] [facility], 2nd [place] [address] Aysha Crews MD [address] [place] [address] documented as of this encounter [...] on filedocumented in this encounter Care Teams Technical Sme Relationship Specialty Start Date End Date Delmer Fritz MD [address] [facility] [address] [place] [address] PCP - General 10/02/20 12/13/20 Antawn Esparza MD [address] [place] [address] PCP - General 12/14/20 02/18/24 Inna Serrano APRN [address] [place] [address] PCP - General 02/19/24 Ángela Millard APRN [address] [place] [address] Nurse Practitioner Neurosurgery 09/17/21 documented as of this encounter
--- OUTSIDE RECORDS SUMMARY | 2025-02-14 13:58 | XMS_ITS | Encounter Summary ---
Author Organization [facility] Address [address] [place] [address] Care Team Providers Care Console Assembler Name Role Phone Ángela Millard Ev RACK MAKER Unavailable [phone] Inna Serrano APRN Primary Care Provider [phone] Reason for Visit * Reason Onset Date Comments HCN - Patient Message 01/09/2025 Encounter Details Date Type Department Care Team ([facility] st Contact Info) Description 01/09/2025 Telephone [facility], [facility] & Mineral Met[facility] [address] [facility], [address] [place] [address] David Workman MD [address] [place] [address] HCN - Patient Message Social History [...] PM EDT Renal ultrasound order faxed to [facility] [phone] * Telephone Encounter - Celina Arce - 01/10/2025 11:22 AM EDT Secure chat sent to the provider, Dr. Workman * Telephone Encounter - Neyda Guzman - 01/10/2025 8:04 AM EDT Status Update Call #1 1st call regarding the status of the initial request. Best contact number: [phone] (mobile) Optimal time of day to reach [...] will receive notification of the communication/outcome via [employer]. * Telephone Encounter - Rdaha Cruz LPN - 01/09/2025 4:03 PM EDT [...] optimal time of day to reach caller: [phone] Note: Please do not reply to this [...] [facility] [address] [place] [address] Leslie Suarez DO [address] [facility] [address] [place] [address] 04/08/2025 12:00 PM EST Office Visit [facility]phrology, Bone & Mineral Metabolism [address] [facility], [address] [place] [address] David Workman MD [address] [place] [address] 09/30/2025 10:10 AM EDT Appointment [facility] G Radiology [address] [place] [address] 09/30/2025 11:30 AM EDT Office Visit Pav CC Head, Neck & Respiratory 800 [facility], 2nd [place] [address] Aysha Crews MD [address] [facility] [address] [place] [address] documented as of this encounter Visit Diagnoses Not on filedocumented in this encounter Additional Health Concerns Assessment Noted Time A fall risk assessment has been complete d for the patient 01/08/2025 1:58 PM EDT A Body Mass Index follow-up plan has been documented for the patient 01/08/2025 3:33 PM EDT documented as of this encounter Care Teams Console Assembler Relationship Specialty Start Date End Date Inna Serrano APRN [address] [place] [address] PCP - General 02/19/24 Ángela Millard, BELINDA [address] [place] [address] Nurse Practitioner Neurosurgery 09/17/21 documented as of this encounter
--- OUTSIDE RECORDS SUMMARY | 2025-02-14 13:58 | XMS_ITS | Encounter Summary ---
Author Organization Healthcare Address [address] [place] [address] Care Team Providers Care Bowling Ball Finisher Name Role Phone Antwan Esparza MD Primary Care Provider + [phone] Ángela Millard ASBESTOS MICROSCOPIST Unavailable [phone] Inna Serrano APRN Primary Care Provider + [phone] Encounter Details Date Type Department Care Team (Late Contact Info) Description 03/08/2021 Orders Only External Location [address] [place] [address] Provider, External Social History Tobacco Use Types [...] Visit [facility] at [facility] [address] [place] [address] Leslie Suarez DO [address] [place] [address] 04/08/2025 12:00 PM EST Office Visit [facility] Nephrology, Bone & Mineral Metabolism [address] [facility], [address] [place] [address] David Workman MD [address] [place] [address] 09/30/2025 10:10 AM EDT Appointment [facility] G Radiology [address] [place] [address] 09/30/2025 11:30 AM EDT Office Visit Pav CC Head, Neck & Respiratory [address] [facility], 2nd [place] [address] Aysha Crews MD [address] [place] [address] documented as of this encounter [...] documented as of this encounter Care Teams Bowling Ball Finisher Relationship Specialty Start Date End Date Antwan Esparza MD [address] [place] [address] PCP - General 12/14/20 02/18/24 Inna Serrano APRN [facility] [place] [address] PCP - General 02/19/24 Ángela Millard APRN [address] [place] [address] Nurse Practitioner Neurosurgery 09/17/21 documented as of this encounter
--- OUTSIDE RECORDS SUMMARY | 2025-02-14 13:58 | XMS_ITS | Encounter Summary ---
Author Organization Healthcare Address [address] [place] [address] Care Team Providers Care Electrical Tester Battery Name Role Phone Antwan Esparza MD Primary Care Provider + [phone] Ángela Millard APRN Unavailable [phone] Inna Serrano APRN Primary Care Provider + [phone] Encounter Details Date Type Department Care Team ([facility] Contact Info) Description 08/06/2021 Orders Only External Location [address] [place] [address] Provider, External Social History Tobacco Use Types [...] Upcoming Encounters Date Type Department Care Team ([facility] Contact Info) Description 02/19/2025 3:20 PM EDT Office Visit [facility] [address] [place] [address] Leslie Suarez DO [address] [place] [address] 04/08/2025 12:00 PM EST Office Visit Professional [facility] Nephrology, Bone & Mineral Metabolism [address] [facility], [address] [place] [address] David Workman MD [address] [place] [address] 09/30/2025 10:10 AM EDT Appointment [facility] G Radiology [address] [place] [address] 09/30/2025 11:30 AM EDT Office Visit Pav CC Head, Neck & Respiratory [address] [facility], 2nd [place] [address] Aysha Crews MD [address] [place] [address] documented as of this encounter [...] documented as of this encounter Care Teams Electrical Tester Battery Relationship Specialty Start Date End Date Antwan Esparza MD [address] [place] [address] PCP - General 12/14/20 02/18/24 Inna Serrano APRN [facility] [place] [address] PCP - General 02/19/24 Ángela Millard APRN [address] [place] [address] [address] Nurse Practitioner Neurosurgery 09/17/21 documented as of this encounter
--- OUTSIDE RECORDS SUMMARY | 2025-02-14 13:58 | XMS_ITS | Encounter Summary ---
Author Organization Healthcare Address [address] [place] [address] Care Team Providers Care Account Services Manager Name Role Phone Antwan Esparza MD Primary Care Provider + [phone] Ángela Millard OFFICE SERVICES ASSOCIATE Unavailable [phone] Inna Serrano OFFICE SERVICES ASSOCIATE Primary Care Provider + [phone] Encounter Details Date Type Department Care Team (Late st Contact Info) Description 01/25/2023 Orders Only External Location [address] [place] [address] Provider, External Social History Tobacco Use Types [...] Visit Physical [facility] at [facility] [address] [place] [address] Leslie Suarez DO [address] [place] [address] 04/08/2025 12:00 PM EST Office Visit [facility] Nephrology, Bone & Mineral Metabolism [address], [address] [place] [address] David Workman MD [address] [place] [address] 09/30/2025 10:10 AM EDT Appointment [facility] G Radiology [address] [place] [address] 09/30/2025 11:30 AM EDT Office Visit Pav CC Head, Neck & Respiratory [address] [facility], 2nd [place] [address] Aysha Crews MD [address] [place] [address] documented as of this encounter [...] documented as of this encounter Care Teams Account Services Manager Relationship Specialty Start Date End Date Antwan Esparza MD [address] [place] [address] PCP - General 12/14/20 02/18/24 Inna Serrano APRN [facility] [place] [address] PCP - General 02/19/24 Ángela Millard, BELINDA [address] [place] [address] Nurse Practitioner Neurosurgery 09/17/21 documented as of this encounter
--- OUTSIDE RECORDS SUMMARY | 2025-02-14 13:58 | XMS_ITS | Encounter Summary ---
Author Organization [facility] Address [address] [place] [address] Care Team Providers Care Commissioning Specialist Name Role Phone Antwan Esparza MD Primary Care Provider [phone] Ángela Millard REAL ESTATE ASSET MANAGER Unavailable [phone] Inna Serrano APRN Primary Care Provider [phone] Encounter Details Date Type Department Care Team (Late Contact Info) Description 06/23/2023 Orders Only External Location [address] [place] [address] Andrew Borja, DO [address] [place] [address] [place] [id number] Social History Tobacco Use Types Packs/Day Years [...] & [facility] at [facility] [address] [place] [address] Leslie Suarez DO [address] [place] [address] 04/08/2025 12:00 PM EST Office Visit Professional [facility] Nephrology, Bone & Mineral Metabolism [address] [facility], [address] [place] [address] David Workman MD [address] [place] [address] 09/30/2025 10:10 AM EDT Appointment [facility] G Radiology [address] [place] [address] 09/30/2025 11:30 AM EDT Office Visit Pav CC Head, Neck & Respiratory [address] [facility], 2nd [place] [address] Aysha Crews MD [address] [facility] [address] [place] [address] documented as of this encounter [...] documented as of this encounter Care Teams Commissioning Specialist Relationship Specialty Start Date End Date Antwan Esparza MD [address] [place] [address] PCP - General 12/14/20 02/18/24 Inna Serrano APRN [address] [place] [address] PCP - General 02/19/24 Ángela Millard APRN [address] [place] [address] Nurse Practitioner Neurosurgery 09/17/21 documented as of this encounter
--- OUTSIDE RECORDS SUMMARY | 2025-02-14 13:58 | XMS_ITS | Encounter Summary ---
Author Organization Healthcare Address [address] [place] [address] Care Team Providers Care Real Estate Administrator Name Role Phone Delmer Fritz MD Primary Care Provider [phone] Antwan Esparza MD Primary Care Provider + [phone] Ángela Millard [employer] Unavailable [phone] Inna Serrano APRN Primary Care Provider + [phone] Encounter Details Date Type Department Care Team (Late st Contact Info) Description 05/13/2020 Orders Only External Location [address] [place] [address] Provider, External Social History Tobacco Use Types [...] [facility] [address] [place] [address] Leslie Suarez DO [address] [place] [address] 04/08/2025 12:00 PM EST Office Visit Professional [facility] Nephrology, Bone & Mineral Metabolism [address] [facility], [address] [place] [address] David Workman MD [address] [place] [address] 09/30/2025 10:10 AM EDT Appointment [facility] G Radiology [address] [place] [address] 09/30/2025 11:30 AM EDT Office Visit Pav CC Head, Neck & Respiratory [address] [facility], 2nd [place] [address] Aysha Crews MD [address] [facility] [address] [place] [address] documented as of this encounter [...] on filedocumented in this encounter Care Teams Real Estate Administrator Relationship Specialty Start Date End Date Delmer Fritz MD [address] [place] [address] [address] [place] [address] PCP - General 10/02/20 12/13/20 Antwan Esparza MD [address] [place] [address] PCP - General 12/14/20 02/18/24 Inna Serrano APRN [address] [place] [address] PCP - General 02/19/24 Ángela Millard APRN [address] [place] [address] Nurse Practitioner Neurosurgery 09/17/21 documented as of this encounter
--- OUTSIDE RECORDS SUMMARY | 2025-02-14 13:58 | XMS_ITS | Encounter Summary ---
Author Organization Healthcare Address [address] [place] [address] Care Team Providers Care Wood And Hardware Outfitter Name Role Phone Ángela Millard CONCRETE MIXING PLANT SUPERINTENDENT Unavailable [phone] Inna Serrano APRN Primary Care Provider [phone] Encounter Details Date Type Department Care Team [...] Visit Physical [facility] at [facility] [address] [place] [address] Leslie Suarez DO [address] [place] [address] 04/08/2025 12:00 PM EST Office Visit Professional [facility] Nephrology, Bone & Mineral Metabolism [address] [facility], [address] [place] [address] David Workman MD [address] [place] [address] 09/30/2025 10:10 AM EDT Appointment [facility] G Radiology [address] [place] [address] 09/30/2025 11:30 AM EDT Office Visit Pav CC Head, Neck & Respiratory 800 [facility], 2nd [place] [address] Aysha Crews MD [address] [facility] [address] [place] [address] documented as of this encounter Visit Diagnoses Not on filedocumented in this encounter Additional Health Concerns Assessment Noted Time A fall risk assessment has been complete d for the patient 11/11/2024 1:29 PM EDT A Body Mass Index follow-up plan has been documented for the patient 11/11/2024 5:31 PM EDT documented as of this encounter Care Teams Wood And Hardware Outfitter Relationship Specialty Start Date End Date Inna Serrano APRN [address] [place] [address] PCP - General 02/19/24 Ángela Millard APRN [address] [place] [address] Nurse Practitioner Neurosurgery 09/17/21 documented as of this encounter
--- OUTSIDE RECORDS SUMMARY | 2025-02-14 13:58 | XMS_ITS | Encounter Summary ---
Author Organization [facility] Address [address] [place] [address] Care Team Providers Care Columnist/Commentator Name Role Phone Antwan Esparza MD Primary Care Provider [phone] Ángela Millard JUDICIAL CLERK Unavailable [phone] Inna Serrano JUDICIAL CLERK Primary Care Provider [phone] Encounter Details Date Type Department Care Team (Late Contact Info) Description 09/15/2023 Orders Only External Location [address] [place] [address] Idalia Torres, JUDICIAL CLERK [address] [place], [place] [id number] Social History Tobacco Use Types Packs/Day Years [...] Visit [facility] & Rehabilitation [facility] at [facility] [address] [place] [address] Adonis JimenezlesLeslie, DO [address] [place] [address] 04/08/2025 12:00 PM EST Office Visit [facility] Nephrology, Bone & Mineral Metabolism [address] [facility], [address] [place] [address] David Workman MD [address] [place] [address] 09/30/2025 10:10 AM EDT Appointment [facility] Radiology [address] [place] [address] 09/30/2025 11:30 AM EDT Office Visit [facility] [address] , 2nd [place] [address] Aysha Crews MD [address] [facility] [address] [place] [address] documented as of this encounter [...] documented as of this encounter Care Teams Columnist/Commentator Relationship Specialty Start Date End Date Antwan Esparza MD [address] [place] [address] PCP - General 12/14/20 02/18/24 Inna Serrano APRN [address] [place] [address] PCP - General 02/19/24 Ángela Millard APRN [address] [place] [address] Nurse Practitioner Neurosurgery 09/17/21 documented as of this encounter
--- OUTSIDE RECORDS SUMMARY | 2025-02-14 13:58 | XMS_ITS | Encounter Summary ---
Author Organization Healthcare Address [address] [place] [address] Care Team Providers Care Java Tech Name Role Phone Ángela Millard SEGMENT ASSEMBLER Unavailable [phone] Inna Serrano APRN Primary Care Provider [phone] Reason for Visit * Reason Onset Date Comments HCN - Patient Message 01/15/2025 Encounter Details Date Type Department Care Team (Late st Contact Info) Description 01/15/2025 Telephone Physical Medicine & Rehabilitation Clinic at [facility] [address] [facility] [place] [address] Leslie Suarez DO [address] [facility] [address] [place] [address] HCN - Patient Message Social [...] SANDIE Reason for Call: 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 It is all from drinking water where the PFA was in the water. Best contact number: [phone] (mobile) Optimal time of day to reach caller: ANYTIME Additional comments/information from caller: None Note: Please do not reply to this message. Follow-up communication and further actions as a result of this message need to be communicated with the patient directly, if the patient is not active onMyChart. If the patient is active on MyChart, they will receive notification of the communication/outcome via PeakStream. documented in this encounter Plan of Treatment Upcoming Encounters Date Type Department Care Team (Late st Contact Info) Description 02/19/2025 3:20 PM EDT Office Visit [facility] Rehabilitation [facility] at [facility] [address] [address] Leslie Suarez DO [address] [place] [address] 04/08/2025 12:00 PM EST Office Visit [facility] Nephrology, Bone & Mineral Metabolism [address], [address] [place] [address] David Workman MD [address] [place] [address] 09/30/2025 10:10 AM EDT Appointment [facility] Radiology [address] [place] [address] 09/30/2025 11:30 AM EDT Office Visit [facility] Res[facility] [address] , 2nd [place] [address] Aysha Crews MD [address] [place] [address] documented as of this encounter Visit Diagnoses Not on filedocumented in this encounter Additional Health Concerns Assessment Noted Time A fall risk assessment has been complete d for the patient 01/08/2025 1:58 PM EDT A Body Mass Index follow-up plan has been documented for the patient 01/08/2025 3:33 PM EDT documented as of this encounter Care Teams Java Tech Relationship Specialty Start Date End Date Inna Serrano APRN [address] [place] [address] PCP - General 02/19/24 Ángela Millard APRN [address] [place] [address] Nurse Practitioner Neurosurgery 09/17/21 documented as of this encounter
--- OUTSIDE RECORDS SUMMARY | 2025-02-14 13:58 | XMS_ITS | Encounter Summary ---
Author Organization Healthcare Address [address] [place] [address] Care Team Providers Care School Business Administrator Name Role Phone Delmer Fritz MD Primary Care Provider [phone] Antwan Esparza MD Primary Care Provider + [phone] Ángela Millard THREAD WINDER Unavailable [phone] Inna Serrano APRN Primary Care Provider + [phone] Encounter Details Date Type Department Care Team (Late st Contact Info) Description 02/28/2020 Orders Only External Location [address] [place] [address] Provider, External Social History Tobacco Use Types [...] [facility] at [facility] [address] [place] [address] Leslie Suarez DO [address] [place] [address] 04/08/2025 12:00 PM EST Office Visit Professional [facility] Nephrology, Bone & Mineral Metabolism [address] [facility], [address] [place] [address] David Workman MD [address] [place] [address] 09/30/2025 10:10 AM EDT Appointment [facility] Radiology [address] [place] [address] 09/30/2025 11:30 AM EDT Office Visit [facility] Respiratory [address] [facility], 2nd [place] [address] Aysha Crews MD [address] [place] [address] documented as of this encounter [...] on filedocumented in this encounter Care Teams School Business Administrator Relationship Specialty Start Date End Date Delmer Fritz MD [address] [facility] [address] [place] [address] PCP - General 10/02/20 12/13/20 Antwan Esparza MD [address] [place] [address] PCP - General 12/14/20 02/18/24 Inna Serrano APRN [address] [place] [address] PCP - General 02/19/24 Ángela Millard APRN [address] [place] [address] Nurse Practitioner Neurosurgery 09/17/21 documented as of this encounter
--- OUTSIDE RECORDS SUMMARY | 2025-02-14 13:58 | XMS_ITS | Encounter Summary ---
Author Organization Healthcare Address [address] [place] [address] Care Team Providers Care Shop Welder Name Role Phone Ángela Millard WAXING MACHINE OPERATOR HELPER Unavailable [phone] Inna Serrano APRN Primary Care Provider [phone] Reason for Visit * Reason Onset Date Comments HCN - Patient Message 12/13/2024 Encounter Details Date Type Department Care Team ([facility] st Contact Info) Description 12/13/2024 Telephone [facility] Nephrology, Bone & Mineral Metabolism [address] [facility], [address] [place] [address] None, None [address] [place] [address] HCN - Patient Message Social [...] AM EDT Clinical Concern/Question 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 Diagnosis not showing on DT. Best contact number: [phone] (mobile) Optimal time of day to reach [...] Clinic at [facility] [address] [place] [address] Leslie Suarez DO [address] [place] [address] 04/08/2025 12:00 PM EST Office Visit [facility] Nephrology, Bone & Mineral Metabolism [address] [facility], [address] [place] [address] David Workman MD [address] [place] [address] 09/30/2025 10:10 AM EDT Appointment [facility] Radiology [address] [place] [address] 09/30/2025 11:30 AM EDT Office Visit [facility] Head[facility] Neck & Respiratory [address] [facility], 2nd [place] [address] Aysha Crews MD [address] [facility] [address] [place] [address] documented as of this encounter Visit Diagnoses Not on filedocumented in this encounter Additional Health Concerns Assessment Noted Time A fall risk assessment has been complete d for the patient 11/11/2024 1:29 PM EDT A Body Mass Index follow-up plan has been documented for the patient 11/11/2024 5:31 PM EDT documented as of this encounter Care Teams Shop Welder Relationship Specialty Start Date End Date Inna Serrano APRN [address] [place] [address] PCP - General 02/19/24 Ángela Millard APRN [address] [place] [address] Nurse Practitioner Neurosurgery 09/17/21 documented as of this encounter
--- OUTSIDE RECORDS SUMMARY | 2025-02-14 13:58 | XMS_ITS | Encounter Summary ---
Author Organization Healthcare Address [address] [place] [address] Care Team Providers Care Online Marketer Name Role Phone Ángela Millard TIP OUT WORKER Unavailable [phone] Inna Serrano APRN Primary Care Provider [phone] Reason for Visit * Reason Onset Date Comments HCN - Patient Message 01/21/2025 Encounter Details Date Type Department Care Team (Late st Contact Info) Description 01/21/2025 Telephone Physical Medicine & Rehabilitation Clinic at [facility] [address] [facility] [place] [address] Leslie Suarez DO [address] [facility] [address] [place] [address] HCN - Patient Message Social [...] Telephone Encounter - Leslie Suarez DO - 01/21/2025 7:19 PM EDT Noted thanks. * Telephone Encounter - Omkar Thurman - 01/21/2025 8:31 AM EDT Clinical Concern/Question Reason for Call: Dr. Adonis Morrison pt called to inform provider and clinical staff that he is scheduled for renal ultrasound bx at today. No call back requested. Best contact number: [phone] (mobile) Optimal time of day to reach caller: ANYTIME Additional comments/information from caller: None Note: Please do not reply to this message. Follow-up communication and further actions as a result of this message need to be communicated with the patient directly, if the patient is not active onMyChart. If the patient is active on MyChart, they will receive notification of the communication/outcome via Videostrip. documented in this encounter Plan of Treatment Upcoming Encounters Date Type Department Care Team (Late st Contact Info) Description 02/19/2025 3:20 PM EDT Office Visit [facility] [address] [place] [address] Leslie Suarez DO [address] [place] [address] 04/08/2025 12:00 PM EST Office Visit Professional [facility] Nephrology, Bone & Mineral Metabolism [address], [address] [place] [address] David Workman MD [address] [place] [address] 09/30/2025 10:10 AM EDT Appointment [facility] G Radiology [address] [place] [address] 09/30/2025 11:30 AM EDT Office Visit [facility] Neck [facility] Respiratory [address], 2nd [place] [address] Aysha Crews MD [address] [place] [address] documented as of this encounter Visit Diagnoses Not on filedocumented in this encounter Additional Health Concerns Assessment Noted Time A fall risk assessment has been complete d for the patient 01/08/2025 1:58 PM EDT A Body Mass Index follow-up plan has been documented for the patient 01/08/2025 3:33 PM EDT documented as of this encounter Care Teams Online Marketer Relationship Specialty Start Date End Date Inna Serrano APRN [address] [place] [address] PCP - General 02/19/24 Ángela Millard APRN [address] [place] [address] Nurse Practitioner Neurosurgery 09/17/21 documented as of this encounter
--- OUTSIDE RECORDS SUMMARY | 2025-02-14 13:58 | XMS_ITS | Encounter Summary ---
Author Organization Healthcare Address [address] [place] [address] Care Team Providers Care Account Contact Associate Name Role Phone Delmer Fritz MD Primary Care Provider [phone] Antwan Esparza MD Primary Care Provider [phone] Ángela Millard HAND VIOLIN MAKER Unavailable [phone] Inna Serrano APRN Primary Care Provider + [phone] Encounter Details Date Type Department Care Team (Late st Contact Info) Description 07/30/2018 Orders Only External Location [address] [place] [address] Provider, External Social History Tobacco Use Types [...] Visit Physical Medicine & Rehabilitation Clinic at [facility] [address] [place] [address] Leslie Suarez DO [address] [place] [address] 04/08/2025 12:00 PM EST Office Visit Professional [facility] Nephrology, Bone & Mineral Metabolism [address] [facility], [address] [place] [address] David Workman MD [address] [place] [address] 09/30/2025 10:10 AM EDT Appointment [facility] Radiology [address] [place] [address] 09/30/2025 11:30 AM EDT Office Visit [facility] Head[facility] Neck & Respiratory [address] [facility], 2nd [place] [address] Aysha Crews MD [address] [facility] [address] [place] [address] documented as of this encounter [...] on filedocumented in this encounter Care Teams Account Contact Associate Relationship Specialty Start Date End Date Delmer Fritz MD [address] [place] [address] [address] [place] [address] PCP - General 10/02/20 12/13/20 Antwan Esparza MD [address] [place] [address] PCP - General 12/14/20 02/18/24 Inna Serrano APRN [address] [place] [address] PCP - General 02/19/24 Ángela Millard APRN [address] [facility] [address] [place] [address] Nurse Practitioner Neurosurgery 09/17/21 documented as of this encounter
--- OUTSIDE RECORDS SUMMARY | 2025-02-14 13:58 | XMS_ITS | Encounter Summary ---
Author Organization Healthcare Address [address] [place] [address] Care Team Providers Care Senior It Assistant Name Role Phone Delmer Fritz MD Primary Care Provider [phone] Antwan Esparza MD Primary Care Provider [phone] Ángela Millard CHARACTER ACTRESS Unavailable [phone] Inna Serrano APRN Primary Care Provider + [phone] Encounter Details Date Type Department Care Team (Late st Contact Info) Description 08/14/2019 Orders Only External Location [address] [place] [address] Provider, External Social History Tobacco Use Types [...] [facility] at [facility] [address] [place] [address] Leslie Suarez DO [address] [place] [address] 04/08/2025 12:00 PM EST Office Visit Professional [facility] Nephrology, Bone & Mineral Metabolism [address] [facility], [address] [place] [address] David Workman MD [address] [place] [address] 09/30/2025 10:10 AM EDT Appointment [facility] G Radiology [address] [place] [address] 09/30/2025 11:30 AM EDT Office Visit [facility] Head[facility] Neck & Respiratory [address] [facility], 2nd [place] [address] Aysha Crews MD [address] [place] [address] documented as of this encounter [...] filedocumented in this encounter Care Teams Senior It Assistant Relationship Specialty Start Date End Date Delmer Fritz MD [address] [facility] [address] [place] [address] PCP - General 10/02/20 12/13/20 Antwan Esparza MD [address] [place] [address] PCP - General 12/14/20 02/18/24 Inna Serrano APRN [address] [place] [address] PCP - General 02/19/24 Ángela Millard APRN [address] [place] [address] Nurse Practitioner Neurosurgery 09/17/21 documented as of this encounter
--- OUTSIDE RECORDS SUMMARY | 2025-02-14 13:58 | XMS_ITS | Encounter Summary ---
Author Organization Healthcare Address [address] [place] [address] Care Team Providers Care Environmental Tech Name Role Phone Ángela Millard PARIMUTUEL TICKET SELLER Unavailable [phone] Inna Serrano PARIMUTUEL TICKET SELLER Primary Care Provider [phone] Encounter Details Date Type Department Care Team (Late st Contact Info) Description 08/08/2024 Orders Only External Location [address] [place] [address] Provider, External Social History Tobacco Use Types [...] Visit Physical Medicine & Rehabilitation Clinic at [facility] [address] [place] [address] Leslie Suarez DO [address] [place] [address] 04/08/2025 12:00 PM EST Office Visit [facility] Nephrology, Bone & Mineral Metabolism [address] [facility], [address] [place] [address] David Workman MD [address] [place] [address] 09/30/2025 10:10 AM EDT Appointment [facility] Radiology [address] [place] [place] [address] 09/30/2025 11:30 AM EDT Office Visit [facility] Head[facility] Neck & Respiratory [address] [facility], 2nd [place] [address] Aysha Crews MD [address] [place] [address] documented as of this [...] documented as of this encounter Care Teams Environmental Tech Relationship Specialty Start Date End Date Inna Serrano APRN [address] [place] [address] PCP - General 02/19/24 Ángela Millard APRN [address] [place] [address] Nurse Practitioner Neurosurgery 09/17/21 documented as of this encounter
--- OUTSIDE RECORDS SUMMARY | 2025-02-14 13:58 | XMS_ITS | Encounter Summary ---
Author Organization [facility] Address [address] [id number] Care Team Providers Care Rehab Physician Name Role Phone Ángela Millard Ev EXPERIENTIAL THERAPIST Unavailable Inna Serrano APRN Primary Care Provider [phone] Reason for Visit * Reason Onset Date Comments HCN - Patient Message 01/14/2025 Encounter Details Date Type Department Care Team ([facility] st Contact Info) Description 01/14/2025 Telephone [facility] Nephrology, Bone & Mineral Metabolism [address] [facility], [address] [place] [address] David Workman MD [address] [place] [address] HCN - Patient Message Social History [...] not required Renal ultrasound order faxed to [facility] Scheduling [phone] * Telephone Encounter - Celina Arce - 01/14/2025 12:19 PM EDT Confirmed with facility that order was received, stated they need prior auth. Auth team notified * Telephone Encounter - Claudia Griffin - 01/14/2025 12:11 PM EDT Patient Phone Message Reason for Call: Pt says [facility] does not have his renal US order. He is asking for the status of the referral. Best contact number and optimal time of day to reach caller: [phone] Note: Please do not reply to this message. Follow-up communication and further actions as a result of this message need to be communicated with the patient directly, if the patient is not active onMyChart. If the patient is active on MyChart, they will receive notification of the communication/outcome via Onset Technologyt. documented in this encounter Plan of Treatment Upcoming Encounters Date Type Department Care Team (Late st Contact Info) Description 02/19/2025 3:20 PM EDT Office Visit [facility] at [facility] [address] [place] [address] Leslie Suarez DO [address] [place] [address] 04/08/2025 12:00 PM EST Office Visit [facility] Nephrology, Bone & Mineral Metabolism [address] [facility], [address] [place] [address] David Workman MD [address] [place] [address] 09/30/2025 10:10 AM EDT Appointment [facility] G Radiology [address] [place] [address] 09/30/2025 11:30 AM EDT Office Visit [facility] Head[facility] Neck & Respiratory [address] [facility], 2nd [place] [address] Aysha Crews MD [address] [place] [address] documented as of this encounter Visit Diagnoses Not on filedocumented in this encounter Additional Health Concerns Assessment Noted Time A fall risk assessment has been complete d for the patient 01/08/2025 1:58 PM EDT A Body Mass Index follow-up plan has been documented for the patient 01/08/2025 3:33 PM EDT documented as of this encounter Care Teams Rehab Physician Relationship Specialty Start Date End Date Inna Serrano, EXPERIENTIAL THERAPIST [address] [place] [address] PCP - General 02/19/24 Ángela Millard, EXPERIENTIAL THERAPIST [address] [place] [address] Nurse Practitioner Neurosurgery 09/17/21 documented as of this encounter
--- OUTSIDE RECORDS SUMMARY | 2025-02-14 13:58 | XMS_ITS | Encounter Summary ---
Author Organization Healthcare Address [address] [place] [address] Care Team Providers Care Head Concierge Name Role Phone Ángela Millard POWDERER Unavailable [phone] Inna Serrano POWDERER Primary Care Provider [phone] Encounter Details Date Type Department Care Team (Late st Contact Info) Description 09/02/2024 Orders Only External Location [address] [place] [address] Provider, External Social History Tobacco Use Types [...] Visit Physical Medicine & Rehabilitation Clinic at [facility] [address] [place] [address] Leslie Suarez DO [address] [place] [address] 04/08/2025 12:00 PM EST Office Visit [facility] Nephrology, Bone & Mineral Metabolism [address] [facility], [address] [place] [address] David Workman MD [address] [place] [address] 09/30/2025 10:10 AM EDT Appointment [facility] Radiology [address] [place] [address] 09/30/2025 11:30 AM EDT Office Visit [facility] Respiratory [address] [facility], 2nd [place] [address] Aysha Crews MD [address] [place] [address] documented as of this encounter [...] documented as of this encounter Care Teams Head Concierge Relationship Specialty Start Date End Date Inna Serrano APRN [address] [place] [address] PCP - General 02/19/24 Ángela Millard APRN [address] [place] [address] Nurse Practitioner Neurosurgery 09/17/21 documented as of this encounter
--- OUTSIDE RECORDS SUMMARY | 2025-02-14 13:58 | XMS_ITS | Encounter Summary ---
Author Organization [facility] Address [address] [place] [address] Care Team Providers Care Cinema Or Theatre Manager Name Role Phone Ángela Millard CEO ZIFF DAVIS Unavailable [phone] Inna Serrano APRN Primary Care Provider [phone] Encounter Details Date Type Department Care Team [...] Visit Physical Medicine & Rehabilitation Clinic at [facility] [address] [place] [address] Leslie Suarez DO [address] [place] [address] 04/08/2025 12:00 PM EST Office Visit [facility] Nephrology, Bone & Mineral Metabolism [address] [facility], [address] [place] [address] David Workman MD [address] [place] [address] 09/30/2025 10:10 AM EDT Appointment [facility] G Radiology [address] [place] [address] 09/30/2025 11:30 AM EDT Office Visit [facility] Head, Neck & Respiratory [address] [facility], 2nd [place] [address] Aysha Crews MD [address] [facility] [address] [place] [address] documented as of this encounter Visit Diagnoses Not on filedocumented in this encounter Additional Health Concerns Assessment Noted Time A fall risk assessment has been complete d for the patient 01/08/2025 1:58 PM EDT A Body Mass Index follow-up plan has been documented for the patient 01/08/2025 3:33 PM EDT documented as of this encounter Care Teams Cinema Or Theatre Manager Relationship Specialty Start Date End Date Inna Serrano APRN [address] [place] [address] PCP - General 02/19/24 Ángela Millard APRN [address] [place] [address] Nurse Practitioner Neurosurgery 09/17/21 documented as of this encounter
--- OUTSIDE RECORDS SUMMARY | 2025-02-14 13:58 | XMS_ITS | Encounter Summary ---
Author Organization Healthcare Address [address] [place] [address] Care Team Providers Care Skiver Sock Linings Name Role Phone Ángela Millard TUMBLER TENDER Unavailable [phone] Inna Serrano APRN Primary Care Provider [phone] Reason for Visit * Reason Onset Date Comments Med Refill 12/13/2024 Encounter Details Date Type Department Care Team (Late st Contact Info) Description 12/13/2024 Refill [facility] at [facility] [address] [facility] [place] [address] Leslie Suarez DO [address] [facility] [address] [place] [address] Social History Tobacco Use Types [...] PM EDT duplicate * Telephone Encounter - HarshalDanyasilvina Tirado - 12/13/2024 2:19 PM EDT Status Update Call #1 1st call regarding the status of the initial request. Best contact number: [phone] (mobile) Optimal time of day to reach caller: ANYTIME Additional comments/information from caller: None Note: Please do not reply to this message. Follow-up communication and further actions as a result of this message need to be communicated with the patient directly, if the patient is not active onMyChart. If the patient is active on MyChart, they will receive notification of the communication/outcome via [employer] documented in this encounter Plan of Treatment Upcoming Encounters Date Type Department Care Team (Late st Contact Info) Description 02/19/2025 3:20 PM EDT Office Visit [facility] [address] [address] Leslie Suarez DO [address] [place] [address] 04/08/2025 12:00 PM EST Office Visit [facility] Nephrology, Bone & Mineral Metabolism [address] [facility], [address] [place] [address] David Workman MD [address] [place] [address] 09/30/2025 10:10 AM EDT Appointment P[facility] G Radiology [address] [place] [address] 09/30/2025 11:30 AM EDT Office Visit [facility] Head, Neck & Respiratory [address] [facility], 2nd [place] [address] Aysha Crews MD [address] [place] [address] documented as of this encounter Visit Diagnoses Not on filedocumented in this encounter Additional Health Concerns Assessment Noted Time A fall risk assessment has been complete d for the patient 11/11/2024 1:29 PM EDT A Body Mass Index follow-up plan has been documented for the patient 11/11/2024 5:31 PM EDT documented as of this encounter Care Teams Skiver Sock Linings Relationship Specialty Start Date End Date Inna Serrano APRN [address] [place], [place] [id number] PCP - General 02/19/24 Ángela Millard APRN [address] [place] [address] Nurse Practitioner Neurosurgery 09/17/21 documented as of this encounter
--- OUTSIDE RECORDS SUMMARY | 2025-02-14 13:58 | XMS_ITS | Encounter Summary ---
Author Organization Healthcare Address [address] [place] [address] Care Team Providers Care Medical Affairs Specialist Name Role Phone Antwan Esparza MD Primary Care Provider [phone] Ángela Millard SENSITOMETRIST Unavailable [phone] Inna Serrano SENSITOMETRIST Primary Care Provider + [phone] Encounter Details Date Type Department Care Team (Late st Contact Info) Description 05/24/2022 Orders Only External Location [address] [place] [address] Provider, External Social History Tobacco Use Types [...] Visit Physical Medicine & Rehabilitation Clinic at [facility] [address] [place] [address] Leslie Suarez DO [address] [place] [address] 04/08/2025 12:00 PM EST Office Visit [facility] Nephrology, Bone & Mineral Metabolism [address] [facility], [address] [place] [address] David Workman MD [address] [place] [address] 09/30/2025 10:10 AM EDT Appointment P[facility] G Radiology [address] [place] [address] 09/30/2025 11:30 AM EDT Office Visit [facility] Head, Neck & Respiratory [address] [facility], 2nd [place] [address] Aysha Crews MD [address] [place] [address] documented as of this encounter [...] as of this encounter Care Teams Medical Affairs Specialist Relationship Specialty Start Date End Date Antwan Esparza MD 9 [place] [address] PCP - General 12/14/20 02/18/24 Inna Serrano APRN [facility] [place] [address] PCP - General 02/19/24 Ángela Millard APRN [address] [place] [address] Nurse Practitioner Neurosurgery 09/17/21 documented as of this encounter
--- OUTSIDE RECORDS SUMMARY | 2025-02-14 13:58 | XMS_ITS | Encounter Summary ---
Author Organization Healthcare Address [address] [place] [address] Care Team Providers Care Contact Center Associate Name Role Phone Delmer Fritz MD Primary Care Provider [phone] Antwan Esparza MD Primary Care Provider + [phone] Ángela Millard EMERGENCY MANAGEMENT COORDINATOR Unavailable [phone] Inna Serrano APRN Primary Care Provider + [phone] Encounter Details Date Type Department Care Team (Late st Contact Info) Description 05/13/2020 Orders Only External Location [address] [place] [address] Provider, External Social History Tobacco Use Types [...] [facility] at [facility] [address] [address] Leslie Suarez DO [address] [place] [address] 04/08/2025 12:00 PM EST Office Visit [facility] Nephrology, Bone & Mineral Metabolism [address] [facility], [address] [place] [address] David Workman MD [address] [place] [address] 09/30/2025 10:10 AM EDT Appointment P[facility] G Radiology [address] [place] [address] 09/30/2025 11:30 AM EDT Office Visit [facility] Head, Neck & Respiratory 800 [facility], 2nd [place] [address] Aysha Crews MD [address] [facility] [address] [place] [address] documented as of this encounter [...] on filedocumented in this encounter Care Teams Contact Center Associate Relationship Specialty Start Date End Date Delmer Fritz MD [address] [place] [address] [address] [place] [address] PCP - General 10/02/20 12/13/20 Antwan Esparza MD [address] [place] [address] PCP - General 12/14/20 02/18/24 Inna Serrano APRN [address] [place] [address] PCP - General 02/19/24 Ángela Millard APRN [address] [place] [address] Nurse Practitioner Neurosurgery 09/17/21 documented as of this encounter
--- OUTSIDE RECORDS SUMMARY | 2025-02-14 13:58 | XMS_ITS | Encounter Summary ---
Author Organization Healthcare Address [address] [place] [address] Care Team Providers Care Board Worker Name Role Phone Antwan Esparza MD Primary Care Provider + [phone] Ángela Millard BOX TOE STITCHER Unavailable [phone] Inna Serrano BOX TOE STITCHER Primary Care Provider + [phone] Reason for Visit * Reason Onset Date Comments HCN - Rx Refill Request 04/11/2022 Encounter Details Date Type Department Care Team (Late st Contact Info) Description 04/11/2022 Refill [facility] at [facility] [address] [place] [address] Leslie Suarez DO [address] [facility] [address] [place] [address] Chronic low back pain, unspecified [...] Dosage: Hydrocodone-acetaminophen 5-325MG Preferred Pharmacy & Location: [facility] [place], [place] Days of medication remaining (if under 3 days please aishwarya as urgent): 7 days Best contact number and optimal time of day to reach caller: [phone] Additional comments/information from caller: Note: Please do not reply to this message. Follow-up communication and further actions as a result of this message need to be communicated with the patient directly, if the patient is not active onMyChart. If the patient is active on MyChart, they will receive notification of the communication/outcome via [employer]. documented in this encounter Plan of Treatment Upcoming Encounters Date Type Department Care Team (Late st Contact Info) Description 02/19/2025 3:20 PM EDT Office Visit [facility] at [facility] [address] [place] [address] Leslie Suarez DO [address] [facility] [address] [place] [address] 04/08/2025 12:00 PM EST Office Visit [facility] Nephrology, Bone & Mineral Metabolism [address] [facility], [address] [place] [address] David Workman MD 800 [place] [address] 09/30/2025 10:10 AM EDT Appointment P[facility] G Radiology [address] [place] [address] 09/30/2025 11:30 AM EDT Office Visit [facility] CC Head, Neck & Respiratory [address] [facility], 2nd [place] [address] Aysha Crews MD [address] [place] [address] documented as of this encounter Visit Diagnoses Diagnosis Chronic low back pain, unspecified back pain laterality, unspecified whether sciatica present- Primary documented in this encounter Additional Health Concerns Assessment Noted Time A fall risk assessment has been complete d for the patient 01/31/2022 1:51 PM EDT documented as of this encounter Care Teams Board Worker Relationship Specialty Start Date End Date Antwan Esparza MD [address] [place] [address] PCP - General 12/14/20 02/18/24 Inna Serrano APRN [facility] [place] [address] PCP - General 02/19/24 Ángela Millard APRN [address] [place] [address] Nurse Practitioner Neurosurgery 09/17/21 documented as of this encounter
--- OUTSIDE RECORDS SUMMARY | 2025-02-14 13:58 | XMS_ITS | Encounter Summary ---
Author Organization Healthcare Address [address] [place] [address] Care Team Providers Care Global Vp Creative + Content Marketing Name Role Phone Delmer Fritz MD Primary Care Provider [phone] Antwan Esparza MD Primary Care Provider + [phone] Ángela Millard FOLDING MACHINE SETTER Unavailable [phone] Inna Serrano APRN Primary Care Provider + [phone] Encounter Details Date Type Department Care Team (Late st Contact Info) Description 03/19/2015 Orders Only External Location 800 [place] [address] Provider, External Social History Tobacco Use Types [...] [facility] at [facility] [address] [place] [address] Leslie Suarez DO [address] [place] [address] 04/08/2025 12:00 PM EST Office Visit Professional [facility] Nephrology, Bone & Mineral Metabolism [address] [facility], [address] [place] [address] David Workman MD 800 [place] [address] 09/30/2025 10:10 AM EDT Appointment [facility] G Radiology [address] [place] [address] 09/30/2025 11:30 AM EDT Office Visit Pav CC Head, Neck & Respiratory [address] [facility], 2nd [place] [address] Aysha Crews MD [address] [facility] [address] [place] [address] documented as of this encounter [...] on filedocumented in this encounter Care Teams Global Vp Creative + Content Marketing Relationship Specialty Start Date End Date Delmer Fritz MD [address] [facility] [address] [place] [address] PCP - General 10/02/20 12/13/20 Antwan Esparza MD 9 [place] [address] PCP - General 12/14/20 02/18/24 Inna Serrano APRN [address] [place] [address] PCP - General 02/19/24 Ángela Millard APRN [address] [place] [address] Nurse Practitioner Neurosurgery 09/17/21 documented as of this encounter
--- OUTSIDE RECORDS SUMMARY | 2025-02-14 13:58 | XMS_ITS | Encounter Summary ---
Author Organization Healthcare Address [address] [place] [address] Care Team Providers Care Brush Hand Name Role Phone Antwan Esparza MD Primary Care Provider + [phone] Ángela Millard TEMPER MILL ROLLER Unavailable [phone] Inna Serrano APRN Primary Care Provider + [phone] Encounter Details Date Type Department Care Team (Late Contact Info) Description 02/01/2021 Orders Only External Location 800 [place] [address] Provider, External Social History Tobacco Use Types [...] Rehabilitation Clinic at [facility] [address] [place] [address] Leslie Suarez DO [address] [place] [address] 04/08/2025 12:00 PM EST Office Visit [facility] Nephrology, Bone & Mineral Metabolism [address] [facility], [address] [place] [address] David Workman MD [address] [place] [address] 09/30/2025 10:10 AM EDT Appointment P[facility] G Radiology [address] [place] [address] 09/30/2025 11:30 AM EDT Office Visit Pav CC Head, Neck & Respiratory 800 [facility], 2nd [place] [address] Aysha Crews MD [address] [place] [address] documented as of [...] documented as of this encounter Care Teams Brush Hand Relationship Specialty Start Date End Date Antwan Esparza MD [address] [place], [place] [id number] PCP - General 12/14/20 02/18/24 Inna Serrano APRN [address] [place] [address] PCP - General 02/19/24 Ángela Millard APRN [address] [place] [address] Nurse Practitioner Neurosurgery 09/17/21 documented as of this encounter
--- OUTSIDE RECORDS SUMMARY | 2025-02-14 13:58 | XMS_ITS | Encounter Summary ---
Author Organization [facility] Address [address] [place] [address] Care Team Providers Care Handle Lathe Operator Name Role Phone Antwan Esparza MD Primary Care Provider [phone] Ángela Millard EXPERIMENTAL WORKER Unavailable [phone] Inna Serrano EXPERIMENTAL WORKER Primary Care Provider + [phone] Encounter Details Date Type Department Care Team (Late Contact Info) Description 07/06/2022 Orders Only External Location 800 [place] [address] Damien Childs MD [address] [facility] [address] [place] [address] Social History Tobacco Use Types [...] & Rehabilitation Clinic at [facility] [address] [place] [address] Leslie Suarez DO [address] [facility] [address] [place] [address] 04/08/2025 12:00 PM EST Office Visit [facility] Nephrology, Bone & Mineral Metabolism [address] [place] [address] David Workman MD [address] [place] [address] 09/30/2025 10:10 AM EDT Appointment P[facility] G Radiology [address] [place] [address] 09/30/2025 11:30 AM EDT Office Visit [facility] CC Head, Neck & Respiratory [address] , 2nd [place] [address] Aysha Crews MD [address] [place] [address] documented as of this encounter [...] documented as of this encounter Care Teams Handle Lathe Operator Relationship Specialty Start Date End Date Antwan Esparza MD [address] [place] [address] PCP - General 12/14/20 02/18/24 Inna Serrano APRN [address] [place] [address] PCP - General 02/19/24 Ángela Millard APRN [address] [place] [address] Nurse Practitioner Neurosurgery 09/17/21 documented as of this encounter
--- OUTSIDE RECORDS SUMMARY | 2025-02-14 13:58 | XMS_ITS | Encounter Summary ---
Author Organization [facility] Address [address] [place] [address] Care Team Providers Care Emergency Medical Technician Basic Name Role Phone Ángela Millard BROACH GRINDER Unavailable [phone] Inna Serrano APRN Primary Care Provider [phone] Reason for Visit * Reason Onset Date Comments HCN - Patient Message 12/09/2024 Encounter Details Date Type Department Care Team (Late st Contact Info) Description 12/09/2024 Telephone Physical Medicine & Rehabilitation Clinic at [facility] [address] [facility] [place] [address] Leslie Suarez DO [address] [facility] [address] [place] [address] HCN - Patient Message Social [...] functionsplease call to advise Best contact number: [phone] (mobile) Optimal time of day to reach caller: ANYTIME Additional comments/information from caller: None Note: Please do not reply to this message. Follow-up communication and further actions as a result of this message need to be communicated with the patient directly, if the patient is not active onMyChart. If the patient is active on MyChart, they will receive notification of the communication/outcome via [employer]. documented in this encounter Plan of Treatment Upcoming Encounters Date Type Department Care Team (Late st Contact Info) Description 02/19/2025 3:20 PM EDT Office Visit [facility] [address] [place] [address] Adonis Morrison LeslieDO [address] [place] [address] 04/08/2025 12:00 PM EST Office Visit [facility] Nephrology, Bone & Mineral Metabolism [address] [facility], [address] [place] [address] David Workman MD [address] [place] [address] 09/30/2025 10:10 AM EDT Appointment P[facility] G Radiology [address] [place] [address] 09/30/2025 11:30 AM EDT Office Visit [facility] CC Head, Neck & Respiratory [address] [facility], 2nd [place] [address] Aysha Crews MD [address] [facility] [address] [place] [address] documented as of this encounter Visit Diagnoses Not on filedocumented in this encounter Additional Health Concerns Assessment Noted Time A fall risk assessment has been complete d for the patient 11/11/2024 1:29 PM EDT A Body Mass Index follow-up plan has been documented for the patient 11/11/2024 5:31 PM EDT documented as of this encounter Care Teams Emergency Medical Technician Basic Relationship Specialty Start Date End Date Inna Serrano APRN [address] [place], [place] [id number] PCP - General 02/19/24 Ángela Millard APRN [address] [place] [address] Nurse Practitioner Neurosurgery 09/17/21 documented as of this encounter
--- OUTSIDE RECORDS SUMMARY | 2025-02-14 13:58 | XMS_ITS | Encounter Summary ---
Author Organization Healthcare Address [address] [place] [address] Care Team Providers Care Radiographer Technologist Name Role Phone Ángela Millard MARSH BUGGY OPERATOR Unavailable [phone] Inna Serrano APRN Primary Care Provider [phone] Reason for Visit * Reason Onset Date Comments HCN - Patient Message 12/02/2024 Encounter Details Date Type Department Care Team (Late st Contact Info) Description 12/02/2024 Telephone Physical Medicine & Rehabilitation Clinic at [facility] [address] [facility] [place] [address] Leslie Suarez DO [address] [facility] [address] [place] [address] HCN - Patient Message Social [...] Patient is going to be seeing a nut roaster helper due to his PCP finding lesions on his neck, face, stomach,and arms. He is also needing to let her know he is having a thermal-image scan on his heart as advised by his lumber planer and heart transplant doctors to determine if he is a candidate for a heart transplant. Best contact number: [phone] (mobile) Optimal time of day to reach [...] Visit Physical Medicine & Rehabilitation Clinic at [facility] [address] [place] [address] Leslie Suarez DO [address] [place] [address] 04/08/2025 12:00 PM EST Office Visit [facility] Nephrology, Bone & Mineral Metabolism [address] [facility], [address] [place] [address] David Workman MD [address] [place] [address] 09/30/2025 10:10 AM EDT Appointment [facility] G Radiology [address] [place] [address] 09/30/2025 11:30 AM EDT Office Visit [facility] Head, Neck & Respiratory [address] [facility], 2nd [place] [address] Aysha Crews MD [address] [place] [address] documented as of this encounter Visit Diagnoses Not on filedocumented in this encounter Additional Health Concerns Assessment Noted Time A fall risk assessment has been complete d for the patient 11/11/2024 1:29 PM EDT A Body Mass Index follow-up plan has been documented for the patient 11/11/2024 5:31 PM EDT documented as of this encounter Care Teams Radiographer Technologist Relationship Specialty Start Date End Date Inna Serrano APRN [address] [place] [address] PCP - General 02/19/24 Ángela Millard APRN [address] [place] [address] Nurse Practitioner Neurosurgery 09/17/21 documented as of this encounter
--- OUTSIDE RECORDS SUMMARY | 2025-02-14 13:58 | XMS_ITS | Encounter Summary ---
Author Organization Healthcare Address [address] [place] [address] Care Team Providers Care Natural Resource Officer Name Role Phone Delmer Fritz MD Primary Care Provider [phone] Antwan Esparza MD Primary Care Provider + [phone] Ángela Millard INSIDE TRUCKER Unavailable [phone] Inna Serrano APRN Primary Care Provider + [phone] Encounter Details Date Type Department Care Team (Late st Contact Info) Description 08/27/2018 Orders Only External Location [address] [place] [address] Provider, External Social History Tobacco Use Types [...] Visit [facility] at [facility] [address] [place] [address] Leslie Suarez DO [address] [place] [address] 04/08/2025 12:00 PM EST Office Visit [facility] Nephrology, Bone & Mineral Metabolism [address] [facility], [address] [place] [address] David Workman MD [address] [place] [address] 09/30/2025 10:10 AM EDT Appointment [facility] Radiology [address] [place] [address] 09/30/2025 11:30 AM EDT Office Visit [facility] Head, Neck & Respiratory [address] [facility], 2nd [place] [address] Aysha Crews MD [address] [place] [address] documented as of this encounter [...] on filedocumented in this encounter Care Teams Natural Resource Officer Relationship Specialty Start Date End Date Delmer Fritz MD [address] [facility] [address] [place] [address] PCP - General 10/02/20 12/13/20 Antwan Esparza MD [address] [place] [address] PCP - General 12/14/20 02/18/24 Inna Serrano APRN [address] [place] [address] PCP - General 02/19/24 Ángela Millard APRN [address] [place] [address] Nurse Practitioner Neurosurgery 09/17/21 documented as of this encounter
--- OUTSIDE RECORDS SUMMARY | 2025-02-14 13:58 | XMS_ITS | Encounter Summary ---
Author Organization Healthcare Address [address] [place] [address] Care Team Providers Care Sap Bpc Architect Name Role Phone Delmer Fritz MD Primary Care Provider [phone] Antwan Esparza MD Primary Care Provider + [phone] Ángela Millard BUSINESS UNIT LEADER Unavailable [phone] Inna Serrano APRN Primary Care Provider [phone] Encounter Details Date Type Department Care Team (Late st Contact Info) Description 02/09/2011 Orders Only External Location [address] [place] [address] Vin Ji MD [address] [facility] [place], [place] [id number] Social History Tobacco Use Types Packs/Day Years [...] [facility] at [facility] [address] [place] [address] Leslie Suarez DO [address] [facility] [address] [place] [address] 04/08/2025 12:00 PM EST Office Visit Professional [facility] Nephrology, Bone & Mineral Metabolism [address] [facility], [address] [place] [address] David Workman MD [address] [place] [address] 09/30/2025 10:10 AM EDT Appointment [facility] Radiology [address] [place] [address] 09/30/2025 11:30 AM EDT Office Visit [facility] Head, Neck & Respiratory [address] [facility], 2nd [place] [address] Aysha Crews MD [address] [place] [address] documented as of this encounter [...] on filedocumented in this encounter Care Teams Sap Bpc Architect Relationship Specialty Start Date End Date Delmer Fritz MD [address] [facility] [address] [place] [address] PCP - General 10/02/20 12/13/20 Antwan Esparza MD [address] [place] [address] PCP - General 12/14/20 02/18/24 Inna Serrano APRN [facility] [place] [address] PCP - General 02/19/24 Ángela Millard APRN [address] [place] [address] Nurse Practitioner Neurosurgery 09/17/21 documented as of this encounter
--- OUTSIDE RECORDS SUMMARY | 2025-02-14 13:58 | XMS_ITS | Encounter Summary ---
Author Organization Healthcare Address [address] [place] [address] Care Team Providers Care Pre Sales Architect Name Role Phone Delmer Fritz MD Primary Care Provider [phone] Antwan Esparza MD Primary Care Provider + [phone] Ángela Millard JAVA WEB USER INTERFACE DEVELOPER Unavailable [phone] Inna Serrano APRN Primary Care Provider + [phone] Encounter Details Date Type Department Care Team (Late st Contact Info) Description 02/08/2017 Orders Only External Location [address] [place] [address] Provider, External Social History Tobacco Use Types [...] at [facility] [address] [place] [address] Lesile Suarez DO [address] [place] [address] 04/08/2025 12:00 PM EST Office Visit [facility] Nephrology, Bone & Mineral Metabolism [address] [facility], [address] [place] [address] aDvid Workman MD [address] [place] [address] 09/30/2025 10:10 AM EDT Appointment [facility] Radiology [address] [place] [address] 09/30/2025 11:30 AM EDT Office Visit [facility] Head, Neck & Respiratory [address] [facility], 2nd [place] [address] Aysha Crews MD [address] [facility] [address] [place] [address] documented as of this encounter [...] on filedocumented in this encounter Care Teams Pre Sales Architect Relationship Specialty Start Date End Date Delmer Fritz MD [address] [place] [address] [address] [place] [address] PCP - General 10/02/20 12/13/20 Antwan Esparza MD [address] [place] [address] PCP - General 12/14/20 02/18/24 Inna Serrano APRN [address] [place] [address] PCP - General 02/19/24 Ángela Millard APRN [address] [facility] [address] [place] [address] Nurse Practitioner Neurosurgery 09/17/21 documented as of this encounter
--- OUTSIDE RECORDS SUMMARY | 2025-02-14 13:58 | XMS_ITS | Encounter Summary ---
Author Organization Healthcare Address [address] [place] [address] Care Team Providers Care Custodial Aide Name Role Phone Ángela Millard TREATING PLANT OPERATOR Unavailable [phone] Inna Serrano APRN Primary Care Provider [phone] Reason for Visit * Reason Onset Date Comments HCN Status Update Call #2 01/08/2025 Encounter Details Date Type Department Care Team (Late st Contact Info) Description 01/08/2025 Telephone Physical Medicine & Rehabilitation Clinic at [facility] [address] [facility] [place] [address] Leslie Suarez DO [address] [facility] [address] [place] [address] HCN Status Update Call #2 [...] of the initial request. Best contact number: [phone] (mobile) Optimal time of day to reach [...] will receive notification of the communication/outcome via [employer]. * Telephone Encounter - Malena Edmond - 01/09/2025 9:07 AM EDT Status Update Call #1 1st call regarding the status of the initial request. Best contact number: [phone] (mobile) Optimal time of day to reach [...] that the provider requested. Best contact number: [phone] (mobile) Optimal time of day to reach [...] [place] [facility] at [facility] [address] [place] [address] Leslie Suarez DO [address] [place] [address] 04/08/2025 12:00 PM EST Office Visit [facility] Nephrology, Bone & Mineral Metabolism [address] [facility] [place], [address] [place] [address] David Workman MD [address] [place] [address] 09/30/2025 10:10 AM EDT Appointment [facility] Radiology [address] [place] [address] 09/30/2025 11:30 AM EDT Office Visit [facility] Head, Neck & Respiratory [address] , [address] [place] [address] Aysha Crews MD [address] [place] [address] documented as of this encounter Visit Diagnoses Not on filedocumented in this encounter Additional Health Concerns Assessment Noted Time A fall risk assessment has been complete d for the patient 01/08/2025 1:58 PM EDT A Body Mass Index follow-up plan has been documented for the patient 01/08/2025 3:33 PM EDT documented as of this encounter Care Teams Custodial Aide Relationship Specialty Start Date End Date Inna Serrano APRN [address] [place], [place] [id number] PCP - General 02/19/24 Ángela Millard APRN [address] [place] [address] Nurse Practitioner Neurosurgery 09/17/21 documented as of this encounter
[2025-02-14 14:19] LABS: Hematocrit 47.4 % (42.0-52.0); Hemoglobin 16.7 g/dL (14.1-18.0); Mean Corpuscular HGB Conc 35.2 g/dL (31.8-35.4); Mean Corpuscular Hemoglobin 32.2 pg (27.0-31.2); Mean Corpuscular Volume 91.5 fl (80-94); Nucleated Red Blood Cells % 0 %; Platelet Count 154 K/mm3 (142-424); Red Blood Count 5.18 M/mm3 (4.60-6.20); Red Cell Distribution Width-SD 41.3 fL; White Blood Count 8.3 K/mm3 (4.8-10.8)
[2025-02-14 16:49] LABS: Anion Gap 12.5 mEq/L (5-15); Blood Urea Nitrogen 10 mg/dl (9-20); Calcium 8.8 mg/dl (8.4-10.2); Carbon Dioxide 25 mmol/L (22.0-30.0); Chloride 103 mmol/L (98-107); Creatinine,Serum 1.20 mg/dl (0.66-1.25); Estimated Glomerular Filt Rate 62 ml/min (>60); GFR (African American) 76 ML/MIN (>60); Glucose 86 mg/dl (74-100); Potassium 3.5 mmoL/L (3.5-5.1); Sodium 137 mmol/L (136-145)
== END 2025-02-14 23:59 | disposition home or self-care (01) ==
LOC: LAB 13:54
PROVIDERS: Internal Medicine Cardiovascular Disease; PCP Nurse Practitioner; Visit Provider Internal Medicine Cardiovascular Disease
DX: I50.32 Chronic diastolic (congestive) heart failure (principal); R94.39 Abnormal result of other cardiovascular function study
CPT/HCPCS: 36415; 80048; 85027

== ENCOUNTER 2025-02-27 12:33 | Outpatient (CLI) | payer MEDICAID, SELFPAY ==
--- NOTE | 2025-02-27 12:37 | XR_ITS ---
FINAL REPORT CLINICAL HISTORY: right wrist pain-- pt had heart cath and now pain lateral FINDINGS: AP, oblique, and lateral views of the right wrist were obtained. There is no prior exam for comparison. There is no acute fracture or dislocation. The joint spaces are preserved. The soft tissues are normal. IMPRESSION: No acute osseous abnormality of the right wrist. Reviewed, Interpreted and Dictated by Soni Tamayo MD Transcribed by Cinthia Chen Authenticated and [facility]
== END 2025-02-27 23:59 | disposition home or self-care (01) ==
LOC: RAD 12:34
PROVIDERS: PCP Nurse Practitioner; Visit Provider Orthopaedic Surgery
DX: M25.531 Pain in right wrist (principal); Z98.890 Other specified postprocedural states
CPT/HCPCS: 73110

== ENCOUNTER 2025-03-14 14:24 | Outpatient (CLI) | payer MEDICAID, SELFPAY ==
--- OUTSIDE RECORDS SUMMARY | 2024-04-27 17:00 | XMS_ITS ---
Author Organization [facility] Address [address] [place] [address] Care Team Providers Care Rehab Aid Name Role Phone Chayo Morrison Primary Care Provider Jared Philippe Unavailable Migration, Provider Unavailable Unavailable Allergies Allergen (clinical drug ingredient) Drug/Non Drug Allergy documented on EMR Reaction Allergy Type Onset Date Status IVP DYE (uncoded) anaphylaxis Allergy Active Non-steroidal anti-inflammatory agent (FN) NAIDS (uncoded) anaphylaxis Allergy Active Steroid STEROID (uncoded) anaphylaxis Allergy [facility] Conversion Encounter Medications Medication SIG (Take, [...] review and pick correct [facility]. If intended option is not shown, [...] Diagnosis Hakan Fry [address] [place] [address] 04/27/2024 Provider Migration Plan Of Treatment No Information Progress Notes * Luca KAUFFMAN DDOB: [birth year] (59 yo M)Acc No.[id number]:04/27/2024 Patient: Luca Jacobo Provider: Catalina neil Migration :1965 A ge:58 Y S ex:Male Date:04/27/2024 Address:[address], [facility], [id number] Pcp:Chayo Morrison Subjective: * Chief Complaints: * [facility] * Medications: T akingNitroglycerin 0.4 MG Tablet Sublingual 1 tab(s) sublingually every 5 minutes , Notes to Pharmacist: PRNLisinopril 10 MG Tablet 1 tab(s) orally once a day Losartan Potassium 50 MG Tablet 1 tab(s) orally once a day EPINEPHrine 0.3 MG KIT DIRECTED INTRAMUSCULARLY ONCE , Notes to Pharmacist: *Please review and pick correct strength-formulation from [employer] options. If intended option is not shown, [...] Electronic signature of Prov ider Migration on 03/14/2025 at 02:31 PM EDT Sign off status: Pending * Provider: Catalina neil Migration Date: 06/28/2023 Generated for Laurie johnson/Jovanna/Felixitting on: 02:31 PM EDT
--- OUTSIDE RECORDS SUMMARY | 2025-01-29 10:32 | XMS_ITS | Encounter Summary ---
[facility] Address [address] [place] [address] Care Team Providers Care Pump Press Operator Name Role Phone Delmer Fritz MD Primary Care Provider [phone] Reason for Referral * Cardiac Stress Testing (Routine) - Closed Specialty Diagnoses / Procedures Referred By Contac t Referred To Contact Diagnoses Chest pain, precordial Procedures Stress test with myocardial perfusion one day Antwan Armstrong MD [address] [place] [address] Phone: tel: fax: Referral ID Status Reason Start Date Expiration Date Visits Re quested Visits Authorized [id number] Closed 11/13/2024 02/12/2026 4 2 Reason for Visit * Cardiac Stress Testing (Routine) - Closed Specialty Diagnoses / Procedures Referred By Cortez johnson Referred To Contact Diagnoses Chest pain, precordial Procedures Stress test with myocardial perfusion one day Antwan Armstrong MD [address] [place], [place] [id number] Phone: tel: fax: Referral ID Status Reason Start Date Expiration Date Visits Re quested Visits Authorized [id number] Closed 11/13/2024 02/12/2026 4 2 Encounter Details Date Type Department Care Team (Latest Contact Info) Description 01/29/2025 10:32 AM EDT - 01/29/2025 11:59 PM EDT Hospital Encounter [facility] [address] [place] [address] Chest pain, precordial Discharge Disposition: Home or Self Care Social History Tobacco Use Types Packs/Day Years Used Date Smoking Tobacco: Every Day Cigarettes 0.3 38.8 Started: 1986 Smokeless Tobacco: Former Comments:has smoked [...] 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 cyclobenzaprine (FLEXERIL) 5 MG tablet Take 1 tablet by mouth 3 times a day. 07/17/2023 doxazosin (CARDURA) 4 MG tablet Take 1 tablet by mouth Daily. 09/28/2023 EPINEPHrine (EPIPEN) 0.3 MG/0.3ML solution auto-injector injection HYDROcodone-aceta minophen (NORCO) 5-325 MG per tablet Take 2 tablets by mouth 4 (Four) Times a Day. 06/28/2018 isosorbide mononitrate (IMDUR) 30 MG 24 hr tablet Take 1 tablet by mouth Daily. 06/11/2018 metoclopramide (REGLAN) 10 MG tablet Take 1 tablet by mouth 4 (Four) Times a Day Before Meals & at Bedtime. metoprolol succinate XL (TOPROL-XL) 100 MG 24 hr tablet 1 tablet Daily. 09/28/2023 nitroglycerin (NITROSTAT) 0.[address] 1 tablet under the tongue Every 5 (Five) Minutes As Needed for Chest Pain. Take no more than 3 doses in 15 minutes. ondansetron (ZOFRAN) 4 MG tablet Take 1 tablet by mouth As Needed. 11/21/2018 pantoprazole (PROTONIX) 40 MG EC tablet Take 1 tablet by mouth Daily. promethazine (PHENERGAN) 25 MG tablet Take 1 tablet by mouth Every 6 (Six) Hours As Needed. 11/21/2018 rosuvastatin (CRESTOR) 40 MG tablet Take 1 tablet by mouth Every Night. 07/17/2023 amLODIPine (NORVASC) 2.5 MG tablet Take 1 tablet by mouth Daily. 06/11/2018 02/17/2025 documented as of this encounter Plan of Treatment Not on file documented as of this encounter Procedures Procedure Name Priority Date/Time Associated Diagnosis Comments STRESS TEST, REGADENOSON W MYOCARDIAL PERFUSION SPECT (MULTI STUDY) Routine 01/29/2025 12:58 PM EDT Chest pain, precordial documented in this encounter Results * STRESS TEST, REGADENOSON W MYOCARDIAL PERFUSION SPECT (MULTI STUDY) (01/29/2025 12:58 PM EDT) [facility] CV STRESS PROTOCOL 1 Pharmacologic Stage 1 [...] 54.60 % Percent Target HR 64 % BH CV REST NUCLEAR ISOTOPE DOSE 9.8 mCi BH CV STRESS NUCLEAR ISOTOPE DOSE 31.8 mCi [...] during recovery: occasional PAC's, occasional PVC's. Test Ceramic Tile Installer ECG [place] us Antwan Armstrong MD CV STRESS ORDERABLES Final Result documented in this encounter Visit Diagnoses Diagnosis Chest pain, precordial Precordial pain documented in this encounter Administered Medications Inactive [...] dose documented in this encounter Care Teams Pump Press Operator Relationship Specialty Start Date End Date Delmer Fritz MD [address] [place] [address] PCP - General Family Medicine 08/07/24 documented as of this encounter
--- OUTSIDE RECORDS SUMMARY | 2025-01-29 12:15 | XMS_ITS | Encounter Summary ---
[facility] Address [address] [place] [address] Care Team Providers Care Licensed Electrician Name Role Phone Delmer Fritz MD Primary Care Provider [phone] Reason for Visit * Cardiac Stress Testing (Routine) - Closed Specialty Diagnoses / Procedures Referred By Cortez t Referred To Contact Diagnoses Chest pain, precordial Procedures Stress test with myocardial perfusion one day Antwan Armstrong MD [address] [address] Phone: tel: fax: Referral ID Status Reason Start Date Expiration Date Visits Re quested Visits Authorized [id number] Closed 11/13/2024 02/12/2026 4 2 Encounter Details Date Type Department Care Team (Latest Contact Info) Description 01/29/2025 12:15 PM EDT - 01/29/2025 11:59 PM EDT Hospital Encounter [facility] CARDI[facility]ULAR LAB [address] [place] [address] Discharge Disposition: Home or Self [...] 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
--- OUTSIDE RECORDS SUMMARY | 2025-02-17 06:20 | XMS_ITS | Encounter Summary ---
Author Organization [facility] Address [address] [place] [address] Care Team Providers Care Slab Stripper Name Role Phone Delmer Fritz MD Primary Care Provider [phone] Reason for Referral * Rehabilitation - Outpatient (Routine) - Pending Review Specialty Diagnoses / Procedures Referred By Contact Referred To Contact Cardiac Rehabilitation Diagnoses S/P angioplasty with stent Procedures ID OFFICE/OUTPATIENT NEW MODERATE MDM 45 MINUTES Emir Morales MD [address] [place] [address] Phone: tel: fax: [facility] [address] [place] [address] Phone: tel: Referral ID Status Reason Start Date Expiration Date V isits Requested Visits Authorized [id number] Pending Review 02/17/2025 05/19/2026 1 1 * Diagnostic Medical (Routine) - Pending Review Specialty Diagnoses / Procedures Referred By Contac t Referred To Contact Diagnoses Chest pain, unspecified type Abnormal nuclear stress test Procedures Cardiac Catheterization/Vascular Study Emir Morales MD [address] [place] [address] Phone: tel: fax: Referral ID Status Reason Start Date Expiration Date V isits Requested Visits Authorized [id number] Pending Review 02/11/2025 05/13/2026 1 1 Reason for Visit * Auth/Cert (Routine) Specialty Diagnoses / Procedures Referred By Contac t Referred To Contact Diagnoses Chest pain, unspecified type Abnormal nuclear stress test Procedures ID CATH PLMT L HRT & ARTS W/NJX & ANGIO IMG S&I Left Heart Cath Referral ID Status Reason Start Date Expiration Date Visits Re quested Visits Authorized [id number] 1 1 Encounter Details Date Type Department Care Team (Late st Contact Info) Description 02/17/2025 6:20 AM EDT - 02/17/2025 12:13 PM EDT Hospital Encounter [facility] [address] [place] [address] Emir Morales MD [address] [place] [address] S/P angioplasty with stent (Primary Dx); Chest [...] 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 Suicidal Behavior (Lifetime) No 6:45 AM EDT Muna Rothman RN documented as of this encounter Discharge Instructions * Attachments The following attachments cannot be sent through Care Everywhere. * Radial Site Care (Mozambican) * Moderate Conscious Sedation Adult Care After ([place]ozambican) * Coronary Angiogram With Stent ([place]oz[place]ican) * Aspirin Tablets ([place]ozambican) * Prasugrel Tablets ([place]ozambican) * Steps to Quit Smoking ([place]ozambican) * Managing the Challenge of Quitting Smoking ([place]oz[place]ican) documented in this encounter Medications at Time [...] Morales MD - 02/17/2025 7:10 AM EDT [facility] IP Progress Note Chief Complaint: Dyspnea/HFpEF/abnormal stress test Subjective The patient is a 59-year-old male with symptoms of dyspnea on exertion and chronic edema. He has been managed for HFpEF and had a myocardial perfusion stress test for ischemic evaluation which was abnormal. He is not referred for cardiac attrition study by his primary certified orthotic fitter Dr. Armstrong. Patient reports a contrast allergy [...] medical management per guidelines. Emir Morales MD, [facility], [facility] documented in this encounter Consult Notes * Cruz Salazar RN - 02/17/2025 8:49 AM EDT Chart review for critical care educator consult. At the time of this [...] percutaneous anterior wall puncture technique. A 6 [place] arterial sheath was placed. Above procedures were [...] Activated Clotting Time (02/17/2025 8:16 AM EDT) [facility] Activated Clotting Time 389(H) 82 - 152 Seconds 02/17/2025 12:10 PM EDT [facility] Comment:Serial Number: [id number]: [id number] Blood 02/17/2025 8:16 AM EDT 02/17/2025 12:10 PM EDT us Emir Morales MD POINT OF CARE TEST ORDERABLES Fi nal Result [facility]
[address] [place] [address], * Telemetry Scan (02/17/2025 7:14 AM EDT) [facility] Onbase ECG ORDERABLES Final Result * (ABNORMAL) POC Creatinine (02/17/2025 6:57 AM EDT) Creatinine 1.40(H) 0.60 - 1.30 mg/dL 02/17/2025 7:15 AM EDT [facility] Comment:Serial Number: [id number]: [id number] Blood 02/17/2025 6:57 AM EDT 02/17/2025 7:15 AM EDT Emir Morales MD POINT OF CARE TEST ORDERABLES Fi nal Result Performing Organization Address [facility]/ZIP Co de Phone Number [facility]
[address] [place] [address], * (ABNORMAL) Lipid Panel (02/17/2025 6:55 AM EDT) Total Cholesterol 125 0 - 200 mg/dL 02/17/2025 7:38 AM EDT [facility] Triglycerides 78 0 - 150 mg/dL 02/17/2025 7:38 AM EDT [facility] HDL Cholesterol 31(L) 40 - 60 mg/dL 02/17/2025 7:38 AM EDT [facility] LDL Cholesterol 78 0 - 100 mg/dL 02/17/2025 7:38 AM EDT [facility] VLDL Cholesterol 16 5 - 40 mg/dL 02/17/2025 7:38 AM EDT [facility] LDL/HDL Ratio 2.53 02/17/2025 7:38 AM EDT [facility] Blood Line / Unknown 02/17/2025 6: 55 AM EDT 02/17/2025 7:13 AM EDT [facility] - 02/17/2025 7:38 AM EDT [...] MD LAB BLOOD ORDERABLES Final Resul t [facility]
[address] [place] [address], * Hemoglobin A1c (02/17/2025 6:55 AM EDT) Hemoglobin A1C 5.16 4.80 - 5.60 % 02/17/2025 8:32 AM EDT [facility] Blood Line / Unknown 02/17/2025 6: 55 AM EDT 02/17/2025 7:12 AM EDT [facility] - 02/17/2025 8:32 AM EDT Hemoglobin A1C Ranges: Increased Risk for Diabetes 5.7% to 6.4% Diabetes >= 6.5% Diabetic Goal < 7.0% us Emir Morales MD LAB BLOOD ORDERABLES Final Resul t [facility]
[address] [place] [address], * (ABNORMAL) Basic Metabolic Panel (02/17/2025 6:55 AM EDT) [facility] Glucose 90 65 - 99 mg/dL 02/17/2025 7:38 AM EDT [facility] BUN 8.0 6.0 - 20.0 mg/dL 02/17/2025 7:38 AM EDT [facility] Creatinine 1.29(H) 0.76 - 1.27 mg/dL 02/17/2025 7:38 AM EDT [facility] Sodium 141 136 - 145 mmol/L 02/17/2025 7:38 AM EDT [facility] Potassium 3.5 3.5 - 5.2 mmol/L 02/17/2025 7:38 AM EDT [facility] Chloride 104 98 - 107 mmol/L 02/17/2025 7:38 AM EDT [facility] CO2 27.5 22.0 - 29.0 mmol/L 02/17/2025 7:38 AM EDT [facility] Calcium 8.9 8.6 - 10.5 mg/dL 02/17/2025 7:38 AM EDT [facility] BUN/Creatinine Ratio 6.2(L) 7.0 - 25.0 02/17/2025 7:38 AM EDT [facility] Anion Gap 9.5 5.0 - 15.0 mmol/L 02/17/2025 7:38 AM EDT [facility] eGFR 64.7 >60.0 mL/min/1.7 3 02/17/2025 7:38 AM EDT [facility] Blood Line / Unknown 02/17/2025 6 :55 AM EDT 02/17/2025 7:13 AM EDT Narrative [facility] - 02/17/2025 7:38 AM EDT GFR [...] MD LAB BLOOD ORDERABLES Final Resul t [facility]
[address] [place] [address], * (ABNORMAL) CBC (No Diff) (02/17/2025 6:55 AM EDT) WBC 7.66 3.40 - 10.80 10*3/mm3 02/17/2025 7:28 AM EDT [facility] RBC 5.14 4.14 - 5.80 10*6/mm3 02/17/2025 7:28 AM EDT [facility] Hemoglobin 15.9 13.0 - 17.7 g/dL 02/17/2025 7:28 AM EDT [facility] Hematocrit 48.2 37.5 - 51.0 % 02/17/2025 7:28 AM EDT [facility] MCV 93.8 79.0 - 97.0 fL 02/17/2025 7:28 AM EDT [facility] MCH 30.9 26.6 - 33.0 pg 02/17/2025 7:28 AM EDT [facility] MCHC 33.0 31.5 - 35.7 g/dL 02/17/2025 7:28 AM EDT [facility] RDW 12.6 12.3 - 15.4 % 02/17/2025 7:28 AM EDT [facility] RDW-SD 43.5 37.0 - 54.0 fl 02/17/2025 7:28 AM EDT [facility] MPV 12.5(H) 6.0 - 12.0 fL 02/17/2025 7:28 AM EDT [facility] Platelets 135(L) 140 - 450 10*3/mm3 02/17/2025 7:28 AM EDT [facility] Blood Line / Unknown 02/17/2025 6: 55 AM EDT 02/17/2025 7:12 AM EDT Emir Morales MD LAB BLOOD ORDERABLES Final Resul t [facility]
[address] [place] [address], documented in this encounter Visit Diagnoses Diagnosis [...] at 0828 0828 (Given - Provid er: Emir Morales MD) labetalol (NORMODYNE,TRANDATE) injection (CANCELED) Code [...] ANNIKA) documented in this encounter Care Teams Slab Stripper Relationship Specialty Start Date End Date Delmer Fritz MD [address] [place] [address] PCP - General Family Medicine 08/07/24 documented as of this encounter
--- OUTSIDE RECORDS SUMMARY | 2025-02-17 08:00 | XMS_ITS | Encounter Summary ---
Author Organization [facility] ystem Address [address] [place] [address] Care Team Providers Care Fountain Clerk Name Role Phone Delmer Fritz MD Primary Care Provider [phone] Reason for Visit * Auth/Cert (Routine) Specialty Diagnoses / Procedures Referred By Contac t Referred To Contact Diagnoses Chest pain, unspecified type Abnormal nuclear stress test Procedures [place] CATH PLMT L HRT & ARTS W/NJX & ANGIO IMG S&I Left Heart Cath Referral ID Status Reason Start Date Expiration Date Visits Re quested Visits Authorized [id number] 1 1 Encounter Details Date Type Department Care Team (Late st Contact Info) Description 02/17/2025 8:00 AM EDT - 02/17/2025 9:00 AM EDT Surgery [facility] ALMOND BLANCHER [address] [place] [id number] Emir Morales MD [address] [facility] [address] [place] [address] Left Heart Cath - Right radial access [[id number] (CPT )] Social History Tobacco Use Types [...] 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 Suicidal Behavior (Lifetime) No 6:45 AM EDT Muna Rothman RN documented as of this encounter Discharge Instructions * Attachments The following attachments cannot be sent through Care Everywhere. * Radial Site Care (N[place]alese) * Moderate Conscious Sedation Adult Care After (Nepalese) * Coronary Angiogram With Stent (Nepalese) * Aspirin Tablets (Nepalese) * Prasugrel Tablets (Nepalese) * Steps to Quit Smoking ([place]alese) * Managing the Challenge of Quitting Smoking ([place]alese) documented in this encounter Medications at Time [...] as of this encounter H&P Notes * Eimr Morales MD - 02/17/2025 7:10 AM EDT [facility] IP Progress Note Chief Complaint: Dyspnea/HFpEF/abnormal stress test Subjective The patient is a 59-year-old male with symptoms of dyspnea on exertion and chronic edema. He has been managed for HFpEF and had a myocardial perfusion stress test for ischemic evaluation which was abnormal. He is not referred for cardiac attrition study by his primary fruit and vegetable factory worker Dr. Armstrong. Patient reports a contrast allergy [...] medical management per guidelines. Emir Morales MD, [facility], [facility] documented in this encounter Consult Notes * Cruz Salazar RN - 02/17/2025 8:49 AM EDT Chart review for nurse informatics educator consult. At the time of this [...] AM Referred By: Confirmed By: CONSTANTIN NAZARIO us Emir Morales MD ECG ORDERABLES [...] percutaneous anterior wall puncture technique. A 6 Serbian arterial sheath was placed. Above procedures were [...] - 152 Seconds 02/17/2025 12:10 PM EDT [facility] Comment:Serial Number: [id number]: [id number] Blood 02/17/2025 8:16 AM EDT 02/17/2025 12:10 PM EDT Emir Morales MD POINT OF CARE TEST ORDERABLES Fi nal Result [facility]
[address] [place] [address], * Telemetry Scan (02/17/2025 7:14 AM EDT) [facility] ECG ORDERABLES Final Result * (ABNORMAL) POC Creatinine (02/17/2025 6:57 AM EDT) Creatinine 1.40(H) 0.60 - 1.30 mg/dL 02/17/2025 7:15 AM EDT [facility] Comment:Serial Number: [id number]: [id number] Blood 02/17/2025 6:57 AM EDT 02/17/2025 7:15 AM EDT Emir Morales MD POINT OF CARE TEST ORDERABLES Fi nal Result [facility]
[address] [place] [address], * (ABNORMAL) Lipid Panel (02/17/2025 6:55 AM EDT) Total Cholesterol 125 0 - 200 mg/dL 02/17/2025 7:38 AM EDT [facility] Triglycerides 78 0 - 150 mg/dL 02/17/2025 7:38 AM EDT [facility] HDL Cholesterol 31(L) 40 - 60 mg/dL 02/17/2025 7:38 AM EDT [facility] LDL Cholesterol 78 0 - 100 mg/dL 02/17/2025 7:38 AM EDT [facility] VLDL Cholesterol 16 5 - 40 mg/dL 02/17/2025 7:38 AM EDT [facility] LDL/HDL Ratio 2.53 02/17/2025 7:38 AM EDT [facility] Blood Line / Unknown 02/17/2025 6: 55 AM EDT 02/17/2025 7:13 AM EDT Narrative [facility] - 02/17/2025 7:38 AM EDT Cholesterol [...] MD LAB BLOOD ORDERABLES Final Resul t [facility]
[address] [place] [address], * Hemoglobin A1c (02/17/2025 6:55 AM EDT) Hemoglobin A1C 5.16 4.80 - 5.60 % 02/17/2025 8:32 AM EDT [facility] Blood Line / Unknown 02/17/2025 6: 55 AM EDT 02/17/2025 7:12 AM EDT Narrative [facility] - 02/17/2025 8:32 AM EDT Hemoglobin A1C Ranges: Increased Risk for Diabetes 5.7% to 6.4% Diabetes >= 6.5% Diabetic Goal < 7.0% Emir Morales MD LAB BLOOD ORDERABLES Final Resul t [facility]
[address] [place] [address], * (ABNORMAL) Basic Metabolic Panel (02/17/2025 6:55 AM EDT) Glucose 90 65 - 99 mg/dL 02/17/2025 7:38 AM EDT [facility] BUN 8.0 6.0 - 20.0 mg/dL 02/17/2025 7:38 AM EDT [facility] Creatinine 1.29(H) 0.76 - 1.27 mg/dL 02/17/2025 7:38 AM EDT [facility] Sodium 141 136 - 145 mmol/L 02/17/2025 7:38 AM EDT [facility] Potassium 3.5 3.5 - 5.2 mmol/L 02/17/2025 7:38 AM EDT [facility] Chloride 104 98 - 107 mmol/L 02/17/2025 7:38 AM EDT [facility] CO2 27.5 22.0 - 29.0 mmol/L 02/17/2025 7:38 AM EDT [facility] Calcium 8.9 8.6 - 10.5 mg/dL 02/17/2025 7:38 AM EDT [facility] BUN/Creatinine Ratio 6.2(L) 7.0 - 25.0 02/17/2025 7:38 AM EDT [facility] Anion Gap 9.5 5.0 - 15.0 mmol/L 02/17/2025 7:38 AM EDT [facility] eGFR 64.7 >60.0 mL/min/1.7 3 02/17/2025 7:38 AM EDT [facility] Blood Line / Unknown 02/17/2025 6: 55 AM EDT 02/17/2025 7:13 AM EDT [facility] - 02/17/2025 7:38 AM EDT GFR [...] MD LAB BLOOD ORDERABLES Final Resul t [facility]
[address] [place] [address], * (ABNORMAL) CBC (No Diff) (02/17/2025 6:55 AM EDT) WBC 7.66 3.40 - 10.80 10*3/mm3 02/17/2025 7:28 AM EDT [facility] RBC 5.14 4.14 - 5.80 10*6/mm3 02/17/2025 7:28 AM EDT [facility] Hemoglobin 15.9 13.0 - 17.7 g/dL 02/17/2025 7:28 AM EDT [facility] Hematocrit 48.2 37.5 - 51.0 % 02/17/2025 7:28 AM EDT [facility] MCV 93.8 79.0 - 97.0 fL 02/17/2025 7:28 AM EDT [facility] MCH 30.9 26.6 - 33.0 pg 02/17/2025 7:28 AM EDT [facility] MCHC 33.0 31.5 - 35.7 g/dL 02/17/2025 7:28 AM EDT [facility] RDW 12.6 12.3 - 15.4 % 02/17/2025 7:28 AM EDT [facility] RDW-SD 43.5 37.0 - 54.0 fl 02/17/2025 7:28 AM EDT [facility] MPV 12.5(H) 6.0 - 12.0 fL 02/17/2025 7:28 AM EDT [facility] Platelets 135(L) 140 - 450 10*3/mm3 02/17/2025 7:28 AM EDT [facility] Blood Line / Unknown 02/17/2025 6: 55 AM EDT 02/17/2025 7:12 AM EDT Emir Morales MD LAB BLOOD ORDERABLES Final Resul t [facility]
[address] [place] [address], documented in this encounter Visit Diagnoses Diagnosis [...] 5-8 1105 (Given - Provid er: Shelley Jean, RN) diphenhydrAMINE (BENADRYL) capsule 50 mg (COMPLETED) [...] RN) documented in this encounter Care Teams Fountain Clerk Relationship Specialty Start Date End Date Delmer Fritz MD [address] [place] [address] PCP - General Family Medicine 08/07/24 documented as of this encounter
--- OUTSIDE RECORDS SUMMARY | 2025-02-20 14:30 | XMS_ITS | Encounter Summary ---
Author Organization Healthcare Address [address] [place] [address] Care Team Providers Care Animal Care Assistant Name Role Phone Ángela Millard GEOLOGIC TECHNICIAN Unavailable [phone] Inna Serrano APRN Primary Care Provider [phone] Reason for Visit * Reason Comments Follow-up Back Pain Encounter Details Date Type Department Care Team (Late st Contact Info) Description 02/20/2025 2:30 PM EDT Office Visit Physical Medicine & Rehabilitation Clinic at [facility] [address] [place] [address] Leslie Suarez DO [address] [facility] [address] [place] [address] Chronic bilateral low back pain [...] Month) No 02/20/2025 2:45 PM EDT Angélica Gonzalse LPN 6. Suicidal Behavior (Lifetime) No 02/20/2025 [...] meds and has a new one to steel pickler soon. Does not need any meds refills. [...] injection syringe, , Disp: , Rfl: HYDROcodone-acetaminophen ([place]) 5-325 MG tablet, Take 1 tablet by [...] tingling consistent with radial nerve palsy Recent [place] Abnormal PET scan Plan: -Italo report reviewed [...] Patient confirms they are physically located in [place]? Yes If the patient is not physically located in [place], the provider has confirmed with Legal thatthe [...] 04/08/2025 12:00 PM EST Office Visit Professional [facility] Nephrology, Bone & Mineral Metabolism [address], [address] [place] [address] David Workman MD [address] [place] [address] 05/19/2025 1:00 PM EST Office Visit Physical Medicine & Rehabilitation Clinic at [facility] [address] [place] [address] Leslie Suarez DO [address] [place] [address] 09/30/2025 10:10 AM EDT Appointment [facility] Radiology [address] [place] [address] 09/30/2025 11:30 AM EDT Office Visit [facility] Head, Neck & Respiratory [address] [facility]nd [place] [address] Aysha Crews MD [address] [facility] [address] [place] [address] documented as of this encounter [...] documented as of this encounter Care Teams Animal Care Assistant Relationship Specialty Start Date End Date Inna Serrano APRN [address] [place] [address] PCP - General 02/19/24 Ángela Millard APRN [address] [facility] [address] [place] [address] Nurse Practitioner Neurosurgery 09/17/21 documented as of this encounter
--- NOTE | 2025-03-14 14:27 | CA_ITS ---
FINAL REPORT CLINICAL HISTORY: DIZZINESS,CAD COMPARISON: None FINDINGS: RIGHT CAROTID: CCA PSV -82 cm/sec ICA PSV -76 cm/sec ICA/CCA PSV ratio -1. Comments: Minimal plaque disease is noted. LEFTCAROTID: CCA PSV -85. cm/sec ICA PSV -60. cm/sec ICA/CCA PSV ratio -1.0. Comments: Minimal plaque disease is noted. Antegrade flow is seen within the vertebral arteries. IMPRESSION: Carotid stenosis classified less than 50% Reviewed, Interpreted and Dictated by Shawn Galan MD Transcribed by Barby Lund Authenticated and [facility]
--- OUTSIDE RECORDS SUMMARY | 2025-03-14 14:27 | XMS_ITS | Encounter Summary ---
Author Organization Healthcare Address [address] [place] [address] Care Team Providers Care Service Planner Name Role Phone Antwan Esparza MD Primary Care Provider [phone] Ángela Millard MIRROR MACHINE FEEDER Unavailable [phone] Inna Serrano APRN Primary Care Provider [phone] Encounter Details Date Type Department Care Team ([facility] Contact Info) Description 12/24/2020 Orders Only External Location [address] [place] [address] Provider, External Social History Tobacco Use Types [...] Upcoming Encounters Date Type Department Care Team ([facility] Contact Info) Description 04/08/2025 12:00 PM EST Office Visit [facility] [place] Nephrology, Bone & Mineral Metabolism [address], [address] [place] [address] David Workman MD [address] [place] [address] 05/19/2025 1:00 PM EST Office Visit [facility] [address] [place] [address] Adonis Prince LeslieDO [address] [place] [address] 09/30/2025 10:10 AM EDT Appointment [facility] Radiology [address] [place] [address] 09/30/2025 11:30 AM EDT Office Visit [facility] Head[facility] Neck & Respiratory [address] [place] [address] Aysha Crews MD [address] [place] [address] documented as of this encounter [...] documented as of this encounter Care Teams Service Planner Relationship Specialty Start Date End Date Antwan Esparza MD [address] [place] [address] PCP - General 12/14/20 02/18/24 Inna Serrano APRN [address] [place] [address] PCP - General 02/19/24 Ánegla Millard APRN [address] [place] [address] Nurse Practitioner Neurosurgery 09/17/21 documented as of this encounter
--- OUTSIDE RECORDS SUMMARY | 2025-03-14 14:27 | XMS_ITS | Clinical Summary ---
Author Organization [facility] Address [address] [place] [address] Phone Care Team Providers Care Polisher Brass Name Role Phone Unavailable Primary Care Provider [...] of 2) 11/13/2017 COVID-19 Vaccine (1 - 2024-2 6 season) 2025 Influenza Vaccine (#1) 2025 Meningococcal B Vaccine Aged Out No l onger eligible based on patient's age to complete this topic Insurance [facility] [id number] [facility]
--- OUTSIDE RECORDS SUMMARY | 2025-03-14 14:27 | XMS_ITS | Clinical Summary ---
[facility] Address [address] [place] [address] Care Team Providers Care Clinical Administrative Coordinator Name Role Phone Delmer Fritz MD Primary Care Provider [phone] Allergies Active Allergy Reactions Criticality Noted Date Comments Aspirin GI Bleeding High 02/17/2025 Ciprofloxacin Anaphylaxis,Swellin g High 09/06/2018 Contrast Dye [...] tablet Take 1 tablet by mouth Daily. 9 Active HYDROcodone-nelida taminophen (NORCO) 5-325 MG per tablet Take 2 tablets by mouth 4 (Four) Times a Day. 9 Active nitroglycerin (NITROSTAT) 0.[address] 1 tablet under the tongue Every 5 (Five) Minutes As Needed for Chest Pain. Take no more than 3 doses in 15 minutes. Active pantoprazole (PROTONIX) 40 MG EC tablet Take 1 tablet by mouth Daily. Active ondansetron (ZOFRAN) 4 MG tablet Take 1 tablet by mouth As Needed. 9 Active promethazine (PHENERGAN) 25 MG tablet Take 1 tablet by mouth Every 6 (Six) Hours As Needed. 9 Active cyclobenzaprine (FLEXERIL) 5 MG tablet Take 1 tablet by mouth 3 times a day. 4 Active benzonatate (TESSALON) 100 MG capsule Take 1 capsule by mouth 3 (Three) Times a Day As Needed for Cough. Active metoprolol succinate XL (TOPROL-XL) 100 MG 24 hr tablet 1 tablet Daily. 4 Active doxazosin (CARDURA) 4 MG tablet Take 1 tablet by mouth Daily. 4 Active EPINEPHrine (EPIPEN) 0.3 MG/0.3ML solution auto-injector injection Active rosuvastatin (CRESTOR) 40 MG tablet Take 1 tablet by mouth Every Night. 4 Active metoclopramide (REGLAN) 10 MG tablet Take 1 tablet by mouth 4 (Four) Times a Day Before Meals & at Bedtime. Active sacubitril-vals diane (Entresto) 97-103 MG tablet Take 1 tablet by mouth 2 (Two) Times a Day. Active amLODIPine (NORVASC) 5 MG tablet Take 1 tablet by mouth Daily. 90 tablet 1 02/17/2025 9:50 AM EDT 5 Active aspirin 81 MG EC tablet Take 1 tablet by mouth Daily. 100 tablet 1 02/17/2025 9:50 AM EDT 5 Active prasugrel (EFFIENT) 10 MG tablet Take 1 tablet by mouth Daily. 90 tablet 3 02/17/2025 9:50 AM EDT 5 Active amLODIPine (NORVASC) 2.5 MG tablet Take 1 tablet by mouth Daily. 9 025 Discontinued Active Problems Problem Noted Date Diagnosed Date Chest pain 02/05/2025 Abnormal nuclear stress test 02/05/2025 Bilateral pulmonary nodules (Largest 8mm in LLL) Incidental 08/21/2018 Tobacco abuse (Resolved x 1 month) 08/21/2018 Stage IV (very severe) COPD 08/21/2018 H/O Asbestos exposure 08/21/2018 Chronic back pain (Chronic narcotics) 08/21/2018 Encounters Date Type Department Care Team Description 02/24/2025 Telephone [facility]ILI[facility]ATION [address] [place] [address] Lakshmi Vazquez, ANNIKA 02/19/2025 Telephone [facility] [address] [facility] [address] [place] [phone] Emir Morales MD MEDICATION CONCERN 02/18/2025 Call Center Programs [facility] NURSE CALL [facility] [address] [place] [address] Nanette Sullivan RN 02/18/2025 Documentation [facility] [address] [place] [address] Rita Olvera MA 02/17/2025 8:00 AM EDT - 02/17/2025 9:00 AM EDT Surgery [facility] TELL[facility] [address] [place] [address] Emir Morales MD Left Heart Cath - Right radial access [06602 (CPT )] 02/17/2025 6:20 AM EDT - 02/17/2025 12:13 PM EDT Hospital Encounter [facility] CVOU [address] [place] [address] Emir Morales MD S/P angioplasty with stent (Primary Dx); Chest pain, unspecified type; Abnormal nuclear stress test Discharge Disposition: Home or Self Care 02/17/2025 Travel 02/12/2025 Telephone [facility] [address] [facility] [address] [place] [address] Emir Morales MD 02/10/2025 Telephone [facility] [address] [facility] [address] [place] [address] Emir Morales MD 01/29/2025 12:15 PM EDT - 01/29/2025 11:59 PM EDT Hospital Encounter [facility] CARDIOVASCULAR LAB [address] [place] [address] Discharge Disposition: Home or Self Care 01/29/2025 10:32 AM EDT - 01/29/2025 11:59 PM EDT Hospital Encounter [facility] [address] [facility] [address] [place] [address] Chest pain, precordial Discharge Disposition: Home or [...] 0.3 38.8 Started: 1986 Smokeless Tobacco: Former Tobacco Cessation:Ready [...] 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 Not on file Not [...] Mass Index 34.44 02/17/2025 6:29 AM EDT Plan of Treatment Health Maintenance Due [...] Pneumococcal Vaccine 50+ (2 of 2 - PPSV23, PCV20, or PCV21) 04/01/2024 02/05/2024, 05/23/2018 INFLUENZA VACCINE 12/20/2024 05/23/2018, 03/01/2011 Medical Devices Implanted Type Area Residence Life Director Device Identifier Shelf Expiration Date Model / Serial / Lot Stnt Cornry Rx Xience/Skypoi nt Rapdxng 3x15mm - [id number] Implanted:Qty : 1 on 02/17/2025 by Emir Morales MD at [facility] N/A: Coronary BORGES VASCULAR [id number] / / [id number] Procedures Procedure Name Priority Date/Time Associated Diagnosis [...] POCT CREATININE Routine 02/17/2025 6:57 AM EDT LIPID PANEL Routine 02/17/2025 6:55 AM EDT HEMOGLOBIN A1C Routine 02/17/2025 6:55 AM EDT BASIC METABOLIC PANEL STAT 02/17/2025 6:55 AM EDT CBC (NO DIFF) STAT 02/17/2025 6:55 AM EDT SCANNED - LABS 02/14/2025 STRESS TEST, REGADENOSON W MYOCARDIAL PERFUSION SPECT (MULTI STUDY) Routine 01/29/2025 12:58 PM EDT Chest pain, precordial from Last 3 Months Results * ECG 12 Lead Other; Post-Cath [...] percutaneous anterior wall puncture technique. A 6 Estonian arterial sheath was placed. Above procedures were [...] Activated Clotting Time (02/17/2025 8:16 AM EDT) [facility] Signature Activated Clotting Time 389(H) 82 - 152 Seconds 02/17/2025 12:10 PM EDT [facility] Comment:Serial Number: [id number]: [id number] Blood 02/17/2025 8:16 AM EDT 02/17/2025 12:10 PM EDT us Emir Moraels MD POINT OF CARE TEST ORDERABLES Fi nal Result [facility]
[address] [place] [address], * Telemetry Scan (02/17/2025 7:14 AM EDT) [facility] Onbase ECG ORDERABLES Final Result * (ABNORMAL) POC Creatinine (02/17/2025 6:57 AM EDT) Creatinine 1.40(H) 0.60 - 1.30 mg/dL 02/17/2025 7:15 AM EDT [facility] Comment:Serial Number: [id number]: [id number] Blood 02/17/2025 6:57 AM EDT 02/17/2025 7:15 AM EDT Emir Morales MD POINT OF CARE TEST ORDERABLES Fi nal Result [facility]
[address] [place] [address], * (ABNORMAL) CBC (No Diff) (02/17/2025 6:55 AM EDT) WBC 7.66 3.40 - 10.80 10*3/mm3 02/17/2025 7:28 AM EDT [facility] RBC 5.14 4.14 - 5.80 10*6/mm3 02/17/2025 7:28 AM EDT [facility] Hemoglobin 15.9 13.0 - 17.7 g/dL 02/17/2025 7:28 AM EDT [facility] Hematocrit 48.2 37.5 - 51.0 % 02/17/2025 7:28 AM EDT [facility] MCV 93.8 79.0 - 97.0 fL 02/17/2025 7:28 AM EDT [facility] MCH 30.9 26.6 - 33.0 pg 02/17/2025 7:28 AM EDT [facility] MCHC 33.0 31.5 - 35.7 g/dL 02/17/2025 7:28 AM EDT [facility] RDW 12.6 12.3 - 15.4 % 02/17/2025 7:28 AM EDT [facility] RDW-SD 43.5 37.0 - 54.0 fl 02/17/2025 7:28 AM EDT [facility] MPV 12.5(H) 6.0 - 12.0 fL 02/17/2025 7:28 AM EDT [facility] Platelets 135(L) 140 - 450 10*3/mm3 02/17/2025 7:28 AM EDT [facility] Blood Line / Unknown 02/17/2025 6: 55 AM EDT 02/17/2025 7:12 AM EDT us Emir Morales MD LAB BLOOD ORDERABLES Final Resul t Performing Organization Address [facility] de Phone Number [facility]
[address] [place] [address], * Hemoglobin A1c (02/17/2025 6:55 AM EDT) Hemoglobin A1C 5.16 4.80 - 5.60 % 02/17/2025 8:32 AM EDT [facility] Blood Line / Unknown 02/17/2025 6: 55 AM EDT 02/17/2025 7:12 AM EDT Narrative [facility] - 02/17/2025 8:32 AM EDT Hemoglobin A1C Ranges: Increased Risk for Diabetes 5.7% to 6.4% Diabetes >= 6.5% Diabetic Goal < 7.0% us Emir Morales MD LAB BLOOD ORDERABLES Final Resul t Performing Organization Address City/[facility] Co de Phone Number [facility]
[address] [place] [address], * (ABNORMAL) Lipid Panel (02/17/2025 6:55 AM EDT) Total Cholesterol 125 0 - 200 mg/dL 02/17/2025 7:38 AM EDT [facility] Triglycerides 78 0 - 150 mg/dL 02/17/2025 7:38 AM EDT [facility] HDL Cholesterol 31(L) 40 - 60 mg/dL 02/17/2025 7:38 AM EDT [facility] LDL Cholesterol 78 0 - 100 mg/dL 02/17/2025 7:38 AM EDT [facility] VLDL Cholesterol 16 5 - 40 mg/dL 02/17/2025 7:38 AM EDT [facility] LDL/HDL Ratio 2.53 02/17/2025 7:38 AM EDT [facility] Blood Line / Unknown 02/17/2025 6: 55 AM EDT 02/17/2025 7:13 AM EDT Narrative [facility] - 02/17/2025 7:38 AM EDT [...] is calculated using the NIH LDL-C calculation. Emir Morales MD LAB BLOOD ORDERABLES Final Resul t [facility]
[address] [place] [address], * (ABNORMAL) Basic Metabolic Panel (02/17/2025 6:55 AM EDT) Glucose 90 65 - 99 mg/dL 02/17/2025 7:38 AM EDT [facility] BUN 8.0 6.0 - 20.0 mg/dL 02/17/2025 7:38 AM T [facility] Creatinine 1.29(H) 0.76 - 1.27 mg/dL 02/17/2025 7:38 AM EDT [facility] Sodium 141 136 - 145 mmol/L 02/17/2025 7:38 AM T [facility] Potassium 3.5 3.5 - 5.2 mmol/L 02/17/2025 7:38 AM EDT [facility] Chloride 104 98 - 107 mmol/L 02/17/2025 7:38 AM EDT [facility] CO2 27.5 22.0 - 29.0 mmol/L 02/17/2025 7:38 AM EDT [facility] Calcium 8.9 8.6 - 10.5 mg/dL 02/17/2025 7:38 AM [facility] BUN/Creatinine Ratio 6.2(L) 7.0 - 25.0 02/17/2025 7:38 AM T [facility] Anion Gap 9.5 5.0 - 15.0 mmol/L 02/17/2025 7:38 AM [facility] eGFR 64.7 >60.0 mL/min/1.7 3 02/17/2025 7:38 AM [facility] Blood Line / Unknown 02/17/2025 6: 55 AM EDT 02/17/2025 7:13 AM EDT [facility] - 02/17/2025 7:38 AM EDT [...] does not include race as a factor us Emir Morales MD LAB BLOOD ORDERABLES Final Resul t [facility]
[address] [id number], * LABS SCANNED (02/14/2025) Emir Morales MD LAB BLOOD ORDERABLES Final Resul t * STRESS TEST, REGADENOSON W MYOCARDIAL PERFUSION [...] during recovery: occasional PAC's, occasional PVC's. Test Insurance Clerk ECG [place] Constantin Armstrong MD CV STRESS ORDERABLES Final Result from Last 3 Months Insurance [employer] Care Teams Clinical Administrative Coordinator Relationship Specialty Start Date End Date Delmer Fritz MD [address] [phone] PCP - General Family Medicine 08/07/24
--- OUTSIDE RECORDS SUMMARY | 2025-03-14 14:27 | XMS_ITS | Encounter Summary ---
Author Organization Healthcare Address [address] [place] [address] Care Team Providers Care Fashion Marketer Name Role Phone Delmer Fritz MD Primary Care Provider [phone] Antwan Esparza MD Primary Care Provider [phone] Ángela Millard CONTRACT PREPARER Unavailable [phone] Inna Serrano APRN Primary Care Provider [phone] Encounter Details Date Type Department Care Team (Late st Contact Info) Description 09/01/2020 Orders Only External Location [address] [place] [address] Provider, External Social History Tobacco Use Types [...] Description 04/08/2025 12:00 PM EST Office Visit [facility] [address] [facility], [address] [place] [address] David Workman MD [address] [place] [address] 05/19/2025 1:00 PM EST Office Visit [facility] [address] [address] Leslie Suarez DO [address] [place] [address] 09/30/2025 10:10 AM EDT Appointment [facility] [address] [place] [address] 09/30/2025 11:30 AM EDT Office Visit [facility] [address] 2nd [place] [address] Aysha Crews MD [address] [place] [address] documented as of this encounter [...] on filedocumented in this encounter Care Teams Fashion Marketer Relationship Specialty Start Date End Date Delmer Fritz MD [address] [facility] [address] [place] [address] PCP - General 10/02/20 12/13/20 Antwan Esparza MD [address] [place] [address] PCP - General 12/14/20 02/18/24 Inna Serrano APRN [address] [place] [address] PCP - General 02/19/24 Ángela Millard APRN [address] [place] [address] Nurse Practitioner Neurosurgery 09/17/21 documented as of this encounter
--- NOTE | 2025-03-14 14:28 | CA_ITS ---
FINAL REPORT CLINICAL HISTORY: EDEMA FINDINGS: Multiple transverse and longitudinal scans were performed of the femoral popliteal deep venous system, with augmentation and compression maneuvers. Normal phasic flow was noted in the visualized deep venous system. No intraluminal increased echogenicity is noted to suggest thrombus. There is normal compression and augmentation of the venous structures. No abnormal venous collaterals are seen. IMPRESSION: No evidence of deep venous thrombosis of the bilateral lower extremities. Reviewed, Interpreted and Dictated by Shawn Galan MD Transcribed by Cinthia Chen Authenticated and [facility]
--- OUTSIDE RECORDS SUMMARY | 2025-03-14 14:28 | XMS_ITS | Encounter Summary ---
Author Organization [facility] Address [address] [place] [address] Care Team Providers Care Patent Leather Sorter Name Role Phone Ángela Millard ORGANIZATIONAL EFFECTIVENESS DIRECTOR Unavailable [phone] Inna Serrano ORGANIZATIONAL EFFECTIVENESS DIRECTOR Primary Care Provider [phone] Encounter Details Date Type Department Care Team (Late st Contact Info) Description 01/24/2025 Telephone [facility], [facility] Mineral Metabolism [address] [facility], [address] [place] [address] David Workman MD [address] [place] [address] Social History Tobacco Use Types [...] like call back Best contact number: Other: [phone] Optimal time of day to reach caller: ANYTIME Additional comments/information from caller: None Note: Please do not reply to this message. Follow-up communication and further actions as a result of this message need to be communicated with the patient directly, if the patient is not active onMyChart. If the patient is active on MyChart, they will receive notification of the communication/outcome via [employer]. documented in this encounter Plan of Treatment Upcoming Encounters Date Type Department Care Team (Late st Contact Info) Description 04/08/2025 12:00 PM EST Office Visit [facility] [address] [facility], [address] [place] [address] David Workman MD [address] [place] [address] 05/19/2025 1:00 PM EST Office Visit [facility] at [facility] [address] [place] [address] eLslie Suarez, [address] [place] [address] 09/30/2025 10:10 AM EDT Appointment [facility] Radiology [address] [place] [address] 09/30/2025 11:30 AM EDT Office Visit [facility] [address] 2nd [place] [address] Aysha Crews MD [address] [place] [address] documented as of this encounter Visit Diagnoses Not on filedocumented in this encounter Additional Health Concerns Assessment Noted Time A fall risk assessment has been complete d for the patient 01/08/2025 1:58 PM EDT A Body Mass Index follow-up plan has been documented for the patient 01/08/2025 3:33 PM EDT documented as of this encounter Care Teams Patent Leather Sorter Relationship Specialty Start Date End Date Inna Serrano APRN [address] [place] [address] PCP - General 02/19/24 Ángela Millard APRN [address] [place] [address] Nurse Practitioner Neurosurgery 09/17/21 documented as of this encounter
--- OUTSIDE RECORDS SUMMARY | 2025-03-14 14:28 | XMS_ITS | Encounter Summary ---
Author Organization Healthcare Address [address] [place] [address] Care Team Providers Care Supervisor Heavy Equipment Name Role Phone Ángela Millard BLUE PRINTS TRIMMER Unavailable [phone] Inna Serrano APRN Primary Care Provider [phone] Reason for Visit * Reason Onset Date Comments HCN Status Update Call #1 02/05/2025 Encounter Details Date Type Department Care Team (Late st Contact Info) Description 02/05/2025 Telephone [facility] [address] [facility] [place] [address] Leslie Suarez DO [address] [facility] [address] [place] [address] HCN Status Update Call #1 [...] of the initial request. Best contact number: [phone] (mobile) Optimal time of day to reach [...] will receive notification of the communication/outcome via [employer]. * Telephone Encounter - Germaine Hart - 02/05/2025 2:33 PM EDT Clinical Concern/Question Reason for Call: [facility] patient needing a return call to reschedule upcoming appt with [facility] Best contact number: [phone] (mobile) Optimal time of day to reach caller: ANYTIME Additional comments/information from caller: None Note: Please do not reply to this message. Follow-up communication and further actions as a result of this message need to be communicated with the patient directly, if the patient is not active onMyChart. If the patient is active on MyChart, they will receive notification of the communication/outcome via Myfacepagehart. documented in this encounter Plan of Treatment Upcoming Encounters Date Type Department Care Team (Late st Contact Info) Description 04/08/2025 12:00 PM EST Office Visit [facility] Nephrology, Bone & Mineral Metabolism [address] [facility], [address] [place] [address] David Workman MD [address] [place] [address] 05/19/2025 1:00 PM EST Office Visit [facility] [address] [address] Leslie Suarez DO [address] [place] [address] 09/30/2025 10:10 AM EDT Appointment [facility] [address] [place] [address] 09/30/2025 11:30 AM EDT Office Visit [facility] [address] [facility] 2nd [place] [address] Aysha Crews MD [address] [place] [address] documented as of this encounter Visit Diagnoses Not on filedocumented in this encounter Additional Health Concerns Assessment Noted Time A fall risk assessment has been complete d for the patient 01/08/2025 1:58 PM EDT A Body Mass Index follow-up plan has been documented for the patient 01/08/2025 3:33 PM EDT documented as of this encounter Care Teams Supervisor Heavy Equipment Relationship Specialty Start Date End Date Inna Serrano APRN [address] [place], [place] [id number] PCP - General 02/19/24 Ángela Millard APRN [address] [place] [address] Nurse Practitioner Neurosurgery 09/17/21 documented as of this encounter
--- OUTSIDE RECORDS SUMMARY | 2025-03-14 14:28 | XMS_ITS | Patient Health Record ---
Author Organization [facility] Address [address] [place] [address] Care Team Providers Care Paint Stockman Name Role Phone Chayo Morrison Primary Care [...] Problem Long-term current use of drug therapy (483897817) long term care pharmacist (current) drug therapy [facility] (Z79.899) Active confirmed Problem Cervical spondylosis without myelopathy (714546648) Spondylosis without myelopathy or radiculopathy, cervical region (M47.812) Active confirmed Problem Cervical disc disorder (287419280) Cervical disc disorder, unspecified, unspecified cervical region (M50.90) Active confirmed Problem Dysthymia (29658683) Dysthymia (F34.1) Active confirmed Problem Opioid abuse (1102057) Opioid use, 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) Active confirmed Encounters Encounter Location Date Provider Diagnosis [facility] [address] [place] [address] 04/27/2024 Provider Migration Plan Of Treatment Pending Test Test Name Order Date Urine Drug Testing 11/29/2021 Future Test Test Name Order Date PPM - Personalized Pain Management (9921 3) 11/29/2021 Insurance Providers Payer Name Payer Address Payer Phone Subscriber Number Group Number Insured Name Patient Relationship to Insured Coverage Start Date Coverage End Date [employer] [place] - [place] [address] [address] [place] [address] [id number] Luca Kauffman Self - patient is the insured 2 Medical (General) History Medical History History ICD Code COPD Arthritis Heartburn Hypertension Thyroid disease Surgical History Surgery Date(Month/Year) Shoulder Elbows 3 times Throat surgery Chest Lung Stomach Knees Hospitalization History Reason Date(Month/Year) Surgeries
--- OUTSIDE RECORDS SUMMARY | 2025-03-14 14:28 | XMS_ITS | Encounter Summary ---
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
--- OUTSIDE RECORDS SUMMARY | 2025-03-14 14:28 | XMS_ITS | Encounter Summary ---
Author Organization Healthcare Address [address] [place] [address] Care Team Providers Care Special Services Coordinator Name Role Phone Antwan Esparza MD Primary Care Provider [phone] Ángela Millard PHYSICAL MEDICINE TEACHER Unavailable [phone] Inna Serrano APRN Primary Care Provider [phone] Reason for Referral * Consultation (Routine) - Closed Specialty Diagnoses / Procedures Referred By Cortez johnson Referred To Contact Endocrinology Diagnoses Thyroid nodule Jose Mccracken MD [address] [facility] [address] [place] [address] Phone: tel: fax: [facility] Endocrinology [address] [place] [address] Phone: tel: fax: Referral ID Status Reason Start Date Expiration Date V isits Requested Visits Authorized [id number] Closed Specialty Services Required 08/01/2022 01/31/2024 1 1 Encounter Details Date Type Department Care Team (Late st Contact Info) Description 08/01/2022 Community [facility] [address] [place] [address] Jose Mccracken MD [address] [facility] [place] [address] Thyroid nodule (Primary Dx) Social [...] [address] [facility], [address] [place] [address] David Workman MD [address] [place] [address] 05/19/2025 1:00 PM EST Office Visit [facility] [address] [place] [address] Leslie Suarez DO [address] [place] [address] 09/30/2025 10:10 AM EDT Appointment [facility] Radiology [address] [place] [address] 09/30/2025 11:30 AM EDT Office Visit [facility] Head[facility] Neck & Respiratory [address] [facility], 2nd [place] [address] Aysha Crews MD [address] [facility] [address] [place] [address] Scheduled Referrals Name Type Priority Associated Diagnoses [...] documented as of this encounter Care Teams Special Services Coordinator Relationship Specialty Start Date End Date Antwan Esparza MD [address] [place] [address] PCP - General 12/14/20 02/18/24 Inna Serrano, PHYSICAL MEDICINE TEACHER [address] [place] [address] PCP - General 02/19/24 Ángela Millard, PHYSICAL MEDICINE TEACHER [address] [place] [address] Nurse Practitioner Neurosurgery 09/17/21 documented as of this encounter
--- OUTSIDE RECORDS SUMMARY | 2025-03-14 14:28 | XMS_ITS | Encounter Summary ---
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 documented in this encounter Plan of Treatment Not on file documented as of this encounter Visit Diagnoses Not on filedocumented in this encounter Care Teams Vallez Filter Operator Relationship Specialty Start Date End Date Delmer Fritz MD [address] [place] [address] PCP - General Family Medicine 08/07/24 documented as of this encounter
--- OUTSIDE RECORDS SUMMARY | 2025-03-14 14:28 | XMS_ITS | Encounter Summary ---
Author Organization [facility] Address [address] [place] [address] Care Team Providers Care Metal Work Duct Installer Name Role Phone Ángela Millard APPAREL PATTERN MAKER Unavailable [phone] Inna Serrano APRN Primary Care Provider [phone] Reason for Visit * Reason Onset Date Comments Med Refill 02/10/2025 Encounter Details Date Type Department Care Team (Late st Contact Info) Description 02/10/2025 Refill [facility] at [facility] [address] [facility] [place] [address] Dee Dee Jenkins MD [address] [facility] [address] [place] [address] Social History Tobacco Use Types [...] Description 04/08/2025 12:00 PM EST Office Visit [facility] Nephrology, Bone & Mineral Metabolism [address] [facility], [address] [place] [address] David Workman MD [address] [place] [address] 05/19/2025 1:00 PM EST Office Visit [facility] [address] [place] [address] Leslie Suarez DO [address] [place] [address] 09/30/2025 10:10 AM EDT Appointment [facility] Radiology [address] [place] [address] 09/30/2025 11:30 AM EDT Office Visit [facility] Head[facility] Neck & Respiratory [address] [facility], 2nd [place] [address] Aysha Crews MD [address] [facility] [address] [place] [address] documented as of this encounter Visit Diagnoses Not on filedocumented in this encounter Additional Health Concerns Assessment Noted Time A fall risk assessment has been complete d for the patient 01/08/2025 1:58 PM EDT A Body Mass Index follow-up plan has been documented for the patient 01/08/2025 3:33 PM EDT documented as of this encounter Care Teams Metal Work Duct Installer Relationship Specialty Start Date End Date Inna Serrano APRN [address] [place], [place] [address] PCP - General 02/19/24 Ángela Millard APRN [address] [place] [address] Nurse Practitioner Neurosurgery 09/17/21 documented as of this encounter
--- OUTSIDE RECORDS SUMMARY | 2025-03-14 14:28 | XMS_ITS | Encounter Summary ---
Author Organization Healthcare Address [address] [place] [address] Care Team Providers Care Automobile Sales Representative Name Role Phone Antwan Esparza MD Primary Care Provider [phone] Ángela Millard CLASS 1 OWNER OPERATOR Unavailable [phone] Inna Serrano APRN Primary Care Provider [phone] Encounter Details Date Type Department Care Team (Late Contact Info) Description 10/06/2023 Orders Only External Location [address] [place] [address] Provider, External Social History Tobacco Use Types [...] Department Care Team (Late Contact Info) Description 04/08/2025 12:00 PM EST Office Visit [facility] Nephrology, Bone & Mineral Metabolism [address] [facility], [address] [place] [address] David Workman MD [address] [place] [address] 05/19/2025 1:00 PM EST Office Visit [facility] [address] [place] [address] Leslie Suarez, [address] [place] [address] 09/30/2025 10:10 AM EDT Appointment [facility] Radiology [address] [place] [address] 09/30/2025 11:30 AM EDT Office Visit [facility] Head[facility] Neck [facility] Respiratory [address], 2nd [place] [address] Aysha Crews MD [address] [place] [address] documented as of this encounter [...] documented as of this encounter Care Teams Automobile Sales Representative Relationship Specialty Start Date End Date Antwan Esparza MD [address] [place] [address] PCP - General 12/14/20 02/18/24 Inna Serrano APRN [address] [place] [address] PCP - General 02/19/24 Ángela Millard APRN [address] [facility] [place] [address] Nurse Practitioner Neurosurgery 09/17/21 documented as of this encounter
--- OUTSIDE RECORDS SUMMARY | 2025-03-14 14:28 | XMS_ITS | Encounter Summary ---
Author Organization Healthcare Address [address] [place] [address] Care Team Providers Care Marine Plumber Name Role Phone Ángela Millard ELECTROPLATER AUTOMATIC Unavailable [phone] Inna Serrano APRN Primary Care Provider [phone] Reason for Visit * Reason Onset Date Comments HCN Status Update Call #2 01/08/2025 Encounter Details Date Type Department Care Team (Late st Contact Info) Description 01/08/2025 Telephone Physical Medicine [facility] Rehabilitation [facility] at [facility] [address] [facility] [place] [address] Leslie Suarez DO [address] [facility] [address] [place] [address] HCN Status Update Call #2 [...] of the initial request. Best contact number: [phone] (mobile) Optimal time of day to reach [...] will receive notification of the communication/outcome via Aniboomt. * Telephone Encounter - Malena Edmond - 01/09/2025 9:07 AM EDT Status Update Call #1 1st call regarding the status of the initial request. Best contact number: [phone] (mobile) Optimal time of day to reach [...] that the provider requested. Best contact number: [phone] (mobile) Optimal time of day to reach [...] 12:00 PM EST [facility], Bone & Min[place] Metabolism [address] [facility], [address] [place] [address] David Workman MD [address] [place] [address] 05/19/2025 1:00 PM EST Office Visit [facility] at [facility] [address] [place] [address] Leslie Suarez DO [address] [place] [address] 09/30/2025 10:10 AM EDT Appointment [facility] Radiology [address] [place] [address] 09/30/2025 11:30 AM EDT Office Visit [facility] Head[facility] Neck & Respiratory 800 [facility], 2nd [place] [address] Aysha Crews MD [address] [place] [address] documented as of this encounter Visit Diagnoses Not on filedocumented in this encounter Additional Health Concerns Assessment Noted Time A fall risk assessment has been complete d for the patient 01/08/2025 1:58 PM EDT A Body Mass Index follow-up plan has been documented for the patient 01/08/2025 3:33 PM EDT documented as of this encounter Care Teams Marine Plumber Relationship Specialty Start Date End Date Inna Serrano APRN [address] [place], [place] [address] PCP - General 02/19/24 Ángela Millard APRN [address] [place] [address] Nurse Practitioner Neurosurgery 09/17/21 documented as of this encounter
--- OUTSIDE RECORDS SUMMARY | 2025-03-14 14:28 | XMS_ITS | Encounter Summary ---
Author Organization Healthcare Address [address] [place] [address] Care Team Providers Care Java Lead Architect Name Role Phone Antwan Esparza MD Primary Care Provider [phone] Ángela Millard BARREL COOPER Unavailable [phone] Inna Serrano APRN Primary Care Provider [phone] Encounter Details Date Type Department Care Team (Late st Contact Info) Description 12/20/2023 Orders Only External Location [address] [place] [address] Provider, External Social History Tobacco Use Types [...] Upcoming Encounters Date Type Department Care Team ([facility] st Contact Info) Description 04/08/2025 12:00 PM EST Office Visit [facility] Nephrology, Bone & Mineral Metabolism [address] [facility], [address] [place] [address] David Workman MD [address] [place] [address] 05/19/2025 1:00 PM EST Office Visit [facility] Rehabilitation [facility] at [facility] [address] [place] [address] Leslie Suarez DO [address] [place] [address] 09/30/2025 10:10 AM EDT Appointment [facility] Radiology [address] [place] [address] 09/30/2025 11:30 AM EDT Office Visit [facility] Head, Neck & Respiratory [address] [facility], 2nd [place] [address] Aysha Crews MD [address] [facility] [address] [place] [address] documented as of this encounter [...] as of this encounter Care Teams Java Lead Architect Relationship Specialty Start Date End Date Antwan Esparza MD [address] [place] [address] PCP - General 12/14/20 02/18/24 Inna Serrano APRN [address] [place] [address] PCP - General 02/19/24 Ángela Millard APRN [address] [place] [address] Nurse Practitioner Neurosurgery 09/17/21 documented as of this encounter
--- OUTSIDE RECORDS SUMMARY | 2025-03-14 14:28 | XMS_ITS | Encounter Summary ---
Author Organization [facility] Address [address] [place] [address] Care Team Providers Care Lead Housekeeper Name Role Phone Ángela Millard FINISHED HARDWARE ERECTOR Unavailable Inna Serrano FINISHED HARDWARE ERECTOR Primary Care Provider [phone] Encounter Details Date Type Department Care Team ([facility] st Contact Info) Description 02/11/2025 Telephone [facility] Nephrology, Bone & Mineral Metabolism [address] [facility], [address] [place] [address] Mandie Olsen, PharmD [address] [place] [address] Social History Tobacco Use Types [...] follow up on BP. Patient reports his director intelligence analysis programs told him to stop monitoring BP until he has heart cath. He reports he is not scheduled yet at this time, but they are working to get him scheduled. Will continue to follow up. Mandie Olsen PharmD, BCACP Clinical Pharmacist Nephrology, [facility] & [facility] Metabolism Clinic [address] [place] [address] documented in this encounter Plan of Treatment Upcoming Encounters Date Type Department Care Team (Late st Contact Info) Description 04/08/2025 12:00 PM EST Office Visit [facility] Nephrology, Bone & Mineral Metabolism [address] [facility], [address] [place] [address] David Workman MD [address] [place] [address] 05/19/2025 1:00 PM EST Office Visit [facility] Medicine [facility] at [facility] [address] [place] [address] Leslie Suarez DO [address] [facility] [address] [place] [address] 09/30/2025 10:10 AM EDT Appointment [facility] Radiology [address] [place] [address] 09/30/2025 11:30 AM EDT Office Visit [facility] Head[facility] Neck & Respiratory [address] [facility], 2nd [place] [address] Aysha Crews MD [address] [facility] [address] [place] [address] documented as of this encounter Visit Diagnoses Not on filedocumented in this encounter Additional Health Concerns Assessment Noted Time A fall risk assessment has been complete d for the patient 01/08/2025 1:58 PM EDT A Body Mass Index follow-up plan has been documented for the patient 01/08/2025 3:33 PM EDT documented as of this encounter Care Teams Lead Housekeeper Relationship Specialty Start Date End Date Inna Serrano APRN [address] [place] [address] PCP - General 02/19/24 Ángela Millard APRN [address] [place] [address] Nurse Practitioner Neurosurgery 09/17/21 documented as of this encounter
--- OUTSIDE RECORDS SUMMARY | 2025-03-14 14:28 | XMS_ITS | Encounter Summary ---
Author Organization Healthcare Address [address] [place] [address] Care Team Providers Care Precision Lens Centerer And Edger Name Role Phone Antwan Esparza MD Primary Care Provider [phone] Ángela Millard MINERAL ENGINEER Unavailable [phone] Inna Serrano APRN Primary Care Provider + [phone] Encounter Details Date Type Department Care Team (Late Contact Info) Description 10/06/2023 Orders Only External Location [address] [place] [address] Provider, External Social History Tobacco Use Types [...] Bone & Mineral Metabolism [address] [facility], [address] [place] [address] David Workman MD [address] [place] [address] 05/19/2025 1:00 PM EST Office Visit [facility] [address] [place] [address] Leslie Suarez, [address] [place] [address] 09/30/2025 10:10 AM EDT Appointment [facility] Radiology [address] [place] [address] 09/30/2025 11:30 AM EDT Office Visit [facility] Head[facility] Neck & Respiratory [address], 2nd [place] [address] Aysha Crews MD [address] [facility] [address] [place] [address] documented as of this encounter [...] documented as of this encounter Care Teams Precision Lens Centerer And Edger Relationship Specialty Start Date End Date Antwan Esparza MD 9 [place] [address] PCP - General 12/14/20 02/18/24 Inna Serrano APRN [address]0 [place] [address] PCP - General 02/19/24 Ángela Millard APRN [address] [facility]01 [place] [address] Nurse Practitioner Neurosurgery 09/17/21 documented as of this encounter
--- OUTSIDE RECORDS SUMMARY | 2025-03-14 14:28 | XMS_ITS | Encounter Summary ---
Author Organization [facility] Address [address] [place] [address] Care Team Providers Care Generation Engineer Name Role Phone Ángela Millard NOVELTY BALLOON ASSEMBLER AND PACKER Unavailable [phone] Inna Serrano APRN Primary Care Provider [phone] Reason for Visit * Reason Onset Date Comments HCN Clinical Concern/Question 01/22/2025 Encounter Details Date Type Department Care Team ([facility] st Contact Info) Description 01/22/2025 Telephone [facility] Nephrology, Bone & Mineral Metabolism [address] [facility], [address] [place] [address] David Workman MD [address] [place] [address] HCN Clinical Concern/Question Social History [...] he had a renal ultrasound done at [facility] on 01/21 and wants to make sure Dr. Workman gets the results. Best contact number: [phone] (home) Optimal time of day to reach caller: ANYTIME Additional comments/information from caller: None Note: Please do not reply to this message. Follow-up communication and further actions as a result of this message need to be communicated with the patient directly, if the patient is not active onMyChart. If the patient is active on MyChart, they will receive notification of the communication/outcome via Critical Links. documented in this encounter Plan of Treatment Upcoming Encounters Date Type Department Care Team (Late st Contact Info) Description 04/08/2025 12:00 PM EST Office Visit [facility] Nephrology, Bone & Mineral Metabolism [address] [facility], [address] [place] [address] David Workman MD [address] [place] [address] 05/19/2025 1:00 PM EST Office Visit [facility] [address] [place] [address] Leslie Suarez DO [address] [facility] [address] [place] [address] 09/30/2025 10:10 AM EDT Appointment [facility] G Radiology [address] [place] [address] 09/30/2025 11:30 AM EDT Office Visit [facility] Head, Neck & Respiratory [address] , 2nd [place] [address] Aysha Crews MD [address] [facility] [address] [place] [address] documented as of this encounter Visit Diagnoses Not on filedocumented in this encounter Additional Health Concerns Assessment Noted Time A fall risk assessment has been complete d for the patient 01/08/2025 1:58 PM EDT A Body Mass Index follow-up plan has been documented for the patient 01/08/2025 3:33 PM EDT documented as of this encounter Care Teams Generation Engineer Relationship Specialty Start Date End Date Inna Serrano APRN [address] [place] [address] PCP - General 02/19/24 Ángela Millard APRN [address] [place] [address] Nurse Practitioner Neurosurgery 09/17/21 documented as of this encounter
--- OUTSIDE RECORDS SUMMARY | 2025-03-14 14:28 | XMS_ITS | Encounter Summary ---
Author Organization [facility] Address [address] [place] [address] Care Team Providers Care Fringing Machine Operator Name Role Phone Ángela Millard Ev FLIGHT ATTENDANT/INFLIGHT MANAGER Unavailable [phone] Inna Serrano APRN Primary Care Provider [phone] Reason for Visit * Reason Onset Date Comments HCN - Patient Message 01/09/2025 Encounter Details Date Type Department Care Team ([facility] st Contact Info) Description 01/09/2025 Telephone [facility] Nephrology, Bone & Mineral Metabolism [address] [facility], [address] [place] [address] David Workman MD [address] [place] [address] HCN - Patient Message Social History [...] Renal ultrasound order faxed to [facility] [phone] * Telephone Encounter - Celina Arce - 01/10/2025 11:22 AM EDT Secure chat sent to the provider, Dr. Workman * Telephone Encounter - Neyda Guzman - 01/10/2025 8:04 AM EDT Status Update Call #1 1st call regarding the status of the initial request. Best contact number: [phone] (mobile) Optimal time of day to reach [...] will receive notification of the communication/outcome via [email or web address]. * Telephone Encounter - Radha Cruz LPN [...] optimal time of day to reach caller: [phone] Note: Please do not reply to this [...] Upcoming Encounters Date Type Department Care Team ([facility] st Contact Info) Description 04/08/2025 12:00 PM EST Office Visit [facility] Nephrology, Bone & Mineral Metabolism [address] [facility], [address] [place] [address] David Workman MD [address] [place] [address] 05/19/2025 1:00 PM EST Office Visit [facility] [address] [place] [address] Leslie Suarez DO [address] [place] [address] 09/30/2025 10:10 AM EDT Appointment [facility] G Radiology [address] [place] [address] 09/30/2025 11:30 AM EDT Office Visit [facility] Head, Neck & Respiratory [address] [facility], 2nd [place] [address] Aysha Crews MD [address] [facility] [address] [place] [address] documented as of this encounter Visit Diagnoses Not on filedocumented in this encounter Additional Health Concerns Assessment Noted Time A fall risk assessment has been complete d for the patient 01/08/2025 1:58 PM EDT A Body Mass Index follow-up plan has been documented for the patient 01/08/2025 3:33 PM EDT documented as of this encounter Care Teams Fringing Machine Operator Relationship Specialty Start Date End Date Inna Serrano APRN [address] [place] [address] PCP - General 02/19/24 Ángela Millard, FLIGHT ATTENDANT/INFLIGHT MANAGER [address] [place] [address] Nurse Practitioner Neurosurgery 09/17/21 documented as of this encounter
--- OUTSIDE RECORDS SUMMARY | 2025-03-14 14:28 | XMS_ITS | Encounter Summary ---
Author Organization Healthcare Address [address] [place] [id number] Care Team Providers Care Physician Gynecologist Name Role Phone Ángela Millard RUBBER FLAP CUTTER Unavailable [phone] Inna Serrano RUBBER FLAP CUTTER Primary Care Provider [phone] Encounter Details Date Type Department Care Team (Late st Contact Info) Description 02/03/2025 Telephone [facility] [address], [address]nd [place] [address] Aysha Crews MD [address] [place] [address] Social History Tobacco Use Types [...] 9:50 AM EDT Per pt call to [facility], pt had imaging done at [facility] and sent thhe reports for those images but not the images themselves. Pt calling to update us that they are now working on sending the actual images and to be on the lookout for those. [phone] * Telephone Encounter - Sheryl Keyes - 02/03/2025 1:27 PM EDT Patient recently had a stress test and a scan of his heart at [facility] in [place], [place]. Pt wanted to make Dr. Crews [...] 04/08/2025 12:00 PM EST Office Visit [facility] Nephrology, Bone & Mineral Metabolism [address], [address] [place] [address] David Workman MD [address] [place] [address] 05/19/2025 1:00 PM EST Office Visit [facility] at [facility] [address] [place] [address] Leslie Suarez DO [address] [place] [address] 09/30/2025 10:10 AM EDT Appointment [facility] Radiology [address] [place] [address] 09/30/2025 11:30 AM EDT Office Visit [facility]ck [facility] Respiratory [address], 2nd [place] [address] Aysha Crews MD [address] [place] [address] documented as of this encounter Visit Diagnoses Not on filedocumented in this encounter Additional Health Concerns Assessment Noted Time A fall risk assessment has been complete d for the patient 01/08/2025 1:58 PM EDT A Body Mass Index follow-up plan has been documented for the patient 01/08/2025 3:33 PM EDT documented as of this encounter Care Teams Physician Gynecologist Relationship Specialty Start Date End Date Inna Serrano APRN [address] [place] [address] PCP - General 02/19/24 Ángela Millard APRN [address] [place] [address] Nurse Practitioner Neurosurgery 09/17/21 documented as of this encounter
--- OUTSIDE RECORDS SUMMARY | 2025-03-14 14:28 | XMS_ITS | Encounter Summary ---
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 Added to scan zoëe. Can not find mention of IV Benadryl. [...] swelling, respiratory distress. blows up like a Pyrites blimp . Has had a cardiac cath previously years and years ago [facility]- said they gave him IV Benadryl before and after his procedure and kept overnight for monitoring. Says this plan worked well. Made Dr. Morales aware. Also faxed request to [facility] for cath and med records to confirm medicine regimen used at that time. documented in this encounter Plan of Treatment Not on file documented as of this encounter Visit Diagnoses Not on filedocumented in this encounter Care Teams Lsw Relationship Specialty Start Date End Date Delmer Fritz MD [address] [place] [address] PCP - General Family Medicine 08/07/24 documented as of this encounter
--- OUTSIDE RECORDS SUMMARY | 2025-03-14 14:28 | XMS_ITS | Encounter Summary ---
Author Organization [facility] Address [address] [place] [address] Care Team Providers Care Correctional Medicine Physician Name Role Phone Ángela Millard Ev DREDGE HAND Unavailable [phone] Inna Serrano APRN Primary Care Provider [phone] Reason for Visit * Reason Onset Date Comments HCN - Patient Message 02/03/2025 Encounter Details Date Type Department Care Team ([facility] st Contact Info) Description 02/03/2025 Telephone [facility]rology, Bone & Mineral Metabolism [address], [address] [place] [address] David Workman MD [address] [place] [address] HCN - Patient Message Social History [...] to be having a heart surgery at [facility]. Best contact number: [phone] (mobile) Optimal time of day to reach [...] of the initial request. Best contact number: [phone] (home) Optimal time of day to reach caller: ANYTIME Additional comments/information from caller: Pt called to let Dr Workman know that [facility] is sending the imaging as well. [...] had a nuclear heart scan done at [facility] last Monday and would like to know if Dr. Workman would like a copy of those test results. Best contact number: [phone] (mobile) Optimal time of day to reach [...] Description 04/08/2025 12:00 PM EST Office Visit [facility] Nephrology, Bone & Mineral Metabolism [address], [address] [place] [address] David Workman MD [address] [place] [address] 05/19/2025 1:00 PM EST Office Visit Physical Medicine & Rehabilitation Clinic at [facility] [address] [place] [address] Leslie Suarez DO [address] [facility] [address] [place] [address] 09/30/2025 10:10 AM EDT Appointment [facility] Radiology [address] [place] [address] 09/30/2025 11:30 AM EDT Office Visit [facility] Head[facility] Neck & Respiratory [address] [facility], 2nd [place] [address] Aysha Crews MD [address] [facility] [address] [place] [address] documented as of this encounter Visit Diagnoses Not on filedocumented in this encounter Additional Health Concerns Assessment Noted Time A fall risk assessment has been complete d for the patient 01/08/2025 1:58 PM EDT A Body Mass Index follow-up plan has been documented for the patient 01/08/2025 3:33 PM EDT documented as of this encounter Care Teams Correctional Medicine Physician Relationship Specialty Start Date End Date Inna Serrano APRN [address] [place] [address] PCP - General 02/19/24 Ángela Millard APRN [address] [place] [address] Nurse Practitioner Neurosurgery 09/17/21 documented as of this encounter
--- OUTSIDE RECORDS SUMMARY | 2025-03-14 14:28 | XMS_ITS | Encounter Summary ---
Author Organization [facility] Address [address] [place] [address] Care Team Providers Care Kaiako Kura Tuarua Name Role Phone Ángela Millard NEWS VIDEOGRAPHER Unavailable [phone] Inna Serrano APRN Primary Care Provider [phone] Reason for Visit * Reason Onset Date Comments HCN - Patient Message 02/03/2025 Encounter Details Date Type Department Care Team (Late st Contact Info) Description 02/03/2025 Telephone Physical Medicine & Rehabilitation Clinic at [facility] [address] [facility] [place] [address] Leslie Suarez DO [address] [facility] [address] [place] [address] HCN - Patient Message Social [...] failure. He said his records are at [facility]. Patient wants Dr. Morrison to know. Best contact number: [phone] (mobile) Optimal time of day to reach [...] 04/08/2025 12:00 PM EST Office Visit [facility] Nephrology, Bone & Mineral Metabolism [address] [facility], [address] [place] [address] David Workman MD [address] [place] [address] 05/19/2025 1:00 PM EST Office Visit [facility] at [facility] [address] [place] [address] Leslie Suarez DO [address] [place] [address] 09/30/2025 10:10 AM EDT Appointment [facility] Radiology [address] [place] [address] 09/30/2025 11:30 AM EDT Office Visit [facility] Head[facility] Neck & Respiratory [address] [facility], 2nd [place] [address] Aysha Crews MD [address] [facility] [address] [place] [address] documented as of this encounter Visit Diagnoses Not on filedocumented in this encounter Additional Health Concerns Assessment Noted Time A fall risk assessment has been complete d for the patient 01/08/2025 1:58 PM EDT A Body Mass Index follow-up plan has been documented for the patient 01/08/2025 3:33 PM EDT documented as of this encounter Care Teams Kaiako Kura Tuarua Relationship Specialty Start Date End Date Inna Serrano APRN [address] [place] [address] PCP - General 02/19/24 Ángela Millard APRN [address] [place] [address] Nurse Practitioner Neurosurgery 09/17/21 documented as of this encounter
--- OUTSIDE RECORDS SUMMARY | 2025-03-14 14:28 | XMS_ITS | Encounter Summary ---
Author Organization [facility] Address [address] [place] [address] Care Team Providers Care Advisor To Command In Combat Name Role Phone Ángela Millard MOLDED RUBBER GOODS CUTTER Unavailable [phone] Inna Serrano APRN Primary Care Provider [phone] Reason for Visit * Reason Onset Date Comments HCN - Patient Message 12/19/2024 Encounter Details Date Type Department Care Team (Late st Contact Info) Description 12/19/2024 Telephone Physical Medicine & Rehabilitation Clinic at [facility] [address] [facility] [place] [address] Leslie Suarez DO [address] [facility] [address] [place] [address] HCN - Patient Message Social [...] the new appt date/time. Best contact number: [phone] (mobile) Optimal time of day to reach caller: ANYTIME Additional comments/information from caller: None. Note: Please do not reply to this message. Follow-up communication and further actions as a result of this message need to be communicated with the patient directly, if the patient is not active onMyChart. If the patient is active on MyChart, they will receive notification of the communication/outcome via GoSporty. * Telephone Encounter - Poly Squires - [...] staff re: urinalysis order. Best contact number: [phone] (mobile) Optimal time of day to reach [...] Description 04/08/2025 12:00 PM EST Office Visit [facility] Nephrology, Bone & Mineral Metabolism [address] [facility], [address] [place] [address] David Workman MD [address] [place] [address] 05/19/2025 1:00 PM EST Office Visit [facility] at [facility] [address] [place] [address] Leslie Suarez DO [address] [place] [address] 09/30/2025 10:10 AM EDT Appointment [facility] Radiology [address] [place] [address] 09/30/2025 11:30 AM EDT Office Visit [facility] Head, Neck & Respiratory [address] [facility], 2nd [place] [address] Aysha Crews MD [address] [place] [address] documented as of this encounter Visit Diagnoses Not on filedocumented in this encounter Additional Health Concerns Assessment Noted Time A fall risk assessment has been complete d for the patient 11/11/2024 1:29 PM EDT A Body Mass Index follow-up plan has been documented for the patient 11/11/2024 5:31 PM EDT documented as of this encounter Care Teams Advisor To Command In Combat Relationship Specialty Start Date End Date Inna Serrano APRN [address] [place] [address] PCP - General 02/19/24 nÁgela Millard APRN [address] [place] [address] Nurse Practitioner Neurosurgery 09/17/21 documented as of this encounter
--- OUTSIDE RECORDS SUMMARY | 2025-03-14 14:28 | XMS_ITS | Encounter Summary ---
Author Organization [facility] Address [address] [place] [address] Care Team Providers Care Hide Cleaner Name Role Phone Ángela Millard PRICK STITCHER Unavailable [phone] Inna Serrano APRN Primary Care Provider [phone] Encounter Details Date Type Department Care Team (Late st Contact Info) Description 01/27/2025 Telephone [facility] Nephrology, Bone & Mineral Metabolism [address] [facility], [address] [place] [address] David Workman MD [address] [place] [address] Social History Tobacco Use Types [...] Questionnaire-2 Score 0 02/20/2025 2:45 PM EDT Arbne Gonzales LPN * Calculated C-SSRS Risk Score [...] Notes * Telephone Encounter - Nanette Sandra Terrence - 01/27/2025 9:35 AM EDT Clinical Concern/Question Reason for Call: Pt's ticket marker took him off Carvedilol and prescribed Bumetanide instead. Pt said that his ticket marker is going to do labs in 1 week and evaluate whether the fluid retention has decreased. Pt said he will be admitted to the hospital if he has not improved. Best contact number: [phone] (home) Optimal time of day to reach [...] will receive notification of the communication/outcome via Webcomhart. documented in this encounter Plan of Treatment Upcoming Encounters Date Type Department Care Team (Late st Contact Info) Description 04/08/2025 12:00 PM EST Office Visit [facility] Nephrology, Bone & Mineral Metabolism [address] [facility], [address] [place] [address] David Workman MD [address] [place] [address] 05/19/2025 1:00 PM EST Office Visit [facility] [address] [place] [address] Leslie Suarez DO [address] [facility] [address] [place] [address] 09/30/2025 10:10 AM EDT Appointment [facility] Radiology [address] [place] [address] 09/30/2025 11:30 AM EDT Office Visit [facility] Head[facility] Neck & Respiratory [address] [facility], 2nd [place] [address] Aysha Crews MD [address] [facility] [address] [place] [address] documented as of this encounter [...] Date End Date Inna Serrano APRN [address] [place] [address] PCP - General 02/19/24 Ángela Millard APRN [address] [address] Nurse Practitioner Neurosurgery 09/17/21 documented as of this encounter
--- OUTSIDE RECORDS SUMMARY | 2025-03-14 14:28 | XMS_ITS | Encounter Summary ---
Author Organization [facility] Address [address] [address] Care Team Providers Care Adzing And Boring Machine Feeder Name Role Phone Ángela Millard CHASSIS INSPECTOR Unavailable [phone] Inna Serrano APRN Primary Care Provider [phone] Reason for Visit * Reason Onset Date Comments HCN Clinical Concern/Question 12/23/2024 Encounter Details Date Type Department Care Team ([facility] st Contact Info) Description 12/23/2024 Telephone [facility] Nephrology, Bone & Mineral Metabolism [address] [facility], [address] [place] [address] Greta Elliott MD [address] [place] [id number] HCN Clinical Concern/Question Social History Tobacco Use [...] only a male provider. Best contact number: [phone] (home) Optimal time of day to reach caller: ANYTIME Additional comments/information from caller: None Note: Please do not reply to this message. Follow-up communication and further actions as a result of this message need to be communicated with the patient directly, if the patient is not active onMyChart. If the patient is active on MyChart, they will receive notification of the communication/outcome via Linkytt. documented in this encounter Plan of Treatment Upcoming Encounters Date Type Department Care Team (Late st Contact Info) Description 04/08/2025 12:00 PM EST Office Visit [facility] Nephrology, Bone & Mineral Metabolism [address] [facility], [address] [place] [address] David Workman MD [address] [place] [address] 05/19/2025 1:00 PM EST Office Visit [facility] at [facility] [address] [address] Leslie Suarez DO [address] [place] [address] 09/30/2025 10:10 AM EDT Appointment [facility] Radiology [address] [place] [address] 09/30/2025 11:30 AM EDT Office Visit [facility] Head[facility] Neck & Respiratory [address] [facility], 2nd [place] [address] Aysha Crews MD [address] [place] [address] documented as of this encounter Visit Diagnoses Not on filedocumented in this encounter Additional Health Concerns Assessment Noted Time A fall risk assessment has been complete d for the patient 11/11/2024 1:29 PM EDT A Body Mass Index follow-up plan has been documented for the patient 11/11/2024 5:31 PM EDT documented as of this encounter Care Teams Adzing And Boring Machine Feeder Relationship Specialty Start Date End Date Inna Serrano APRN [address] [place] [address] PCP - General 02/19/24 Ángela Millard APRN [address] [place] [address] Nurse Practitioner Neurosurgery 09/17/21 documented as of this encounter
--- OUTSIDE RECORDS SUMMARY | 2025-03-14 14:29 | XMS_ITS | Encounter Summary ---
Author Organization [facility] Address [address] [place] [address] Care Team Providers Care Sexual Assault Social Worker Name Role Phone Ángela Millard Ev TOP POLISHER Unavailable [phone] Inna Serrano APRN Primary Care Provider [phone] Reason for Visit * Reason Onset Date Comments HCN - Patient Message 01/14/2025 Encounter Details Date Type Department Care Team ([facility] st Contact Info) Description 01/14/2025 Telephone [facility] Nephrology, Bone & Mineral Metabolism [address] [facility], [address] [place] [address] David Workman MD [address] [place] [address] HCN - Patient Message Social History [...] not required Renal ultrasound order faxed to [facility] Scheduling [phone] * Telephone Encounter - Celina Arce - 01/14/2025 12:19 PM EDT Confirmed with facility that order was received, stated they need prior auth. Auth team notified * Telephone Encounter - Claudia Griffin - 01/14/2025 12:11 PM EDT Patient Phone Message Reason for Call: Pt says [facility] does not have his renal US order. He is asking for the status of the referral. Best contact number and optimal time of day to reach caller: [phone] Note: Please do not reply to this message. Follow-up communication and further actions as a result of this message need to be communicated with the patient directly, if the patient is not active onMyChart. If the patient is active on MyChart, they will receive notification of the communication/outcome via [employer] BioSc[employer]. documented in this encounter Plan of Treatment Upcoming Encounters Date Type Department Care Team (Late st Contact Info) Description 04/08/2025 12:00 PM EST Office Visit [facility] Nephrology, Bone & Mineral Metabolism [address] [facility], [address] [place] [address] David Workman MD [address] [place] [address] 05/19/2025 1:00 PM EST Office Visit Physical Medicine & Rehabilitation Clinic at [facility] [address] [place] [address] Leslie Suarez DO [address] [place] [address] 09/30/2025 10:10 AM EDT Appointment [facility] Radiology [address] [place] [address] 09/30/2025 11:30 AM EDT Office Visit [facility] Res[facility] [address] 2[address] [place] [address] Aysha Crews MD [address] [place] [address] documented as of this encounter Visit Diagnoses Not on filedocumented in this encounter Additional Health Concerns Assessment Noted Time A fall risk assessment has been complete d for the patient 01/08/2025 1:58 PM EDT A Body Mass Index follow-up plan has been documented for the patient 01/08/2025 3:33 PM EDT documented as of this encounter Care Teams Sexual Assault Social Worker Relationship Specialty Start Date End Date Inna Serrano, BELINDA [address] [place] [address] PCP - General 02/19/24 Ángela Millard, BELINDA [address] [place] [address] Nurse Practitioner Neurosurgery 09/17/21 documented as of this encounter
--- OUTSIDE RECORDS SUMMARY | 2025-03-14 14:29 | XMS_ITS | Encounter Summary ---
Author Organization Healthcare Address [address] [place] [address] Care Team Providers Care Shipping Technician Name Role Phone Delmer Fritz MD Primary Care Provider [phone] Antwan Esparza MD Primary Care Provider [phone] Ágnela Millard MATHEMATICS IMPROVEMENT TEACHER Unavailable [phone] Inna Serrano APRN Primary Care Provider [phone] Encounter Details Date Type Department Care Team (Late st Contact Info) Description 07/20/2012 Orders Only External Location [address] [place] [address] Vin Ji MD [address] [address] Social History Tobacco Use Types Packs/Day [...] Description 04/08/2025 12:00 PM EST Office Visit [facility] Nephrology, Bone & Mineral Metabolism [address] [facility], [address] [place] [address] David Workman MD [address] [place] [address] 05/19/2025 1:00 PM EST Office Visit Physical Medicine & Rehabilitation Clinic at [facility] [address] [place] [address] Leslie Suarez, [address] [place] [address] 09/30/2025 10:10 AM EDT Appointment [facility] Radiology [address] [place] [address] 09/30/2025 11:30 AM EDT Office Visit [facility] Res[facility] [address], 2nd [place] [address] Aysha Crews MD [address] [place] [address] documented as of this [...] on filedocumented in this encounter Care Teams Shipping Technician Relationship Specialty Start Date End Date Delmer Fritz MD [address] [facility] [address] [place] [address] PCP - General 10/02/20 12/13/20 Antwan Esparza MD [address] [place] [address] PCP - General 12/14/20 02/18/24 Inna Serrano APRN [address] [place] [address] PCP - General 02/19/24 Ángela Millard APRN [address] [place] [address] Nurse Practitioner Neurosurgery 09/17/21 documented as of this encounter
--- OUTSIDE RECORDS SUMMARY | 2025-03-14 14:29 | XMS_ITS | Encounter Summary ---
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 Staff reviewed chart and patient has qualifying diagnosis for Phase II Cardiac Rehab. Cardiac Rehab staff mailed referral letter to patient regarding Phase II Cardiac Rehab program. Instruction for patient to contact [facility] Cardiac Rehab Department for additional program information and to forward referral to closest Cardiac Rehab program. documented in this encounter Plan of Treatment Not on file documented as of this encounter Visit Diagnoses Not on filedocumented in this encounter Care Teams Quality Compliance Coordinator Relationship Specialty Start Date End Date Delmer Fritz MD [address] [place] [address] PCP - General Family Medicine 08/07/24 documented as of this encounter
--- OUTSIDE RECORDS SUMMARY | 2025-03-14 14:29 | XMS_ITS | Encounter Summary ---
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 Phase II cardiac rehab referral sent to [facility]. documented in this encounter Plan of Treatment Not on file documented as of this encounter Visit Diagnoses Not on filedocumented in this encounter Care Teams Rail Loader Relationship Specialty Start Date End Date Delmer Fritz MD [address] [place] [address] PCP - General Family Medicine 08/07/24 documented as of this encounter
--- OUTSIDE RECORDS SUMMARY | 2025-03-14 14:29 | XMS_ITS | Encounter Summary ---
Author Organization Healthcare Address [address] [place] [address] Care Team Providers Care Site Acquisition Specialist Name Role Phone Antwan Esparza MD Primary Care Provider [phone] Ángela Millard HOSPITAL COORDINATOR Unavailable [phone] Inna Serrano APRN Primary Care Provider + [phone] Encounter Details Date Type Department Care Team (Late Contact Info) Description 02/01/2021 Orders Only External Location [address] [place] [address] Provider, External Social History Tobacco Use Types [...] Description 04/08/2025 12:00 PM EST Office Visit [facility] Nephrology, Bone & Mineral Metabolism [address] [facility], [address] [place] [address] David Workman MD [address] [place] [address] 05/19/2025 1:00 PM EST Office Visit [facility] at [facility] [address] [address] Leslie Suarez, DO [address] [place] [address] 09/30/2025 10:10 AM EDT Appointment [facility] Radiology [address] [place] [address] 09/30/2025 11:30 AM EDT Office Visit [facility] Head[facility] Neck & Respiratory [address] 2nd [place] [address] Aysha Crews MD [address] [place] [address] documented as of this encounter [...] documented as of this encounter Care Teams Site Acquisition Specialist Relationship Specialty Start Date End Date Antwan Esparza MD [address] [place] [address] PCP - General 12/14/20 02/18/24 Inna Serrano APRN [address] [place] [address] PCP - General 02/19/24 Ángela Millard APRN [address] [place] [address] Nurse Practitioner Neurosurgery 09/17/21 documented as of this encounter
--- OUTSIDE RECORDS SUMMARY | 2025-03-14 14:29 | XMS_ITS | Encounter Summary ---
Author Organization Healthcare Address [address] [place] [address] Care Team Providers Care Diabetes Education Coordinator Name Role Phone Antwan Esparza MD Primary Care Provider + [phone] Ángela Millard CITRIX CONSULTANT Unavailable [phone] Inna Serrano APRN Primary Care Provider + [phone] Encounter Details Date Type Department Care Team (Late Contact Info) Description 03/08/2021 Orders Only External Location [address] [place] [address] Provider, External Social History Tobacco Use Types [...] Description 04/08/2025 12:00 PM EST Office Visit [facility] [place] Nephrology, Bone & Mineral Metabolism [address] [facility], [address] [place] [address] David Workman MD [address] [place] [phone] 05/19/2025 1:00 PM EST Office Visit [facility] at [facility] [address] [place] [phone] Leslie Suarez, DO [address] [place] [address] 09/30/2025 10:10 AM EDT Appointment [facility] Radiology [address] [place] [address] 09/30/2025 11:30 AM EDT Office Visit [facility] Res[facility] [address] 2nd [place] [address] Aysha Crews MD [address] [place] [address] documented as of this encounter [...] documented as of this encounter Care Teams Diabetes Education Coordinator Relationship Specialty Start Date End Date Antwan Esparza MD [address] [place] [address] PCP - General 12/14/20 02/18/24 Inna Serrano APRN [address] [place] [address] PCP - General 02/19/24 Ángela Millard APRN [address] [place] [address] Nurse Practitioner Neurosurgery 09/17/21 documented as of this encounter
--- OUTSIDE RECORDS SUMMARY | 2025-03-14 14:29 | XMS_ITS | Encounter Summary ---
Author Organization [facility] Address [address] [place] [address] Care Team Providers Care Locomotive Crane Engineer Name Role Phone Ángela Millard WELCOME HOSTESS Unavailable [phone] Inna Serarno APRN Primary Care Provider [phone] Reason for Visit * Reason Onset Date Comments HCN - Patient Message 12/13/2024 Encounter Details Date Type Department Care Team ([facility] st Contact Info) Description 12/13/2024 Telephone [facility] Nephrology, Bone & Mineral Metabolism [address] [facility], [address] [place] [address] HCN - Patient Message Social History Tobacco [...] AM EDT Clinical Concern/Question Reason for Call: EFFICIENCY EXPERT calling to schedule appointment from referral placed. Diagnosis not showing on DT. Best contact number: [phone] (mobile) Optimal time of day to reach [...] 12:00 PM EST Office Visit [facility] Nephrology, Bone & Mineral Metabolism [address] [facility], [address] [place] [address] David Workman MD [address] [place] [address] 05/19/2025 1:00 PM EST Office Visit Physical Medicine [facility] Rehabilitation Clinic at [facility] [address] [place] [place] [address] Leslie Suarez DO [address] [place] [address] 09/30/2025 10:10 AM EDT Appointment [facility] Radiology [address] [place] [address] 09/30/2025 11:30 AM EDT Office Visit [facility] Head[facility] Neck & Respiratory [address] [facility], 2nd [place] [address] Aysha Crews MD [address] [place] [address] documented as of this encounter Visit Diagnoses Not on filedocumented in this encounter Additional Health Concerns Assessment Noted Time A fall risk assessment has been complete d for the patient 11/11/2024 1:29 PM EDT A Body Mass Index follow-up plan has been documented for the patient 11/11/2024 5:31 PM EDT documented as of this encounter Care Teams Locomotive Crane Engineer Relationship Specialty Start Date End Date Inna Serrano APRN [address] [place] [address] PCP - General 02/19/24 Ángela Millard APRN [address] [place] [address] Nurse Practitioner Neurosurgery 09/17/21 documented as of this encounter
--- OUTSIDE RECORDS SUMMARY | 2025-03-14 14:29 | XMS_ITS | Encounter Summary ---
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 PCI/Device Survey Flowsheet [facility]25 Procedure (if device, specify in description) PCI PCI site Right, Arm Performing MD Dr. Emir Morales Attempt successful? Yes Call start time 1231 Call end time 1243 Person spoke with today (if not patient) and relationship patient Has the patient had any of the following symptoms since discharge? -- [No complaints.] Is the patient taking prescribed medications: ASA, Prasurgrel Nursing intervention Reminded to continue to take prescribed medications Does the patient have any of the following symptoms related to the cath/surgical site? -- [Patient has removed dressing to wrist site, denies any issues at site.] Nursing intervention Patient education provided Does the patient have an appointment scheduled with the urban sociologist? Yes Appointment comments Patient reports that his follow up with Dr Armstrong is in April. Patient will see his PCP this Monday If the patient is a current smoker, are they able to teach back resources for cessation? Smoking cessation medications [Encouraged smoking cessation and to discuss with PCP smoking cessation medication help.] Did the patient feel prepared to go home on the same day as the procedure? Yes Is the patient satisfied with the same day discharge process? Yes PCI/Device call completed Yes KARY Coulter - Registered Nurse documented in this encounter Plan of Treatment Not on file documented as of this encounter Visit Diagnoses Not on filedocumented in this encounter Care Teams Business Office Technology Instructor Relationship Specialty Start Date End Date Delmer Fritz MD [address] [place] [address] PCP - General Family Medicine 08/07/24 documented as of this encounter
--- OUTSIDE RECORDS SUMMARY | 2025-03-14 14:29 | XMS_ITS | Encounter Summary ---
Author Organization Healthcare Address [address] [place] [address] Care Team Providers Care Arc Welding Machine Operator Name Role Phone Antwan Esparza MD Primary Care Provider [phone] Ángela Millard REPAIR TABLE OPERATOR Unavailable [phone] Inna Serrano APRN Primary Care Provider + [phone] Encounter Details Date Type Department Care Team (Late Contact Info) Description 02/01/2021 Orders Only External Location [address] [place] [address] Provider, External Social History Tobacco Use Types [...] Description 04/08/2025 12:00 PM EST Office Visit [facility] [place] Nephrology, Bone & Mineral Metabolism [address] [facility], [address] [place] [address] David Workman MD [address] [place] [address] 05/19/2025 1:00 PM EST Office Visit [facility] Medicine [facility] Rehabilitation Clinic at [facility] [address] [place] [address] Leslie Suarez, DO [address] [place] [address] 09/30/2025 10:10 AM EDT Appointment [facility] Radiology [address] [place] [address] 09/30/2025 11:30 AM EDT Office Visit [facility] Respiratory [address] [place] [address] Aysha Crews MD [address] [place] [address] documented as of this encounter [...] documented as of this encounter Care Teams Arc Welding Machine Operator Relationship Specialty Start Date End Date Antwan Esparza MD [address] [place] [address] PCP - General 12/14/20 02/18/24 Inna Serrano APRN [address] [place] [address] PCP - General 02/19/24 Ángela Millard APRN [address] [place] [address] Nurse Practitioner Neurosurgery 09/17/21 documented as of this encounter
--- OUTSIDE RECORDS SUMMARY | 2025-03-14 14:29 | XMS_ITS | Encounter Summary ---
Author Organization Healthcare Address [address] [place] [address] Care Team Providers Care Core Winder Name Role Phone Ángela Millard DOLPHIN RESEARCHER Unavailable [phone] Inna Serrano APRN Primary Care Provider [phone] Reason for Visit * Reason Onset Date Comments HCN - Patient Message 01/15/2025 Encounter Details Date Type Department Care Team (Late st Contact Info) Description 01/15/2025 Telephone Physical Medicine & Rehabilitation Clinic at [facility] [address] [facility] [place] [address] Leslie Suarez DO [address] [facility] [address] [place] [address] HCN - Patient Message Social [...] for the update * Telephone Encounter - CorkyCarissa - 01/15/2025 2:45 PM EDT Clinical Concern/Question SANDIE Reason for Call: Patient called back industrial technician is ordering US of kidney plus needle biopsy 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 It is all from drinking water where the PFA was in the water. Best contact number: [phone] (mobile) Optimal time of day to reach caller: ANYTIME Additional comments/information from caller: None Note: Please do not reply to this message. Follow-up communication and further actions as a result of this message need to be communicated with the patient directly, if the patient is not active onMyChart. If the patient is active on MyChart, they will receive notification of the communication/outcome via [employer]. documented in this encounter Plan of Treatment Upcoming Encounters Date Type Department Care Team (Late st Contact Info) Description 04/08/2025 12:00 PM EST Office Visit [facility] Nephrology, Bone & Mineral Metabolism [address] [facility], [address] [place] [address] David Workman MD [address] [place] [address] 05/19/2025 1:00 PM EST Office Visit [facility] Rehabilitation Clinic at [facility] [address] [place] [address] Leslie Suarez DO [address] [place] [address] 09/30/2025 10:10 AM EDT Appointment [facility] Radiology [address] [place] [address] 09/30/2025 11:30 AM EDT Office Visit [facility] Head[facility] Neck & Respiratory [address] [place] [address] Aysha Crews MD [address] [place] [address] documented as of this encounter Visit Diagnoses Not on filedocumented in this encounter Additional Health Concerns Assessment Noted Time A fall risk assessment has been complete d for the patient 01/08/2025 1:58 PM EDT A Body Mass Index follow-up plan has been documented for the patient 01/08/2025 3:33 PM EDT documented as of this encounter Care Teams Core Winder Relationship Specialty Start Date End Date Inna Serrano APRN [address] [place] [address] PCP - General 02/19/24 Ángela Millard APRN [address] [place] [address] Nurse Practitioner Neurosurgery 09/17/21 documented as of this encounter
--- OUTSIDE RECORDS SUMMARY | 2025-03-14 14:29 | XMS_ITS | Encounter Summary ---
Author Organization Healthcare Address [address] [place] [address] Care Team Providers Care Instructional Coach Name Role Phone Delmer Fritz MD Primary Care Provider [phone] Antwan Esparza MD Primary Care Provider + [phone] Ángela Millard OIL AND GAS FIELD TECHNICIAN Unavailable [phone] Inna Serrano APRN Primary Care Provider + [phone] Encounter Details Date Type Department Care Team (Late st Contact Info) Description 02/09/2011 Orders Only External Location [address] [place] [address] Vin Ji MD [address] [address] Social History Tobacco Use Types [...] 04/08/2025 12:00 PM EST Office Visit [facility] [place] Nephrology, Bone & Mineral Metabolism [address] [facility], [address] [place] [address] David Workman MD [address] [place] [address] 05/19/2025 1:00 PM EST Office Visit Physical Medicine & Rehabilitation Clinic at [facility] [place] [address] [place] [address] Leslie Suarez, [address] [place] [address] 09/30/2025 10:10 AM EDT Appointment [facility] Radiology [address] [place] [address] 09/30/2025 11:30 AM EDT Office Visit [facility] Head[facility] Neck & Respiratory [address] [place] [address] Aysha Crews MD [address] [place] [address] documented as of this encounter [...] on filedocumented in this encounter Care Teams Instructional Coach Relationship Specialty Start Date End Date Delmer Fritz MD [address] [facility] [address] [place] [address] PCP - General 10/02/20 12/13/20 Antwan Esparza MD [address] [place] [address] PCP - General 12/14/20 02/18/24 Inna Serrano APRN [address] [place] [address] PCP - General 02/19/24 Ángela Millard APRN [address] [address] Nurse Practitioner Neurosurgery 09/17/21 documented as of this encounter
--- OUTSIDE RECORDS SUMMARY | 2025-03-14 14:29 | XMS_ITS | Encounter Summary ---
Author Organization [facility] ystem Address [address] [place] [address] Care Team Providers Care Hydraulic Strainer Operator Name Role Phone Delmer Fritz MD Primary Care Provider [phone] Reason for Visit * Reason Onset Date Comments MEDICATION CONCERN 02/19/2025 Encounter Details Date Type Department Care Team (Late st Contact Info) Description 02/19/2025 Telephone [facility] CARDIOLOGY [address] [facility] [address] [place] [address] Emir García MD [address] [facility] [address] [facility] [address] [place] [address] MEDICATION CONCERN Social History Tobacco Use Types Packs/Day Years [...] 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 Armstrong for further management. Patient verbalizes understanding. * Telephone Encounter - Luca Naik RegSched Rep - 02/19/2025 8:06 AM EDT Caller: Luca Kauffman Relationship: Self Best call back number: [phone] Which medication are you concerned about: AMLODIPINE Who prescribed you this medication: DR. GARCÍA When did you start taking this medication: 02.17.25 What are your concerns: PT STATES HE HAS HAD A ALLERGIC REACTION TO THIS MEDICATION IN THE PAST, RECENTLY HAD A HEART CATH DONE AND HE HASN'T BEEN ABLE TO SLEEP SINCE TAKING MEDICATION. documented in this encounter Plan of Treatment Not on file documented as of this encounter Visit Diagnoses Not on filedocumented in this encounter Care Teams Hydraulic Strainer Operator Relationship Specialty Start Date End Date Delmer Fritz MD [address] [place] [address] PCP - General Family Medicine 08/07/24 documented as of this encounter
--- OUTSIDE RECORDS SUMMARY | 2025-03-14 14:29 | XMS_ITS | Encounter Summary ---
Author Organization [facility] Address [address] [place] [address] Care Team Providers Care High School Drafting Teacher Name Role Phone Ángela Millard DRAFTER LANDSCAPE Unavailable [phone] Inna Serrano APRN Primary Care Provider [phone] Reason for Visit * Reason Onset Date Comments HCN - Patient Message 01/21/2025 Encounter Details Date Type Department Care Team (Late st Contact Info) Description 01/21/2025 Telephone Physical Medicine & Rehabilitation Clinic at [facility] [address] [facility] [place] [address] Leslie Suarez DO [address] [facility] [address] [place] [address] HCN - Patient Message Social [...] is scheduled for renal ultrasound bx at [facility] today. No call back requested. Best contact number: [phone] (mobile) Optimal time of day to reach [...] Description 04/08/2025 12:00 PM EST Office Visit [facility] Nephrology, Bone & Mineral Metabolism [address] [facility], [address] [place] [address] David Workman MD [address] [place] [address] 05/19/2025 1:00 PM EST Office Visit [facility] at [facility] [address] [place] [address] Leslie Suarez DO [address] [place] [address] 09/30/2025 10:10 AM EDT Appointment [facility] Radiology [address] [place] [address] 09/30/2025 11:30 AM EDT Office Visit [facility] Head[facility] Neck & Respiratory [address] [facility] [place] [address] Aysha Crews MD [address] [facility] [address] [place] [address] documented as of this encounter Visit Diagnoses Not on filedocumented in this encounter Additional Health Concerns Assessment Noted Time A fall risk assessment has been complete d for the patient 01/08/2025 1:58 PM EDT A Body Mass Index follow-up plan has been documented for the patient 01/08/2025 3:33 PM EDT documented as of this encounter Care Teams High School Drafting Teacher Relationship Specialty Start Date End Date Inna Serrano APRN [address] [place], [place] [id number] PCP - General 02/19/24 Ángela Millard APRN [address] [place] [address] Nurse Practitioner Neurosurgery 09/17/21 documented as of this encounter
--- OUTSIDE RECORDS SUMMARY | 2025-03-14 14:29 | XMS_ITS | Encounter Summary ---
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 Suicidal Behavior (Lifetime) No 6:45 AM EDT Muna Rothman RN documented as of this encounter Plan of Treatment Not on file documented as of this encounter Visit Diagnoses Not on filedocumented in this encounter Care Teams Prescriptionist Relationship Specialty Start Date End Date Delmer Fritz MD [address] [place] [address] PCP - General Family Medicine 08/07/24 documented as of this encounter
--- OUTSIDE RECORDS SUMMARY | 2025-03-14 14:30 | XMS_ITS | Encounter Summary ---
Author Organization Healthcare Address [address] [place] [address] Care Team Providers Care Distribution Field Technician Name Role Phone Antwan Esparza MD Primary Care Provider + [phone] Ángela Millard GREASE WORKER Unavailable +[phone] Inna Serrano APRN Primary Care Provider + [phone] Encounter Details Date Type Department Care Team (Late Contact Info) Description 05/24/2022 Orders Only External Location [address] [place] [address] Provider, External Social History Tobacco Use Types [...] Description 04/08/2025 12:00 PM EST Office Visit [facility] Nephrology, Bone & Mineral Metabolism [address] [facility], [address] [place] [address] David Workman MD [address] [place] [address] 05/19/2025 1:00 PM EST Office Visit [facility] at [facility] [address] [place] [address] Leslie Suarez DO [address] [place] [address] 09/30/2025 10:10 AM EDT Appointment [facility] [address] [place] [address] 09/30/2025 11:30 AM EDT Office Visit [facility] [address] 2nd [place] [address] Aysha Crews MD [address] [place] [address] documented as of this encounter [...] documented as of this encounter Care Teams Distribution Field Technician Relationship Specialty Start Date End Date Antwan Esparza MD [address] [place] [address] PCP - General 12/14/20 02/18/24 Inna Serrano APRN [address] [place] [address] PCP - General 02/19/24 Ángela Millard APRN [address] [place] [address] Nurse Practitioner Neurosurgery 09/17/21 documented as of this encounter
--- OUTSIDE RECORDS SUMMARY | 2025-03-14 14:30 | XMS_ITS | Encounter Summary ---
Author Organization Healthcare Address [address] [place] [address] Care Team Providers Care Barrel Dedenting Machine Operator Name Role Phone Delmer Fritz MD Primary Care Provider [phone] Antwan Esparza MD Primary Care Provider + [phone] Ángela Millard WATCH PARTS INSPECTOR Unavailable +[phone] Inna Serrano APRN Primary Care Provider + [phone] Encounter Details Date Type Department Care Team (Late st Contact Info) Description 05/13/2020 Orders Only External Location [address] [place] [address] Provider, External Social History Tobacco Use Types [...] Description 04/08/2025 12:00 PM EST Office Visit [facility] [place] Nephrology, Bone & Mineral Metabolism [address] [facility], [address] [place] [address] David Workman MD [address] [place] [address] 05/19/2025 1:00 PM EST Office Visit [facility] at [facility] [address] [place] [address] Leslie Suarez DO [address] [place] [address] 09/30/2025 10:10 AM EDT Appointment [facility] [address] [place] [address] 09/30/2025 11:30 AM EDT Office Visit [facility] [address]nd [place] [address] Aysha Crews MD [address] [facility] [address] [place] [address] documented as of this encounter [...] on filedocumented in this encounter Care Teams Barrel Dedenting Machine Operator Relationship Specialty Start Date End Date Delmer Fritz MD [address] [facility] [address] [place] [address] PCP - General 10/02/20 12/13/20 Antwan Esparza MD [address] [place] [address] PCP - General 12/14/20 02/18/24 Inna Serrano APRN [facility] [place] [address] PCP - General 02/19/24 Ángela Millard APRN [address] [place] [address] Nurse Practitioner Neurosurgery 09/17/21 documented as of this encounter
--- OUTSIDE RECORDS SUMMARY | 2025-03-14 14:30 | XMS_ITS | Encounter Summary ---
Author Organization Healthcare Address [address] [place] [address] Care Team Providers Care Film Mounter Name Role Phone Delmer Fritz MD Primary Care Provider [phone] Antwan Esparza MD Primary Care Provider + [phone] Ángela Millard LIGHT OIL OPERATOR Unavailable [phone] Inna Serrano APRN Primary Care Provider + [phone] Encounter Details Date Type Department Care Team (Late st Contact Info) Description 10/30/2012 Orders Only External Location [address] [place] [address] Provider, External Social History Tobacco Use Types [...] Description 04/08/2025 12:00 PM EST Office Visit [email or web address] [place] Nephrology, Bone & Mineral Metabolism [address] [facility], [address] [place] [address] David Workman MD [address] [place] [address] 05/19/2025 1:00 PM EST Office Visit [facility] Rehabilitation [facility] at [facility] [address] [place] [address] Leslie Suarez DO [address] [facility] [address] [place] [address] 09/30/2025 10:10 AM EDT Appointment [facility] [address] [place] [address] 09/30/2025 11:30 AM EDT Office Visit [facility] [address] [place] [address] Aysha Crews MD [address] [place] [address] documented as of this encounter [...] on filedocumented in this encounter Care Teams Film Mounter Relationship Specialty Start Date End Date Delmer Fritz MD [address] [facility] [address] [place] [address] PCP - General 10/02/20 12/13/20 Antwan Esparza MD [address] [place], [place] [address] PCP - General 12/14/20 02/18/24 Inna Serrano APRN [facility] [place] [address] PCP - General 02/19/24 Ángela Millard APRN [address] [facility] [address] [place] [address] Nurse Practitioner Neurosurgery 09/17/21 documented as of this encounter
--- OUTSIDE RECORDS SUMMARY | 2025-03-14 14:30 | XMS_ITS | Encounter Summary ---
Author Organization Healthcare Address [address] [place] [address] Care Team Providers Care Landscaping Specialist Name Role Phone Delmer Fritz MD Primary Care Provider [phone] Antwan Esparza MD Primary Care Provider + [phone] Ángela Millard HEMMER CHAINSTITCH Unavailable [phone] Inna Serrano APRN Primary Care Provider + [phone] Encounter Details Date Type Department Care Team (Late st Contact Info) Description 08/14/2019 Orders Only External Location [address] [place] [address] Provider, External Social History Tobacco Use Types [...] Description 04/08/2025 12:00 PM EST Office Visit [facility] Nephrology, Bone & Mineral Metabolism [address] [facility], [address] [place] [address] David Workman MD [address] [place] [address] 05/19/2025 1:00 PM EST Office Visit [facility] Rehabilitation Clinic at [facility] [address] [place] [address] Leslie Suarez DO [address] [place] [address] 09/30/2025 10:10 AM EDT Appointment [facility] [address] [place] [address] 09/30/2025 11:30 AM EDT Office Visit [facility] [address] [place] [address] Aysha Crwes MD [address] [place] [address] documented as of this encounter [...] on filedocumented in this encounter Care Teams Landscaping Specialist Relationship Specialty Start Date End Date Delmer Fritz MD [address] [facility] [address] [place] [address] PCP - General 10/02/20 12/13/20 Antwan Esparza MD 9 [place] [address] PCP - General 12/14/20 02/18/24 Inna Serrano APRN [address] [place] [address] PCP - General 02/19/24 Ángela Millard APRN [address] [place] [address] Nurse Practitioner Neurosurgery 09/17/21 documented as of this encounter
--- OUTSIDE RECORDS SUMMARY | 2025-03-14 14:30 | XMS_ITS | Encounter Summary ---
Author Organization Healthcare Address [address] [place] [address] Care Team Providers Care Laboratory Coordinator Name Role Phone Antwan Esparza MD Primary Care Provider + [phone] Ángela Millard LEASE PURCHASE DRIVER Unavailable [phone] Inna Serrano APRN Primary Care Provider + [phone] Encounter Details Date Type Department Care Team (Late Contact Info) Description 01/25/2023 Orders Only External Location [address] [place] [address] Provider, External Social History Tobacco Use Types [...] Description 04/08/2025 12:00 PM EST Office Visit [facility] Nephrology, Bone & Mineral Metabolism [address] [facility], [address] [place] [address] David Workman MD [address] [place] [address] 05/19/2025 1:00 PM EST Office Visit [facility] at [facility] [address] [place] [address] Leslie Suarez DO [address] [place] [address] 09/30/2025 10:10 AM EDT Appointment [facility] [address] [place] [address] 09/30/2025 11:30 AM EDT Office Visit [facility] [address] 2nd [place] [address] Aysha Crews MD [address] [place] [address] documented as of this encounter [...] documented as of this encounter Care Teams Laboratory Coordinator Relationship Specialty Start Date End Date Antwan Esparza MD [address] [place] [address] PCP - General 12/14/20 02/18/24 Inna Serrano APRN [address] [place] [address] PCP - General 02/19/24 Ángela Millard, BELINDA [address] [place] [address] Nurse Practitioner Neurosurgery 09/17/21 documented as of this encounter
--- OUTSIDE RECORDS SUMMARY | 2025-03-14 14:30 | XMS_ITS | Encounter Summary ---
Author Organization Healthcare Address [address] [place] [address] Care Team Providers Care Petroleum Refining Equipment Operator Name Role Phone Antwan Esparza MD Primary Care Provider + [phone] Ángela Millard CARD SERVICES SPECIALIST Unavailable [phone] Inna Serrano APRN Primary Care Provider + [phone] Encounter Details Date Type Department Care Team ([facility] Contact Info) Description 08/06/2021 Orders Only External Location [address] [place] [address] Provider, External Social History Tobacco Use Types [...] Upcoming Encounters Date Type Department Care Team ([facility] Contact Info) Description 04/08/2025 12:00 PM EST Office Visit [facility] Nephrology, Bone & Mineral Metabolism [address] [facility], [address] [place] [address] David Workman MD [address] [place] [address] 05/19/2025 1:00 PM EST Office Visit [facility] at [facility] [address] [place] [address] Adonis Prince LeslieDO [address] [place] [address] 09/30/2025 10:10 AM EDT Appointment [facility] [address] [place] [address] 09/30/2025 11:30 AM EDT Office Visit [facility] Res[facility] [address] 2nd [place] [address] Aysha Crews MD [address] [place] [address] documented as of this encounter [...] documented as of this encounter Care Teams Petroleum Refining Equipment Operator Relationship Specialty Start Date End Date Antwan Esparza MD [address] [place] [address] PCP - General 12/14/20 02/18/24 Inna Serrano APRN [address] [place] [address] PCP - General 02/19/24 Ángela Millard APRN [address] [address] Nurse Practitioner Neurosurgery 09/17/21 documented as of this encounter
--- OUTSIDE RECORDS SUMMARY | 2025-03-14 14:30 | XMS_ITS | Encounter Summary ---
Author Organization Healthcare Address [address] [place] [address] Care Team Providers Care Director Group Sales Name Role Phone Delmer Fritz MD Primary Care Provider [phone] Antwan Esparza MD Primary Care Provider + [phone] Ángela Millard AUTOMOBILE DAMAGE FIELD APPRAISER Unavailable [phone] Inna Serrano APRN Primary Care Provider + [phone] Encounter Details Date Type Department Care Team (Late st Contact Info) Description 02/08/2017 Orders Only External Location [address] [place] [address] Provider, External Social History Tobacco Use Types [...] Description 04/08/2025 12:00 PM EST Office Visit [facility] Nephrology, Bone & Mineral Metabolism [address] [facility], [address] [place] [address] David Workman MD [address] [place] [address] 05/19/2025 1:00 PM EST Office Visit [facility] Rehabilitation Clinic at [facility] [address] [place] [address] Leslie Suarez DO [address] [place] [address] 09/30/2025 10:10 AM EDT Appointment [facility] [address] [place] [address] 09/30/2025 11:30 AM EDT Office Visit [facility] Res[facility] [address] [place] [address] Aysha Crews MD [address] [facility] [address] [place] [address] documented as of this encounter [...] on filedocumented in this encounter Care Teams Director Group Sales Relationship Specialty Start Date End Date Delmer Fritz MD [address] [facility] [address] [place] [address] PCP - General 10/02/20 12/13/20 Antwan Esparza MD 9 [place] [address] PCP - General 12/14/20 02/18/24 Inna Serrano APRN [facility] [place] [address] PCP - General 02/19/24 Ángela Millard APRN [address] [facility] [address] [place] [address] Nurse Practitioner Neurosurgery 09/17/21 documented as of this encounter
--- OUTSIDE RECORDS SUMMARY | 2025-03-14 14:30 | XMS_ITS | Data Portability ---
Author Organization [place] - [facility] - [place] [facility] ADMIN Address [address] [place] [address] Care Team Providers Care Orthopedic Tech Name Role Phone APOLINAR MARISCAL Primary Care Provider [phone] Assessment Encounter Date Assessment Date Assessment LastModified [...] of tobacco and alcohol 6-8 week f/u [email or web address] Not available 11/06/2023 16:37:06 Plan of Treatment Reminders Order Date Submit Date Provider Last Modified By Organization Details Last Modified Time Details Appointments None record ed. Lab None record ed. Referral dermat ologis t referr al 2022 023 [facility], [address] [place], [address], 3 14:32:26 endocr inolog y referr al - thyroi d nodule 2022 023 [facility] , [address] [place] [address], [place], [address], 3 05:01:47 Procedures None record ed. Surgeries None record ed. Imaging CT, chest, w/o contra st [address] (Scheduling), [address], [place], [address], 3 10:16:35 Medication Orders pantop razole 40 mg tablet ,delay ed releas e 2023 024 [facility], [address] [facility] [address] [place], [id number], 4 15:07:34 Patient TargetsNo targets recorded. Patient InstructionsNo instructions recorded. Reason for Referral Endocrinology Referral for T hyroid nodule thyroid nodule Referring Physician: Jose Mccracken, Hematology/Oncology, Encounter Date: 07/29/2022 Actionscript Developer Referral for S kin lesion Referring Physician: Jose Mccracken, Hematology/Oncology, Encounter Date: 02/01/2023 Results Created Date Observation Date Name Description Value Unit Range Abnormal Flag Note LastModifiedBy Organization Detail LastModifiedTime 07/26/19 23 05/24/2022 US, thyro id No observ ation record ed. [facility] (Med Record) [address], [place], [address], 07/26/2022 08:54:38 12/20/1912/14/2022 imagi ng/di agnos tic resul t No observ ation record ed. [address], [place], [address], 12/20/2022 06:28:04 12/22/1912/30/2018 CT, chest , w/ contr ast No observ ation record ed. [address] [facility], [place], [address], 12/22/2022 10:08:15 01/11/2012/14/2022 CT, chest , w/ contr ast No observ ation record ed. [address] [facility] [address], [place], [address], 01/11/2023 13:35:49 01/28/2001/25/2023 CT, chest , w/o contr ast No observ ation record ed. [facility] [address], [place], [address], 01/27/2023 12:44:10 02/02/2005/13/2020 CT, chest , w/ contr ast No observ ation record ed. [email or web address] [facility] (Med Record) [address], [place], [address], 02/01/2023 14:01:06 02/02/20 23 05/13/2020 CT, chest , w/ contr ast No observ ation record ed. [email or web address] [address], [place], [address], 02/02/2023 08:58:00 07/04/19 25 06/26/2024 CT, chest , w/ contr ast No observ ation record ed. [email or web address] [facility] (Med Record) [address], [place], [address], 07/04/2024 15:40:52 08/17/19 25 PET, skull base to mid-t high No observ ation record ed. [email or web address] Not Available 2024 12:39:53 Result Notes None recorded. Procedures Surgical History Date Name Laterality Status Provider Name and Address Organization Details Recorded Time 021 Gastrointestinal Surgery completed Neo Patton [place] - [facility] [place] 11/06/2023 14:00:49 Imaging Results None recorded. Procedure Notes None recorded. Medical Equipment None Reported. Allergies Allergen ID Allergen Name Allergen Category Reaction Reaction Severity Criticality Documentation Date Start Date Code Code System Note Provider Name and Address Organization Details Recorded Time 491205 Cipro medicatio n Not available Not available Not available 11/06/2023 56068 3 RxNorm Neo ruano null, [place] - [place] [facility] & [place] 4 14:11:53 061675 Product containin g glucocort icoid (product) medicatio n Not available Not available Not available 11/06/2023 91026 6006 SNOMED Neo ruano null, [place] [facility] & [place] 4 14:12:04 540292 erythromy deborah medicatio n Not available Not available Not available 11/06/2023 4053 RxNorm Neo ruano null, [place] - [facility] & [place] 4 14:12:12 737545 Fish (substanc e) food,medi cation Not available Not available Not available 11/06/2023 09420 1005 SNOMED Neo Nayely ruano null, [place] - [facility] & [place] 4 14:12:27 369065 iopamidol medicatio n Not available Not available Not available 11/06/2023 5966 RxNorm Neo ruano null, [place] - [facility] & [place] 4 14:12:34 849608 lisinopri l medicatio n Not available Not available Not available 11/06/2023 69612 RxNorm Neo ruano null, [place] [facility] [place] 4 14:12:45 999093 losartan medicatio n Not available Not available Not available 11/06/2023 91028 RxNorm Neo Bartletto n [place] [facility] [place] 4 14:12:52 622078 Non-stero idal anti-infl ammatory agent (substanc e) medicatio n Not available Not available Not available 11/06/2023 53209 5008 SNOMED Neo Bartletto n [place] [facility] & [place] 4 14:12:58 772535 Product containin g penicilli n (product) medicatio n Not available Not available Not available 11/06/2023 93188 8001 SNOMED Neo Bartletto n [place] [facility] & [place] 4 14:13:04 754657 tramadol medicatio n Not available Not available Not available 11/06/2023 38409 RxNorm Neo Bartletto n [place] [facility] [place] 4 14:13:11 403606 albuterol medicatio n Not available Not available Not available 11/06/2023 435 RxNorm Neo Bartletto n [place] [facility] & [place] 4 14:13:29 858845 Iodinated contrast media (substanc e) medicatio n Not available Not available Not available 11/06/2023 59797 2004 SNOMED Neo Bartletto n [place] [facility] & [place] 4 14:13:36 Medications Name Sig Start Date Stop Date Status Note LastModified by Organization Details LastModified Time Prescription - Renewal active Not Available Not Available No t Available lpv cream (rr) 11/05 completed Not Available [...] blood by Pulse oximetry Heart rate Systolic And Diastolic Provider Name and Address Organization Details Last Updated DateTime 632498. 05 g 34.6 kg/m2 182.88 cm 97.7 [degF] 97 % 97 % 84 /min 164/111 mm[Hg] Neo VICENTE [facility] [place] 14:05:35 Social History Question Answer Notes LastModified by Organizat ion Details LastModified Time Tobacco Smoking Status Former Smoker [place] [facility] [place] 11/06/2023 14:00:43 Do You Have An Advance Directive? Yes [email or web address] Information not available 11/06/2023 Are You Blind Or Do You Have Difficulty Seeing? Yes [email or web address] Information not available 11/06/2023 What Was The Date Of Your Most Recent Tobacco Screening? 07/24/2022 [email or web address] Information not available 11/06/2023 Are You Passively Exposed To Smoke? No [email or web address] Information not available 11/06/2023 How Much Tobacco Do You Smoke? No [email or web address] Information not available 11/06/2023 How Many Years Have You Smoked Tobacco? 35 [email or web address] Information not available 11/06/2023 Sex: Unknown Functional Status Question Answer Note LastModified by Organizat ion Details LastModified Time Do you use any illicit or recreational drugs? No Information not available 11/06/2023 What is your level of alcohol consumption? None [email or web address] Information not available 11/06/2023 Do you or have you ever used smokeless tobacco? Never used smokeless tobacco [email or web address] Information not available 11/06/2023 What is your exercise level? Moderate [email or web address] Information not available 11/06/2023 Mental Status Question Answer Note LastModified by Organization D etails LastModified Time Do you feel stressed (tense, restless, nervous, or anxious, or unable to sleep at night)? [id number] [email or web address] Information not available 11/06/2023 Family History Relationship Description Onset Age of this Age Resolved Age Notes LastModified by Organization Details LastModified Time Mother Chronic obstructive pulmonary disease pt. added direct ly (11/02) [email or web address] Not available 11/03/2023 14:14:24 Father Chronic obstructive pulmonary disease pt. added direct ly (11/02) [email or web address]-13 Not available 11/03/2023 14:14:24 Medical History Condition Response Autoimmune disease Y Vision or Eye Problems Y Arthritis Y Back Problems Y Thyroid Problems Y COPD Y GI Problems Y Lung Disease Y Osteoporosis/Osteopenia Y Heart Disease Y Hypertension Y Neurological Problems Y Immunizations Vaccine Type Date Status Note Provider Nam e and Address Organization Details Recorded Time influenza, intradermal, quadrivalent, preservative free 9 completed Brooklynn lai, [place] - [facility] [place] 10/27/2023 08:17:10 Pneumococcal conjugate PCV 13 9 completed Brooklynn lai, [place] [facility] [place] [facility] [place] 10/27/2023 08:17:10 Td (adult), 2 Lf tetanus toxoid, preservative free, adsorbed 4 completed Brooklynn lai, [place] [facility] [place] [facility] [place] 10/27/2023 08:17:10 DTaP 4 completed Brooklynn lai, [place] [facility] [place] 10/27/2023 08:17:10 Past Encounters Encounter ID Performer Location Encounter Start Date Encounter Closed Date Diagnosis/Indication Diagnosis SNOMED-CT Code Diagnosis ICD10 Code Diagnosis IMO Codes Diagnosis Note [id number] Jose Mccracken MD [facility] [address] [place] [address] 07/29/2022 12:03:08 07/29/2022 12:07:25 Multiple nodules of lung 890283755 R91.8 Patient with long history of pulmonary nodules. Patient follows with Pulmonary Medicine. Patient has been seen previously [facility] by Pulmonary Medicine as well [...] swallowing . Patient seen by ENT at [facility] and no interventi on planned. Telephone visit [...] and ended at 12:05 p.m.. Thyroid nodule 787920755 E04.1 Ultrasound of the thyroid performed on [...] swallowing . Patient seen by ENT at [facility] and no interventi on planned. 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 Thrombocyt openic disorder 685611355 D69.6 Labs on December 24, 2020 with white blood cell count 7.7. Red blood count 5.2. Hemoglobin 16.5 and hematocrit 47.0. Platelet count 224413. Normal cell differenti al. Patient recently seen at [facility] and had labs performed on October 15, 2021. White blood cell count 7.2. Red blood count 5.24. Hemoglobin 16.8 and hematocrit 47.9. MCV 91.3. MCH 32.0. Platelet count 773715. GFR greater than 60. Creatinine 1.0. Normal liver function testing.Pr eviously on imaging from April 2020 patient had mild splenomega ly with spleen at 14 cm. If platelet count continues to decrease would repeat imaging. [id number] Jose Mccracken MD [facility] [address] [place] [address] 12/16/2022 10:28:44 12/16/2022 11:45:01 Multiple nodules of lung 557046854 R91.8 Patient with long history of pulmonary nodules. Patient follows with Pulmonary Medicine. Patient has been seen previously [facility] by Pulmonary Medicine as well [...] patient recently seen by CT surgery at [facility]. Previously has been evaluated by Cardiology at [facility] for congestive heart failure. Patient has decrease in ejection fraction and difficulty with hypertensi on. During the course of last few weeks patient has had blood pressure medication altered to help lower his blood pressure. Cardiac imaging performed at [facility] with concern for cardiac nodularity . Patient had biopsy of myocardium on December 15, 2022 at [facility]. Will follow-up pathology. Patient concern for possible malignancy verses etiology of congestive heart failure. Will follow-up pathology sampling. Plan see the patient back for phone visit next few weeks. Thyroid nodule 935206388 E04.1 Ultrasound of the thyroid performed on [...] swallowing . Patient seen by ENT at [facility] and no interventi on planned. 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 Thrombocyt openic disorder 199362217 D69.6 Labs on December 24, 2020 with white blood cell count 7.7. Red blood count 5.2. Hemoglobin 16.5 and hematocrit 47.0. Platelet count 467624. Normal cell differenti al. Patient recently seen at [facility] and had labs performed on October 15, 2021. White blood cell count 7.2. Red blood count 5.24. Hemoglobin 16.8 and hematocrit 47.9. MCV 91.3. MCH 32.0. Platelet count 436319. GFR greater than 60. Creatinine 1.0. Normal liver function testing.Pr eviously on imaging from April 2020 patient had mild splenomega ly with spleen at 14 cm. If platelet count continues to decrease would repeat imaging. Chronic sy stolic heart failure 776891617 I50.22 Recent diagnosis in 2022 of congestive heart failure. Decrease in ejection fraction. Long history of hypertensi on.Myometr ium biopsy on December 15, 2022. Chronic ob structive pulmonary disease 42840691 J44.9 History of COPD. Patient follows with Pulmonary Medicine. Peripheral vascular disease 967781164 I73.9 Patient seen by vascular surgery at [facility]. Difficulty with peripheral circulatio n and findings of peripheral vascular disease. Patient was also diagnosed with congestive heart failure around this time. [id number] Jose Mccracken MD [facility] [address] [place] [address] 02/01/2023 14:16:47 02/01/2023 15:10:02 Multiple nodules of lung 562159135 R91.8 Patient with long history of pulmonary nodules. Patient follows with Pulmonary Medicine. Patient has been seen previously [facility] by Pulmonary Medicine as well [...] from May 13, 2020. Imaging performed at [facility]. No findings of axillary adenopathy . [...] and ended at 3:05 p.m.. Thyroid nodule 195706639 E04.1 Ultrasound of the thyroid performed on [...] swallowing . Patient seen by ENT at [facility] and no interventi on planned. Telephone visit [...] thyroidect gideon on March 02, 2023 at [facility]. 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 Thrombocyt openic disorder 832412050 D69.6 Labs on December 24, 2020 with white blood cell count 7.7. Red blood count 5.2. Hemoglobin 16.5 and hematocrit 47.0. Platelet count 441170. Normal cell differenti al. Patient recently seen at [facility] and had labs performed on October 15, 2021. White blood cell count 7.2. Red blood count 5.24. Hemoglobin 16.8 and hematocrit 47.9. MCV 91.3. MCH 32.0. Platelet count 433344. GFR greater than 60. Creatinine 1.0. Normal liver function testing. Previously on imaging from April 2020 patient had mild splenomega ly with spleen at 14 cm. If platelet count continues to decrease would repeat imaging. Stable findings on imaging from January 25, 2023. Chronic sy stolic heart failure 467244118 I50.22 Recent diagnosis in 2022 of congestive heart failure. Decrease in ejection fraction. Long history of hypertensi on.Myometr ium biopsy on December 15, 2022. Chronic ob structive pulmonary disease 35772746 J44.9 History of COPD. Patient follows with Pulmonary Medicine. Peripheral vascular disease 296330216 I73.9 Patient seen by vascular surgery at [facility]. Difficulty with peripheral circulatio n and findings of peripheral vascular disease. Patient was also diagnosed with congestive heart failure around this time. Skin lesion 63652573 L98 .9 Patient reports dark skin lesion under left arm. Patient requesting to be seen by Dermatolog y. Will make referral [id number] Jose Mccracken MD [facility] [address] [place] [address] 03/22/2023 15:04:08 03/23/2023 06:54:50 Multiple nodules of lung 345684821 R91.8 Patient with long history of pulmonary nodules. Patient follows with Pulmonary Medicine. Patient has been seen previously [facility] by Pulmonary Medicine as well [...] from May 13, 2020. Imaging performed at [facility]. No findings of axillary adenopathy . Small mediastina l lymph nodes unchanged from 2019. Emphysemat ous changes noted. Small 5 mm posterior lower lobe nodule that is stable and unchanged from CT scan from April 2020. No new masses or nodules. Heart is normal in size. No pericardia l or pleural effusion. Thyroid nodule 802400608 E04.1 Ultrasound of the thyroid performed on [...] swallowing . Patient seen by ENT at [facility] and no interventi on planned.Pl anned to have total thyroidect gideon on March 02, 2023 at [facility]. CT scan of the chest performed on January 25, 2023 with comparison to imaging from May 13, 2020. Imaging performed at [facility]. No findings of axillary adenopathy . Small mediastina l lymph nodes unchanged from 2019. Emphysemat ous changes noted. Small 5 mm posterior lower lobe nodule that is stable and unchanged from CT scan from April 2020. No new masses or nodules. Heart is normal in size. No pericardia l or pleural effusion. Patient was recently seen by Endocrinol [facility]. 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 Thrombocyt openic disorder 415481441 D69.6 Labs on December 24, 2020 with white blood cell count 7.7. Red blood count 5.2. Hemoglobin 16.5 and hematocrit 47.0. Platelet count 518757. Normal cell differenti al. Patient recently seen at [facility] and had labs performed on October 15, 2021. White blood cell count 7.2. Red blood count 5.24. Hemoglobin 16.8 and hematocrit 47.9. MCV 91.3. MCH 32.0. Platelet count 015881. GFR greater than 60. Creatinine 1.0. Normal liver function testing. Previously on imaging from April 2020 patient had mild splenomega ly with spleen at 14 cm. If platelet count continues to decrease would repeat imaging. Stable findings on imaging from January 25, 2023. Chronic sy stolic heart failure 739803992 I50.22 Recent diagnosis in 2022 of congestive heart failure. Decrease in ejection fraction. Long history of hypertensi on.Myometr ium biopsy on December 15, 2022. Chronic ob structive pulmonary disease 04394531 J44.9 History of COPD. Patient follows with Pulmonary Medicine. Peripheral vascular disease 588004041 I73.9 Patient seen by vascular surgery at [facility]. Difficulty with peripheral circulatio n and findings of peripheral vascular disease. Patient was also diagnosed with congestive heart failure around this time. Lower extremity edema multifacto rial. Patient with congestive heart failure as well as peripheral vascular disease. [id number] Santo Mello MD [facility] [address] [facility] [address] [facility] [place] [address] 11/06/2023 13:54:10 11/06/2023 15:03:57 Ugrate's esophagus 185082247 K22.70 Diverticul osis of colon 466087114 K57.30 Diverticulitis 086905205 K57.92 Umbilical hernia 7166323 07 K42.9 Health Concerns Section Related Observation LastModified by Organization Detai ls LastModified Time None Recorded Concern Status LastModified by Organization Details LastModified Time None Recorded Advance Directives Directive Y: Payers Insurance Date Sequence Insurance Name Policy Number Policy Morton Covered Member ID Morton Member ID Guarantor Name 03/01/2019 1 [employer] (MEDICAID REPLACEMENT - HMO) [id number] Luca Kauffman [id number] Luca Kauffman 11/03/2023 1 [facility] (MEDICAID HMO) [id number] Luca Kauffman [id number] Luca Kauffman Notes Date Note Type Note [...] Previous liver biopsy with concerns for cirrhosis..In 2020 the patient reports being seen at [facility] by CT surgery as well as Pulmonary Medicine. Patient had bronchoscopy for evaluation of pulmonary nodules. Have requested records. Patient also reports having surgery with a nodule removed. Will follow-up pathology evaluation.Records from [facility] obtained:PET scan performed on October 11, [...] following PET scan had EBUS performed at [facility] with Pulmonary Medicine. Lymph nodes [...] Hemoglobin 16.5 and hematocrit 47.0. Platelet count 402099. Normal cell differential.Patient recently seen at [facility] and had labs performed on October 15, 2021. White blood cell count 7.2. Red blood count 5.24. Hemoglobin 16.8 and hematocrit 47.9. MCV 91.3. MCH 32.0. Platelet count 769415. GFR greater than 60. Creatinine 1.0. Normal [...] with swallowing. Patient seen by ENT at [facility] and no intervention planned. Telephone visit on July 29, 2022. Discussed repeat CT scan of the chest and will proceed with repeat in December 2022. discussed potential evaluation with Endocrinology due to thyromegaly. Patient is on a regular diet. Will consult with Endocrinology if any further testing needs to be performed of thyromegaly. Jose Mccracken MD [address], [place], [address], [place] [facility] - [place] [facility] [place] 07/29/2022 12:05:46 12/16/2022 text/html 57 yo M [...] positive family history of lung cancer. In 2020 the patient reports being seen at [facility] by CT surgery as well as Pulmonary Medicine. Patient had bronchoscopy for evaluation of pulmonary nodules. Have requested records. Patient also reports having surgery with a nodule removed. Will follow-up pathology evaluation.Records from [facility] hospital obtained:PET scan performed on October 11, [...] following PET scan had EBUS performed at [facility] with Pulmonary Medicine. Lymph nodes [...] Hemoglobin 16.5 and hematocrit 47.0. Platelet count 427343. Normal cell differential.Patient recently seen at [facility] and had labs performed on October 15, 2021. White blood cell count 7.2. Red blood count 5.24. Hemoglobin 16.8 and hematocrit 47.9. MCV 91.3. MCH 32.0. Platelet count 561792. GFR greater than 60. Creatinine 1.0. Normal [...] with swallowing. Patient seen by ENT at [facility] and no intervention planned. Telephone visit on July 29, 2022. Discussed repeat CT scan of the chest and will proceed with repeat in December 2022. discussed potential evaluation with Endocrinology due to thyromegaly. Telephone visit on December 16, 2022. Telephone visit began at 11:15 a.m. and ended at 11:35 a.m. patient recently seen by CT surgery at [facility]. Previously has been evaluated by Cardiology at [facility] for congestive heart failure. Patient has decrease in ejection fraction and difficulty with hypertension. During the course of last few weeks patient has had blood pressure medication altered to help lower his blood pressure. Cardiac imaging performed at [facility] with concern for cardiac nodularity. Patient had biopsy of myocardium on December 15, 2022 at [facility]. Will follow-up pathology. Patient concern for possible malignancy verses etiology of congestive heart failure. Will follow-up pathology sampling. Plan see the patient back for phone visit next few weeks. Jose Mccracken MD [address] [facility], [place], [address], [place] [facility] 12/16/2022 11:43:41 02/01/2023 text/html 57 yo M [...] 2019 the patient reports being seen at [facility] by CT surgery as well as Pulmonary Medicine. Patient had bronchoscopy for evaluation of pulmonary nodules. Have requested records. Patient also reports having surgery with a nodule removed. Will follow-up pathology evaluation.Records from [facility] obtained:PET scan performed on October 11, [...] following PET scan had EBUS performed at [facility] with Pulmonary Medicine. Lymph nodes [...] Hemoglobin 16.5 and hematocrit 47.0. Platelet count 512545. Normal cell differential.Patient recently seen at [facility] and had labs performed on October 15, 2021. White blood cell count 7.2. Red blood count 5.24. Hemoglobin 16.8 and hematocrit 47.9. MCV 91.3. MCH 32.0. Platelet count 509951. GFR greater than 60. Creatinine 1.0. Normal [...] with swallowing. Patient seen by ENT at [facility] and no intervention planned. Telephone visit on July 29, 2022. Discussed repeat CT scan of the chest and will proceed with repeat in December 2022. discussed potential evaluation with Endocrinology due to thyromegaly. Telephone visit on December 16, 2022. Telephone visit began at 11:15 a.m. and ended at 11:35 a.m. patient recently seen by CT surgery at [facility]. Previously has been evaluated by Cardiology at [facility] for congestive heart failure. Patient has decrease in ejection fraction and difficulty with hypertension. During the course of last few weeks patient has had blood pressure medication altered to help lower his blood pressure. Cardiac imaging performed at [facility] with concern for cardiac nodularity. Patient had biopsy of myocardium on December 15, 2022 at [facility]. Will follow-up pathology. CT scan of the chest performed on January 25, 2023 with comparison to imaging from May 13, 2020. Imaging performed at [facility]. No findings of axillary adenopathy. Small [...] continued follow-up as needed Jose Mccracken MD [address] [facility], [place], [address], [place] 02/01/2023 15:08:02 03/22/2023 text/html 57 yo M [...] 2019 the patient reports being seen at [facility] by CT surgery as well as Pulmonary Medicine. Patient had bronchoscopy for evaluation of pulmonary nodules. Have requested records. Patient also reports having surgery with a nodule removed. Will follow-up pathology evaluation.Records from [facility] hospital obtained:PET scan performed on October 11, [...] following PET scan had EBUS performed at [facility] with Pulmonary Medicine. Lymph nodes [...] Hemoglobin 16.5 and hematocrit 47.0. Platelet count 023442. Normal cell differential.Patient recently seen at [facility] and had labs performed on October 15, 2021. White blood cell count 7.2. Red blood count 5.24. Hemoglobin 16.8 and hematocrit 47.9. MCV 91.3. MCH 32.0. Platelet count 453048. GFR greater than 60. Creatinine 1.0. Normal [...] with swallowing. Patient seen by ENT at [facility] and no intervention planned. Discussed repeat CT scan of the chest and will proceed with repeat in December 2022. discussed potential evaluation with Endocrinology due to thyromegaly. patient recently seen by CT surgery at [facility]. Previously has been evaluated by Cardiology at [facility] for congestive heart failure. Patient has decrease in ejection fraction and difficulty with hypertension. During the course of last few weeks patient has had blood pressure medication altered to help lower his blood pressure. Cardiac imaging performed at [facility] with concern for cardiac nodularity. Patient had biopsy of myocardium on December 15, 2022 at [facility]. Will follow-up pathology. CT scan of the chest performed on January 25, 2023 with comparison to imaging from May 13, 2020. Imaging performed at [facility]. No findings of axillary adenopathy. Small [...] thyromegaly. Patient was recently seen by Endocrinology [facility]. Patient reports having ultrasound of the [...] from Hematology Oncology perspective. Jose Mccracken MD [address], [place], [address], [place] 03/22/2023 15:13:00 11/06/2023 text/html CURRENT (11/06/23 Evelia Diaz): Ms. Kauffman is a 57-year-old male who was referred by Apolinar Mariscal for diverticulitis. The patient presented to [facility] with abdominal pain. CT scan performed on 10/06/2023 revealed sigmoid diverticulitis. He was started on antibiotics for treatment. He reports since that time he was started on antibiotics a second time as his lower abdominal pain had not subsided. He is still taking this round of antibiotics. He has an appointment with Dr. Landry at [facility] tomorrow for evaluation of his hernias found on CT scan at that time. 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 Repeat was recommended in 3 years. The patient reports he previously stopped his PPI therapy as he has minimal acid reflux symptoms. He denies nausea, vomiting, hematemesis, hematochezia or melena. BOUBACAR DIAZ MSN, WIRE FRAME LAMPSHADE MAKER, WATER FILTRATION TECHNICIAN-C [address], [place], [address], [place] 11/06/2023 16:37:59
--- OUTSIDE RECORDS SUMMARY | 2025-03-14 14:30 | XMS_ITS | Encounter Summary ---
Author Organization Healthcare Address [address] [place] [address] Care Team Providers Care Helpdesk Administrator Name Role Phone Delmer Fritz MD Primary Care Provider [phone] Antwan Esparza MD Primary Care Provider + [phone] Ángela Millard NET FRONT END DEVELOPER Unavailable [phone] Inna Serrano APRN Primary Care Provider + [phone] Encounter Details Date Type Department Care Team (Late st Contact Info) Description 08/27/2018 Orders Only External Location [address] [place] [address] Provider, External Social History Tobacco Use Types [...] Description 04/08/2025 12:00 PM EST Office Visit [facility] [address] [facility], [address] [place] [address] David Workman MD [address] [place] [address] 05/19/2025 1:00 PM EST Office Visit [facility] at [facility] [address] [place] [address] Leslie Suarez DO [address] [place] [address] 09/30/2025 10:10 AM EDT Appointment [facility] [address] [place] [address] 09/30/2025 11:30 AM EDT Office Visit [facility] [address] 2nd [place] [address] Aysha Crews MD [address] [place] [address] documented as of this encounter [...] on filedocumented in this encounter Care Teams Helpdesk Administrator Relationship Specialty Start Date End Date Delmer Fritz MD [address] [facility] [address] [place] [address] PCP - General 10/02/20 12/13/20 Antwan Esparza MD [address] [place] [address] PCP - General 12/14/20 02/18/24 Inna Serrano APRN [address] [place] [address] PCP - General 02/19/24 Ángela Millard APRN [address] [place] [address] Nurse Practitioner Neurosurgery 09/17/21 documented as of this encounter
--- OUTSIDE RECORDS SUMMARY | 2025-03-14 14:30 | XMS_ITS | Encounter Summary ---
Author Organization [facility] Address [address] [place] [address] Care Team Providers Care Basket Bottom Machine Operator Name Role Phone Antwan Esparza MD Primary Care Provider [phone] Ángela Millard GUEST RELATIONS RECEPTIONIST Unavailable [phone] Inna Serrano APRN Primary Care Provider + [phone] Encounter Details Date Type Department Care Team (Late Contact Info) Description 04/06/2022 Orders Only External Location [address] [place] [address] Petra Regalado [address] [id number] Social History Tobacco Use Types Packs/Day Years [...] Description 04/08/2025 12:00 PM EST Office Visit [facility] Nephrology, Bone & Mineral Metabolism [address] [facility], [address] [place] [address] David Workman MD [address] [place] [address] 05/19/2025 1:00 PM EST Office Visit [facility] [address] [place] [address] Adonis Morrison LeslieDO [address] [place] [address] 09/30/2025 10:10 AM EDT Appointment [facility] [address] [place] [address] 09/30/2025 11:30 AM EDT Office Visit [facility] [address]nd [place] [address] Aysha Crews MD [address] [facility] [address] [place] [address] documented as of this encounter Procedures Procedure Name Priority Date/Time Associated Diagnosis Comments MR MSK OUTSIDE IMAGES 04/06/2022 1:22 PM EST documented in this encounter Results * MR MSK OUTSIDE IMAGES (04/06/2022 1:22 PM EST) Anatomical Region Laterality Modality Magnetic Resonan ce 04/06/2022 1:22 PM EST Petra Regalado [facility] MRI PROCEDURES Final Result documented in this encounter Visit Diagnoses Not on filedocumented in this encounter Additional Health Concerns Assessment Noted Time A fall risk assessment has been complete d for the patient 01/31/2022 1:51 PM EDT documented as of this encounter Care Teams Basket Bottom Machine Operator Relationship Specialty Start Date End Date Atnwan Esparza MD [address] [place] [address] PCP - General 12/14/20 02/18/24 Inna Serrano APRN [address] [place] [address] PCP - General 02/19/24 Ángela Millard APRN [address] [place] [address] Nurse Practitioner Neurosurgery 09/17/21 documented as of this encounter
--- OUTSIDE RECORDS SUMMARY | 2025-03-14 14:30 | XMS_ITS | Encounter Summary ---
Author Organization Healthcare Address [address] [place] [address] Care Team Providers Care Banquet Prep Cook Name Role Phone Delmer Fritz MD Primary Care Provider [phone] Antwan Esparza MD Primary Care Provider + [phone] Ángela Millard FUNDRAISING DIRECTOR Unavailable [phone] Inna Serrano APRN Primary Care Provider + [phone] Encounter Details Date Type Department Care Team (Late st Contact Info) Description 03/19/2015 Orders Only External Location [address] [place] [address] Provider, External Social History Tobacco Use Types [...] Description 04/08/2025 12:00 PM EST Office Visit [facility] [place] [facility] & Mineral Metabolism [address] [facility], [address] [place] [address] David Workman MD [address] [place] [address] 05/19/2025 1:00 PM EST Office Visit Physical Medicine & Rehabilitation Clinic at [facility] [address] [place] [address] Leslie Suarez DO [address] [place] [address] 09/30/2025 10:10 AM EDT Appointment [facility] [address] [place] [address] 09/30/2025 11:30 AM EDT Office Visit [facility] [address] 2nd [place] [address] Aysha Crews MD [address] [place] [address] documented as of this encounter [...] on filedocumented in this encounter Care Teams Banquet Prep Cook Relationship Specialty Start Date End Date Delmer Fritz MD [address] [facility] [address] [place] [address] PCP - General 10/02/20 12/13/20 Antwan Esparza MD [address] [place] [address] PCP - General 12/14/20 02/18/24 Inna Serrano APRN [facility] [place] [address] PCP - General 02/19/24 Ángela Millard APRN [address] [facility] [address] [place] [address] Nurse Practitioner Neurosurgery 09/17/21 documented as of this encounter
--- OUTSIDE RECORDS SUMMARY | 2025-03-14 14:30 | XMS_ITS | Encounter Summary ---
Author Organization Healthcare Address [address] [place] [address] Care Team Providers Care Pneumatic Jacketer Name Role Phone Antwan Esparza MD Primary Care Provider + [phone] Ángela Millard MANAGER COMMUNICATION Unavailable [phone] Inna Serrano APRN Primary Care Provider + [phone] Encounter Details Date Type Department Care Team ([facility] Contact Info) Description 08/10/2021 Orders Only External Location [address] [place] [address] Provider, External Social History Tobacco Use Types [...] Upcoming Encounters Date Type Department Care Team ([facility] Contact Info) Description 04/08/2025 12:00 PM EST Office Visit [facility] Nephrology, Bone & Mineral Metabolism [address] [facility], [address] [place] [address] David Workman MD [address] [place] [address] 05/19/2025 1:00 PM EST Office Visit [facility] at [facility] [address] [place] [address] Adonis Prince LeslieDO [address] [place] [address] 09/30/2025 10:10 AM EDT Appointment [facility] [address] [place] [address] 09/30/2025 11:30 AM EDT Office Visit [facility] [address] [place] [address] Aysha Crews MD [address] [place] [address] documented as [...] documented as of this encounter Care Teams Pneumatic Jacketer Relationship Specialty Start Date End Date Antwan Esparza MD [address] [place] [address] PCP - General 12/14/20 02/18/24 Inna Serrano APRN [address] [place] [address] PCP - General 02/19/24 Ángela Millard APRN [address] [place] [address] Nurse Practitioner Neurosurgery 09/17/21 documented as of this encounter
--- OUTSIDE RECORDS SUMMARY | 2025-03-14 14:30 | XMS_ITS | Encounter Summary ---
Author Organization [facility] Address [address] [place] [address] Care Team Providers Care Studio Coordinator Name Role Phone Antwan Esparza MD Primary Care Provider [phone] Ángela Millard TIRE AND TUBE REPAIRER Unavailable [phone] Inna Serrano TIRE AND TUBE REPAIRER Primary Care Provider + [phone] Encounter Details Date Type Department Care Team (Late Contact Info) Description 07/06/2022 Orders Only External Location [address] [place] [address] Damien Childs MD [address] [place] [address] Social History Tobacco Use Types Packs/Day Years [...] Nephrology, Bone & Mineral Metabolism [address] [facility], [address] [place] [address] David Workman MD [address] [place] [address] 05/19/2025 1:00 PM EST Office Visit [facility] at [facility] [address] [address] Adonis Prince LeslieDO [address] [place] [address] 09/30/2025 10:10 AM EDT Appointment [facility] [address] [place] [address] 09/30/2025 11:30 AM EDT Office Visit [facility] [address] [place] [address] Aysha Crews MD [address] [place] [address] documented as of this encounter [...] documented as of this encounter Care Teams Studio Coordinator Relationship Specialty Start Date End Date Antwan Esparza MD [address] [place] [address] PCP - General 12/14/20 02/18/24 Inna Serrano APRN [address] [place] [address] PCP - General 02/19/24 Ángela Millard APRN [address] [place] [address] Nurse Practitioner Neurosurgery 09/17/21 documented as of this encounter
--- OUTSIDE RECORDS SUMMARY | 2025-03-14 14:30 | XMS_ITS | Encounter Summary ---
Author Organization Healthcare Address [address] [place] [address] Care Team Providers Care Collection Supervisor Name Role Phone Delmer Fritz MD Primary Care Provider [phone] Antwan Esparza MD Primary Care Provider + [phone] Ángela Millard PIT TANNER Unavailable [phone] Inna Serrano APRN Primary Care Provider + [phone] Encounter Details Date Type Department Care Team (Late st Contact Info) Description 07/30/2018 Orders Only External Location [address] [place] [address] Provider, External Social History Tobacco Use Types [...] Description 04/08/2025 12:00 PM EST Office Visit [facility] [place] [facility], [facility] Mineral Metabolism [address] [facility], [address] [place] [address] David Workman MD [address] [place] [address] 05/19/2025 1:00 PM EST Office Visit Physical Medicine & Rehabilitation Clinic at [facility] [address] [place] [address] Leslie Suarez DO [address] [place] [address] 09/30/2025 10:10 AM EDT Appointment [facility] [address] [place] [address] 09/30/2025 11:30 AM EDT Office Visit [facility] [address]nd [place] [address] Aysha Crews MD [address] [place] [address] documented as of this encounter [...] on filedocumented in this encounter Care Teams Collection Supervisor Relationship Specialty Start Date End Date Delmer Fritz MD [address] [facility] [address] [place] [address] PCP - General 10/02/20 12/13/20 Antwan Esparza MD [address] [place] [address] PCP - General 12/14/20 02/18/24 Inna Serrano APRN [facility] [place] [address] PCP - General 02/19/24 Ángela Millard APRN [address] [facility] [address] [place] [address] Nurse Practitioner Neurosurgery 09/17/21 documented as of this encounter
--- OUTSIDE RECORDS SUMMARY | 2025-03-14 14:30 | XMS_ITS | Encounter Summary ---
Author Organization Healthcare Address [address] [place] [address] Care Team Providers Care Green Ware Caster Name Role Phone Antwan Esparza MD Primary Care Provider + [phone] Ángela Millard MANAGER FURNITURE Unavailable [phone] Inna Serrano MANAGER FURNITURE Primary Care Provider [phone] Reason for Visit * Reason Onset Date Comments HCN - Patient Message 10/08/2021 Encounter Details Date Type Department Care Team (Late st Contact Info) Description 09/27/2021 Refill [facility] [address] [place] [address] Leslie Suarez, DO [address] [facility] [address] [place] [address] Chronic low back pain, unspecified [...] optimal time of day to reach caller: [phone] Note: Please do not reply to this [...] optimal time of day to reach caller: [phone] Note: Please do not reply to this [...] & Dosage: Hydrocodone Preferred Pharmacy & Location: [facility] Days of medication remaining (if under 3 days please aishwarya as urgent): 4 Best contact number and optimal time of day to reach caller: [phone] Additional comments/information from caller: Pt asked if [...] Description 04/08/2025 12:00 PM EST Office Visit [facility] Nephrology, Bone & Mineral Metabolism [address] [facility], [address] [place] [address] David Workman MD [address] [place] [address] 05/19/2025 1:00 PM EST Office Visit Physical Medicine & Rehabilitation Clinic at [facility] [address] [place] [address] Leslie Suarez DO [address] [place] [address] 09/30/2025 10:10 AM EDT Appointment [facility] [address] [place] [address] 09/30/2025 11:30 AM EDT Office Visit [facility] [address] [facility], 2nd [place] [address] Aysha Crews MD [address] [facility] [address] [place] [address] documented as of this encounter Visit Diagnoses Diagnosis Chronic low back pain, unspecified back pain laterality, unspecified whether sciatica present documented in this encounter Additional Health Concerns Assessment Noted Time A fall risk assessment has been complete d for the patient 09/17/2021 1:57 PM EDT documented as of this encounter Care Teams Green Ware Caster Relationship Specialty Start Date End Date Antwan Esparza MD [address] [place] [address] PCP - General 12/14/20 02/18/24 Inna Serrano APRN [address] [place] [address] PCP - General 02/19/24 Ángela Millard APRN [address] [place] [address] Nurse Practitioner Neurosurgery 09/17/21 documented as of this encounter
--- OUTSIDE RECORDS SUMMARY | 2025-03-14 14:30 | XMS_ITS | Encounter Summary ---
Author Organization Healthcare Address [address] [place] [address] Care Team Providers Care Maintenance Supervisor Mechanical Name Role Phone Delmer Fritz MD Primary Care Provider [phone] Antwan Esparza MD Primary Care Provider + [phone] Ángela Millard NURSING ADMIN Unavailable [phone] Inna Serrano APRN Primary Care Provider + [phone] Encounter Details Date Type Department Care Team (Late st Contact Info) Description 02/28/2020 Orders Only External Location [address] [place] [address] Provider, External Social History Tobacco Use Types [...] Description 04/08/2025 12:00 PM EST Office Visit [facility] [place] [facility] Bone & Mineral Metabolism [address] [facility], [address] [place] [address] David Workman MD [address] [place] [address] 05/19/2025 1:00 PM EST Office Visit Physical Medicine & Rehabilitation Clinic at [facility] [address] [place] [address] Leslie Suarez DO [address] [place] [address] 09/30/2025 10:10 AM EDT Appointment [facility] [address] [place] [address] 09/30/2025 11:30 AM EDT Office Visit [facility] [address] [place] [address] Aysha Crews MD [address] [place] [address] documented as of this encounter [...] on filedocumented in this encounter Care Teams Maintenance Supervisor Mechanical Relationship Specialty Start Date End Date Delmer Fritz MD [address] [facility] [address] [place] [address] PCP - General 10/02/20 12/13/20 Antwan Esparza MD [address] [place] [address] PCP - General 12/14/20 02/18/24 Inna Serrano APRN [address] [place] [address] PCP - General 02/19/24 Ángela Millard APRN [address] [place] [address] Nurse Practitioner Neurosurgery 09/17/21 documented as of this encounter
--- OUTSIDE RECORDS SUMMARY | 2025-03-14 14:30 | XMS_ITS | Encounter Summary ---
Author Organization Healthcare Address [address] [place] [address] Care Team Providers Care Licensed Optician Name Role Phone Delmer Fritz MD Primary Care Provider [phone] Antwan Epsarza MD Primary Care Provider + [phone] Ángela Millard SUPERVISOR Unavailable [phone] Inna Serrano APRN Primary Care Provider + [phone] Encounter Details Date Type Department Care Team (Late st Contact Info) Description 05/13/2020 Orders Only External Location [address] [place] [address] Provider, External Social History Tobacco Use Types [...] Description 04/08/2025 12:00 PM EST Office Visit [facility] [place] Nephrology, Bone & Mineral Metabolism [address] [facility], [address] [place] [address] David Workman MD [address] [place] [address] 05/19/2025 1:00 PM EST Office Visit [facility] at [facility] [address] [place] [address] Leslie Suarez DO [address] [place] [address] 09/30/2025 10:10 AM EDT Appointment [facility] [address] [place] [address] 09/30/2025 11:30 AM EDT Office Visit [facility] [address], 2nd [place] [address] Aysha Crews MD [address] [facility] [address] [place] [address] documented as of this encounter [...] on filedocumented in this encounter Care Teams Licensed Optician Relationship Specialty Start Date End Date Delmer Fritz MD [address] [facility] [address] [place] [address] PCP - General 10/02/20 12/13/20 Antwan Esparza MD 9 [place] [address] PCP - General 12/14/20 02/18/24 Inna Serrano APRN [facility] [place] [address] PCP - General 02/19/24 Ángela Millard APRN [address] [place] [address] Nurse Practitioner Neurosurgery 09/17/21 documented as of this encounter
--- OUTSIDE RECORDS SUMMARY | 2025-03-14 14:31 | XMS_ITS | Encounter Summary ---
Author Organization Healthcare Address [address] [place] [address] Care Team Providers Care Waiter Waitress Name Role Phone Antwan Esparza MD Primary Care Provider + [phone] Ángela Millard ROUTE DELIVERY CLERK Unavailable [phone] Inna Serrano ROUTE DELIVERY CLERK Primary Care Provider [phone] Encounter Details Date Type Department Care Team ([facility] Contact Info) Description 09/15/2023 Orders Only External Location [address] [place] [address] Idalia Torres, ROUTE DELIVERY CLERK [address] [place] [address] Social History Tobacco Use Types Packs/Day [...] Upcoming Encounters Date Type Department Care Team ([facility] Contact Info) Description 04/08/2025 12:00 PM EST Office Visit [facility] Nephrology, Bone & Mineral Metabolism [address] [facility], [address] [place] [address] David Workman MD [address] [place] [address] 05/19/2025 1:00 PM EST Office Visit [facility] [address] [place] [address] Leslie Suarez DO [address] [place] [address] 09/30/2025 10:10 AM EDT Appointment [facility] Radiology [address] [place] [address] 09/30/2025 11:30 AM EDT Office Visit [facility] Res[facility] [address] 2nd [place] [address] Aysha Crews MD [address] [facility] [address] [place] [address] documented as of this encounter Procedures Procedure Name Priority Date/Time Associated Diagnosis Comments US THYROID 09/15/2023 12:36 PM EDT documented in this encounter Results * US Thyroid (09/15/2023 12:36 PM EDT) Anatomical Region Laterality Modality Thyroid, Neck Ultrasound 09/15/2023 12:3 6 PM EDT us Idalia Torres APRN IM US PROCEDURES Final [...] documented as of this encounter Care Teams Waiter Waitress Relationship Specialty Start Date End Date Antwan Esparza MD [address] [place] [address] PCP - General 12/14/20 02/18/24 Inna Serrano APRN [address] [place] [address] PCP - General 02/19/24 Ángela Millard APRN [address] [place] [address] Nurse Practitioner Neurosurgery 09/17/21 documented as of this encounter
--- OUTSIDE RECORDS SUMMARY | 2025-03-14 14:31 | XMS_ITS | Encounter Summary ---
Author Organization [facility] Address [address] [place] [address] Care Team Providers Care Tactical Intelligence Officer Name Role Phone Antwan Esparza MD Primary Care Provider [phone] Ángela Millard ASSEMBLY TECHNICIAN Unavailable [phone] Inna Serrano APRN Primary Care Provider [phone] Encounter Details Date Type Department Care Team ([facility] Contact Info) Description 07/19/2023 Orders Only External Location [address] [place] [address] Andrew Borja, DO [address] [place], [place] [id number] Social History Tobacco Use Types Packs/Day Years [...] Upcoming Encounters Date Type Department Care Team ([facility] Contact Info) Description 04/08/2025 12:00 PM EST Office Visit [facility] Nephrology, Bone & Mineral Metabolism [address] [facility], [address] [place] [address] David Workman MD [address] [place] [address] 05/19/2025 1:00 PM EST Office Visit [facility] [address] [place] [address] Leslie Suarez DO [address] [place] [address] 09/30/2025 10:10 AM EDT Appointment [facility] [address] [place] [address] 09/30/2025 11:30 AM EDT Office Visit [facility] [address] 2nd [place] [address] Aysha Crews MD [address] [facility] [address] [place] [address] documented as of this encounter [...] documented as of this encounter Care Teams Tactical Intelligence Officer Relationship Specialty Start Date End Date Antwan Esparza MD [address] [place] [address] PCP - General 12/14/20 02/18/24 Inna Serrano APRN [address] [place] [address] PCP - General 02/19/24 Ángela Millard APRN [address] [place] [address] Nurse Practitioner Neurosurgery 09/17/21 documented as of this encounter
--- OUTSIDE RECORDS SUMMARY | 2025-03-14 14:31 | XMS_ITS | Encounter Summary ---
Author Organization [facility] Address [address] [place] [address] Care Team Providers Care Leave Coordinator Name Role Phone Antwan Esparza MD Primary Care Provider + [phone] Ángela Millard SURGICAL CODER Unavailable [phone] Inna Serrano SURGICAL CODER Primary Care Provider [phone] Reason for Visit * Reason Onset Date Comments HCN - Rx Refill Request 12/27/2021 Encounter Details Date Type Department Care Team (Late st Contact Info) Description 12/27/2021 Telephone Physical [facility] at [facility] [address] [place] [address] Leslie Suarez DO [address] [facility] [address] [place] [address] HCN - Rx Refill Request [...] Hydrocodone and diclofenac Preferred Pharmacy & Location: [facility] Days of medication remaining (if under 3 days please aishwarya as urgent): 5 Best contact number and optimal time of day to reach caller: [phone] Additional comments/information from caller: Note: Please do not reply to this message. Follow-up communication and further actions as a result of this message need to be communicated with the patient directly, if the patient is not active onMyChart. If the patient is active on MyChart, they will receive notification of the communication/outcome via PopUphart. documented in this encounter Plan of Treatment Upcoming Encounters Date Type Department Care Team ([facility] st Contact Info) Description 04/08/2025 12:00 PM EST Office Visit [facility] Nephrology, Bone & Mineral Metabolism [address] [facility], [address] [place] [address] David Workman MD [address] [place] [address] 05/19/2025 1:00 PM EST Office Visit [facility] [address] [place] [address] Leslie Suarez, [address] [place] [address] 09/30/2025 10:10 AM EDT Appointment [facility] Radiology [address] [place] [address] 09/30/2025 11:30 AM EDT Office Visit [facility] Res[facility] [address] [facility], 2nd [place] [address] Aysha Crews MD [address] [facility] [address] [place] [address] documented as of this encounter Visit Diagnoses Diagnosis Chronic low back pain, unspecified back pain laterality, unspecified whether sciatica present documented in this encounter Additional Health Concerns Assessment Noted Time A fall risk assessment has been complete d for the patient 11/01/2021 9:34 AM EDT documented as of this encounter Care Teams Leave Coordinator Relationship Specialty Start Date End Date Antwan Esparza MD [address] [place] [address] PCP - General 12/14/20 02/18/24 Inna Serrano APRN [address] [place] [address] PCP - General 02/19/24 Ángela Millard APRN [address] [place] [address] Nurse Practitioner Neurosurgery 09/17/21 documented as of this encounter
--- OUTSIDE RECORDS SUMMARY | 2025-03-14 14:31 | XMS_ITS | Encounter Summary ---
Author Organization Healthcare Address [address] [place] [id number] Care Team Providers Care Backpackers Manager Name Role Phone Ángela Millard CONTAINER REPAIRER Unavailable [phone] Inna Serrano CONTAINER REPAIRER Primary Care Provider [phone] Encounter Details Date Type Department Care Team (Late st Contact Info) Description 02/21/2025 Telephone [facility] [address], [address]nd [place] [address] Aysha Crews MD [address] [place] [address] Social History Tobacco Use Types [...] Telephone Encounter - Alison Jonas RN - 02/21/2025 11:21 AM EDT noted * Telephone Encounter - Marissa Cloud - 02/21/2025 10:19 AM EDT Per call to [facility], pt wanted to inform clinical team that pt was seen at [facility] in [facility] 02/17 and they placed a [address] scheduled for next year. [phone], documented in this encounter Plan of Treatment Upcoming Encounters Date Type Department Care Team (Late st Contact Info) Description 04/08/2025 12:00 PM EST Office Visit Professional [facility] Nephrology, Bone & Mineral Metabolism [address] [facility], [address] [place] [address] David Workman MD [address] [place] [address] 05/19/2025 1:00 PM EST Office Visit [facility] [address] [place] [address] Leslie Suarez DO [address] [place] [address] 09/30/2025 10:10 AM EDT Appointment [facility] Radiology [address] [place] [address] 09/30/2025 11:30 AM EDT Office Visit [facility] Head[facility] Neck & Respiratory [address] [facility], 2nd [place] [address] Aysha Crews MD [address] [facility] [address] [place] [address] documented as of this encounter Visit Diagnoses Not on filedocumented in this encounter Additional Health Concerns Assessment Noted Time A fall risk assessment has been complete d for the patient 02/20/2025 2:45 PM EDT A Body Mass Index follow-up plan has been documented for the patient 02/20/2025 3:10 PM EDT documented as of this encounter Care Teams Backpackers Manager Relationship Specialty Start Date End Date Inna Serrano APRN [address] [place] [address] PCP - General 02/19/24 Ángela Millard APRN [address] [facility] [address] [place] [address] Nurse Practitioner Neurosurgery 09/17/21 documented as of this encounter
--- OUTSIDE RECORDS SUMMARY | 2025-03-14 14:31 | XMS_ITS | Encounter Summary ---
Author Organization Healthcare Address [address] [place] [id number] Care Team Providers Care Shrimp Packer Name Role Phone Antwan Esparza MD Primary Care Provider + [phone] Ángela iMllard BOILER COVERER HELPER Unavailable [phone] Inna Serrano BOILER COVERER HELPER Primary Care Provider + [phone] Reason for Visit * Reason Onset Date Comments HCN - Rx Refill Request 05/30/2022 Encounter Details Date Type Department Care Team (Late st Contact Info) Description 05/30/2022 Refill PFE SCHEDULING [address] [place] [address] Leslie Suarez DO [address] [facility] [address] [place] [address] Chronic low back pain, unspecified back pain [...] needed for pain Preferred Pharmacy & Location: [facility] [phone] Days of medication remaining (if under 3 days please aishwarya as urgent): 0 Best contact number and optimal time of day to reach caller: [phone] Additional comments/information from caller: Note: Please do not reply to this message. Follow-up communication and further actions as a result of this message need to be communicated with the patient directly, if the patient is not active onMyChart. If the patient is active on MyChart, they will receive notification of the communication/outcome via RewardMe. documented in this encounter Plan of Treatment Upcoming Encounters Date Type Department Care Team (Late st Contact Info) Description 04/08/2025 12:00 PM EST Office Visit [facility] [employer] [place] Nephrology, Bone & Mineral Metabolism [address] [facility], [address] [place] [address] David Workman MD [address] [place] [address] 05/19/2025 1:00 PM EST Office Visit [facility] Rehabilitation [facility] at [facility] [address] [place] [address] Leslie Suarez DO [address] [place] [address] 09/30/2025 10:10 AM EDT Appointment [facility] Radiology [address] [place] [address] 09/30/2025 11:30 AM EDT Office Visit [facility] Head[facility] Neck [facility] Respiratory [address] [facility], 2nd [place] [address] Aysha Crews MD [address] [facility] [address] [place] [address] documented as of this encounter Visit Diagnoses Diagnosis Chronic low back pain, unspecified back pain laterality, unspecified whether sciatica present documented in this encounter Additional Health Concerns Assessment Noted Time A fall risk assessment has been complete d for the patient 04/25/2022 1:12 PM EST documented as of this encounter Care Teams Shrimp Packer Relationship Specialty Start Date End Date Antwan Esparza MD [address] [place] [address] PCP - General 12/14/20 02/18/24 Inna Serrano APRN [facility] [place] [address] PCP - General 02/19/24 Ángela Millard APRN [address] [place] [address] Nurse Practitioner Neurosurgery 09/17/21 documented as of this encounter
--- OUTSIDE RECORDS SUMMARY | 2025-03-14 14:31 | XMS_ITS | Encounter Summary ---
Author Organization [facility] Address [address] [place] [address] Care Team Providers Care Head Tennis Coach Name Role Phone Ángela Millard TECHNICAL DATA ANALYST Unavailable [phone] Inna Serrano APRN Primary Care Provider [phone] Encounter Details Date Type Department Care Team (Latest Contact Info) Description 02/20/2025 Travel Social History Tobacco Use Types Packs/Day [...] Questionnaire-2 Score 0 02/20/2025 2:45 PM EDT Toothaker, Arben ry M, NETWORKING ENGINEER * Calculated C-SSRS Risk Score (Lifetime/Recent) Answer [...] Gonzales LPN documented as of this encounter Plan of Treatment Upcoming Encounters Date Type Department Care Team (Late st Contact Info) Description 04/08/2025 12:00 PM EST Office Visit Professional [employer] [place] Nephrology, Bone & Mineral Metabolism [address] [facility], [address] [place] [address] David Workman MD [address] [place] [address] 05/19/2025 1:00 PM EST Office Visit [facility] at [facility] [address] [place] [address] Leslie Suarez DO [address] [facility] [address] [place] [address] 09/30/2025 10:10 AM EDT Appointment [facility] Radiology [address] [place] [address] 09/30/2025 11:30 AM EDT Office Visit [facility] Respiratory [address] [facility], 2nd [place] [address] Aysha Crews MD [address] [place] [address] documented as of this encounter Visit Diagnoses Not on filedocumented in this encounter Additional Health Concerns Assessment Noted Time A fall risk assessment has been complete d for the patient 02/20/2025 2:45 PM EDT A Body Mass Index follow-up plan has been documented for the patient 02/20/2025 3:10 PM EDT documented as of this encounter Care Teams Head Tennis Coach Relationship Specialty Start Date End Date Inna Serrano, TECHNICAL DATA ANALYST [address] [place] [address] PCP - General 02/19/24 Ángela Millard, TECHNICAL DATA ANALYST [address] [place] [address] Nurse Practitioner Neurosurgery 09/17/21 documented as of this encounter
--- OUTSIDE RECORDS SUMMARY | 2025-03-14 14:31 | XMS_ITS | Encounter Summary ---
Author Organization Healthcare Address [address] [place] [address] Care Team Providers Care Soloist Dancer Name Role Phone Ángela Millard FLUORESCENT LAMP REPLACER Unavailable Inna Serrano FLUORESCENT LAMP REPLACER Primary Care Provider [phone] Encounter Details Date Type Department Care Team (Late Contact Info) Description 09/02/2024 Orders Only External Location [address] [place] [address] Provider, External Social History Tobacco Use Types [...] 12:00 PM EST Office Visit Professional [facility] Nephrology, Bone & Mineral Metabolism [address] [facility], [address] [place] [address] David Workman MD [address] [place] [address] 05/19/2025 1:00 PM EST Office Visit [facility] [address] [place] [address] Leslie Suarez DO [address] [place] [address] 09/30/2025 10:10 AM EDT Appointment [facility] [address] [place] [address] 09/30/2025 11:30 AM EDT Office Visit [facility] [address], 2nd [place] [address] Aysha Crews MD [address] [place] [address] documented as of this encounter [...] documented as of this encounter Care Teams Soloist Dancer Relationship Specialty Start Date End Date Inna Serrano APRN [address] [place] [address] PCP - General 02/19/24 Ángela Millard APRN [address] [place] [address] Nurse Practitioner Neurosurgery 09/17/21 documented as of this encounter
--- OUTSIDE RECORDS SUMMARY | 2025-03-14 14:31 | XMS_ITS | Encounter Summary ---
Author Organization Healthcare Address [address] [place] [address] Care Team Providers Care Workers Compensation Manager Name Role Phone Ángela Millard TRACK GRINDER OPERATOR Unavailable [phone] Inna Serrano TRACK GRINDER OPERATOR Primary Care Provider [phone] Encounter Details Date Type Department Care Team (Late Contact Info) Description 08/08/2024 Orders Only External Location [address] [place] [address] Provider, External Social History Tobacco Use Types [...] 04/08/2025 12:00 PM EST Office Visit [facility] Nephrology, Bone & Mineral Metabolism [address] [facility], [address] [place] [address] David Workman MD [address] [place] [address] 05/19/2025 1:00 PM EST Office Visit [facility] [address] [place] [address] Leslie Suarez DO [address] [place] [address] 09/30/2025 10:10 AM EDT Appointment [facility] Radiology [address] [place] [address] 09/30/2025 11:30 AM EDT Office Visit [facility] [address], 2nd [place] [address] Aysha Crews MD [address] [place] [address] documented as of this encounter [...] documented as of this encounter Care Teams Workers Compensation Manager Relationship Specialty Start Date End Date Inna Serrano APRN [address] [place] [address] PCP - General 02/19/24 Ángela Millard APRN [address] [place] [address] Nurse Practitioner Neurosurgery 09/17/21 documented as of this encounter
--- OUTSIDE RECORDS SUMMARY | 2025-03-14 14:31 | XMS_ITS | Encounter Summary ---
Author Organization [facility] Address [address] [place] [address] Care Team Providers Care Oil House Attendant Name Role Phone Antwan Esparza MD Primary Care Provider [phone] Ángela Millard HEAVY EQUIPMENT SUPERVISOR Unavailable [phone] Inna Serrano APRN Primary Care Provider [phone] Encounter Details Date Type Department Care Team ([facility] Contact Info) Description 06/23/2023 Orders Only External Location [address] [place] [address] Andrew Borja, DO [address] [place], [place] [address] Social History Tobacco Use Types Packs/Day Years [...] Upcoming Encounters Date Type Department Care Team ([facility] Contact Info) Description 04/08/2025 12:00 PM EST Office Visit [facility] Nephrology, Bone & Mineral Metabolism [address] [facility], [address] [place] [address] David Workman MD [address] [place] [address] 05/19/2025 1:00 PM EST Office Visit [facility] [address] [place] [address] Leslie Suarez DO [address] [place] [address] 09/30/2025 10:10 AM EDT Appointment [facility] [address] [place] [address] 09/30/2025 11:30 AM EDT Office Visit [facility] Head[facility] Neck [facility] Respiratory [address] 2[address] [place] [address] Aysha Crews MD [address] [facility] [address] [place] [address] documented as of this encounter Procedures Procedure Name Priority Date/Time Associated Diagnosis Comments MR OUTSIDE IMAGES 06/23/2023 3:04 PM EST documented in this encounter Results * MR transfer of outside films (06/23/2023 3:04 PM EST) Anatomical Region Laterality Modality Magnetic Resonan ce 06/23/2023 3:04 PM EST Andrew Borja DO IMG MRI PROCEDURES Final Result documented in this encounter Visit Diagnoses Not on filedocumented in this encounter Additional Health Concerns Assessment Noted Time A fall risk assessment has been complete d for the patient 06/21/2023 3:11 PM EST A Body Mass Index follow-up plan has been documented for the patient 06/23/2023 5:09 PM EST documented as of this encounter Care Teams Oil House Attendant Relationship Specialty Start Date End Date Antwan Esparza MD [address] [place] [address] PCP - General 12/14/20 02/18/24 Inna Serrano APRN [address] [place] [address] PCP - General 02/19/24 Ángela Millard APRN [address] [place] [address] Nurse Practitioner Neurosurgery 09/17/21 documented as of this encounter
--- OUTSIDE RECORDS SUMMARY | 2025-03-14 14:31 | XMS_ITS | Encounter Summary ---
Author Organization Healthcare Address [address] [place] [address] Care Team Providers Care Senior Strategy Analyst Name Role Phone Ángela Millard STATOR WINDER Unavailable [phone] Inna Serrano APRN Primary Care Provider [phone] Reason for Visit * Reason Onset Date Comments Med Refill 03/11/2025 Encounter Details Date Type Department Care Team (Late st Contact Info) Description 03/11/2025 Refill [facility] at [facility] [address] [place] [address] Leslie Suarez DO [address] [facility] [address] [place] [address] Social History Tobacco Use Types [...] [facility] [address] [place] [address] David Workman MD [address] [place] [address] 05/19/2025 1:00 PM EST Office Visit [facility] [address] [place] [address] Leslie Suarez DO [address] [place] [address] 09/30/2025 10:10 AM EDT Appointment [facility] Radiology [address] [place] [address] 09/30/2025 11:30 AM EDT Office Visit [facility] Head, Neck & Respiratory [address] [facility], 2nd [place] [address] Aysha Crews MD [address] [place] [address] documented as of this encounter Visit Diagnoses Not on filedocumented in this encounter Additional Health Concerns Assessment Noted Time A fall risk assessment has been complete d for the patient 02/20/2025 2:45 PM EDT A Body Mass Index follow-up plan has been documented for the patient 02/20/2025 3:10 PM EDT documented as of this encounter Care Teams Senior Strategy Analyst Relationship Specialty Start Date End Date Inna Serrano APRN [address] [place], [place] [id number] PCP - General 02/19/24 Ángela Millard APRN [address] [place] [address] Nurse Practitioner Neurosurgery 09/17/21 documented as of this encounter
--- OUTSIDE RECORDS SUMMARY | 2025-03-14 14:31 | XMS_ITS | Encounter Summary ---
Author Organization [facility] Address [address] [place] [address] Care Team Providers Care Accounts Receivable Analyst Name Role Phone Ángela Millard BLOOD BANK TECHNICIAN Unavailable [phone] Inna Serrano APRN Primary Care Provider [phone] Reason for Visit * Reason Onset Date Comments HCN Clinical Concern/Question 02/18/2025 Encounter Details Date Type Department Care Team ([facility] st Contact Info) Description 02/18/2025 Telephone [facility] Nephrology, Bone & Mineral Metabolism [address] [facility], [address] [place] [address] David Workman MD [address] [place] [address] HCN Clinical Concern/Question Social History [...] Miscellaneous Notes * Telephone Encounter - Mandie Olsen PharmD - 02/21/2025 10:15 AM EDT Returned call to patient. He reports cardiology took him off of amlodipine and he is still taking nifedipine. He reports BP yesterday at 140/76. Advised him to keep checking BP at home and pharmD will follow up with patient in a few weeks to reassess. Mandie Olsen PharmD, BCACP Clinical Pharmacist Nephrology, Bone & Mineral Metabolism Clinic [facility] [place] [address] * Telephone Encounter - Cecilia Hernandez S - 02/20/2025 11:33 AM EDT Patient Phone Message Reason for Call: Pt is asking Mandie to call him back to discuss his medication more Best contact number and optimal time of day to reach caller: [phone] Note: Please do not reply to this message. Follow-up communication and further actions as a result of this message need to be communicated with the patient directly, if the patient is not active onMyChart. If the patient is active on MyChart, they will receive notification of the communication/outcome via [employer]. * Telephone Encounter - Mandie Olsen PharmD - 02/18/2025 11:37 AM EDT Spoke with patient over the phone after reviewing note from cardiology visit at on 02/17. Appearspatient was started on Amlodipine 5mg after heart catch and per medication list in note, Nifedipinewas not listed as current medication. Called and discussed with patient who reports he was not instructed to stop Nifedipine. Discussed amlodipine and nifedipine are in the same medication class and would not recommend for him to be on both. Advised patient to alert cost control supervisor that he has been taking Nifedipine 90mg daily and discuss if cardiology wishes for him to be on Nifedipine vs Amlodipine. Patient also voiced cost control supervisor informed him swelling LE is due to his kidneys and not his heart. Will alert Dr. Workman and PharmD will follow up with patient in a couple weeks to reassess BP. Mandie Olsen PharmD, BCACP Clinical Pharmacist Nephrology, Bone & Mineral Metabolism Clinic [facility] [place] [address] * Telephone Encounter - Claudia Griffin - 02/18/2025 11:06 AM EDT Patient Phone Message Reason for Call: Pt wants to inform Dr. Workman that he had stents placed in his heart, had labs completed at [facility], and was placed on a lifelong medication. Best contact number and optimal time of day to reach caller: [phone] Note: Please do not reply to this [...] Description 04/08/2025 12:00 PM EST Office Visit [facility] Nephrology, Bone & Mineral Metabolism [address] [facility], [address] [place] [address] David Workman MD [address] [place] [address] 05/19/2025 1:00 PM EST Office Visit Physical Medicine & Rehabilitation Clinic at [facility] [address] [place] [address] Leslie Suarez DO [address] [place] [address] 09/30/2025 10:10 AM EDT Appointment [facility] Radiology [address] [place] [address] 09/30/2025 11:30 AM EDT Office Visit [facility] Head[facility] Neck & Respiratory [address] [facility], 2nd [place] [address] Aysha Crews MD [address] [facility] [address] [place] [address] documented as of this encounter Visit Diagnoses Not on filedocumented in this encounter Additional Health Concerns Assessment Noted Time A fall risk assessment has been complete d for the patient 01/08/2025 1:58 PM EDT A Body Mass Index follow-up plan has been documented for the patient 01/08/2025 3:33 PM EDT documented as of this encounter Care Teams Accounts Receivable Analyst Relationship Specialty Start Date End Date Inna Serrano APRN [address] [place] [address] PCP - General 02/19/24 Ángela Millard APRN [address] [place] [address] Nurse Practitioner Neurosurgery 09/17/21 documented as of this encounter
--- OUTSIDE RECORDS SUMMARY | 2025-03-14 14:31 | XMS_ITS | Encounter Summary ---
Author Organization [facility] Address [address] [place] [address] Care Team Providers Care Ash Handler Name Role Phone Ángela Millard DIRECTOR PROCESS IMPROVEMENT Unavailable [phone] Inna Serrano APRN Primary Care Provider [phone] Encounter Details Date Type Department Care Team ([facility] st Contact Info) Description 03/05/2025 Telephone [facility] Nephrology, Bone & Mineral Metabolism [address] [facility], [address] [place] [address] David Workman MD [address] [place] [address] Social History Tobacco Use Types [...] * Telephone Encounter - Nanette Sandra - 03/05/2025 10:34 AM EDT Clinical Concern/Question Reason for Call: Pt called to let Dr Workman know that he is having a doppler on his legs and neck on03/14/25 at [facility]. Best contact number: [phone] (home) Optimal time of day to reach caller: ANYTIME Additional comments/information from caller: No callback needed Note: Please do not reply to this [...] Upcoming Encounters Date Type Department Care Team ([facility] Contact Info) Description 04/08/2025 12:00 PM EST Office Visit [facility] Nephrology, Bone & Mineral Metabolism [address] [facility], [address] [place] [address] David Workman MD [address] [place] [address] 05/19/2025 1:00 PM EST Office Visit [facility] [address] [place] [address] Leslie Suarez, [address] [place] [address] 09/30/2025 10:10 AM EDT Appointment [facility] Radiology [address] [place] [address] 09/30/2025 11:30 AM EDT Office Visit [facility] Head[facility] Neck & Respiratory [address] [facility], 2nd [place] [address] Aysha Crews MD [address] [facility] [address] [place] [address] documented as of this encounter Visit Diagnoses Not on filedocumented in this encounter Additional Health Concerns Assessment Noted Time A fall risk assessment has been complete d for the patient 02/20/2025 2:45 PM EDT A Body Mass Index follow-up plan has been documented for the patient 02/20/2025 3:10 PM EDT documented as of this encounter Care Teams Ash Handler Relationship Specialty Start Date End Date Inna Serrano APRN [address] [place] [address] PCP - General 02/19/24 Ángela Millard APRN [address] [place] [address] Nurse Practitioner Neurosurgery 09/17/21 documented as of this encounter
--- OUTSIDE RECORDS SUMMARY | 2025-03-14 14:31 | XMS_ITS | Encounter Summary ---
Author Organization Healthcare Address [address] [place] [address] Care Team Providers Care Slitter Processed Film Name Role Phone Ángela Millard ENVIRONMENTAL COORDINATOR Unavailable [phone] Inna Serrano APRN Primary Care Provider [phone] Encounter Details Date Type Department Care Team (Latest Contact Info) Description 02/15/2025 Travel Social History Tobacco Use Types Packs/Day [...] 04/08/2025 12:00 PM EST Office Visit [facility] Nephrology, Bone & Mineral Metabolism [address] [facility], [address] [place] [address] David Workman MD [address] [place] [address] 05/19/2025 1:00 PM EST Office Visit Physical Medicine & Rehabilitation Clinic at [facility] [address] [place] [address] Leslie Suarez DO [address] [place] [address] 09/30/2025 10:10 AM EDT Appointment [facility] Radiology [address] [place] [address] 09/30/2025 11:30 AM EDT Office Visit [facility] Head[facility] Neck & Respiratory [address] , [address] [place] [address] Aysha Crews MD [address] [place] [address] documented as of this encounter Visit Diagnoses Not on filedocumented in this encounter Additional Health Concerns Assessment Noted Time A fall risk assessment has been complete d for the patient 01/08/2025 1:58 PM EDT A Body Mass Index follow-up plan has been documented for the patient 01/08/2025 3:33 PM EDT documented as of this encounter Care Teams Slitter Processed Film Relationship Specialty Start Date End Date Inna Serrano APRN [address] [place] [address] PCP - General 02/19/24 Ángela Millard APRN [address] [place] [address] Nurse Practitioner Neurosurgery 09/17/21 documented as of this encounter
--- OUTSIDE RECORDS SUMMARY | 2025-03-14 14:31 | XMS_ITS | Encounter Summary ---
Author Organization Healthcare Address [address] [place] [address] Care Team Providers Care Sole Rougher Name Role Phone Antwan Esparza MD Primary Care Provider [phone] Ángela Millard GROUP SUPERVISOR YARD Unavailable [phone] Inna Serrano GROUP SUPERVISOR YARD Primary Care Provider [phone] Reason for Visit * Reason Onset Date Comments HCN - Rx Refill Request 04/11/2022 Encounter Details Date Type Department Care Team (Late st Contact Info) Description 04/11/2022 Refill [facility] [address] [place] [address] Leslie Suarez DO [address] [facility] [address] [place] [address] Chronic low back pain, unspecified [...] Notes * Telephone Encounter - Germaine Hart David - 04/11/2022 10:37 AM EST Medication Refill Request Medication Name & Dosage: Hydrocodone-acetaminophen 5-325MG Preferred Pharmacy & Location: [facility] [place] Days of medication remaining (if under 3 days please aishwarya as urgent): 7 days Best contact number and optimal time of day to reach caller: [phone] Additional comments/information from caller: Note: Please do not reply to this message. Follow-up communication and further actions as a result of this message need to be communicated with the patient directly, if the patient is not active onMyChart. If the patient is active on MyChart, they will receive notification of the communication/outcome via [employer]. documented in this encounter Plan of Treatment Upcoming Encounters Date Type Department Care Team (Late st Contact Info) Description 04/08/2025 12:00 PM EST Office Visit [facility] Nephrology, Bone & Mineral Metabolism [address] [facility], [address] [place] [address] David Workman MD [address] [place] [address] 05/19/2025 1:00 PM EST Office Visit [facility] & Rehabilitation Clinic at [facility] [address] [place] [place] [address] Leslie Suarez DO [address] [facility] [address] [place] [address] 09/30/2025 10:10 AM EDT Appointment [facility] Radiology [address] [place] [address] 09/30/2025 11:30 AM EDT Office Visit [facility] Head[facility] Neck & Respiratory [address] [facility], 2nd [place] [address] Aysha Crews MD [address] [facility] [address] [place] [address] documented as of this encounter Visit Diagnoses Diagnosis Chronic low back pain, unspecified back pain laterality, unspecified whether sciatica present- Primary documented in this encounter Additional Health Concerns Assessment Noted Time A fall risk assessment has been complete d for the patient 01/31/2022 1:51 PM EDT documented as of this encounter Care Teams Sole Rougher Relationship Specialty Start Date End Date Antwan Esparza MD [address] [place], [place] [id number] PCP - General 12/14/20 02/18/24 Inna Serrano APRN [facility] [place] [address] PCP - General 02/19/24 Ángela Millard APRN [address] [place] [address] Nurse Practitioner Neurosurgery 09/17/21 documented as of this encounter
--- OUTSIDE RECORDS SUMMARY | 2025-03-14 14:31 | XMS_ITS | Encounter Summary ---
Author Organization Healthcare Address [address] [place] [address] Care Team Providers Care Light Industrial Name Role Phone Ángela Millard DUSTLESS OPERATOR Unavailable [phone] Inna Serrano APRN Primary Care Provider [phone] Reason for Visit * Reason Onset Date Comments HCN - Patient Message 03/05/2025 Encounter Details Date Type Department Care Team (Late st Contact Info) Description 03/05/2025 Telephone Physical [facility] at [facility] [address] [facility] [place] [address] Leslie Suarez DO [address] [facility] [address] [place] [address] HCN - Patient Message [...] Telephone Encounter - Leslie Suarez DO - 03/05/2025 12:54 PM EDT Ok noted thank you for the update. * Telephone Encounter - Macy Green - 03/05/2025 10:29 AM EDT Clinical Concern/Question Reason for Call: Dr. Morrison pt. This pt wanted to let Dr. Morrison know that he is having an US done on his legs and neck. He does not need a call back. Best contact number: [phone] (mobile) Optimal time of day to reach caller: ANYTIME Additional comments/information from caller: None Note: Please do not reply to this message. Follow-up communication and further actions as a result of this message need to be communicated with the patient directly, if the patient is not active onMyChart. If the patient is active on MyChart, they will receive notification of the communication/outcome via [employer]. documented in this encounter Plan of Treatment Upcoming Encounters Date Type Department Care Team (Late st Contact Info) Description 04/08/2025 12:00 PM EST Office Visit [facility] Nephrology, Bone & Mineral Metabolism [address] [facility], [address] [place] [address] David Workman MD [address] [place] [address] 05/19/2025 1:00 PM EST Office Visit [facility] [address] [place] [address] Leslie Suarez DO [address] [place] [address] 09/30/2025 10:10 AM EDT Appointment [facility] Radiology [address] [place] [address] 09/30/2025 11:30 AM EDT Office Visit [facility] Head[facility] Neck & Respiratory [address] 2[address] [place] [address] Aysha Crews MD [address] [place] [address] documented as of this encounter Visit Diagnoses Not on filedocumented in this encounter Additional Health Concerns Assessment Noted Time A fall risk assessment has been complete d for the patient 02/20/2025 2:45 PM EDT A Body Mass Index follow-up plan has been documented for the patient 02/20/2025 3:10 PM EDT documented as of this encounter Care Teams Light Industrial Relationship Specialty Start Date End Date Inna Serrano APRN [address] [place] [address] PCP - General 02/19/24 Ángela Millard, BELINDA [address] [place] [address] Nurse Practitioner Neurosurgery 09/17/21 documented as of this encounter
--- OUTSIDE RECORDS SUMMARY | 2025-03-14 14:32 | XMS_ITS | Clinical Summary ---
Author Organization [facility] Address [address] [place] [address] Care Team Providers Care Commutator Tester Name Role Phone Ángela Millard OPERATIONS RESEARCH SCIENTIST Unavailable Inna Serrano OPERATIONS RESEARCH SCIENTIST Primary Care Provider [phone] Allergies Active Allergy Reactions Criticality Noted Date Comments Albuterol Other - please document in the comment field Low 01/11/2024 Amlodipine Swelling High 02/20/2025 Cholestatin Other - please document in the [...] a day. 90 tablet 3 5 Active aspirin 81 MG EC tablet Take 1 tablet by mouth daily. 5 Active bumetanide (Bumex) 1 MG tablet Take 1 tablet by mouth 2 times a day. 5 Active doxazosin (Cardura) 4 MG tablet Take 1 tablet by mouth nightly. Active diclofenac (Voltaren) 1 % topical gel as needed. Active sacubitril-vals diane (Entresto) 97-103 MG tablet Take 1 tablet by mouth twice a day. Active HYDROcodone-nelida taminophen ([place]) 5-325 MG tablet Take 1 tablet by mouth every 6 hours as needed for severe pain. 120 tablet 5 Active HYDROcodone-nelida taminophen ([place]) 5-325 MG tablet Take 1 tablet by mouth every 6 hours as needed for severe pain. 120 tablet 5 03/11/20 25 Discontinu ed(Reorder ) Active Problems Problem Noted Date Diagnosed Date Tobacco use disorder 09/24/2024 Second hand smoke exposure 09/24/2024 Chronic back pain 08/21/2018 Elbow pain 08/17/2017 Resolved Problems Problem Noted Date Diagnosed Date Resolved Date DJD (degenerative joint disease) 05/12/2014 02/09/2025 Encounters Date Type Department Care Team Description 03/11/2025 Refill [facility] [address] [place] [address] Leslie Suarez DO 03/05/2025 Telephone Professional [facility] Nephrology, Bone & Mineral Metabolism [address] [facility], [address] [place] [address] David Workman MD 03/05/2025 Telephone [facility] [address] [place] [address] Leslie Suarez DO HCN - Patient Message 02/21/2025 Telephone [facility] Head[facility] Neck & Respiratory [address] [facility] 2nd [place] [address] Aysha Crews MD 02/20/2025 2:30 PM EDT Office Visit [facility] [address] [place] [address] Leslie Suarez, Chronic bilateral low back pain without sciatica (Primary Dx) 02/20/2025 Travel 02/18/2025 Telephone [facility] Nephrology, Bone & Mineral Metabolism [address] [facility], [address] [place] [address] David Workman MD HCN Clinical Concern/Question 02/15/2025 Travel 02/11/2025 Telephone [facility] Nephrology, Bone & Mineral Metabolism [address] [facility], [address] [place] [address] Mandie Olsen, PharmD 02/10/2025 Refill [facility] [address] [place] [address] [place] [address] Dee Dee Jenkins MD 02/05/2025 Telephone [facility] [address] [place] [address] Leslie Suarez DO HCN Status Update Call #1 02/03/2025 Telephone [facility] Head[facility] Neck & Respiratory [address] [facility], 2nd [place] [address] Aysha Crews MD 02/03/2025 Telephone [facility] [address] [place] [address] Leslie Suarez DO HCN - Patient Message 02/03/2025 Telephone [facility] Nephrology, Bone & Mineral Metabolism [address] [facility], [address] [place] [address] David Workman MD HCN - Patient Message 01/27/2025 Telephone Professional [facility] Nephrology, Bone & Mineral Metabolism [address], [address] [place] [address] David Workman MD 01/24/2025 Telephone [facility] [employer] [facility] Nephrology, Bone & Mineral Metabolism [address], [address] [place] [address] David Workman MD 01/22/2025 Telephone Professional [facility] Nephrology, Bone & Mineral Metabolism [address], [address] [place] [address] David Workman MD HCN Clinical Concern/Question 01/21/2025 Telephone [facility] [address] [address] Leslie Suarez DO HCN - Patient Message 01/15/2025 Telephone [facility] [address] [place] [address] Leslie Suarez DO HCN - Patient Message 01/14/2025 Telephone Professional [facility] Nephrology, Bone & Mineral Metabolism [address], [address] [place] [address] David Workman MD HCN - Patient Message 01/09/2025 Telephone Professional [facility] Nephrology, Bone & Mineral Metabolism [address], [address] [place] [address] David Workman MD HCN - Patient Message 01/08/2025 2:00 PM EDT Office Visit [facility] Nephrology, Bone & Mineral Metabolism [address], [address] [place] [address] David Workman MD CKD stage 3a, GFR 45-59 ml/min (CMS/HCC) (Primary Dx) 01/08/2025 Telephone [facility] [address] [place] [address] Leslie Suarez DO HCN Status Update Call #2 01/08/2025 Travel 01/01/2025 Travel 12/30/2024 Telephone Professional [facility] Nephrology, Bone & Mineral Metabolism [address], [address] [place] [address] David Workman MD 12/23/2024 Telephone Professional [facility] Nephrology, Bone & Mineral Metabolism [address], [address] [place] [address] Greta Elliott MD HCN Clinical Concern/Question 12/19/2024 Orders Only [facility] [address] [address] Leslie Suarez DO High risk medication use (Primary Dx) 12/19/2024 Telephone [facility] [address] [address] Leslie Suarez DO HCN - Patient Message 12/19/2024 Telephone Professional [facility] Nephrology, Bone & Mineral Metabolism [address], [address] [place] [address] David Workman MD HCN Clinical Concern/Question 12/19/2024 Travel 12/13/2024 Refill [facility] [address] [address] Leslie Suarez DO 12/13/2024 Telephone Professional [facility] Nephrology, Bone & Mineral Metabolism [address], [address] [place] [address] HCN - Patient Message 12/13/2024 Refill [facility] [address] [place] [address] Leslie Suarez DO from Last [...] 2:39 PM EDT Princess e reading Pulse 71 01/08/2025 1:59 PM EDT Temperature 36.8 C (98.3 F) 01/08/2025 1:59 PM EDT Respiratory Rate 18 09/24/2024 10:16 AM EDT Oxygen Saturation 95% 01/08/2025 1:59 PM EDT Inhaled Oxygen Concentration - - Weight 105 kg (232 lb) 02/20/2025 2:39 PM EDT Height 182.9 cm (6') 02/20/2025 2:39 PM EDT Body Mass Index 31.46 02/20/2025 2:39 PM EDT Plan of Treatment Upcoming Encounters Date Type Department Care Team (Late st Contact Info) Description 04/08/2025 12:00 PM EST Office Visit Professional [employer] [facility] Nephrology, Bone & Mineral Metabolism [address] [facility], [address] [place] [address] David Workman MD [address] [place] [address] 05/19/2025 1:00 PM EST Office Visit [facility] [address] [place] [place] [address] Leslie Suarez DO [address] [place] [address] 09/30/2025 10:10 AM EDT Appointment [facility] Radiology [address] [place] [phone] 09/30/2025 11:30 AM EDT Office Visit [facility] Head, Neck & Respiratory [address] 2nd [place] [address] Aysha Crews MD [address] [facility] [address] [place] [id number] Health Maintenance Due Date Last Done Comments [...] PPSV23, PCV20, or PCV21) 04/01/2024 02/05/2024, 05/23/2018 [id number] Vaccine (1 - season) 2025 [facility]-Influenza Vaccine (#1) 2025 03/01/2011 [facility]-Depression Screening 02/20/2026 02/20/2025 [facility]-Obesity Intervention Completed 025, 01/08/2025, 11/11/2024, Additional history exists HPV Vaccines Aged Out [...] use from Last 3 Months Results * [place] Lambda Quant Free Light Chains w/Ratio (01/08/2025 3:44 PM EDT) [place] Lambda Free Light Chain Ratio 0.98 0.26 - 1.65 Ratio 01/09/2025 9:12 AM EDT [facility] [place] Quant Free Light Chains 18.92 3.30 - 19.40 mg/L 01/09/2025 9:12 AM EDT [facility] Lambda Quant Free Light Chains 19.21 5.71 - 26.30 mg/L 01/09/2025 9:12 AM EDT [facility] Blood Venous blood specimen / Unknown Venipuncture / Unknown 01/08/2025 3:44 PM EDT 01/08/2025 3:44 PM EDT Narrative [facility] - 01/09/2025 9:12 AM EDT [...] with the testing laboratory. Test performed at [facility],Special Chemistry Laboratory. us David Workman MD LAB BLOOD ORDERABLES Final Resul t Performing Organization Address [facility] Co de Phone Number [facility] [address] [place] [address] * Total Protein, Serum (01/08/2025 3:44 PM EDT) Total Protein 6.9 6.2 - 7.7 g/dL 01/08/2025 5:58 PM EDT [facility] Blood Venous blood specimen / Unknown Venipuncture / Unknown 01/08/2025 3:44 PM EDT 01/08/2025 3:44 PM EDT us David Workman MD LAB BLOOD ORDERABLES Final Resul t Performing Organization Address City/[facility]/ZIP Co de Phone Number [facility] [address] [place] [address] * Protein Electrophoresis, Serum (01/08/2025 3:44 PM EDT) Albumin Electrophoresis, Serum 4.1 3.6 - 4.7 g/dL 01/09/2025 2:51 AM EDT [facility] Alpha 1 Globulin Electrophoresis, Serum 0.4 0.2 - 0.4 g/dL 01/09/2025 2:51 AM EDT [facility] Alpha 2 Globulin Electrophoresis, Serum 0.8 0.5 - 0.9 g/dL 01/09/2025 2:51 AM EDT [facility] Beta 1 Globulin Electrophoresis, Serum 0.4 0.3 - 0.5 g/dL 01/09/2025 2:51 AM EDT [facility] Beta 2 Globulin Electrophoresis, Serum 0.4 0.2 - 0.5 g/dL 01/09/2025 2:51 AM EDT [facility] Gamma Globulin Electrophoresis, Serum 0.9 0.6 - 1.5 g/dL 01/09/2025 2:51 AM EDT [facility] Interpretation, Serum Protein Electrophoresis Pathology report to follow. 01/09/2025 2:51 AM EDT [facility] Blood Venous blood specimen / Unknown Venipuncture / Unknown 01/08/2025 3:44 PM EDT 01/08/2025 3:44 PM EDT David Workman MD LAB BLOOD ORDERABLES Final Resul t [facility] [address] [place] [address] * Protein electrophoresis serum, pathologist interpretation (01/08/2025 3:44 PM EDT) Clinical Diagnosis, SPEP CKD stage 3a 01/09/2025 11:33 AM EDT [facility] Interpretation , SPEP There are no significant abnormalities in the protein electrophoretic pattern. A resident was involved in the service. I attest I examined the relevant preparations for the specimens and confirmed the diagnosis or interpretation. 01/09/2025 11:33 AM EDT [facility] Pathologist Signature, SPEP Reviewed by: Cory Valenzuela MD 01/09/2025 11:33 AM EDT [facility] LAB CP ASR DISCLAIMER Yes 01/09/2025 11:33 AM EDT [facility] Blood Venous blood specimen / Unknown Venipuncture / Unknown 01/08/2025 3:44 PM EDT 01/08/2025 3:44 PM EDT David Workman MD LAB PATHOLOGY ORDERABLES Final R esult Performing Organization Address City/[facility]/ZIP Co de Phone Number [facility] [address] [place] [address] * Vitamin D 25 Hydroxy (01/08/2025 3:44 PM EDT) Vitamin D 25 Hydroxy 20.2 20.0 - 80.0 ng/mL 01/08/2025 8:13 PM EDT [facility] Blood Venous blood specimen / Unknown Venipuncture / Unknown 01/08/2025 3:44 PM EDT 01/08/2025 3:44 PM EDT Narrative [facility] - 01/08/2025 8:13 PM EDT Testing performed on [employer], standardized against NIST SRM [id number]. When testing [...] ORDERABLES Final Resul t Performing Organization Address City/[facility]/ZIP Co de Phone Number [facility] [address] [place] [address] * (ABNORMAL) CBC and Differential (01/08/2025 3:44 PM EDT) WBC Count 9.82 3.70 - 10.30 10*3/uL LAB HEMATOLOGY METHOD 01/08/2025 5:22 PM EDT [facility] RBC Count 5.41 4.60 - 6.10 10*6/uL LAB HEMATOLOGY METHOD 01/08/2025 5:22 PM EDT [facility] HGB 17.0 13.7 - 17.5 g/dL LAB HEMATOLOGY METHOD 01/08/2025 5:22 PM EDT [facility] HCT 49.6 40.0 - 51.0 % LAB HEMATOLOGY METHOD 01/08/2025 5:22 PM EDT [facility] Platelet Count 152(L) 155 - 369 10*3/uL LAB HEMATOLOGY METHOD 01/08/2025 5:22 PM EDT [facility] MCV 92 79 - 98 fL LAB HEMATOLOGY METHOD 01/08/2025 5:22 PM EDT [facility] MCH 31.4 26.0 - 32.0 pg LAB HEMATOLOGY METHOD 01/08/2025 5:22 PM EDT [facility] MCHC 34.3 30.7 - 35.5 g/dL LAB HEMATOLOGY METHOD 01/08/2025 5:22 PM EDT [facility] RDW 12.1 11.5 - 14.5 % LAB HEMATOLOGY METHOD 01/08/2025 5:22 PM EDT [facility] MPV 12.4 8.8 - 12.5 fL LAB HEMATOLOGY METHOD 01/08/2025 5:22 PM EDT [facility] nRBC 0.0 <=0.0 per 100 WBCs LAB HEMATOLOGY METHOD 01/08/2025 5:22 PM EDT [facility] Differential Type Automated LAB HEMATOLOGY METHOD 01/08/2025 5:22 PM EDT [facility] Neutrophils % 66 % LAB HEMATOLOGY METHOD 01/08/2025 5:22 PM EDT [facility] Lymphocytes % 24 % LAB HEMATOLOGY METHOD 01/08/2025 5:22 PM EDT [facility] Monocytes % 7 % LAB HEMATOLOGY METHOD 01/08/2025 5:22 PM EDT [facility] Eosinophils % 2 % LAB HEMATOLOGY METHOD 01/08/2025 5:22 PM EDT [facility] Basophils % 1 % LAB HEMATOLOGY METHOD 01/08/2025 5:22 PM EDT [facility] Immature Granulocytes % 0 % LAB HEMATOLOGY METHOD 01/08/2025 5:22 PM EDT [facility] Neutrophils Absolute 6.44(H) 1.60 - 6.10 10*3/uL LAB HEMATOLOGY METHOD 01/08/2025 5:22 PM EDT [facility] Lymphocytes Absolute 2.34 1.20 - 3.90 10*3/uL LAB HEMATOLOGY METHOD 01/08/2025 5:22 PM EDT [facility] Monocytes Absolute 0.66 0.30 - 0.90 10*3/uL LAB HEMATOLOGY METHOD 01/08/2025 5:22 PM EDT [facility] Eosinophils Absolute 0.24 0.00 - 0.50 10*3/uL LAB HEMATOLOGY METHOD 01/08/2025 5:22 PM EDT [facility] Basophils Absolute 0.10 0.00 - 0.10 10*3/uL LAB HEMATOLOGY METHOD 01/08/2025 5:22 PM EDT [facility] Immature Granulocytes Absolute 0.04 0.00 - 0.06 10*3/uL LAB HEMATOLOGY METHOD 01/08/2025 5:22 PM EDT [facility] Blood Venous blood specimen / Unknown Venipuncture / Unknown 01/08/2025 3:44 PM EDT 01/08/2025 3:44 PM EDT Narrative [facility] - 01/08/2025 5:22 PM EDT Therapeutic decision making should be based on absolute values, rather than percentages. us David Workman MD LAB BLOOD ORDERABLES Final Resul t [facility] [address] [place] [id number] * (ABNORMAL) PTH Intact Total (01/08/2025 3:44 PM EDT) PTH Intact Total 107(H) 9 - 77 pg/mL 01/08/2025 8:08 PM EDT [facility] Blood Venous blood specimen / Unknown Venipuncture / Unknown 01/08/2025 3:44 PM EDT 01/08/2025 3:44 PM EDT Narrative [facility] - 01/08/2025 8:08 PM EDT Assay performed by immunoassay at the [facility]. Performed on [employer] Steamer chemiluminescent immunoassay, tractable to the World Health Organization's first international standard for PTH from the NIBS, Code 79/500. Results obtained from different test methods or kits cannot be used interchangeably. us David Workman MD LAB BLOOD ORDERABLES Final Resul t [facility] [address] [place] [address] * (ABNORMAL) Renal Function Panel, Plasma (01/08/2025 3:44 PM EDT) Glucose, Plasma 96 74 - 99 mg/dL 01/08/2025 5:54 PM EDT [facility] BUN, Plasma 8 7 - 21 mg/dL 01/08/2025 5:54 PM EDT [facility] Creatinine, Plasma 1.26(H) 0.70 - 1.20 mg/dL 01/08/2025 5:54 PM EDT [facility] BUN/Creatinine Ratio 6 01/08/2025 5:54 PM EDT [facility] Sodium, Plasma 140 136 - 145 mmol/L 01/08/2025 5:54 PM EDT [facility] Potassium, Plasma 3.5(L) 3.6 - 4.9 mmol/L 01/08/2025 5:54 PM EDT [facility] Chloride, Plasma 102 97 - 107 mmol/L 01/08/2025 5:54 PM EDT [facility] CO2, Plasma 26 22 - 29 mmol/L 01/08/2025 5:54 PM EDT [facility] Anion [place] 12 6 - 16 mmol/L 01/08/2025 5:54 PM EDT [facility] Total Calcium, Plasma 9.1 8.9 - 10.2 mg/dL 01/08/2025 5:54 PM EDT [facility] Phosphorus, Plasma 3.3 2.5 - 4.5 mg/dL 01/08/2025 5:54 PM EDT [facility] Albumin, Plasma 4.4 3.5 - 5.2 g/dL 01/08/2025 5:54 PM EDT [facility] eGFRcr 66.5 mL/min/1.7 3m*2 01/08/2025 5:54 PM EDT [facility] Comment:Reported eGFRcr in m L/min/1.73m2 is based the CKD-EPI 2020 equation that does not use a race coefficient. Blood Venous blood specimen / Unknown Venipuncture / Unknown 01/08/2025 3:44 PM EDT 01/08/2025 3:44 PM EDT us David Workman MD LAB BLOOD ORDERABLES Final Resul t Performing Organization Address City/[facility] Co de Phone Number [facility] [address] [place] [address] * Albumin-creatinine ratio, urine, random (01/08/2025 3:40 PM EDT) Microalbumin, Urine 1.78 <1.9 mg/dL 01/08/2025 6:10 PM EDT [facility] Creatinine, Urine 87 mg/dL 01/08/2025 6:10 PM EDT [facility] Albumin/Creati nine Ratio 20 0 - 30 mg/g creatinine 01/08/2025 6:10 PM EDT [facility] Urine Urine specimen obtained by clean catch procedure / Unknown Non-blood Collection / Unknown 01/08/2025 3:40 PM EDT 01/08/2025 3:40 PM EDT us David Workman MD LAB URINE ORDERABLES Final Resul t Performing Organization Address [facility] de Phone Number [facility] [address] [place] [address] * Protein, Random, Urine with Creatinine (01/08/2025 3:40 PM EDT) Protein, Urine 13 mg/dL 01/08/2025 5:55 PM EDT [facility] Creatinine, Urine 86 mg/dL 01/08/2025 5:55 PM EDT [facility] Protein/Creati nine Ratio 0.2 mg/mg Creat 01/08/2025 5:55 PM EDT [facility] Urine Urine specimen obtained by clean catch procedure / Unknown Non-blood Collection / Unknown 01/08/2025 3:40 PM EDT 01/08/2025 3:40 PM EDT us David Workman MD LAB URINE ORDERABLES Final Resul t Performing Organization Address City/[facility] Co de Phone Number [facility] [address] [place] [address] * Urinalysis with reflex microscopic (Culture NOT Included) (01/08/2025 3:40 PM EDT) Color, Urine Yellow LAB URINALYSIS - AUTOMATED METHOD 01/08/2025 5:15 PM EDT [facility] Clarity, Urine Clear LAB URINALYSIS - AUTOMATED METHOD 01/08/2025 5:15 PM EDT [facility] Spec [place], Urine 1.010 1.005 - 1.030 LAB URINALYSIS - AUTOMATED METHOD 01/08/2025 5:15 PM EDT [facility] pH, Urine 6.0 5.0 - 8.0 LAB URINALYSIS - AUTOMATED METHOD 01/08/2025 5:15 PM EDT [facility] Protein, Urine Negative Negative mg/dL LAB URINALYSIS - AUTOMATED METHOD 01/08/2025 5:15 PM EDT [facility] Glucose, Urine Negative Negative mg/dL LAB URINALYSIS - AUTOMATED METHOD 01/08/2025 5:15 PM EDT [facility] Ketones, Urine Negative Negative mg/dL LAB URINALYSIS - AUTOMATED METHOD 01/08/2025 5:15 PM EDT [facility] Blood, Urine Negative Negative LAB URINALYSIS - AUTOMATED METHOD 01/08/2025 5:15 PM EDT [facility] Bilirubin, Urine Negative Negative LAB URINALYSIS - AUTOMATED METHOD 01/08/2025 5:15 PM EDT [facility] Urobilinogen, Urine 0.2 0.2 to 1.0 mg/dL LAB URINALYSIS - AUTOMATED METHOD 01/08/2025 5:15 PM EDT [facility] Leukocytes, Urine Negative Negative LAB URINALYSIS - AUTOMATED METHOD 01/08/2025 5:15 PM EDT [facility] Nitrite, Urine Negative Negative LAB URINALYSIS - AUTOMATED METHOD 01/08/2025 5:15 PM EDT [facility] Urine Urine specimen obtained by clean catch procedure / Unknown Non-blood Collection / Unknown 01/08/2025 3:40 PM EDT 01/08/2025 3:40 PM EDT us David Workman MD LAB URINE ORDERABLES Final Resul t [facility] [address] [place] [address] * (ABNORMAL) Pain Management, Quantitative Urine Drug Testing (01/08/2025 1:38 PM EDT) [place] Alprazolam <20 <20 ng/mL 01/11 9:44 AM EDT [facility] [place] Midazolam <20 <20 ng/mL 2024 9:44 AM EDT [facility] [place] Triazolam <20 <20 ng/mL 2024 9:44 AM EDT [facility] Alprazolam <10 <10 ng/mL 01/11/2025 9:44 AM EDT [facility] Aminoclonazepam <20 <20 ng/mL 9:44 AM EDT [facility] Amphetamine <50 <50 ng/mL 01/11/2025 9:44 AM EDT [facility] Benzoylecgonine <50 <50 ng/mL 9:44 AM EDT [facility] Buprenorphine <10 <10 ng/mL 01/11/2025 9:44 AM EDT [facility] Buprenorphine Glucuronide <50 <50 ng/mL 01/11/2025 9:44 AM EDT [facility] Butalbital <50 <50 ng/mL 01/11/2025 9:44 AM EDT [facility] 9 Carboxy THC <10 <10 ng/mL 01/11/2025 9:44 AM EDT [facility] 9 Carboxy THC Glucuronide <25 <25 ng/mL 01/11/2025 9:44 AM EDT [facility] Clonazepam <10 <10 ng/mL 01/11/2025 9:44 AM EDT [facility] Codeine <50 <50 ng/mL 01/11/2025 9:44 AM EDT [facility] Codeine Glucuronide <50 <50 ng/mL 01/11 9:44 AM EDT [facility] Cyclobenzaprine <50 <50 ng/mL 9:44 AM EDT [facility] Desmethyl Tramadol <50 <50 ng/mL 2024 9:44 AM EDT [facility] Diazepam <10 <10 ng/mL 01/11/2025 9:44 AM EDT [facility] EDDP - Methadone Metabolite <50 <50 ng/mL 01/11/2025 9:44 AM EDT [facility] Fentanyl <1 <1 ng/mL 01/11/2025 9:44 AM EDT [facility] Hydrocodone 168(H) <50 ng/mL 01/11/2025 9:44 AM EDT [facility] Hydromorphone <50 <50 ng/mL 01/11/2025 9:44 AM EDT [facility] Hydromorphone Glucuronide 157(H) <50 ng/mL 01/11/2025 9:44 AM EDT [facility] Lorazepam <20 <20 ng/mL 01/11/2025 9:44 AM EDT [facility] Lorazepam Glucuronide <50 <50 ng/mL 01/11/2025 9:44 AM EDT [facility] MDA <50 <50 ng/mL 01/11/2025 9:44 AM EDT [facility] MDMA <50 <50 ng/mL 01/11/2025 9:44 AM EDT [facility] Meperidine <50 <50 ng/mL 01/11/2025 9:44 AM EDT [facility] Methadone <50 <50 ng/mL 01/11/2025 9:44 AM EDT [facility] Methamphetamine <50 <50 ng/mL 9:44 AM EDT [facility] Methylphenidate <50 <50 ng/mL 9:44 AM EDT [facility] 6 Monoacetyl morphine <10 <10 ng/mL 01/11/2025 9:44 AM EDT [facility] Morphine <50 <50 ng/mL 01/11/2025 9:44 AM EDT [facility] Morphine Glucuronide <50 <50 ng/mL 12/21 9:44 AM EDT [facility] Naloxone <50 <50 ng/mL 01/11/2025 9:44 AM EDT [facility] Naloxone Glucuronide <50 <50 ng/mL 12/21 9:44 AM EDT [facility] Norbuprenorphine <10 <10 ng/mL 01/12/20 9:44 AM EDT [facility] Norbuprenorphine Glucuronide <50 <50 ng/mL 01/11/2025 9:44 AM EDT [facility] Nordiazepam <20 <20 ng/mL 01/11/2025 9:44 AM EDT [facility] Norfentanyl <2 <2 ng/mL 01/11/2025 9:44 AM EDT [facility] Normeperidine <50 <50 ng/mL 01/11/2025 9:44 AM EDT [facility] PCP Quant, Ur <50 <50 ng/mL 01/11/2025 9:44 AM EDT [facility] Phenobarbital <50 <50 ng/mL 01/11/2025 9:44 AM EDT [facility] Oxazepam <20 <20 ng/mL 01/11/2025 9:44 AM EDT [facility] Oxazepam Glucuronide <50 <50 ng/mL 12/21 9:44 AM EDT [facility] Oxycodone <50 <50 ng/mL 01/11/2025 9:44 AM EDT [facility] Oxymorphone <50 <50 ng/mL 01/11/2025 9:44 AM EDT [facility] Oxymorphone Glucuronide <50 <50 ng/mL 01/11/2025 9:44 AM EDT [facility] Secobarbital <50 <50 ng/mL 01/11/2025 9:44 AM EDT [facility] Tramadol <50 <50 ng/mL 01/11/2025 9:44 AM EDT [facility] Temazepam <20 <20 ng/mL 01/11/2025 9:44 AM EDT [facility] Temazepam Glucuronide <50 <50 ng/mL 01/11/2025 9:44 AM EDT [facility] Urine Urine specimen obtained by clean catch procedure / Unknown Non-blood Collection / Unknown 01/08/2025 1:38 PM EDT 01/08/2025 1:38 PM EDT [facility] - 01/11/2025 9:44 AM EDT This [...] laboratory. Test performed by LC-MS/MS at the [facility]. This test was developed and its performance characteristics determined by [facility]. It has not been cleared or approved by the FDA. The laboratory is regulated under CLIA as qualified to perform high-complexity testing. This test is used for clinical purposes. Leslie Morrison DO LAB URINE ORDERABLES Final Result [facility] [address] [place] [address] from Last 3 Months Insurance [facility] MEDICAID Care Teams Commutator Tester Relationship Specialty Start Date End Date Inna Serrano APRN [address] [place] [address] PCP - General 02/19/24 Ángela Millard APRN [address] [place] [address] Nurse Practitioner Neurosurgery 09/17/21
== END 2025-03-14 23:59 | disposition home or self-care (01) ==
LOC: RT 14:24
PROVIDERS: PCP Nurse Practitioner; Visit Provider Nurse Practitioner
DX: I65.23 Occlusion and stenosis of bilateral carotid arteries (principal); R60.9 Edema, unspecified; I25.10 Atherosclerotic heart disease of native coronary artery without angina pectoris
CPT/HCPCS: 93880; 93970

== ENCOUNTER 2025-04-02 12:33 | Outpatient (CLI) | payer MEDICAID, SELFPAY ==
--- OUTSIDE RECORDS SUMMARY | 2024-04-27 16:00 | XMS_ITS ---
Author Organization [facility] Address [address] [place] [address] Care Team Providers Care Photo Mask Inspector Name Role Phone Chayo Morrison Primary Care Provider Jraed Philippe Unavailable Migration, Provider Unavailable Unavailable Allergies Allergen (clinical drug ingredient) Drug/Non Drug Allergy documented on EMR Reaction Allergy Type Onset Date Status IVP DYE (uncoded) anaphylaxis Allergy Active Non-steroidal anti-inflammatory agent (FN) NAIDS (uncoded) anaphylaxis Allergy Active Steroid STEROID (uncoded) anaphylaxis Allergy [facility] Conversion Encounter Medications Medication SIG (Take, Route, Frequency, Duration) Notes Start Date End Date Status Cyclobenzaprine HCl 5 MG Tablet ; Duration: 10 Days Active Nitroglycerin 0.4 MG Tablet Sublingual 1 tab(s) sublingually every 5 minutes PRN Active Lisinopril 10 MG Tablet 1 tab(s) orally once a day Active Losartan Potassium 50 MG Tablet 1 tab(s) orally once a day Active EPINEPHrine 0.3 MG KIT DIRECTED INTRAMUSCULARLY ONCE *Please review and pick correct strength[facility]ulat ion [facility]. If intended option is not shown, discontinue and re-order from Quick Search* Active PROAIR HFA 90 MCG/INH AEROSOL ; Duration: 17 DAYS *Please review for potential replacement for e-prescription and drug interaction check* Active Metoprolol Succinate ER 50 MG Tablet Extended Release 24 Hour ; Duration: 30 Days Active amLODIPine Besylate 10 MG Tablet 1 tab(s) orally once a day Active HYDROcodone-Acetamino phen 5-325 MG Tablet 1 tab(s) orally every 6 hours Active Encounters Encounter Location Date Provider Diagnosis Hakan Fry [address] [place] [address] 04/27/2024 Provider Migration Plan Of Treatment No Information Progress Notes * Luca KAUFFMAN DDOB: [birth year] (59 yo M)Acc No.[id number]:04/27/2024 Patient: Luca Jacobo Provider: Catalina neil Migration :1965 A ge:58 Y S ex:Male Date:04/27/2024 Address:[address], [facility], [id number] Pcp:Chayo Morrison Subjective: * Chief Complaints: * [facility] * Medications: T akingNitroglycerin 0.4 MG Tablet Sublingual 1 tab(s) sublingually every 5 minutes , Notes to Pharmacist: PRNLisinopril 10 MG Tablet 1 tab(s) orally once a day Losartan Potassium 50 MG Tablet 1 tab(s) orally once a day EPINEPHrine 0.3 MG KIT DIRECTED INTRAMUSCULARLY ONCE , Notes to Pharmacist: *Please review and pick correct strength-formulation from [employer] options. If intended option is not shown, discontinue and re-order from Quick Search*amLODIPine Besylate 10 MG Tablet 1 tab(s) orally once a day HYDROcodone-Acetaminophen 5-325 MG Tablet 1 tab(s) orally every 6 hours Metoprolol Succinate ER 50 MG Tablet Extended Release 24 Hour PROAIR HFA 90 MCG/INH AEROSOL , Notes to Pharmacist: *Please review for potential replacement for e-prescription and drug interaction check*Cyclobenzaprine HCl 5 MG Tablet Taking Nitroglycerin 0.4 MG Tablet Sublingual 1 tab(s) sublingually every 5 minutes , Notes to Pharmacist: PRNTaking Lisinopril 10 MG Tablet 1 tab(s) orally once a day Taking Losartan Potassium 50 MG Tablet 1 tab(s) orally once a day Taking EPINEPHrine 0.3 MG KIT DIRECTED INTRAMUSCULARLY ONCE , Notes to Pharmacist: *Please review and pick correct strength-formulation from [employer] options. If intended option is not shown, discontinue and re-order from Quick Search*Taking amLODIPine Besylate 10 MG Tablet 1 tab(s) orally once a day Taking HYDROcodone-Acetaminophen 5-325 MG Tablet 1 tab(s) orally every 6 hours Taking Metoprolol Succinate ER 50 MG Tablet Extended Release 24 Hour Taking PROAIR HFA 90 MCG/INH AEROSOL , Notes to Pharmacist: *Please review for potential replacement for e-prescription and drug interaction check*Taking Cyclobenzaprine HCl 5 MG Tablet * Allergies: S TEROID: anaphylaxis - Allergy - Criticality HighNAIDS: anaphylaxis - Allergy - Criticality HighIVP DYE: anaphylaxis - Allergy - Criticality High * Electronic signature of Prov ider Migration on 04/02/2025 at 12:39 PM EST Sign off status: Pending * Provider: Catalina neil Migration Date: 06/28/2023 Generated for Laurie johnson/Jovanna/Glendasmitting on: 06/02/2024 12:39 PM EST
--- OUTSIDE RECORDS SUMMARY | 2025-02-17 05:20 | XMS_ITS | Encounter Summary ---
Author Organization [facility] Address [address] [place] [address] Care Team Providers Care Top Cutter Name Role Phone Delmer Fritz MD Primary Care Provider [phone] Reason for Referral * Rehabilitation - Outpatient (Routine) - Pending Review Specialty Diagnoses / Procedures Referred By Contact Referred To Contact Cardiac Rehabilitation Diagnoses S/P angioplasty with stent Procedures [place] OFFICE/OUTPATIENT NEW MODERATE MDM 45 MINUTES Emir Morales MD [address] [place] [address] Phone: tel: fax: [facility] [address] [place] [address] Phone: tel: Referral ID Status Reason Start Date Expiration Date V isits Requested Visits Authorized [id number] Pending Review 02/17/2025 05/19/2026 1 1 * Diagnostic Medical (Routine) - Pending Review Specialty Diagnoses / Procedures Referred By Contac t Referred To Contact Diagnoses Chest pain, unspecified type Abnormal nuclear stress test Procedures Cardiac Catheterization/Vascular Study Emir Morales MD [address] [place] [address] Phone: tel: fax: Referral ID Status Reason Start Date Expiration Date V isits Requested Visits Authorized [id number] Pending Review 02/11/2025 05/13/2026 1 1 Reason for Visit * Auth/Cert (Routine) Specialty Diagnoses / Procedures Referred By Contac t Referred To Contact Diagnoses Chest pain, unspecified type Abnormal nuclear stress test Procedures [place] CATH PLMT L HRT & ARTS W/NJX & ANGIO IMG S&I Left Heart Cath Referral ID Status Reason Start Date Expiration Date Visits Re quested Visits Authorized [id number] 1 1 Encounter Details Date Type Department Care Team (Late st Contact Info) Description 02/17/2025 6:20 AM EDT - 02/17/2025 12:13 PM EDT Hospital Encounter [facility] [address] [place] [address] Emir Morales MD [address] [place] [address] S/P angioplasty with stent (Primary Dx); Chest pain, unspecified type; Abnormal nuclear stress test Discharge Disposition: Home or Self Care Social History Tobacco Use Types Packs/Day Years Used Date Smoking Tobacco: Every Day Cigarettes 0.3 38.9 Started: 1986 Smokeless Tobacco: Former Comments:has smoked over a p ack a day at times. Alcohol Use Standard Drinks/Week Comments No 0 (1 standard drink = 0.6 oz pur e alcohol) AUDIT-C Answer Date Recorded Q1: How often do you have a drink containing alcohol? Never 02/17/2025 Q2: How many drinks containi ng alcohol do you have on a typical day when you are drinking? Patient does not drink Q3: How often do you have si x or more drinks on one occasion? Never 02/17/2025 Abuse Screen Answer Date Recorded Feels Unsafe at Home or Work/School no 02/17/2025 Feels Threatened by Someone no 01/21 Does Anyone Try to Keep You From Having Contact with Others or Doing Things Outside Your Home? no 02/17/2025 Physical Signs of Abuse Present no 02/17/2025 Housing Stability Answer Date Recorded Current Living Arrangements home 01/21 Potentially Unsafe Housing Conditions Not on phil e 02/17/2025 Disabilities Answer Date Recorded Difficulty Concentrating, Remembering or Making Decisions no 02/17/2025 Difficulty Managing Errands Independently no 02/17/2025 Sex and Gender Information Value Date Recorded Sex Assigned at Male 01/22/2025 9:01 AM EDT Legal Sex Male 12:07 PM EDT Gender Identity Not on file Sexual Orientation Straight 01/22/2025 9: 01 AM EDT Occupation Industry Job Start Date Job 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[employer] Not 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 Not on file Not on f ile documented as of this encounter Last Filed Vital Signs Vital Sign Reading Time Taken Comments Blood Pressure 129/85 02/17/2025 11:45 AM EDT Pulse 72 02/17/2025 11:45 AM EDT Temperature 36.6 C (97.8 F) 02/17/2025 6:36 AM EDT Respiratory Rate 16 02/17/2025 8:25 AM EDT Oxygen Saturation 93% 02/17/2025 11:45 AM EDT Inhaled Oxygen Concentration - - Weight 115 kg (253 lb 15.5 oz) 02/17/2025 6:29 A M EDT Height 182.9 cm (6') 02/17/2025 6:29 AM EDT Body Mass Index 34.44 02/17/2025 6:29 AM EDT documented in this encounter Functional Status * Question Answer Date of Assessment Author 1. Wish to be (Past 1 Month) No 025 6:45 AM EDT Muna Rothman RN 2. Non-Specific Active Suici tyrone Thoughts (Past 1 Month) No 02/17/2025 6:45 AM EDT Chip Rothman RN * Calculated C-SSRS Risk Score (Lifetime/Recent) Answer Date of Assessment Author No Risk Indicated 02/17/2025 6:45 AM EDT Muna Cardozo RN * [place] Suicide Severity Rating Scale (Screener/Recent Self-Report) Question Answer Date of Assessment Author 6. Suicidal Behavior (Lifetime) No 6:45 AM EDT Muna Rothman RN documented as of this encounter Discharge Instructions * Attachments The following attachments cannot be sent through Care Everywhere. * Radial Site Care (Guinean) * Moderate Conscious Sedation Adult Care After ([place]inean) * Coronary Angiogram With Stent ([place]inean) * Aspirin Tablets ([place]inean) * Prasugrel Tablets (Guinean) * Steps to Quit Smoking (Guinean) * Managing the Challenge of Quitting Smoking ([place]an) documented in this encounter Medications at Time of Discharge amLODIPine (NORVASC) 5 MG tablet Take 1 tablet by mouth Daily. 90 tablet 1 02/17/2025 9:50 AM EDT 02/17/2025 aspirin 81 MG EC tablet Take 1 tablet by mouth Daily. 100 tablet 1 02/17/2025 9:50 AM EDT 02/17/2025 benzonatate (TESSALON) 100 MG capsule Take 1 [...] tablet Take 1 tablet by mouth Daily. prasugrel (EFFIENT) 10 MG tablet Take 1 tablet by mouth Daily. 90 tablet 3 02/17/2025 9:50 AM EDT 02/17/2025 promethazine (PHENERGAN) 25 MG tablet Take 1 tablet by mouth Every 6 (Six) Hours As Needed. 11/21/2018 rosuvastatin (CRESTOR) 40 MG tablet Take 1 tablet by mouth Every Night. 07/17/2023 sacubitril-valsart an (Entresto) 97-103 MG tablet Take 1 tablet by mouth 2 (Two) Times a Day. documented as of this encounter H&P Notes * Emir Morales MD - 02/17/2025 7:10 AM EDT [facility] IP Progress Note Chief Complaint: Dyspnea/HFpEF/abnormal stress test Subjective The patient is a 59-year-old male with symptoms of dyspnea on exertion and chronic edema. He has been managed for HFpEF and had a myocardial perfusion stress test for ischemic evaluation which was abnormal. 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 Armstrong. Patient reports a contrast allergy as well as steroid allergy . Objective Blood pressure (!) 187/103, pulse 67, temperature 97.8 ??F (36.6 ??C), temperature source Temporal,resp. rate 14, height 182.9 cm (72 ), weight 115 kg (253 lb 15.5 oz), SpO2 93%. No intake or output data in the 24 hours ending 02/17/25 0712 Physical Exam: General: No acute distress. Neck: no JVD. Chest:No respiratory distress, breath sounds are normal. No wheezes, rhonchi or rales. Cardiovascular: Normal S1 and S2, no murmur, gallop or rub. Extremities: Trace edema and hyperpigmentation with chronic stasis changes. Right radial Barbeau test is normal Results Review: I reviewed the patient's new clinical results. Invalid input(s): LABALBU , PROT No results found for: CKTOTAL , CKMB , CKMBINDEX , TROPONINI , TROPONINT Tele: Sinus Rythym Assessment: Dyspnea on exertion/angina: Symptoms. Abnormal myocardial perfusion stress test. Chronic HFpEF Hypertension. Dyslipidemia. Plan: Proceed to left heart catheterization via right radial approach. PCI if indicated. The procedure was explained to the patient/family extensively. Indications, benefits, risks and alternatives were discussed. The patient understands well, and wishes to proceed. Will use Benadryl and IV Solu-Medrol for contrast allergy. Will optimize medical management per guidelines. Emir Morales MD, [facility], [facility] documented in this encounter Consult Notes * Cruz Salazar RN - 02/17/2025 8:49 AM EDT Chart review for conservation educator consult. At the time of this review patient A1c is 5.16 , they have no noted history of diabetes and no homemedications noted for treatment of diabetes. At this time we do not feel the patient would benefit from diabetes education. Thank you for this consult, should patient needs change please re consult us. documented in this encounter Plan of Treatment Scheduled Referrals Name Type Priority Associated Diagnoses Orde r Schedule Ambulatory Referral to Cardiac Rehab Outpatient Referral Routine S/P angioplasty with stent Ordered: 02/17/2025 documented as of this encounter Procedures Procedure Name Priority Date/Time Associated Diagnosis Comments ECG 12-LEAD STAT 02/17/2025 9:50 AM EDT CARDIAC CATHETERIZATION Routine 02/18/20 8:18 AM EDT Chest pain, unspecified type Abnormal nuclear stress test CARDIAC CATHETERIZATION Routine 02/18/20 8:18 AM EDT Chest pain, unspecified type Abnormal nuclear stress test CARDIAC CATHETERIZATION Routine 02/18/20 8:18 AM EDT Chest pain, unspecified type Abnormal nuclear stress test POCT ACTIVATED CLOTTING TIME Routine 02/17/2025 8:16 AM EDT SCANNED - TELEMETRY 02/17/2025 7 :14 AM EDT POCT CREATININE Routine 02/17/2025 6:57 AM EDT CBC (NO DIFF) STAT 02/17/2025 6:55 AM EDT HEMOGLOBIN A1C Routine 02/17/2025 6:55 AM EDT LIPID PANEL Routine 02/17/2025 6:55 AM EDT BASIC METABOLIC PANEL STAT 02/17/2025 6:55 AM EDT documented in this encounter Results * ECG 12 Lead Other; Post-Cath (02/17/2025 9:50 AM EDT) QT Interval 424 ms ECG QTC Interval 464 ms ECG 02/17/2025 9:50 AM EDT 02/20/2025 8:33 AM EDT Narrative ECG - 02/20/2025 8:33 AM EDT Test Reason : Other~ Blood Pressure : */* mmHG Vent. Rate : 72 BPM Atrial Rate : 72 BPM P-R Int : 210 ms QRS Dur : 108 ms QT Int : 424 ms P-R-T Axes : 71 -16 61 degrees QTcB Int : 464 ms Sinus rhythm with 1st degree AV block with premature supraventricular complexes and with occasional premature ventricular complexes Otherwise normal ECG No previous ECGs available Confirmed by CONSTANTIN NAZARIO ([id number]) on 02/20/2025 8:33:16 AM Referred By: Confirmed By: CONSTANTIN NAZARIO Procedure Note Constantin Nazario MD - 02/20/2025 Test Reason : Other~ Blood Pressure : */* mmHG Vent. Rate : 72 BPM Atrial Rate : 72 BPM P-R Int : 210 ms QRS Dur : 108 ms QT Int : 424 ms P-R-T Axes : 71 -16 61 degrees QTcB Int : 464 ms Sinus rhythm with 1st degree AV block with premature supraventricular complexes and with occasional premature ventricular complexes Otherwise normal ECG No previous ECGs available Confirmed by CONSTANTIN NAZARIO ([id number]) on 02/20/2025 8:33:16 AM Referred By: Confirmed By: CONSTANTIN NAZARIO Emir Morales MD ECG ORDERABLES Final Result ECG * LEFT HEART CATH, FUNCTIONAL FLOW RESERVE, STENT MAVERICK - CORONARY (02/17/2025 8:18 AM EDT) Anatomical Region Laterality Modality X-Ray Angiograph y Impressions 02/17/2025 8:42 AM EDT 70% stenosis of the proximal left circumflex coronary artery stented with 3.0 x 15 mm MAVERICK and reduced to 0%. Minor irregularities and mild plaque of all other vessels without any other hemodynamically significant disease. Normal left ventricular systolic function, estimated EF 65%. RECOMMENDATIONS: Dual antiplatelet therapy for 30 days, subsequently aspirin will be discontinued due to patient's history of PUD/gastritis and Effient will be continued for at least 1 year. Optimize medical therapy and risk factor management per guidelines. Indications: Angina equivalent symptoms/HFpEF/abnormal myocardial perfusion stress test. Access: Right radial. Procedures: Left heart catheterization. Left ventriculogram. Selective coronary angiography. Stenting of the proximal left circumflex coronary artery with MAVERICK. Arterial site hemostasis with radial band. Procedure narrative: The patient was brought to the catheterization lab in a fasting condition. Access site was prepped and draped in standard sterile fashion. Lidocaine was injected and arterial access was obtained by percutaneous anterior wall puncture technique. A 6 Luxembourger arterial sheath was placed. Above procedures were performed without complications. The patient was noted to have a stenosis in the proximal circumflex which appeared to be about 70% to 75% in certain views initially we decided to perform FFR of this stenosis. At this time additional heparin was given. The left coronary artery was engaged with CLS 3 guide catheter. Despite multiple attempts the FFR wire could not be advanced due to sharp angulation of the guide catheter. I then placed a second wire in the LAD for stabilization. Since the lesion was quite difficult and angulated it was felt that we will not be able to get reliable FFR results therefore we decided to go ahead and stent this stenosis which appeared significant angiographically. At this time the circumflex was wired with a whisper wire and a versa turn wire was placed in the LAD for guide catheter stabilization. The circumflex was then proximally stented with a 3.0 x 15 mm MAVERICK which was deployed at 12 beryl and postdilated at 14 beryl with excellent expansion and no significant residual stenosis and no evidence of complications. Nitroglycerin was injected and final angiograms were taken. The guide catheter was removed. PRUDENCIO flow was grade 3 before and after PCI. At the conclusion the arterial sheath was removed and hemostasis was achieved. The patient was transferred to the unit in a stable condition. Hemodynamic Findings: Heart Rate: 88/minute. LV pressure: 180/10-28 mmHg, on pull back no gradient was recorded across the aortic valve. Angiographic Findings: Right coronary dominance. LM: Angiographically normal. LAD: Minor irregularities and mild scattered plaque without occlusive disease. Ramus intermedius: Large vessel with mild, 30% irregular mid segment plaque without hemodynamic significant disease. LCX: Nondominant vessel with a 70% proximal stenosis and mild plaque of the major obtuse marginal without any other hemodynamically significant disease. The proximal stenosis was stented with a 3.0 x 15 mm MAVERICK and reduced to 0%. RCA: Minor irregularities and mild plaque without hemodynamically significant disease. LV: Left ventriculogram performed in 30 PANDYA projection revealed normal global and regional left ventricular systolic function with estimated ejection fraction of 65%. No mitral regurgitation was noted. Complications: No acute procedure related complications. Narrative 02/17/2025 8:42 AM EDT FINAL Procedure Narrative Risks, benefits and alternatives were discussed with the patient and/or family. Plan is for minimal sedation. Under my direct supervision, intravenous minimal sedation sedation was administered during the course of this procedure with continuous monitoring of hemodynamic parameters and level of consciousness by an independent trained observer. Less than 20 mL of estimated blood loss during the case. No specimen was collected during the case. us Emir Morales MD CV CARDIAC CATH ORDERABLES Edite d Result - Final * (ABNORMAL) POC Activated Clotting Time (02/17/2025 8:16 AM EDT) [facility] Activated Clotting Time 389(H) 82 - 152 Seconds 02/17/2025 12:10 PM EDT [facility] Comment:Serial Number: [id number]: [id number] Blood 02/17/2025 8:16 AM EDT 02/17/2025 12:10 PM EDT us Emir Morales MD POINT OF CARE TEST ORDERABLES Fi nal Result [facility]
[address] [place] [address], * Telemetry Scan (02/17/2025 7:14 AM EDT) [facility] Onbase ECG ORDERABLES Final Result * (ABNORMAL) POC Creatinine (02/17/2025 6:57 AM EDT) Creatinine 1.40(H) 0.60 - 1.30 mg/dL 02/17/2025 7:15 AM EDT [facility] Comment:Serial Number: [id number]: [id number] Blood 02/17/2025 6:57 AM EDT 02/17/2025 7:15 AM EDT Emir Morales MD POINT OF CARE TEST ORDERABLES Fi nal Result Performing Organization Address [facility]/ZIP Co de Phone Number [facility]
[address] [place] [address], * (ABNORMAL) Lipid Panel (02/17/2025 6:55 AM EDT) Total Cholesterol 125 0 - 200 mg/dL 02/17/2025 7:38 AM EDT [facility] Triglycerides 78 0 - 150 mg/dL 02/17/2025 7:38 AM EDT [facility] HDL Cholesterol 31(L) 40 - 60 mg/dL 02/17/2025 7:38 AM EDT [facility] LDL Cholesterol 78 0 - 100 mg/dL 02/17/2025 7:38 AM EDT [facility] VLDL Cholesterol 16 5 - 40 mg/dL 02/17/2025 7:38 AM EDT [facility] LDL/HDL Ratio 2.53 02/17/2025 7:38 AM EDT [facility] Blood Line / Unknown 02/17/2025 6: 55 AM EDT 02/17/2025 7:13 AM EDT [facility] - 02/17/2025 7:38 AM EDT Cholesterol Reference Ranges (U.S. Department of Health and Human Services ATP III Classifications) Desirable <200 mg/dL Borderline High 200-239 mg/dL High Risk >240 mg/dL Triglyceride Reference Ranges (U.S. Department of Health and Human Services ATP III Classifications) Normal <150 mg/dL Borderline High 150-199 mg/dL High 200-499 mg/dL Very High >500 mg/dL HDL Reference Ranges (U.S. Department of Health and Human Services ATP III Classifications) Low <40 mg/dl (major risk factor for CHD) High >60 mg/dl ('negative' risk factor for CHD) LDL Reference Ranges (U.S. Department of Health and Human Services ATP III Classifications) Optimal <100 mg/dL Near Optimal 100-129 mg/dL Borderline High 130-159 mg/dL High 160-189 mg/dL Very High >189 mg/dL LDL is calculated using the NIH LDL-C calculation. us Emir Morales MD LAB BLOOD ORDERABLES Final Resul t [facility]
[address] [place] [address], * Hemoglobin A1c (02/17/2025 6:55 AM EDT) Hemoglobin A1C 5.16 4.80 - 5.60 % 02/17/2025 8:32 AM EDT [facility] Blood Line / Unknown 02/17/2025 6: 55 AM EDT 02/17/2025 7:12 AM EDT [facility] - 02/17/2025 8:32 AM EDT Hemoglobin A1C Ranges: Increased Risk for Diabetes 5.7% to 6.4% Diabetes >= 6.5% Diabetic Goal < 7.0% us Emir Morales MD LAB BLOOD ORDERABLES Final Resul t [facility]
[address] [place] [address], * (ABNORMAL) Basic Metabolic Panel (02/17/2025 6:55 AM EDT) [facility] Glucose 90 65 - 99 mg/dL 02/17/2025 7:38 AM EDT [facility] BUN 8.0 6.0 - 20.0 mg/dL 02/17/2025 7:38 AM EDT [facility] Creatinine 1.29(H) 0.76 - 1.27 mg/dL 02/17/2025 7:38 AM EDT [facility] Sodium 141 136 - 145 mmol/L 02/17/2025 7:38 AM EDT [facility] Potassium 3.5 3.5 - 5.2 mmol/L 02/17/2025 7:38 AM EDT [facility] Chloride 104 98 - 107 mmol/L 02/17/2025 7:38 AM EDT [facility] CO2 27.5 22.0 - 29.0 mmol/L 02/17/2025 7:38 AM EDT [facility] Calcium 8.9 8.6 - 10.5 mg/dL 02/17/2025 7:38 AM EDT [facility] BUN/Creatinine Ratio 6.2(L) 7.0 - 25.0 02/17/2025 7:38 AM EDT [facility] Anion Gap 9.5 5.0 - 15.0 mmol/L 02/17/2025 7:38 AM EDT [facility] eGFR 64.7 >60.0 mL/min/1.7 3 02/17/2025 7:38 AM EDT [facility] Blood Line / Unknown 02/17/2025 6: 55 AM EDT 02/17/2025 7:13 AM EDT Narrative [facility] - 02/17/2025 7:38 AM EDT GFR Categories in Chronic Kidney Disease (CKD) GFR Category GFR (mL/min/1.73) Interpretation G1 90 or greater Normal or high (1) G2 60-89 Mild decrease (1) G3a 45-59 Mild to moderate decrease G3b 30-44 Moderate to severe decrease G4 15-29 Severe decrease G5 14 or less Kidney failure (1)In the absence of evidence of kidney disease, neither GFR category G1 or G2 fulfill the criteria for CKD. eGFR calculation 2020 CKD-EPI creatinine equation, which does not include race as a factor Emir Morales MD LAB BLOOD ORDERABLES Final Resul t [facility]
[address] [place] [address], * (ABNORMAL) CBC (No Diff) (02/17/2025 6:55 AM EDT) WBC 7.66 3.40 - 10.80 10*3/mm3 02/17/2025 7:28 AM EDT [facility] RBC 5.14 4.14 - 5.80 10*6/mm3 02/17/2025 7:28 AM EDT [facility] Hemoglobin 15.9 13.0 - 17.7 g/dL 02/17/2025 7:28 AM EDT [facility] Hematocrit 48.2 37.5 - 51.0 % 02/17/2025 7:28 AM EDT [facility] MCV 93.8 79.0 - 97.0 fL 02/17/2025 7:28 AM EDT [facility] MCH 30.9 26.6 - 33.0 pg 02/17/2025 7:28 AM EDT [facility] MCHC 33.0 31.5 - 35.7 g/dL 02/17/2025 7:28 AM EDT [facility] RDW 12.6 12.3 - 15.4 % 02/17/2025 7:28 AM EDT [facility] RDW-SD 43.5 37.0 - 54.0 fl 02/17/2025 7:28 AM EDT [facility] MPV 12.5(H) 6.0 - 12.0 fL 02/17/2025 7:28 AM EDT [facility] Platelets 135(L) 140 - 450 10*3/mm3 02/17/2025 7:28 AM EDT [facility] Blood Line / Unknown 02/17/2025 6: 55 AM EDT 02/17/2025 7:12 AM EDT Emir Morales MD LAB BLOOD ORDERABLES Final Resul t [facility]
[address] [place] [address], documented in this encounter Visit Diagnoses Diagnosis S/P angioplasty with stent- Primary Postsurgical percutaneous transluminal coronary angioplasty status Chest pain, unspecified type Abnormal nuclear stress test Chest pain Unspecified chest pain Abnormal nuclear stress test Chest pain, unspecified type Abnormal nuclear stress test documented in this encounter Admitting Diagnoses Diagnosis Chest pain Unspecified chest pain Abnormal nuclear stress test documented in this encounter Administered Medications Inactive Administered Medications - up to 3 most recent administrations Medication Order MAR Action Action Date Dose Rate Site aspirin chewable tablet 81 mg 81 mg, Oral, Daily, First dose on Mon02/17/25 at 0836, Herbal/drug interaction: Avoid use with ginkgo biloba. Based on patient request - if ordered for moderate or severe pain, provider allows for administration of a medication prescribed for a lower pain scale. Do not exceed 4 grams of aspirin in a 24 hr period. If given for pain, use the following pain scale: Mild Pain = Pain Score of 1-3, CPOT 1-2 Moderate Pain = Pain Score of 4-6, CPOT 3-4 Severe Pain = Pain Score of 7-10, CPOT 5-8 Given 02/17/2025 11:05 AM EDT 81 mg diphenhydrAMINE (BENADRYL) capsule 50 mg 50 mg, Oral, Once, On Mon02/17/25 at 0705, For 1 dose, Caution: Look alike/sound alike drug alert. This med may be ordered in other forms and routes. Before giving verify the last time the drug was given by any route/form. Given 02/17/2025 7:12 AM EDT 50 mg sodium chloride 0.9 % bolus 330 mL 330 mL, Intravenous, at 330 mL/hr, Administer over 1 Hours, Once Over 1 Hour, On Mon02/17/25 at 0627, For 1 dose, Administer One Hour Prior to Receiving IV ContrastIndications:Abnorma l nuclear stress test New Bag 02/17/2025 6:56 AM EDT 330 mL 330 mL/hr sodium chloride 0.9 % infusion 100 mL/hr, Intravenous, Continuous, Starting on Mon02/17/25 at 0836, For 5 hours Restarted 02/17/2025 8:40 AM EDT 100 mL/hr 100 mL/hr documented in this encounter Active and Recently Administered Medications Times are shown in EDT. Scheduled Medication Order 02/15/2025 02/16/2025 02/17/2025 aspirin chewable tablet 81 mg 81 mg, Oral, Daily, First dose on Mon02/17/25 at 0836, Herbal/drug interaction: Avoid use with ginkgo biloba. Based on patient request - if ordered for moderate or severe pain, provider allows for administration of a medication prescribed for a lower pain scale. Do not exceed 4 grams of aspirin in a 24 hr period. If given for pain, use the following pain scale: Mild Pain = Pain Score of 1-3, CPOT 1-2 Moderate Pain = Pain Score of 4-6, CPOT 3-4 Severe Pain = Pain Score of 7-10, CPOT 5-8 1105 (Given - Provid er: Shelley Pena RN) diphenhydrAMINE (BENADRYL) capsule 50 mg (COMPLETED) 50 mg, Oral, Once, On Mon02/17/25 at 0705, For 1 dose, Caution: Look alike/sound alike drug alert. This med may be ordered in other forms and routes. Before giving verify the last time the drug was given by any route/form. 0712 (Given - Provid er: Muna Rothman RN) sodium chloride 0.9 % bolus 330 mL (COMPLETED) 330 mL, Intravenous, at 330 mL/hr, Administer over 1 Hours, Once Over 1 Hour, On Mon02/17/25 at 0627, For 1 dose, Administer One Hour Prior to Receiving IV Contrast 0656 (New Bag - Prov ider: Muna Rothman RN) Continuous Medication Order 02/15/2025 02/16/2025 02/17/2025 sodium chloride 0.9 % infusion 100 mL/hr, Intravenous, Continuous, Starting on Mon02/17/25 at 0836, For 5 hours 0840 (Restarted - Pr ovider: Shelley Pena RN)1445 (Due: Order Ending - Provider: Automatic Discharge Provider - Comment: [Order ends at this time. Document the following action when infusion is complete: Stopped]) PRN Medication Order 02/15/2025 02/16/2025 02/17/2025 acetaminophen (TYLENOL) tablet 650 mg 650 mg, Oral, Every 4 Hours PRN, Mild Pain, Fever, temperature greater than 101F, Starting on Mon02/17/25 at 0833, If given for fever, use fever parameter: fever greater than 100.4 F Based on patient request - if ordered for moderate or severe pain, provider allows for administration of a medication prescribed for a lower pain scale. Do not exceed 4 grams of acetaminophen in a 24 hr period. Max dose of 2gm for AST/ALT greater than 120 units/L. If given for pain, use the following pain scale: Mild Pain = Pain Score of 1-3, CPOT 1-2 Moderate Pain = Pain Score of 4-6, CPOT 3-4 Severe Pain = Pain Score of 7-10, CPOT 5-8 diphenhydrAMINE (BENADRYL) injection (CANCELED) Code / Trauma / Sedation Medication, Starting on Mon02/17/25 at 0807 0807 (Given - Provid er: Camron Negron RN) heparin (porcine) injection (CANCELED) Code / Trauma / Sedation Medication, Starting on Mon02/17/25 at 0751 0751 (Given - Provid er: Camron Negron RN)0805 (Given - Provider: Camron Negron RN) heparin (porcine) injection (CANCELED) Code / Trauma / Sedation Medication, Starting on Mon02/17/25 at 0742 0742 (Given - Provid er: Emir Morales MD) iopamidol (ISOVUE-370) 76 % injection (CANCELED) Code / Trauma / Sedation Medication, Starting on Mon02/17/25 at 0828 0828 (Given - Provid er: Emri Morales MD) labetalol (NORMODYNE,TRANDATE) injection (CANCELED) Code / Trauma / Sedation Medication, Starting on Mon02/17/25 at 0813 0813 (Given - Provid er: Camron Negron RN) lidocaine PF 1% (XYLOCAINE) injection (CANCELED) Code / Trauma / Sedation Medication, Starting on Mon02/17/25 at 0741 0741 (Given - Provid er: Emir Morales MD) methylPREDNISolone sodium succinate (SOLU-Medrol) injection (CANCELED) Code / Trauma / Sedation Medication, Starting on Mon02/17/25 at 0739 0739 (Given - Provid er: Camron Negron RN - Comment: Allergy acknowledged by Dr. Morales- benefit outweighs risk) midazolam (VERSED) injection (CANCELED) Code / Trauma / Sedation Medication, Starting on Mon02/17/25 at 0739 0739 (Given - Provid er: Camron Negron, ANNIKA) niCARdipine (CARDENE) syringe (CANCELED) Code / Trauma / Sedation Medication, Starting on Mon02/17/25 at 0742 0742 (Given - Provid er: Emir Morales MD) nitroglycerin (NITROSTAT) SL tablet 0.4 mg 0.4 mg, Sublingual, Every 5 Minutes PRN, Chest Pain, Starting on Mon02/17/25 at 0833, Notify Provider if Pain Unrelieved After 3 Doses May administer up to 3 doses per episode. Hold if SBP less than 100. nitroglycerin 100 mcg/mL in D5W syringe (CANCELED) Code / Trauma / Sedation Medication, Starting on Mon02/17/25 at 0813 0813 (Given - Provid er: Emir Morales MD) nitroglycerin 100 mcg/mL in D5W syringe (CANCELED) Code / Trauma / Sedation Medication, Starting on Mon02/17/25 at 0742 0742 (Given - Provid er: Emir Morales MD) prasugrel (EFFIENT) tablet (CANCELED) Code / Trauma / Sedation Medication, Starting on Mon02/17/25 at 0830 0830 (Given - Provid er: Camron Negron, ANNIKA) documented in this encounter Care Teams Top Cutter Relationship Specialty Start Date End Date Delmer Fritz MD [address] [place] [address] PCP - General Family Medicine 08/07/24 documented as of this encounter
--- OUTSIDE RECORDS SUMMARY | 2025-02-17 07:00 | XMS_ITS | Encounter Summary ---
Author Organization [facility] ystem Address [address] [place] [address] Care Team Providers Care Room Service Waiter Name Role Phone Delmer Fritz MD Primary Care Provider [phone] Reason for Visit * Auth/Cert (Routine) Specialty Diagnoses / Procedures Referred By Contac t Referred To Contact Diagnoses Chest pain, unspecified type Abnormal nuclear stress test Procedures [place] CATH PLMT L HRT & ARTS W/NJX & ANGIO IMG S&I Left Heart Cath Referral ID Status Reason Start Date Expiration Date Visits Re quested Visits Authorized [id number] 1 1 Encounter Details Date Type Department Care Team (Late st Contact Info) Description 02/17/2025 8:00 AM EDT - 02/17/2025 9:00 AM EDT Surgery [facility] MIX CRUSHER OPERATOR [address] [place] [id number] Emir Morales MD [address] [facility] [address] [place] [address] Left Heart Cath - Right radial access [75238 (CPT )] Social History Tobacco Use Types Packs/Day Years [...] 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 Wish to be (Past 1 Month) No 025 6:45 AM EDT RothmanMuna bro RN 2. Non-Specific Active Suici tyrone Thoughts (Past 1 Month) No 02/17/2025 6:45 AM EDT Chip Rothman RN * Calculated C-SSRS Risk Score (Lifetime/Recent) Answer Date of Assessment Author No Risk Indicated 02/17/2025 6:45 AM EDT Muna Cardozo RN * [place] Suicide Severity Rating Scale (Screener/Recent Self-Report) Question Answer Date of Assessment Author 6. Suicidal Behavior (Lifetime) No 6:45 AM EDT Muna Rothman RN documented as of this encounter Discharge Instructions * Attachments The following attachments cannot be sent through Care Everywhere. * Radial Site Care ([place]) * Moderate Conscious Sedation Adult Care After ([place]) * Coronary Angiogram With Stent ([place]) * Aspirin Tablets ([place]) * Prasugrel Tablets ([place]) * Steps to Quit Smoking ([place]) * Managing the Challenge of Quitting Smoking ([place]) documented in this encounter Medications at Time [...] Morales MD - 02/17/2025 7:10 AM EDT [facility] IP Progress Note Chief Complaint: Dyspnea/HFpEF/abnormal stress test Subjective The patient is a 59-year-old male with symptoms of dyspnea on exertion and chronic edema. He has been managed for HFpEF and had a myocardial perfusion stress test for ischemic evaluation which was abnormal. He is not referred for cardiac attrition study by his primary finisher wallboard and plasterboard Dr. Armstrong. Patient reports a contrast allergy as well as steroid allergy . Objective Blood pressure (!) 187/103, pulse 67, temperature 97.8 ??F (36.6 ??C), temperature source Temporal,resp. rate 14, height 182.9 cm (72 ), weight 115 kg (253 lb 15.5 oz), SpO2 93%. No intake or output data in the 24 hours ending 02/17/25711 Physical Exam: General: No acute distress. Neck: no JVD. Chest:No respiratory distress, breath sounds are normal. No wheezes, rhonchi or rales. Cardiovascular: Normal S1 and S2, no murmur, gallop or rub. Extremities: Trace edema and hyperpigmentation with chronic stasis changes. Right radial Barbeau test is normal Results Review: I reviewed the patient's new clinical results. Invalid input(s): JUAN FONTENOT No results found for: CKTOTAL , CKMB [...] medical management per guidelines. Emir Morales MD, [facility], [facility] documented in this encounter Consult Notes * Cruz Salazar RN - 02/17/2025 8:49 AM EDT Chart review for hospital educator consult. At the time of this [...] ECG No previous ECGs available Confirmed by ANTWAN NAZARIO ([id number]) on 02/20/2025 8:33:16 AM Referred By: Confirmed By: ANTWAN NAZARIO Procedure Note Antwan Nazario MD - 02/20/2025 Test Reason : [...] ECG No previous ECGs available Confirmed by ANTWAN NAZARIO ([id number]) on 02/20/2025 8:33:16 AM Referred By: Confirmed By: ANTWAN NAZARIO us Emir Morales MD ECG ORDERABLES Final Result [...] percutaneous anterior wall puncture technique. A 6 Setswana arterial sheath was placed. Above procedures were [...] No specimen was collected during the case. Emir Morales MD CV CARDIAC CATH ORDERABLES Edite d Result - Final * (ABNORMAL) POC Activated Clotting Time (02/17/2025 8:16 AM EDT) Activated Clotting Time 389(H) 82 - 152 Seconds 02/17/2025 12:10 PM EDT [facility] Comment:Serial Number: [id number]: [id number] Blood 02/17/2025 8:16 AM EDT 02/17/2025 12:10 PM EDT Emir Morales MD POINT OF CARE TEST ORDERABLES Fi nal Result [facility]
[address] [place] [address], * Telemetry Scan (02/17/2025 7:14 AM EDT) [facility] ECG ORDERABLES Final Result * (ABNORMAL) POC Creatinine (02/17/2025 6:57 AM EDT) Creatinine 1.40(H) 0.60 - 1.30 mg/dL 02/17/2025 7:15 AM EDT [facility] Comment:Serial Number: [id number]: [id number] Blood 02/17/2025 6:57 AM EDT 02/17/2025 7:15 AM EDT Emir Morales MD POINT OF CARE TEST ORDERABLES Fi nal Result [facility]
[address] [place] [address], * (ABNORMAL) Lipid Panel (02/17/2025 6:55 AM EDT) Total Cholesterol 125 0 - 200 mg/dL 02/17/2025 7:38 AM EDT [facility] Triglycerides 78 0 - 150 mg/dL 02/17/2025 7:38 AM EDT [facility] HDL Cholesterol 31(L) 40 - 60 mg/dL 02/17/2025 7:38 AM EDT [facility] LDL Cholesterol 78 0 - 100 mg/dL 02/17/2025 7:38 AM EDT [facility] VLDL Cholesterol 16 5 - 40 mg/dL 02/17/2025 7:38 AM EDT [facility] LDL/HDL Ratio 2.53 02/17/2025 7:38 AM EDT [facility] Blood Line / Unknown 02/17/2025 6: 55 AM EDT 02/17/2025 7:13 AM EDT Narrative [facility] - 02/17/2025 7:38 AM EDT Cholesterol [...] LAB BLOOD ORDERABLES Final Resul t [facility]
[address] [place] [address], * Hemoglobin A1c (02/17/2025 6:55 AM EDT) Hemoglobin A1C 5.16 4.80 - 5.60 % 02/17/2025 8:32 AM EDT [facility] Blood Line / Unknown 02/17/2025 6: 55 AM EDT 02/17/2025 7:12 AM EDT Narrative [facility] - 02/17/2025 8:32 AM EDT Hemoglobin A1C Ranges: Increased Risk for Diabetes 5.7% to 6.4% Diabetes >= 6.5% Diabetic Goal < 7.0% Emir Morales MD LAB BLOOD ORDERABLES Final Resul t [facility]
[address] [place] [address], * (ABNORMAL) Basic Metabolic Panel (02/17/2025 6:55 AM EDT) Glucose 90 65 - 99 mg/dL 02/17/2025 7:38 AM EDT [facility] BUN 8.0 6.0 - 20.0 mg/dL 02/17/2025 7:38 AM EDT [facility] Creatinine 1.29(H) 0.76 - 1.27 mg/dL 02/17/2025 7:38 AM EDT [facility] Sodium 141 136 - 145 mmol/L 02/17/2025 7:38 AM EDT [facility] Potassium 3.5 3.5 - 5.2 mmol/L 02/17/2025 7:38 AM EDT [facility] Chloride 104 98 - 107 mmol/L 02/17/2025 7:38 AM EDT [facility] CO2 27.5 22.0 - 29.0 mmol/L 02/17/2025 7:38 AM EDT [facility] Calcium 8.9 8.6 - 10.5 mg/dL 02/17/2025 7:38 AM EDT [facility] BUN/Creatinine Ratio 6.2(L) 7.0 - 25.0 02/17/2025 7:38 AM EDT [facility] Anion Gap 9.5 5.0 - 15.0 mmol/L 02/17/2025 7:38 AM EDT [facility] eGFR 64.7 >60.0 mL/min/1.7 3 02/17/2025 7:38 AM EDT [facility] Blood Line / Unknown 02/17/2025 6: 55 AM EDT 02/17/2025 7:13 AM EDT [facility] - 02/17/2025 7:38 AM EDT GFR [...] LAB BLOOD ORDERABLES Final Resul t [facility]
[address] [place] [address], * (ABNORMAL) CBC (No Diff) (02/17/2025 6:55 AM EDT) WBC 7.66 3.40 - 10.80 10*3/mm3 02/17/2025 7:28 AM EDT [facility] RBC 5.14 4.14 - 5.80 10*6/mm3 02/17/2025 7:28 AM EDT [facility] Hemoglobin 15.9 13.0 - 17.7 g/dL 02/17/2025 7:28 AM EDT [facility] Hematocrit 48.2 37.5 - 51.0 % 02/17/2025 7:28 AM EDT [facility] MCV 93.8 79.0 - 97.0 fL 02/17/2025 7:28 AM EDT [facility] MCH 30.9 26.6 - 33.0 pg 02/17/2025 7:28 AM EDT [facility] MCHC 33.0 31.5 - 35.7 g/dL 02/17/2025 7:28 AM EDT [facility] RDW 12.6 12.3 - 15.4 % 02/17/2025 7:28 AM EDT [facility] RDW-SD 43.5 37.0 - 54.0 fl 02/17/2025 7:28 AM EDT [facility] MPV 12.5(H) 6.0 - 12.0 fL 02/17/2025 7:28 AM EDT [facility] Platelets 135(L) 140 - 450 10*3/mm3 02/17/2025 7:28 AM EDT [facility] Blood Line / Unknown 02/17/2025 6: 55 AM EDT 02/17/2025 7:12 AM EDT Emir Morales MD LAB BLOOD ORDERABLES Final Resul t [facility]
[address] [place] [address], documented in this encounter Visit Diagnoses Diagnosis [...] Given 02/17/2025 7:12 AM EDT 50 mg diphenhydrAMINE (BENADRYL) injection Code / Trauma / Sedation Medication, Starting on Mon02/17/25 at 0807 Given 02/17/2025 8:07 AM EDT 50 mg heparin (porcine) injection Code / Trauma / Sedation Medication, Starting on Mon02/17/25 at 0751 Given 02/17/2025 8:05 AM EDT 5,000 Units Given 02/17/2025 7:51 AM EDT 6,600 Units heparin (porcine) injection Code / Trauma / Sedation Medication, Starting on Mon02/17/25 at 0742 Given 02/17/2025 7:42 AM EDT 5,000 Units iopamidol (ISOVUE-370) 76 % injection Code / Trauma / Sedation Medication, Starting on Mon02/17/25 at 0828 Given 02/17/2025 8:28 AM EDT 160 mL labetalol (NORMODYNE,TRANDATE) injection Code / Trauma / Sedation Medication, Starting on Mon02/17/25 at 0813 Given 02/17/2025 8:13 AM EDT 40 mg lidocaine PF 1% (XYLOCAINE) injection Code / Trauma / Sedation Medication, Starting on Mon02/17/25 at 0741 Given 02/17/2025 7:41 AM EDT 5 mL Wrist Right methylPREDNISolone sodium succinate (SOLU-Medrol) injection Code / Trauma / Sedation Medication, Starting on Mon02/17/25 at 0739 Given 02/17/2025 7:39 AM EDT 125 mg midazolam (VERSED) injection Code / Trauma / Sedation Medication, Starting on Mon02/17/25 at 0739 Given 02/17/2025 7:39 AM EDT 2 mg niCARdipine (CARDENE) syringe Code / Trauma / Sedation Medication, Starting on Mon02/17/25 at 0742 Given 02/17/2025 7:42 AM EDT 200 mcg nitroglycerin 100 mcg/mL in D5W syringe Code / Trauma / Sedation Medication, Starting on Mon02/17/25 at 0813 Given 02/17/2025 8:13 AM EDT 200 mcg nitroglycerin 100 mcg/mL in D5W syringe Code / Trauma / Sedation Medication, Starting on Mon02/17/25 at 0742 Given 02/17/2025 7:42 AM EDT 200 mcg prasugrel (EFFIENT) tablet Code / Trauma / Sedation Medication, Starting on Mon02/17/25 at 0830 Given 02/17/2025 8:30 AM EDT 60 mg sodium chloride 0.9 % bolus 330 mL 330 mL, Intravenous, at 330 mL/hr, Administer over 1 Hours, Once Over 1 Hour, On Mon02/17/25 at 0627, For 1 dose, Administer One Hour Prior to Receiving IV ContrastIndications:Abno rmal nuclear stress test New Bag 02/17/2025 6:56 [...] 0656 (New Bag - Prov ider: Muna Rotmhan RN) Continuous Medication Order 02/15/2025 02/16/2025 02/17/2025 [...] 0807 0807 (Given - Provid er: Camron Negron, RN) heparin (porcine) injection (CANCELED) Code / [...] 0739 (Given - Provid er: Camron Negron, RN) niCARdipine (CARDENE) syringe (CANCELED) Code / Trauma [...] 0830 0830 (Given - Provid er: Camron Negron RN) documented in this encounter Care Teams Room Service Waiter Relationship Specialty Start Date End Date Delmer Fritz MD [address] [place] [address] PCP - General Family Medicine 08/07/24 documented as of this encounter
--- OUTSIDE RECORDS SUMMARY | 2025-02-20 13:30 | XMS_ITS | Encounter Summary ---
Author Organization Healthcare Address [address] [place] [address] Care Team Providers Care Cheese Cook Name Role Phone Ángela Millard COACH DRIVER Unavailable [phone] Inna Serrano APRN Primary Care Provider [phone] Reason for Visit * Reason Comments Follow-up Back Pain Encounter Details Date Type Department Care Team (Late st Contact Info) Description 02/20/2025 2:30 PM EDT Office Visit Physical Medicine & Rehabilitation Clinic at [facility] [address] [place] [place] [address] Leslie Suarez DO [address] [facility] [address] [place] [address] Chronic bilateral low back pain without sciatica (Primary Dx) Social History Tobacco Use Types [...] Date Recorded Patient Health Questionnaire-2 Score 0 02/20/2025 PHQ-2A Answer Date Recorded Patient Health Questionnaire-2 Score 0 03/23/2023 Sex and Gender Information Value Date Recorded Sex Assigned at Not on file Legal Sex Male 8:01 PM EDT Gender Identity Not on file Sexual Orientation Not on file documented as of this encounter Last Filed Vital Signs Vital Sign Reading Time Taken Comments Blood Pressure 123/76 02/20/2025 2:39 PM EDT Princess e reading Pulse - - Temperature - - Respiratory Rate - - Oxygen Saturation - - Inhaled Oxygen Concentration - - Weight 105 kg (232 lb) 02/20/2025 2:39 PM EDT Height 182.9 cm (6') 02/20/2025 2:39 PM EDT Body Mass Index 31.46 02/20/2025 2:39 PM EDT documented in this encounter Functional Status * Over the past 2 weeks, how often have you been bothered by any of the following problems? Question Answer Date of Assessment Author Little interest or pleasure in doing things Not at all 02/20/2025 2:45 PM EDT Angélica Gonzales LPN Feeling down, depressed, or hopeless Not at all 02/20/2025 2:45 PM EDT Angélica Gonzales LPN Patient Health Questionnaire-2 Score 0 02/20/2025 2:45 PM EDT Arben Gonzales LPN * Calculated C-SSRS Risk Score (Lifetime/Recent) Answer Date of Assessment Author No Risk Indicated 02/20/2025 2:45 PM EDT Angélica Sandy LPN * How difficult have these problems made it for you to do your work, take care of things at home, or get along with other people? Answer Date of Assessment Author Not difficult at all 02/20/2025 2:45 PM EDT Angélica Lester LPN * Question Answer Date of Assessment Author 1. Wish to be (Past 1 Month) No 02/20/2025 2:45 PM EDT Angélica Gonzales LPN 2. Non-Specific Active Suicidal Thoughts (Past 1 Month) No 02/20/2025 2:45 PM EDT Angélica Gonzales LPN 6. Suicidal Behavior (Lifetime) No 02/20/2025 2:45 PM EDT Angélica Gonzales LPN documented as of this encounter Miscellaneous Notes * Progress Notes - Leslie Suarez DO - 02/20/2025 2:30 PM EDT Images from the original note were not included. PHYSICAL MEDICINE AND REHABILITATION OUTPATIENT CLINIC NOTE Chief Complaint: Follow up and need for med refills, pain in neck/back/feet Background History: Luca Kauffman is a 58 y.o. year old male presenting with chronic low back painand med refills Interval History: the patient was last seen in clinic 3 months ago. Notes he underwent 2 cardiac stent placements on Monday and is to start cardiac rehab once insurance approves it. Also dx with CKD III and is monitoring his kidney function. Back pain worse since his procedure but doing ok. Leg pain about the same. 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 Does not need any meds refills. Still getting around ok. His goal is to stay active to be able to walk his daughter down the aisle at her wedding nextJuly. Bowel: continent Bladder: continent Skin: discoloration of forefoot bilaterally and impacted by swelling Equipment needs: none Spasticity: none Mood/behavior: stable Med refill needs: hydrocodone Current Therapy: None Other needs: None Details of past medical history, surgical history, family history, and social history reviewed in the medical record. Allergies: Allergies Allergen Reactions Amlodipine Swelling Ciprofloxacin Anaphylaxis, Other - please document in [...] 1 (one) time each day., Disp:, Rfl: aspirin 81 MG EC tablet, Take 1 tablet by mouth daily., Disp: , Rfl: bumetanide (Bumex) 1 MG tablet, Take 1 tablet by mouth 2 times a day., Disp: , Rfl: carvedilol (Coreg) 12.5 MG tablet, Take 1 tablet by mouth 2 times a day., Disp: 90 tablet, Rfl: 3 cyclobenzaprine (Flexeril) 5 MG tablet, Take 1 tablet by mouth 2 times a day., Disp: 120 tablet, Rfl: 3 EPINEPHrine (Epipen) 0.3 MG/0.3ML injection syringe, , Disp: , Rfl: HYDROcodone-acetaminophen ([place]) 5-325 MG tablet, Take 1 tablet by [...] (10 mg) by mouth., Disp: , Rfl: NIFEdipine XL (Procardia XL) 90 MG 24 hr tablet, Take 1 tablet by mouth every evening., Disp: 90 tablet, Rfl: 3 nitroglycerin (Nitrostat) 0.4 MG SL tablet, , Disp: , Rfl: pantoprazole (Protonix) 40 MG EC tablet, , Disp: , Rfl: promethazine (Phenergan) 25 MG tablet, Take 1 tablet (25 mg) by mouth., Disp: , Rfl: rosuvastatin (Crestor) 40 MG tablet, , Disp: , Rfl: tamsulosin (Flomax) 0.4 MG 24 hr capsule, Take 1 capsule by mouth daily., Disp: , Rfl: diclofenac (Voltaren) 1 % topical gel, as needed., Disp: , Rfl: doxazosin (Cardura) 4 MG tablet, Take 1 tablet by mouth nightly., Disp: , Rfl: naloxone (Narcan) 4 mg/0.1 mL nasal spray, 1. Give 1 spray in nostril for no/slow breathing or cannot wake after opioid use 2. Call 911 3. Repeat in other nostril if symptoms continue, Disp: 1 each, Rfl: 0 sacubitril-valsartan (Entresto) 97-103 MG tablet, Take 1 tablet by mouth twice a day., Disp: , Rfl: ROS: 14 point ROS negative except for above. Physical Examination: 09/24/2024 10:16 AM 09/24/2024 10:23 AM 11/11/2024 1:27 PM 01/08/2025 1:59 PM 01/08/2025 2:03 PM 01/08/2025 2:18 PM 02/20/2025 2:39 PM Vitals Systolic 174 181 161 157 156 186 123 Diastolic 100 130 103 100 100 110 76 Heart Rate 81 71 Temp 36.8 C Resp 18 Height (cm) 182.9 cm 182.9 cm 182.9 cm 182.9 cm Weight (kg) 113.3 kg 105.235 kg 114.76 kg 105.235 kg BMI 33.88 kg/m2 31.46 kg/m2 34.31 kg/m2 31.46 kg/m2 BSA (m2) 2.4 m2 2.31 m2 2.42 m2 2.31 m2 Visit Report Report Report [...] or dysarthria Assessment: Luca Kauffman is a 59 y.o. 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 Yes Authorizations and Agreements/Telemedicine Consent sent and consent confirmed? Yes Patient Location: Patient's Home Patient confirms they are physically located in [place]? Yes If the patient is not physically located in [place], the provider has confirmed with Legal thatthe provider is authorized to provide services in patient's stated location? Yes Provider Location: HealthCare Facility Audio and video or audio only? Audio and video Total visit time: 30 minutes Electronically Signed by: Leslie Morrison DO - 02/20/2025 - 2:48 PM documented in this encounter Plan of Treatment Upcoming Encounters Date Type Department Care Team (Late st Contact Info) Description 04/08/2025 12:00 PM EST Office Visit Professional [facility] Nephrology, Bone & Mineral Metabolism [address], [address] [place] [address] David Workman MD [address] [place] [address] 05/19/2025 1:00 PM EST Office Visit Physical Medicine & Rehabilitation Clinic at [facility] [address] [place] [address] Leslie Suarez DO [address] [place] [address] 09/30/2025 10:10 AM EDT Appointment [facility] Radiology [address] [place] [address] 09/30/2025 11:30 AM EDT Office Visit [facility] Head, Neck & Respiratory [address] [facility]nd [place] [address] Aysha Crews MD [address] [facility] [address] [place] [address] documented as of this encounter Visit Diagnoses Diagnosis Chronic bilateral low back pain without sciatica- Primary documented in this encounter Additional Health Concerns Assessment Noted Time A fall risk assessment has been complete d for the patient 02/20/2025 2:45 PM EDT A Body Mass Index follow-up plan has been documented for the patient 02/20/2025 3:10 PM EDT documented as of this encounter Care Teams Cheese Cook Relationship Specialty Start Date End Date Inna Serrano APRN [address] [place] [address] PCP - General 02/19/24 Ángela Millard APRN [address] [facility] [address] [place] [address] Nurse Practitioner Neurosurgery 09/17/21 documented as of this encounter
--- OUTSIDE RECORDS SUMMARY | 2025-04-02 12:36 | XMS_ITS | Clinical Summary ---
[facility] Organization [facility] Address [address] [place] [address] Care Team Providers Care Air Transportation Provider Name Role Phone Delmer Fritz MD Primary Care Provider [phone] Allergies Active Allergy Reactions Criticality Noted Date [...] the same reaction to all steroids Shellfish Protein-Containing Drug Products Anaphylaxis,Swellin g High 09/06/2018 Medications isosorbide mononitrate (IMDUR) 30 MG 24 hr tablet Take 1 tablet by mouth Daily. 06/11/2018 Active HYDROcodone-acet aminophen (NORCO) 5-325 MG per tablet Take 2 tablets by mouth 4 (Four) Times a Day. 06/28/2018 Active nitroglycerin (NITROSTAT) 0.[address] 1 tablet under the tongue Every 5 (Five) Minutes As Needed for Chest Pain. Take no more than 3 doses in 15 minutes. Active pantoprazole (PROTONIX) 40 MG EC tablet Take 1 tablet by mouth Daily. Active ondansetron (ZOFRAN) 4 MG tablet Take 1 tablet by mouth As Needed. 11/21/2018 Active promethazine (PHENERGAN) 25 MG tablet Take 1 tablet by mouth Every 6 (Six) Hours As Needed. 11/21/2018 Active cyclobenzaprine (FLEXERIL) 5 MG tablet Take 1 tablet by mouth 3 times a day. 07/17/2023 Active benzonatate (TESSALON) 100 MG capsule Take 1 capsule by mouth 3 (Three) Times a Day As Needed for Cough. Active metoprolol succinate XL (TOPROL-XL) 100 MG 24 hr tablet 1 tablet Daily. 09/28/2023 Active doxazosin (CARDURA) 4 MG tablet Take 1 tablet by mouth Daily. 09/28/2023 Active EPINEPHrine (EPIPEN) 0.3 MG/0.3ML solution auto-injector injection Active rosuvastatin (CRESTOR) 40 MG tablet Take 1 tablet by mouth Every Night. 07/17/2023 Active metoclopramide (REGLAN) 10 MG tablet Take 1 tablet by mouth 4 (Four) Times a Day Before Meals & at Bedtime. Active sacubitril-valsa rtan (Entresto) 97-103 MG tablet Take 1 tablet by mouth 2 (Two) Times a Day. Active amLODIPine (NORVASC) 5 MG tablet Take 1 tablet by mouth Daily. 90 tablet 1 02/17/2025 9:50 AM EDT 02/17/2025 Active aspirin 81 MG EC tablet Take 1 tablet by mouth Daily. 100 tablet 1 02/17/2025 9:50 AM EDT 02/17/2025 Active prasugrel (EFFIENT) 10 MG tablet Take 1 tablet by mouth Daily. 90 tablet 3 02/17/2025 9:50 AM EDT 02/17/2025 Active Active Problems Problem Noted Date Diagnosed Date Chest pain 02/05/2025 Abnormal nuclear stress test 02/05/2025 Bilateral pulmonary nodules (Largest 8mm in LLL) Incidental 08/21/2018 Tobacco abuse (Resolved x 1 month) 08/21/2018 Stage IV (very severe) COPD 08/21/2018 H/O Asbestos exposure 08/21/2018 Chronic back pain (Chronic narcotics) 08/21/2018 Encounters Date Type Department Care Team Description 02/24/2025 Telephone [facility] CARDIAC REHABILIATATION [address] [place] [address] Lakshmi Vazquez RN 02/19/[address] 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 [address] [facility] [address] Emir Morales MD 02/10/[address] [facility] [address] [facility] [address] Emir Morales MD 01/29/2025 12:15 PM EDT - 01/29/2025 11:59 PM EDT Hospital Encounter [facility] [address] [place] [address] Discharge Disposition: Home or Self Care 01/29/2025 10:32 AM EDT - 01/29/2025 11:59 PM EDT Hospital Encounter [facility] [address] [place] [address] Chest pain, precordial Discharge Disposition: Home or [...] 0.3 38.9 Started: 1986 Smokeless Tobacco: Former Tobacco Cessation:Ready [...] Job Start Date Job 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 A 6 [place] arterial sheath was placed. Above procedures were [...] - 152 Seconds 02/17/2025 12:10 PM EDT [facility] Comment:Serial Number: [id number]: [id number] Blood 02/17/2025 8:16 AM EDT 02/17/2025 12:10 PM EDT us Emir Morales MD POINT OF CARE TEST ORDERABLES Fi nal Result [facility]
[address] [place] [address], * Telemetry Scan (02/17/2025 7:14 AM EDT) [facility] Onbase ECG ORDERABLES Final Result * (ABNORMAL) POC Creatinine (02/17/2025 6:57 AM EDT) Creatinine 1.40(H) 0.60 - 1.30 mg/dL 02/17/2025 7:15 AM EDT [facility] Comment:Serial Number: [id number] 9Operator: [id number] Blood 02/17/2025 6:57 AM EDT 02/17/2025 7:15 AM EDT Emir Morales MD POINT OF CARE TEST ORDERABLES Fi nal Result [facility]
[address] [place] [address], * (ABNORMAL) CBC (No Diff) (02/17/2025 6:55 AM EDT) WBC 7.66 3.40 - 10.80 10*3/mm3 02/17/2025 7:28 AM EDT [facility] RBC 5.14 4.14 - 5.80 10*6/mm3 02/17/2025 7:28 AM EDT [facility] Hemoglobin 15.9 13.0 - 17.7 g/dL 02/17/2025 7:28 AM EDT [facility] Hematocrit 48.2 37.5 - 51.0 % 02/17/2025 7:28 AM EDT [facility] MCV 93.8 79.0 - 97.0 fL 02/17/2025 7:28 AM EDT [facility] MCH 30.9 26.6 - 33.0 pg 02/17/2025 7:28 AM EDT [facility] MCHC 33.0 31.5 - 35.7 g/dL 02/17/2025 7:28 AM EDT [facility] RDW 12.6 12.3 - 15.4 % 02/17/2025 7:28 AM EDT [facility] RDW-SD 43.5 37.0 - 54.0 fl 02/17/2025 7:28 AM EDT [facility] MPV 12.5(H) 6.0 - 12.0 fL 02/17/2025 7:28 AM EDT [facility] Platelets 135(L) 140 - 450 10*3/mm3 02/17/2025 7:28 AM EDT [facility] Blood Line / Unknown 02/17/2025 6: 55 AM EDT 02/17/2025 7:12 AM EDT us Emir Morales MD LAB BLOOD ORDERABLES Final Resul t Performing Organization Address City/[facility] Co de Phone Number [facility]
[address] [place] [address], * Hemoglobin A1c (02/17/2025 6:55 AM EDT) Hemoglobin A1C 5.16 4.80 - 5.60 % 02/17/2025 8:32 AM EDT [facility] Blood Line / Unknown 02/17/2025 6: 55 AM EDT 02/17/2025 7:12 AM EDT Narrative [facility] - 02/17/2025 8:32 AM EDT Hemoglobin A1C Ranges: Increased Risk for Diabetes 5.7% to 6.4% Diabetes >= 6.5% Diabetic Goal < 7.0% us Emir Morales MD LAB BLOOD ORDERABLES Final Resul t Performing Organization Address [facility] de Phone Number [facility]
[address] [place] [address], * (ABNORMAL) Lipid Panel (02/17/2025 6:55 AM EDT) Total Cholesterol 125 0 - 200 mg/dL 02/17/2025 7:38 AM EDT [facility] Triglycerides 78 0 - 150 mg/dL 02/17/2025 7:38 AM EDT [facility] HDL Cholesterol 31(L) 40 - 60 mg/dL 02/17/2025 7:38 AM EDT [facility] LDL Cholesterol 78 0 - 100 mg/dL 02/17/2025 7:38 AM EDT [facility] VLDL Cholesterol 16 5 - 40 mg/dL 02/17/2025 7:38 AM EDT [facility] LDL/HDL Ratio 2.53 02/17/2025 7:38 AM EDT [facility] Blood Line / Unknown 02/17/2025 6: 55 AM EDT 02/17/2025 7:13 AM EDT Narrative [facility] - 02/17/2025 7:38 AM [...] MD LAB BLOOD ORDERABLES Final Resul t [facility]
[address] [place] [address], * (ABNORMAL) Basic Metabolic Panel (02/17/2025 6:55 AM EDT) Glucose 90 65 - 99 mg/dL 02/17/2025 7:38 AM EDT [facility] BUN 8.0 6.0 - 20.0 mg/dL 02/17/2025 7:38 AM EDT [facility] Creatinine 1.29(H) 0.76 - 1.27 mg/dL 02/17/2025 7:38 AM EDT [facility] Sodium 141 136 - 145 mmol/L 02/17/2025 7:38 AM EDT [facility] Potassium 3.5 3.5 - 5.2 mmol/L 02/17/2025 7:38 AM EDT [facility] Chloride 104 98 - 107 mmol/L 02/17/2025 7:38 AM EDT [facility] CO2 27.5 22.0 - 29.0 mmol/L 02/17/2025 7:38 AM EDT [facility] Calcium 8.9 8.6 - 10.5 mg/dL 02/17/2025 7:38 AM EDT [facility] BUN/Creatinine Ratio 6.2(L) 7.0 - 25.0 02/17/2025 7:38 AM EDT [facility] Anion Gap 9.5 5.0 - 15.0 mmol/L 02/17/2025 7:38 AM EDT [facility] eGFR 64.7 >60.0 mL/min/1.7 3 02/17/2025 7:38 AM EDT [facility] Blood Line / Unknown 02/17/2025 6: 55 AM EDT 02/17/2025 7:13 AM EDT [facility] - 02/17/2025 7:38 AM EDT [...] MD LAB BLOOD ORDERABLES Final Resul t [facility]
[address] [phone] * LABS SCANNED (02/14/2025) us Emir Morales MD LAB BLOOD ORDERABLES [...] during recovery: occasional PAC's, occasional PVC's. Test Lead C Developer ECG Nelsonia Antwan Armstrong MD CV STRESS ORDERABLES Final Result from Last 3 Months Insurance [employer] Care Teams Air Transportation Provider Relationship Specialty Start Date End Date Delmer Fritz MD [address] [place] [address] PCP - General Family Medicine 08/07/24
--- OUTSIDE RECORDS SUMMARY | 2025-04-02 12:36 | XMS_ITS | Encounter Summary ---
Author Organization [facility] Address [address] [place] [address] Care Team Providers Care Resolution Agent Name Role Phone Ángela Millard FLORAL ARRANGER Unavailable Inna Serrano FLORAL ARRANGER Primary Care Provider [phone] Encounter Details Date Type Department Care Team ([facility] Contact Info) Description 03/28/2025 Telephone [facility] Nephrology, Bone & Mineral Metabolism [address] , [address] [place] [address] Petra Loya Social History Tobacco Use Types Packs/Day Years [...] Upcoming Encounters Date Type Department Care Team ([facility] Contact Info) Description 04/08/2025 12:00 PM EST Office Visit [facility] Nephrology, Bone & Mineral Metabolism [address] , [address] [place] [address] David Workman MD [address] [place] [address] 05/19/2025 1:00 PM EST Office Visit [facility] [address] [place] [address] Adonis Morrison Leslie, DO [address] [place] [address] 09/30/2025 10:10 AM EDT Appointment [facility] Radiology [address] [place] [address] 09/30/2025 11:30 AM EDT Office Visit [facility] Res[facility] [address] [place] [address] Aysha Crews MD [address] [place] [address] documented as of this encounter Visit Diagnoses Not on filedocumented in this encounter Additional Health Concerns Assessment Noted Time A fall risk assessment has been complete d for the patient 02/20/2025 2:45 PM EDT A Body Mass Index follow-up plan has been documented for the patient 02/20/2025 3:10 PM EDT documented as of this encounter Care Teams Resolution Agent Relationship Specialty Start Date End Date Inna Serrano APRN [address] [place], [place] [id number] PCP - General 02/19/24 Ángela Millard APRN [address] [place] [address] Nurse Practitioner Neurosurgery 09/17/21 documented as of this encounter
--- OUTSIDE RECORDS SUMMARY | 2025-04-02 12:36 | XMS_ITS | Encounter Summary ---
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 documented in this encounter Plan of Treatment Not on file documented as of this encounter Visit Diagnoses Not on filedocumented in this encounter Care Teams Recovery Assistant Relationship Specialty Start Date End Date Delmer Fritz MD [address] [place] [address] PCP - General Family Medicine 08/07/24 documented as of this encounter
--- OUTSIDE RECORDS SUMMARY | 2025-04-02 12:36 | XMS_ITS | Encounter Summary ---
Author Organization [facility] Address [address] [place] [address] Care Team Providers Care Child Development Consultant Name Role Phone Delmer Fritz MD Primary Care Provider [phone] Encounter Details Date Type Department Care Team (Late st Contact Info) Description 02/10/2025 Telephone [facility] [address] [address] Emir Morales MD [address] [facility] [address] [facility] [address] [place] [address] Social History Tobacco Use Types Packs/Day Years [...] 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 Added to scan zoëe. Can not find [...] swelling, respiratory distress. blows up like a Zwolle blimp . Has had a cardiac cath previously years and years ago [facility]- said they gave him IV Benadryl before and after his procedure and kept overnight for monitoring. Says this plan worked well. Made Dr. Morales aware. Also faxed request to [facility] for cath and med records to confirm medicine regimen used at that time. documented in this encounter Plan of Treatment Not on file documented as of this encounter Visit Diagnoses Not on filedocumented in this encounter Care Teams Child Development Consultant Relationship Specialty Start Date End Date Delmer Fritz MD [address] [place] [address] PCP - General Family Medicine 08/07/24 documented as of this encounter
--- OUTSIDE RECORDS SUMMARY | 2025-04-02 12:36 | XMS_ITS | Encounter Summary ---
Author Organization [facility] Address [address] [place] [address] Care Team Providers Care Heating Equipment Installer Name Role Phone Delmer Fritz MD Primary Care Provider [phone] Antwan Esparza MD Primary Care Provider [phone] Ángela Millard HVAC SERVICE TECHNICIAN Unavailable [phone] Inna Serrano APRN Primary Care Provider [phone] Encounter Details Date Type Department Care Team (Late st Contact Info) Description 09/01/2020 Orders Only External Location [address] [place] [address] Provider, External Social History Tobacco Use Types [...] Description 04/08/2025 12:00 PM EST Office Visit [facility] Nephrology, Bone & Mineral Metabolism [address] [facility], [address] [place] [phone] David Workman MD [address] [place] [address] 05/19/2025 1:00 PM EST Office Visit [facility] at [facility] [address] [place] [phone] Leslie Suarez DO [address] [place] [address] [place] [address] 09/30/2025 10:10 AM EDT Appointment [facility] Radiology [address] [place] [address] 09/30/2025 11:30 AM EDT Office Visit [facility] Res[facility] [address] [place] [address] Aysha Crews MD [address] [place] [address] documented as of this encounter [...] on filedocumented in this encounter Care Teams Heating Equipment Installer Relationship Specialty Start Date End Date Delmer Fritz MD [address] [facility] [address] [place] [address] PCP - General 10/02/20 12/13/20 Atnwan Esparza MD [address] [place] [address] PCP - General 12/14/20 02/18/24 Inna Serrano APRN [address] [place] [address] PCP - General 02/19/24 Ángela Millard APRN [address] [place] [address] Nurse Practitioner Neurosurgery 09/17/21 documented as of this encounter
--- OUTSIDE RECORDS SUMMARY | 2025-04-02 12:36 | XMS_ITS | Encounter Summary ---
Author Organization [facility] Address [address] [place] [address] Care Team Providers Care Copyist Name Role Phone Antwan Esparza MD Primary Care Provider [phone] Ángela Millard BIG DATA ADMIN Unavailable [phone] Inna Serrano APRN Primary Care Provider + [phone] Encounter Details Date Type Department Care Team ([facility] Contact Info) Description 12/24/2020 Orders Only External Location [address] [place] [address] Provider, External Social History Tobacco Use Types [...] Upcoming Encounters Date Type Department Care Team ([facility] Contact Info) Description 04/08/2025 12:00 PM EST Office Visit [facility] Nephrology, Bone & Mineral Metabolism [address] [facility] [place] [address] David Workman MD [address] [place] [address] 05/19/2025 1:00 PM EST Office Visit [facility] [address] [place] [address] Adonis Prince LeslieDO [address] [place] [address] 09/30/2025 10:10 AM EDT Appointment [facility] Radiology [address] [place] [address] 09/30/2025 11:30 AM EDT Office Visit [facility] Head[facility] Neck [facility] Respiratory [address] [place] [address] Aysha Crews MD [address] [place] [address] documented as of this encounter [...] documented as of this encounter Care Teams Copyist Relationship Specialty Start Date End Date Antwan Esparza MD [address] [place] [address] PCP - General 12/14/20 02/18/24 Inna Serrano APRN [address] [place] [address] PCP - General 02/19/24 Ángela Millard APRN [address] [place] [address] Nurse Practitioner Neurosurgery 09/17/21 documented as of this encounter
--- OUTSIDE RECORDS SUMMARY | 2025-04-02 12:36 | XMS_ITS | Clinical Summary ---
Author Organization [facility] Address [address] [place] [address] Phone Care Team Providers Care Delivery Agent Name Role Phone Unavailable Primary Care Provider [...] patient's age to complete this topic Insurance [facility] [id number] [facility]
--- OUTSIDE RECORDS SUMMARY | 2025-04-02 12:36 | XMS_ITS | Encounter Summary ---
Author Organization [facility] Address [address] [place] [address] Care Team Providers Care Pipe Stem Repairer Name Role Phone Ángela Millard INTERACTIVE MULTIMEDIA DESIGNER Unavailable [phone] Inna Serrano INTERACTIVE MULTIMEDIA DESIGNER Primary Care Provider [phone] Reason for Visit * Reason Onset Date Comments HCN Clinical Concern/Question 03/17/2025 Encounter Details Date Type Department Care Team ([facility] st Contact Info) Description 03/17/2025 Telephone [facility] Mineral Met[facility] [address] [facility], [address] [place] [address] David Workman MD [address] [place] [address] HCN Clinical Concern/Question Social History [...] Telephone Encounter - Mandie Olsen, PharmD - 03/26/2025 11:41 AM EST Returned call to patient. Discussed prasugrel and ASA 81mg with no renal dose adjustments. Advised him to continue taking as recommended by cardiology after recent stent placement. Patient will follow up in clinic as scheduled. Mandie Olsen PharmD, BCACP Clinical Pharmacist Nephrology, [facility] & Mineral Metabolism Clinic [address] [place] [address] * Telephone Encounter - Nanette Sandra - 03/26/2025 8:43 AM EST Status Update Call #1 1st call regarding the status of the initial request. Best contact number: [phone] (home) Optimal time of day to reach caller: ANYTIME Additional comments/information from caller: Pt called to follow up on his original request from 03/17/25 to speak to the provider or pharmacist about whether it would be safe for his kidneys to takethe Prasugrel that was prescribed by the heart surgeon. Pt is also taking 1 baby aspirin per day. Note: Please do not reply to this message. Follow-up communication and further actions as a result of this message need to be communicated with the patient directly, if the patient is not active onMyChart. If the patient is active on MyChart, they will receive notification of the communication/outcome via MyChart. * Telephone Encounter - EliasClaudia - 03/25/2025 3:23 PM EST Status Update Call #2 2nd call regarding the status of the initial request. Best contact number: [phone] (mobile) Optimal time of day to reach caller: ANYTIME Additional comments/information from caller: Pt is returning call from the clinic. Note: Please do not reply to this message. Follow-up communication and further actions as a result of this message need to be communicated with the patient directly, if the patient is not active onMyChart. If the patient is active on MyChart, they will receive notification of the communication/outcome via Ammado. * Telephone Encounter - Neyda Guzman - 03/25/2025 9:28 AM EST Status Update Call #1 1st call regarding the status of the initial request. Best contact number: [phone] (mobile) Optimal time of day to reach caller: ANYTIME Additional comments/information from caller: Asking to speak w/the PharmD about medications Note: Please do not reply to this message. Follow-up communication and further actions as a result of this message need to be communicated with the patient directly, if the patient is not active onMyChart. If the patient is active on MyChart, they will receive notification of the communication/outcome via Ammado. * Telephone Encounter - Mandie Olsen PharmD - 03/19/2025 11:49 AM EDT Spoke with patient over the phone who reports he had a doppler completed of neck, legs and feet. Hereports doppler showed 50% blockage in neck and that he will be referred to vascular surgery by cardiology due to doppler also showing blood pools in the feet. Thanked patient for update and advised would make Dr. Workman aware. Mandie Olsen PharmD, BCACP Clinical Pharmacist Nephrology, Bone & Mineral Metabolism Clinic [facility] [place] [address] * Telephone Encounter - Celina Arce - 03/18/2025 12:50 PM EDT Requested doppler us results and recent labs * Telephone Encounter - Staci Chavez - 03/17/2025 3:24 PM EDT Clinical Concern/Question Reason for Call: Patient states he had a doppler US on legs, feet and neck at [facility]. Asking for Dr Workman to request images and records and for him to call patient to go over results. Best contact number: [phone] (mobile) Optimal time of day to reach [...] communication/outcome via MyChart. * Telephone Encounter - Staci Chavez - 03/17/2025 10:29 AM EDT Clinical Concern/Question Reason for Call: Patient calling to speak with pharmacist in nephrology. Best contact number: [phone] (mobile) Optimal time of day to reach [...] 04/08/2025 12:00 PM EST Office Visit [facility] [place] Nephrology, Bone & Mineral Metabolism [address] [facility], [address] [place] [address] David Workman MD [address] [place] [address] 05/19/2025 1:00 PM EST Office Visit [facility] at [facility] [address] [facility] [place] [address] Leslie Suarez, [address] [place] [address] 09/30/2025 10:10 AM EDT Appointment [facility] [address] [place] [address] 09/30/2025 11:30 AM EDT Office Visit [facility] Res[facility] [address] , 2nd [place] [address] Aysha Crews MD [address] [place] [address] documented as of this encounter Visit Diagnoses Not on filedocumented in this encounter Additional Health Concerns Assessment Noted Time A fall risk assessment has been complete d for the patient 02/20/2025 2:45 PM EDT A Body Mass Index follow-up plan has been documented for the patient 02/20/2025 3:10 PM EDT documented as of this encounter Care Teams Pipe Stem Repairer Relationship Specialty Start Date End Date Inna Serrano APRN [address] [place] [address] PCP - General 02/19/24 Ángela Millard APRN [address] [place] [address] Nurse Practitioner Neurosurgery 09/17/21 documented as of this encounter
--- OUTSIDE RECORDS SUMMARY | 2025-04-02 12:36 | XMS_ITS | Encounter Summary ---
Author Organization [facility] Address [address] [place] [address] Care Team Providers Care Server Systems Administrator Name Role Phone Antwan Esparza MD Primary Care Provider [phone] Ángela Millard MANAGER FLIGHT Unavailable [phone] Inna Serrano APRN Primary Care Provider [phone] Reason for Referral * Consultation (Routine) - Closed Specialty Diagnoses / Procedures Referred By Cortez johnson Referred To Contact Endocrinology Diagnoses Thyroid nodule Jose Mccracken MD [address] [facility] [address] [place] [address] Phone: tel: fax: [facility] Endocrinology [address] [place] [address] Phone: tel: fax: Referral ID Status Reason Start Date Expiration Date V isits Requested Visits Authorized [id number] Closed Specialty Services Required 08/01/2022 01/31/2024 1 1 Encounter Details Date Type Department Care Team (Late st Contact Info) Description 08/01/2022 Community [facility] [address] [place] [address] Jose Mccracken MD [address] [facility] [place] [address] Thyroid nodule (Primary Dx) Social [...] [facility], [address] [place] [address] David Workman MD [address] [place] [address] 05/19/2025 1:00 PM EST Office Visit [facility] [address] [place] [address] Leslie Suarez DO [address] [place] [address] 09/30/2025 10:10 AM EDT Appointment [facility] Radiology [address] [place] [address] 09/30/2025 11:30 AM EDT Office Visit [facility] Res[facility] [address] [facility], 2nd [place] [address] Aysha Crews MD [address] [facility] [address] [place] [address] Scheduled Referrals Name Type Priority Associated Diagnoses [...] documented as of this encounter Care Teams Server Systems Administrator Relationship Specialty Start Date End Date Antwan Esparza MD [address] [place] [address] PCP - General 12/14/20 02/18/24 Inna Serrano, MANAGER FLIGHT [address] [place] [address] PCP - General 02/19/24 Ángela Millard, MANAGER FLIGHT [address] [place] [address] Nurse Practitioner Neurosurgery 09/17/21 documented as of this encounter
--- OUTSIDE RECORDS SUMMARY | 2025-04-02 12:36 | XMS_ITS | Patient Health Record ---
Author Organization [facility] Address [address] [place] [address] Care Team Providers Care Distribution Designer Name Role Phone Chayo Morrison Primary Care [...] Problem Long-term current use of drug therapy (560693570) MCC (current) drug therapy WRM (Z79.899) Active confirmed Problem Cervical spondylosis without myelopathy (914768377) Spondylosis without myelopathy or radiculopathy, cervical region (M47.812) Active confirmed Problem Cervical disc disorder (717109690) Cervical disc disorder, unspecified, unspecified cervical region (M50.90) Active confirmed Problem Dysthymia (69094756) Dysthymia (F34.1) Active confirmed Problem Opioid abuse (6358040) Opioid use, 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) Active confirmed Encounters Encounter Location Date Provider Diagnosis [facility] [address] [place] [address] 04/27/2024 Provider Migration Plan Of Treatment Pending Test Test Name Order Date Urine Drug Testing 11/29/2021 Future Test Test Name Order Date PPM - Personalized Pain Management (9921 3) 11/29/2021 Insurance Providers Payer Name Payer Address Payer Phone Subscriber Number Group Number Insured Name Patient Relationship to Insured Coverage Start Date Coverage End Date [employer] [place] - [place] [address] [address] [place] [id number] Luca Kauffman Self - patient is the insured 2 Medical (General) History Medical History History ICD Code COPD Arthritis Heartburn Hypertension Thyroid disease Surgical History Surgery Date(Month/Year) Shoulder Elbows 3 times Throat surgery Chest Lung Stomach Knees Hospitalization History Reason Date(Month/Year) Surgeries
--- OUTSIDE RECORDS SUMMARY | 2025-04-02 12:37 | XMS_ITS | Encounter Summary ---
Author Organization [facility] Address [address] [place] [address] Care Team Providers Care Institute Scientist Name Role Phone Ángela Millard Ev PHOTOENGRAVING PROOFER Unavailable [phone] Inna Serrano APRN Primary Care Provider [phone] Reason for Visit * Reason Onset Date Comments HCN - Patient Message 02/03/2025 Encounter Details Date Type Department Care Team ([facility] st Contact Info) Description 02/03/2025 Telephone [facility] Nephrology, Bone [facility] Mineral Metabolism [address] [facility], [address] [place] [address] David Workman MD [address] [place] [address] HCN - Patient Message Social History [...] to be having a heart surgery at [facility]. Best contact number: [phone] (mobile) Optimal time of day to reach [...] of the initial request. Best contact number: [phone] (home) Optimal time of day to reach caller: ANYTIME Additional comments/information from caller: Pt called to let Dr Workman know that [facility] is sending the imaging as well. [...] had a nuclear heart scan done at [facility] last Monday and would like to know if Dr. Workman would like a copy of those test results. Best contact number: [phone] (mobile) Optimal time of day to reach [...] Description 04/08/2025 12:00 PM EST Office Visit [facility] [employer] [place] Nephrology, Bone & Mineral Metabolism [address] [facility], [address] [place] [address] David Workman MD [address] [place] [address] 05/19/2025 1:00 PM EST Office Visit [facility] at [facility] [address] [place] [address] Leslie Suarez DO [address] [facility] [address] [place] [address] 09/30/2025 10:10 AM EDT Appointment [facility] Radiology [address] [place] [address] 09/30/2025 11:30 AM EDT Office Visit [facility] Res[facility] [address] [facility], 2nd [place] [address] Asyha Crews MD [address] [facility] [address] [place] [address] documented as of this encounter Visit Diagnoses Not on filedocumented in this encounter Additional Health Concerns Assessment Noted Time A fall risk assessment has been complete d for the patient 01/08/2025 1:58 PM EDT A Body Mass Index follow-up plan has been documented for the patient 01/08/2025 3:33 PM EDT documented as of this encounter Care Teams Institute Scientist Relationship Specialty Start Date End Date Inna Serrano APRN [address] [place] [address] PCP - General 02/19/24 Ángela Millard APRN [address] [place] [address] Nurse Practitioner Neurosurgery 09/17/21 documented as of this encounter
--- OUTSIDE RECORDS SUMMARY | 2025-04-02 12:37 | XMS_ITS | Encounter Summary ---
Author Organization [facility] Address [address] [place] [address] Care Team Providers Care Petroleum Engineering Teacher Name Role Phone Ángela Millard SERVICE REPRESENTATIVE Unavailable [phone] Inna Serrano APRN Primary Care Provider [phone] Reason for Visit * Reason Onset Date Comments HCN Status Update Call #2 01/08/2025 Encounter Details Date Type Department Care Team (Late st Contact Info) Description 01/08/2025 Telephone Physical Medicine & Rehabilitation Clinic at [facility] [address] [facility] [place] [address] Leslie Suarez DO [address] [facility] [address] [place] [address] HCN Status Update Call #2 [...] of the initial request. Best contact number: [phone] (mobile) Optimal time of day to reach [...] will receive notification of the communication/outcome via CheckInOn.Met. * Telephone Encounter - Malena Edmond - 01/09/2025 9:07 AM EDT Status Update Call #1 1st call regarding the status of the initial request. Best contact number: [phone] (mobile) Optimal time of day to reach [...] that the provider requested. Best contact number: [phone] (mobile) Optimal time of day to reach [...] Nephrology, Bone & Mineral Metabolism [address] [facility], [address] [place] [address] David Workman MD [address] [place] [address] 05/19/2025 1:00 PM EST Office Visit [facility] Rehabilitation Clinic at [facility] [address] [place] [address] Leslie Suarez DO [address] [place] [address] 09/30/2025 10:10 AM EDT Appointment [facility] Radiology [address] [place] [address] 09/30/2025 11:30 AM EDT Office Visit [facility] Res[facility] [address] [facility], 2nd [place] [address] Aysha Crews MD [address] [place] [address] documented as of this encounter Visit Diagnoses Not on filedocumented in this encounter Additional Health Concerns Assessment Noted Time A fall risk assessment has been complete d for the patient 01/08/2025 1:58 PM EDT A Body Mass Index follow-up plan has been documented for the patient 01/08/2025 3:33 PM EDT documented as of this encounter Care Teams Petroleum Engineering Teacher Relationship Specialty Start Date End Date Inna Serrano APRN [address] [place], [place] [id number] PCP - General 02/19/24 Ángela Millard APRN [address] [place] [address] Nurse Practitioner Neurosurgery 09/17/21 documented as of this encounter
--- OUTSIDE RECORDS SUMMARY | 2025-04-02 12:37 | XMS_ITS | Encounter Summary ---
Author Organization [facility] Address [address] [place] [address] Care Team Providers Care Senior Electrical Estimator Name Role Phone Ángela Millard STAFF COUNSELOR Unavailable [phone] Inna Serrano APRN Primary Care Provider [phone] Reason for Visit * Reason Onset Date Comments HCN Clinical Concern/Question 01/22/2025 Encounter Details Date Type Department Care Team ([facility] st Contact Info) Description 01/22/2025 Telephone [facility] Nephrology, Bone & Mineral Metabolism [address] [facility], [address] [place] [address] David Workman MD [address] [place] [address] HCN Clinical Concern/Question Social History [...] Questionnaire-2 Score 0 02/20/2025 2:45 PM EDT Abren Gonzales LPN * Calculated C-SSRS Risk Score [...] he had a renal ultrasound done at [facility] on 01/21 and wants to make sure Dr. Workman gets the results. Best contact number: [phone] (home) Optimal time of day to reach caller: ANYTIME Additional comments/information from caller: None Note: Please do not reply to this message. Follow-up communication and further actions as a result of this message need to be communicated with the patient directly, if the patient is not active onMyChart. If the patient is active on MyChart, they will receive notification of the communication/outcome via Findery. documented in this encounter Plan of Treatment Upcoming Encounters Date Type Department Care Team (Late st Contact Info) Description 04/08/2025 12:00 PM EST Office Visit [facility] Nephrology, Bone & Mineral Metabolism [address] [facility], [address] [place] [address] David Workman MD [address] [place] [address] 05/19/2025 1:00 PM EST Office Visit [facility] [address] [place] [address] Leslie Suarez DO [address] [facility] [address] [place] [address] 09/30/2025 10:10 AM EDT Appointment [facility] Radiology [address] [place] [address] 09/30/2025 11:30 AM EDT Office Visit [facility] Res[facility] [address] 2[address] [place] [address] Aysha Crews MD [address] [facility] [address] [place] [address] documented as of this encounter Visit Diagnoses Not on filedocumented in this encounter Additional Health Concerns Assessment Noted Time A fall risk assessment has been complete d for the patient 01/08/2025 1:58 PM EDT A Body Mass Index follow-up plan has been documented for the patient 01/08/2025 3:33 PM EDT documented as of this encounter Care Teams Senior Electrical Estimator Relationship Specialty Start Date End Date Inna Serrano APRN [address] [place] [address] PCP - General 02/19/24 Ángela Millard APRN [address] [place] [address] Nurse Practitioner Neurosurgery 09/17/21 documented as of this encounter
--- OUTSIDE RECORDS SUMMARY | 2025-04-02 12:37 | XMS_ITS | Encounter Summary ---
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 Instruction for patient to contact [facility] Cardiac Rehab Department for additional program information and to forward referral to closest Cardiac Rehab program. documented in this encounter Plan of Treatment Not on file documented as of this encounter Visit Diagnoses Not on filedocumented in this encounter Care Teams Laborer Pipelines Relationship Specialty Start Date End Date Delmer Fritz MD [address] [place] [address] PCP - General Family Medicine 08/07/24 documented as of this encounter
--- OUTSIDE RECORDS SUMMARY | 2025-04-02 12:37 | XMS_ITS | Encounter Summary ---
Author Organization [facility] Address [address] [place] [address] Care Team Providers Care Civil Service Clerk Name Role Phone Antwan Esparza MD Primary Care Provider [phone] Ángela Millard WINE BOTTLE INSPECTOR Unavailable [phone] Inna Serrano APRN Primary Care Provider [phone] Encounter Details Date Type Department Care Team (Late Contact Info) Description 10/06/2023 Orders Only External Location [address] [place] [address] Provider, External Social History Tobacco Use Types [...] [address] [facility], [address] [place] [address] David Workman MD [address] [place] [address] 05/19/2025 1:00 PM EST Office Visit [facility] [address] [place] [address] Leslie Suarez, [address] [place] [address] 09/30/2025 10:10 AM EDT Appointment [facility] [address] [place] [address] 09/30/2025 11:30 AM EDT Office Visit [facility] [address], 2nd [place] [address] Aysha Crews MD [address] [facility] [address] [place] [address] documented as of this [...] as of this encounter Care Teams Civil Service Clerk Relationship Specialty Start Date End Date Antwan Esparza MD [address] [place] [address] PCP - General 12/14/20 02/18/24 Inna Serrano APRN [address] [place] [address] PCP - General 02/19/24 Ángela Millard APRN [address] [facility] [place] [address] Nurse Practitioner Neurosurgery 09/17/21 documented as of this encounter
--- OUTSIDE RECORDS SUMMARY | 2025-04-02 12:37 | XMS_ITS | Encounter Summary ---
Author Organization [facility] Address [address] [place] [address] Care Team Providers Care Courtroom Deputy Or Calendar Clerk Name Role Phone Ángela Millard PRESS READER Unavailable Inna Serrano APRN Primary Care Provider [phone] Reason for Visit * Reason Onset Date Comments HCN - Patient Message 02/03/2025 Encounter Details Date Type Department Care Team (Late st Contact Info) Description 02/03/2025 Telephone Physical [facility] & Rehabilitation [facility] at [facility] [address] [facility] [place] [address] Leslie Suarez DO [address] [facility] [address] [place] [address] HCN - Patient Message Social [...] failure. He said his records are at [facility]. Patient wants Dr. Morrison to know. Best contact number: [phone] (mobile) Optimal time of day to reach [...] 12:00 PM EST Office Visit [facility] Nephrology, Bone & Mineral Metabolism [address] [facility], [address] [place] [address] David Workman MD [address] [place] [address] 05/19/2025 1:00 PM EST Office Visit [facility] [address] [place] [address] Leslie Suarez DO [address] [place] [address] 09/30/2025 10:10 AM EDT Appointment [facility] Radiology [address] [place] [address] 09/30/2025 11:30 AM EDT Office Visit [facility] Head, Neck & Respiratory [address] [facility], 2nd [place] [address] Aysha Crews MD [address] [facility] [address] [place] [address] documented as of this encounter Visit Diagnoses Not on filedocumented in this encounter Additional Health Concerns Assessment Noted Time A fall risk assessment has been complete d for the patient 01/08/2025 1:58 PM EDT A Body Mass Index follow-up plan has been documented for the patient 01/08/2025 3:33 PM EDT documented as of this encounter Care Teams Courtroom Deputy Or Calendar Clerk Relationship Specialty Start Date End Date Inna Serrano APRN [address] [place] [address] PCP - General 02/19/24 Ángela Millard APRN [address] [place] [address] Nurse Practitioner Neurosurgery 09/17/21 documented as of this encounter
--- OUTSIDE RECORDS SUMMARY | 2025-04-02 12:37 | XMS_ITS | Encounter Summary ---
Author Organization Healthcare Address [address] [place] [address] Care Team Providers Care Pipe Fitter Marine Name Role Phone Ángela Millard DOUGH MIXER OPERATOR Unavailable [phone] Inna Serrano APRN Primary Care Provider [phone] Reason for Visit * Reason Onset Date Comments HCN Status Update Call #1 02/05/2025 Encounter Details Date Type Department Care Team (Late st Contact Info) Description 02/05/2025 Telephone Physical Medicine & Rehabilitation Clinic at [facility] [address] [facility] [place] [address] Leslie Suarez DO [address] [facility] [address] [place] [address] HCN Status Update Call #1 [...] of the initial request. Best contact number: [phone] (mobile) Optimal time of day to reach [...] will receive notification of the communication/outcome via Radionomy. * Telephone Encounter - Germaine Hart - 02/05/2025 2:33 PM EDT Clinical Concern/Question Reason for Call: [facility] patient needing a return call to reschedule upcoming appt with [facility] Best contact number: [phone] (mobile) Optimal time of day to reach [...] receive notification of the communication/outcome via [employer]. documented in this encounter Plan of Treatment Upcoming Encounters Date Type Department Care Team (Late st Contact Info) Description 04/08/2025 12:00 PM EST Office Visit [facility] Nephrology, Bone & Mineral Metabolism [address] [facility], [address] [place] [address] David Workman MD [address] [place] [address] 05/19/2025 1:00 PM EST Office Visit [facility] at [facility] [address] [place] [address] Leslie Suarez DO [address] [place] [address] 09/30/2025 10:10 AM EDT Appointment [facility] G Radiology [address] [place] [address] 09/30/2025 11:30 AM EDT Office Visit [facility] Head, Neck & Respiratory [address] [facility], 2nd [place] [address] Aysha Crews MD [address] [place] [address] documented as of this encounter Visit Diagnoses Not on filedocumented in this encounter Additional Health Concerns Assessment Noted Time A fall risk assessment has been complete d for the patient 01/08/2025 1:58 PM EDT A Body Mass Index follow-up plan has been documented for the patient 01/08/2025 3:33 PM EDT documented as of this encounter Care Teams Pipe Fitter Marine Relationship Specialty Start Date End Date Inna Serrano APRN [address] [place], [place] [id number] PCP - General 02/19/24 Ángela Millard APRN [address] [place] [address] Nurse Practitioner Neurosurgery 09/17/21 documented as of this encounter
--- OUTSIDE RECORDS SUMMARY | 2025-04-02 12:37 | XMS_ITS | Encounter Summary ---
Author Organization Healthcare Address [address] [place] [id number] Care Team Providers Care Mitigation Supervisor Name Role Phone Ángela Millard MANPOWER DEVELOPMENT MANAGER Unavailable [phone] Inna Serrano MANPOWER DEVELOPMENT MANAGER Primary Care Provider [phone] Encounter Details Date Type Department Care Team (Late st Contact Info) Description 02/03/2025 Telephone [facility] Head[facility] Neck & Respiratory [address], 2nd [place] [address] Aysha Crews MD [address] [place] [address] Social History Tobacco Use Types [...] 9:50 AM EDT Per pt call to [facility], pt had imaging done at [facility] and sent thhe reports for those images but not the images themselves. Pt calling to update us that they are now working on sending the actual images and to be on the lookout for those. [phone] * Telephone Encounter - Sheryl Keyes - 02/03/2025 1:27 PM EDT Patient recently had a stress test and a scan of his heart at [facility] in [place], [place]. Pt wanted to make Dr. Crews [...] PM EST Office Visit Professional [facility] Nephrology, Bone & Mineral Metabolism [address] [facility], [address] [place] [address] David Workman MD [address] [place] [address] 05/19/2025 1:00 PM EST Office Visit Physical [facility] & Rehabilitation [facility] at [facility] [address] [place] [address] Leslie Suarez DO [address] [place] [address] 09/30/2025 10:10 AM EDT Appointment P[facility] G Radiology [address] [place] [address] 09/30/2025 11:30 AM EDT Office Visit [facility] Head[facility] Neck & Respiratory [address], 2nd [place] [address] Aysha Crews MD [address] [place] [address] documented as of this encounter Visit Diagnoses Not on filedocumented in this encounter Additional Health Concerns Assessment Noted Time A fall risk assessment has been complete d for the patient 01/08/2025 1:58 PM EDT A Body Mass Index follow-up plan has been documented for the patient 01/08/2025 3:33 PM EDT documented as of this encounter Care Teams Mitigation Supervisor Relationship Specialty Start Date End Date Inna Serrano APRN [address] [place] [address] PCP - General 02/19/24 Ángela Millard APRN [address] [place] [address] Nurse Practitioner Neurosurgery 09/17/21 documented as of this encounter
--- OUTSIDE RECORDS SUMMARY | 2025-04-02 12:37 | XMS_ITS | Encounter Summary ---
Author Organization Healthcare Address [address] [place] [address] Care Team Providers Care Wort Extractor Name Role Phone Antwan Esparza MD Primary Care Provider [phone] Ángela Millard CLINICAL PSYCHOLOGIST LICENSED Unavailable [phone] Inna Serrano APRN Primary Care Provider + [phone] Encounter Details Date Type Department Care Team (Late Contact Info) Description 10/06/2023 Orders Only External Location [address] [place] [address] Provider, External Social History Tobacco Use Types [...] [address] [facility], [address] [place] [address] David Workman MD [address] [place] [address] 05/19/2025 1:00 PM EST Office Visit [facility] [address] [place] [address] Leslie Suarez, [address] [place] [address] 09/30/2025 10:10 AM EDT Appointment P[facility] G Radiology [address] [place] [address] 09/30/2025 11:30 AM EDT Office Visit [facility] Head[facility] Neck & Respiratory [address], 2nd [place] [address] Aysha Crews MD [address] [place] [address] documented as of this encounter [...] documented as of this encounter Care Teams Wort Extractor Relationship Specialty Start Date End Date Antwan Esparza MD [address] [place] [address] PCP - General 12/14/20 02/18/24 Inna Serrano APRN [address] [place] [address] PCP - General 02/19/24 Ángela Millard APRN [address] [facility] [place] [address] Nurse Practitioner Neurosurgery 09/17/21 documented as of this encounter
--- OUTSIDE RECORDS SUMMARY | 2025-04-02 12:37 | XMS_ITS | Encounter Summary ---
Author Organization [facility] Address [address] [place] [address] Care Team Providers Care Hydroelectric Plant Maintainer Name Role Phone Ángela Millard SUPERVISOR WINTER Unavailable Inna Serrano SUPERVISOR WINTER Primary Care Provider [phone] Encounter Details Date Type Department Care Team ([facility] st Contact Info) Description 02/11/2025 Telephone [facility] Neph[facility], Bone & Mineral Metabolism [address] [facility], [address] [place] [address] Mandie Olsen, PharmD [address] [place] [address] Social History Tobacco Use Types [...] follow up on BP. Patient reports his ceramic coater machine told him to stop monitoring BP until he has heart cath. He reports he is not scheduled yet at this time, but they are working to get him scheduled. Will continue to follow up. Mandie Olsen PharmD, BCACP Clinical Pharmacist Nephrology, [facility] & Mineral Metabolism Clinic [address] [place] [address] documented in this encounter Plan of Treatment Upcoming Encounters Date Type Department Care Team (Late st Contact Info) Description 04/08/2025 12:00 PM EST Office Visit [facility] Nephrology, Bone & Mineral Metabolism [address] [facility], [address] [place] [address] David Workman MD [address] [place] [address] 05/19/2025 1:00 PM EST Office Visit Physical Medicine & Rehabilitation Clinic at [facility] [address] [place] [address] Leslie Suarez DO [address] [facility] [address] [place] [address] 09/30/2025 10:10 AM EDT Appointment [facility] G Radiology [address] [place] [address] 09/30/2025 11:30 AM EDT Office Visit [facility] Head, Neck & Respiratory [address] [facility], 2nd [place] [address] Aysha Crews MD [address] [facility] [address] [place] [address] documented as of this encounter Visit Diagnoses Not on filedocumented in this encounter Additional Health Concerns Assessment Noted Time A fall risk assessment has been complete d for the patient 01/08/2025 1:58 PM EDT A Body Mass Index follow-up plan has been documented for the patient 01/08/2025 3:33 PM EDT documented as of this encounter Care Teams Hydroelectric Plant Maintainer Relationship Specialty Start Date End Date Inna Serrano APRN [address] [place] [address] PCP - General 02/19/24 Ángela Millard APRN [address] [place] [address] Nurse Practitioner Neurosurgery 09/17/21 documented as of this encounter
--- OUTSIDE RECORDS SUMMARY | 2025-04-02 12:37 | XMS_ITS | Encounter Summary ---
Author Organization [facility] Address [address] [place] [address] Care Team Providers Care Emergency Room Specialist Name Role Phone Ángela Millard SPORTS MANAGEMENT INTERN Unavailable Inna Serrano APRN Primary Care Provider [phone] Encounter Details Date Type Department Care Team (Late st Contact Info) Description 01/27/2025 Telephone [facility] Nephrology, Bone & Mineral Metabolism [address] [facility], [address] [place] [address] David Workman MD [address] [place] [address] Social History Tobacco Use Types [...] EDT Clinical Concern/Question Reason for Call: Pt's human resources director took him off Carvedilol and prescribed Bumetanide instead. Pt said that his human resources director is going to do labs in 1 week and evaluate whether the fluid retention has decreased. Pt said he will be admitted to the hospital if he has not improved. Best contact number: [phone] (home) Optimal time of day to reach [...] will receive notification of the communication/outcome via [employer]. documented in this encounter Plan of Treatment Upcoming Encounters Date Type Department Care Team (Late st Contact Info) Description 04/08/2025 12:00 PM EST Office Visit [facility] Nephrology, Bone & Mineral Metabolism [address] [facility], [address] [place] [address] David Workman MD [address] [place] [address] 05/19/2025 1:00 PM EST Office Visit [facility] at [facility] [address] [place] [address] Leslie Suarez DO [address] [facility] [address] [place] [address] 09/30/2025 10:10 AM EDT Appointment [facility] G Radiology [address] [place] [address] 09/30/2025 11:30 AM EDT Office Visit [facility] Head, Neck & Respiratory [address] [facility], 2nd [place] [address] Aysha Crews MD [address] [facility] [address] [place] [address] documented as of this encounter Visit Diagnoses Not on filedocumented in this encounter Additional Health Concerns Assessment Noted Time A fall risk assessment has been complete d for the patient 01/08/2025 1:58 PM EDT A Body Mass Index follow-up plan has been documented for the patient 01/08/2025 3:33 PM EDT documented as of this encounter Care Teams Emergency Room Specialist Relationship Specialty Start Date End Date Inna Serrano APRN [address] [place] [address] PCP - General 02/19/24 Ángela Millard APRN [address] [address] Nurse Practitioner Neurosurgery 09/17/21 documented as of this encounter
--- OUTSIDE RECORDS SUMMARY | 2025-04-02 12:37 | XMS_ITS | Encounter Summary ---
Author Organization [facility] Address [address] [place] [address] Care Team Providers Care Electronic Warfare Officer Name Role Phone Ángela Millard EMPLOYMENT CONSULTANT Unavailable [phone] Inna Serrano APRN Primary Care Provider [phone] Reason for Visit * Reason Onset Date Comments Med Refill 02/10/2025 Encounter Details Date Type Department Care Team (Late st Contact Info) Description 02/10/2025 Refill Physical Medicine & Rehabilitation Clinic at [facility] [address] [facility] [place] [address] Dee Dee Jenkins MD [address] [facility] [address] [place] [address] Social History Tobacco Use Types [...] Metabolism [address] [facility], [address] [place] [address] David Workman MD [address] [place] [address] 05/19/2025 1:00 PM EST Office Visit [facility] at [facility] [address] [place] [address] Leslie Suarez DO [address] [place] [address] 09/30/2025 10:10 AM EDT Appointment [facility] G Radiology [address] [place] [address] 09/30/2025 11:30 AM EDT Office Visit [facility] Head, Neck & Respiratory [address] [facility], 2nd [place] [address] Aysha Crews MD [address] [place] [address] documented as of this encounter Visit Diagnoses Not on filedocumented in this encounter Additional Health Concerns Assessment Noted Time A fall risk assessment has been complete d for the patient 01/08/2025 1:58 PM EDT A Body Mass Index follow-up plan has been documented for the patient 01/08/2025 3:33 PM EDT documented as of this encounter Care Teams Electronic Warfare Officer Relationship Specialty Start Date End Date Inna Serrano APRN [address] [place], [place] [address] PCP - General 02/19/24 Ángela Millard APRN [address] [place] [address] Nurse Practitioner Neurosurgery 09/17/21 documented as of this encounter
--- OUTSIDE RECORDS SUMMARY | 2025-04-02 12:37 | XMS_ITS | Encounter Summary ---
Author Organization Healthcare Address [address] [place] [address] Care Team Providers Care Sensitometrist Name Role Phone Antwan Esparza MD Primary Care Provider + [phone] Ángela Millard GEEK SQUAD MANAGER Unavailable [phone] Inna Serrano APRN Primary Care Provider [phone] Encounter Details Date Type Department Care Team (Late st Contact Info) Description 12/20/2023 Orders Only External Location [address] [place] [address] Provider, External Social History Tobacco Use Types [...] Upcoming Encounters Date Type Department Care Team ([facility] st Contact Info) Description 04/08/2025 12:00 PM EST Office Visit [facility] Nephrology, Bone & Mineral Metabolism [address] [facility], [address] [place] [address] David Workman MD [address] [place] [address] 05/19/2025 1:00 PM EST Office Visit Physical Medicine [facility] Rehabilitation Clinic at [facility] [address] [place] [place] [address] Leslie Suarez DO [address] [place] [address] 09/30/2025 10:10 AM EDT Appointment [facility] G Radiology [address] [place] [address] 09/30/2025 11:30 AM EDT Office Visit [facility] Head, Neck & Respiratory [address] [facility], 2nd [place] [address] Aysha Crews MD [address] [facility] [address] [place] [address] documented as of this encounter [...] documented as of this encounter Care Teams Sensitometrist Relationship Specialty Start Date End Date Antwan Esparza MD [address] [place] [address] PCP - General 12/14/20 02/18/24 Inna Serrano APRN [address] [place] [address] PCP - General 02/19/24 Ángela Millard APRN [address] [place] [address] Nurse Practitioner Neurosurgery 09/17/21 documented as of this encounter
--- OUTSIDE RECORDS SUMMARY | 2025-04-02 12:38 | XMS_ITS | Encounter Summary ---
Author Organization Healthcare Address [address] [place] [address] Care Team Providers Care Transliterator Name Role Phone Delmer Fritz MD Primary Care Provider [phone] Antwan Esparza MD Primary Care Provider + [phone] Ángela Millard ORACLE ERP DEVELOPER Unavailable [phone] Inna Serrano APRN Primary Care Provider + [phone] Encounter Details Date Type Department Care Team (Late st Contact Info) Description 05/13/2020 Orders Only External Location [address] [place] [address] Provider, External Social History Tobacco Use Types [...] Description 04/08/2025 12:00 PM EST Office Visit [facility] [employer] [place] Nephrology, Bone & Mineral Metabolism [address] [facility], [address] [place] [address] David Workman MD [address] [place] [address] 05/19/2025 1:00 PM EST Office Visit [facility] Rehabilitation [facility] at [facility] [address] [place] [address] Leslie Suarez DO [address] [place] [address] 09/30/2025 10:10 AM EDT Appointment [facility] Radiology [address] [place] [address] 09/30/2025 11:30 AM EDT Office Visit [facility] Head[facility] Neck & Respiratory [address], 2nd [place] [address] Aysha Crews MD [address] [facility] [address] [place] [address] documented as of this encounter [...] on filedocumented in this encounter Care Teams Transliterator Relationship Specialty Start Date End Date Delmer Fritz MD [address] [facility] [address] [place] [address] PCP - General 10/02/20 12/13/20 Antwan Esparza MD [address] [place] [address] PCP - General 12/14/20 02/18/24 Inna Serrano APRN [facility] [place] [address] PCP - General 02/19/24 Ángela Millard APRN [address] [place] [address] Nurse Practitioner Neurosurgery 09/17/21 documented as of this encounter
--- OUTSIDE RECORDS SUMMARY | 2025-04-02 12:38 | XMS_ITS | Encounter Summary ---
Author Organization Healthcare Address [address] [place] [address] Care Team Providers Care Rail Car Loader Name Role Phone Antwan Esparza MD Primary Care Provider + [phone] Ángela Millard BAGGAGEMASTER Unavailable [phone] Inna Serrano APRN Primary Care Provider + [phone] Encounter Details Date Type Department Care Team (Late Contact Info) Description 03/08/2021 Orders Only External Location [address] [place] [address] Provider, External Social History Tobacco Use Types [...] Bone & Mineral Metabolism [address] [facility], [address] [place] [address] David Workman MD [address] [place] [address] 05/19/2025 1:00 PM EST Office Visit [facility] at [facility] [address] [place] [address] Leslie Suarez, DO [address] [place] [address] 09/30/2025 10:10 AM EDT Appointment [facility] Radiology [address] [place] [address] 09/30/2025 11:30 AM EDT Office Visit [facility] Head[facility] Neck [facility] Respiratory [address], 2nd [place] [address] Aysha Crews MD [address] [place] [address] documented as of this encounter [...] documented as of this encounter Care Teams Rail Car Loader Relationship Specialty Start Date End Date Antwan Esparza MD [address] [place] [address] PCP - General 12/14/20 02/18/24 Inna Serrano APRN [address] [place] [address] PCP - General 02/19/24 Ángela Millard APRN [address] [place] [address] Nurse Practitioner Neurosurgery 09/17/21 documented as of this encounter
--- OUTSIDE RECORDS SUMMARY | 2025-04-02 12:38 | XMS_ITS | Encounter Summary ---
Author Organization [facility] Address [address] [place] [address] Care Team Providers Care General Teller Name Role Phone Antwan Esparza MD Primary Care Provider [phone] Ángela Millard DEMOLITION HAMMER OPERATOR Unavailable [phone] Inna Serrano DEMOLITION HAMMER OPERATOR Primary Care Provider + [phone] Encounter Details Date Type Department Care Team (Late Contact Info) Description 07/06/2022 Orders Only External Location [address] [place] [address] Damien Childs MD [address] [place] [address] Social History Tobacco Use Types Packs/Day Years [...] 04/08/2025 12:00 PM EST Office Visit Professional [facility] Nephrology, Bone & Mineral Metabolism [address] [facility], [address] [place] [address] David Workman MD [address] [place] [address] 05/19/2025 1:00 PM EST Office Visit [facility] [address] [place] [address] Adonis Prince LeslieDO [address] [place] [address] 09/30/2025 10:10 AM EDT Appointment [facility] [address] [place] [address] 09/30/2025 11:30 AM EDT Office Visit [facility] Res[facility] [address] 2nd [place] [address] Aysha Crews MD [address] [place] [address] documented as of this encounter [...] documented as of this encounter Care Teams General Teller Relationship Specialty Start Date End Date Antwan Esparza MD [address] [place] [address] PCP - General 12/14/20 02/18/24 Inna Serrano APRN [address] [place] [address] PCP - General 02/19/24 Ángela Millard APRN [address] [place] [address] Nurse Practitioner Neurosurgery 09/17/21 documented as of this encounter
--- OUTSIDE RECORDS SUMMARY | 2025-04-02 12:38 | XMS_ITS | Encounter Summary ---
Author Organization [facility] Address [address] [place] [address] Care Team Providers Care Flat Breakdown Processor Name Role Phone Delmer Fritz MD Primary Care Provider [phone] Antwan Esparza MD Primary Care Provider + [phone] Ángela Millard MACHINE TURNER Unavailable [phone] Inna Serrano APRN Primary Care Provider + [phone] Encounter Details Date Type Department Care Team (Late st Contact Info) Description 07/30/2018 Orders Only External Location [address] [place] [address] Provider, External Social History Tobacco Use Types [...] Description 04/08/2025 12:00 PM EST Office Visit [facility]ph[facility], Bone & Mineral Metabolism [address] [facility], [address] [place] [address] David Workman MD [address] [place] [address] 05/19/2025 1:00 PM EST Office Visit [facility] [address] [place] [address] Leslie Suarez DO [address] [place] [address] 09/30/2025 10:10 AM EDT Appointment [facility] [address] [place] [address] 09/30/2025 11:30 AM EDT Office Visit [facility] [address] [place] [address] Aysha Crews MD [address] [place] [address] documented as of this encounter [...] on filedocumented in this encounter Care Teams Flat Breakdown Processor Relationship Specialty Start Date End Date Delmer Fritz MD [address] [facility] [address] [place] [address] PCP - General 10/02/20 12/13/20 Antwan Esparza MD [address] [place] [address] PCP - General 12/14/20 02/18/24 Inna Serrano APRN [facility] [place] [address] PCP - General 02/19/24 Ángela Millard APRN [address] [facility] [address] [place] [address] Nurse Practitioner Neurosurgery 09/17/21 documented as of this encounter
--- OUTSIDE RECORDS SUMMARY | 2025-04-02 12:38 | XMS_ITS | Encounter Summary ---
Author Organization Healthcare Address [address] [place] [address] Care Team Providers Care Postdoctoral Research Fellow Name Role Phone Antwan Esparza MD Primary Care Provider + [phone] Ángela Millard COAT CUTTER Unavailable [phone] Inna Serrano APRN Primary Care Provider + [phone] Encounter Details Date Type Department Care Team (Late Contact Info) Description 02/01/2021 Orders Only External Location [address] [place] [address] Provider, External Social History Tobacco Use Types [...] [facility], [address] [place] [address] David Workman MD [address] [place] [address] 05/19/2025 1:00 PM EST Office Visit [facility] [address] [place] [address] Leslie Suarez, DO [address] [place] [address] 09/30/2025 10:10 AM EDT Appointment [facility] [address] [place] [address] 09/30/2025 11:30 AM EDT Office Visit [facility] [address] [place] [address] Aysha Crews MD [address] [place] [address] documented as of this encounter [...] documented as of this encounter Care Teams Postdoctoral Research Fellow Relationship Specialty Start Date End Date Antwan Esparza MD [address] [place] [address] PCP - General 12/14/20 02/18/24 Inna Serrano APRN [address] [place] [address] PCP - General 02/19/24 Ángela Millard APRN [address] [place] [address] Nurse Practitioner Neurosurgery 09/17/21 documented as of this encounter
--- OUTSIDE RECORDS SUMMARY | 2025-04-02 12:38 | XMS_ITS | Encounter Summary ---
Author Organization [facility] Address [address] [place] [address] Care Team Providers Care Vice President [employer] Name Role Phone Delmer Fritz MD Primary Care Provider [phone] Reason for Visit * Reason Onset Date Comments MEDICATION CONCERN 02/19/2025 Encounter Details Date Type Department Care Team (Late st Contact Info) Description 02/19/[address] 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
--- OUTSIDE RECORDS SUMMARY | 2025-04-02 12:38 | XMS_ITS | Encounter Summary ---
Author Organization [facility] Address [address] [place] [address] Care Team Providers Care Trolley Cleaner Name Role Phone Antwan Esaprza MD Primary Care Provider + [phone] Ángela Millard TELETYPE CLERK Unavailable [phone] Inna Serrano APRN Primary Care Provider + [phone] Encounter Details Date Type Department Care Team (Late Contact Info) Description 02/01/2021 Orders Only External Location [address] [place] [address] Provider, External Social History Tobacco Use Types [...] Description 04/08/2025 12:00 PM EST Office Visit [facility] Nephrology, Bone & Mineral Metabolism [address] [facility], [address] [place] [address] David Workman MD [address] [place] [address] 05/19/2025 1:00 PM EST Office Visit [facility] at [facility] [address] [place] [address] Leslie Suarez, DO [address] [place] [address] 09/30/2025 10:10 AM EDT Appointment [facility] [address] [place] [address] 09/30/2025 11:30 AM EDT Office Visit [facility] Res[facility] [address] [place] [address] Aysha Crews MD [address] [place] [address] documented as of this [...] documented as of this encounter Care Teams Trolley Cleaner Relationship Specialty Start Date End Date Antwan Esparza MD [address] [place] [address] PCP - General 12/14/20 02/18/24 Inna Serrano APRN [address] [place] [address] PCP - General 02/19/24 Ángela Millard APRN [address] [place] [address] Nurse Practitioner Neurosurgery 09/17/21 documented as of this encounter
--- OUTSIDE RECORDS SUMMARY | 2025-04-02 12:38 | XMS_ITS | Encounter Summary ---
Author Organization [facility] Address [address] [place] [address] Care Team Providers Care Customer Resolution Specialist Name Role Phone Delmer Fritz MD Primary Care Provider [phone] Antwan Esparza MD Primary Care Provider + [phone] Ángela Millard JEWELRY FINISHER Unavailable [phone] Inna Serrano APRN Primary Care Provider + [phone] Encounter Details Date Type Department Care Team (Late st Contact Info) Description 02/08/2017 Orders Only External Location [address] [place] [address] Provider, External Social History Tobacco Use Types [...] Description 04/08/2025 12:00 PM EST Office Visit [facility] Nephrology, Bone & Mineral Metabolism [address] [facility], [address] [place] [address] David Workman MD [address] [place] [address] 05/19/2025 1:00 PM EST Office Visit [facility] at [facility] [address] [place] [address] Leslie Suarez DO [address] [place] [address] 09/30/2025 10:10 AM EDT Appointment [facility] [address] [place] [address] 09/30/2025 11:30 AM EDT Office Visit [facility] Res[facility] [address] [place] [address] Aysha Crews MD [address] [facility] [address] [place] [address] documented as of this encounter [...] on filedocumented in this encounter Care Teams Customer Resolution Specialist Relationship Specialty Start Date End Date Delmer Fritz MD [address] [facility] [address] [place] [address] PCP - General 10/02/20 12/13/20 Antwan Esparza MD [address] [place] [address] PCP - General 12/14/20 02/18/24 Inna Serrano APRN [facility] [place] [address] PCP - General 02/19/24 Ángela Millard APRN [address] [facility] [address] [place] [address] Nurse Practitioner Neurosurgery 09/17/21 documented as of this encounter
--- OUTSIDE RECORDS SUMMARY | 2025-04-02 12:38 | XMS_ITS | Encounter Summary ---
Author Organization [facility] Address [address] [place] [address] Care Team Providers Care Supervisor Feed House Name Role Phone Antwan Esparza MD Primary Care Provider + [phone] Ángela Millard SUPERVISOR SANDBLASTER Unavailable [phone] Inna Serrano APRN Primary Care Provider + [phone] Encounter Details Date Type Department Care Team ([facility] Contact Info) Description 08/06/2021 Orders Only External Location [address] [place] [address] Provider, External Social History Tobacco Use Types [...] Department Care Team ([facility] Contact Info) Description 04/08/2025 12:00 PM EST Office Visit [facility] Nephrology, Bone & Mineral Metabolism [address] [facility], [address] [place] [address] David Workman MD [address] [place] [address] 05/19/2025 1:00 PM EST Office Visit [facility] [address] [place] [address] Adonis Prince LeslieDO [address] [place] [address] 09/30/2025 10:10 AM EDT Appointment [facility] [address] [place] [address] 09/30/2025 11:30 AM EDT Office Visit [facility] Res[facility] [address] [place] [address] Aysha Crews MD [address] [place] [address] documented as of this encounter [...] as of this encounter Care Teams Supervisor Feed House Relationship Specialty Start Date End Date Antwan Esparza MD [address] [place] [address] PCP - General 12/14/20 02/18/24 Inna Serrano APRN [address] [place] [address] PCP - General 02/19/24 Ángela Millard APRN [address] [address] Nurse Practitioner Neurosurgery 09/17/21 documented as of this encounter
--- OUTSIDE RECORDS SUMMARY | 2025-04-02 12:38 | XMS_ITS | Data Portability ---
Author Organization [place] - [facility] [place] [facility] ADMIN Address [address] [place] [id number] Care Team Providers Care Dining Room Attendant Name Role Phone APOLINAR MARISCAL Primary Care [...] of tobacco and alcohol 6-8 week f/u [email or web address] Not available 11/06/2023 16:37:06 Plan of Treatment Reminders Order Date Submit Date Provider Last Modified By Organization Details Last Modified Time Details Appointments None record ed. Lab None record ed. Referral dermat ologis t referr al 2022 023 [facility], [address] [place], [address], 3 14:32:26 endocr inolog y referr al - thyroi d nodule 2022 023 [facility] , [address] [place] [address], [place], [address], 3 05:01:47 Procedures None record ed. Surgeries None record ed. Imaging CT, chest, w/o contra st [address] (Scheduling), [address], [place], [address], 3 10:16:35 Medication Orders pantop razole 40 mg tablet ,delay ed releas e 2023 024 [facility], [address] [facility] [address] Mel[address] TiradoT[address]as [place], [id number], 4 15:07:34 Patient TargetsNo targets recorded. Patient InstructionsNo instructions recorded. Reason for Referral Endocrinology Referral for T hyroid nodule thyroid nodule Referring Physician: Jose Mccracken, Hematology/Oncology, Encounter Date: 07/29/2022 Hand Profiler Referral for S kin lesion Referring Physician: Jose Mccracken, Hematology/Oncology, Encounter Date: 02/01/2023 Results Created Date Observation Date Name Description Value Unit Range Abnormal Flag Note LastModifiedBy Organization Detail LastModifiedTime 07/26/19 23 05/24/2022 US, thyro id No observ ation record ed. [email or web address] [facility] (Med Record) [address], [place], [address], 07/26/2022 08:54:38 12/20/1912/14/2022 imagi ng/di agnos tic resul t No observ ation record ed. [address], [place], [address], 12/20/2022 06:28:04 12/22/1912/30/2018 CT, chest , w/ contr ast No observ ation record ed. [address] [facility], [place], [address], 12/22/2022 10:08:15 01/11/2012/14/2022 CT, chest , w/ contr ast No observ ation record ed. [address] [facility] [address] [facility], [place], [address], 01/11/2023 13:35:49 01/28/2001/25/2023 CT, chest , w/o contr ast No observ ation record ed. [email or web address] [facility] [address], [place], [address], 01/27/2023 12:44:10 02/02/2005/13/2020 CT, chest , w/ contr ast No observ ation record ed. [email or web address] [facility] (Med Record) [address], [place], [address], 02/01/2023 14:01:06 02/02/20 23 05/13/2020 CT, chest , w/ contr ast No observ ation record ed. [email or web address] [address], [place], [address], 02/02/2023 08:58:00 07/04/19 25 06/26/2024 CT, chest , w/ contr ast No observ ation record ed. [email or web address] [facility] (Med Record) [address], [place], [address], 07/04/2024 15:40:52 08/17/19 25 PET, skull base to mid-t high No observ ation record ed. [email or web address] Not Available 2024 12:39:53 Result Notes None recorded. Procedures Surgical History Date Name Laterality Status Provider Name and Address Organization Details Recorded Time 021 Gastrointestinal Surgery completed Neo Patton [place] - [facility] [place] 11/06/2023 14:00:49 Imaging Results None recorded. Procedure Notes None recorded. Medical Equipment None Reported. Allergies Allergen ID Allergen Name Allergen Category Reaction Reaction Severity Criticality Documentation Date Start Date Code Code System Note Provider Name and Address Organization Details Recorded Time 015507 Cipro medicatio n Not available Not available Not available 11/06/2023 78132 3 RxNorm Neo ruano null, [place] - NT [facility] [place] 4 14:11:53 327992 Product containin g glucocort icoid (product) medicatio n Not available Not available Not available 11/06/2023 36696 6006 SNOMED Neo ruano null, [place] - [place] [facility] [place] 4 14:12:04 092241 erythromy deborah medicatio n Not available Not available Not available 11/06/2023 4053 RxNorm Neo ruano null, [place] - [facility] [place] 4 14:12:12 161446 Fish (substanc e) food,medi cation Not available Not available Not available 11/06/2023 06323 1005 SNOMED Neo ruano null, [place] - [facility] [place] 4 14:12:27 130330 iopamidol medicatio n Not available Not available Not available 11/06/2023 5966 RxNorm Neo ruano null, [place] - [facility] [place] 4 14:12:34 524163 lisinopri l medicatio n Not available Not available Not available 11/06/2023 41438 RxNorm Neo ruano null, [place] [facility] [place] 4 14:12:45 430218 losartan medicatio n Not available Not available Not available 11/06/2023 57736 RxNorm Neo Bartletto n [place] [facility] [place] 4 14:12:52 034622 Non-stero idal anti-infl ammatory agent (substanc e) medicatio n Not available Not available Not available 11/06/2023 40931 5008 SNOMED Neo Bartletto n [place] [facility] [place] 4 14:12:58 573511 Product containin g penicilli n (product) medicatio n Not available Not available Not available 11/06/2023 53416 8001 SNOMED Neo Bartletto n [place] [facility] [place] 4 14:13:04 975948 tramadol medicatio n Not available Not available Not available 11/06/2023 75792 RxNorm Neo Bartletto n [place] [facility] [place] 4 14:13:11 028862 albuterol medicatio n Not available Not available Not available 11/06/2023 435 RxNorm Neo Bartletto n [place] [facility] [place] 4 14:13:29 542483 Iodinated contrast media (substanc e) medicatio n Not available Not available Not available 11/06/2023 47945 2004 SNOMED Neo Bartletto n [place] [facility] [place] 4 14:13:36 Medications Name Sig Start Date [...] and Address Organization Details Last Updated DateTime 4 530510. 05 g 34.6 kg/m2 182.88 cm 97.7 [degF] 97 % 97 % 84 /min 164/111 mm[Hg] Neo VICENTE [facility] [place] 14:05:35 Social History Question Answer Notes LastModified by Organizat ion Details LastModified Time Tobacco Smoking Status Former Smoker [place] [facility] [place] 11/06/2023 14:00:43 Do You Have An Advance Directive? Yes [email or web address] Information not available 11/06/2023 Are You Blind Or Do You Have Difficulty Seeing? Yes [email or web address] Information not available 11/06/2023 What Was The Date Of Your Most Recent Tobacco Screening? 07/24/2022 [email or web address] Information not available 11/06/2023 Are You Passively Exposed To Smoke? No [email or web address] Information not available 11/06/2023 How Much Tobacco Do You Smoke? No [email or web address] Information not available 11/06/2023 How Many Years Have You Smoked Tobacco? 35 [email or web address] Information not available 11/06/2023 Sex: Unknown Functional Status Question Answer Note LastModified by Organizat ion Details LastModified Time Do you use any illicit or recreational drugs? No [email or web address] Information not available 11/06/2023 What is your level of alcohol consumption? None [email or web address] Information not available 11/06/2023 Do you or have you ever used smokeless tobacco? Never used smokeless tobacco Information not available 11/06/2023 What is your exercise level? Moderate [email or web address] Information not available 11/06/2023 Mental Status Question Answer Note LastModified by Organization D etails LastModified Time Do you feel stressed (tense, restless, nervous, or anxious, or unable to sleep at night)? [id number] [email or web address] Information not available 11/06/2023 Family History Relationship [...] Y Back Problems Y Thyroid Problems Y GI Problems Y Lung Disease Y COPD Y Osteoporosis/Osteopenia Y Heart Disease Y Hypertension Y Neurological Problems Y Immunizations Vaccine Type Date Status Note Provider Nam e and Address Organization Details Recorded Time influenza, intradermal, quadrivalent, preservative free 9 completed [place], [place] - [facility] [place] [facility] [place] 10/27/2023 08:17:10 Pneumococcal conjugate PCV 13 9 completed [place], [place] [facility] [place] [facility] [place] 10/27/2023 08:17:10 Td (adult), 2 Lf tetanus toxoid, preservative free, adsorbed 4 completed [place], [place] [facility] [place] [facility] [place] 10/27/2023 08:17:10 DTaP 4 completed [place], [place] [facility] [place] [facility] [place] 10/27/2023 08:17:10 Past Encounters Encounter ID Performer Location Encounter Start Date Encounter Closed Date Diagnosis/Indication Diagnosis SNOMED-CT Code Diagnosis ICD10 Code Diagnosis IMO Codes Diagnosis Note [id number] Jose Mccracken MD [facility] [address] [facility] [address] [place] [address] 07/29/2022 12:03:08 07/29/2022 12:07:25 Multiple nodules of lung 272105431 R91.8 Patient with long history of pulmonary nodules. Patient follows with Pulmonary Medicine. Patient has been seen previously [facility] by Pulmonary Medicine as well as CT [...] swallowing . Patient seen by ENT at [facility] and no interventi on planned. Telephone visit [...] and ended at 12:05 p.m.. Thyroid nodule 074756080 E04.1 Ultrasound of the thyroid performed on [...] swallowing . Patient seen by ENT at [facility] and no interventi on planned. 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 Thrombocyt openic disorder 460605793 D69.6 Labs on December 24, 2020 with white blood cell count 7.7. Red blood count 5.2. Hemoglobin 16.5 and hematocrit 47.0. Platelet count 735463. Normal cell differenti al. Patient recently seen at [facility] and had labs performed on October 15, 2021. White blood cell count 7.2. Red blood count 5.24. Hemoglobin 16.8 and hematocrit 47.9. MCV 91.3. MCH 32.0. Platelet count 243258. GFR greater than 60. Creatinine 1.0. Normal liver function testing.Pr eviously on imaging from April 2020 patient had mild splenomega ly with spleen at 14 cm. If platelet count continues to decrease would repeat imaging. [id number] Jose Mccracken MD [facility] [address] [place] [address] 12/16/2022 10:28:44 12/16/2022 11:45:01 Multiple nodules of lung 882310109 R91.8 Patient with long history of pulmonary nodules. Patient follows with Pulmonary Medicine. Patient has been seen previously [facility] by Pulmonary Medicine as well as CT [...] patient recently seen by CT surgery at [facility]. Previously has been evaluated by Cardiology at [facility] for congestive heart failure. Patient has decrease in ejection fraction and difficulty with hypertensi on. During the course of last few weeks patient has had blood pressure medication altered to help lower his blood pressure. Cardiac imaging performed at [facility] with concern for cardiac nodularity . Patient had biopsy of myocardium on December 15, 2022 at [facility]. Will follow-up pathology. Patient concern for possible malignancy verses etiology of congestive heart failure. Will follow-up pathology sampling. Plan see the patient back for phone visit next few weeks. Thyroid nodule 237042783 E04.1 Ultrasound of the thyroid performed on [...] swallowing . Patient seen by ENT at [facility] and no interventi on planned. 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 Thrombocyt openic disorder 324532248 D69.6 Labs on December 24, 2020 with white blood cell count 7.7. Red blood count 5.2. Hemoglobin 16.5 and hematocrit 47.0. Platelet count 999310. Normal cell differenti al. Patient recently seen at [facility] and had labs performed on October 15, 2021. White blood cell count 7.2. Red blood count 5.24. Hemoglobin 16.8 and hematocrit 47.9. MCV 91.3. MCH 32.0. Platelet count 332933. GFR greater than 60. Creatinine 1.0. Normal liver function testing.Pr eviously on imaging from April 2020 patient had mild splenomega ly with spleen at 14 cm. If platelet count continues to decrease would repeat imaging. Chronic sy stolic heart failure 987606326 I50.22 Recent diagnosis in 2022 of congestive heart failure. Decrease in ejection fraction. Long history of hypertensi on.Myometr ium biopsy on December 15, 2022. Chronic ob structive pulmonary disease 97219260 J44.9 History of COPD. Patient follows with Pulmonary Medicine. Peripheral vascular disease 124969865 I73.9 Patient seen by vascular surgery at [facility]. Difficulty with peripheral circulatio n and findings of peripheral vascular disease. Patient was also diagnosed with congestive heart failure around this time. [id number] Jose Mccracken MD [facility] [address] [place] [address] 02/01/2023 14:16:47 02/01/2023 15:10:02 Multiple nodules of lung 528896930 R91.8 Patient with long history of pulmonary nodules. Patient follows with Pulmonary Medicine. Patient has been seen previously [facility] by Pulmonary Medicine as well as CT [...] from May 13, 2020. Imaging performed at [facility]. No findings of axillary adenopathy . Small [...] from recent imaging. Discussed continued follow-up as neededWcahsity d plan to repeat CT scan of the chest as well as abdomen in July 2023. Will follow-up. Telephone visit began at 2:45 p.m. and ended at 3:05 p.m.. Thyroid nodule 172514731 E04.1 Ultrasound of the thyroid performed on [...] swallowing . Patient seen by ENT at [facility] and no interventi on planned. Telephone visit [...] thyroidect gideon on March 02, 2023 at [facility]. 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 Thrombocyt openic disorder 922911651 D69.6 Labs on December 24, 2020 with white blood cell count 7.7. Red blood count 5.2. Hemoglobin 16.5 and hematocrit 47.0. Platelet count 110122. Normal cell differenti al. Patient recently seen at [facility] and had labs performed on October 15, 2021. White blood cell count 7.2. Red blood count 5.24. Hemoglobin 16.8 and hematocrit 47.9. MCV 91.3. MCH 32.0. Platelet count 690166. GFR greater than 60. Creatinine 1.0. Normal liver function testing. Previously on imaging from April 2020 patient had mild splenomega ly with spleen at 14 cm. If platelet count continues to decrease would repeat imaging. Stable findings on imaging from January 25, 2023. Chronic sy stolic heart failure 339714040 I50.22 Recent diagnosis in 2022 of congestive heart failure. Decrease in ejection fraction. Long history of hypertensi on.Myometr ium biopsy on December 15, 2022. Chronic ob structive pulmonary disease 62391439 J44.9 History of COPD. Patient follows with Pulmonary Medicine. Peripheral vascular disease 677877867 I73.9 Patient seen by vascular surgery at [facility]. Difficulty with peripheral circulatio n and findings of peripheral vascular disease. Patient was also diagnosed with congestive heart failure around this time. Skin lesion 73322991 L98 .9 Patient reports dark skin lesion under left arm. Patient requesting to be seen by Dermatolog y. Will make referral [id number] Jose Mccracken MD [facility] [address] [place] [address] 03/22/2023 15:04:08 03/23/2023 06:54:50 Multiple nodules of lung 088446187 R91.8 Patient with long history of pulmonary nodules. Patient follows with Pulmonary Medicine. Patient has been seen previously [facility] by Pulmonary Medicine as well as CT [...] from May 13, 2020. Imaging performed at [facility]. No findings of axillary adenopathy . Small mediastina l lymph nodes unchanged from 2019. Emphysemat ous changes noted. Small 5 mm posterior lower lobe nodule that is stable and unchanged from CT scan from April 2020. No new masses or nodules. Heart is normal in size. No pericardia l or pleural effusion. Thyroid nodule 637714821 E04.1 Ultrasound of the thyroid performed on [...] swallowing . Patient seen by ENT at [facility] and no interventi on planned.Pl anned to have total thyroidect gideon on March 02, [address] [facility]. CT scan of the chest performed on January 25, 2023 with comparison to imaging from May 13, 2020. Imaging performed at [facility]. No findings of axillary adenopathy . Small mediastina l lymph nodes unchanged from 2019. Emphysemat ous changes noted. Small 5 mm posterior lower lobe nodule that is stable and unchanged from CT scan from April 2020. No new masses or nodules. Heart is normal in size. No pericardia l or pleural effusion. Patient was recently seen by Endocrinol [facility]. 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 Thrombocyt openic disorder 903310298 D69.6 Labs on December 24, 2020 with white blood cell count 7.7. Red blood count 5.2. Hemoglobin 16.5 and hematocrit 47.0. Platelet count 701108. Normal cell differenti al. Patient recently seen at [facility] and had labs performed on October 15, 2021. White blood cell count 7.2. Red blood count 5.24. Hemoglobin 16.8 and hematocrit 47.9. MCV 91.3. MCH 32.0. Platelet count 496102. GFR greater than 60. Creatinine 1.0. Normal liver function testing. Previously on imaging from April 2020 patient had mild splenomega ly with spleen at 14 cm. If platelet count continues to decrease would repeat imaging. Stable findings on imaging from January 25, 2023. Chronic sy stolic heart failure 644373385 I50.22 Recent diagnosis in 2022 of congestive heart failure. Decrease in ejection fraction. Long history of hypertensi on.Myometr ium biopsy on December 15, 2022. Chronic ob structive pulmonary disease 90792716 J44.9 History of COPD. Patient follows with Pulmonary Medicine. Peripheral vascular disease 795806200 I73.9 Patient seen by vascular surgery at [facility]. Difficulty with peripheral circulatio n and findings of peripheral vascular disease. Patient was also diagnosed with congestive heart failure around this time. Lower extremity edema multifacto rial. Patient with congestive heart failure as well as peripheral vascular disease. 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 Diverticul osis of colon 470964262 K57.30 Diverticulitis 059742893 K57.92 Umbilical hernia 5453006 07 K42.9 Health Concerns Section Related Observation LastModified by Organization Detai ls LastModified Time None Recorded Concern Status LastModified by Organization Details LastModified Time None Recorded Advance Directives Directive Y: Payers Insurance Date Sequence Insurance Name Policy Number Policy Morton Covered Member ID Morton Member ID Guarantor Name 03/01/2019 1 [employer] (MEDICAID REPLACEMENT - HMO) [id number] Luca Kauffman [id number] Luca Kauffman 11/03/2023 1 [facility] (MEDICAID HMO) [id number] Luca Kauffman [id number] Luca Kauffman Notes Date Note Type Note [...] 2020 the patient reports being seen at [facility] by CT surgery as well as Pulmonary Medicine. Patient had bronchoscopy for evaluation of pulmonary nodules. Have requested records. Patient also reports having surgery with a nodule removed. Will follow-up pathology evaluation.[facility]:PET scan performed on October 11, 2019 [...] following PET scan had EBUS performed at [facility] with Pulmonary Medicine. Lymph nodes sampled was [...] Hemoglobin 16.5 and hematocrit 47.0. Platelet count 645687. Normal cell differential.Patient recently seen at [facility] and had labs performed on October 15, 2021. White blood cell count 7.2. Red blood count 5.24. Hemoglobin 16.8 and hematocrit 47.9. MCV 91.3. MCH 32.0. Platelet count 578367. GFR greater than 60. Creatinine 1.0. Normal [...] with swallowing. Patient seen by ENT at [facility] and no intervention planned. Telephone visit on July 29, 2022. Discussed repeat CT scan of the chest and will proceed with repeat in December 2022. discussed potential evaluation with Endocrinology due to thyromegaly. Patient is on a regular diet. Will consult with Endocrinology if any further testing needs to be performed of thyromegaly. Jose Mccracken MD [address], [place], [address], [place] - [facility] - [place] [facility] [place] 07/29/2022 12:05:46 12/16/2022 text/html 57 yo M [...] 2020 the patient reports being seen at [facility] by CT surgery as well as Pulmonary Medicine. Patient had bronchoscopy for evaluation of pulmonary nodules. Have requested records. Patient also reports having surgery with a nodule removed. Will follow-up pathology evaluation.[facility] obtained:PET scan performed on October 11, 2019 [...] following PET scan had EBUS performed at [facility] with Pulmonary Medicine. Lymph nodes sampled was [...] Hemoglobin 16.5 and hematocrit 47.0. Platelet count 328384. Normal cell differential.Patient recently seen at [facility] and had labs performed on October 15, 2021. White blood cell count 7.2. Red blood count 5.24. Hemoglobin 16.8 and hematocrit 47.9. MCV 91.3. MCH 32.0. Platelet count 843888. GFR greater than 60. Creatinine 1.0. Normal [...] with swallowing. Patient seen by ENT at [facility] and no intervention planned. Telephone visit on July 29, 2022. Discussed repeat CT scan of the chest and will proceed with repeat in December 2022. discussed potential evaluation with Endocrinology due to thyromegaly. Telephone visit on December 16, 2022. Telephone visit began at 11:15 a.m. and ended at 11:35 a.m. patient recently seen by CT surgery at [facility]. Previously has been evaluated by Cardiology at [facility] for congestive heart failure. Patient has decrease in ejection fraction and difficulty with hypertension. During the course of last few weeks patient has had blood pressure medication altered to help lower his blood pressure. Cardiac imaging performed at [facility] with concern for cardiac nodularity. Patient had biopsy of myocardium on December 15, 2022 at [facility]. Will follow-up pathology. Patient concern for possible malignancy verses etiology of congestive heart failure. Will follow-up pathology sampling. Plan see the patient back for phone visit next few weeks. Jose Mccracken MD [address] [facility], [place], [address], [place] - [facility] [place] [facility] [place] 12/16/2022 11:43:41 02/01/2023 text/html 57 yo M [...] 2019 the patient reports being seen at [facility] by CT surgery as well as Pulmonary Medicine. Patient had bronchoscopy for evaluation of pulmonary nodules. Have requested records. Patient also reports having surgery with a nodule removed. Will follow-up pathology evaluation.[facility] obtained:PET scan performed on October 11, 2019 [...] following PET scan had EBUS performed at [facility] with Pulmonary Medicine. Lymph nodes sampled was [...] Hemoglobin 16.5 and hematocrit 47.0. Platelet count 129755. Normal cell differential.Patient recently seen at [facility] and had labs performed on October 15, 2021. White blood cell count 7.2. Red blood count 5.24. Hemoglobin 16.8 and hematocrit 47.9. MCV 91.3. MCH 32.0. Platelet count 114184. GFR greater than 60. Creatinine 1.0. Normal [...] with swallowing. Patient seen by ENT at [facility] and no intervention planned. Telephone visit on July 29, 2022. Discussed repeat CT scan of the chest and will proceed with repeat in December 2022. discussed potential evaluation with Endocrinology due to thyromegaly. Telephone visit on December 16, 2022. Telephone visit began at 11:15 a.m. and ended at 11:35 a.m. patient recently seen by CT surgery at [facility]. Previously has been evaluated by Cardiology at [facility] for congestive heart failure. Patient has decrease in ejection fraction and difficulty with hypertension. During the course of last few weeks patient has had blood pressure medication altered to help lower his blood pressure. Cardiac imaging performed at [facility] with concern for cardiac nodularity. Patient had biopsy of myocardium on December 15, 2022 at [facility]. Will follow-up pathology. CT scan of the chest performed on January 25, 2023 with comparison to imaging from May 13, 2020. Imaging performed at [facility]. No findings of axillary adenopathy. Small mediastinal [...] continued follow-up as needed Jose Mccracken MD [address] [facility], [place], [address], [place] - [place] & [place] 02/01/2023 15:08:02 03/22/2023 text/html 57 yo M [...] 2019 the patient reports being seen at [facility] by CT surgery as well as Pulmonary Medicine. Patient had bronchoscopy for evaluation of pulmonary nodules. Have requested records. Patient also reports having surgery with a nodule removed. Will follow-up pathology evaluation.Records from [facility] hospital obtained:PET scan performed on October [...] following PET scan had EBUS performed at [facility] with Pulmonary Medicine. Lymph nodes sampled was [...] Hemoglobin 16.5 and hematocrit 47.0. Platelet count 966226. Normal cell differential.Patient recently seen at [facility] and had labs performed on October 15, 2021. White blood cell count 7.2. Red blood count 5.24. Hemoglobin 16.8 and hematocrit 47.9. MCV 91.3. MCH 32.0. Platelet count 273265. GFR greater than 60. Creatinine 1.0. Normal [...] with swallowing. Patient seen by ENT at [facility] and no intervention planned. Discussed repeat CT scan of the chest and will proceed with repeat in December 2022. discussed potential evaluation with Endocrinology due to thyromegaly. patient recently seen by CT surgery at [facility]. Previously has been evaluated by Cardiology at [facility] for congestive heart failure. Patient has decrease in ejection fraction and difficulty with hypertension. During the course of last few weeks patient has had blood pressure medication altered to help lower his blood pressure. Cardiac imaging performed at [facility] with concern for cardiac nodularity. Patient had biopsy of myocardium on December 15, 2022 at [facility]. Will follow-up pathology. CT scan of the chest performed on January 25, 2023 with comparison to imaging from May 13, 2020. Imaging performed at [facility]. No findings of axillary adenopathy. Small mediastinal [...] thyromegaly. Patient was recently seen by Endocrinology [facility]. Patient reports having ultrasound of the thyroid [...] from Hematology Oncology perspective. Jose Mccracken MD [address], [place], [address], [place] - [place] 03/22/2023 15:13:00 11/06/2023 text/html CURRENT (11/06/23 Evelia Diaz): Ms. Kauffman is a 57-year-old male who was referred by Apolinar Mariscal for diverticulitis. The patient presented to [facility] with abdominal pain. CT scan performed on 10/06/2023 revealed sigmoid diverticulitis. He was started on antibiotics for treatment. He reports since that time he was started on antibiotics a second time as his lower abdominal pain had not subsided. He is still taking this round of antibiotics. He has an appointment with Dr. Landry at [facility] tomorrow for evaluation of his hernias found on CT scan at that time. 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 Repeat was recommended in 3 years. The patient reports he previously stopped his PPI therapy as he has minimal acid reflux symptoms. He denies nausea, vomiting, hematemesis, hematochezia or melena. BOUBACAR DIAZ MSN, POOL CLEANER, PIANO STRINGER-C [address], [place], [address], [place] 11/06/2023 16:37:59
--- OUTSIDE RECORDS SUMMARY | 2025-04-02 12:38 | XMS_ITS | Encounter Summary ---
Author Organization [facility] Address [address] [place] [address] Care Team Providers Care Media Relations Director Name Role Phone Antwan Esparza MD Primary Care Provider [phone] Ángela Millard VOCATIONAL CASE MANAGER Unavailable [phone] Inna Serrano APRN Primary Care Provider + [phone] Encounter Details Date Type Department Care Team (Late Contact Info) Description 04/06/2022 Orders Only External Location [address] [place] [address] Petra Regalado [address] [id number] Social History Tobacco Use Types Packs/Day Years [...] [address] [facility], [address] [place] [address] David Workman MD [address] [place] [address] 05/19/2025 1:00 PM EST Office Visit [facility] [address] [place] [address] Adonis Morrison LeslieDO [address] [place] [address] 09/30/2025 10:10 AM EDT Appointment [facility] Radiology [address] [place] [address] 09/30/2025 11:30 AM EDT Office Visit [facility]ck [facility] Respiratory [address]nd [place] [address] Aysha Crews MD [address] [facility] [address] [place] [address] documented as of this encounter Procedures Procedure Name Priority Date/Time Associated Diagnosis Comments MR MSK OUTSIDE IMAGES 04/06/2022 1:22 PM EST documented in this encounter Results * MR MSK OUTSIDE IMAGES (04/06/2022 1:22 PM EST) Anatomical Region Laterality Modality Magnetic Resonan ce 04/06/2022 1:22 PM EST Petra Regalado [facility] MRI PROCEDURES Final Result documented in this encounter Visit Diagnoses Not on filedocumented in this encounter Additional Health Concerns Assessment Noted Time A fall risk assessment has been complete d for the patient 01/31/2022 1:51 PM EDT documented as of this encounter Care Teams Media Relations Director Relationship Specialty Start Date End Date Antwan Esparza MD [address] [place] [address] PCP - General 12/14/20 02/18/24 Inna Serrano APRN [address] [place] [address] PCP - General 02/19/24 Ángela Millard APRN [address] [place] [address] Nurse Practitioner Neurosurgery 09/17/21 documented as of this encounter
--- OUTSIDE RECORDS SUMMARY | 2025-04-02 12:38 | XMS_ITS | Encounter Summary ---
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 PCI/Device Survey Flowsheet Row [facility] date 02/17/25 Procedure (if device, [...] patient have an appointment scheduled with the battery plate remover? Yes Appointment comments Patient reports that his [...] on filedocumented in this encounter Care Teams Backside Grinder Relationship Specialty Start Date End Date Delmer Fritz MD [address] [place] [address] PCP - General Family Medicine 08/07/24 documented as of this encounter
--- OUTSIDE RECORDS SUMMARY | 2025-04-02 12:38 | XMS_ITS | Encounter Summary ---
Author Organization Healthcare Address [address] [place] [address] Care Team Providers Care Biometrics Consultant Name Role Phone Antwan Esparza MD Primary Care Provider + [phone] Ángela Millard HAND SIZER Unavailable [phone] Inna Serrano APRN Primary Care Provider + [phone] Encounter Details Date Type Department Care Team (Late Contact Info) Description 01/25/2023 Orders Only External Location [address] [place] [address] Provider, External Social History Tobacco Use Types [...] Description 04/08/2025 12:00 PM EST Office Visit [facility] Nephrology, Bone & Mineral Metabolism [address] [facility], [address] [place] [address] David Workman MD [address] [place] [address] 05/19/2025 1:00 PM EST Office Visit [facility] Medicine & Rehabilitation Clinic at [facility] [address] [place] [address] Leslie Suarez DO [address] [place] [address] 09/30/2025 10:10 AM EDT Appointment [facility] Radiology [address] [place] [address] 09/30/2025 11:30 AM EDT Office Visit [facility] Res[facility] [address]nd [place] [address] Aysha Crews MD [address] [place] [address] documented as of this encounter [...] documented as of this encounter Care Teams Biometrics Consultant Relationship Specialty Start Date End Date Antwan Esparza MD [address] [place] [address] PCP - General 12/14/20 02/18/24 Inna Serrano APRN [address] [place] [address] PCP - General 02/19/24 Ángela Millard, BELINDA [address] [place] [address] Nurse Practitioner Neurosurgery 09/17/21 documented as of this encounter
--- OUTSIDE RECORDS SUMMARY | 2025-04-02 12:38 | XMS_ITS | Encounter Summary ---
Author Organization 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 Phase II cardiac rehab referral sent to [facility]. documented in this encounter Plan of Treatment Not on file documented as of this encounter Visit Diagnoses Not on filedocumented in this encounter Care Teams Filling And Stapling Machine Operator Relationship Specialty Start Date End Date Delmer Fritz MD [address] [place] [address] PCP - General Family Medicine 08/07/24 documented as of this encounter
--- OUTSIDE RECORDS SUMMARY | 2025-04-02 12:38 | XMS_ITS | Encounter Summary ---
Author Organization Healthcare Address [address] [place] [address] Care Team Providers Care Non Licensed Nuclear Equipment Operator Name Role Phone Ángela Millard ASSEMBLER FAUCETS Unavailable [phone] Inna Serrano APRN Primary Care Provider [phone] Reason for Visit * Reason Onset Date Comments HCN - Patient Message 01/15/2025 Encounter Details Date Type Department Care Team (Late st Contact Info) Description 01/15/2025 Telephone Physical Medicine & Rehabilitation Clinic at [facility] [address] [facility] [place] [address] Leslie Suarez DO [address] [facility] [address] [place] [address] HCN - Patient Message Social [...] SANDIE Reason for Call: Patient called back embedded case manager is ordering US of kidney plus needle biopsy 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 It is all from drinking water where the PFA was in the water. Best contact number: [phone] (mobile) Optimal time of day to reach caller: ANYTIME Additional comments/information from caller: None Note: Please do not reply to this message. Follow-up communication and further actions as a result of this message need to be communicated with the patient directly, if the patient is not active onMyChart. If the patient is active on MyChart, they will receive notification of the communication/outcome via [employer]. documented in this encounter Plan of Treatment Upcoming Encounters Date Type Department Care Team (Late st Contact Info) Description 04/08/2025 12:00 PM EST Office Visit [facility] Nephrology, Bone & Mineral Metabolism [address] [facility], [address] [place] [address] David Workman MD [address] [place] [address] 05/19/2025 1:00 PM EST Office Visit Physical Medicine & Rehabilitation Clinic at [facility] [address] [place] [address] Leslie Suarez DO [address] [place] [address] 09/30/2025 10:10 AM EDT Appointment [facility] Radiology [address] [place] [address] 09/30/2025 11:30 AM EDT Office Visit [facility] Head[facility] Ne[facility] Respiratory [address] [place] [address] Aysha Crews MD [address] [place] [address] documented as of this encounter Visit Diagnoses Not on filedocumented in this encounter Additional Health Concerns Assessment Noted Time A fall risk assessment has been complete d for the patient 01/08/2025 1:58 PM EDT A Body Mass Index follow-up plan has been documented for the patient 01/08/2025 3:33 PM EDT documented as of this encounter Care Teams Non Licensed Nuclear Equipment Operator Relationship Specialty Start Date End Date Inna Serrano APRN [address] [place] [address] PCP - General 02/19/24 Ángela Millard APRN [address] [place] [address] Nurse Practitioner Neurosurgery 09/17/21 documented as of this encounter
--- OUTSIDE RECORDS SUMMARY | 2025-04-02 12:38 | XMS_ITS | Encounter Summary ---
Author Organization Healthcare Address [address] [place] [address] Care Team Providers Care Automation Consultant Name Role Phone Delmer Fritz MD Primary Care Provider [phone] Antwan Esparza MD Primary Care Provider [phone] Ángela Millard SEPARATOR OPERATOR Unavailable [phone] Inna Serrano APRN Primary Care Provider + [phone] Encounter Details Date Type Department Care Team (Late st Contact Info) Description 03/19/2015 Orders Only External Location [address] [place] [address] Provider, External Social History Tobacco Use Types [...] Description 04/08/2025 12:00 PM EST Office Visit [facility] Nephrology, Bone & Mineral Metabolism [address] [facility], [address] [place] [address] David Workman MD [address] [place] [address] 05/19/2025 1:00 PM EST Office Visit Physical Medicine & Rehabilitation Clinic at [facility] [address] [place] [address] Leslie Suarez DO [address] [place] [address] 09/30/2025 10:10 AM EDT Appointment [facility] Radiology [address] [place] [address] 09/30/2025 11:30 AM EDT Office Visit [facility] Res[facility] [address] [place] [address] Aysha Crews MD [address] [place] [address] documented as of this encounter [...] on filedocumented in this encounter Care Teams Automation Consultant Relationship Specialty Start Date End Date Delmer Fritz MD [address] [facility] [address] [place] [address] PCP - General 10/02/20 12/13/20 Antwan Esparza MD [address] [place] [address] PCP - General 12/14/20 02/18/24 Inna Serrano APRN [facility] [place] [address] PCP - General 02/19/24 Ángela Millard APRN [address] [facility] [address] [place] [address] Nurse Practitioner Neurosurgery 09/17/21 documented as of this encounter
--- OUTSIDE RECORDS SUMMARY | 2025-04-02 12:38 | XMS_ITS | Encounter Summary ---
Author Organization Healthcare Address [address] [place] [address] Care Team Providers Care Plastic Parts Designer Name Role Phone Delmer Fritz MD Primary Care Provider [phone] Antwan Esparza MD Primary Care Provider + [phone] Ángela Millard ADVERTISING REPRESENTATIVE Unavailable [phone] Inna Serrano APRN Primary Care Provider + [phone] Encounter Details Date Type Department Care Team (Late st Contact Info) Description 10/30/2012 Orders Only External Location [address] [place] [address] Provider, External Social History Tobacco Use Types [...] Description 04/08/2025 12:00 PM EST Office Visit [facility] Nephrology, Bone & Mineral Metabolism [address] [facility], [address] [place] [address] David Workman MD [address] [place] [address] 05/19/2025 1:00 PM EST Office Visit Physical Medicine & Rehabilitation Clinic at [facility] [address] [place] [address] Leslie Suarez DO [address] [facility] [address] [place] [address] 09/30/2025 10:10 AM EDT Appointment [facility] Radiology [address] [place] [address] 09/30/2025 11:30 AM EDT Office Visit [facility] Res[facility] [address] [place] [address] Aysha Crews MD [address] [place] [address] documented as of [...] on filedocumented in this encounter Care Teams Plastic Parts Designer Relationship Specialty Start Date End Date Delmer Fritz MD [address] [facility] [address] [place] [address] PCP - General 10/02/20 12/13/20 Antwan Esparza MD [address] [place], [place] [id number] PCP - General 12/14/20 02/18/24 Inna Serrano APRN [facility] [place] [address] PCP - General 02/19/24 Ángela Millard APRN [address] [facility] [address] [place] [address] Nurse Practitioner Neurosurgery 09/17/21 documented as of this encounter
--- OUTSIDE RECORDS SUMMARY | 2025-04-02 12:38 | XMS_ITS | Encounter Summary ---
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 Suicidal Behavior (Lifetime) No 6:45 AM EDT Muna Rothman RN documented as of this encounter Plan of Treatment Not on file documented as of this encounter Visit Diagnoses Not on filedocumented in this encounter Care Teams Leaf Sucker Operator Relationship Specialty Start Date End Date Delmer Fritz MD [address] [place] [address] PCP - General Family Medicine 08/07/24 documented as of this encounter
--- OUTSIDE RECORDS SUMMARY | 2025-04-02 12:38 | XMS_ITS | Encounter Summary ---
Author Organization [facility] Address [address] [place] [address] Care Team Providers Care Glove Brusher Name Role Phone Ángela Millard CHILDCARE TEACHER Unavailable [phone] Inna Serrano APRN Primary Care Provider [phone] Reason for Visit * Reason Onset Date Comments HCN - Patient Message 01/21/2025 Encounter Details Date Type Department Care Team (Late st Contact Info) Description 01/21/2025 Telephone Physical Medicine & Rehabilitation Clinic at [facility] [address] [facility] [place] [address] Leslie Suarez DO [address] [facility] [address] [place] [address] HCN - [...] is scheduled for renal ultrasound bx at [place] [facility] today. No call back requested. Best contact number: [phone] (mobile) Optimal time of day to reach [...] [address] [facility], [address] [place] [address] David Workman MD [address] [place] [address] 05/19/2025 1:00 PM EST Office Visit Physical Medicine & Rehabilitation Clinic at [facility] [address] [place] [address] Leslie Suarez DO [address] [place] [address] 09/30/2025 10:10 AM EDT Appointment [facility] Radiology [address] [place] [address] 09/30/2025 11:30 AM EDT Office Visit [facility] Head[facility] Neck & Respiratory [address] [facility], 2nd [place] [address] Aysha Crews MD [address] [facility] [address] [place] [address] documented as of this encounter Visit Diagnoses Not on filedocumented in this encounter Additional Health Concerns Assessment Noted Time A fall risk assessment has been complete d for the patient 01/08/2025 1:58 PM EDT A Body Mass Index follow-up plan has been documented for the patient 01/08/2025 3:33 PM EDT documented as of this encounter Care Teams Glove Brusher Relationship Specialty Start Date End Date Inna Serrano APRN [address] [place], [place] [address] PCP - General 02/19/24 Ángela Millard APRN [address] [place] [address] Nurse Practitioner Neurosurgery 09/17/21 documented as of this encounter
--- OUTSIDE RECORDS SUMMARY | 2025-04-02 12:38 | XMS_ITS | Encounter Summary ---
Author Organization Healthcare Address [address] [place] [address] Care Team Providers Care Polls Or Surveys Interviewer Name Role Phone Delmer Fritz MD Primary Care Provider [phone] Antwan Esparza MD Primary Care Provider + [phone] Ángela Millard ASSOCIATE ART DIRECTOR Unavailable [phone] Inna Serrano APRN Primary Care Provider + [phone] Encounter Details Date Type Department Care Team (Late st Contact Info) Description 05/13/2020 Orders Only External Location [address] [place] [address] Provider, External Social History Tobacco Use Types [...] Description 04/08/2025 12:00 PM EST Office Visit [facility] Nephrology, Bone & Mineral Metabolism [address] [facility], [address] [place] [address] David Workman MD [address] [place] [address] 05/19/2025 1:00 PM EST Office Visit Physical Medicine & Rehabilitation Clinic at [facility] [address] [place] [address] Leslie Suarez DO [address] [place] [address] 09/30/2025 10:10 AM EDT Appointment [facility] Radiology [address] [place] [address] 09/30/2025 11:30 AM EDT Office Visit [facility] Neck & Respiratory [address] [place] [address] Aysha Crews MD [address] [facility] [address] [place] [address] documented as of this encounter [...] on filedocumented in this encounter Care Teams Polls Or Surveys Interviewer Relationship Specialty Start Date End Date Delmer Fritz MD [address] [facility] [address] [place] [address] PCP - General 10/02/20 12/13/20 Antwan Esparza MD [address] [place] [address] PCP - General 12/14/20 02/18/24 Inna Serrano APRN [facility] [place] [address] PCP - General 02/19/24 Ángela Millard APRN [address] [place] [address] Nurse Practitioner Neurosurgery 09/17/21 documented as of this encounter
--- OUTSIDE RECORDS SUMMARY | 2025-04-02 12:38 | XMS_ITS | Encounter Summary ---
Author Organization Healthcare Address [address] [place] [address] Care Team Providers Care Pathology Technologist Name Role Phone Delmer Fritz MD Primary Care Provider [phone] Antwan Esparza MD Primary Care Provider + [phone] Ángela Millard TEAM MEMBER Unavailable [phone] Inna Serrano APRN Primary Care Provider + [phone] Encounter Details Date Type Department Care Team (Late st Contact Info) Description 07/20/2012 Orders Only External Location 800 [place] [address] Vin Ji MD [address] [address] Social History Tobacco Use Types [...] Description 04/08/2025 12:00 PM EST Office Visit [facility] Nephrology, Bone & Mineral Metabolism [address] [facility], [address] [place] [address] David Workman MD 800 [place] [address] 05/19/2025 1:00 PM EST Office Visit [facility] at [facility] [address] [place] [address] Leslie Suarez, [address] [place] [address] 09/30/2025 10:10 AM EDT Appointment [facility] Radiology [address] [place] [address] 09/30/2025 11:30 AM EDT Office Visit [facility] [address], 2nd [place] [address] Aysha Crews MD [address] [place] [address] documented as of this encounter [...] on filedocumented in this encounter Care Teams Pathology Technologist Relationship Specialty Start Date End Date Delmer Fritz MD [address] [facility] [address] [place] [address] PCP - General 10/02/20 12/13/20 Antwan Esparza MD 439 [place] [address] PCP - General 12/14/20 02/18/24 Inna Serrano APRN 1140 [place] [address] PCP - General 02/19/24 Ángela Millard APRN [address] [place] [address] Nurse Practitioner Neurosurgery 09/17/21 documented as of this encounter
--- OUTSIDE RECORDS SUMMARY | 2025-04-02 12:38 | XMS_ITS | Encounter Summary ---
Author Organization Healthcare Address [address] [place] [address] Care Team Providers Care Plater Apprentice Name Role Phone Delmer Fritz MD Primary Care Provider [phone] Antwan Esparza MD Primary Care Provider + [phone] Ángela Millard TREE MARKER Unavailable [phone] Inna Serrano APRN Primary Care Provider + [phone] Encounter Details Date Type Department Care Team (Late st Contact Info) Description 08/27/2018 Orders Only External Location 800 [place] [address] Provider, External Social History Tobacco Use Types [...] Description 04/08/2025 12:00 PM EST Office Visit [facility] Nephrology, Bone & Mineral Metabolism [address] [facility], [address] [place] [address] David Workman MD 800 [place] [address] 05/19/2025 1:00 PM EST Office Visit [facility] at [facility] [address] [place] [address] Leslie Suarez DO [address] [place] [address] 09/30/2025 10:10 AM EDT Appointment [facility] Radiology [address] [place] [address] 09/30/2025 11:30 AM EDT Office Visit [facility] Res[facility] [address], 2nd [place] [address] Aysha Crews MD [address] [place] [address] documented as of this encounter [...] on filedocumented in this encounter Care Teams Plater Apprentice Relationship Specialty Start Date End Date Delmer Fritz MD 430 [facility] [address] [place] [address] PCP - General 10/02/20 12/13/20 Antwan Esparza MD 9 [place] [address] PCP - General 12/14/20 02/18/24 Inna Serrano APRN 1140 [place] [address] PCP - General 02/19/24 Ángela Millard APRN [address] [place] [address] Nurse Practitioner Neurosurgery 09/17/21 documented as of this encounter
--- OUTSIDE RECORDS SUMMARY | 2025-04-02 12:38 | XMS_ITS | Encounter Summary ---
Author Organization Healthcare Address [address] [place] [address] Care Team Providers Care Wrapper Sizer Name Role Phone Delmer Fritz MD Primary Care Provider [phone] Antwan Esparza MD Primary Care Provider + [phone] Ángela Millard MOLD SHOP SUPERVISOR Unavailable [phone] Inna Serrano APRN Primary Care Provider + [phone] Encounter Details Date Type Department Care Team (Late st Contact Info) Description 02/09/2011 Orders Only External Location 800 [place] [address] Vin Ji MD [address] [address] Social History Tobacco Use Types [...] Description 04/08/2025 12:00 PM EST Office Visit [facility] Nephrology, Bone & Mineral Metabolism [address] [facility], [address] [place] [address] David Workman MD 800 [place] [address] 05/19/2025 1:00 PM EST Office Visit [facility] at [facility] [address] [address] Leslie Suarez, [address] [place] [address] 09/30/2025 10:10 AM EDT Appointment [facility] Radiology [address] [place] [address] 09/30/2025 11:30 AM EDT Office Visit [facility] [address], 2nd [place] [address] Aysha Crews MD [address] [place] [address] documented as of this encounter [...] on filedocumented in this encounter Care Teams Wrapper Sizer Relationship Specialty Start Date End Date Delmer Fritz MD 430 [facility] [address] [place] [address] PCP - General 10/02/20 12/13/20 Antwan Esparza MD [address] [place] [address] PCP - General 12/14/20 02/18/24 Inna Serrano APRN 1140 [place] [address] PCP - General 02/19/24 Ángela Millard APRN [address] [address] Nurse Practitioner Neurosurgery 09/17/21 documented as of this encounter
--- OUTSIDE RECORDS SUMMARY | 2025-04-02 12:38 | XMS_ITS | Encounter Summary ---
Author Organization Healthcare Address [address] [place] [address] Care Team Providers Care Photoresist Contact Printer Name Role Phone Antwan Esparza MD Primary Care Provider + [phone] Ángela Millard DIAMOND POWDER TECHNICIAN Unavailable [phone] Inna Serrano APRN Primary Care Provider + [phone] Encounter Details Date Type Department Care Team (Late Contact Info) Description 05/24/2022 Orders Only External Location 800 [place] [address] Provider, External Social History Tobacco Use Types [...] Bone & Mineral Metabolism [address] [facility], [address] [place] [address] David Workman MD 800 [place] [address] 05/19/2025 1:00 PM EST Office Visit [facility] at [facility] [address] [place] [address] Leslie Suarez DO [address] [place] [address] 09/30/2025 10:10 AM EDT Appointment [facility] Radiology [address] [place] [address] 09/30/2025 11:30 AM EDT Office Visit [facility] Res[facility] [address], 2nd [place] [address] Aysha Crews MD [address] [place] [address] documented as of this encounter [...] documented as of this encounter Care Teams Photoresist Contact Printer Relationship Specialty Start Date End Date Antwan Esparza MD 9 [place] [address] PCP - General 12/14/20 02/18/24 Inna Serrano APRN 1140 [place] [address] PCP - General 02/19/24 Ángela Millard APRN [address] [place] [address] Nurse Practitioner Neurosurgery 09/17/21 documented as of this encounter
--- OUTSIDE RECORDS SUMMARY | 2025-04-02 12:38 | XMS_ITS | Encounter Summary ---
Author Organization Healthcare Address [address] [place] [address] Care Team Providers Care Technical Report Writer Name Role Phone Delmer Fritz MD Primary Care Provider [phone] Antwan Esparza MD Primary Care Provider + [phone] Ángela Millard MEDICAL PHYSICS PROFESSOR Unavailable [phone] Inna Serrano APRN Primary Care Provider + [phone] Encounter Details Date Type Department Care Team (Late st Contact Info) Description 08/14/2019 Orders Only External Location 800 [place] [address] Provider, External Social History Tobacco Use Types [...] Description 04/08/2025 12:00 PM EST Office Visit [facility] Nephrology, Bone & Mineral Metabolism [address] [facility], [address] [place] [address] David Workman MD 800 [place] [address] 05/19/2025 1:00 PM EST Office Visit [facility] at [facility] [address] [place] [address] Leslie Suarez DO [address] [place] [address] 09/30/2025 10:10 AM EDT Appointment [facility] Radiology [address] [place] [address] 09/30/2025 11:30 AM EDT Office Visit [facility] Res[facility] [address], 2nd [place] [address] Aysha Crews MD [address] [place] [address] documented as of this encounter [...] filedocumented in this encounter Care Teams Technical Report Writer Relationship Specialty Start Date End Date Delemr Fritz MD 430 [facility] [address] [place] [address] PCP - General 10/02/20 12/13/20 Antwan Esparza MD 9 [place] [address] PCP - General 12/14/20 02/18/24 Inna Serrano APRN [address]0 [place] [address] PCP - General 02/19/24 Ángela Millard APRN [address] [place] [address] Nurse Practitioner Neurosurgery 09/17/21 documented as of this encounter
--- OUTSIDE RECORDS SUMMARY | 2025-04-02 12:38 | XMS_ITS | Encounter Summary ---
Author Organization Healthcare Address [address] [place] [address] Care Team Providers Care Manager Country Name Role Phone Antwan Esparza MD Primary Care Provider + [phone] Ángela Millrad NEGATIVE TURNER Unavailable [phone] Inna Serrano NEGATIVE TURNER Primary Care Provider [phone] Reason for Visit * Reason Onset Date Comments HCN - Patient Message 10/08/2021 Encounter Details Date Type Department Care Team (Late st Contact Info) Description 09/27/2021 Refill [facility] [address] [place] [address] Leslie Suarez, DO [address] [facility] [address] [place] [address] Chronic low back pain, unspecified [...] optimal time of day to reach caller: [phone] Note: Please do not reply to this [...] optimal time of day to reach caller: [phone] Note: Please do not reply to this [...] & Dosage: Hydrocodone Preferred Pharmacy & Location: [facility] Days of medication remaining (if under 3 days please aishwarya as urgent): 4 Best contact number and optimal time of day to reach caller: [phone] Additional comments/information from caller: Pt asked if [...] Nephrology, Bone & Mineral Metabolism [address] [facility], [address] [place] [address] David Workman MD 800 [place] [address] 05/19/2025 1:00 PM EST Office Visit Physical Medicine & Rehabilitation Clinic at [facility] [address] [place] [address] Leslie Suarez DO [address] [place] [address] 09/30/2025 10:10 AM EDT Appointment [facility] Radiology [address] [place] [address] 09/30/2025 11:30 AM EDT Office Visit [facility] Head[facility] Neck & Respiratory [address] [facility], 2nd [place] [address] Aysha Crews MD [address] [facility] [address] [place] [address] documented as of this encounter Visit Diagnoses Diagnosis Chronic low back pain, unspecified back pain laterality, unspecified whether sciatica present documented in this encounter Additional Health Concerns Assessment Noted Time A fall risk assessment has been complete d for the patient 09/17/2021 1:57 PM EDT documented as of this encounter Care Teams Manager Country Relationship Specialty Start Date End Date Antwan Esparza MD [address] [place] [address] PCP - General 12/14/20 02/18/24 Inna Serrano APRN 1140 [place] [address] PCP - General 02/19/24 Ángela Millard APRN [address] [place] [address] Nurse Practitioner Neurosurgery 09/17/21 documented as of this encounter
--- OUTSIDE RECORDS SUMMARY | 2025-04-02 12:38 | XMS_ITS | Encounter Summary ---
Author Organization Healthcare Address [address] [place] [address] Care Team Providers Care Mattress Filling Machine Tender Name Role Phone Antwan Esparza MD Primary Care Provider + [phone] Ángela Millard RECORD FILING CLERK Unavailable [phone] Inna Serrano APRN Primary Care Provider + [phone] Encounter Details Date Type Department Care Team ([facility] Contact Info) Description 08/10/2021 Orders Only External Location 800 [place] [address] Provider, External Social History Tobacco Use Types [...] Encounters Date Type Department Care Team ([facility] Contact Info) Description 04/08/2025 12:00 PM EST Office Visit [facility] Nephrology, Bone & Mineral Metabolism [address] [facility], [address] [place] [address] David Workman MD 800 [place] [address] 05/19/2025 1:00 PM EST Office Visit [facility] [address] [place] [address] Adonis Prince LeslieDO [address] [place] [address] 09/30/2025 10:10 AM EDT Appointment [facility] Radiology [address] [place] [address] 09/30/2025 11:30 AM EDT Office Visit [facility] Neck [facility] Respiratory [address], 2nd [place] [address] Aysha Crews MD [address] [place] [address] documented as of this encounter [...] documented as of this encounter Care Teams Mattress Filling Machine Tender Relationship Specialty Start Date End Date Antwan Esparza MD 439 [place] [address] PCP - General 12/14/20 02/18/24 Inna Serrano APRN 1140 [place] [address] PCP - General 02/19/24 Ángela Millard APRN [address] [place] [address] Nurse Practitioner Neurosurgery 09/17/21 documented as of this encounter
--- OUTSIDE RECORDS SUMMARY | 2025-04-02 12:38 | XMS_ITS | Encounter Summary ---
Author Organization Healthcare Address [address] [place] [address] Care Team Providers Care Fast Food Sales Assistant Name Role Phone Delmer Fritz MD Primary Care Provider [phone] Antwan Esparza MD Primary Care Provider + [phone] Ángela Millard BANKING AND FINANCE INSTRUCTOR Unavailable [phone] Inna Serrano APRN Primary Care Provider + [phone] Encounter Details Date Type Department Care Team (Late st Contact Info) Description 02/28/2020 Orders Only External Location 800 [place] [address] Provider, External Social History Tobacco Use Types [...] Description 04/08/2025 12:00 PM EST Office Visit [facility] Nephrology, Bone & Mineral Metabolism [address] [facility], [address] [place] [address] David Workman MD 800 [place] [address] 05/19/2025 1:00 PM EST Office Visit Physical Medicine & Rehabilitation Clinic at [facility] [address] [place] [address] Leslie Suarez DO [address] [place] [address] 09/30/2025 10:10 AM EDT Appointment [facility] Radiology [address] [place] [address] 09/30/2025 11:30 AM EDT Office Visit [facility] Neck [facility] Respiratory [address], 2nd [place] [address] Aysha Crews MD [address] [place] [address] documented as of this encounter [...] on filedocumented in this encounter Care Teams Fast Food Sales Assistant Relationship Specialty Start Date End Date Delmer Fritz MD 430 [facility] [address] [place] [address] PCP - General 10/02/20 12/13/20 Antwan Esparza MD 9 [place] [address] PCP - General 12/14/20 02/18/24 Inna Serrano APRN [address]0 [place] [address] PCP - General 02/19/24 Ángela Millard APRN [address] [place] [address] Nurse Practitioner Neurosurgery 09/17/21 documented as of this encounter
--- OUTSIDE RECORDS SUMMARY | 2025-04-02 12:39 | XMS_ITS | Encounter Summary ---
Author Organization Healthcare Address [address] [place] [address] Care Team Providers Care Tellers Supervisor Name Role Phone Ángela Millard ACCREDITED LEGAL SECRETARY Unavailable [phone] Inna Serrano ACCREDITED LEGAL SECRETARY Primary Care Provider [phone] Encounter Details Date Type Department Care Team (Late st Contact Info) Description 02/21/2025 Telephone [facility] Neck [facility] Respiratory [address], 2nd [place] [address] Aysha Crews MD [address] [place] [address] Social History Tobacco Use Types [...] 02/21/2025 10:19 AM EDT Per call to [facility], pt wanted to inform clinical team that pt was seen at [facility] in [facility] 02/17 and they placed a [address] scheduled for next year. [phone], documented in this encounter Plan of Treatment Upcoming Encounters Date Type Department Care Team (Late st Contact Info) Description 04/08/2025 12:00 PM EST Office Visit [facility] Nephrology, Bone & Mineral Metabolism [address] [facility], [address] [place] [address] David Workman MD 800 [place] [address] 05/19/2025 1:00 PM EST Office Visit [facility] [address] [place] [address] Leslie Suarez DO [address] [place] [address] 09/30/2025 10:10 AM EDT Appointment [facility] Radiology [address] [place] [address] 09/30/2025 11:30 AM EDT Office Visit [facility] Head[facility] Neck & Respiratory [address] [facility], 2nd [place] [address] Aysha Crews MD [address] [facility] [address] [place] [address] documented as of this encounter Visit Diagnoses Not on filedocumented in this encounter Additional Health Concerns Assessment Noted Time A fall risk assessment has been complete d for the patient 02/20/2025 2:45 PM EDT A Body Mass Index follow-up plan has been documented for the patient 02/20/2025 3:10 PM EDT documented as of this encounter Care Teams Tellers Supervisor Relationship Specialty Start Date End Date Inna Serrano APRN [address]0 [place] [address] PCP - General 02/19/24 Ángela Millard APRN [address] [facility] [address] [place] [address] Nurse Practitioner Neurosurgery 09/17/21 documented as of this encounter
--- OUTSIDE RECORDS SUMMARY | 2025-04-02 12:39 | XMS_ITS | Encounter Summary ---
Author Organization [facility] Address [address] [place] [address] Care Team Providers Care Hydroelectric Production Technician Name Role Phone Antwan Esparza MD Primary Care Provider [phone] Ángela Millard THREADING MACHINE OPERATOR Unavailable [phone] Inna Serrano APRN Primary Care Provider [phone] Encounter Details Date Type Department Care Team ([facility] Contact Info) Description 07/19/2023 Orders Only External Location 800 [place] [address] Andrew Borja, DO [address] [place] [address] [place], [place] [id number] Social History Tobacco Use Types Packs/Day Years [...] Department Care Team ([facility] Contact Info) Description 04/08/2025 12:00 PM EST Office Visit [facility] Nephrology, Bone & Mineral Metabolism [address] [facility], [address] [place] [address] David Workman MD [address] [place] [address] 05/19/2025 1:00 PM EST Office Visit [facility] at [facility] [address] [place] [address] Leslie Suarez DO [address] [place] [address] 09/30/2025 10:10 AM EDT Appointment [facility] Radiology [address] [place] [address] 09/30/2025 11:30 AM EDT Office Visit [facility] Head[facility] Neck & Respiratory [address] 2nd [place] [address] Aysha Crews MD [address] [facility] [address] [place] [address] documented as of this encounter [...] as of this encounter Care Teams Hydroelectric Production Technician Relationship Specialty Start Date End Date Antwan Esparza MD [address] [place] [address] PCP - General 12/14/20 02/18/24 Inna Serrano APRN [address]0 [place] [address] PCP - General 02/19/24 Ángela Millard APRN [address] [place] [address] Nurse Practitioner Neurosurgery 09/17/21 documented as of this encounter
--- OUTSIDE RECORDS SUMMARY | 2025-04-02 12:39 | XMS_ITS | Encounter Summary ---
Author Organization [facility] Address [address] [place] [address] Care Team Providers Care Pipe Fitter Fire Sprinkler Systems Name Role Phone Antwan Esparza MD Primary Care Provider + [phone] Ángela Millard SUPERVISOR PIG MACHINE Unavailable [phone] Inna Serrano SUPERVISOR PIG MACHINE Primary Care Provider [phone] Reason for Visit * Reason Onset Date Comments HCN - Rx Refill Request 12/27/2021 Encounter Details Date Type Department Care Team (Late st Contact Info) Description 12/27/2021 Telephone [facility] at [facility] [address] [place] [address] Leslie Suarez DO [address] [facility] [address] [place] [address] HCN - Rx Refill Request [...] Hydrocodone and diclofenac Preferred Pharmacy & Location: [facility] Days of medication remaining (if under 3 days please aishwarya as urgent): 5 Best contact number and optimal time of day to reach caller: [phone] Additional comments/information from caller: Note: Please do not reply to this message. Follow-up communication and further actions as a result of this message need to be communicated with the patient directly, if the patient is not active onMyChart. If the patient is active on MyChart, they will receive notification of the communication/outcome via [employer]. documented in this encounter Plan of Treatment Upcoming Encounters Date Type Department Care Team ([facility] st Contact Info) Description 04/08/2025 12:00 PM EST Office Visit [facility] Nephrology, Bone & Mineral Metabolism [address] [facility], [address] [place] [address] David Workman MD 800 [place] [address] 05/19/2025 1:00 PM EST Office Visit [facility] [address] [place] [address] Leslie Suarez, [address] [place] [address] 09/30/2025 10:10 AM EDT Appointment [facility] Radiology [address] [place] [address] 09/30/2025 11:30 AM EDT Office Visit [facility] Head[facility] Neck & Respiratory [address] [facility], 2nd [place] [address] Aysha Crews MD [address] [facility] [address] [place] [address] documented as of this encounter Visit Diagnoses Diagnosis Chronic low back pain, unspecified back pain laterality, unspecified whether sciatica present documented in this encounter Additional Health Concerns Assessment Noted Time A fall risk assessment has been complete d for the patient 11/01/2021 9:34 AM EDT documented as of this encounter Care Teams Pipe Fitter Fire Sprinkler Systems Relationship Specialty Start Date End Date Antwan Esparza MD 9 [place] [address] PCP - General 12/14/20 02/18/24 Inna Serrano APRN 1140 [place] [address] PCP - General 02/19/24 Ángela Millard APRN [address] [place] [address] Nurse Practitioner Neurosurgery 09/17/21 documented as of this encounter
--- OUTSIDE RECORDS SUMMARY | 2025-04-02 12:39 | XMS_ITS | Encounter Summary ---
Author Organization Healthcare Address [address] [place] [address] Care Team Providers Care Kosher Inspector Name Role Phone Ángela Millard MUNICIPAL SERVICES MANAGER Unavailable [phone] Inna Serrano APRN Primary Care Provider [phone] Encounter Details Date Type Department Care Team [...] 04/08/2025 12:00 PM EST Office Visit Professional [facility] Nephrology, Bone & Mineral Metabolism [address] [facility], [address] [place] [address] David Workman MD [address] [place] [address] 05/19/2025 1:00 PM EST Office Visit Physical Medicine & Rehabilitation Clinic at [facility] [address] [place] [address] Leslie Suarez DO [address] [place] [address] 09/30/2025 10:10 AM EDT Appointment [facility] Radiology [address] [place] [address] 09/30/2025 11:30 AM EDT Office Visit [facility] Head[facility] Neck & Respiratory [address] , 2nd [place] [address] Aysha Crews MD [address] [place] [address] documented as of this encounter Visit Diagnoses Not on filedocumented in this encounter Additional Health Concerns Assessment Noted Time A fall risk assessment has been complete d for the patient 01/08/2025 1:58 PM EDT A Body Mass Index follow-up plan has been documented for the patient 01/08/2025 3:33 PM EDT documented as of this encounter Care Teams Kosher Inspector Relationship Specialty Start Date End Date Inna Serrano APRN [address] [place] [address] PCP - General 02/19/24 Ángela Millard APRN [address] [place] [address] Nurse Practitioner Neurosurgery 09/17/21 documented as of this encounter
--- OUTSIDE RECORDS SUMMARY | 2025-04-02 12:39 | XMS_ITS | Encounter Summary ---
Author Organization [facility] Address [address] [place] [address] Care Team Providers Care Dental Chair Assembler Name Role Phone Ángela Millard TECHNICAL MANAGER Unavailable [phone] Inna Serrano APRN Primary Care Provider [phone] Encounter Details Date Type Department Care Team [...] 2:45 PM EDT Toothaker, Arben ry M, ORGANIC PREPARATION ANALYST * Calculated C-SSRS Risk Score (Lifetime/Recent) Answer [...] 04/08/2025 12:00 PM EST Office Visit Professional [facility] Nephrology, Bone & Mineral Metabolism [address] [facility], [address] [place] [address] David Workman MD [address] [place] [address] 05/19/2025 1:00 PM EST Office Visit Physical Medicine [facility] Rehabilitation Clinic at [facility] [address] [place] [address] Leslie Suarez DO [address] [facility] [address] [place] [address] 09/30/2025 10:10 AM EDT Appointment [facility] G Radiology [address] [place] [address] 09/30/2025 11:30 AM EDT Office Visit [facility] Head[facility] Neck & Respiratory [address] [facility], 2nd [place] [address] Aysha Crews MD [address] [place] [address] documented as of this encounter Visit Diagnoses Not on filedocumented in this encounter Additional Health Concerns Assessment Noted Time A fall risk assessment has been complete d for the patient 02/20/2025 2:45 PM EDT A Body Mass Index follow-up plan has been documented for the patient 02/20/2025 3:10 PM EDT documented as of this encounter Care Teams Dental Chair Assembler Relationship Specialty Start Date End Date Inna Serrano, TECHNICAL MANAGER [address] [place] [address] PCP - General 02/19/24 Ágnela Millard, TECHNICAL MANAGER [address] [place] [address] Nurse Practitioner Neurosurgery 09/17/21 documented as of this encounter
--- OUTSIDE RECORDS SUMMARY | 2025-04-02 12:39 | XMS_ITS | Encounter Summary ---
Author Organization Healthcare Address [address] [place] [address] Care Team Providers Care Paste Mixing Supervisor Name Role Phone Ángela Millard CREATIVE SERVICES DIRECTOR Unavailable [phone] Inna Serrano CREATIVE SERVICES DIRECTOR Primary Care Provider [phone] Encounter Details Date Type Department Care Team (Late Contact Info) Description 08/08/2024 Orders Only External Location [address] [place] [address] Provider, External Social History Tobacco Use Types [...] PM EST Office Visit Professional [facility] Nephrology, Bone & Mineral Metabolism [address] [facility], [address] [place] [address] David Workman MD [address] [place] [address] 05/19/2025 1:00 PM EST Office Visit [facility] at [facility] [address] [place] [address] Leslie Suarez DO [address] [place] [address] 09/30/2025 10:10 AM EDT Appointment [facility] Radiology [address] [place] [address] 09/30/2025 11:30 AM EDT Office Visit [facility] Head[facility] Neck & Respiratory [address], 2nd [place] [address] Aysha Crews MD [address] [place] [address] documented as of this encounter [...] documented as of this encounter Care Teams Paste Mixing Supervisor Relationship Specialty Start Date End Date Inna Serrano APRN [address] [place] [address] PCP - General 02/19/24 Ángela Millard APRN [address] [place] [address] Nurse Practitioner Neurosurgery 09/17/21 documented as of this encounter
--- OUTSIDE RECORDS SUMMARY | 2025-04-02 12:39 | XMS_ITS | Encounter Summary ---
Author Organization [facility] Address [address] [place] [address] Care Team Providers Care Refrigeration Service Inspector Name Role Phone Antwan Esparza MD Primary Care Provider [phone] Ángela Millard GROUNDS WORKER Unavailable [phone] Inna Serrano APRN Primary Care Provider [phone] Encounter Details Date Type Department Care Team ([facility] Contact Info) Description 06/23/2023 Orders Only External Location [address] [place] [address] Andrew Borja, DO [address] [place] [address] [place], [place] [id number] Social History Tobacco Use Types Packs/Day Years [...] Upcoming Encounters Date Type Department Care Team ([facility] Contact Info) Description 04/08/2025 12:00 PM EST Office Visit Professional [facility] Nephrology, Bone & Mineral Metabolism [address] [facility], [address] [place] [address] David Workman MD [address] [place] [address] 05/19/2025 1:00 PM EST Office Visit [facility] at [facility] [address] [place] [address] Leslie Suarez DO [address] [place] [address] 09/30/2025 10:10 AM EDT Appointment [facility] Radiology [address] [place] [address] 09/30/2025 11:30 AM EDT Office Visit [facility] Head[facility] Neck & Respiratory [address] , 2nd [place] [address] Aysha Crews MD [address] [facility] [address] [place] [address] documented as of this encounter [...] documented as of this encounter Care Teams Refrigeration Service Inspector Relationship Specialty Start Date End Date Antwan Esparza MD [address] [place] [address] PCP - General 12/14/20 02/18/24 Inna Serrano APRN [address] [place] [address] PCP - General 02/19/24 Ángela Millard APRN [address] [place] [address] Nurse Practitioner Neurosurgery 09/17/21 documented as of this encounter
--- OUTSIDE RECORDS SUMMARY | 2025-04-02 12:39 | XMS_ITS | Encounter Summary ---
Author Organization Healthcare Address [address] [place] [address] Care Team Providers Care [place] Program Coordinator Name Role Phone Antwan Esparza MD Primary Care Provider [phone] Ángela Millard SENIOR USER EXPERIENCE ARCHITECT Unavailable [phone] Inna Serrano SENIOR USER EXPERIENCE ARCHITECT Primary Care Provider [phone] Reason for Visit * Reason Onset Date Comments HCN - Rx Refill Request 04/11/2022 Encounter Details Date Type Department Care Team (Late st Contact Info) Description 04/11/2022 Refill [facility] at [facility] [address] [place] [address] Leslie Suarez DO [address] [facility] [address] [place] [address] Chronic low back pain, unspecified [...] Dosage: Hydrocodone-acetaminophen 5-325MG Pref[facility] Pharmacy & Location: [facility] Days of medication remaining (if under 3 days please aishwarya as urgent): 7 days Best contact number and optimal time of day to reach caller: [phone] Additional comments/information from caller: Note: Please do not reply to this message. Follow-up communication and further actions as a result of this message need to be communicated with the patient directly, if the patient is not active onMyChart. If the patient is active on MyChart, they will receive notification of the communication/outcome via [employer]. documented in this encounter Plan of Treatment Upcoming Encounters Date Type Department Care Team (Late st Contact Info) Description 04/08/2025 12:00 PM EST Office Visit [facility] Nephrology, Bone & Mineral Metabolism [address] [facility], [address] [place] [address] David Workman MD [address] [place] [address] 05/19/2025 1:00 PM EST Office Visit [facility] at [facility] [address] [place] [address] Leslie Suarez DO [address] [facility] [address] [place] [address] 09/30/2025 10:10 AM EDT Appointment [facility] G Radiology [address] [place] [address] 09/30/2025 11:30 AM EDT Office Visit [facility] Head[facility] Neck & Respiratory [address] [facility], 2nd [place] [address] Aysha Crews MD [address] [facility] [address] [place] [address] documented as of this encounter Visit Diagnoses Diagnosis Chronic low back pain, unspecified back pain laterality, unspecified whether sciatica present- Primary documented in this encounter Additional Health Concerns Assessment Noted Time A fall risk assessment has been complete d for the patient 01/31/2022 1:51 PM EDT documented as of this encounter Care Teams [place] Program Coordinator Relationship Specialty Start Date End Date Antwan Esparza MD [address] [place], [place] [id number] PCP - General 12/14/20 02/18/24 Inna Serrano APRN [facility] [place] [address] PCP - General 02/19/24 Ángela Millard APRN [address] [place] [address] Nurse Practitioner Neurosurgery 09/17/21 documented as of this encounter
--- OUTSIDE RECORDS SUMMARY | 2025-04-02 12:39 | XMS_ITS | Encounter Summary ---
Author Organization [facility] Address [address] [place] [address] Care Team Providers Care Metal Mockup Maker Name Role Phone Ángela Millard JANITOR Unavailable [phone] Inna Serrano APRN Primary Care Provider [phone] Encounter Details Date Type Department Care Team ([facility] st Contact Info) Description 03/05/2025 Telephone [facility] Nephrology, Bone & Mineral Metabolism [address] [facility], [address] [place] [address] David Workman MD [address] [place] [address] Social History Tobacco Use Types [...] on his legs and neck on03/14/25 at [facility]. Best contact number: [phone] (home) Optimal time of day to reach [...] Upcoming Encounters Date Type Department Care Team ([facility] Contact Info) Description 04/08/2025 12:00 PM EST Office Visit Professional [facility] Nephrology, Bone & Mineral Metabolism [address] [facility], [address] [place] [address] David Workman MD [address] [place] [address] 05/19/2025 1:00 PM EST Office Visit [facility] [address] [place] [address] Leslie Suarez, [address] [place] [address] 09/30/2025 10:10 AM EDT Appointment [facility] G Radiology [address] [place] [address] 09/30/2025 11:30 AM EDT Office Visit [facility] Head[facility] Neck & Respiratory [address] [facility], 2nd [place] [address] Aysha Crews MD [address] [facility] [address] [place] [address] documented as of this encounter Visit Diagnoses Not on filedocumented in this encounter Additional Health Concerns Assessment Noted Time A fall risk assessment has been complete d for the patient 02/20/2025 2:45 PM EDT A Body Mass Index follow-up plan has been documented for the patient 02/20/2025 3:10 PM EDT documented as of this encounter Care Teams Metal Mockup Maker Relationship Specialty Start Date End Date Inna Serrano APRN [address] [place] [address] PCP - General 02/19/24 Ángela Millard APRN [address] [place] [address] Nurse Practitioner Neurosurgery 09/17/21 documented as of this encounter
--- OUTSIDE RECORDS SUMMARY | 2025-04-02 12:39 | XMS_ITS | Encounter Summary ---
Author Organization [facility] Address [address] [place] [address] Care Team Providers Care Chief Informatics Officer Name Role Phone Ángela Millard PUBLIC RELATIONS SALES MARKETING Unavailable Inna Serrano APRN Primary Care Provider [phone] Reason for Visit * Reason Onset Date Comments HCN Clinical Concern/Question 02/18/2025 Encounter Details Date Type Department Care Team ([facility] st Contact Info) Description 02/18/2025 Telephone [facility] Nephrology, Bone & Mineral Metabolism [address] [facility], [address] [place] [address] David Workman MD [address] [place] [address] HCN Clinical Concern/Question Social History [...] Pharmacist Nephrology, Bone & Mineral Metabolism Clinic [facility] [place] [address] * Telephone Encounter - Cecilia Hernandez S - 02/20/2025 11:33 AM EDT Patient Phone Message Reason for Call: Pt is asking Mandie to call him back to discuss his medication more Best contact number and optimal time of day to reach caller: [phone] Note: Please do not reply to this message. Follow-up communication and further actions as a result of this message need to be communicated with the patient directly, if the patient is not active onMyChart. If the patient is active on MyChart, they will receive notification of the communication/outcome via [employer]. * Telephone Encounter - Mandie Olsen PharmD [...] be on both. Advised patient to alert set up and lay out inspector that he has been taking Nifedipine 90mg daily and discuss if cardiology wishes for him to be on Nifedipine vs Amlodipine. Patient also voiced set up and lay out inspector informed him swelling LE is due to his kidneys and not his heart. Will alert Dr. Workman and PharmD will follow up with patient in a couple weeks to reassess BP. Mandie Olsen PharmD, BCACP Clinical Pharmacist Nephrology, Bone & Mineral Metabolism Clinic [place] [address] * Telephone Encounter - Claudia Griffin - 02/18/2025 11:06 AM EDT Patient Phone Message Reason for Call: Pt wants to inform Dr. Workman that he had stents placed in his heart, had labs completed at [facility], and was placed on a lifelong medication. Best contact number and optimal time of day to reach caller: [phone] Note: Please do not reply to this [...] Description 04/08/2025 12:00 PM EST Office Visit [facility] Nephrology, Bone & Mineral Metabolism [address] [facility], [address] [place] [address] David Workman MD [address] [place] [address] 05/19/2025 1:00 PM EST Office Visit [facility] Rehabilitation Clinic at [facility] [address] [place] [address] Leslie Suarez DO [address] [place] [address] 09/30/2025 10:10 AM EDT Appointment [facility] G Radiology [address] [place] [address] 09/30/2025 11:30 AM EDT Office Visit [facility] Head, Neck & Respiratory [address] [facility], 2nd [place] [address] Aysha Crews MD [address] [facility] [address] [place] [address] documented as of this encounter Visit Diagnoses Not on filedocumented in this encounter Additional Health Concerns Assessment Noted Time A fall risk assessment has been complete d for the patient 01/08/2025 1:58 PM EDT A Body Mass Index follow-up plan has been documented for the patient 01/08/2025 3:33 PM EDT documented as of this encounter Care Teams Chief Informatics Officer Relationship Specialty Start Date End Date Inna Serrano APRN [address] [place] [address] PCP - General 02/19/24 Ángela Millard APRN [address] [place] [address] Nurse Practitioner Neurosurgery 09/17/21 documented as of this encounter
--- OUTSIDE RECORDS SUMMARY | 2025-04-02 12:39 | XMS_ITS | Encounter Summary ---
Author Organization Healthcare Address [address] [place] [address] Care Team Providers Care Senior Packaging Engineer Name Role Phone Ángela Millard MANAGER IMAGE Unavailable [phone] Inna Serrano MANAGER IMAGE Primary Care Provider [phone] Reason for Visit * Reason Onset Date Comments HCN Status Update Call #1 03/05/2025 Encounter Details Date Type Department Care Team (Late st Contact Info) Description 03/05/2025 Telephone Physical [facility] Rehabilitation [facility] at [facility] [address] [facility] [place] [address] Leslie Suarez DO [address] [facility] [address] [place] [address] HCN Status Update Call #1 [...] Telephone Encounter - Leslie Suarez DO - 03/17/2025 11:19 AM EDT Noted and thanks for the message. * Telephone Encounter - Martha Castro - 03/17/2025 10:35 AM EDT Status Update Call #1 1st call regarding the status of the initial request. Best contact number: [phone] (mobile) Optimal time of day to reach caller: ANYTIME Additional comments/information from caller: He just wanted report the US results were he does haveCAD in both legs and his neck at 42%. Please advise. Note: Please do not reply to this message. Follow-up communication and further actions as a result of this message need to be communicated with the patient directly, if the patient is not active onMyChart. If the patient is active on MyChart, they will receive notification of the communication/outcome via [employer]. * Telephone Encounter - Leslie Suarez DO [...] need a call back. Best contact number: [phone] (mobile) Optimal time of day to reach [...] Description 04/08/2025 12:00 PM EST Office Visit [facility] Nephrology, Bone & Mineral Metabolism [address] [facility], [address] [place] [address] David Workman MD [address] [place] [address] 05/19/2025 1:00 PM EST Office Visit [facility] [address] [place] [address] Leslie Suarez DO [address] [facility] [address] [place] [address] 09/30/2025 10:10 AM EDT Appointment [facility] G Radiology [address] [place] [address] 09/30/2025 11:30 AM EDT Office Visit [facility] [address] [facility] 2nd [place] [address] Aysha Crews MD [address] [facility] [address] [place] [address] documented as of this encounter Visit Diagnoses Not on filedocumented in this encounter Additional Health Concerns Assessment Noted Time A fall risk assessment has been complete d for the patient 02/20/2025 2:45 PM EDT A Body Mass Index follow-up plan has been documented for the patient 02/20/2025 3:10 PM EDT documented as of this encounter Care Teams Senior Packaging Engineer Relationship Specialty Start Date End Date Inna Serrano APRN [address] [place] [address] PCP - General 02/19/24 Ángela Millard APRN [address] [facility] [place] [address] Nurse Practitioner Neurosurgery 09/17/21 documented as of this encounter
--- OUTSIDE RECORDS SUMMARY | 2025-04-02 12:39 | XMS_ITS | Encounter Summary ---
Author Organization Healthcare Address [address] [place] [address] Care Team Providers Care Doll Eye Setter Name Role Phone Ángela Millard SENIOR INSTRUMENTATION ENGINEER Unavailable [phone] Inna Serrano SENIOR INSTRUMENTATION ENGINEER Primary Care Provider [phone] Encounter Details Date Type Department Care Team (Late Contact Info) Description 09/02/2024 Orders Only External Location [address] [place] [address] Provider, External Social History Tobacco Use Types [...] Bone & Mineral Metabolism [address] [facility], [address] [place] [address] David Workman MD [address] [place] [address] 05/19/2025 1:00 PM EST Office Visit [facility] [address] [place] [address] Leslie Suarez DO [address] [place] [address] 09/30/2025 10:10 AM EDT Appointment [facility] Radiology [address] [place] [address] 09/30/2025 11:30 AM EDT Office Visit [facility] [address], 2nd [place] [address] Aysha Crews MD [address] [place] [address] documented as of this encounter [...] documented as of this encounter Care Teams Doll Eye Setter Relationship Specialty Start Date End Date Inna Serrano APRN [address] [place] [address] PCP - General 02/19/24 Ángela Millard APRN [address] [place] [address] Nurse Practitioner Neurosurgery 09/17/21 documented as of this encounter
--- OUTSIDE RECORDS SUMMARY | 2025-04-02 12:39 | XMS_ITS | Encounter Summary ---
Author Organization Healthcare Address [address] [place] [address] Care Team Providers Care Process Controller Name Role Phone Antwan Esparza MD Primary Care Provider + [phone] Ángela Millard TECHNOLOGIST INFECTIOUS DISEASE Unavailable [phone] Inna Serrano TECHNOLOGIST INFECTIOUS DISEASE Primary Care Provider [phone] Encounter Details Date Type Department Care Team ([facility] Contact Info) Description 09/15/2023 Orders Only External Location [address] [place] [address] Idalia Torres, TECHNOLOGIST INFECTIOUS DISEASE [address] [place] [address] [place] [address] Social History Tobacco Use Types [...] Department Care Team ([facility] Contact Info) Description 04/08/2025 12:00 PM EST Office Visit [facility] Nephrology, Bone & Mineral Metabolism [address] [facility], [address] [place] [address] David Workman MD [address] [place] [address] 05/19/2025 1:00 PM EST Office Visit [facility] [address] [place] [address] Leslie Suarez DO [address] [place] [address] 09/30/2025 10:10 AM EDT Appointment [facility] [address] [place] [address] 09/30/2025 11:30 AM EDT Office Visit [facility] [address] 2[address] [place] [phone] Aysha Crews MD [address] [facility] [address] [place] [phone] documented as of this encounter Procedures Procedure [...] documented as of this encounter Care Teams Process Controller Relationship Specialty Start Date End Date Antwan Esparza MD [address] [place] [address] PCP - General 12/14/20 02/18/24 Inna Serrano APRN [address] [place] [address] PCP - General 02/19/24 Ángela Millard APRN [address] [place] [address] Nurse Practitioner Neurosurgery 09/17/21 documented as of this encounter
--- OUTSIDE RECORDS SUMMARY | 2025-04-02 12:39 | XMS_ITS | Encounter Summary ---
Author Organization Healthcare Address [address] [place] [id number] Care Team Providers Care Pulmonary Care Nurse Name Role Phone Antwan Esparza MD Primary Care Provider + [phone] Ángela Millard WASTEWATER TREATMENT ENGINEER Unavailable [phone] Inna Serrano WASTEWATER TREATMENT ENGINEER Primary Care Provider + [phone] Reason for Visit * Reason Onset Date Comments [facility] - Rx Refill Request 05/30/2022 Encounter Details Date Type Department Care Team (Late st Contact Info) Description 05/30/2022 Refill PFE SCHEDULING [address] [place] [address] Leslie Suarez DO [address] [facility] [address] [place] [address] Chronic low back pain, unspecified back pain [...] needed for pain Preferred Pharmacy & Location: [facility] [phone] Days of medication remaining (if under 3 days please aishwarya as urgent): 0 Best contact number and optimal time of day to reach caller: [phone] Additional comments/information from caller: Note: Please do not reply to this message. Follow-up communication and further actions as a result of this message need to be communicated with the patient directly, if the patient is not active onMyChart. If the patient is active on MyChart, they will receive notification of the communication/outcome via Clone. documented in this encounter Plan of Treatment Upcoming Encounters Date Type Department Care Team (Late st Contact Info) Description 04/08/2025 12:00 PM EST Office Visit [facility] [employer] [place] Nephrology, Bone & Mineral Metabolism [address] [facility], [address] [place] [address] David Workman MD [address] [place] [address] 05/19/2025 1:00 PM EST Office Visit [facility] at [facility] [address] [place] [address] Leslie Suarez DO [address] [place] [address] 09/30/2025 10:10 AM EDT Appointment [facility] Radiology [address] [place] [address] 09/30/2025 11:30 AM EDT Office Visit [facility] [address] [facility] 2nd [place] [address] Aysha Crews MD [address] [facility] [address] [place] [address] documented as of this encounter Visit Diagnoses Diagnosis Chronic low back pain, unspecified back pain laterality, unspecified whether sciatica present documented in this encounter Additional Health Concerns Assessment Noted Time A fall risk assessment has been complete d for the patient 04/25/2022 1:12 PM EST documented as of this encounter Care Teams Pulmonary Care Nurse Relationship Specialty Start Date End Date Antwan Esparza MD [address] [place] [address] PCP - General 12/14/20 02/18/24 Inna Serrano APRN [facility] [place] [address] PCP - General 02/19/24 Ángela Millard APRN [address] [place] [address] Nurse Practitioner Neurosurgery 09/17/21 documented as of this encounter
--- OUTSIDE RECORDS SUMMARY | 2025-04-02 12:39 | XMS_ITS | Encounter Summary ---
Author Organization Healthcare Address [address] [place] [address] Care Team Providers Care Platform Beater Name Role Phone Ángela Millard PARACHUTE INSPECTOR Unavailable Inna Serrano APRN Primary Care Provider [phone] Reason for Visit * Reason Onset Date Comments Med Refill 03/11/2025 Encounter Details Date Type Department Care Team (Late st Contact Info) Description 03/11/2025 Refill [facility] [address] [place] [address] Leslie Suarez DO [address] [facility] [address] [place] [address] Social History Tobacco Use Types [...] [address] [facility], [address] [place] [address] David Workman MD [address] [place] [address] 05/19/2025 1:00 PM EST Office Visit [facility] [address] [place] [address] Leslie Suarez DO [address] [place] [address] 09/30/2025 10:10 AM EDT Appointment [facility] Radiology [address] [place] [address] 09/30/2025 11:30 AM EDT Office Visit [facility] Res[facility] [address] [facility], 2nd [place] [address] Aysha Crews MD [address] [place] [address] documented as of this encounter Visit Diagnoses Not on filedocumented in this encounter Additional Health Concerns Assessment Noted Time A fall risk assessment has been complete d for the patient 02/20/2025 2:45 PM EDT A Body Mass Index follow-up plan has been documented for the patient 02/20/2025 3:10 PM EDT documented as of this encounter Care Teams Platform Beater Relationship Specialty Start Date End Date Inna Serrano APRN [address] [place], [place] [id number] PCP - General 02/19/24 Ángela Millard APRN [address] [place] [address] Nurse Practitioner Neurosurgery 09/17/21 documented as of this encounter
--- OUTSIDE RECORDS SUMMARY | 2025-04-02 12:39 | XMS_ITS | Clinical Summary ---
Author Organization [facility] Address [address] [place] [address] Care Team Providers Care Emts Name Role Phone Ángela Millard FISHING HAND Unavailable [phone] Inna Serrano FISHING HAND Primary Care Provider [phone] Allergies Active Allergy Reactions Criticality Noted Date [...] mouth twice a day. Active HYDROcodone-nelida taminophen (Pierson) 5-325 MG tablet Take 1 tablet by mouth every 6 hours as needed for severe pain. 120 tablet 5 Active HYDROcodone-nelida taminophen (Pierson) 5-325 MG tablet Take 1 tablet by [...] Encounters Date Type Department Care Team Description 03/28/2025 Telephone [facility] [address] [facility], [address] [place] [address] Petra Loya 03/17/2025 Telephone [facility] Nephrology, Bone & Mineral Metabolism [address] [facility], [address] [place] [address] David Workman MD HCN Clinical Concern/Question 03/11/2025 Refill [facility] [address] [place] [address] Leslie Suarez DO 03/05/2025 Telephone [facility] Nephrology, Bone & Mineral Metabolism [address] [facility], [address] [place] [address] David Workman MD 03/05/2025 Telephone [facility] [address] [place] [address] Leslie Suarez, HCN Status Update Call #1 02/21/2025 Telephone [facility] [address] [place] [address] Aysha Crews MD 02/20/2025 2:30 PM EDT Office Visit [facility] [address] [place] [address] Leslie Suarez, Chronic bilateral low back pain without sciatica (Primary Dx) 02/20/2025 Travel 02/18/2025 Telephone [facility] Nephrology, Bone & Mineral Metabolism [address] [facility], [address] [place] [address] David Workman MD HCN Clinical Concern/Question 02/15/2025 Travel 02/11/2025 [facility] Nephrology, Bone & Mineral Metabolism [address] [facility], [address] [place] [address] Mandie Olsen, PharmD 02/10/2025 Refill [facility] [address] [place] [address] Dee Dee Jenkins MD 02/05/2025 Telephone [facility] [address] [place] [address] Leslie Suarez DO HCN Status Update Call #1 02/03/2025 Telephone [facility] [address]nd [place] [address] Aysha Crews MD 02/03/2025 Telephone [facility] [address] [place] [address] Leslie Suarez, HCN - Patient Message 02/03/2025 Telephone [facility] [address], [address] [place] [address] David Workman MD HCN - Patient Message 01/27/2025 Telephone [facility] [address], [address] [place] [address] David Workman MD 01/24/2025 Telephone [facility] [address], [address] [place] [address] David Workman MD 01/22/2025 Telephone [facility] [address], [address] [place] [address] David Workman MD HCN Clinical Concern/Question 01/21/2025 Telephone [facility] [address] [place] [address] Leslie Suarez DO HCN - Patient Message 01/15/2025 Telephone [facility] [address] [place] [address] Leslie Suarez DO HCN - Patient Message 01/14/2025 Telephone [facility] Nephrology, Bone & Mineral Metabolism [address], [address] [place] [address] David Workman MD HCN - Patient Message 01/09/2025 Telephone [facility] [address], [address] [place] [address] David Workman MD HCN - Patient Message 01/08/2025 2:00 PM EDT [facility] [address] [facility], [address] [place] [address] David Workman MD CKD stage 3a, GFR 45-59 ml/min (CMS/HCC) (Primary Dx) 01/08/2025 Telephone [facility] [address] [place] [address] Leslie Suarez DO HCN Status Update Call #2 01/08/2025 Travel 01/01/2025 Travel from Last 3 Months Immunizations Immunization [...] 04/08/2025 12:00 PM EST Office Visit [facility] [address] [facility], [address] [place] [id number] David Workman MD [address] [place] [id number] 05/19/2025 1:00 PM EST Office Visit [facility] [address] [place] [address] Leslie Suarez DO [address] [place] [address] 09/30/2025 10:10 AM EDT Appointment [facility] [address] [place] [address] 09/30/2025 11:30 AM EDT Office Visit [facility] [address] [facility], 2nd [place] [address] Aysha Crews MD [address] [place] [address] Health Maintenance Due Date Last Done Comments [...] PPSV23, PCV20, or PCV21) 04/01/2024 02/05/2024, 05/23/2018 [id number] Vaccine (1 - season) 2025 [facility]-Influenza Vaccine [...] 45-59 ml/min (CMS/HCC) ALBUMIN, URINE, RANDOM Routine 08/20/202 5 3:40 PM EDT CKD stage 3a, GFR 45-59 ml/min (CMS/HCC) PROTEIN, URINE, RANDOM WITH CREATININE Routine 01/08/2025 3:40 PM EDT CKD stage 3a, GFR 45-59 ml/min (CMS/HCC) PAIN MANAGEMENT, QUANTITATIVE URINE DRUG TESTING Routine 01/08/2025 1:38 PM EDT High risk medication use PAIN MANAGEMENT, QUANTITATIVE URINE DRUG TESTING Routine 01/08/2025 1:38 PM EDT High risk medication use from Last 3 Months Results * [place] Lambda Quant Free Light Chains w/Ratio (01/08/2025 3:44 PM EDT) [place] Lambda Free Light Chain Ratio 0.98 0.26 - 1.65 Ratio 01/09/2025 9:12 AM EDT [facility] [place] Quant Free Light Chains 18.92 3.30 - 19.40 mg/L 01/09/2025 9:12 AM EDT [facility] Lambda Quant Free Light Chains 19.21 5.71 - 26.30 mg/L 01/09/2025 9:12 AM EDT [facility] Blood Venous blood specimen / Unknown Venipuncture / Unknown 01/08/2025 3:44 PM EDT 01/08/2025 3:44 PM EDT Narrative [facility] - 01/09/2025 9:12 AM EDT [...] with the testing laboratory. Test performed at [facility]. us David Workman MD LAB BLOOD ORDERABLES Final Resul t [facility] [address] [place] [address] * Total Protein, Serum (01/08/2025 3:44 PM EDT) Total Protein 6.9 6.2 - 7.7 g/dL 01/08/2025 5:58 PM EDT [facility] Blood Venous blood specimen / Unknown Venipuncture / Unknown 01/08/2025 3:44 PM EDT 01/08/2025 3:44 PM EDT us David Workman MD LAB BLOOD ORDERABLES Final Resul t [facility] [address] [place] [address] * Protein Electrophoresis, Serum (01/08/2025 3:44 PM EDT) Albumin Electrophoresis, Serum 4.1 3.6 - 4.7 g/dL 01/09/2025 2:51 AM EDT [facility] Alpha 1 Globulin Electrophoresis, Serum 0.4 0.2 - 0.4 g/dL 01/09/2025 2:51 AM EDT [facility] Alpha 2 Globulin Electrophoresis, Serum 0.8 0.5 - 0.9 g/dL 01/09/2025 2:51 AM EDT [facility] Beta 1 Globulin Electrophoresis, Serum 0.4 0.3 - 0.5 g/dL 01/09/2025 2:51 AM EDT [facility] Beta 2 Globulin Electrophoresis, Serum 0.4 0.2 - 0.5 g/dL 01/09/2025 2:51 AM EDT [facility] Gamma Globulin Electrophoresis, Serum 0.9 0.6 - 1.5 g/dL 01/09/2025 2:51 AM EDT [facility] Interpretation, Serum Protein Electrophoresis Pathology report to follow. 01/09/2025 2:51 AM EDT [facility] Blood Venous blood specimen / Unknown Venipuncture / Unknown 01/08/2025 3:44 PM EDT 01/08/2025 3:44 PM EDT us David Workman MD LAB BLOOD ORDERABLES Final Resul t Performing Organization Address City/[facility]/ZIP Co de Phone Number [facility] [address] [place] [address] * Protein electrophoresis serum, pathologist interpretation (01/08/2025 3:44 PM EDT) Clinical Diagnosis, SPEP CKD stage 3a 01/09/2025 11:33 AM EDT [facility] Interpretation , SPEP There are no significant abnormalities in the protein electrophoretic pattern. A resident was involved in the service. I attest I examined the relevant preparations for the specimens and confirmed the diagnosis or interpretation. 01/09/2025 11:33 AM EDT [facility] Pathologist Signature, SPEP Reviewed by: Cory Valenzuela MD 01/09/2025 11:33 AM EDT [facility] CP ASR DISCLAIMER Yes 01/09/2025 11:33 AM EDT [facility] Blood Venous blood specimen / Unknown Venipuncture / Unknown 01/08/2025 3:44 PM EDT 01/08/2025 3:44 PM EDT David Workman MD LAB PATHOLOGY ORDERABLES Final R esult Performing Organization Address City/[facility]/ZIP Co de Phone Number [facility] [address] [place] [address] * Vitamin D 25 Hydroxy (01/08/2025 3:44 PM EDT) Vitamin D 25 Hydroxy 20.2 20.0 - 80.0 ng/mL 01/08/2025 8:13 PM EDT [facility] Blood Venous blood specimen / Unknown Venipuncture / Unknown 01/08/2025 3:44 PM EDT 01/08/2025 3:44 PM EDT Narrative [facility] - 01/08/2025 8:13 PM EDT Testing performed on [employer], standardized against NIST SRM 2972. When testing [...] MD LAB BLOOD ORDERABLES Final Resul t [facility] [address] [place] [address] * (ABNORMAL) CBC and Differential (01/08/2025 3:44 PM EDT) WBC Count 9.82 3.70 - 10.30 10*3/uL LAB HEMATOLOGY METHOD 01/08/2025 5:22 PM EDT [facility] RBC Count 5.41 4.60 - 6.10 10*6/uL LAB HEMATOLOGY METHOD 01/08/2025 5:22 PM EDT [facility] HGB 17.0 13.7 - 17.5 g/dL LAB HEMATOLOGY METHOD 01/08/2025 5:22 PM EDT [facility] HCT 49.6 40.0 - 51.0 % LAB HEMATOLOGY METHOD 01/08/2025 5:22 PM EDT [facility] Platelet Count 152(L) 155 - 369 10*3/uL LAB HEMATOLOGY METHOD 01/08/2025 5:22 PM EDT [facility] MCV 92 79 - 98 fL LAB HEMATOLOGY METHOD 01/08/2025 5:22 PM EDT [facility] MCH 31.4 26.0 - 32.0 pg LAB HEMATOLOGY METHOD 01/08/2025 5:22 PM EDT [facility] MCHC 34.3 30.7 - 35.5 g/dL LAB HEMATOLOGY METHOD 01/08/2025 5:22 PM EDT [facility] RDW 12.1 11.5 - 14.5 % LAB HEMATOLOGY METHOD 01/08/2025 5:22 PM EDT [facility] MPV 12.4 8.8 - 12.5 fL LAB HEMATOLOGY METHOD 01/08/2025 5:22 PM EDT [facility] nRBC 0.0 <=0.0 per 100 WBCs LAB HEMATOLOGY METHOD 01/08/2025 5:22 PM EDT [facility] Differential Type Automated LAB HEMATOLOGY METHOD 01/08/2025 5:22 PM EDT [facility] Neutrophils % 66 % LAB HEMATOLOGY METHOD 01/08/2025 5:22 PM EDT [facility] Lymphocytes % 24 % LAB HEMATOLOGY METHOD 01/08/2025 5:22 PM EDT [facility] Monocytes % 7 % LAB HEMATOLOGY METHOD 01/08/2025 5:22 PM EDT [facility] Eosinophils % 2 % LAB HEMATOLOGY METHOD 01/08/2025 5:22 PM EDT [facility] Basophils % 1 % LAB HEMATOLOGY METHOD 01/08/2025 5:22 PM EDT [facility] Immature Granulocytes % 0 % LAB HEMATOLOGY METHOD 01/08/2025 5:22 PM EDT [facility] Neutrophils Absolute 6.44(H) 1.60 - 6.10 10*3/uL LAB HEMATOLOGY METHOD 01/08/2025 5:22 PM EDT [facility] Lymphocytes Absolute 2.34 1.20 - 3.90 10*3/uL LAB HEMATOLOGY METHOD 01/08/2025 5:22 PM EDT [facility] Monocytes Absolute 0.66 0.30 - 0.90 10*3/uL LAB HEMATOLOGY METHOD 01/08/2025 5:22 PM EDT [facility] Eosinophils Absolute 0.24 0.00 - 0.50 10*3/uL LAB HEMATOLOGY METHOD 01/08/2025 5:22 PM EDT [facility] Basophils Absolute 0.10 0.00 - 0.10 10*3/uL LAB HEMATOLOGY METHOD 01/08/2025 5:22 PM EDT [facility] Immature Granulocytes Absolute 0.04 0.00 - 0.06 10*3/uL LAB HEMATOLOGY METHOD 01/08/2025 5:22 PM EDT [facility] Blood Venous blood specimen / Unknown Venipuncture / Unknown 01/08/2025 3:44 PM EDT 01/08/2025 3:44 PM EDT Narrative [facility] - 01/08/2025 5:22 PM EDT Therapeutic decision making should be based on absolute values, rather than percentages. David Workman MD LAB BLOOD ORDERABLES Final Resul t [facility] [address] [place] [address] * (ABNORMAL) PTH Intact Total (01/08/2025 3:44 PM EDT) PTH Intact Total 107(H) 9 - 77 pg/mL 01/08/2025 8:08 PM EDT [facility] Blood Venous blood specimen / Unknown Venipuncture / Unknown 01/08/2025 3:44 PM EDT 01/08/2025 3:44 PM EDT Narrative [facility] - 01/08/2025 8:08 PM EDT Assay performed by immunoassay at the [facility]. Performed on [employer] chemiluminescent immunoassay, tractable to the World Health Organization's first international standard for PTH from the [facility], Code 79/500. Results obtained from different test methods or kits cannot be used interchangeably. us David Workman MD LAB BLOOD ORDERABLES Final Resul t [facility] [address] [place] [address] * (ABNORMAL) Renal Function Panel, Plasma (01/08/2025 3:44 PM EDT) Pathologist [facility] Glucose, Plasma 96 74 - 99 mg/dL 01/08/2025 5:54 PM EDT [facility] BUN, Plasma 8 7 - 21 mg/dL 01/08/2025 5:54 PM EDT [facility] Creatinine, Plasma 1.26(H) 0.70 - 1.20 mg/dL 01/08/2025 5:54 PM EDT [facility] BUN/Creatinine Ratio 6 01/08/2025 5:54 PM EDT [facility] Sodium, Plasma 140 136 - 145 mmol/L 01/08/2025 5:54 PM EDT [facility] Potassium, Plasma 3.5(L) 3.6 - 4.9 mmol/L 01/08/2025 5:54 PM EDT [facility] Chloride, Plasma 102 97 - 107 mmol/L 01/08/2025 5:54 PM EDT [facility] CO2, Plasma 26 22 - 29 mmol/L 01/08/2025 5:54 PM EDT [facility] Anion Gap 12 6 - 16 mmol/L 01/08/2025 5:54 PM EDT [facility] Total Calcium, Plasma 9.1 8.9 - 10.2 mg/dL 01/08/2025 5:54 PM EDT [facility] Phosphorus, Plasma 3.3 2.5 - 4.5 mg/dL 01/08/2025 5:54 PM EDT [facility] Albumin, Plasma 4.4 3.5 - 5.2 g/dL 01/08/2025 5:54 PM EDT [facility] eGFRcr 66.5 mL/min/1.7 3m*2 01/08/2025 5:54 PM EDT [facility] Comment:Reported eGFRcr in m L/min/1.73m2 is based the CKD-EPI 2020 equation that does not use a race coefficient. Blood Venous blood specimen / Unknown Venipuncture / Unknown 01/08/2025 3:44 PM EDT 01/08/2025 3:44 PM EDT us David Workman MD LAB BLOOD ORDERABLES Final Resul t Performing Organization Address City/[facility] de Phone Number [facility] [address] [place] [address] * Albumin-creatinine ratio, urine, random (01/08/2025 3:40 PM EDT) Microalbumin, Urine 1.78 <1.9 mg/dL 01/08/2025 6:10 PM EDT [facility] Creatinine, Urine 87 mg/dL 01/08/2025 6:10 PM EDT [facility] Albumin/Creati nine Ratio 20 0 - 30 mg/g creatinine 01/08/2025 6:10 PM EDT [facility] Urine Urine specimen obtained by clean catch procedure / Unknown Non-blood Collection / Unknown 01/08/2025 3:40 PM EDT 01/08/2025 3:40 PM EDT us David Workman MD LAB URINE ORDERABLES Final Resul t Performing Organization Address City/[facility]/ZIP Co de Phone Number [facility] [address] [place] [address] * Protein, Random, Urine with Creatinine (01/08/2025 3:40 PM EDT) Protein, Urine 13 mg/dL 01/08/2025 5:55 PM EDT [facility] Creatinine, Urine 86 mg/dL 01/08/2025 5:55 PM EDT [facility] Protein/Creati nine Ratio 0.2 mg/mg Creat 01/08/2025 5:55 PM EDT [facility] Urine Urine specimen obtained by clean catch procedure / Unknown Non-blood Collection / Unknown 01/08/2025 3:40 PM EDT 01/08/2025 3:40 PM EDT us David Workman MD LAB URINE ORDERABLES Final Resul t [facility] [address] [place] [id number] * Urinalysis with reflex microscopic (Culture NOT Included) (01/08/2025 3:40 PM EDT) Color, Urine Yellow LAB URINALYSIS - AUTOMATED METHOD 01/08/2025 5:15 PM EDT [facility] Clarity, Urine Clear LAB URINALYSIS - AUTOMATED METHOD 01/08/2025 5:15 PM EDT [facility] Spec [place], Urine 1.010 1.005 - 1.030 LAB URINALYSIS - AUTOMATED METHOD 01/08/2025 5:15 PM EDT [facility] pH, Urine 6.0 5.0 - 8.0 LAB URINALYSIS - AUTOMATED METHOD 01/08/2025 5:15 PM EDT [facility] Protein, Urine Negative Negative mg/dL LAB URINALYSIS - AUTOMATED METHOD 01/08/2025 5:15 PM EDT [facility] Glucose, Urine Negative Negative mg/dL LAB URINALYSIS - AUTOMATED METHOD 01/08/2025 5:15 PM EDT [facility] Ketones, Urine Negative Negative mg/dL LAB URINALYSIS - AUTOMATED METHOD 01/08/2025 5:15 PM EDT [facility] Blood, Urine Negative Negative LAB URINALYSIS - AUTOMATED METHOD 01/08/2025 5:15 PM EDT [facility] Bilirubin, Urine Negative Negative LAB URINALYSIS - AUTOMATED METHOD 01/08/2025 5:15 PM EDT [facility] Urobilinogen, Urine 0.2 0.2 to 1.0 mg/dL LAB URINALYSIS - AUTOMATED METHOD 01/08/2025 5:15 PM EDT [facility] Leukocytes, Urine Negative Negative LAB URINALYSIS - AUTOMATED METHOD 01/08/2025 5:15 PM EDT [facility] Nitrite, Urine Negative Negative LAB URINALYSIS - AUTOMATED METHOD 01/08/2025 5:15 PM EDT [facility] Urine Urine specimen obtained by clean catch procedure / Unknown Non-blood Collection / Unknown 01/08/2025 3:40 PM EDT 01/08/2025 3:40 PM EDT us David Workman MD LAB URINE ORDERABLES Final Resul t [facility] [address] [place] [id number] * (ABNORMAL) Pain Management, Quantitative Urine Drug Testing (01/08/2025 1:38 PM EDT) [place] Alprazolam <20 <20 ng/mL 01/11 9:44 AM EDT [facility] [place] Midazolam <20 <20 ng/mL 2024 9:44 AM EDT [facility] [place] Triazolam <20 <20 ng/mL 2024 9:44 AM EDT [facility] Alprazolam <10 <10 ng/mL 01/11/2025 9:44 AM EDT [facility] Aminoclonazepam <20 <20 ng/mL 9:44 AM EDT [facility] Amphetamine <50 <50 ng/mL 01/11/2025 9:44 AM EDT [facility] Benzoylecgonine <50 <50 ng/mL 9:44 AM EDT [facility] Buprenorphine <10 <10 ng/mL 01/11/2025 9:44 AM EDT [facility] Buprenorphine Glucuronide <50 <50 ng/mL 01/11/2025 9:44 AM EDT [facility] Butalbital <50 <50 ng/mL 01/11/2025 9:44 AM EDT [facility] 9 Carboxy THC <10 <10 ng/mL 01/11/2025 9:44 AM EDT [facility] 9 Carboxy THC Glucuronide <25 <25 ng/mL 01/11/2025 9:44 AM EDT [facility] Clonazepam <10 <10 ng/mL 01/11/2025 9:44 AM EDT [facility] Codeine <50 <50 ng/mL 01/11/2025 9:44 AM EDT [facility] Codeine Glucuronide <50 <50 ng/mL 01/11 9:44 AM EDT [facility] Cyclobenzaprine <50 <50 ng/mL 9:44 AM EDT [facility] Desmethyl Tramadol <50 <50 ng/mL 2024 9:44 AM EDT [facility] Diazepam <10 <10 ng/mL 01/11/2025 9:44 AM EDT [facility] EDDP - Methadone Metabolite <50 <50 ng/mL 01/11/2025 9:44 AM EDT [facility] Fentanyl <1 <1 ng/mL 01/11/2025 9:44 AM EDT [facility] Hydrocodone 168(H) <50 ng/mL 01/11/2025 9:44 AM EDT [facility] Hydromorphone <50 <50 ng/mL 01/11/2025 9:44 AM EDT [facility] Hydromorphone Glucuronide 157(H) <50 ng/mL 01/11/2025 9:44 AM EDT [facility] Lorazepam <20 <20 ng/mL 01/11/2025 9:44 AM EDT [facility] Lorazepam Glucuronide <50 <50 ng/mL 01/11/2025 9:44 AM EDT [facility] MDA <50 <50 ng/mL 01/11/2025 9:44 AM EDT [facility] MDMA <50 <50 ng/mL 01/11/2025 9:44 AM EDT [facility] Meperidine <50 <50 ng/mL 01/11/2025 9:44 AM EDT [facility] Methadone <50 <50 ng/mL 01/11/2025 9:44 AM EDT [facility] Methamphetamine <50 <50 ng/mL 9:44 AM EDT [facility] Methylphenidate <50 <50 ng/mL 9:44 AM EDT [facility] 6 Monoacetyl morphine <10 <10 ng/mL 01/11/2025 9:44 AM EDT [facility] Morphine <50 <50 ng/mL 01/11/2025 9:44 AM EDT [facility] Morphine Glucuronide <50 <50 ng/mL 12/21 9:44 AM EDT [facility] Naloxone <50 <50 ng/mL 01/11/2025 9:44 AM EDT [facility] Naloxone Glucuronide <50 <50 ng/mL 12/21 9:44 AM EDT [facility] Norbuprenorphine <10 <10 ng/mL 01/12/20 9:44 AM EDT [facility] Norbuprenorphine Glucuronide <50 <50 ng/mL 01/11/2025 9:44 AM EDT [facility] Nordiazepam <20 <20 ng/mL 01/11/2025 9:44 AM EDT [facility] Norfentanyl <2 <2 ng/mL 01/11/2025 9:44 AM EDT [facility] Normeperidine <50 <50 ng/mL 01/11/2025 9:44 AM EDT [facility] PCP Quant, Ur <50 <50 ng/mL 01/11/2025 9:44 AM EDT [facility] Phenobarbital <50 <50 ng/mL 01/11/2025 9:44 AM EDT [facility] Oxazepam <20 <20 ng/mL 01/11/2025 9:44 AM EDT [facility] Oxazepam Glucuronide <50 <50 ng/mL 12/21 9:44 AM EDT [facility] Oxycodone <50 <50 ng/mL 01/11/2025 9:44 AM EDT [facility] Oxymorphone <50 <50 ng/mL 01/11/2025 9:44 AM EDT [facility] Oxymorphone Glucuronide <50 <50 ng/mL 01/11/2025 9:44 AM EDT [facility] Secobarbital <50 <50 ng/mL 01/11/2025 9:44 AM EDT [facility] Tramadol <50 <50 ng/mL 01/11/2025 9:44 AM EDT [facility] Temazepam <20 <20 ng/mL 01/11/2025 9:44 AM EDT [facility] Temazepam Glucuronide <50 <50 ng/mL 01/11/2025 9:44 AM EDT [facility] Urine Urine specimen obtained by clean catch procedure / Unknown Non-blood Collection / Unknown 01/08/2025 1:38 PM EDT 01/08/2025 1:38 PM EDT Narrative [facility] - 01/11/2025 9:44 AM EDT [...] laboratory. Test performed by LC-MS/MS at the [facility]. This test was developed and its performance characteristics determined by [facility]. It has not been cleared or approved by the FDA. The laboratory is regulated under CLIA as qualified to perform high-complexity testing. This test is used for clinical purposes. Leslie Morrison DO LAB URINE ORDERABLES Final Result [facility] [address] [place] [address] from Last 3 Months Insurance [facility] MEDICAID Care Teams Emts Relationship Specialty Start Date End Date Inna Serrano APRN [address] [place] [address] PCP - General 02/19/24 Ángela Millard, FISHING HAND [address] [place] [address] Nurse Practitioner Neurosurgery 09/17/21
[2025-04-02 13:32] LABS: Hematocrit 50.1 % (42.0-52.0); Hemoglobin 16.9 g/dL (14.1-18.0); Mean Corpuscular HGB Conc 33.7 g/dL (31.8-35.4); Mean Corpuscular Hemoglobin 31.8 pg (27.0-31.2); Mean Corpuscular Volume 94.4 fl (80-94); Nucleated Red Blood Cells % 0 %; Platelet Count 158 K/mm3 (142-424); Red Blood Count 5.31 M/mm3 (4.60-6.20); Red Cell Distribution Width-SD 44.6 fL; White Blood Count 8.4 K/mm3 (4.8-10.8)
[2025-04-02 14:03] LABS: Albumin Level 4.4 g/dl (3.5-5.0); Anion Gap 9.9 mEq/L (5-15); Blood Urea Nitrogen 9 mg/dl (9-20); Calcium 9.5 mg/dl (8.4-10.2); Carbon Dioxide 30 mmol/L (22.0-30.0); Chloride 103 mmol/L (98-107); Creatinine,Serum 1.20 mg/dl (0.66-1.25); Estimated Glomerular Filt Rate 62 ml/min (>60); GFR (African American) 76 ML/MIN (>60); Glucose 98 mg/dl (74-100); Phosphorous 3.6 mg/dl (2.5-4.5); Potassium 3.9 mmoL/L (3.5-5.1); Sodium 139 mmol/L (136-145)
[2025-04-02 14:29] LABS: 25-OH Vitamin D, Total 15.9 ng/mL (30-100)
== END 2025-04-02 23:59 | disposition home or self-care (01) ==
LOC: LAB 12:34
PROVIDERS: Student in an Organized Health Care Education/Training Program; PCP Nurse Practitioner; Visit Provider Internal Medicine
DX: N18.31 Chronic kidney disease, stage 3a (principal)
CPT/HCPCS: 36415; 80069; 82306; 85027